=== PATIENT | male | born 1980 | race American Indian/Alaskan Native ===

== ENCOUNTER 2021-05-23 09:14 | Inpatient (IN) | payer OTHER ==
[2021-05-23] MEDS ORDERED: NALOXONE 2 MG/2 ML INJ ONE ×3 (09:16→09:32)
[2021-05-23] MEDS ORDERED: LACTATED RINGERS 1,000 ML ONE (09:27)
[2021-05-23] MEDS ORDERED: NALOXONE 0.4 MG/1 ML INJ IV ONE (09:27)
--- NOTE | 2021-05-23 09:43 | Emergency Department Report ---
<JEANNIE ZAPATA - Last Filed: 05/23/21 11:35> History of Present Illness - General Chief Complaint: Overdose Stated Complaint: OVERDOSE Time Seen by Provider: 05/23/21 09:26 - Related Data Home Medications Medication Instructions Recorded Confirmed Last Taken Unobtainable 09/13/13 09/13/13 Unknown Allergies Allergy/AdvReac Type Severity Reaction Status Date / Time No Known Allergies Allergy Unverified 09/13/13 00:07 ED Past Medical Hx - Medications Home Medications: Home Medications Medication Instructions Recorded Confirmed Last Taken Type Unobtainable 09/13/13 09/13/13 Unknown History - Intubation Time Out Performed: Yes Sedative: Etomidate Mg Given: 20 Paralytic: Succinylcholine Mg Given: 200 Laryngoscope: fiberoptic video scope Size: 4 ET Tube Size: 7.5 Tube Secured Depth (cm): 26 Tube Secured Location: teeth Tube Placement Confirmation: visualized tube passing t, equal breath sounds bilat, no breath sounds over epi, confirmation by capnometr Patient Tolerated Procedure: well, no complications Intubation Complications: none Additional Comments: Done by Jeannie Zapata PA-C ED Medical Decision Making - Lab Data Result diagrams: 05/23/21 09:38 05/23/21 09:38 ED Disposition Clinical Impression: Obtundation Hypothermia Qualifiers: Encounter type: initial encounter Qualified Code(s): T68.XXXA - Hypothermia, initial encounter Overdose Qualifiers: Encounter type: initial encounter Injury intent: undetermined intent Qualified Code(s): T50.904A - Poisoning by unspecified drugs, medicaments and biological substances, undetermined, initial encounter Pulmonary edema Qualifiers: Chronicity: acute Qualified Code(s): J81.0 - Acute pulmonary edema Disposition: 09 ADMITTED INPATIENT Condition: Stable Instructions: Pulmonary Edema (ED) Referrals: PRIMARY CARE, [Primary Care Provider] - 3-5 Days <CARA FELDMAN - Last Filed: 05/23/21 11:46> History of Present Illness - History of Present Illness Initial Comments: Patient was brought in by EMS secondary to a possible overdose. EMS provides all the history as the patient is obtunded. EMS reports that they were initially called for a cardiac arrest. They arrived on scene and found the house filled with a bunch of family. The patient was reportedly unresponsive. Some family mentioned that he had overdosed on GHB. Paramedics established an IO because IV peripherally was unsuccessful. They administered Narcan intranasal without symptomatic change. They did state that his respirations did picked up but he never regained lucidity or consciousness. They transported the patient here with ongoing treatment. He was on mask for oxygen. He had a nasopharyngeal airway and an oropharyngeal airway. He had sonorous respirations. Paramedics report that the patient has a history of heart disease and CHF. Apparently he also has a history of drug abuse. ED Review of Systems ROS: Stated complaint: OVERDOSE Other details as noted in HPI Comment: Unobtainable due to pts medical conditions ED Past Medical Hx - Past Medical History Hx Congestive Heart Failure: No Hx Diabetes: No Hx Arthritis: No Hx Asthma: No Hx COPD: No Additional medical history: Cannot be obtained for the patient secondary to obt undation and altered mental status - Surgical History Additional Surgical History: Cannot be obtained for the patient secondary to obtundation and altered mental status - Social History Smoking Status: Current Every Day Smoker Substance Use Type: Other (Cannot be obtained for the patient secondary to obtundation and altered mental status) ED Physical Exam - General Limitations: Altered Mental Status, Other (Patient is obtunded. Pulse ox was hypoxic on a nonrebreather. He has sonorous respirations.) General appearance: obtunded - Head Head exam: Present: atraumatic, normocephalic - Eye Eye exam: Present: normal appearance, other (Pupils are 3 mm and sluggish). Absent: scleral icterus - ENT ENT exam: Present: normal orophraynx, normal external ear exam, other (No pooling secretions) - Neck Neck exam: Present: normal inspection, other (Trachea midline) - Respiratory Respiratory exam: Present: rhonchi (Bilateral). Absent: respiratory distress - Cardiovascular Cardiovascular Exam: Present: regular rate, normal rhythm - GI/Abdominal GI/Abdominal exam: Present: soft - Extremities Exam Extremities exam: Absent: pedal edema - Back Exam Back exam: Present: normal inspection - Neurological Exam Neurological exam: Present: altered (Obtunded), other (Appropriate withdrawal to painful stimuli) - Psychiatric Psychiatric exam: Present: other (Obtunded) - Skin Skin exam: Present: other (Cold to touch) ED Course Vital Signs 05/23/21 05/23/21 05/23/21 09:22 09:26 09:27 Temperature 92.9 F L Pulse Rate 84 86 Respiratory 27 H 23 Rate Blood Pressure 130/96 128/89 [Right] O2 Sat by Pulse 87 92 91 Oximetry 05/23/21 05/23/21 05/23/21 10:16 10:37 11:27 Temperature Pulse Rate 100 H 93 H 103 H Respiratory 21 26 H 21 Rate Blood Pressure 126/82 136/93 120/87 [Right] O2 Sat by Pulse 96 92 86 Oximetry - Reevaluation(s) Reevaluation #1: 05/23/21 09:43 EMS have been met on arrival. Narcan had been given multiple times. EJ was placed. IV fluids were ordered. Labs were ordered. Old records noted. Reevaluation #2: 05/23/21 10:17 Core temperature had previously been noted and Isabelle hugger started. Labs are still pending. Reevaluation #3: 05/23/21 11:44 Patient was intubated by the PABLO with my direct supervision. Patient was subsequently admitted to Dr. Florian. 05/23/21 11:45 ED Medical Decision Making - Lab Data Result diagrams: 05/23/21 09:38 05/23/21 09:38 Rhythm strip: Normal sinus rhythm without ectopy per monitor observe 10 seconds. - Radiology Data Radiology results: report reviewed - Medical Decision Making Patient presented by EMS as an overdose. The history that we have is that he overdosed on GHB. We cannot confirm this. His urine drug screen has been reviewed. Patient was hypoxic. He was somnolent. He did not have pooling secretions and he still had a gag, but it was felt that he needed intubation based on his degree of hypoxia and obtundation. He has been intubated will go to the ICU. Poison control can be notified of a possible GHB overdose. Patient does not have any obvious infectious pathology. There is no visible sign of trauma suggestive of injury. He was hypothermic and this has been addressed with Isabelle hugger and warming mechanisms. Critical Care Time: Yes (55 minutes exclusive of all procedures) Critical care attestation.: If time is entered above; I have spent that time in minutes in the direct care of this critically ill patient, excluding procedure time. ED Disposition Is pt being admited?: Yes
[2021-05-23 10:21] LABS: Basophils # (Auto) 0.1 K/mm3 (0.0-0.1); Basophils % (Auto) 1.2 % (0.0-1.8); Eosinophils % (Auto) 0.3 % (0.0-4.3); Hematocrit 46.2 % (35.5-45.6); Hemoglobin 14.7 gm/dl (11.8-15.2); Lymphocytes # (Auto) 2.5 K/mm3 (1.2-5.4); Lymphocytes % (Auto) 27.1 % (13.4-35.0); Mean Corpuscular HGB Conc 32 % (32-34); Mean Corpuscular Volume 91 fl (84-94); Monocytes # (Auto) 0.5 K/mm3 (0.0-0.8); Monocytes % (Auto) 5.5 % (0.0-7.3); Platelet Count 268 K/mm3 (140-440); Red Blood Count 5.09 M/mm3 (3.65-5.03); Red Cell Distribution Width 15.1 % (13.2-15.2)
[2021-05-23 10:39] LABS: ABG Base Excess -3.7 mmol/L (-2.0-3.0); ABG HCO3 21.2 mmol/L (20.0-26.0); ABG Methemoglobin 0.7 % (0.0-1.5); ABG Oxygen Saturation 83.7 % (95.0-99.0); ABG PCO2 38.4 mm Hg; ABG PH 7.361 pH Units (7.350-7.450); ABG PO2 52.2 mm Hg (80.0-90.0)
[2021-05-23 10:42] LABS: Alanine Aminotransferase 27 units/L (7-56); Albumin 3.6 g/dL (3.9-5); BUN/Creatinine Ratio 14; Blood Urea Nitrogen 17 mg/dL (9-20); Calcium 9.2 mg/dL (8.4-10.2); Hemolysis Index 2
--- NOTE | 2021-05-23 10:45 | XRay Report ---
XR chest 1V ap INDICATION / CLINICAL INFORMATION: overdose. COMPARISON: 09/13/2013 FINDINGS: SUPPORT DEVICES: None. HEART /PULMONARY VASCULATURE: Heart is enlarged. Mild pulmonary vasculature congestion. LUNGS / PLEURA: No significant pulmonary or pleural abnormality. No pneumothorax. IMPRESSION: Mild CHF/volume overload. Signer Name: Ezra Chavez MD Signed: 05/23/2021 10:40 AM Workstation Name: [id number]
[2021-05-23] MEDS ORDERED: SUCCINYLCHOLINE CHLORIDE 200 MG/10 ML INJ MDV IV ONE (10:55)
[2021-05-23] MEDS ORDERED: ETOMIDATE 20 MG/10 ML INJ IV ONE ×2 (10:55→12:00)
[2021-05-23 10:59] LABS: Benzodiazepines Screen,Urine Negative; Cannabinoid Screen,Urine Negative; Cocaine Screen,Urine Negative; Methadone Screen,Urine Negative; Opiate Screen,Urine Negative
[2021-05-23 11:11] LABS: Amphetamine Screen,Urine Positive
[2021-05-23] MEDS: FUROSEMIDE 40 MG/4 ML INJ IV ONE ×2 (11:31→11:32)
[2021-05-23] MEDS ORDERED: HYDROmorphone 1 MG/1 ML INJ IV PRN (11:43)
[2021-05-23] MEDS ORDERED: MORPHINE 2 MG/1 ML INJ IV PRN (11:43)
[2021-05-23] MEDS ORDERED: ONDANSETRON 4 MG/2 ML INJ IV PRN (11:43)
--- NOTE | 2021-05-23 11:43 | History and Physical Report ---
History of Present Illness Chief complaint: Unresponsive History of present illness: 40 YO Male with Methamphetamine Dependence, Nicotine Dependence presents to ED for evaluation. Pt is intubated and ambulatory support at time of evaluation and is unable to provide history. Patient history taken by EMS staff, ED staff, as well as patient family was made available by telephone for interview. As per family the patient was found down and unresponsive today. EMS was notified by family members and upon arrival the patient was found to be in distress. Patient family reports that patient "overdosed on GHB". Patient treated with intranasal Narcan without improvement in symptoms. The patient was subsequently transported to [facility] for further care and evaluation of the aforementioned symptoms. The patient was seen and evaluated in the emergency department. All lab and imaging studies reviewed. The patient was found to be unresponsive and unable to protect his airway. The patient was intubated for airway protection. Patient found to have acute encephalopathy, and hypothermia. Poison control notification by ED staff physician requested prior to admission. Patient admitted to ICU and treated with supportive care. Critical care team consulted. No reports of fever, chills, chest pain, palpitation, productive cough, skin rash, recent ill contacts, known exposure to COVID-19. No prior admission for r shanicew. No medication listed at time of admission for reconciliation. Advanced care planning conducted in ED. Mental health team consulted. Past History Past Medical History: other (See HPI) Past Surgical History: No surgical history, Other (Reviewed) Social history: single. denies: smoking Family history: hypertension Medications and Allergies Allergies Allergy/AdvReac Type Severity Reaction Status Date / Time No Known Allergies Allergy Unverified 09/13/13 00:07 Home Medications Medication Instructions Recorded Confirmed Last Taken Type Unobtainable 09/13/13 09/13/13 Unknown History Active Meds: Active Medications Propofol (Diprivan 10 Mg/Ml) 1,000 mg in 100 mls @ 12.247 mls/hr IV TITR MARK; Protocol Midazolam HCl (Midazolam 5 Mg/5 Ml Inj Mdv) 4 mg IV ONCE NR Stop: 05/23/21 13:00 Last Admin: 05/23/21 11:32 Dose: 4 mg Review of Systems ROS unobtainable: due to endotracheal tube, due to mental status Exam - Constitutional Vitals: Temp Pulse Resp BP Pulse Ox 92.9 F L 103 H 21 120/87 86 05/23/21 09:27 05/23/21 11:27 05/23/21 11:27 05/23/21 11:27 05/23/21 11:27 General appearance: Present: mild distress, obese - EENT Eyes: Present: miosis ENT: hearing decreased - Neck Neck: Present: supple, normal ROM - Respiratory Respiratory effort: labored Respiratory: bilateral: diminished - Cardiovascular Heart Sounds: Present: S1 & S2. Absent: rub, click - Extremities Extremities: pulses symmetrical, No edema Peripheral Pulses: within normal limits - Abdominal General gastrointestinal: Present: soft, non-tender, non-distended, normal bowel sounds Male genitourinary: Present: normal - Integumentary Integumentary: Present: clear, warm, dry - Musculoskeletal Musculoskeletal: generalized weakness - Psychiatric Psychiatric: no appropriate mood/affect, no intact judgment & insight, no memory intact - Neurologic Neurologic: CNII-XII intact, no focal deficits, moves all extremities, no gait normal HEART Score - HEART Score Troponin: Troponin T < 0.010 ng/mL (0.00-0.029) 05/23/21 09:38 Results - Labs CBC & Chem 7: 05/23/21 09:38 05/23/21 09:38 Labs: Abnormal lab results 05/23/21 05/23/21 05/23/21 Range/Units 09:38 09:38 09:38 RBC 5.09 H (3.65-5.03) M/mm3 Hct 46.2 H (35.5-45.6) % ABG pO2 (80.0-90.0) mm Hg ABG O2 Saturation (95.0-99.0) % ABG Base Excess (-2.0-3.0) mmol/L Oxyhemoglobin (95.0-99.0) % Carbon Dioxide 20 L (22-30) mmol/L Glucose 147 H (75-100) mg/dL NT-Pro-B Natriuret Pep (0-450) pg/mL Albumin 3.6 L (3.9-5) g/dL Salicylates < 0.3 L (2.8-20.0) mg/dL Acetaminophen (10.0-30.0) ug/mL 05/23/21 05/23/21 05/23/21 Range/Units 09:38 09:38 Unknown RBC (3.65-5.03) M/mm3 Hct (35.5-45.6) % ABG pO2 52.2 L (80.0-90.0) mm Hg ABG O2 Saturation 83.7 L (95.0-99.0) % ABG Base Excess -3.7 L (-2.0-3.0) mmol/L Oxyhemoglobin 81.1 L (95.0-99.0) % Carbon Dioxide (22-30) mmol/L Glucose (75-100) mg/dL NT-Pro-B Natriuret Pep 6058 H (0-450) pg/mL Albumin (3.9-5) g/dL Salicylates (2.8-20.0) mg/dL Acetaminophen 5.0 L (10.0-30.0) ug/mL Assessment and Plan - Patient Problems (1) Acute respiratory failure Current Visit: Yes Status: Acute Qualifiers: Respiratory failure complication: hypoxia Qualified Code(s): J96.01 - Acute respiratory failure with hypoxia Plan to address problem: Patient intubated and on ventilatory support. Wean vent as tolerated. ABG, sedation holiday, spontaneous breathing trial. The high probability of a clinically significant, sudden or life threatening deterioration of the [pulmonary, neuro, endocrine] system(s) required my full and direct attention, intervention and personal management. The aggregate critical care time was [65] minutes. This time is in addition to time spent performing reported procedures but includes the following: [x] Data Review and interpretation [x] Patient assessment and monitoring of vital signs [x] Documentation [x] Medication orders and management (2) Acute encephalopathy Current Visit: Yes Status: Acute Plan to address problem: Supportive care, neurochecks, seizure precautions, aspiration precautions, supportive care. (3) Hypothermia Current Visit: Yes Status: Acute Qualifiers: Encounter type: initial encounter Qualified Code(s): T68.XXXA - Hypothermia, initial encounter Plan to address problem: Warming blanket, supportive care, bear hugger. (4) Overdose by ingestion Current Visit: Yes Status: Acute (5) DVT prophylaxis Current Visit: No Status: Acute Plan to address problem: SCDs to bilateral lower extremities while in bed (6) Advance care planning Current Visit: Yes Status: Acute Plan to address problem: Disease education conducted, care plan discussed, diagnosis discussed, prognosis discussed, patient is full code. Patient family acknowledges understanding and agreement with care plan, +30 minutes. (7) Nicotine dependence Current Visit: Yes Status: Acute Qualifiers: Nicotine product type: cigarettes Plan to address problem: Supportive care, nicotine transdermal patch as clinically indicated. +15 minutes.
--- NOTE | 2021-05-23 11:53 | XRay Report ---
XR chest 1V ap INDICATION / CLINICAL INFORMATION: intubation. COMPARISON: Radiograph from earlier same day. FINDINGS: SUPPORT DEVICES: Endotracheal tube projects over the midtrachea. HEART /PULMONARY VASCULATURE: Unchanged cardiomegaly and pulmonary vasculature congestion. LUNGS / PLEURA: Mild diffuse interstitial edema. No sizable pleural effusion. No pneumothorax. IMPRESSION: Satisfactory position of endotracheal tube. Signer Name: Ezra Chavez MD Signed: 05/23/2021 11:48 AM Workstation Name: [id number]
[2021-05-23] MEDS ORDERED: SUCCINYLCHOLINE CHLORIDE 200 MG/10 ML INJ MDV ONE (12:00)
[2021-05-23] MEDS ORDERED: MIDAZOLAM 5 MG/5 ML INJ MDV IV NR (12:00)
[2021-05-23] MEDS ORDERED: MIDAZOLAM 5 MG/5 ML INJ MDV IV ONE ×2 (12:00→13:44)
[2021-05-23 13:02] LABS: ABG Base Excess -6.7 mmol/L (-2.0-3.0); ABG HCO3 22.1 mmol/L (20.0-26.0); ABG Methemoglobin 0.6 % (0.0-1.5); ABG Oxygen Saturation 93.5 % (95.0-99.0); ABG PCO2 56.9 mm Hg; ABG PH 7.208 pH Units (7.350-7.450); ABG PO2 83.5 mm Hg (80.0-90.0)
[2021-05-23] MEDS: SODIUM CHLORIDE 0.9% 1000 ML 1,000 ML IV SCH (16:57)
[2021-05-23] MEDS: ACETAMINOPHEN 650 MG RECT SUPP PR PRN (17:07)
[2021-05-23 18:07] LABS: ABG Base Excess -4.5 mmol/L (-2.0-3.0); ABG HCO3 23.3 mmol/L (20.0-26.0); ABG Methemoglobin 0.5 % (0.0-1.5); ABG Oxygen Saturation 94.6 % (95.0-99.0); ABG PCO2 52.5 mm Hg; ABG PH 7.265 pH Units (7.350-7.450); ABG PO2 80.7 mm Hg (80.0-90.0)
[2021-05-23] MEDS: MIDAZOLAM 2 MG/2 ML INJ IV PRN (23:57)
[2021-05-23] MEDS: MIDAZOLAM 100 MG in SODIUM CHLORIDE 0.9% 80 ML IV SCH (23:59)
[2021-05-24] MEDS: MIDAZOLAM 2 MG/2 ML INJ IV PRN ×4 (00:18→07:30)
[2021-05-24] MEDS: fentaNYL DRIP Premix 2,000 MCG/100 ML BAG IV SCH ×2 (00:50→18:23)
[2021-05-24] MEDS: fentaNYL 100 MCG/2 ML INJ IV PRN ×3 (00:55→22:38)
[2021-05-24] MEDS ORDERED: ALBUMIN HUMAN 25% (25 GM/100 ML) INJ IV ONE (04:39)
[2021-05-24] MEDS ORDERED: SODIUM BICARB 8.4% 50 MEQ/50 ML SYRINGE IV ONE (04:39)
[2021-05-24 05:44] LABS: Hematocrit 47.3 % (35.5-45.6); Hemoglobin 15.1 gm/dl (11.8-15.2); Mean Corpuscular HGB Conc 32 % (32-34); Mean Corpuscular Volume 90 fl (84-94); Platelet Count 240 K/mm3 (140-440); Red Blood Count 5.23 M/mm3 (3.65-5.03); Red Cell Distribution Width 15.3 % (13.2-15.2)
[2021-05-24 06:12] LABS: Albumin 2.8 g/dL (3.9-5); Calcium 8.7 mg/dL (8.4-10.2)
[2021-05-24 07:10] LABS: Monocytes % (Manual) 0 % (0.0-7.3); Total Cells Counted 100
[2021-05-24 07:11] LABS: Basophils % (Manual) 0 % (0.0-1.8); Eosinophils % (Manual) 0 % (0.0-4.3); Myelocytes # (Manual) 11.7 K/mm3; Platelet Estimate Consistent w Auto; Promyelocytes # (Manual) 0.7 K/mm3
[2021-05-24] MEDS ORDERED: INSULIN REGULAR, HUMAN 100 UNITS/1 ML IV ONE (07:15)
[2021-05-24] MEDS ORDERED: SODIUM POLYSTYRENE 15 GM/60 ML ORAL LIQD PO ONE (07:15)
[2021-05-24] MEDS ORDERED: DEXTROSE 50% IN WATER (25GM) 50 ML SYRINGE IV ONE (07:15)
[2021-05-24] MEDS ORDERED: CALCIUM GLUCONATE 1,000 MG in SODIUM CHLORIDE 0.9% 100 ML IV ONE (07:15)
[2021-05-24] MEDS ORDERED: DEXTROSE 50% IN WATER (25GM) 50 ML SYRINGE IV SCH (08:30)
--- NOTE | 2021-05-24 08:44 | Progress Note ---
Assessment and Plan Assessment and plan: #Acute hypoxic respiratory failure - Intubated for airway protection - AB.3/38.4/52./21 on admission - CXR: mild interstitial edema - SAT/SBT trials daily - cxr/abg q48hr - PCCM consulted #Acute toxic metabolic encephalopathy - Encephalopathic on arrival. multifactorial drug OD, analia. - tox screen positive for amphetamines - Supportive management: IVF, monitor electrolytes - daily SAT trials. #Acute kidney injury due to acute tubular necrosis - Cr: 3.5 on 03/24, baseline 0.9. suspect dehydration vs toxic exposure vs rhabdo - ordered UA and CK. - avoid nephrotoxic agents - IVF, monitor volume status daily. - strict I/O, christianson - consult nephrology #Hyperkalemia - 6.3 on 03/24, s/p kionex, sodium bicarb, insulin, calcium gluconate - f/u repeat - nephrology consulted #Hypothermia - temp has normalized. #Overdose by ingestion - amphetamines in tox screen #Advance care planning Disease education conducted, care plan discussed, diagnoses discussed, prognosis discussed, patient is full code, patient acknowledges understanding and agree with care plan, +30 minutes. The high probability of a clinically significant, sudden or life threatening deterioration of the [pulmonary, renal] system(s) required my full and direct attention, intervention and personal management. The aggregate critical care time was [60] minutes. This time is in addition to time spent performing reported procedures but includes the following: [x] Data Review and interpretation [x] Patient assessment and monitoring of vital signs [x] Documentation [x] Medication orders and management History Interval history: Remains intubated and sedated. BP noted to be hypotensive and unresponsive to fluid bolus. Started levophed gtt. Hospitalist Physical - Physical exam Narrative exam: Physical Exam: VITAL SIGNS: Reviewed. GENERAL: The patient appears normally developed, Vital signs as documented. Intubated and sedated HEAD: No signs of head trauma. EYES: Pupils are equal. Extraocular motions intact. EARS: Hearing grossly intact. MOUTH: Oropharynx is normal. NECK: No adenopathy, no JVD. CHEST: Chest with clear breath sounds bilaterally. No wheezes, rales, or rhonchi. CARDIAC: Regular rate and rhythm. S1 and S2, without murmurs, gallops, or rubs. VASCULAR: No Edema. Peripheral pulses normal and equal in all extremities. ABDOMEN: Soft, non tender and non distended. No rebound or guarding, and no masses palpated. Bowel Sounds normal. MUSCULOSKELETAL: Good range of motion of all major joints. Extremities without clubbing, cyanosis or edema. NEUROLOGIC EXAM: Alert and oriented x 4. no focal sensory or strength deficits. PSYCHIATRIC: Mood normal. SKIN: detail exam as documented in skin assessment - Constitutional Vitals: Temp Pulse Resp BP Pulse Ox 98.4 F 107 H 31 H 66/40 98 05/24/21 03:16 05/24/21 08:00 05/24/21 08:00 05/24/21 08:00 05/24/21 08:00 General appearance: Present: mild distress, obese HEART Score - HEART Score Troponin: Troponin T < 0.010 ng/mL (0.00-0.029) 05/23/21 09:38 Results - Labs CBC & Chem 7: 05/24/21 05:14 05/24/21 05:14 Labs: Laboratory Last Values WBC 23.3 K/mm3 (4.5-11.0) H 05/24/21 05:14 RBC 5.23 M/mm3 (3.65-5.03) H 05/24/21 05:14 Hgb 15.1 gm/dl (11.8-15.2) 05/24/21 05:14 Hct 47.3 % (35.5-45.6) H 05/24/21 05:14 MCV 90 fl (84-94) 05/24/21 05:14 MCH 29 pg (28-32) 05/24/21 05:14 MCHC 32 % (32-34) 05/24/21 05:14 RDW 15.3 % (13.2-15.2) H 05/24/21 05:14 Plt Count 240 K/mm3 (140-440) 05/24/21 05:14 Lymph % (Auto) 27.1 % (13.4-35.0) 05/23/21 09:38 [place] % (Auto) 5.5 % (0.0-7.3) 05/23/21 09:38 Eos % (Auto) 0.3 % (0.0-4.3) 05/23/21 09:38 Baso % (Auto) 1.2 % (0.0-1.8) 05/23/21 09:38 Lymph # (Auto) 2.5 K/mm3 (1.2-5.4) 05/23/21 09:38 [place] # (Auto) 0.5 K/mm3 (0.0-0.8) 05/23/21 09:38 Eos # (Auto) 0.0 K/mm3 (0.0-0.4) 05/23/21 09:38 Baso # (Auto) 0.1 K/mm3 (0.0-0.1) 05/23/21 09:38 Add Manual Diff Complete 05/24/21 05:14 Total Counted 100 05/24/21 05:14 Seg Neutrophils % Housekeeper Supervisor 05/24/21 05:14 Seg Neuts % (Manual) 12.0 % (40.0-70.0) L 05/24/21 05:14 Band Neutrophils % 30.0 % 05/24/21 05:14 Lymphocytes % (Manual) 3.0 % (13.4-35.0) L 05/24/21 05:14 Reactive Lymphs % (Man) 1.0 % 05/24/21 05:14 Monocytes % (Manual) 0 % (0.0-7.3) 05/24/21 05:14 Eosinophils % (Manual) 0 % (0.0-4.3) 05/24/21 05:14 Basophils % (Manual) 0 % (0.0-1.8) 05/24/21 05:14 Metamyelocytes % 1.0 % 05/24/21 05:14 Myelocytes % 50.0 % 05/24/21 05:14 Promyelocytes % 3.0 % 05/24/21 05:14 Blast Cells % 0 % 05/24/21 05:14 Nucleated RBC % Not Reportable 05/24/21 05:14 Seg Neutrophils # 6.1 K/mm3 (1.8-7.7) 05/23/21 09:38 Seg Neutrophils # Man 2.8 K/mm3 (1.8-7.7) 05/24/21 05:14 Band Neutrophils # 7.0 K/mm3 05/24/21 05:14 Lymphocytes # (Manual) 0.7 K/mm3 (1.2-5.4) L 05/24/21 05:14 Abs React Lymphs (Man) 0.2 K/mm3 05/24/21 05:14 Monocytes # (Manual) 0.0 K/mm3 (0.0-0.8) 05/24/21 05:14 Eosinophils # (Manual) 0.0 K/mm3 (0.0-0.4) 05/24/21 05:14 Basophils # (Manual) 0.0 K/mm3 (0.0-0.1) 05/24/21 05:14 Metamyelocytes # 0.2 K/mm3 05/24/21 05:14 Myelocytes # 11.7 K/mm3 05/24/21 05:14 Promyelocytes # 0.7 K/mm3 05/24/21 05:14 Blast Cells # 0.0 K/mm3 05/24/21 05:14 WBC Morphology Not Reportable 05/24/21 05:14 Hypersegmented Neuts Not Reportable 05/24/21 05:14 Hyposegmented Neuts Not Reportable 05/24/21 05:14 Hypogranular Neuts Not Reportable 05/24/21 05:14 Smudge Cells Not Reportable 05/24/21 05:14 Toxic Granulation Not Reportable 05/24/21 05:14 Toxic Vacuolation Not Reportable 05/24/21 05:14 Dohle Bodies Not Reportable 05/24/21 05:14 Pelger-Huet Anomaly Not Reportable 05/24/21 05:14 Glenn Rods Not Reportable 05/24/21 05:14 Platelet Estimate Consistent w auto 05/24/21 05:14 Clumped Platelets Not Reportable 05/24/21 05:14 Plt Clumps, EDTA Not Reportable 05/24/21 05:14 Large Platelets Not Reportable 05/24/21 05:14 Giant Platelets Not Reportable 05/24/21 05:14 Platelet Satelliting Not Reportable 05/24/21 05:14 Plt Morphology Comment Not Reportable 05/24/21 05:14 RBC Morphology Not Reportable 05/24/21 05:14 Dimorphic RBCs Not Reportable 05/24/21 05:14 Polychromasia Not Reportable 05/24/21 05:14 Hypochromasia Not Reportable 05/24/21 05:14 Poikilocytosis Not Reportable 05/24/21 05:14 Anisocytosis Not Reportable 05/24/21 05:14 Microcytosis Not Reportable 05/24/21 05:14 Macrocytosis Not Reportable 05/24/21 05:14 Spherocytes Not Reportable 05/24/21 05:14 Pappenheimer Bodies Not Reportable 05/24/21 05:14 Sickle Cells Not Reportable 05/24/21 05:14 Target Cells Not Reportable 05/24/21 05:14 Tear Drop Cells Not Reportable 05/24/21 05:14 Ovalocytes Not Reportable 05/24/21 05:14 Helmet Cells Not Reportable 05/24/21 05:14 [place] Bodies Not Reportable 05/24/21 05:14 Turner Rings Not Reportable 05/24/21 05:14 [place] Cells Not Reportable 05/24/21 05:14 Bite Cells Not Reportable 05/24/21 05:14 Crenated Cell Not Reportable 05/24/21 05:14 Elliptocytes Not Reportable 05/24/21 05:14 Acanthocytes (Spur) Not Reportable 05/24/21 05:14 Rouleaux Not Reportable 05/24/21 05:14 Hemoglobin C Crystals Not Reportable 05/24/21 05:14 Schistocytes Not Reportable 05/24/21 05:14 Malaria parasites Not Reportable 05/24/21 05:14 Frandy Bodies Not Reportable 05/24/21 05:14 Hem Pathologist Commnt No 05/24/21 05:14 ABG pH 7.241 (7.320-7.450) L 05/24/21 03:44 POC ABG pCO2 41.6 mmHg (32.0-48.0) 05/24/21 03:44 ABG pCO2 38.4 mm Hg 05/23/21 Unknown POC ABG pO2 87.6 mmHg (83-108) 05/24/21 03:44 ABG pO2 52.2 mm Hg (80.0-90.0) L 05/23/21 Unknown POC ABG HCO3 17.5 05/24/21 03:44 ABG HCO3 21.2 mmol/L (20.0-26.0) 05/23/21 Unknown ABG O2 Saturation 95.8 (0-100) 05/24/21 03:44 ABG O2 Content 17.4 (0.0-44) 05/23/21 Unknown POC ABG Base Excess -9.5 05/24/21 03:44 ABG Base Excess -3.7 mmol/L (-2.0-3.0) L 05/23/21 Unknown ABG Hemoglobin 16.6 (12.0-17.5) 05/24/21 03:44 ABG Oxyhemoglobin 94.8 (94-98) 05/24/21 03:44 ABG Carboxyhemoglobin 2.5 % (0.0-5.0) 05/23/21 Unknown ABG Methemoglobin 0.2 (0.0-1.5) 05/24/21 03:44 ABG Sodium 137.9 mmol/L (136.0-145.0) 05/24/21 03:44 ABG Potassium 5.6 mmol/L (3.40-4.50) H 05/24/21 03:44 ABG Chloride 105.0 mmol/L (98-107) 05/24/21 03:44 ABG Glucose 53 mg/dL (65-95) L 05/24/21 03:44 Oxyhemoglobin 81.1 % (95.0-99.0) L 05/23/21 Unknown Carboxyhemoglobin 0.8 (0.5-1.5) 05/24/21 03:44 FiO2 100 % 05/23/21 Unknown FiO2 % 100.0 05/24/21 03:44 Sodium 144 mmol/L (137-145) 05/24/21 05:14 Potassium 6.3 mmol/L (3.6-5.0) H* D 05/24/21 05:14 Chloride 107.3 mmol/L (98-107) H 05/24/21 05:14 Carbon Dioxide 20 mmol/L (22-30) L 05/24/21 05:14 Anion Gap 23 mmol/L 05/24/21 05:14 BUN 33 mg/dL (9-20) H 05/24/21 05:14 Creatinine 3.5 mg/dL (0.8-1.3) H D 05/24/21 05:14 Estimated GFR 24 ml/min 05/24/21 05:14 BUN/Creatinine Ratio 9 % 05/24/21 05:14 Glucose 56 mg/dL (75-100) L 05/24/21 05:14 Calcium 8.7 mg/dL (8.4-10.2) 05/24/21 05:14 Total Bilirubin 1.90 mg/dL (0.1-1.2) H 05/24/21 05:14 AST 40 units/L (5-40) 05/24/21 05:14 ALT 24 units/L (7-56) 05/24/21 05:14 Alkaline Phosphatase 76 units/L (35-129) 05/24/21 05:14 Troponin T < 0.010 ng/mL (0.00-0.029) 05/23/21 09:38 NT-Pro-B Natriuret Pep 6058 pg/mL (0-450) H 05/23/21 09:38 Total Protein 4.9 g/dL (6.3-8.2) L D 05/24/21 05:14 Albumin 2.8 g/dL (3.9-5) L 05/24/21 05:14 Albumin/Globulin Ratio 1.3 % 05/24/21 05:14 Arterial Blood Glucose 53 mg/dL (65-95) L 05/24/21 03:44 Arterial Blood Ionized Calcium 4.6 mg/dL (4.6-5.3) 05/24/21 03:44 Salicylates < 0.3 mg/dL (2.8-20.0) L 05/23/21 09:38 Urine Opiates Screen Negative 05/23/21 09:41 Urine Methadone Screen Negative 05/23/21 09:41 Acetaminophen 5.0 ug/mL (10.0-30.0) L 05/23/21 09:38 Ur Barbiturates Screen Negative 05/23/21 09:41 Ur Phencyclidine Scrn Negative 05/23/21 09:41 Ur Amphetamines Screen Positive 05/23/21 09:41 U Benzodiazepines Scrn Negative 05/23/21 09:41 Urine Cocaine Screen Negative 05/23/21 09:41 U Marijuana (THC) Screen Negative 05/23/21 09:41 Drugs of Abuse Note Disclamer 05/23/21 09:41 Active Medications - Current Medications Current Medications: Generic Name Dose Route Start Last Admin Trade Name Freq PRN Reason Stop Dose Admin Acetaminophen 650 mg 05/23/21 11:43 05/23/21 17:07 Acetaminophen 650 Mg Rect Supp NC 650 mg Q6H PRN Administration Pain MILD(1-3)/Fever >100.5/EPSTEIN Dextrose 50 ml 05/24/21 08:30 Dextrose 50% In Water (25gm) 50 Ml Syringe IV 05/24/21 10:00 ONCE@0830 MARK Protocol Fentanyl 50 mcg 05/24/21 00:44 05/24/21 00:55 Fentanyl 100 Mcg/2 Ml Inj IV 50 mcg Q10MIN PRN Administration ANALGESIA Hydromorphone HCl 0.5 mg 05/23/21 11:43 Hydromorphone 1 Mg/1 Ml Inj IV Q24H PRN Pain , Severe (7-10) Sodium Chloride 1,000 mls @ 125 mls/hr 05/23/21 14:00 05/23/21 16:57 Nacl 0.9% 1000 Ml IV 125 mls/hr DIRECT MARK Administration Midazolam HCl 100 mg/ Sodium 100 mls @ 1 mls/hr 05/23/21 22:22 05/24/21 07:50 Chloride IV 2 mg/hr TITR MARK 2 mls/hr Titration Protocol 1 MG/HR Propofol 1,000 mg in 100 mls @ 3.062 mls/hr 05/24/21 01:00 05/24/21 03:05 Diprivan 10 Mg/Ml IV 0 mcg/kg/min TITR MARK 0 mls/hr Titration Protocol 5 MCG/KG/MIN Fentanyl Citrate 2,000 mcg in 100 mls @ 5.103 mls/hr 05/24/21 01:00 05/24/21 06:00 Fentanyl Drip Premix IV 0 mcg/kg/hr TITR MARK 0 mls/hr Titration Protocol 1 MCG/KG/HR Dexmedetomidine HCl 400 mcg/ 104 mls @ 5.307 mls/hr 05/24/21 05:00 05/24/21 07:00 Sodium Chloride IV 0.2 mcg/kg/hr TITRATE MARK 5.307 mls/hr Administration Protocol 0.2 MCG/KG/HR Morphine Sulfate 2 mg 05/23/21 11:43 Morphine 2 Mg/1 Ml Inj IV Q24H PRN Pain, Moderate (4-6) Ondansetron HCl 4 mg 05/23/21 11:43 Ondansetron 4 Mg/2 Ml Inj IV Q8H PRN Nausea And Vomiting Sodium Chloride 10 ml 05/23/21 22:00 05/24/21 01:57 Sodium Chloride 0.9% 10 Ml Flush Syringe IV Not Given BID MARK Sodium Chloride 10 ml 05/23/21 11:43 Sodium Chloride 0.9% 10 Ml Flush Syringe IV PRN PRN LINE FLUSH
[2021-05-24] MEDS: NORepinephrine/NS 8 MG-250 ML 8 MG/250 ML INFUS..BTL IV SCH ×2 (09:30→23:05)
[2021-05-24 10:15] LABS: Bilirubin,Urine NEG (Negative); Blood,Urine LG (Negative); Color,Urine Amber (Yellow); Mucus,Urine FEW /HPF
--- NOTE | 2021-05-24 10:57 | Event Note ---
Date: 05/24/21 The patient was seen. He is intubated and in restraints. The patient was brought in for OD of unknown substance in which he thought was vodka, according to documentation. Will delay starting psychiatric medications until the patient is more stable. Do not recommend inpatient psychiatric treatment at this time. But this could possibly change. Will continue to follow the patient.
[2021-05-24] MEDS ORDERED: NORepinephrine/NS 8 MG-250 ML 8 MG/250 ML INFUS..BTL IV SCH (11:00)
--- NOTE | 2021-05-24 12:02 | Consultation ---
Past History Past Medical History: other (See HPI) Past Surgical History: No surgical history, Other (Reviewed) Social history: single. denies: smoking Family history: hypertension Medications and Allergies Allergies Allergy/AdvReac Type Severity Reaction Status Date / Time No Known Allergies Allergy Unverified 09/13/13 00:07 Home Medications Medication Instructions Recorded Confirmed Last Taken Type Unobtainable 09/13/13 09/13/13 Unknown History Active Meds: Active Medications Acetaminophen (Acetaminophen 650 Mg Rect Supp) 650 mg UT Q6H PRN PRN Reason: Pain MILD(1-3)/Fever >100.5/EPSTEIN Last Admin: 05/23/21 17:07 Dose: 650 mg Fentanyl (Fentanyl 100 Mcg/2 Ml Inj) 50 mcg IV Q10MIN PRN PRN Reason: ANALGESIA Last Admin: 05/24/21 00:55 Dose: 50 mcg Hydromorphone HCl (Hydromorphone 1 Mg/1 Ml Inj) 0.5 mg IV Q24H PRN PRN Reason: Pain , Severe (7-10) Sodium Chloride (Nacl 0.9% 1000 Ml) 1,000 mls @ 125 mls/hr IV DIRECT MARK Last Admin: 05/23/21 16:57 Dose: 125 mls/hr Midazolam HCl 100 mg/ Sodium (Chloride) 100 mls @ 1 mls/hr IV TITR MARK; Protocol Last Titration: 05/24/21 07:50 Dose: 2 mg/hr, 2 mls/hr Propofol (Diprivan 10 Mg/Ml) 1,000 mg in 100 mls @ 3.062 mls/hr IV TITR MARK; Protocol Last Titration: 05/24/21 03:05 Dose: 0 mcg/kg/min, 0 mls/hr Fentanyl Citrate (Fentanyl Drip Premix) 2,000 mcg in 100 mls @ 5.103 mls/hr IV TITR MARK; Protocol Last Titration: 05/24/21 06:00 Dose: 0 mcg/kg/hr, 0 mls/hr Dexmedetomidine HCl 400 mcg/ (Sodium Chloride) 104 mls @ 5.307 mls/hr IV TITRATE MARK; Protocol Last Admin: 05/24/21 07:00 Dose: 0.2 mcg/kg/hr, 5.307 mls/hr NORepinephrine/NS 8 MG-250 ML (Norepinephrine/Ns 8 Mg-250 Ml (Double Conc)) 8 mg in 250 mls @ 3.75 mls/hr IV TITRATE MARK; Protocol Last Titration: 05/24/21 11:15 Dose: 16 mcg/min, 30 mls/hr Morphine Sulfate (Morphine 2 Mg/1 Ml Inj) 2 mg IV Q24H PRN PRN Reason: Pain, Moderate (4-6) Ondansetron HCl (Ondansetron 4 Mg/2 Ml Inj) 4 mg IV Q8H PRN PRN Reason: Nausea And Vomiting Sodium Chloride (Sodium Chloride 0.9% 10 Ml Flush Syringe) 10 ml IV BID MARK Last Admin: 05/24/21 09:50 Dose: 10 ml Sodium Chloride (Sodium Chloride 0.9% 10 Ml Flush Syringe) 10 ml IV PRN PRN PRN Reason: LINE FLUSH Exam - Constitutional Vitals: Temp Pulse Resp BP Pulse Ox 98.4 F 97 H 30 H 88/50 99 05/24/21 03:16 05/24/21 11:16 05/24/21 11:16 05/24/21 11:16 05/24/21 11:16 Results - Labs CBC & Chem 7: 05/24/21 05:14 05/24/21 05:14 Labs: Abnormal lab results 05/23/21 05/23/21 05/24/21 Range/Units 05:55 12:49 03:44 WBC (4.5-11.0) K/mm3 RBC (3.65-5.03) M/mm3 Hct (35.5-45.6) % RDW (13.2-15.2) % Seg Neuts % (Manual) (40.0-70.0) % Lymphocytes % (Manual) (13.4-35.0) % Lymphocytes # (Manual) (1.2-5.4) K/mm3 ABG pH 7.265 L 7.208 L 7.241 L (7.350-7.450) pH Units ABG O2 Saturation 94.6 L 93.5 L (95.0-99.0) % ABG Base Excess -4.5 L -6.7 L (-2.0-3.0) mmol/L ABG Potassium 5.6 H (3.40-4.50) mmol/L ABG Glucose 53 L (65-95) mg/dL Oxyhemoglobin 92.3 L 91.1 L (95.0-99.0) % Potassium (3.6-5.0) mmol/L Chloride (98-107) mmol/L Carbon Dioxide (22-30) mmol/L BUN (9-20) mg/dL Creatinine (0.8-1.3) mg/dL Glucose (75-100) mg/dL Total Bilirubin (0.1-1.2) mg/dL Total Creatine Kinase (55-170) units/L Total Protein (6.3-8.2) g/dL Albumin (3.9-5) g/dL Arterial Blood Glucose 53 L (65-95) mg/dL Urine WBC (Auto) (0.0-6.0) /HPF 05/24/21 05/24/21 05/24/21 Range/Units 05:14 05:14 09:35 WBC 23.3 H (4.5-11.0) K/mm3 RBC 5.23 H (3.65-5.03) M/mm3 Hct 47.3 H (35.5-45.6) % RDW 15.3 H (13.2-15.2) % Seg Neuts % (Manual) 12.0 L (40.0-70.0) % Lymphocytes % (Manual) 3.0 L (13.4-35.0) % Lymphocytes # (Manual) 0.7 L (1.2-5.4) K/mm3 ABG pH (7.350-7.450) pH Units ABG O2 Saturation (95.0-99.0) % ABG Base Excess (-2.0-3.0) mmol/L ABG Potassium (3.40-4.50) mmol/L ABG Glucose (65-95) mg/dL Oxyhemoglobin (95.0-99.0) % Potassium 6.3 H* D (3.6-5.0) mmol/L Chloride 107.3 H (98-107) mmol/L Carbon Dioxide 20 L (22-30) mmol/L BUN 33 H (9-20) mg/dL Creatinine 3.5 H D (0.8-1.3) mg/dL Glucose 56 L (75-100) mg/dL Total Bilirubin 1.90 H (0.1-1.2) mg/dL Total Creatine Kinase 556 H (55-170) units/L Total Protein 4.9 L D (6.3-8.2) g/dL Albumin 2.8 L (3.9-5) g/dL Arterial Blood Glucose (65-95) mg/dL Urine WBC (Auto) (0.0-6.0) /HPF 05/24/21 Range/Units Unknown WBC (4.5-11.0) K/mm3 RBC (3.65-5.03) M/mm3 Hct (35.5-45.6) % RDW (13.2-15.2) % Seg Neuts % (Manual) (40.0-70.0) % Lymphocytes % (Manual) (13.4-35.0) % Lymphocytes # (Manual) (1.2-5.4) K/mm3 ABG pH (7.350-7.450) pH Units ABG O2 Saturation (95.0-99.0) % ABG Base Excess (-2.0-3.0) mmol/L ABG Potassium (3.40-4.50) mmol/L ABG Glucose (65-95) mg/dL Oxyhemoglobin (95.0-99.0) % Potassium (3.6-5.0) mmol/L Chloride (98-107) mmol/L Carbon Dioxide (22-30) mmol/L BUN (9-20) mg/dL Creatinine (0.8-1.3) mg/dL Glucose (75-100) mg/dL Total Bilirubin (0.1-1.2) mg/dL Total Creatine Kinase (55-170) units/L Total Protein (6.3-8.2) g/dL Albumin (3.9-5) g/dL Arterial Blood Glucose (65-95) mg/dL Urine WBC (Auto) 78.0 H (0.0-6.0) /HPF Assessment and Plan 40 y/o male with suspected overdose and metabolic acidosis 1. CXR shows cardiomegaly with some bibasilar changes. Could be fluid. Suggest swabbing for COVID. Check BNP and obtain 2D echo given heart size. 2. Minimal sedation to assess mental status 3. Wean pressors for MAPS >60 4. Follow up renal recs 5. No ABG prior to intubation. Echo should be a bubble study given degree of hypoxemia seen on ABG CCT 31 minutes.
[2021-05-24 20:20] LABS: Calcium 8.7 mg/dL (8.4-10.2)
[2021-05-24] MEDS: MIDAZOLAM 100 MG in SODIUM CHLORIDE 0.9% 80 ML IV SCH (23:35)
--- NOTE | 2021-05-25 01:15 | XRay Report ---
CHEST 1 VIEW 05/25/2021 12:43 AM INDICATION / CLINICAL INFORMATION: interstitial infiltrates. COMPARISON: 05/23/21 FINDINGS: SUPPORT DEVICES: Endotracheal tube is unchanged. Esophagogastric tube projects over the lower neck. HEART / MEDIASTINUM: Enlarged but stable. LUNGS / PLEURA: Mild bilateral interstitial infiltrates are unchanged. No pneumothorax. ADDITIONAL FINDINGS: No significant additional findings. IMPRESSION: 1. No significant change in the appearance of the chest. 2. Esophagogastric tube projects over the lower neck. Signer Name: Junior Lunsford MD Signed: 05/25/2021 1:10 AM Workstation Name: [id number]
--- NOTE | 2021-05-25 03:10 | Consultation ---
History of Present Illness - Reason for Consult Consult date: 05/25/21 acute renal failure, hyperkalemia - History of Present Illness History obtained from medical records as patient is intubated. Mr. Rosales is a 40 YO Male with Methamphetamine Dependence, Nicotine Dependence who presents to ED for evaluation. Pt was intubated and ambulatory support at time of evaluation and is unable to provide history. History taken by EMS staff, ED staff, as well as patient family. Per family, the patient was found down and unresponsive. EMS was notified by family members and upon arrival the patient was found to be in distress. Patient family reported that patient "overdosed on GHB". He was treated with intranasal Narcan without improvement in symptoms. In the ED, patient was found to be unresponsive and unable to protect his airway. He was intubated for airway protection. Poison control notification by ED staff physician requested prior to admission. Patient admitted to ICU and treated with supportive care. Past History Past Medical History: other (See HPI) Past Surgical History: No surgical history, Other (Reviewed) Social history: single. denies: smoking Family history: hypertension Medications and Allergies Allergies Allergy/AdvReac Type Severity Reaction Status Date / Time No Known Allergies Allergy Unverified 09/13/13 00:07 Home Medications Medication Instructions Recorded Confirmed Last Taken Type Unobtainable 09/13/13 09/13/13 Unknown History Active Meds: Active Medications Acetaminophen (Acetaminophen 650 Mg Rect Supp) 650 mg RI Q6H PRN PRN Reason: Pain MILD(1-3)/Fever >100.5/EPSTEIN Last Admin: 05/23/21 17:07 Dose: 650 mg Fentanyl (Fentanyl 100 Mcg/2 Ml Inj) 50 mcg IV Q10MIN PRN PRN Reason: ANALGESIA Last Admin: 05/24/21 22:38 Dose: 50 mcg Hydromorphone HCl (Hydromorphone 1 Mg/1 Ml Inj) 0.5 mg IV Q24H PRN PRN Reason: Pain , Severe (7-10) Sodium Chloride (Nacl 0.9% 1000 Ml) 1,000 mls @ 125 mls/hr IV DIRECT MARK Last Infusion: 05/24/21 18:04 Dose: Infused Midazolam HCl 100 mg/ Sodium (Chloride) 100 mls @ 1 mls/hr IV TITR MARK; Protocol Last Admin: 05/24/21 23:35 Dose: 5 mg/hr, 5 mls/hr Propofol (Diprivan 10 Mg/Ml) 1,000 mg in 100 mls @ 3.062 mls/hr IV TITR MARK; Protocol Last Titration: 05/24/21 03:05 Dose: 0 mcg/kg/min, 0 mls/hr Fentanyl Citrate (Fentanyl Drip Premix) 2,000 mcg in 100 mls @ 5.103 mls/hr IV TITR MARK; Protocol Last Admin: 05/24/21 18:23 Dose: 1 mcg/kg/hr, 5.103 mls/hr Dexmedetomidine HCl 400 mcg/ (Sodium Chloride) 104 mls @ 5.307 mls/hr IV TITRATE MARK; Protocol Last Admin: 05/24/21 23:05 Dose: 0.2 mcg/kg/hr, 5.307 mls/hr NORepinephrine/NS 8 MG-250 ML (Norepinephrine/Ns 8 Mg-250 Ml (Double Conc)) 8 mg in 250 mls @ 3.75 mls/hr IV TITRATE MARK; Protocol Last Admin: 05/24/21 23:05 Dose: 20 mcg/min, 37.5 mls/hr Morphine Sulfate (Morphine 2 Mg/1 Ml Inj) 2 mg IV Q24H PRN PRN Reason: Pain, Moderate (4-6) Ondansetron HCl (Ondansetron 4 Mg/2 Ml Inj) 4 mg IV Q8H PRN PRN Reason: Nausea And Vomiting Sodium Chloride (Sodium Chloride 0.9% 10 Ml Flush Syringe) 10 ml IV BID [facility] Last Admin: 05/24/21 23:24 Dose: Not Given Sodium Chloride (Sodium Chloride 0.9% 10 Ml Flush Syringe) 10 ml IV PRN PRN PRN Reason: LINE FLUSH Review of Systems ROS unobtainable: due to endotracheal tube Exam - Vital Signs Vital signs: Vital Signs Pulse Resp BP Pulse Ox 84 27 H 130/96 87 05/23/21 09:22 05/23/21 09:22 05/23/21 09:22 05/23/21 09:22 - General Appearance General appearance: well-developed, well-nourished EENT: ATNC, other (ETT in place) Respiratory: Other (coarse breath sounds) Heart: regular, S1S2 Gastrointestinal: Present: normal Integumentary: no rash, warm and dry Musculoskeletal: Present: other (intraosseous access to RLE) Results - Lab Results 05/24/21 05:14 05/24/21 19:45 Most recent lab results ABG pH 7.241 (7.320-7.450) L 05/24/21 03:44 ABG pCO2 38.4 mm Hg 05/23/21 Unknown ABG pO2 52.2 mm Hg (80.0-90.0) L 05/23/21 Unknown ABG HCO3 21.2 mmol/L (20.0-26.0) 05/23/21 Unknown ABG O2 Saturation 95.8 (0-100) 05/24/21 03:44 Calcium 8.7 mg/dL (8.4-10.2) 05/24/21 19:45 Assessment and Plan Impression: * Acute kidney injury secondary to ATN * Acute hypoxic respiratory failure * Acute encephalopathy * Hypotension * Drug overdose * Hyperkalemia Plan: * No acute need for HD presently. Close monitoring of renal function * Medical management of electrolytes - note order for kayexelate * Vent management per pulm * Pressors prn - maintain MAP>65; Levophed currently infusing * Dose medications for renal function * Strict I/O * Avoid potential nephrotoxins * Repeat BMP this afternoon
[2021-05-25 05:20] LABS: Hemoglobin 13.5 gm/dl (11.8-15.2); Mean Corpuscular HGB Conc 31 % (32-34); Mean Corpuscular Volume 92 fl (84-94); Platelet Count 218 K/mm3 (140-440); Red Blood Count 4.69 M/mm3 (3.65-5.03); Red Cell Distribution Width 15.5 % (13.2-15.2)
[2021-05-25 05:40] LABS: Calcium 8.5 mg/dL (8.4-10.2)
[2021-05-25 06:08] LABS: Total Cells Counted 100
[2021-05-25 06:09] LABS: Basophils % (Manual) 0 % (0.0-1.8); Eosinophils % (Manual) 0 % (0.0-4.3)
[2021-05-25 06:11] LABS: Macrocytosis Few
[2021-05-25 06:12] LABS: Platelet Estimate Consistent w Auto
[2021-05-25] MEDS: NORepinephrine/NS 8 MG-250 ML 8 MG/250 ML INFUS..BTL IV SCH ×2 (06:34→19:04)
--- NOTE | 2021-05-25 08:31 | Progress Note ---
Assessment and Plan Assessment and plan: Hospital Course to date: 05/25: Worsening interstitial infiltrates. unclear if this is a developing pneumonia from aspiration/volume overload. Empiric abx coverage. ECHO with bubbl e study ordered. Placed on iv abx. kidney function improving. Assessment and Plan: #Acute hypoxic respiratory failure - Intubated for airway protection. - AB.3/38.4/52./21 on admission (post intubation Abg) - severely hypoxemic despite intubation, concern for aspiration. - CXR: mild interstitial edema - Mechanical ventilation, management per [facility] - SAT/SBT trials daily - cxr/abg q48hr, trend p/f ratio - PCC following #Acute toxic metabolic encephalopathy - Encephalopathic on arrival. multifactorial drug OD, analia. - tox screen positive for amphetamines - Supportive management: IVF, monitor electrolytes - daily SAT trials. #Acute kidney injury due to acute tubular necrosis - Cr: 3.5 on 03/24, baseline 0.9. suspect dehydration vs toxic exposure vs rhabdo - ordered UA and CK. - avoid nephrotoxic agents - IVF, monitor volume status daily. - strict I/O, christianson - consult nephrology #Bilateral Pneumonia - CXR institial infiltrates, possible aspiration - ABx: Vancomycin/Cefepime IV - order covid rt pcr & influneza antigen a/b #Sepsis POA - febrile, leukocytosis, source likely pulmonary - bcx, ucx, sputum cx - covid and flu testing - iv abx as above #Hyperkalemia - 6.3 on 03/24, s/p kionex, sodium bicarb, insulin, calcium gluconate - f/u repeat - nephrology consulted #Hypothermia - temp has normalized. #Rhabdomyolysis Patient has elevated protein and urine and elevated CK. We will continue IV fluids #Overdose by ingestion - amphetamines in tox screen - psych consulted #History of polysubstance abuse -Methamphetamine, nicotine #Advance care planning Disease education conducted, care plan discussed, diagnoses discussed, prognosis discussed, patient is full code, patient acknowledges understanding and agree with care plan, +30 minutes. The high probability of a clinically significant, sudden or life threatening deterioration of the [multi] system(s) required my full and direct attention, intervention and personal management. The aggregate critical care time was [60] minutes. This time is in addition to time spent performing reported procedures but includes the following: [x] Data Review and interpretation [x] Patient assessment and monitoring of vital signs [x] Documentation [x] Medication orders and management History Interval history: intubated and sedated Hospitalist Physical - Physical exam Narrative exam: Physical Exam: VITAL SIGNS: Reviewed. GENERAL: The patient appears normally developed, Vital signs as documented. Intubated and sedated HEAD: No signs of head trauma. EYES: Pupils are equal. Extraocular motions intact. EARS: Hearing grossly intact. MOUTH: Oropharynx is normal. NECK: No adenopathy, no JVD. CHEST: Chest with clear breath sounds bilaterally. No wheezes, rales, or rhonchi. CARDIAC: Regular rate and rhythm. S1 and S2, without murmurs, gallops, or rubs. VASCULAR: No Edema. Peripheral pulses normal and equal in all extremities. ABDOMEN: Soft, non tender and non distended. No rebound or guarding, and no masses palpated. Bowel Sounds normal. MUSCULOSKELETAL: Good range of motion of all major joints. Extremities without clubbing, cyanosis or edema. NEUROLOGIC EXAM: Alert and oriented x 4. no focal sensory or strength deficits. PSYCHIATRIC: Mood normal. SKIN: detail exam as documented in skin assessment - Constitutional Vitals: Temp Pulse Resp BP Pulse Ox 98.4 F 107 H 30 H 112/71 100 05/24/21 03:16 05/25/21 08:00 05/25/21 08:00 05/25/21 08:00 05/25/21 08:00 General appearance: Present: mild distress, obese HEART Score - HEART Score Troponin: Troponin T < 0.010 ng/mL (0.00-0.029) 05/23/21 09:38 Results - Labs CBC & Chem 7: 05/25/21 04:23 05/25/21 04:23 Labs: Laboratory Last Values WBC 20.1 K/mm3 (4.5-11.0) H 05/25/21 04:23 RBC 4.69 M/mm3 (3.65-5.03) 05/25/21 04:23 Hgb 13.5 gm/dl (11.8-15.2) 05/25/21 04:23 Hct 43.0 % (35.5-45.6) 05/25/21 04:23 MCV 92 fl (84-94) 05/25/21 04:23 MCH 29 pg (28-32) 05/25/21 04:23 MCHC 31 % (32-34) L 05/25/21 04:23 RDW 15.5 % (13.2-15.2) H 05/25/21 04:23 Plt Count 218 K/mm3 (140-440) 05/25/21 04:23 Lymph % (Auto) 27.1 % (13.4-35.0) 05/23/21 09:38 Yancey % (Auto) 5.5 % (0.0-7.3) 05/23/21 09:38 Eos % (Auto) 0.3 % (0.0-4.3) 05/23/21 09:38 Baso % (Auto) 1.2 % (0.0-1.8) 05/23/21 09:38 Lymph # (Auto) 2.5 K/mm3 (1.2-5.4) 05/23/21 09:38 Yancey # (Auto) 0.5 K/mm3 (0.0-0.8) 05/23/21 09:38 Eos # (Auto) 0.0 K/mm3 (0.0-0.4) 05/23/21 09:38 Baso # (Auto) 0.1 K/mm3 (0.0-0.1) 05/23/21 09:38 Add Manual Diff Complete 05/25/21 04:23 Total Counted 100 05/25/21 04:23 Seg Neutrophils % Iron Cutter 05/25/21 04:23 Seg Neuts % (Manual) 94.0 % (40.0-70.0) H 05/25/21 04:23 Band Neutrophils % 0 % 05/25/21 04:23 Lymphocytes % (Manual) 5.0 % (13.4-35.0) L 05/25/21 04:23 Reactive Lymphs % (Man) 0 % 05/25/21 04:23 Monocytes % (Manual) 1.0 % (0.0-7.3) 05/25/21 04:23 Eosinophils % (Manual) 0 % (0.0-4.3) 05/25/21 04:23 Basophils % (Manual) 0 % (0.0-1.8) 05/25/21 04:23 Metamyelocytes % 0 % 05/25/21 04:23 Myelocytes % 0 % 05/25/21 04:23 Promyelocytes % 0 % 05/25/21 04:23 Blast Cells % 0 % 05/25/21 04:23 Nucleated RBC % Not Reportable 05/25/21 04:23 Seg Neutrophils # 6.1 K/mm3 (1.8-7.7) 05/23/21 09:38 Seg Neutrophils # Man 18.9 K/mm3 (1.8-7.7) H 05/25/21 04:23 Band Neutrophils # 0.0 K/mm3 05/25/21 04:23 Lymphocytes # (Manual) 1.0 K/mm3 (1.2-5.4) L 05/25/21 04:23 Abs React Lymphs (Man) 0.0 K/mm3 05/25/21 04:23 Monocytes # (Manual) 0.2 K/mm3 (0.0-0.8) 05/25/21 04:23 Eosinophils # (Manual) 0.0 K/mm3 (0.0-0.4) 05/25/21 04:23 Basophils # (Manual) 0.0 K/mm3 (0.0-0.1) 05/25/21 04:23 Metamyelocytes # 0.0 K/mm3 05/25/21 04:23 Myelocytes # 0.0 K/mm3 05/25/21 04:23 Promyelocytes # 0.0 K/mm3 05/25/21 04:23 Blast Cells # 0.0 K/mm3 05/25/21 04:23 WBC Morphology Not Reportable 05/25/21 04:23 Hypersegmented Neuts Not Reportable 05/25/21 04:23 Hyposegmented Neuts Not Reportable 05/25/21 04:23 Hypogranular Neuts Not Reportable 05/25/21 04:23 Smudge Cells Not Reportable 05/25/21 04:23 Toxic Granulation Not Reportable 05/25/21 04:23 Toxic Vacuolation Not Reportable 05/25/21 04:23 Dohle Bodies Not Reportable 05/25/21 04:23 Pelger-Huet Anomaly Not Reportable 05/25/21 04:23 Glenn Rods Not Reportable 05/25/21 04:23 Platelet Estimate Consistent w auto 05/25/21 04:23 Clumped Platelets Not Reportable 05/25/21 04:23 Plt Clumps, EDTA Not Reportable 05/25/21 04:23 Large Platelets Not Reportable 05/25/21 04:23 Giant Platelets Not Reportable 05/25/21 04:23 Platelet Satelliting Not Reportable 05/25/21 04:23 Plt Morphology Comment Not Reportable 05/25/21 04:23 RBC Morphology Not Reportable 05/25/21 04:23 Dimorphic RBCs Not Reportable 05/25/21 04:23 Polychromasia Not Reportable 05/25/21 04:23 Hypochromasia Not Reportable 05/25/21 04:23 Poikilocytosis Not Reportable 05/25/21 04:23 Anisocytosis Not Reportable 05/25/21 04:23 Microcytosis Not Reportable 05/25/21 04:23 Macrocytosis Few 05/25/21 04:23 Spherocytes Not Reportable 05/25/21 04:23 Pappenheimer Bodies Not Reportable 05/25/21 04:23 Sickle Cells Not Reportable 05/25/21 04:23 Target Cells Not Reportable 05/25/21 04:23 Tear Drop Cells Not Reportable 05/25/21 04:23 Ovalocytes Not Reportable 05/25/21 04:23 Helmet Cells Not Reportable 05/25/21 04:23 [place]-Tok Bodies Not Reportable 05/25/21 04:23 Colton Rings Not Reportable 05/25/21 04:23 [place] Cells Not Reportable 05/25/21 04:23 Bite Cells Not Reportable 05/25/21 04:23 Crenated Cell Not Reportable 05/25/21 04:23 Elliptocytes Not Reportable 05/25/21 04:23 Acanthocytes (Spur) Not Reportable 05/25/21 04:23 Rouleaux Not Reportable 05/25/21 04:23 Hemoglobin C Crystals Not Reportable 05/25/21 04:23 Schistocytes Not Reportable 05/25/21 04:23 Malaria parasites Not Reportable 05/25/21 04:23 Frandy Bodies Not Reportable 05/25/21 04:23 Hem Pathologist Commnt No 05/25/21 04:23 ABG pH 7.241 (7.320-7.450) L 05/24/21 03:44 POC ABG pCO2 41.6 mmHg (32.0-48.0) 05/24/21 03:44 ABG pCO2 38.4 mm Hg 05/23/21 Unknown POC ABG pO2 87.6 mmHg (83-108) 05/24/21 03:44 ABG pO2 52.2 mm Hg (80.0-90.0) L 05/23/21 Unknown POC ABG HCO3 17.5 05/24/21 03:44 ABG HCO3 21.2 mmol/L (20.0-26.0) 05/23/21 Unknown ABG O2 Saturation 95.8 (0-100) 05/24/21 03:44 ABG O2 Content 17.4 (0.0-44) 05/23/21 Unknown POC ABG Base Excess -9.5 05/24/21 03:44 ABG Base Excess -3.7 mmol/L (-2.0-3.0) L 05/23/21 Unknown ABG Hemoglobin 16.6 (12.0-17.5) 05/24/21 03:44 ABG Oxyhemoglobin 94.8 (94-98) 05/24/21 03:44 ABG Carboxyhemoglobin 2.5 % (0.0-5.0) 05/23/21 Unknown ABG Methemoglobin 0.2 (0.0-1.5) 05/24/21 03:44 ABG Sodium 137.9 mmol/L (136.0-145.0) 05/24/21 03:44 ABG Potassium 5.6 mmol/L (3.40-4.50) H 05/24/21 03:44 ABG Chloride 105.0 mmol/L (98-107) 05/24/21 03:44 ABG Glucose 53 mg/dL (65-95) L 05/24/21 03:44 Oxyhemoglobin 81.1 % (95.0-99.0) L 05/23/21 Unknown Carboxyhemoglobin 0.8 (0.5-1.5) 05/24/21 03:44 FiO2 100 % 05/23/21 Unknown FiO2 % 100.0 05/24/21 03:44 Sodium 141 mmol/L (137-145) 05/25/21 04:23 Potassium 4.8 mmol/L (3.6-5.0) 05/25/21 04:23 Chloride 111.4 mmol/L (98-107) H 05/25/21 04:23 Carbon Dioxide 18 mmol/L (22-30) L 05/25/21 04:23 Anion Gap 16 mmol/L 05/25/21 04:23 BUN 33 mg/dL (9-20) H 05/25/21 04:23 Creatinine 1.9 mg/dL (0.8-1.3) H 05/25/21 04:23 Estimated GFR 48 ml/min 05/25/21 04:23 BUN/Creatinine Ratio 17 % 05/25/21 04:23 Glucose 121 mg/dL (75-100) H 05/25/21 04:23 POC Glucose 97 mg/dL (70-105) 05/24/21 09:54 Calcium 8.5 mg/dL (8.4-10.2) 05/25/21 04:23 Phosphorus 3.30 mg/dL (2.5-4.5) 05/25/21 04:23 Magnesium 1.80 mg/dL (1.7-2.3) 05/25/21 04:23 Total Bilirubin 1.90 mg/dL (0.1-1.2) H 05/24/21 05:14 AST 40 units/L (5-40) 05/24/21 05:14 ALT 24 units/L (7-56) 05/24/21 05:14 Alkaline Phosphatase 76 units/L (35-129) 05/24/21 05:14 Total Creatine Kinase 556 units/L (55-170) H 05/24/21 09:35 Troponin T < 0.010 ng/mL (0.00-0.029) 05/23/21 09:38 NT-Pro-B Natriuret Pep 6058 pg/mL (0-450) H 05/23/21 09:38 Total Protein 4.9 g/dL (6.3-8.2) L D 05/24/21 05:14 Albumin 2.8 g/dL (3.9-5) L 05/24/21 05:14 Albumin/Globulin Ratio 1.3 % 05/24/21 05:14 Arterial Blood Glucose 53 mg/dL (65-95) L 05/24/21 03:44 Arterial Blood Ionized Calcium 4.6 mg/dL (4.6-5.3) 05/24/21 03:44 Urine Color Sherri (Yellow) 05/24/21 Unknown Urine Turbidity Cloudy (Clear) 05/24/21 Unknown Urine pH 5.0 (5.0-7.0) 05/24/21 Unknown Ur Specific [place] 1.015 (1.003-1.030) 05/24/21 Unknown Urine Protein 100 mg/dl mg/dL (Negative) 05/24/21 Unknown Urine Glucose (UA) Neg mg/dL (Negative) 05/24/21 Unknown Urine Ketones Neg mg/dL (Negative) 05/24/21 Unknown Urine Blood Lg (Negative) 05/24/21 Unknown Urine Nitrite Neg (Negative) 05/24/21 Unknown Urine Bilirubin Neg (Negative) 05/24/21 Unknown Urine Urobilinogen 4.0 mg/dL (<2.0) 05/24/21 Unknown Ur Leukocyte Esterase Mod (Negative) 05/24/21 Unknown Urine WBC (Auto) 78.0 /HPF (0.0-6.0) H 05/24/21 Unknown Urine RBC (Auto) 86.0 /HPF (0.0-6.0) 05/24/21 Unknown U Epithel Cells (Auto) 2.0 /HPF (0-13.0) 05/24/21 Unknown Urine Mucus Few /HPF 05/24/21 Unknown Urine Yeast (Budding) 1+ /HPF 05/24/21 Unknown Salicylates < 0.3 mg/dL (2.8-20.0) L 05/23/21 09:38 Urine Opiates Screen Negative 05/23/21 09:41 Urine Methadone Screen Negative 05/23/21 09:41 Acetaminophen 5.0 ug/mL (10.0-30.0) L 05/23/21 09:38 Ur Barbiturates Screen Negative 05/23/21 09:41 Ur Phencyclidine Scrn Negative 05/23/21 09:41 Ur Amphetamines Screen Positive 05/23/21 09:41 U Benzodiazepines Scrn Negative 05/23/21 09:41 Urine Cocaine Screen Negative 05/23/21 09:41 U Marijuana (THC) Screen Negative 05/23/21 09:41 Drugs of Abuse Note Disclamer 05/23/21 09:41 Active Medications - Current Medications Current Medications: Generic Name Dose Route Start Last Admin Trade Name Freq PRN Reason Stop Dose Admin Acetaminophen 650 mg 05/23/21 11:43 05/23/21 17:07 Acetaminophen 650 Mg Rect Supp [place] 650 mg Q6H PRN Administration Pain MILD(1-3)/Fever >100.5/EPSTEIN Fentanyl 50 mcg 05/24/21 00:44 05/24/21 22:38 Fentanyl 100 Mcg/2 Ml Inj IV 50 mcg Q10MIN PRN Administration ANALGESIA Hydromorphone HCl 0.5 mg 05/23/21 11:43 Hydromorphone 1 Mg/1 Ml Inj IV Q24H PRN Pain , Severe (7-10) Sodium Chloride 1,000 mls @ 125 mls/hr 05/23/21 14:00 05/24/21 18:04 Nacl 0.9% 1000 Ml IV Infused DIRECT MARK Infusion Midazolam HCl 100 mg/ Sodium 100 mls @ 1 mls/hr 05/23/21 22:22 05/24/21 23:35 Chloride IV 5 mg/hr TITR MARK 5 mls/hr Administration Protocol 1 MG/HR Propofol 1,000 mg in 100 mls @ 3.062 mls/hr 05/24/21 01:00 05/24/21 03:05 Diprivan 10 Mg/Ml IV 0 mcg/kg/min TITR MARK 0 mls/hr Titration Protocol 5 MCG/KG/MIN Fentanyl Citrate 2,000 mcg in 100 mls @ 5.103 mls/hr 05/24/21 01:00 05/24/21 18:23 Fentanyl Drip Premix IV 1 mcg/kg/hr TITR MARK 5.103 mls/hr Administration Protocol 1 MCG/KG/HR Dexmedetomidine HCl 400 mcg/ 104 mls @ 5.307 mls/hr 05/24/21 05:00 05/24/21 23:05 Sodium Chloride IV 0.2 mcg/kg/hr TITRATE MARK 5.307 mls/hr Administration Protocol 0.2 MCG/KG/HR NORepinephrine/NS 8 MG-250 ML 8 mg in 250 mls @ 3.75 mls/hr 05/24/21 11:00 05/25/21 06:34 Norepinephrine/Ns 8 Mg-250 Ml (Double Conc) IV 20 mcg/min TITRATE MARK 37.5 mls/hr Administration Protocol 2 MCG/MIN Morphine Sulfate 2 mg 05/23/21 11:43 Morphine 2 Mg/1 Ml Inj IV Q24H PRN Pain, Moderate (4-6) Ondansetron HCl 4 mg 05/23/21 11:43 Ondansetron 4 Mg/2 Ml Inj IV Q8H PRN Nausea And Vomiting Sodium Chloride 10 ml 05/23/21 22:00 05/24/21 23:24 Sodium Chloride 0.9% 10 Ml Flush Syringe IV Not Given BID MARK Sodium Chloride 10 ml 05/23/21 11:43 Sodium Chloride 0.9% 10 Ml Flush Syringe IV PRN PRN LINE FLUSH
[2021-05-25] MEDS ORDERED: VANCOMYCIN PHARMACY TO DOSE IV SCH (09:00)
[2021-05-25] MEDS ORDERED: CEFEPIME/NS 1 GM/100 ML 1 GM/100 ML BAG IV SCH ×2 (09:00→10:00)
--- NOTE | 2021-05-25 09:09 | Progress Note ---
Assessment and Plan Impression: * Nonoliguric cute kidney injury secondary to ATN * Acute hypoxic respiratory failure * Acute encephalopathy * Hypotension * Drug overdose * Hyperkalemia Plan: * Renal function has improved. No acute need for HD presently. * Continue close monitoring of renal function * Medical management of electrolytes - kayexelate prn * Vent management per pulm * Pressors prn - maintain MAP>65; * Dose medications for renal function * Strict I/O - maintain christianson catheter in critically ill patient * Avoid potential nephrotoxins Subjective Date of service: 05/25/21 Interval history: No acute events overnight. Objective - Vital Signs Vital signs: Vital Signs - 12hr 05/24/21 05/24/21 05/24/21 21:16 21:30 21:46 Pulse Rate 106 H 106 H 109 H Respiratory 15 16 16 Rate Blood Pressure 96/73 100/65 106/69 O2 Sat by Pulse 97 96 95 Oximetry 05/24/21 05/24/21 05/24/21 22:00 22:16 22:30 Pulse Rate 107 H 107 H 124 H Respiratory 15 16 40 H Rate Blood Pressure 102/68 103/66 117/90 O2 Sat by Pulse 97 98 100 Oximetry 05/24/21 05/24/21 05/24/21 22:46 23:00 23:16 Pulse Rate 121 H 119 H 110 H Respiratory 16 9 L 19 Rate Blood Pressure 111/56 82/45 81/51 O2 Sat by Pulse 97 97 100 Oximetry 05/24/21 05/24/21 05/25/21 23:30 23:46 00:00 Pulse Rate 108 H 106 H 108 H Respiratory 20 27 H 30 H Rate Blood Pressure 97/60 97/63 103/68 O2 Sat by Pulse 100 100 100 Oximetry 05/25/21 05/25/21 05/25/21 00:16 00:30 00:46 Pulse Rate 107 H 107 H 109 H Respiratory 30 H 30 H 30 H Rate Blood Pressure 103/68 104/67 106/70 O2 Sat by Pulse 100 100 100 Oximetry 05/25/21 05/25/21 05/25/21 01:00 01:16 01:30 Pulse Rate 110 H 109 H 110 H Respiratory 11 L 12 12 Rate Blood Pressure 103/70 108/70 109/72 O2 Sat by Pulse 100 100 100 Oximetry 05/25/21 05/25/21 05/25/21 01:35 01:46 02:00 Pulse Rate 109 H 110 H 110 H Respiratory 27 H 20 Rate Blood Pressure 108/70 105/69 106/69 O2 Sat by Pulse 100 100 100 Oximetry 05/25/21 05/25/21 05/25/21 02:16 02:30 02:46 Pulse Rate 111 H 110 H 110 H Respiratory 23 22 18 Rate Blood Pressure 101/70 109/68 109/69 O2 Sat by Pulse 100 100 100 Oximetry 05/25/21 05/25/21 05/25/21 03:00 03:16 03:30 Pulse Rate 111 H 112 H 110 H Respiratory 15 18 26 H Rate Blood Pressure 101/71 109/71 107/72 O2 Sat by Pulse 100 100 100 Oximetry 05/25/21 05/25/21 05/25/21 03:46 04:00 04:16 Pulse Rate 110 H 110 H 111 H Respiratory 21 26 H 22 Rate Blood Pressure 117/69 108/60 105/73 O2 Sat by Pulse 100 100 100 Oximetry 05/25/21 05/25/21 05/25/21 04:30 04:46 05:00 Pulse Rate 110 H 110 H 110 H Respiratory 30 H 30 H 30 H Rate Blood Pressure 108/72 109/73 112/72 O2 Sat by Pulse 100 100 99 Oximetry 05/25/21 05/25/21 05/25/21 05:07 05:16 05:30 Pulse Rate 111 H 114 H 108 H Respiratory 30 H 30 H Rate Blood Pressure 109/73 91/51 96/68 O2 Sat by Pulse 100 99 100 Oximetry 05/25/21 05/25/21 05/25/21 05:46 06:00 06:16 Pulse Rate 109 H 107 H 106 H Respiratory 30 H 30 H 30 H Rate Blood Pressure 112/72 110/70 99/55 O2 Sat by Pulse 100 100 100 Oximetry 05/25/21 05/25/21 05/25/21 06:30 06:46 07:00 Pulse Rate 110 H 107 H 108 H Respiratory 30 H 30 H 30 H Rate Blood Pressure 91/57 112/72 116/75 O2 Sat by Pulse 99 100 100 Oximetry 05/25/21 05/25/21 05/25/21 07:16 07:30 07:46 Pulse Rate 107 H 107 H 108 H Respiratory 30 H 30 H 30 H Rate Blood Pressure 117/74 118/73 111/73 O2 Sat by Pulse 100 100 100 Oximetry 05/25/21 08:00 Pulse Rate 107 H Respiratory 30 H Rate Blood Pressure 112/71 O2 Sat by Pulse 100 Oximetry - General Appearance General appearance: well-developed, well-nourished EENT: ATNC, other (ETT in place) Respiratory: Present: Other (coarse breath sounds) Cardiology: regular, S1S2 Integumentary: no rash, warm and dry Psychiatric: cooperative - Lab 05/25/21 04:23 05/25/21 04:23 Most recent lab results ABG pH 7.241 (7.320-7.450) L 05/24/21 03:44 ABG pCO2 38.4 mm Hg 05/23/21 Unknown ABG pO2 52.2 mm Hg (80.0-90.0) L 05/23/21 Unknown ABG HCO3 21.2 mmol/L (20.0-26.0) 05/23/21 Unknown ABG O2 Saturation 95.8 (0-100) 05/24/21 03:44 Calcium 8.5 mg/dL (8.4-10.2) 05/25/21 04:23 Phosphorus 3.30 mg/dL (2.5-4.5) 05/25/21 04:23 Magnesium 1.80 mg/dL (1.7-2.3) 05/25/21 04:23 Medications & Allergies - Medications Allergies/Adverse Reactions: Allergies No Known Allergies Allergy (Unverified 09/13/13 00:07) Home Medications: Home Medications Medication Instructions Recorded Confirmed Last Taken Type Unobtainable 09/13/13 09/13/13 Unknown History Active Medications: Generic Name Dose Route Start Last Admin Trade Name Freq PRN Reason Stop Dose Admin Acetaminophen 650 mg 05/23/21 11:43 05/23/21 17:07 Acetaminophen 650 Mg Rect Supp [place] 650 mg Q6H PRN Administration Pain MILD(1-3)/Fever >100.5/EPSTEIN Fentanyl 50 mcg 05/24/21 00:44 05/24/21 22:38 Fentanyl 100 Mcg/2 Ml Inj IV 50 mcg Q10MIN PRN Administration ANALGESIA Hydromorphone HCl 0.5 mg 05/23/21 11:43 Hydromorphone 1 Mg/1 Ml Inj IV Q24H PRN Pain , Severe (7-10) Sodium Chloride 1,000 mls @ 125 mls/hr 05/23/21 14:00 05/24/21 18:04 Nacl 0.9% 1000 Ml IV Infused DIRECT MARK Infusion Midazolam HCl 100 mg/ Sodium 100 mls @ 1 mls/hr 05/23/21 22:22 05/24/21 23:35 Chloride IV 5 mg/hr TITR MARK 5 mls/hr Administration Protocol 1 MG/HR Propofol 1,000 mg in 100 mls @ 3.062 mls/hr 05/24/21 01:00 05/24/21 03:05 Diprivan 10 Mg/Ml IV 0 mcg/kg/min TITR MARK 0 mls/hr Titration Protocol 5 MCG/KG/MIN Fentanyl Citrate 2,000 mcg in 100 mls @ 5.103 mls/hr 05/24/21 01:00 05/24/21 18:23 Fentanyl Drip Premix IV 1 mcg/kg/hr TITR MARK 5.103 mls/hr Administration Protocol 1 MCG/KG/HR Dexmedetomidine HCl 400 mcg/ 104 mls @ 5.307 mls/hr 05/24/21 05:00 05/24/21 23:05 Sodium Chloride IV 0.2 mcg/kg/hr TITRATE MARK 5.307 mls/hr Administration Protocol 0.2 MCG/KG/HR NORepinephrine/NS 8 MG-250 ML 8 mg in 250 mls @ 3.75 mls/hr 05/24/21 11:00 05/25/21 06:34 Norepinephrine/Ns 8 Mg-250 Ml (Double Conc) IV 20 mcg/min TITRATE MARK 37.5 mls/hr Administration Protocol 2 MCG/MIN Vancomycin HCl 2,000 mg/ 540 mls @ 250 mls/hr 05/25/21 09:30 Sodium Chloride IV 05/25/21 11:39 ONCE ONE Vancomycin HCl 1,500 mg/ 530 mls @ 333.333 mls/hr 05/25/21 22:00 Sodium Chloride IV Q12H MARK Cefepime HCl 1 gm in 100 mls @ 200 mls/hr 05/25/21 10:00 Cefepime/Ns 1 Gm/100 Ml IV Q12H MARK Morphine Sulfate 2 mg 05/23/21 11:43 Morphine 2 Mg/1 Ml Inj IV Q24H PRN Pain, Moderate (4-6) Ondansetron HCl 4 mg 05/23/21 11:43 Ondansetron 4 Mg/2 Ml Inj IV Q8H PRN Nausea And Vomiting Sodium Chloride 10 ml 05/23/21 22:00 05/24/21 23:24 Sodium Chloride 0.9% 10 Ml Flush Syringe IV Not Given BID MARK Sodium Chloride 10 ml 05/23/21 11:43 Sodium Chloride 0.9% 10 Ml Flush Syringe IV PRN PRN LINE FLUSH
--- NOTE | 2021-05-25 09:29 | Electrocardiograph Report ---
[facility] Test Date: 2021-05-23 Test Time: 11:46:41 Pat Name: MATTHEW LAWSON Department: Room: [place] [address] Gender: M [employer] Software Engineer: KELLI : 1980 Requested By: CARA FELDMAN Order Number: [id number] Reading MD: Avel Medina Measurements Intervals [place] Rate: 112 P: 48 IL: 182 QRS: -61 QRSD: 101 T: 103 QT: 338 QTc: 463 Interpretive Statements Sinus tachycardia Multiple ventricular premature complexes Biatrial enlargement Left anterior fascicular block Left ventricular hypertrophy Anterior infarct, old Abnormal T, consider ischemia, lateral leads No previous ECG available for comparison Electronically Signed On 05-25-2021 9:28:16 EST by Avel Median
[2021-05-25] MEDS ORDERED: VANCOMYCIN 2,000 MG in SODIUM CHLORIDE 0.9% 500 ML 500 ML IV ONE (09:30)
[2021-05-25] MEDS: FAMOTIDINE 20 MG/2 ML INJ IV SCH ×2 (12:41→22:22)
[2021-05-25] MEDS: fentaNYL DRIP Premix 2,000 MCG/100 ML BAG IV SCH (12:42)
--- NOTE | 2021-05-25 13:07 | Progress Note ---
Subjective - Reason for Consult Consult date: 05/25/21 Reason for consult: Unintentional OD - Chief Complaint Chief complaint: The patient was seen. He is intubated and in restraints. The patient was brought in for OD of unknown substance in which he thought was vodka, according to documentation. Will delay starting psychiatric medications until the patient is more stable. No reports of agitation, restlessness or psychosis. REVIEW OF SYSTEMS Intubated MENTAL STATUS EXAMINATION Unable to assess Assessment (1) Unintentional OD Treatment Plan Will hold psych meds for now Medical: per primary Disposition: Do not recommend acute psychiatric inpatient treatment Will follow in case the patient requires med management Case staffed with Dr. Phillips. Mental Status Exam - Vital signs Last Vital Signs Temp 98.4 F 05/24/21 03:16 Pulse 103 H 05/25/21 11:20 Resp 30 H 05/25/21 08:00 BP 133/94 05/25/21 11:20 Pulse Ox 100 05/25/21 11:20
--- NOTE | 2021-05-25 16:17 | Progress Note ---
Assessment and Plan 40 y/o male with suspected overdose and metabolic acidosis 05/25/21: follow up echo. Spoke with RT about ABG. States will be in system w ithin the hour. Still pressors but on Precedex, Versed and Fent. needs to be COVID tested. BNP was >6k. Unable to diurese right now given pressor requirements but need to follow up echo. need to get patient upstairs as soon as possible. Spoke with charge nurse and they are working on this. 1. CXR shows cardiomegaly with some bibasilar changes. Could be fluid. Suggest swabbing for COVID. Check BNP and obtain 2D echo given heart size. 2. Minimal sedation to assess mental status 3. Wean pressors for MAPS >60 4. Follow up renal recs 5. No ABG prior to intubation. Echo should be a bubble study given degree of hypoxemia seen on ABG CCT 31 minutes. Subjective Date of service: 05/25/21 Interval history: No gas drawn this am. On 5 of versed and 1 of fent. Renal function improves. Appears to have UTI Objective Vital Signs - 12hr 05/25/21 05/25/21 05/25/21 04:16 04:30 04:46 Pulse Rate 111 H 110 H 110 H Respiratory 22 30 H 30 H Rate Blood Pressure 105/73 108/72 109/73 O2 Sat by Pulse 100 100 100 Oximetry 05/25/21 05/25/21 05/25/21 05:00 05:07 05:16 Pulse Rate 110 H 111 H 114 H Respiratory 30 H 30 H Rate Blood Pressure 112/72 109/73 91/51 O2 Sat by Pulse 99 100 99 Oximetry 05/25/21 05/25/21 05/25/21 05:30 05:46 06:00 Pulse Rate 108 H 109 H 107 H Respiratory 30 H 30 H 30 H Rate Blood Pressure 96/68 112/72 110/70 O2 Sat by Pulse 100 100 100 Oximetry 05/25/21 05/25/21 05/25/21 06:16 06:30 06:46 Pulse Rate 106 H 110 H 107 H Respiratory 30 H 30 H 30 H Rate Blood Pressure 99/55 91/57 112/72 O2 Sat by Pulse 100 99 100 Oximetry 05/25/21 05/25/21 05/25/21 07:00 07:16 07:30 Pulse Rate 108 H 107 H 107 H Respiratory 30 H 30 H 30 H Rate Blood Pressure 116/75 117/74 118/73 O2 Sat by Pulse 100 100 100 Oximetry 05/25/21 05/25/21 05/25/21 07:46 08:00 08:16 Pulse Rate 108 H 107 H 107 H Respiratory 30 H 30 H 30 H Rate Blood Pressure 111/73 112/71 114/73 O2 Sat by Pulse 100 100 100 Oximetry 05/25/21 05/25/21 05/25/21 08:30 08:46 09:00 Pulse Rate 106 H 106 H 107 H Respiratory 30 H 30 H 30 H Rate Blood Pressure 112/72 111/71 114/72 O2 Sat by Pulse 100 100 100 Oximetry 05/25/21 05/25/21 05/25/21 09:16 09:17 09:30 Pulse Rate 107 H 106 H 106 H Respiratory 30 H 30 H Rate Blood Pressure 113/71 113/71 115/71 O2 Sat by Pulse 100 100 100 Oximetry 05/25/21 05/25/21 05/25/21 09:46 10:00 10:16 Pulse Rate 105 H 107 H 108 H Respiratory 30 H 30 H 30 H Rate Blood Pressure 110/72 111/71 105/66 O2 Sat by Pulse 100 100 Oximetry 05/25/21 05/25/21 05/25/21 10:30 10:46 11:00 Pulse Rate 109 H 109 H 104 H Respiratory 30 H 30 H 30 H Rate Blood Pressure 89/48 82/50 80/47 O2 Sat by Pulse Oximetry 05/25/21 05/25/21 05/25/21 11:16 11:20 11:30 Pulse Rate 103 H 103 H 112 H Respiratory 30 H 30 H Rate Blood Pressure 133/94 133/94 143/100 O2 Sat by Pulse 100 Oximetry 05/25/21 05/25/21 05/25/21 11:46 12:00 12:16 Pulse Rate 117 H 112 H 110 H Respiratory 20 16 30 H Rate Blood Pressure 130/90 82/46 88/51 O2 Sat by Pulse Oximetry 05/25/21 05/25/21 05/25/21 12:30 12:46 13:00 Pulse Rate 111 H 111 H 109 H Respiratory 30 H 19 21 Rate Blood Pressure 106/72 104/65 100/56 O2 Sat by Pulse Oximetry 05/25/21 13:16 Pulse Rate 106 H Respiratory 30 H Rate Blood Pressure 106/62 O2 Sat by Pulse Oximetry CBC and BMP: 05/25/21 04:23 05/25/21 04:23 ABG, PT/INR, D-dimer: ABG ABG pH 7.241 (7.320-7.450) L 05/24/21 03:44 POC ABG pCO2 41.6 mmHg (32.0-48.0) 05/24/21 03:44 ABG pCO2 38.4 mm Hg 05/23/21 Unknown POC ABG pO2 87.6 mmHg (83-108) 05/24/21 03:44 ABG pO2 52.2 mm Hg (80.0-90.0) L 05/23/21 Unknown POC ABG HCO3 17.5 05/24/21 03:44 ABG O2 Saturation 95.8 (0-100) 05/24/21 03:44 Abnormal lab findings: Abnormal Labs 05/23/21 05/23/21 05/23/21 05:55 09:38 09:38 WBC RBC 5.09 H Hct 46.2 H MCHC RDW Seg Neuts % (Manual) Lymphocytes % (Manual) Seg Neutrophils # Man Lymphocytes # (Manual) ABG pH 7.265 L ABG pO2 ABG O2 Saturation 94.6 L ABG Base Excess -4.5 L ABG Potassium ABG Glucose Oxyhemoglobin 92.3 L Potassium Chloride Carbon Dioxide 20 L BUN Creatinine Glucose 147 H Lactic Acid Total Bilirubin Total Creatine Kinase NT-Pro-B Natriuret Pep Total Protein Albumin 3.6 L Arterial Blood Glucose Urine WBC (Auto) Salicylates Acetaminophen 05/23/21 05/23/21 05/23/21 09:38 09:38 09:38 WBC RBC Hct MCHC RDW Seg Neuts % (Manual) Lymphocytes % (Manual) Seg Neutrophils # Man Lymphocytes # (Manual) ABG pH ABG pO2 ABG O2 Saturation ABG Base Excess ABG Potassium ABG Glucose Oxyhemoglobin Potassium Chloride Carbon Dioxide BUN Creatinine Glucose Lactic Acid Total Bilirubin Total Creatine Kinase NT-Pro-B Natriuret Pep 6058 H Total Protein Albumin Arterial Blood Glucose Urine WBC (Auto) Salicylates < 0.3 L Acetaminophen 5.0 L 05/23/21 05/23/21 05/24/21 12:49 Unknown 03:44 WBC RBC Hct MCHC RDW Seg Neuts % (Manual) Lymphocytes % (Manual) Seg Neutrophils # Man Lymphocytes # (Manual) ABG pH 7.208 L 7.241 L ABG pO2 52.2 L ABG O2 Saturation 93.5 L 83.7 L ABG Base Excess -6.7 L -3.7 L ABG Potassium 5.6 H ABG Glucose 53 L Oxyhemoglobin 91.1 L 81.1 L Potassium Chloride Carbon Dioxide BUN Creatinine Glucose Lactic Acid Total Bilirubin Total Creatine Kinase NT-Pro-B Natriuret Pep Total Protein Albumin Arterial Blood Glucose 53 L Urine WBC (Auto) Salicylates Acetaminophen 05/24/21 05/24/21 05/24/21 05:14 05:14 09:35 WBC 23.3 H RBC 5.23 H Hct 47.3 H MCHC RDW 15.3 H Seg Neuts % (Manual) 12.0 L Lymphocytes % (Manual) 3.0 L Seg Neutrophils # Man Lymphocytes # (Manual) 0.7 L ABG pH ABG pO2 ABG O2 Saturation ABG Base Excess ABG Potassium ABG Glucose Oxyhemoglobin Potassium 6.3 H* D Chloride 107.3 H Carbon Dioxide 20 L BUN 33 H Creatinine 3.5 H D Glucose 56 L Lactic Acid Total Bilirubin 1.90 H Total Creatine Kinase 556 H NT-Pro-B Natriuret Pep Total Protein 4.9 L D Albumin 2.8 L Arterial Blood Glucose Urine WBC (Auto) Salicylates Acetaminophen 05/24/21 05/24/21 05/25/21 19:45 Unknown 04:23 WBC 20.1 H RBC Hct MCHC 31 L RDW 15.5 H Seg Neuts % (Manual) 94.0 H Lymphocytes % (Manual) 5.0 L Seg Neutrophils # Man 18.9 H Lymphocytes # (Manual) 1.0 L ABG pH ABG pO2 ABG O2 Saturation ABG Base Excess ABG Potassium ABG Glucose Oxyhemoglobin Potassium 5.7 H Chloride 108.9 H Carbon Dioxide 21 L BUN 36 H Creatinine 2.6 H Glucose 108 H Lactic Acid Total Bilirubin Total Creatine Kinase NT-Pro-B Natriuret Pep Total Protein Albumin Arterial Blood Glucose Urine WBC (Auto) 78.0 H Salicylates Acetaminophen 05/25/21 05/25/21 05/25/21 04:23 09:14 11:46 WBC RBC Hct MCHC RDW Seg Neuts % (Manual) Lymphocytes % (Manual) Seg Neutrophils # Man Lymphocytes # (Manual) ABG pH ABG pO2 ABG O2 Saturation ABG Base Excess ABG Potassium ABG Glucose Oxyhemoglobin Potassium Chloride 111.4 H Carbon Dioxide 18 L BUN 33 H Creatinine 1.9 H Glucose 121 H Lactic Acid 2.40 H* 2.60 H* Total Bilirubin Total Creatine Kinase NT-Pro-B Natriuret Pep Total Protein Albumin Arterial Blood Glucose Urine WBC (Auto) Salicylates Acetaminophen
[2021-05-25 18:24] LABS: ABG Base Excess -2.7 mmol/L (-2.0-3.0); ABG HCO3 22.1 mmol/L (20.0-26.0); ABG Methemoglobin 0.6 % (0.0-1.5); ABG Oxygen Saturation 99.3 % (95.0-99.0); ABG PCO2 38.4 mm Hg; ABG PH 7.378 pH Units (7.350-7.450); ABG PO2 208.2 mm Hg (80.0-90.0)
[2021-05-25] MEDS: MIDAZOLAM 100 MG in SODIUM CHLORIDE 0.9% 80 ML IV SCH (19:01)
[2021-05-25] MEDS: CEFEPIME/NS 1 GM/100 ML 1 GM/100 ML BAG IV SCH (22:15)
[2021-05-25] MEDS: VANCOMYCIN 1,500 MG in SODIUM CHLORIDE 0.9% 500 ML 500 ML IV SCH (22:25)
[2021-05-26] MEDS: fentaNYL 100 MCG/2 ML INJ IV PRN ×2 (02:21→02:32)
[2021-05-26] MEDS: CEFEPIME/NS 1 GM/100 ML 1 GM/100 ML BAG IV SCH ×2 (03:14→13:16)
[2021-05-26 04:05] LABS: ABG Base Excess -2.6 mmol/L (-2.0-3.0); ABG HCO3 21.8 mmol/L (20.0-26.0); ABG Methemoglobin 0.6 % (0.0-1.5); ABG Oxygen Saturation 97.2 % (95.0-99.0); ABG PCO2 36.6 mm Hg; ABG PH 7.393 pH Units (7.350-7.450); ABG PO2 89.4 mm Hg (80.0-90.0)
[2021-05-26] MEDS: fentaNYL DRIP Premix 2,000 MCG/100 ML BAG IV SCH ×2 (04:40→11:01)
[2021-05-26 06:27] LABS: Hematocrit 41.3 % (35.5-45.6); Hemoglobin 13.2 gm/dl (11.8-15.2); Mean Corpuscular HGB Conc 32 % (32-34); Mean Corpuscular Volume 91 fl (84-94); Platelet Count 197 K/mm3 (140-440); Red Blood Count 4.56 M/mm3 (3.65-5.03); Red Cell Distribution Width 15.3 % (13.2-15.2)
[2021-05-26 06:50] LABS: BUN/Creatinine Ratio 18; Blood Urea Nitrogen 23 mg/dL (9-20); Calcium 8.3 mg/dL (8.4-10.2); Hemolysis Index 5
[2021-05-26 07:41] LABS: Basophils % (Manual) 0 % (0.0-1.8); Eosinophils % (Manual) 0 % (0.0-4.3); Total Cells Counted 100
[2021-05-26 07:42] LABS: Platelet Estimate Consistent w Auto; RBC Morphology Normal; Toxic Granulation 1+
[2021-05-26] MEDS: NORepinephrine/NS 8 MG-250 ML 8 MG/250 ML INFUS..BTL IV SCH ×3 (09:34→21:19)
[2021-05-26] MEDS: SODIUM CHLORIDE 0.9% 1000 ML 1,000 ML IV SCH ×2 (09:35→13:16)
--- NOTE | 2021-05-26 09:56 | Progress Note ---
Assessment and Plan Impression: * Nonoliguric cute kidney injury secondary to ATN * Acute hypoxic respiratory failure --COVID 19 negative * Acute encephalopathy * Hypotension * Drug overdose * Hyperkalemia Plan: * Renal function has improved - SCr 1.3mg/dL. No acute need for HD presently. * Continue close monitoring of renal function * Medical management of electrolytes * Vent management per pulm * Pressors prn - maintain MAP>65; * Dose medications for renal function * Strict I/O - maintain christianson catheter in critically ill patient * Avoid potential nephrotoxins Subjective Date of service: 05/26/21 Interval history: Chart, vitals, labs reviewed. Patient remains intubated - ACVC rate 30, TV 500, FiO2 40, PEEP 6. Objective - Vital Signs Vital signs: Vital Signs - 12hr 05/25/21 05/25/21 05/26/21 22:00 23:00 00:00 Pulse Rate 105 H 108 H 105 H Respiratory 30 H 30 H 11 L Rate Blood Pressure 116/76 124/80 110/80 O2 Sat by Pulse 97 97 97 Oximetry 05/26/21 05/26/21 05/26/21 01:00 02:00 03:00 Pulse Rate 104 H 115 H 110 H Respiratory 16 30 H 30 H Rate Blood Pressure 121/78 84/58 87/45 O2 Sat by Pulse 97 94 97 Oximetry 05/26/21 05/26/21 05/26/21 04:06 06:00 07:00 Pulse Rate 105 H 114 H 110 H Respiratory 30 H 30 H Rate Blood Pressure 97/47 113/71 118/71 O2 Sat by Pulse 94 95 96 Oximetry 05/26/21 05/26/21 05/26/21 07:46 08:00 08:16 Pulse Rate 108 H 109 H 109 H Respiratory 30 H 30 H 30 H Rate Blood Pressure 126/73 120/73 120/72 O2 Sat by Pulse 97 97 96 Oximetry 05/26/21 05/26/21 05/26/21 08:30 08:46 09:00 Pulse Rate 109 H 107 H 104 H Respiratory 30 H 30 H 30 H Rate Blood Pressure 118/70 116/70 120/68 O2 Sat by Pulse 97 97 96 Oximetry 05/26/21 05/26/21 09:16 09:30 Pulse Rate 106 H 156 H Respiratory 30 H 30 H Rate Blood Pressure 121/72 113/51 O2 Sat by Pulse 97 98 Oximetry - General Appearance General appearance: well-developed, well-nourished EENT: ATNC, other (ETT in place) Respiratory: Present: Other (coarse BS) Cardiology: regular, S1S2 Gastrointestinal: normal, no tenderness, no distended Integumentary: no rash, warm and dry Psychiatric: cooperative - Lab 05/26/21 05:55 05/26/21 05:55 Most recent lab results ABG pH 7.393 pH Units (7.350-7.450) 05/26/21 03:16 ABG pCO2 36.6 mm Hg 05/26/21 03:16 ABG pO2 89.4 mm Hg (80.0-90.0) 05/26/21 03:16 ABG HCO3 21.8 mmol/L (20.0-26.0) 05/26/21 03:16 ABG O2 Saturation 97.2 % (95.0-99.0) 05/26/21 03:16 Calcium 8.3 mg/dL (8.4-10.2) L 05/26/21 05:55 Phosphorus 3.30 mg/dL (2.5-4.5) 05/25/21 04:23 Magnesium 1.80 mg/dL (1.7-2.3) 05/25/21 04:23 Medications & Allergies - Medications Allergies/Adverse Reactions: Allergies No Known Allergies Allergy (Verified 05/26/21 10:09) Home Medications: Home Medications Medication Instructions Recorded Confirmed Last Taken Type Unobtainable 09/13/13 09/13/13 Unknown History Active Medications: Generic Name Dose Route Start Last Admin Trade Name Freq PRN Reason Stop Dose Admin Acetaminophen 650 mg 05/23/21 11:43 05/23/21 17:07 Acetaminophen 650 Mg Rect Supp AK 650 mg Q6H PRN Administration Pain MILD(1-3)/Fever >100.5/EPSTEIN Famotidine 20 mg 05/25/21 11:00 05/25/21 22:22 Famotidine 20 Mg/2 Ml Inj IV 20 mg BID MARK Administration Hydromorphone HCl 0.5 mg 05/23/21 11:43 Hydromorphone 1 Mg/1 Ml Inj IV Q24H PRN Pain , Severe (7-10) Sodium Chloride 1,000 mls @ 125 mls/hr 05/23/21 14:00 05/26/21 09:35 Nacl 0.9% 1000 Ml IV 125 mls/hr DIRECT MARK Administration Midazolam HCl 100 mg/ Sodium 100 mls @ 1 mls/hr 05/23/21 22:22 05/26/21 08:21 Chloride IV 5 mg/hr TITR MARK 5 mls/hr Titration Protocol 1 MG/HR Propofol 1,000 mg in 100 mls @ 3.062 mls/hr 05/24/21 01:00 05/24/21 03:05 Diprivan 10 Mg/Ml IV 0 mcg/kg/min TITR MARK 0 mls/hr Titration Protocol 5 MCG/KG/MIN Fentanyl Citrate 2,000 mcg in 100 mls @ 5.103 mls/hr 05/24/21 01:00 05/26/21 09:37 Fentanyl Drip Premix IV 4 mcg/kg/hr TITR MARK 20.412 mls/hr Titration Protocol 1 MCG/KG/HR Dexmedetomidine HCl 400 mcg/ 104 mls @ 5.307 mls/hr 05/24/21 05:00 05/26/21 08:21 Sodium Chloride IV 0.2 mcg/kg/hr TITRATE MARK 5.307 mls/hr Titration Protocol 0.2 MCG/KG/HR NORepinephrine/NS 8 MG-250 ML 8 mg in 250 mls @ 3.75 mls/hr 05/24/21 11:00 05/26/21 09:34 Norepinephrine/Ns 8 Mg-250 Ml (Double Conc) IV 20 mcg/min TITRATE MARK 37.5 mls/hr Administration Protocol 2 MCG/MIN Vancomycin HCl 1,500 mg/ 530 mls @ 333.333 mls/hr 05/25/21 22:00 05/25/21 22: 25 Sodium Chloride IV 333.333 mls/hr Q12H MARK Administration Cefepime HCl 1 gm in 100 mls @ 200 mls/hr 05/25/21 19:00 05/26/21 03:14 Cefepime/Ns 1 Gm/100 Ml IV 200 mls/hr Q8H MARK Administration Morphine Sulfate 2 mg 05/23/21 11:43 Morphine 2 Mg/1 Ml Inj IV Q24H PRN Pain, Moderate (4-6) Ondansetron HCl 4 mg 05/23/21 11:43 Ondansetron 4 Mg/2 Ml Inj IV Q8H PRN Nausea And Vomiting Sodium Chloride 10 ml 05/23/21 22:00 05/25/21 22:20 Sodium Chloride 0.9% 10 Ml Flush Syringe IV 10 ml BID MARK Administration Sodium Chloride 10 ml 05/23/21 11:43 Sodium Chloride 0.9% 10 Ml Flush Syringe IV PRN PRN LINE FLUSH
[2021-05-26] MEDS: FAMOTIDINE 20 MG/2 ML INJ IV SCH ×2 (10:16→22:52)
--- NOTE | 2021-05-26 12:01 | Progress Note ---
Subjective - Reason for Consult Consult date: 05/26/21 Reason for consult: OD - Chief Complaint Chief complaint: The patient was seen. He is intubated and in restraints. He is sedated. No reports of the patient being combative, resistive to care. REVIEW OF SYSTEMS Intubated MENTAL STATUS EXAMINATION Unable to assess Assessment (1) Unintentional OD Treatment Plan Will hold psych meds Medical: per primary Disposition: Do not recommend acute psychiatric inpatient treatment Will sign off. If psych is needed in the near future, please reconsult. Thanks Case staffed with Dr. Phillips. Mental Status Exam - Vital signs Last Vital Signs Temp 98.4 F 05/24/21 03:16 Pulse 104 H 05/26/21 11:30 Resp 30 H 05/26/21 11:30 BP 109/59 05/26/21 11:30 Pulse Ox 97 05/26/21 11:30
[2021-05-26] MEDS: VANCOMYCIN 1,500 MG in SODIUM CHLORIDE 0.9% 500 ML 500 ML IV SCH (13:23)
--- NOTE | 2021-05-26 14:34 | Progress Note ---
Assessment and Plan 40 y/o male with suspected overdose and metabolic acidosis 05/26/21: Attempt extubation today once all sedation is off. 05/25/21: follow up echo. Spoke with RT about ABG. States will be in system within the hour. Still pressors but on Precedex, Versed and Fent. needs to be COVID tested. BNP was >6k. Unable to diurese right now given pressor requirements but need to follow up echo. need to get patient upstairs as soon as possible. Spoke with charge nurse and they are working on this. 1. CXR shows cardiomegaly with some bibasilar changes. Could be fluid. Suggest swabbing for COVID. Check BNP and obtain 2D echo given heart size. 2. Minimal sedation to assess mental status 3. Wean pressors for MAPS >60 4. Follow up renal recs 5. No ABG prior to intubation. Echo should be a bubble study given degree of hypoxemia seen on ABG CCT 31 minutes. Subjective Date of service: 05/26/21 Interval history: Remains sedated, on the vent but settings are minimal ABG is good. Objective Vital Signs - 12hr 05/26/21 05/26/21 05/26/21 03:00 04:06 06:00 Pulse Rate 110 H 105 H 114 H Respiratory 30 H 30 H Rate Blood Pressure 87/45 97/47 113/71 O2 Sat by Pulse 97 94 95 Oximetry 05/26/21 05/26/21 05/26/21 07:00 07:46 08:00 Pulse Rate 110 H 108 H 155 H Respiratory 30 H 30 H 30 H Rate Blood Pressure 118/71 126/73 113/51 O2 Sat by Pulse 96 97 94 Oximetry 05/26/21 05/26/21 05/26/21 08:16 08:30 08:46 Pulse Rate 109 H 109 H 107 H Respiratory 30 H 30 H 30 H Rate Blood Pressure 120/72 118/70 116/70 O2 Sat by Pulse 96 97 97 Oximetry 05/26/21 05/26/21 05/26/21 09:00 09:16 09:30 Pulse Rate 104 H 106 H 156 H Respiratory 30 H 30 H 30 H Rate Blood Pressure 120/68 121/72 113/51 O2 Sat by Pulse 96 97 98 Oximetry 05/26/21 05/26/21 05/26/21 09:46 10:00 10:16 Pulse Rate 153 H 149 H 146 H Respiratory 30 H 30 H 30 H Rate Blood Pressure 120/60 113/53 110/54 O2 Sat by Pulse 96 96 97 Oximetry 05/26/21 05/26/21 05/26/21 10:30 10:46 11:00 Pulse Rate 107 H 107 H 106 H Respiratory 30 H 30 H 30 H Rate Blood Pressure 116/70 112/64 112/61 O2 Sat by Pulse 96 98 97 Oximetry 05/26/21 05/26/21 05/26/21 11:16 11:30 11:46 Pulse Rate 105 H 104 H 104 H Respiratory 30 H 30 H 30 H Rate Blood Pressure 107/59 109/59 110/62 O2 Sat by Pulse 97 97 97 Oximetry 05/26/21 05/26/21 05/26/21 12:00 12:16 12:30 Pulse Rate 103 H 103 H 103 H Respiratory 30 H 30 H 30 H Rate Blood Pressure 110/63 112/63 112/64 O2 Sat by Pulse 97 97 97 Oximetry 05/26/21 05/26/21 05/26/21 12:46 13:00 13:16 Pulse Rate 102 H 101 H 100 H Respiratory 30 H 30 H 30 H Rate Blood Pressure 112/63 112/64 114/66 O2 Sat by Pulse 97 97 97 Oximetry 05/26/21 05/26/21 05/26/21 13:30 13:46 14:00 Pulse Rate 96 H 96 H 96 H Respiratory 30 H 30 H 30 H Rate Blood Pressure 105/53 103/55 104/55 O2 Sat by Pulse 97 98 97 Oximetry 05/26/21 14:16 Pulse Rate 97 H Respiratory 30 H Rate Blood Pressure 105/56 O2 Sat by Pulse 98 Oximetry CBC and BMP: 05/27/21 03:18 05/27/21 03:18 ABG, PT/INR, D-dimer: ABG ABG pH 7.393 pH Units (7.350-7.450) 05/26/21 03:16 POC ABG pCO2 41.6 mmHg (32.0-48.0) 05/24/21 03:44 ABG pCO2 36.6 mm Hg 05/26/21 03:16 POC ABG pO2 87.6 mmHg (83-108) 05/24/21 03:44 ABG pO2 89.4 mm Hg (80.0-90.0) 05/26/21 03:16 POC ABG HCO3 17.5 05/24/21 03:44 ABG O2 Saturation 97.2 % (95.0-99.0) 05/26/21 03:16 Abnormal lab findings: Abnormal Labs 05/23/21 05/23/21 05/23/21 05:55 09:38 09:38 WBC RBC 5.09 H Hct 46.2 H MCHC RDW Seg Neuts % (Manual) Lymphocytes % (Manual) Seg Neutrophils # Man Lymphocytes # (Manual) ABG pH 7.265 L ABG pO2 ABG O2 Saturation 94.6 L ABG Base Excess -4.5 L ABG Hemoglobin ABG Potassium ABG Glucose Oxyhemoglobin 92.3 L Potassium Chloride Carbon Dioxide 20 L BUN Creatinine Glucose 147 H Lactic Acid Calcium Total Bilirubin Total Creatine Kinase NT-Pro-B Natriuret Pep Total Protein Albumin 3.6 L Arterial Blood Glucose Urine WBC (Auto) Salicylates Acetaminophen 05/23/21 05/23/21 05/23/21 09:38 09:38 09:38 WBC RBC Hct MCHC RDW Seg Neuts % (Manual) Lymphocytes % (Manual) Seg Neutrophils # Man Lymphocytes # (Manual) ABG pH ABG pO2 ABG O2 Saturation ABG Base Excess ABG Hemoglobin ABG Potassium ABG Glucose Oxyhemoglobin Potassium Chloride Carbon Dioxide BUN Creatinine Glucose Lactic Acid Calcium Total Bilirubin Total Creatine Kinase NT-Pro-B Natriuret Pep 6058 H Total Protein Albumin Arterial Blood Glucose Urine WBC (Auto) Salicylates < 0.3 L Acetaminophen 5.0 L 05/23/21 05/23/21 05/24/21 12:49 Unknown 03:44 WBC RBC Hct MCHC RDW Seg Neuts % (Manual) Lymphocytes % (Manual) Seg Neutrophils # Man Lymphocytes # (Manual) ABG pH 7.208 L 7.241 L ABG pO2 52.2 L ABG O2 Saturation 93.5 L 83.7 L ABG Base Excess -6.7 L -3.7 L ABG Hemoglobin ABG Potassium 5.6 H ABG Glucose 53 L Oxyhemoglobin 91.1 L 81.1 L Potassium Chloride Carbon Dioxide BUN Creatinine Glucose Lactic Acid Calcium Total Bilirubin Total Creatine Kinase NT-Pro-B Natriuret Pep Total Protein Albumin Arterial Blood Glucose 53 L Urine WBC (Auto) Salicylates Acetaminophen 05/24/21 05/24/21 05/24/21 05:14 05:14 09:35 WBC 23.3 H RBC 5.23 H Hct 47.3 H MCHC RDW 15.3 H Seg Neuts % (Manual) 12.0 L Lymphocytes % (Manual) 3.0 L Seg Neutrophils # Man Lymphocytes # (Manual) 0.7 L ABG pH ABG pO2 ABG O2 Saturation ABG Base Excess ABG Hemoglobin ABG Potassium ABG Glucose Oxyhemoglobin Potassium 6.3 H* D Chloride 107.3 H Carbon Dioxide 20 L BUN 33 H Creatinine 3.5 H D Glucose 56 L Lactic Acid Calcium Total Bilirubin 1.90 H Total Creatine Kinase 556 H NT-Pro-B Natriuret Pep Total Protein 4.9 L D Albumin 2.8 L Arterial Blood Glucose Urine WBC (Auto) Salicylates Acetaminophen 05/24/21 05/24/21 05/25/21 19:45 Unknown 04:23 WBC 20.1 H RBC Hct MCHC 31 L RDW 15.5 H Seg Neuts % (Manual) 94.0 H Lymphocytes % (Manual) 5.0 L Seg Neutrophils # Man 18.9 H Lymphocytes # (Manual) 1.0 L ABG pH ABG pO2 ABG O2 Saturation ABG Base Excess ABG Hemoglobin ABG Potassium ABG Glucose Oxyhemoglobin Potassium 5.7 H Chloride 108.9 H Carbon Dioxide 21 L BUN 36 H Creatinine 2.6 H Glucose 108 H Lactic Acid Calcium Total Bilirubin Total Creatine Kinase NT-Pro-B Natriuret Pep Total Protein Albumin Arterial Blood Glucose Urine WBC (Auto) 78.0 H Salicylates Acetaminophen 05/25/21 05/25/21 05/25/21 04:23 09:14 11:46 WBC RBC Hct MCHC RDW Seg Neuts % (Manual) Lymphocytes % (Manual) Seg Neutrophils # Man Lymphocytes # (Manual) ABG pH ABG pO2 ABG O2 Saturation ABG Base Excess ABG Hemoglobin ABG Potassium ABG Glucose Oxyhemoglobin Potassium Chloride 111.4 H Carbon Dioxide 18 L BUN 33 H Creatinine 1.9 H Glucose 121 H Lactic Acid 2.40 H* 2.60 H* Calcium Total Bilirubin Total Creatine Kinase NT-Pro-B Natriuret Pep Total Protein Albumin Arterial Blood Glucose Urine WBC (Auto) Salicylates Acetaminophen 05/25/21 05/26/21 05/26/21 18:00 03:16 05:55 WBC 22.0 H RBC Hct MCHC RDW 15.3 H Seg Neuts % (Manual) 96.0 H Lymphocytes % (Manual) 2.0 L Seg Neutrophils # Man 21.1 H Lymphocytes # (Manual) 0.4 L ABG pH ABG pO2 208.2 H ABG O2 Saturation 99.3 H ABG Base Excess -2.7 L -2.6 L ABG Hemoglobin 13.7 L 13.0 L ABG Potassium ABG Glucose Oxyhemoglobin 94.8 L Potassium Chloride Carbon Dioxide BUN Creatinine Glucose Lactic Acid Calcium Total Bilirubin Total Creatine Kinase NT-Pro-B Natriuret Pep Total Protein Albumin Arterial Blood Glucose Urine WBC (Auto) Salicylates Acetaminophen 05/26/21 05:55 WBC RBC Hct MCHC RDW Seg Neuts % (Manual) Lymphocytes % (Manual) Seg Neutrophils # Man Lymphocytes # (Manual) ABG pH ABG pO2 ABG O2 Saturation ABG Base Excess ABG Hemoglobin ABG Potassium ABG Glucose Oxyhemoglobin Potassium Chloride 111.3 H Carbon Dioxide 21 L BUN 23 H Creatinine Glucose 102 H Lactic Acid Calcium 8.3 L Total Bilirubin Total Creatine Kinase NT-Pro-B Natriuret Pep Total Protein Albumin Arterial Blood Glucose Urine WBC (Auto) Salicylates Acetaminophen
--- NOTE | 2021-05-26 15:10 | Progress Note ---
Assessment and Plan Assessment and plan: Hospital Course to date: 05/25/2021: Worsening interstitial infiltrates. unclear if this is a developing pneumonia from aspiration/volume overload. Empiric abx coverage. ECHO with bubble study ordered. Placed on iv abx. kidney function improving. 05/26/2021: Tachycardic on levo gtt, advised RN to titrate down as long as MAP > 65. HR improved on my follow up encounter. PCCM titrating vent down. Renal function improving....Cr now 1.3. No indication for TELEVISION NEWS REPORTER at this time per nephro. Assessment and Plan: #Acute hypoxic respiratory failure - Intubated for airway protection. - AB.3/38.4/52./21 on admission (post intubation Abg) - severely hypoxemic despite intubation, concern for aspiration. - CXR: mild interstitial edema - Mechanical ventilation, management per pcc - SAT/SBT trials daily - cxr/abg q48hr, trend p/f ratio - PCCM following #Acute toxic metabolic encephalopathy - Encephalopathic on arrival. multifactorial drug OD, analia. - tox screen positive for amphetamines - Supportive management: IVF, monitor electrolytes - daily SAT trials. #Acute kidney injury due to acute tubular necrosis - Cr: 3.5 on 03/24, baseline 0.9. suspect dehydration vs toxic exposure vs rhabdo - ordered UA and CK. - avoid nephrotoxic agents - IVF, monitor volume status daily. - strict I/O, christianson - consult nephrology #Bilateral Pneumonia - CXR institial infiltrates, possible aspiration - ABx: Vancomycin/Cefepime IV - order covid rt pcr & influneza antigen a/b #Sepsis POA - febrile, leukocytosis, source likely pulmonary - bcx, ucx, sputum cx - covid and flu testing - iv abx as above #Hyperkalemia - 6.3 on 03/24, s/p kionex, sodium bicarb, insulin, calcium gluconate - f/u repeat - nephrology consulted #Hypothermia - temp has normalized. #Rhabdomyolysis Patient has elevated protein and urine and elevated CK. We will continue IV fluids #Overdose by ingestion - amphetamines in tox screen - psych consulted #History of polysubstance abuse -Methamphetamine, nicotine #Advance care planning Disease education conducted, care plan discussed, diagnoses discussed, prognosis discussed, patient is full code, patient acknowledges understanding and agree with care plan, +30 minutes. The high probability of a clinically significant, sudden or life threatening deterioration of the [multi] system(s) required my full and direct attention, intervention and personal management. The aggregate critical care time was [60] minutes. This time is in addition to time spent performing reported procedures but includes the following: [x] Data Review and interpretation [x] Patient assessment and monitoring of vital signs [x] Documentation [x] Medication orders and management History Interval history: Remains intubated and sedated. Hospitalist Physical - Physical exam Narrative exam: Physical Exam: VITAL SIGNS: Reviewed. GENERAL: The patient appears normally developed, Vital signs as documented. Intubated and sedated HEAD: No signs of head trauma. EYES: Pupils are equal. Extraocular motions intact. EARS: Hearing grossly intact. MOUTH: Oropharynx is normal. NECK: No adenopathy, no JVD. CHEST: Chest with clear breath sounds bilaterally. No wheezes, rales, or rhonchi. CARDIAC: Regular rate and rhythm. S1 and S2, without murmurs, gallops, or rubs. VASCULAR: No Edema. Peripheral pulses normal and equal in all extremities. ABDOMEN: Soft, non tender and non distended. No rebound or guarding, and no masses palpated. Bowel Sounds normal. MUSCULOSKELETAL: Good range of motion of all major joints. Extremities without clubbing, cyanosis or edema. NEUROLOGIC EXAM: Alert and oriented x 4. no focal sensory or strength deficits. PSYCHIATRIC: Mood normal. SKIN: detail exam as documented in skin assessment - Constitutional Vitals: Temp Pulse Resp BP Pulse Ox 98.4 F 97 H 30 H 105/56 98 05/24/21 03:16 05/26/21 14:16 05/26/21 14:16 05/26/21 14:16 05/26/21 14:16 General appearance: Present: mild distress, obese HEART Score - HEART Score Troponin: Troponin T < 0.010 ng/mL (0.00-0.029) 05/23/21 09:38 Results - Labs CBC & Chem 7: 05/26/21 05:55 05/26/21 05:55 Labs: Laboratory Last Values WBC 22.0 K/mm3 (4.5-11.0) H 05/26/21 05:55 RBC 4.56 M/mm3 (3.65-5.03) 05/26/21 05:55 Hgb 13.2 gm/dl (11.8-15.2) 05/26/21 05:55 Hct 41.3 % (35.5-45.6) 05/26/21 05:55 MCV 91 fl (84-94) 05/26/21 05:55 MCH 29 pg (28-32) 05/26/21 05:55 MCHC 32 % (32-34) 05/26/21 05:55 RDW 15.3 % (13.2-15.2) H 05/26/21 05:55 Plt Count 197 K/mm3 (140-440) 05/26/21 05:55 Lymph % (Auto) 27.1 % (13.4-35.0) 05/23/21 09:38 [place] % (Auto) 5.5 % (0.0-7.3) 05/23/21 09:38 Eos % (Auto) 0.3 % (0.0-4.3) 05/23/21 09:38 Baso % (Auto) 1.2 % (0.0-1.8) 05/23/21 09:38 Lymph # (Auto) 2.5 K/mm3 (1.2-5.4) 05/23/21 09:38 [place] # (Auto) 0.5 K/mm3 (0.0-0.8) 05/23/21 09:38 Eos # (Auto) 0.0 K/mm3 (0.0-0.4) 05/23/21 09:38 Baso # (Auto) 0.1 K/mm3 (0.0-0.1) 05/23/21 09:38 Add Manual Diff Complete 05/26/21 05:55 Total Counted 100 05/26/21 05:55 Seg Neutrophils % Amalgamator 05/26/21 05:55 Seg Neuts % (Manual) 96.0 % (40.0-70.0) H 05/26/21 05:55 Band Neutrophils % 0 % 05/26/21 05:55 Lymphocytes % (Manual) 2.0 % (13.4-35.0) L 05/26/21 05:55 Reactive Lymphs % (Man) 0 % 05/26/21 05:55 Monocytes % (Manual) 2.0 % (0.0-7.3) 05/26/21 05:55 Eosinophils % (Manual) 0 % (0.0-4.3) 05/26/21 05:55 Basophils % (Manual) 0 % (0.0-1.8) 05/26/21 05:55 Metamyelocytes % 0 % 05/26/21 05:55 Myelocytes % 0 % 05/26/21 05:55 Promyelocytes % 0 % 05/26/21 05:55 Blast Cells % 0 % 05/26/21 05:55 Nucleated RBC % Not Reportable 05/26/21 05:55 Seg Neutrophils # 6.1 K/mm3 (1.8-7.7) 05/23/21 09:38 Seg Neutrophils # Man 21.1 K/mm3 (1.8-7.7) H 05/26/21 05:55 Band Neutrophils # 0.0 K/mm3 05/26/21 05:55 Lymphocytes # (Manual) 0.4 K/mm3 (1.2-5.4) L 05/26/21 05:55 Abs React Lymphs (Man) 0.0 K/mm3 05/26/21 05:55 Monocytes # (Manual) 0.4 K/mm3 (0.0-0.8) 05/26/21 05:55 Eosinophils # (Manual) 0.0 K/mm3 (0.0-0.4) 05/26/21 05:55 Basophils # (Manual) 0.0 K/mm3 (0.0-0.1) 05/26/21 05:55 Metamyelocytes # 0.0 K/mm3 05/26/21 05:55 Myelocytes # 0.0 K/mm3 05/26/21 05:55 Promyelocytes # 0.0 K/mm3 05/26/21 05:55 Blast Cells # 0.0 K/mm3 05/26/21 05:55 WBC Morphology Not Reportable 05/26/21 05:55 Hypersegmented Neuts Not Reportable 05/26/21 05:55 Hyposegmented Neuts Not Reportable 05/26/21 05:55 Hypogranular Neuts Not Reportable 05/26/21 05:55 Smudge Cells Not Reportable 05/26/21 05:55 Toxic Granulation 1+ 05/26/21 05:55 Toxic Vacuolation Not Reportable 05/26/21 05:55 Dohle Bodies Not Reportable 05/26/21 05:55 Pelger-Huet Anomaly Not Reportable 05/26/21 05:55 Glenn Rods Not Reportable 05/26/21 05:55 Platelet Estimate Consistent w auto 05/26/21 05:55 Clumped Platelets Not Reportable 05/26/21 05:55 Plt Clumps, EDTA Not Reportable 05/26/21 05:55 Large Platelets Not Reportable 05/26/21 05:55 Giant Platelets Not Reportable 05/26/21 05:55 Platelet Satelliting Not Reportable 05/26/21 05:55 Plt Morphology Comment Not Reportable 05/26/21 05:55 RBC Morphology Normal 05/26/21 05:55 Dimorphic RBCs Not Reportable 05/26/21 05:55 Polychromasia Not Reportable 05/26/21 05:55 Hypochromasia Not Reportable 05/26/21 05:55 Poikilocytosis Not Reportable 05/26/21 05:55 Anisocytosis Not Reportable 05/26/21 05:55 Microcytosis Not Reportable 05/26/21 05:55 Macrocytosis Not Reportable 05/26/21 05:55 Spherocytes Not Reportable 05/26/21 05:55 Pappenheimer Bodies Not Reportable 05/26/21 05:55 Sickle Cells Not Reportable 05/26/21 05:55 Target Cells Not Reportable 05/26/21 05:55 Tear Drop Cells Not Reportable 05/26/21 05:55 Ovalocytes Not Reportable 05/26/21 05:55 Helmet Cells Not Reportable 05/26/21 05:55 [place] Bodies Not Reportable 05/26/21 05:55 [place] Rings Not Reportable 05/26/21 05:55 [place] Cells Not Reportable 05/26/21 05:55 Bite Cells Not Reportable 05/26/21 05:55 Crenated Cell Not Reportable 05/26/21 05:55 Elliptocytes Not Reportable 05/26/21 05:55 Acanthocytes (Spur) Not Reportable 05/26/21 05:55 Rouleaux Not Reportable 05/26/21 05:55 Hemoglobin C Crystals Not Reportable 05/26/21 05:55 Schistocytes Not Reportable 05/26/21 05:55 Malaria parasites Not Reportable 05/26/21 05:55 Frandy Bodies Not Reportable 05/26/21 05:55 Hem Pathologist Commnt No 05/26/21 05:55 ABG pH 7.393 pH Units (7.350-7.450) 05/26/21 03:16 POC ABG pCO2 41.6 mmHg (32.0-48.0) 05/24/21 03:44 ABG pCO2 36.6 mm Hg 05/26/21 03:16 POC ABG pO2 87.6 mmHg (83-108) 05/24/21 03:44 ABG pO2 89.4 mm Hg (80.0-90.0) 05/26/21 03:16 POC ABG HCO3 17.5 05/24/21 03:44 ABG HCO3 21.8 mmol/L (20.0-26.0) 05/26/21 03:16 ABG O2 Saturation 97.2 % (95.0-99.0) 05/26/21 03:16 ABG O2 Content 17.4 (0.0-44) 05/26/21 03:16 POC ABG Base Excess -9.5 05/24/21 03:44 ABG Base Excess -2.6 mmol/L (-2.0-3.0) L 05/26/21 03:16 ABG Hemoglobin 13.0 gm/dl (14.0-18.0) L 05/26/21 03:16 ABG Oxyhemoglobin 94.8 (94-98) 05/24/21 03:44 ABG Carboxyhemoglobin 1.9 % (0.0-5.0) 05/26/21 03:16 ABG Methemoglobin 0.6 % (0.0-1.5) 05/26/21 03:16 ABG Sodium 137.9 mmol/L (136.0-145.0) 05/24/21 03:44 ABG Potassium 5.6 mmol/L (3.40-4.50) H 05/24/21 03:44 ABG Chloride 105.0 mmol/L (98-107) 05/24/21 03:44 ABG Glucose 53 mg/dL (65-95) L 05/24/21 03:44 Oxyhemoglobin 94.8 % (95.0-99.0) L 05/26/21 03:16 Carboxyhemoglobin 0.8 (0.5-1.5) 05/24/21 03:44 FiO2 40 % 05/26/21 03:16 FiO2 % 100.0 05/24/21 03:44 Sodium 144 mmol/L (137-145) 05/26/21 05:55 Potassium 4.3 mmol/L (3.6-5.0) 05/26/21 05:55 Chloride 111.3 mmol/L (98-107) H 05/26/21 05:55 Carbon Dioxide 21 mmol/L (22-30) L 05/26/21 05:55 Anion Gap 16 mmol/L 05/26/21 05:55 BUN 23 mg/dL (9-20) H 05/26/21 05:55 Creatinine 1.3 mg/dL (0.8-1.3) 05/26/21 05:55 Estimated GFR > 60 ml/min 05/26/21 05:55 BUN/Creatinine Ratio 18 % 05/26/21 05:55 Glucose 102 mg/dL (75-100) H 05/26/21 05:55 POC Glucose 97 mg/dL (70-105) 05/24/21 09:54 Lactic Acid 2.60 mmol/L (0.7-2.0) H* 05/25/21 11:46 Calcium 8.3 mg/dL (8.4-10.2) L 05/26/21 05:55 Phosphorus 3.30 mg/dL (2.5-4.5) 05/25/21 04:23 Magnesium 1.80 mg/dL (1.7-2.3) 05/25/21 04:23 Total Bilirubin 1.90 mg/dL (0.1-1.2) H 05/24/21 05:14 AST 40 units/L (5-40) 05/24/21 05:14 ALT 24 units/L (7-56) 05/24/21 05:14 Alkaline Phosphatase 76 units/L (35-129) 05/24/21 05:14 Total Creatine Kinase 556 units/L (55-170) H 05/24/21 09:35 Troponin T < 0.010 ng/mL (0.00-0.029) 05/23/21 09:38 NT-Pro-B Natriuret Pep 6058 pg/mL (0-450) H 05/23/21 09:38 Total Protein 4.9 g/dL (6.3-8.2) L D 05/24/21 05:14 Albumin 2.8 g/dL (3.9-5) L 05/24/21 05:14 Albumin/Globulin Ratio 1.3 % 05/24/21 05:14 Arterial Blood Glucose 53 mg/dL (65-95) L 05/24/21 03:44 Arterial Blood Ionized Calcium 4.6 mg/dL (4.6-5.3) 05/24/21 03:44 Urine Color Sherri (Yellow) 05/24/21 Unknown Urine Turbidity Cloudy (Clear) 05/24/21 Unknown Urine pH 5.0 (5.0-7.0) 05/24/21 Unknown Ur Specific [place] 1.015 (1.003-1.030) 05/24/21 Unknown Urine Protein 100 mg/dl mg/dL (Negative) 05/24/21 Unknown Urine Glucose (UA) Neg mg/dL (Negative) 05/24/21 Unknown Urine Ketones Neg mg/dL (Negative) 05/24/21 Unknown Urine Blood Lg (Negative) 05/24/21 Unknown Urine Nitrite Neg (Negative) 05/24/21 Unknown Urine Bilirubin Neg (Negative) 05/24/21 Unknown Urine Urobilinogen 4.0 mg/dL (<2.0) 05/24/21 Unknown Ur Leukocyte Esterase Mod (Negative) 05/24/21 Unknown Urine WBC (Auto) 78.0 /HPF (0.0-6.0) H 05/24/21 Unknown Urine RBC (Auto) 86.0 /HPF (0.0-6.0) 05/24/21 Unknown U Epithel Cells (Auto) 2.0 /HPF (0-13.0) 05/24/21 Unknown Urine Mucus Few /HPF 05/24/21 Unknown Urine Yeast (Budding) 1+ /HPF 05/24/21 Unknown Salicylates < 0.3 mg/dL (2.8-20.0) L 05/23/21 09:38 Urine Opiates Screen Negative 05/23/21 09:41 Urine Methadone Screen Negative 05/23/21 09:41 Acetaminophen 5.0 ug/mL (10.0-30.0) L 05/23/21 09:38 Ur Barbiturates Screen Negative 05/23/21 09:41 Ur Phencyclidine Scrn Negative 05/23/21 09:41 Ur Amphetamines Screen Positive 05/23/21 09:41 U Benzodiazepines Scrn Negative 05/23/21 09:41 Urine Cocaine Screen Negative 05/23/21 09:41 U Marijuana (THC) Screen Negative 05/23/21 09:41 Drugs of Abuse Note Disclamer 05/23/21 09:41 Microbiology: Microbiology 05/24/21 Unknown Urine,Clean Catch Urine Culture - Final NO GROWTH AFTER 48 HOURS Active Medications - Current Medications Current Medications: Generic Name Dose Route Start Last Admin Trade Name Freq PRN Reason Stop Dose Admin Acetaminophen 650 mg 05/23/21 11:43 05/23/21 17:07 Acetaminophen 650 Mg Rect Supp [place] 650 mg Q6H PRN Administration Pain MILD(1-3)/Fever >100.5/EPSTEIN Famotidine 20 mg 05/25/21 11:00 05/26/21 10:16 Famotidine 20 Mg/2 Ml Inj IV 20 mg BID MARK Administration Hydromorphone HCl 0.5 mg 05/23/21 11:43 Hydromorphone 1 Mg/1 Ml Inj IV Q24H PRN Pain , Severe (7-10) Sodium Chloride 1,000 mls @ 125 mls/hr 05/23/21 14:00 05/26/21 13:16 Nacl 0.9% 1000 Ml IV 125 mls/hr DIRECT MARK Administration Dexmedetomidine HCl 400 mcg/ 104 mls @ 5.307 mls/hr 05/24/21 05:00 05/26/21 08:21 Sodium Chloride IV 0.2 mcg/kg/hr TITRATE MARK 5.307 mls/hr Titration Protocol 0.2 MCG/KG/HR NORepinephrine/NS 8 MG-250 ML 8 mg in 250 mls @ 3.75 mls/hr 05/24/21 11:00 05/26/21 13:23 Norepinephrine/Ns 8 Mg-250 Ml (Double Conc) IV 10 mcg/min TITRATE MARK 18.75 mls/hr Administration Protocol 2 MCG/MIN Morphine Sulfate 2 mg 05/23/21 11:43 Morphine 2 Mg/1 Ml Inj IV Q24H PRN Pain, Moderate (4-6) Ondansetron HCl 4 mg 05/23/21 11:43 Ondansetron 4 Mg/2 Ml Inj IV Q8H PRN Nausea And Vomiting Sodium Chloride 10 ml 05/23/21 22:00 05/26/21 10:01 Sodium Chloride 0.9% 10 Ml Flush Syringe IV 10 ml BID MARK Administration Sodium Chloride 10 ml 05/23/21 11:43 Sodium Chloride 0.9% 10 Ml Flush Syringe IV PRN PRN LINE FLUSH
--- NOTE | 2021-05-26 15:31 | XRay Report ---
CHEST 1 VIEW INDICATION: asp pneumonia, intubation. COMPARISON: 05/25/2021 FINDINGS: Support devices: Endotracheal tube terminates 6.9 cm superior to the erica, unchanged. Nasogastric t ube in the neck has been removed. Heart: Stable cardiomegaly Lungs/Pleura: Mild improvement in pulmonary venous congestion is demonstrated. The lungs are generall y clear otherwise. No evidence for pneumonia, aspiration, pleural effusion or pneumothorax. Additional findings: None. IMPRESSION: Mild improvement as described. Signer Name: Dhruv De La Cruz Jr, MD Signed: 05/26/2021 3:27 PM Workstation Name: [id number]
[2021-05-27] MEDS ORDERED: EPINEPHrine RACEMIC 2.25% 0.5ML NEBU IH ONE (01:56)
[2021-05-27] MEDS ORDERED: ETOMIDATE 20 MG/10 ML INJ IV ONE ×2 (02:03→02:05)
[2021-05-27] MEDS ORDERED: SUCCINYLCHOLINE CHLORIDE 200 MG/10 ML INJ MDV ONE (02:03)
[2021-05-27] MEDS ORDERED: ROCURONIUM 50 MG/5 ML INJ IV ONE ×2 (02:05)
--- NOTE | 2021-05-27 02:17 | Event Note ---
Date: 05/27/21 I was called by nurse and topography technician to reintubate the patient. Patient was intubated few days ago secondary to overdose. There is an order from last marker to extubate the patient if patient is started working however immediately after extubation patient started having significant tachypnea with respiratory rate of 38 and oxygen saturation dropped to 82% on a nonrebreather. After aggressive suctioning patient oxygen saturation is still remain in the 80s and his work of breathing is more. Patient is obtunded and is not responding to painful stimuli. Patient GCS is 3. Using a medication assisted intubation, patient initially given etomidate and then rocuronium. I was able to past 7.5 ET tube through the vocal cord using a glide scope with no difficulties. Positive color change to yellow. Good breath sounds on both sides. Patient oxygen saturation now is 95%. Chest x-ray has been ordered to confirm the ET tube placement.
--- NOTE | 2021-05-27 02:52 | XRay Report ---
CHEST 1 VIEW 05/27/2021 2:18 AM INDICATION / CLINICAL INFORMATION: ET tube placement. COMPARISON: 05/26/21 FINDINGS: SUPPORT DEVICES: Endotracheal tube is 6.7 cm above the erica in expected position. HEART / MEDIASTINUM: Enlarged but stable. LUNGS / PLEURA: Mild bilateral interstitial infiltrates are stable. No pneumothorax. ADDITIONAL FINDINGS: No significant additional findings. IMPRESSION: 1. Endotracheal tube in expected position. Signer Name: Junior Lunsford MD Signed: 05/27/2021 2:48 AM Workstation Name: [id number]
[2021-05-27 03:51] LABS: Hematocrit 41.1 % (35.5-45.6); Hemoglobin 13.2 gm/dl (11.8-15.2); Mean Corpuscular HGB Conc 32 % (32-34); Mean Corpuscular Volume 90 fl (84-94); Platelet Count 185 K/mm3 (140-440); Red Blood Count 4.57 M/mm3 (3.65-5.03); Red Cell Distribution Width 15.5 % (13.2-15.2)
[2021-05-27 04:11] LABS: Alanine Aminotransferase 38 units/L (7-56); Albumin 2.9 g/dL (3.9-5); BUN/Creatinine Ratio 19; Blood Urea Nitrogen 19 mg/dL (9-20); Calcium 8.8 mg/dL (8.4-10.2); Hemolysis Index 1
[2021-05-27] MEDS: fentaNYL 100 MCG/2 ML INJ IV PRN ×3 (06:37→07:21)
[2021-05-27 06:40] LABS: Basophils % (Manual) 0 % (0.0-1.8); Eosinophils % (Manual) 0 % (0.0-4.3); Total Cells Counted 100
[2021-05-27 06:41] LABS: Platelet Estimate Consistent w Auto; RBC Morphology Normal
[2021-05-27] MEDS: fentaNYL DRIP Premix 2,000 MCG/100 ML BAG IV SCH ×3 (07:45→21:30)
--- NOTE | 2021-05-27 08:14 | Progress Note ---
Assessment and Plan Assessment and plan: Hospital Course to date: 05/25/2021: Worsening interstitial infiltrates. unclear if this is a developing pneumonia from aspiration/volume overload. Empiric abx coverage. ECHO with bubble study ordered. Placed on iv abx. kidney function improving. 05/26/2021: Tachycardic on levo gtt, advised RN to titrate down as long as MAP > 65. HR improved on my follow up encounter. PCCM titrating vent down. Renal function improving....Cr now 1.3. No indication for POWER TECHNICIAN at this time per nephro. 05/27/2021: Extubated yesterday however in respiratory distress, re-intubated. Patient has severe systolic heart failure. Cardiology consulted for severe systolic heart failure. Will need to discuss optimal strategy regarding diuresis. Assessment and Plan: #Acute hypoxic respiratory failure - Intubated for airway protection. - AB.3/38.4/52./21 on admission (post intubation Abg) - severely hypoxemic despite intubation, concern for aspiration. - CXR: mild interstitial edema - Mechanical ventilation, management per pcc - SAT/SBT trials daily - cxr/abg q48hr, trend p/f ratio - [facility] following #Acute toxic metabolic encephalopathy - Encephalopathic on arrival. multifactorial drug OD, analia. - tox screen positive for amphetamines - Supportive management: IVF, monitor electrolytes - daily SAT trials. #Acute kidney injury due to acute tubular necrosis - Cr: 3.5 on 03/24, baseline 0.9. suspect dehydration vs toxic exposure vs rhabdo - ordered UA and CK. - avoid nephrotoxic agents - IVF, monitor volume status daily. - strict I/O, christianson - consult nephrology - kidney function improved to nearly baseline. #HFrEF Per cardiology records: - Echo 05/25/2021-EF 20 to 25%. Severe global hypokinesis of left ventricle. Left ventricle is moderately dilated. Doppler flow suggests impaired LV relaxation. Moderate mitral regurgitation. No pericardial effusion - Cardiac cath 08/04/2020-Angiographically normal coronary arteries. This is indicative of a nonischemic cardiomyopathy. Mildly elevated biventricular filling pressures with normal cardiac index - TTE, complete 08/02/20:LVEF is 18%,Severe global LV hypokinesis. Normal LV diastolic function. LA mildly dilated. Moderate mitral regurgitation with an eccentric MR jet(s),No previous echocardiogram for comparison. - Could be volume overloaded from fluid admin early in admission - Could benefit from diuresis - Will follow cardiology/nephro recs re: diuresis #Bilateral Pneumonia - CXR institial infiltrates, possible aspiration - ABx: Vancomycin/Cefepime IV - order covid rt pcr & influneza antigen a/b #Sepsis POA - febrile, leukocytosis, source likely pulmonary - bcx, ucx, sputum cx - covid and flu testing - iv abx as above Hypokalemia - ERP - trend on BMP #Hyperkalemia - 6.3 on 03/24, s/p kionex, sodium bicarb, insulin, calcium gluconate - f/u repeat - nephrology consulted #Hypothermia - temp has normalized. #Rhabdomyolysis Patient has elevated protein and urine and elevated CK. We will continue IV fluids #Overdose by ingestion - amphetamines in tox screen - psych consulted #History of polysubstance abuse -Methamphetamine, nicotine #Advance care planning Disease education conducted, care plan discussed, diagnoses discussed, prognosis discussed, patient is full code, patient acknowledges understanding and agree with care plan, +30 minutes. The high probability of a clinically significant, sudden or life threatening deterioration of the multi system(s) required my full and direct attention, intervention and personal management. The aggregate critical care time was [60] minutes. This time is in addition to time spent performing reported procedures but includes the following: [x] Data Review and interpretation [x] Patient assessment and monitoring of vital signs [x] Documentation [x] Medication orders and management History Interval history: intubated and sedated. Hospitalist Physical - Physical exam Narrative exam: Physical Exam: VITAL SIGNS: Reviewed. GENERAL: The patient appears normally developed, Vital signs as documented. Intubated and sedated HEAD: No signs of head trauma. EYES: Pupils are equal. Extraocular motions intact. EARS: Hearing grossly intact. MOUTH: Oropharynx is normal. NECK: No adenopathy, no JVD. CHEST: Chest with clear breath sounds bilaterally. No wheezes, rales, or rhonchi. CARDIAC: Regular rate and rhythm. S1 and S2, without murmurs, gallops, or rubs. VASCULAR: No Edema. Peripheral pulses normal and equal in all extremities. ABDOMEN: Soft, non tender and non distended. No rebound or guarding, and no masses palpated. Bowel Sounds normal. MUSCULOSKELETAL: Good range of motion of all major joints. Extremities without clubbing, cyanosis or edema. NEUROLOGIC EXAM: Alert and oriented x 4. no focal sensory or strength deficits. PSYCHIATRIC: Mood normal. SKIN: detail exam as documented in skin assessment - Constitutional Vitals: Temp Pulse Resp BP Pulse Ox 98.4 F 142 H 32 H 165/105 95 05/24/21 03:16 05/27/21 03:01 05/27/21 03:01 05/27/21 03:01 05/27/21 03:01 General appearance: Present: mild distress, obese HEART Score - HEART Score Troponin: Troponin T < 0.010 ng/mL (0.00-0.029) 05/23/21 09:38 Results - Labs CBC & Chem 7: 05/27/21 03:18 05/27/21 03:18 Labs: Laboratory Last Values WBC 21.5 K/mm3 (4.5-11.0) H 05/27/21 03:18 RBC 4.57 M/mm3 (3.65-5.03) 05/27/21 03:18 Hgb 13.2 gm/dl (11.8-15.2) 05/27/21 03:18 Hct 41.1 % (35.5-45.6) 05/27/21 03:18 MCV 90 fl (84-94) 05/27/21 03:18 MCH 29 pg (28-32) 05/27/21 03:18 MCHC 32 % (32-34) 05/27/21 03:18 RDW 15.5 % (13.2-15.2) H 05/27/21 03:18 Plt Count 185 K/mm3 (140-440) 05/27/21 03:18 Lymph % (Auto) 27.1 % (13.4-35.0) 05/23/21 09:38 [place] % (Auto) 5.5 % (0.0-7.3) 05/23/21 09:38 Eos % (Auto) 0.3 % (0.0-4.3) 05/23/21 09:38 Baso % (Auto) 1.2 % (0.0-1.8) 05/23/21 09:38 Lymph # (Auto) 2.5 K/mm3 (1.2-5.4) 05/23/21 09:38 [place] # (Auto) 0.5 K/mm3 (0.0-0.8) 05/23/21 09:38 Eos # (Auto) 0.0 K/mm3 (0.0-0.4) 05/23/21 09:38 Baso # (Auto) 0.1 K/mm3 (0.0-0.1) 05/23/21 09:38 Add Manual Diff Complete 05/27/21 03:18 Total Counted 100 05/27/21 03:18 Seg Neutrophils % Still Photographer 05/27/21 03:18 Seg Neuts % (Manual) 92.0 % (40.0-70.0) H 05/27/21 03:18 Band Neutrophils % 0 % 05/27/21 03:18 Lymphocytes % (Manual) 5.0 % (13.4-35.0) L 05/27/21 03:18 Reactive Lymphs % (Man) 0 % 05/27/21 03:18 Monocytes % (Manual) 3.0 % (0.0-7.3) 05/27/21 03:18 Eosinophils % (Manual) 0 % (0.0-4.3) 05/27/21 03:18 Basophils % (Manual) 0 % (0.0-1.8) 05/27/21 03:18 Metamyelocytes % 0 % 05/27/21 03:18 Myelocytes % 0 % 05/27/21 03:18 Promyelocytes % 0 % 05/27/21 03:18 Blast Cells % 0 % 05/27/21 03:18 Nucleated RBC % Not Reportable 05/27/21 03:18 Seg Neutrophils # 6.1 K/mm3 (1.8-7.7) 05/23/21 09:38 Seg Neutrophils # Man 19.8 K/mm3 (1.8-7.7) H 05/27/21 03:18 Band Neutrophils # 0.0 K/mm3 05/27/21 03:18 Lymphocytes # (Manual) 1.1 K/mm3 (1.2-5.4) L 05/27/21 03:18 Abs React Lymphs (Man) 0.0 K/mm3 05/27/21 03:18 Monocytes # (Manual) 0.6 K/mm3 (0.0-0.8) 05/27/21 03:18 Eosinophils # (Manual) 0.0 K/mm3 (0.0-0.4) 05/27/21 03:18 Basophils # (Manual) 0.0 K/mm3 (0.0-0.1) 05/27/21 03:18 Metamyelocytes # 0.0 K/mm3 05/27/21 03:18 Myelocytes # 0.0 K/mm3 05/27/21 03:18 Promyelocytes # 0.0 K/mm3 05/27/21 03:18 Blast Cells # 0.0 K/mm3 05/27/21 03:18 WBC Morphology Not Reportable 05/27/21 03:18 Hypersegmented Neuts Not Reportable 05/27/21 03:18 Hyposegmented Neuts Not Reportable 05/27/21 03:18 Hypogranular Neuts Not Reportable 05/27/21 03:18 Smudge Cells Not Reportable 05/27/21 03:18 Toxic Granulation Not Reportable 05/27/21 03:18 Toxic Vacuolation Not Reportable 05/27/21 03:18 Dohle Bodies Not Reportable 05/27/21 03:18 Pelger-Huet Anomaly Not Reportable 05/27/21 03:18 Glenn Rods Not Reportable 05/27/21 03:18 Platelet Estimate Consistent w auto 05/27/21 03:18 Clumped Platelets Not Reportable 05/27/21 03:18 Plt Clumps, EDTA Not Reportable 05/27/21 03:18 Large Platelets Not Reportable 05/27/21 03:18 Giant Platelets Not Reportable 05/27/21 03:18 Platelet Satelliting Not Reportable 05/27/21 03:18 Plt Morphology Comment Not Reportable 05/27/21 03:18 RBC Morphology Normal 05/27/21 03:18 Dimorphic RBCs Not Reportable 05/27/21 03:18 Polychromasia Not Reportable 05/27/21 03:18 Hypochromasia Not Reportable 05/27/21 03:18 Poikilocytosis Not Reportable 05/27/21 03:18 Anisocytosis Not Reportable 05/27/21 03:18 Microcytosis Not Reportable 05/27/21 03:18 Macrocytosis Not Reportable 05/27/21 03:18 Spherocytes Not Reportable 05/27/21 03:18 Pappenheimer Bodies Not Reportable 05/27/21 03:18 Sickle Cells Not Reportable 05/27/21 03:18 Target Cells Not Reportable 05/27/21 03:18 Tear Drop Cells Not Reportable 05/27/21 03:18 Ovalocytes Not Reportable 05/27/21 03:18 Helmet Cells Not Reportable 05/27/21 03:18 [place] Bodies Not Reportable 05/27/21 03:18 [place] Rings Not Reportable 05/27/21 03:18 [place] Cells Not Reportable 05/27/21 03:18 Bite Cells Not Reportable 05/27/21 03:18 Crenated Cell Not Reportable 05/27/21 03:18 Elliptocytes Not Reportable 05/27/21 03:18 Acanthocytes (Spur) Not Reportable 05/27/21 03:18 Rouleaux Not Reportable 05/27/21 03:18 Hemoglobin C Crystals Not Reportable 05/27/21 03:18 Schistocytes Not Reportable 05/27/21 03:18 Malaria parasites Not Reportable 05/27/21 03:18 Frandy Bodies Not Reportable 05/27/21 03:18 Hem Pathologist Commnt No 05/27/21 03:18 ABG pH 7.393 pH Units (7.350-7.450) 05/26/21 03:16 POC ABG pCO2 41.6 mmHg (32.0-48.0) 05/24/21 03:44 ABG pCO2 36.6 mm Hg 05/26/21 03:16 POC ABG pO2 87.6 mmHg (83-108) 05/24/21 03:44 ABG pO2 89.4 mm Hg (80.0-90.0) 05/26/21 03:16 POC ABG HCO3 17.5 05/24/21 03:44 ABG HCO3 21.8 mmol/L (20.0-26.0) 05/26/21 03:16 ABG O2 Saturation 97.2 % (95.0-99.0) 05/26/21 03:16 ABG O2 Content 17.4 (0.0-44) 05/26/21 03:16 POC ABG Base Excess -9.5 05/24/21 03:44 ABG Base Excess -2.6 mmol/L (-2.0-3.0) L 05/26/21 03:16 ABG Hemoglobin 13.0 gm/dl (14.0-18.0) L 05/26/21 03:16 ABG Oxyhemoglobin 94.8 (94-98) 05/24/21 03:44 ABG Carboxyhemoglobin 1.9 % (0.0-5.0) 05/26/21 03:16 ABG Methemoglobin 0.6 % (0.0-1.5) 05/26/21 03:16 ABG Sodium 137.9 mmol/L (136.0-145.0) 05/24/21 03:44 ABG Potassium 5.6 mmol/L (3.40-4.50) H 05/24/21 03:44 ABG Chloride 105.0 mmol/L (98-107) 05/24/21 03:44 ABG Glucose 53 mg/dL (65-95) L 05/24/21 03:44 Oxyhemoglobin 94.8 % (95.0-99.0) L 05/26/21 03:16 Carboxyhemoglobin 0.8 (0.5-1.5) 05/24/21 03:44 FiO2 40 % 05/26/21 03:16 FiO2 % 100.0 05/24/21 03:44 Sodium 148 mmol/L (137-145) H 05/27/21 03:18 Potassium 4.0 mmol/L (3.6-5.0) 05/27/21 03:18 Chloride 113.8 mmol/L (98-107) H 05/27/21 03:18 Carbon Dioxide 20 mmol/L (22-30) L 05/27/21 03:18 Anion Gap 18 mmol/L 05/27/21 03:18 BUN 19 mg/dL (9-20) 05/27/21 03:18 Creatinine 1.0 mg/dL (0.8-1.3) 05/27/21 03:18 Estimated GFR > 60 ml/min 05/27/21 03:18 BUN/Creatinine Ratio 19 % 05/27/21 03:18 Glucose 103 mg/dL (75-100) H 05/27/21 03:18 POC Glucose 97 mg/dL (70-105) 05/24/21 09:54 Lactic Acid 2.60 mmol/L (0.7-2.0) H* 05/25/21 11:46 Calcium 8.8 mg/dL (8.4-10.2) 05/27/21 03:18 Phosphorus 3.30 mg/dL (2.5-4.5) 05/25/21 04:23 Magnesium 1.80 mg/dL (1.7-2.3) 05/25/21 04:23 Total Bilirubin 7.80 mg/dL (0.1-1.2) H 05/27/21 03:18 AST 112 units/L (5-40) H 05/27/21 03:18 ALT 38 units/L (7-56) 05/27/21 03:18 Alkaline Phosphatase 111 units/L (35-129) 05/27/21 03:18 Total Creatine Kinase 556 units/L (55-170) H 05/24/21 09:35 Troponin T < 0.010 ng/mL (0.00-0.029) 05/23/21 09:38 NT-Pro-B Natriuret Pep 6058 pg/mL (0-450) H 05/23/21 09:38 Total Protein 5.2 g/dL (6.3-8.2) L 05/27/21 03:18 Albumin 2.9 g/dL (3.9-5) L 05/27/21 03:18 Albumin/Globulin Ratio 1.3 % 05/27/21 03:18 Arterial Blood Glucose 53 mg/dL (65-95) L 05/24/21 03:44 Arterial Blood Ionized Calcium 4.6 mg/dL (4.6-5.3) 05/24/21 03:44 Urine Color Sherri (Yellow) 05/24/21 Unknown Urine Turbidity Cloudy (Clear) 05/24/21 Unknown Urine pH 5.0 (5.0-7.0) 05/24/21 Unknown Ur Specific [place] 1.015 (1.003-1.030) 05/24/21 Unknown Urine Protein 100 mg/dl mg/dL (Negative) 05/24/21 Unknown Urine Glucose (UA) Neg mg/dL (Negative) 05/24/21 Unknown Urine Ketones Neg mg/dL (Negative) 05/24/21 Unknown Urine Blood Lg (Negative) 05/24/21 Unknown Urine Nitrite Neg (Negative) 05/24/21 Unknown Urine Bilirubin Neg (Negative) 05/24/21 Unknown Urine Urobilinogen 4.0 mg/dL (<2.0) 05/24/21 Unknown Ur Leukocyte Esterase Mod (Negative) 05/24/21 Unknown Urine WBC (Auto) 78.0 /HPF (0.0-6.0) H 05/24/21 Unknown Urine RBC (Auto) 86.0 /HPF (0.0-6.0) 05/24/21 Unknown U Epithel Cells (Auto) 2.0 /HPF (0-13.0) 05/24/21 Unknown Urine Mucus Few /HPF 05/24/21 Unknown Urine Yeast (Budding) 1+ /HPF 05/24/21 Unknown Salicylates < 0.3 mg/dL (2.8-20.0) L 05/23/21 09:38 Urine Opiates Screen Negative 05/23/21 09:41 Urine Methadone Screen Negative 05/23/21 09:41 Acetaminophen 5.0 ug/mL (10.0-30.0) L 05/23/21 09:38 Ur Barbiturates Screen Negative 05/23/21 09:41 Ur Phencyclidine Scrn Negative 05/23/21 09:41 Ur Amphetamines Screen Positive 05/23/21 09:41 U Benzodiazepines Scrn Negative 05/23/21 09:41 Urine Cocaine Screen Negative 05/23/21 09:41 U Marijuana (THC) Screen Negative 05/23/21 09:41 Drugs of Abuse Note Disclamer 05/23/21 09:41 Coronavirus (PCR) Negative (Negative) 05/26/21 08:14 Microbiology: Microbiology 05/24/21 Unknown Urine,Clean Catch Urine Culture - Final NO GROWTH AFTER 48 HOURS Active Medications - Current Medications Current Medications: Generic Name Dose Route Start Last Admin Trade Name Freq PRN Reason Stop Dose Admin Acetaminophen 650 mg 05/23/21 11:43 05/23/21 17:07 Acetaminophen 650 Mg Rect Supp MD 650 mg Q6H PRN Administration Pain MILD(1-3)/Fever >100.5/EPSTEIN Famotidine 20 mg 05/25/21 11:00 05/26/21 22:52 Famotidine 20 Mg/2 Ml Inj IV 20 mg BID MARK Administration Fentanyl 50 mcg 05/27/21 06:37 05/27/21 07:21 Fentanyl 100 Mcg/2 Ml Inj IV 50 mcg Q10MIN PRN Administration ANALGESIA Hydromorphone HCl 0.5 mg 05/23/21 11:43 Hydromorphone 1 Mg/1 Ml Inj IV Q24H PRN Pain , Severe (7-10) Sodium Chloride 1,000 mls @ 125 mls/hr 05/23/21 14:00 05/26/21 13:16 Nacl 0.9% 1000 Ml IV 125 mls/hr DIRECT MARK Administration Dexmedetomidine HCl 400 mcg/ 104 mls @ 5.307 mls/hr 05/24/21 05:00 05/27/21 05:50 Sodium Chloride IV 0.4 mcg/kg/hr TITRATE MARK 10.614 mls/hr Titration Protocol 0.2 MCG/KG/HR NORepinephrine/NS 8 MG-250 ML 8 mg in 250 mls @ 3.75 mls/hr 05/24/21 11:00 05/26/21 21:19 Norepinephrine/Ns 8 Mg-250 Ml (Double Conc) IV 10 mcg/min TITRATE MARK 18.75 mls/hr Administration Protocol 2 MCG/MIN Fentanyl Citrate 2,000 mcg in 100 mls @ 5.103 mls/hr 05/27/21 07:00 05/27/21 08:01 Fentanyl Drip Premix IV 2 mcg/kg/hr TITR MARK 10.206 mls/hr Titration Protocol 1 MCG/KG/HR Morphine Sulfate 2 mg 05/23/21 11:43 Morphine 2 Mg/1 Ml Inj IV Q24H PRN Pain, Moderate (4-6) Ondansetron HCl 4 mg 05/23/21 11:43 Ondansetron 4 Mg/2 Ml Inj IV Q8H PRN Nausea And Vomiting Sodium Chloride 10 ml 05/23/21 22:00 05/26/21 22:52 Sodium Chloride 0.9% 10 Ml Flush Syringe IV 10 ml BID MARK Administration Sodium Chloride 10 ml 05/23/21 11:43 Sodium Chloride 0.9% 10 Ml Flush Syringe IV PRN PRN LINE FLUSH
--- NOTE | 2021-05-27 09:37 | Progress Note ---
Assessment and Plan Impression: * Nonoliguric cute kidney injury secondary to ATN * Acute hypoxic respiratory failure --COVID 19 negative * Acute encephalopathy * Hypotension * Drug overdose * Hyperkalemia * Hypernatremia Plan: * Renal function has improved. No acute need for HD presently. * Continue close monitoring of renal function * Medical management of electrolytes * Vent management per pulm * Pressors prn - maintain MAP>65; * Dose medications for renal function * Strict I/O - maintain christianson catheter in critically ill patient * Avoid potential nephrotoxins Subjective Date of service: 05/27/21 Interval history: Chart, vitals, labs reviewed. Patient remains intubated - ACVC Rate 30, TV 500, FiO2 40, PEEP 6 Objective - Vital Signs Vital signs: Vital Signs - 12hr 05/26/21 05/26/21 05/27/21 22:01 23:01 00:01 Pulse Rate 103 H 102 H 104 H Respiratory 30 H 30 H 30 H Rate Blood Pressure 115/66 121/72 128/77 O2 Sat by Pulse 98 98 99 Oximetry 05/27/21 05/27/21 05/27/21 01:01 02:01 03:01 Pulse Rate 140 H 146 H 142 H Respiratory 40 H 43 H 32 H Rate Blood Pressure 125/70 142/87 165/105 O2 Sat by Pulse 98 88 95 Oximetry 05/27/21 05/27/21 05/27/21 03:31 03:45 04:01 Pulse Rate 130 H 128 H 126 H Respiratory 42 H 38 H 30 H Rate Blood Pressure 141/76 143/73 134/69 O2 Sat by Pulse 89 96 97 Oximetry 05/27/21 05/27/21 05/27/21 04:15 04:31 04:45 Pulse Rate 123 H 118 H 115 H Respiratory 29 H 30 H 30 H Rate Blood Pressure 139/71 118/57 110/67 O2 Sat by Pulse 98 98 98 Oximetry 05/27/21 05/27/21 05/27/21 05:01 05:15 05:31 Pulse Rate 113 H 123 H 119 H Respiratory 30 H 22 45 H Rate Blood Pressure 118/67 117/64 125/76 O2 Sat by Pulse 100 98 98 Oximetry 05/27/21 05/27/21 05/27/21 05:45 06:00 06:15 Pulse Rate 117 H 136 H 145 H Respiratory 39 H 35 H 39 H Rate Blood Pressure 127/75 148/94 157/100 O2 Sat by Pulse 98 97 89 Oximetry 05/27/21 05/27/21 05/27/21 06:30 06:45 07:01 Pulse Rate 153 H 156 H 139 H Respiratory 46 H 44 H 43 H Rate Blood Pressure 162/102 167/90 125/72 O2 Sat by Pulse 83 L 99 96 Oximetry 05/27/21 05/27/21 05/27/21 07:15 07:31 07:45 Pulse Rate 147 H 133 H 140 H Respiratory 47 H 41 H 44 H Rate Blood Pressure 125/72 124/69 125/97 O2 Sat by Pulse 96 99 100 Oximetry 05/27/21 08:01 Pulse Rate 142 H Respiratory 39 H Rate Blood Pressure 137/97 O2 Sat by Pulse 94 Oximetry - General Appearance General appearance: well-developed, well-nourished, intubated EENT: ATNC, other (ETT in place) Respiratory: Present: Other (coarse breath sounds) Cardiology: regular, S1S2 Gastrointestinal: normal, no absent bowel sounds, no tenderness Integumentary: no rash, warm and dry Psychiatric: cooperative - Lab 05/27/21 03:18 05/27/21 03:18 Most recent lab results ABG pH 7.393 pH Units (7.350-7.450) 05/26/21 03:16 ABG pCO2 36.6 mm Hg 05/26/21 03:16 ABG pO2 89.4 mm Hg (80.0-90.0) 05/26/21 03:16 ABG HCO3 21.8 mmol/L (20.0-26.0) 05/26/21 03:16 ABG O2 Saturation 97.2 % (95.0-99.0) 05/26/21 03:16 Calcium 8.8 mg/dL (8.4-10.2) 05/27/21 03:18 Phosphorus 3.30 mg/dL (2.5-4.5) 05/25/21 04:23 Magnesium 1.80 mg/dL (1.7-2.3) 05/25/21 04:23 Medications & Allergies - Medications Allergies/Adverse Reactions: Allergies No Known Allergies Allergy (Verified 05/26/21 10:09) Home Medications: Home Medications Medication Instructions Recorded Confirmed Last Taken Type Unobtainable 09/13/13 09/13/13 Unknown History Active Medications: Generic Name Dose Route Start Last Admin Trade Name Freq PRN Reason Stop Dose Admin Acetaminophen 650 mg 05/23/21 11:43 05/23/21 17:07 Acetaminophen 650 Mg Rect Supp [place] 650 mg Q6H PRN Administration Pain MILD(1-3)/Fever >100.5/EPSTEIN Famotidine 20 mg 05/25/21 11:00 05/26/21 22:52 Famotidine 20 Mg/2 Ml Inj IV 20 mg BID MARK Administration Fentanyl 50 mcg 05/27/21 06:37 05/27/21 07:21 Fentanyl 100 Mcg/2 Ml Inj IV 50 mcg Q10MIN PRN Administration ANALGESIA Hydromorphone HCl 0.5 mg 05/23/21 11:43 Hydromorphone 1 Mg/1 Ml Inj IV Q24H PRN Pain , Severe (7-10) Sodium Chloride 1,000 mls @ 125 mls/hr 05/23/21 14:00 05/26/21 13:16 Nacl 0.9% 1000 Ml IV 125 mls/hr DIRECT MARK Administration Dexmedetomidine HCl 400 mcg/ 104 mls @ 5.307 mls/hr 05/24/21 05:00 05/27/21 05:50 Sodium Chloride IV 0.4 mcg/kg/hr TITRATE MARK 10.614 mls/hr Titration Protocol 0.2 MCG/KG/HR NORepinephrine/NS 8 MG-250 ML 8 mg in 250 mls @ 3.75 mls/hr 05/24/21 11:00 05/27/21 08:02 Norepinephrine/Ns 8 Mg-250 Ml (Double Conc) IV 10 mcg/min TITRATE MARK 18.75 mls/hr Titration Protocol 2 MCG/MIN Fentanyl Citrate 2,000 mcg in 100 mls @ 5.103 mls/hr 05/27/21 07:00 05/27/21 08:01 Fentanyl Drip Premix IV 2 mcg/kg/hr TITR MARK 10.206 mls/hr Titration Protocol 1 MCG/KG/HR Morphine Sulfate 2 mg 05/23/21 11:43 Morphine 2 Mg/1 Ml Inj IV Q24H PRN Pain, Moderate (4-6) Ondansetron HCl 4 mg 05/23/21 11:43 Ondansetron 4 Mg/2 Ml Inj IV Q8H PRN Nausea And Vomiting Sodium Chloride 10 ml 05/23/21 22:00 05/26/21 22:52 Sodium Chloride 0.9% 10 Ml Flush Syringe IV 10 ml BID MARK Administration Sodium Chloride 10 ml 05/23/21 11:43 Sodium Chloride 0.9% 10 Ml Flush Syringe IV PRN PRN LINE FLUSH
[2021-05-27] MEDS: NORepinephrine/NS 8 MG-250 ML 8 MG/250 ML INFUS..BTL IV SCH ×2 (10:29→20:30)
[2021-05-27] MEDS: FAMOTIDINE 20 MG/2 ML INJ IV SCH ×2 (11:00→23:28)
--- NOTE | 2021-05-27 13:01 | Progress Note ---
Assessment and Plan 40 y/o male with suspected overdose and metabolic acidosis 05/27/21: Patient has severe systolic heart failure and heart rate is not contr olled, needs cards consult for medication help. 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 I know he is on pressors but is he in cardiogenic shock. Will ask [facility] to see. Guarded prognosis. may hold on extubation until cardiac regimen is optimized. 05/26/21: Attempt extubation today once all sedation is off. 05/25/21: follow up echo. Spoke with RT about ABG. States will be in system within the hour. Still pressors but on Precedex, Versed and Fent. needs to be COVID tested. BNP was >6k. Unable to diurese right now given pressor requirements but need to follow up echo. need to get patient upstairs as soon as possible. Spoke with charge nurse and they are working on this. 1. CXR shows cardiomegaly with some bibasilar changes. Could be fluid. Suggest swabbing for COVID. Check BNP and obtain 2D echo given heart size. 2. Minimal sedation to assess mental status 3. Wean pressors for MAPS >60 4. Follow up renal recs 5. No ABG prior to intubation. Echo should be a bubble study given degree of hypoxemia seen on ABG CCT 31 minutes. Subjective Date of service: 05/27/21 Interval history: Patient reintubated overnight by ED. Not sure if they spoke with my partner cardiac sonographer or not. Spoke with IMS this am and we are in agreement, will attempt precedex use and attempt extubation again. patient is covid negative. EF is 20-25%. Objective Vital Signs - 12hr 05/27/21 05/27/21 05/27/21 01:01 02:01 03:01 Pulse Rate 140 H 146 H 142 H Respiratory 40 H 43 H 32 H Rate Blood Pressure 125/70 142/87 165/105 O2 Sat by Pulse 98 88 95 Oximetry 05/27/21 05/27/21 05/27/21 03:31 03:45 04:01 Pulse Rate 130 H 128 H 126 H Respiratory 42 H 38 H 30 H Rate Blood Pressure 141/76 143/73 134/69 O2 Sat by Pulse 89 96 97 Oximetry 05/27/21 05/27/21 05/27/21 04:15 04:31 04:45 Pulse Rate 123 H 118 H 115 H Respiratory 29 H 30 H 30 H Rate Blood Pressure 139/71 118/57 110/67 O2 Sat by Pulse 98 98 98 Oximetry 05/27/21 05/27/21 05/27/21 05:01 05:15 05:31 Pulse Rate 113 H 123 H 119 H Respiratory 30 H 22 45 H Rate Blood Pressure 118/67 117/64 125/76 O2 Sat by Pulse 100 98 98 Oximetry 05/27/21 05/27/21 05/27/21 05:45 06:00 06:15 Pulse Rate 117 H 136 H 145 H Respiratory 39 H 35 H 39 H Rate Blood Pressure 127/75 148/94 157/100 O2 Sat by Pulse 98 97 89 Oximetry 05/27/21 05/27/21 05/27/21 06:30 06:45 07:01 Pulse Rate 153 H 156 H 139 H Respiratory 46 H 44 H 43 H Rate Blood Pressure 162/102 167/90 125/72 O2 Sat by Pulse 83 L 99 96 Oximetry 05/27/21 05/27/21 05/27/21 07:15 07:31 07:45 Pulse Rate 147 H 133 H 140 H Respiratory 47 H 41 H 44 H Rate Blood Pressure 125/72 124/69 125/97 O2 Sat by Pulse 96 99 100 Oximetry 05/27/21 05/27/21 08:01 10:56 Pulse Rate 142 H 105 H Respiratory 39 H Rate Blood Pressure 137/97 111/78 O2 Sat by Pulse 94 94 Oximetry CBC and BMP: 05/27/21 03:18 05/27/21 03:18 ABG, PT/INR, D-dimer: ABG ABG pH 7.393 pH Units (7.350-7.450) 05/26/21 03:16 POC ABG pCO2 41.6 mmHg (32.0-48.0) 05/24/21 03:44 ABG pCO2 36.6 mm Hg 05/26/21 03:16 POC ABG pO2 87.6 mmHg (83-108) 05/24/21 03:44 ABG pO2 89.4 mm Hg (80.0-90.0) 05/26/21 03:16 POC ABG HCO3 17.5 05/24/21 03:44 ABG O2 Saturation 97.2 % (95.0-99.0) 05/26/21 03:16 Abnormal lab findings: Abnormal Labs 05/23/21 05/23/21 05/23/21 05:55 09:38 09:38 WBC RBC 5.09 H Hct 46.2 H MCHC RDW Seg Neuts % (Manual) Lymphocytes % (Manual) Seg Neutrophils # Man Lymphocytes # (Manual) ABG pH 7.265 L ABG pO2 ABG O2 Saturation 94.6 L ABG Base Excess -4.5 L ABG Hemoglobin ABG Potassium ABG Glucose Oxyhemoglobin 92.3 L Sodium Potassium Chloride Carbon Dioxide 20 L BUN Creatinine Glucose 147 H Lactic Acid Calcium Total Bilirubin AST Total Creatine Kinase NT-Pro-B Natriuret Pep Total Protein Albumin 3.6 L Arterial Blood Glucose Urine WBC (Auto) Salicylates Acetaminophen 05/23/21 05/23/21 05/23/21 09:38 09:38 09:38 WBC RBC Hct MCHC RDW Seg Neuts % (Manual) Lymphocytes % (Manual) Seg Neutrophils # Man Lymphocytes # (Manual) ABG pH ABG pO2 ABG O2 Saturation ABG Base Excess ABG Hemoglobin ABG Potassium ABG Glucose Oxyhemoglobin Sodium Potassium Chloride Carbon Dioxide BUN Creatinine Glucose Lactic Acid Calcium Total Bilirubin AST Total Creatine Kinase NT-Pro-B Natriuret Pep 6058 H Total Protein Albumin Arterial Blood Glucose Urine WBC (Auto) Salicylates < 0.3 L Acetaminophen 5.0 L 05/23/21 05/23/21 05/24/21 12:49 Unknown 03:44 WBC RBC Hct MCHC RDW Seg Neuts % (Manual) Lymphocytes % (Manual) Seg Neutrophils # Man Lymphocytes # (Manual) ABG pH 7.208 L 7.241 L ABG pO2 52.2 L ABG O2 Saturation 93.5 L 83.7 L ABG Base Excess -6.7 L -3.7 L ABG Hemoglobin ABG Potassium 5.6 H ABG Glucose 53 L Oxyhemoglobin 91.1 L 81.1 L Sodium Potassium Chloride Carbon Dioxide BUN Creatinine Glucose Lactic Acid Calcium Total Bilirubin AST Total Creatine Kinase NT-Pro-B Natriuret Pep Total Protein Albumin Arterial Blood Glucose 53 L Urine WBC (Auto) Salicylates Acetaminophen 05/24/21 05/24/21 05/24/21 05:14 05:14 09:35 WBC 23.3 H RBC 5.23 H Hct 47.3 H MCHC RDW 15.3 H Seg Neuts % (Manual) 12.0 L Lymphocytes % (Manual) 3.0 L Seg Neutrophils # Man Lymphocytes # (Manual) 0.7 L ABG pH ABG pO2 ABG O2 Saturation ABG Base Excess ABG Hemoglobin ABG Potassium ABG Glucose Oxyhemoglobin Sodium Potassium 6.3 H* D Chloride 107.3 H Carbon Dioxide 20 L BUN 33 H Creatinine 3.5 H D Glucose 56 L Lactic Acid Calcium Total Bilirubin 1.90 H AST Total Creatine Kinase 556 H NT-Pro-B Natriuret Pep Total Protein 4.9 L D Albumin 2.8 L Arterial Blood Glucose Urine WBC (Auto) Salicylates Acetaminophen 05/24/21 05/24/21 05/25/21 19:45 Unknown 04:23 WBC 20.1 H RBC Hct MCHC 31 L RDW 15.5 H Seg Neuts % (Manual) 94.0 H Lymphocytes % (Manual) 5.0 L Seg Neutrophils # Man 18.9 H Lymphocytes # (Manual) 1.0 L ABG pH ABG pO2 ABG O2 Saturation ABG Base Excess ABG Hemoglobin ABG Potassium ABG Glucose Oxyhemoglobin Sodium Potassium 5.7 H Chloride 108.9 H Carbon Dioxide 21 L BUN 36 H Creatinine 2.6 H Glucose 108 H Lactic Acid Calcium Total Bilirubin AST Total Creatine Kinase NT-Pro-B Natriuret Pep Total Protein Albumin Arterial Blood Glucose Urine WBC (Auto) 78.0 H Salicylates Acetaminophen 05/25/21 05/25/21 05/25/21 04:23 09:14 11:46 WBC RBC Hct MCHC RDW Seg Neuts % (Manual) Lymphocytes % (Manual) Seg Neutrophils # Man Lymphocytes # (Manual) ABG pH ABG pO2 ABG O2 Saturation ABG Base Excess ABG Hemoglobin ABG Potassium ABG Glucose Oxyhemoglobin Sodium Potassium Chloride 111.4 H Carbon Dioxide 18 L BUN 33 H Creatinine 1.9 H Glucose 121 H Lactic Acid 2.40 H* 2.60 H* Calcium Total Bilirubin AST Total Creatine Kinase NT-Pro-B Natriuret Pep Total Protein Albumin Arterial Blood Glucose Urine WBC (Auto) Salicylates Acetaminophen 05/25/21 05/26/21 05/26/21 18:00 03:16 05:55 WBC 22.0 H RBC Hct MCHC RDW 15.3 H Seg Neuts % (Manual) 96.0 H Lymphocytes % (Manual) 2.0 L Seg Neutrophils # Man 21.1 H Lymphocytes # (Manual) 0.4 L ABG pH ABG pO2 208.2 H ABG O2 Saturation 99.3 H ABG Base Excess -2.7 L -2.6 L ABG Hemoglobin 13.7 L 13.0 L ABG Potassium ABG Glucose Oxyhemoglobin 94.8 L Sodium Potassium Chloride Carbon Dioxide BUN Creatinine Glucose Lactic Acid Calcium Total Bilirubin AST Total Creatine Kinase NT-Pro-B Natriuret Pep Total Protein Albumin Arterial Blood Glucose Urine WBC (Auto) Salicylates Acetaminophen 05/26/21 05/27/21 05/27/21 05:55 03:18 03:18 WBC 21.5 H RBC Hct MCHC RDW 15.5 H Seg Neuts % (Manual) 92.0 H Lymphocytes % (Manual) 5.0 L Seg Neutrophils # Man 19.8 H Lymphocytes # (Manual) 1.1 L ABG pH ABG pO2 ABG O2 Saturation ABG Base Excess ABG Hemoglobin ABG Potassium ABG Glucose Oxyhemoglobin Sodium 148 H Potassium Chloride 111.3 H 113.8 H Carbon Dioxide 21 L 20 L BUN 23 H Creatinine Glucose 102 H 103 H Lactic Acid Calcium 8.3 L Total Bilirubin 7.80 H AST 112 H Total Creatine Kinase NT-Pro-B Natriuret Pep Total Protein 5.2 L Albumin 2.9 L Arterial Blood Glucose Urine WBC (Auto) Salicylates Acetaminophen
[2021-05-27 14:23] LABS: Albumin 2.8 g/dL (3.9-5)
--- NOTE | 2021-05-27 15:12 | Ultrasound Report ---
ULTRASOUND ABDOMEN, LIMITED INDICATION / CLINICAL INFORMATION: hepatitis. COMPARISON: None available. FINDINGS: PANCREAS: Visualized portion shows no significant abnormality. AORTA: No significant abnormality. IVC: No significant abnormality. LIVER: The liver is normal in size measuring 15.8 cm .No focal hepatic lesion identified. Normal colo r Doppler blood flow within the main portal vein. GALLBLADDER: A small amount of sludge is noted within the gallbladder. No evidence of gallstones, wal l thickening, or pericholecystic fluid. BILE DUCTS: No significant abnormality. Common bile duct measures 2 mm. RIGHT KIDNEY: The right kidney measures 13.2 cm. No significant abnormality. FREE FLUID: None. ADDITIONAL FINDINGS: None. IMPRESSION: 1. Gallbladder sludge. No evidence of gallstones. 2. Otherwise, no significant abnormality. Scribed by: Manda Saha RDMS Deborah Scribed: 05/27/2021 1:08 PM I have reviewed the images, agree with this report, and edited this report as needed. Signer Name: Nacho Weeks MD Signed: 05/27/2021 3:06 PM Workstation Name: [id number]
--- NOTE | 2021-05-27 15:39 | Consultation ---
History of Present Illness Consult date: 05/27/21 Requesting physician: SRINIVASA NEIL Consult reason: congestive heart failure, tachycardia History of present illness: Patient is a 40-year-old male with a past medical history of HFrEF (EF 15%) and methamphetamine dependence who was brought to the ED after being found unresponsive on 05/13/2021. History is taken from the documentation due to patient being intubated and sedated at time of interview. Per documentation patient is stated to have overdosed on GHB. Patient was transported to [facility]. Patient was discovered to have BRYNN due to acute tubular necrosis, hyperkalemia, hypothermia, bilateral pneumonia, acute on chronic HFrEF, rhabdomyolysis. Patient is currently intubated and sedated requiring pressors. Patient is followed by [facility] in [place]. Cardiology was consulted for new CHF and tachycardia. Past History Past Medical History: heart failure, other (See HPI) Past Surgical History: No surgical history, Other (Reviewed) Social history: single. denies: smoking Family history: hypertension Medications and Allergies Allergies Allergy/AdvReac Type Severity Reaction Status Date / Time No Known Allergies Allergy Verified 05/26/21 10:09 Home Medications Medication Instructions Recorded Confirmed Last Taken Type Unobtainable 09/13/13 09/13/13 Unknown History Active Meds: Active Medications Acetaminophen (Acetaminophen 650 Mg Rect Supp) 650 mg [place] Q6H PRN PRN Reason: Pain MILD(1-3)/Fever >100.5/EPSTEIN Last Admin: 05/23/21 17:07 Dose: 650 mg Famotidine (Famotidine 20 Mg/2 Ml Inj) 20 mg IV BID MRAK Last Admin: 05/27/21 11:00 Dose: 20 mg Fentanyl (Fentanyl 100 Mcg/2 Ml Inj) 50 mcg IV Q10MIN PRN PRN Reason: ANALGESIA Last Admin: 05/27/21 07:21 Dose: 50 mcg Hydromorphone HCl (Hydromorphone 1 Mg/1 Ml Inj) 0.5 mg IV Q24H PRN PRN Reason: Pain , Severe (7-10) Sodium Chloride (Nacl 0.9% 1000 Ml) 1,000 mls @ 125 mls/hr IV DIRECT MARK Last Admin: 05/26/21 13:16 Dose: 125 mls/hr Dexmedetomidine HCl 400 mcg/ (Sodium Chloride) 104 mls @ 5.307 mls/hr IV TITRATE MARK; Protocol Last Titration: 05/27/21 15:31 Dose: 0.8 mcg/kg/hr, 21.228 mls/hr NORepinephrine/NS 8 MG-250 ML (Norepinephrine/Ns 8 Mg-250 Ml (Double Conc)) 8 mg in 250 mls @ 3.75 mls/hr IV TITRATE MARK; Protocol Last Admin: 05/27/21 10:29 Dose: 15 mcg/min, 28.125 mls/hr Fentanyl Citrate (Fentanyl Drip Premix) 2,000 mcg in 100 mls @ 5.103 mls/hr IV TITR MARK; Protocol Last Admin: 05/27/21 14:35 Dose: 4 mcg/kg/hr, 20.412 mls/hr Morphine Sulfate (Morphine 2 Mg/1 Ml Inj) 2 mg IV Q24H PRN PRN Reason: Pain, Moderate (4-6) Ondansetron HCl (Ondansetron 4 Mg/2 Ml Inj) 4 mg IV Q8H PRN PRN Reason: Nausea And Vomiting Sodium Chloride (Sodium Chloride 0.9% 10 Ml Flush Syringe) 10 ml IV BID MARK Last Admin: 05/27/21 11:00 Dose: 10 ml Sodium Chloride (Sodium Chloride 0.9% 10 Ml Flush Syringe) 10 ml IV PRN PRN PRN Reason: LINE FLUSH Review of Systems ROS unobtainable: due to endotracheal tube, due to mental status Physical Examination Vital Signs Pulse Resp BP Pulse Ox 84 27 H 130/96 87 05/23/21 09:22 05/23/21 09:22 05/23/21 09:22 05/23/21 09:22 General appearance: other (Intubated and sedated) HEENT: Positive: Normocephaly, Mucus Membranes Dry Neck: Positive: trachea midline Cardiac: Positive: Reg Rate and Rhythm Lungs: Positive: Ventilated Respirations Neuro: Positive: Other (Unable to assess due to being intubated and sedated) Abdomen: Positive: Soft Skin: Negative: Rash, Suspicious Lesions, Ulceration Extremities: Present: upper extr. pulses, edema Results 05/27/21 03:18 05/27/21 03:18 Cardiac Enzymes 05/27/21 05/27/21 Range/Units 03:18 03:18 AST 112 H 114 H (5-40) units/L CBC 05/27/21 Range/Units 03:18 WBC 21.5 H (4.5-11.0) K/mm3 RBC 4.57 (3.65-5.03) M/mm3 Hgb 13.2 (11.8-15.2) gm/dl Hct 41.1 (35.5-45.6) % Plt Count 185 (140-440) K/mm3 Comprehensive Metabolic Panel 05/27/21 05/27/21 Range/Units 03:18 03:18 Sodium 148 H (137-145) mmol/L Potassium 4.0 (3.6-5.0) mmol/L Chloride 113.8 H (98-107) mmol/L Carbon Dioxide 20 L (22-30) mmol/L BUN 19 (9-20) mg/dL Creatinine 1.0 (0.8-1.3) mg/dL Glucose 103 H (75-100) mg/dL Calcium 8.8 (8.4-10.2) mg/dL Direct Bilirubin 6.0 H (0-0.2) mg/dL Indirect Bilirubin 1.9 mg/dL AST 112 H 114 H (5-40) units/L ALT 38 38 (7-56) units/L Alkaline Phosphatase 111 126 (35-129) units/L Total Protein 5.2 L 5.2 L (6.3-8.2) g/dL Albumin 2.9 L 2.8 L (3.9-5) g/dL - Imaging and Cardiology Echo: report reviewed Cardiac cath: report reviewed EKG interpretations - Telemetry EKG Rhythm: Sinus Tachycardia - EKG Sinus rhythms and dysrhythmias: sinus tachycardia Ventricular dysrhythmias: ventricular premature com Repolarization changes or abnormalities: nonspecific abnormality, ST segment, and/or T wave Assessment and Plan Patient is a 40-year-old male with a past medical history of HFrEF (EF 15%) and methamphetamine dependence who was brought to the ED after being found unresponsive on 05/13/2021. Acute hypoxic respiratory failure-pulmonology following Drug overdose Acute on chronic HFrEF Sepsis Bilateral pneumonia BRYNN-ID following Rhabdomyolysis Echo 05/25/2021-EF 20 to 25%. Severe global hypokinesis of left ventricle. Left ventricle is moderately dilated. Doppler flow suggests impaired LV relaxation. Moderate mitral regurgitation. No pericardial effusion Cardiac cath 08/04/2020-Angiographically normal coronary arteries. This is samson cative of a nonischemic cardiomyopathy. Mildly elevated biventricular filling pressures with normal cardiac index TTE, complete 08/02/20:LVEF is 18%,Severe global LV hypokinesis. Normal LV diastolic function. LA mildly dilated. Moderate mitral regurgitation with an eccentric MR jet(s),No previous echocardiogram for comparison. Outpatient medications: Coreg 6.52 mg p.o. twice daily, Lasix 40 mg p.o. daily, lisinopril 5 mg p.o. daily Plan: EKG shows sinus tach rate 112 with PVCs, LVH and left anterior fascicular block. With abnormal T. Troponin negative x1 Patient currently sinus on monitor rate trending 90s to low 100s. Per discussion with RN patient becomes tachycardic when agitated and off sedation Will hold Lasix per nephrology recommendations to hold potentially nephrotoxic agents and continue to monitor Noted beta-blockers due to patient being on pressor, will hold RAMYA and ARB as per nephro recs Suspect tachycardia likely secondary to sepsis and pressors Patient seen in conjunction with Dr. Medina who agrees with this plan of care 30 minutes of critical care time spent in care coordination of patient - Patient Problems (1) Acute on chronic HFrEF (heart failure with reduced ejection fraction) Current Visit: Yes Status: Acute (2) PNA (pneumonia) Current Visit: Yes Status: Acute (3) Acute encephalopathy Current Visit: Yes Status: Acute (4) Acute respiratory failure Current Visit: Yes Status: Acute Qualifiers: Respiratory failure complication: hypoxia Qualified Code(s): J96.01 - Acute respiratory failure with hypoxia (5) Overdose by ingestion Current Visit: Yes Status: Acute
[2021-05-27] MEDS: SODIUM CHLORIDE 0.9% 1000 ML 1,000 ML IV SCH (16:43)
[2021-05-27 17:01] LABS: Hepatitis B Surface Antigen Non-Reactive (Negative); Hepatitis C Virus Antibody Non-Reactive (NonReactive)
[2021-05-28] MEDS: fentaNYL 100 MCG/2 ML INJ IV PRN ×2 (01:31→02:27)
[2021-05-28] MEDS: fentaNYL DRIP Premix 2,000 MCG/100 ML BAG IV SCH ×2 (03:00→08:52)
[2021-05-28] MEDS: SODIUM CHLORIDE 0.9% 1000 ML 1,000 ML IV SCH (04:09)
--- NOTE | 2021-05-28 05:38 | XRay Report ---
ABDOMEN 1 VIEW 05/28/2021 5:12 AM INDICATION / CLINICAL INFORMATION: NG tube placement verification. COMPARISON: None available. FINDINGS: TUBES / LINES: Esophagogastric tube is present in the mid stomach. BOWEL GAS PATTERN: No significant abnormality. FREE AIR / EXTRALUMINAL GAS: None. ADDITIONAL FINDINGS: No significant additional findings. IMPRESSION: 1. Esophagogastric tube in expected position. Signer Name: Junior Lunsford MD Signed: 05/28/2021 5:34 AM Workstation Name: [id number]
[2021-05-28 06:18] LABS: ABG Base Excess -3.1 mmol/L (-2.0-3.0); ABG HCO3 20.1 mmol/L (20.0-26.0); ABG Methemoglobin 0.5 % (0.0-1.5); ABG PCO2 30.7 mm Hg; ABG PH 7.433 pH Units (7.350-7.450); ABG PO2 104.7 mm Hg (80.0-90.0)
[2021-05-28] MEDS: FAMOTIDINE 20 MG/2 ML INJ IV SCH ×2 (09:39→21:41)
--- NOTE | 2021-05-28 09:56 | Progress Note ---
Assessment and Plan Impression: * Nonoliguric cute kidney injury secondary to ATN * Acute hypoxic respiratory failure --COVID 19 negative * Acute encephalopathy * Hypernatremia * Hypotension * Drug overdose * Hyperkalemia * Hypernatremia Plan: * Renal function has improved - SCr 1.0mg/dL yesterday. AM labs currently * Na is elevated on May 27 labs - will stop NS and start D5W 75ml/hour * Continue close monitoring of renal function * Medical management of electrolytes * Vent management per pulm * Pressors prn - maintain MAP>65; * Dose medications for renal function * Strict I/O - maintain christianson catheter in critically ill patient * Avoid potential nephrotoxins Subjective Date of service: 05/28/21 Interval history: Chart, vitals, labs reviewed. Patient remains intubated - ACVC Rate 30, TV 500, FiO2 40, PEEP 6 Objective - Vital Signs Vital signs: Vital Signs - 12hr 05/27/21 05/27/21 05/27/21 22:01 22:15 22:31 Temperature Pulse Rate 98 H 98 H 98 H Pulse Rate [ Left Radial] Respiratory 30 H 30 H 30 H Rate Blood Pressure 120/84 120/85 120/84 O2 Sat by Pulse 98 98 98 Oximetry 05/27/21 05/27/21 05/27/21 22:45 23:01 23:15 Temperature Pulse Rate 99 H 100 H 99 H Pulse Rate [ Left Radial] Respiratory 30 H 30 H 30 H Rate Blood Pressure 120/84 120/84 119/84 O2 Sat by Pulse 98 98 98 Oximetry 05/27/21 05/27/21 05/28/21 23:31 23:45 00:01 Temperature Pulse Rate 94 H 101 H 101 H Pulse Rate [ Left Radial] Respiratory 26 H 30 H 30 H Rate Blood Pressure 120/82 121/84 121/85 O2 Sat by Pulse 98 98 98 Oximetry 05/28/21 05/28/21 05/28/21 00:15 00:31 00:45 Temperature Pulse Rate 100 H 101 H 100 H Pulse Rate [ Left Radial] Respiratory 30 H 30 H 30 H Rate Blood Pressure 120/84 120/84 119/83 O2 Sat by Pulse 98 98 98 Oximetry 05/28/21 05/28/21 05/28/21 01:01 01:15 01:30 Temperature Pulse Rate 101 H 101 H 146 H Pulse Rate [ Left Radial] Respiratory 30 H 30 H 31 H Rate Blood Pressure 120/83 119/82 140/71 O2 Sat by Pulse 98 98 89 Oximetry 05/28/21 05/28/21 05/28/21 01:45 02:19 02:30 Temperature 101.1 F H Pulse Rate 108 H 108 H Pulse Rate [ Left Radial] Respiratory 30 H Rate Blood Pressure 121/79 121/79 O2 Sat by Pulse 99 99 Oximetry 05/28/21 05/28/21 05/28/21 03:00 05:28 08:00 Temperature 98.3 F 99.7 F H Pulse Rate Pulse Rate [ 120 H Left Radial] Respiratory 30 H Rate Blood Pressure O2 Sat by Pulse 100 Oximetry 05/28/21 08:57 Temperature Pulse Rate 115 H Pulse Rate [ Left Radial] Respiratory Rate Blood Pressure 109/78 O2 Sat by Pulse 100 Oximetry - General Appearance General appearance: well-developed, well-nourished, intubated EENT: ATNC, other (ETT in place) Respiratory: Present: Clear to Ascultation Cardiology: regular, S1S2 Gastrointestinal: normal, no tenderness, no distended Integumentary: warm and dry Musculoskeletal: other (no edema) - Lab 05/28/21 10:05 05/28/21 10:05 Most recent lab results ABG pH 7.433 pH Units (7.350-7.450) 05/28/21 05:55 ABG pCO2 30.7 mm Hg 05/28/21 05:55 ABG pO2 104.7 mm Hg (80.0-90.0) H 05/28/21 05:55 ABG HCO3 20.1 mmol/L (20.0-26.0) 05/28/21 05:55 ABG O2 Saturation 98.0 % (95.0-99.0) 05/28/21 05:55 Calcium 8.8 mg/dL (8.4-10.2) 05/27/21 03:18 Phosphorus 3.30 mg/dL (2.5-4.5) 05/25/21 04:23 Magnesium 1.80 mg/dL (1.7-2.3) 05/25/21 04:23 Medications & Allergies - Medications Allergies/Adverse Reactions: Allergies No Known Allergies Allergy (Verified 05/26/21 10:09) Home Medications: Home Medications Medication Instructions Recorded Confirmed Last Taken Type Unobtainable 09/13/13 09/13/13 Unknown History Active Medications: Generic Name Dose Route Start Last Admin Trade Name Freq PRN Reason Stop Dose Admin Acetaminophen 650 mg 05/23/21 11:43 05/23/21 17:07 Acetaminophen 650 Mg Rect Supp [place] 650 mg Q6H PRN Administration Pain MILD(1-3)/Fever >100.5/EPSTEIN Famotidine 20 mg 05/25/21 11:00 05/28/21 09:39 Famotidine 20 Mg/2 Ml Inj IV 20 mg BID MARK Administration Hydromorphone HCl 0.5 mg 05/23/21 11:43 Hydromorphone 1 Mg/1 Ml Inj IV Q24H PRN Pain , Severe (7-10) Sodium Chloride 1,000 mls @ 125 mls/hr 05/23/21 14:00 05/28/21 09:41 Nacl 0.9% 1000 Ml IV 0 mls/hr DIRECT MARK Infusion Dexmedetomidine HCl 400 mcg/ 104 mls @ 5.307 mls/hr 05/24/21 05:00 05/28/21 08:15 Sodium Chloride IV 1.2 mcg/kg/hr TITRATE MARK 31.842 mls/hr Administration Protocol 0.2 MCG/KG/HR NORepinephrine/NS 8 MG-250 ML 8 mg in 250 mls @ 3.75 mls/hr 05/24/21 11:00 05/28/21 09:41 Norepinephrine/Ns 8 Mg-250 Ml (Double Conc) IV 0 mcg/min TITRATE MARK 0 mls/hr Titration Protocol 2 MCG/MIN Fentanyl Citrate 2,000 mcg in 100 mls @ 5.103 mls/hr 05/27/21 07:00 05/28/21 08:52 Fentanyl Drip Premix IV 1 mcg/kg/hr TITR MARK 5.103 mls/hr Administration Protocol 1 MCG/KG/HR Morphine Sulfate 2 mg 05/23/21 11:43 Morphine 2 Mg/1 Ml Inj IV Q24H PRN Pain, Moderate (4-6) Ondansetron HCl 4 mg 05/23/21 11:43 Ondansetron 4 Mg/2 Ml Inj IV Q8H PRN Nausea And Vomiting Sodium Chloride 10 ml 05/23/21 22:00 05/28/21 09:39 Sodium Chloride 0.9% 10 Ml Flush Syringe IV 10 ml BID MARK Administration Sodium Chloride 10 ml 05/23/21 11:43 Sodium Chloride 0.9% 10 Ml Flush Syringe IV PRN PRN LINE FLUSH
--- NOTE | 2021-05-28 10:22 | XRay Report ---
CHEST 1 VIEW INDICATION / CLINICAL INFORMATION: Hypoxia STUDY TIME: 848 COMPARISON: 05/27/2021 FINDINGS: SUPPORT DEVICES: Endotracheal tube appears unchanged. Nasogastric tube now extends well into the stom ach. HEART / MEDIASTINUM: Stable. LUNGS / PLEURA: Bilateral mildly patchy infiltrates continue with mild increase in the right medial b ase. More focal density in the retrocardiac area appears to be worsening and may indicate worsening a telectasis and infiltrate in the left lower lobe. Increasing air bronchograms are also seen in this a pan. No pneumothorax. ADDITIONAL FINDINGS: No significant additional findings. Signer Name: Froylan Cheek MD Signed: 05/28/2021 10:17 AM Workstation Name: [id number]
--- NOTE | 2021-05-28 11:26 | Progress Note ---
Assessment and Plan 40 y/o male with suspected overdose and metabolic acidosis 05/28/21: Extubate again today once patient is more awake. Continue precedex to help with agitation. Will need swallow eval once extubated. Cards is seeing, await any new recs. spoke with them this morning and his cardiomyopathy and systolic heart failure are chronic with normal coronaries on a cath last year sometime in the [facility] [place]. 05/27/21: Get patient to ICU as soon as possible to achieve adequate sedation and mental state control to insure successful extubation. AGree with Precedex 05/26/21: Attempt extubation today once all sedation is off. 05/25/21: follow up echo. Spoke with RT about ABG. States will be in system within the hour. Still pressors but on Precedex, Versed and Fent. needs to be COVID tested. BNP was >6k. Unable to diurese right now given pressor requirements but need to follow up echo. need to get patient upstairs as soon as possible. Spoke with charge nurse and they are working on this. 1. CXR shows cardiomegaly with some bibasilar changes. Could be fluid. Suggest swabbing for COVID. Check BNP and obtain 2D echo given heart size. 2. Minimal sedation to assess mental status 3. Wean pressors for MAPS >60 4. Follow up renal recs 5. No ABG prior to intubation. Echo should be a bubble study given degree of hypoxemia seen on ABG CCT 31 minutes. Subjective Date of service: 05/28/21 Interval history: No acute events. Stopped Fent this am. On precedex. Objective Vital Signs - 12hr 05/27/21 05/27/21 05/28/21 23:31 23:45 00:01 Temperature Pulse Rate 94 H 101 H 101 H Pulse Rate [ Left Radial] Respiratory 26 H 30 H 30 H Rate Blood Pressure 120/82 121/84 121/85 O2 Sat by Pulse 98 98 98 Oximetry 05/28/21 05/28/21 05/28/21 00:15 00:31 00:45 Temperature Pulse Rate 100 H 101 H 100 H Pulse Rate [ Left Radial] Respiratory 30 H 30 H 30 H Rate Blood Pressure 120/84 120/84 119/83 O2 Sat by Pulse 98 98 98 Oximetry 05/28/21 05/28/21 05/28/21 01:01 01:15 01:30 Temperature Pulse Rate 101 H 101 H 146 H Pulse Rate [ Left Radial] Respiratory 30 H 30 H 31 H Rate Blood Pressure 120/83 119/82 140/71 O2 Sat by Pulse 98 98 89 Oximetry 05/28/21 05/28/21 05/28/21 01:45 02:01 02:11 Temperature Pulse Rate 108 H 105 H 102 H Pulse Rate [ Left Radial] Respiratory 30 H 30 H 30 H Rate Blood Pressure 121/79 116/79 116/79 O2 Sat by Pulse 99 99 99 Oximetry 05/28/21 05/28/21 05/28/21 02:19 02:20 02:30 Temperature 101.1 F H Pulse Rate 108 H 103 H Pulse Rate [ Left Radial] Respiratory 30 H Rate Blood Pressure 121/79 117/79 O2 Sat by Pulse 99 Oximetry 05/28/21 05/28/21 05/28/21 03:00 03:33 03:41 Temperature Pulse Rate 97 H 95 H Pulse Rate [ 120 H Left Radial] Respiratory 30 H 30 H 30 H Rate Blood Pressure O2 Sat by Pulse 100 99 96 Oximetry 05/28/21 05/28/21 05/28/21 03:51 04:00 04:11 Temperature Pulse Rate 97 H 92 H 87 Pulse Rate [ Left Radial] Respiratory 30 H 30 H 30 H Rate Blood Pressure 115/77 105/67 105/67 O2 Sat by Pulse 99 95 97 Oximetry 05/28/21 05/28/21 05/28/21 04:21 04:30 04:41 Temperature Pulse Rate 87 86 86 Pulse Rate [ Left Radial] Respiratory 30 H 30 H 30 H Rate Blood Pressure 102/67 100/64 100/64 O2 Sat by Pulse 97 93 98 Oximetry 05/28/21 05/28/21 05/28/21 04:50 05:00 05:10 Temperature Pulse Rate 85 93 H 85 Pulse Rate [ Left Radial] Respiratory 18 30 H 30 H Rate Blood Pressure 100/64 102/63 102/63 O2 Sat by Pulse 98 98 98 Oximetry 05/28/21 05/28/21 05/28/21 05:20 05:28 05:30 Temperature 98.3 F Pulse Rate 89 82 Pulse Rate [ Left Radial] Respiratory 30 H 30 H Rate Blood Pressure 96/62 97/60 O2 Sat by Pulse 99 97 Oximetry 05/28/21 05/28/21 05/28/21 05:40 05:50 06:00 Temperature Pulse Rate 82 81 81 Pulse Rate [ Left Radial] Respiratory 20 0 L 16 Rate Blood Pressure 97/60 96/61 98/62 O2 Sat by Pulse 99 99 96 Oximetry 05/28/21 05/28/21 05/28/21 06:10 06:20 06:30 Temperature Pulse Rate 81 81 80 Pulse Rate [ Left Radial] Respiratory 30 H 30 H 30 H Rate Blood Pressure 98/62 98/64 98/65 O2 Sat by Pulse 99 99 98 Oximetry 05/28/21 05/28/21 05/28/21 06:40 06:50 07:00 Temperature Pulse Rate 79 80 79 Pulse Rate [ Left Radial] Respiratory 30 H 30 H 22 Rate Blood Pressure 98/65 100/67 100/66 O2 Sat by Pulse 99 100 98 Oximetry 05/28/21 05/28/21 05/28/21 07:10 07:20 07:30 Temperature Pulse Rate 79 79 77 Pulse Rate [ Left Radial] Respiratory 17 25 H 30 H Rate Blood Pressure 100/66 101/68 93/58 O2 Sat by Pulse 100 100 96 Oximetry 05/28/21 05/28/21 05/28/21 07:40 07:50 08:00 Temperature 99.7 F H Pulse Rate 75 75 91 H Pulse Rate [ Left Radial] Respiratory 30 H 30 H 30 H Rate Blood Pressure 93/58 88/56 91/59 O2 Sat by Pulse 99 99 100 Oximetry 05/28/21 05/28/21 05/28/21 08:10 08:20 08:30 Temperature Pulse Rate 74 100 H 80 Pulse Rate [ Left Radial] Respiratory 30 H 30 H 30 H Rate Blood Pressure 91/59 121/86 107/63 O2 Sat by Pulse 99 100 100 Oximetry 05/28/21 05/28/21 05/28/21 08:40 08:51 08:57 Temperature Pulse Rate 80 115 H 115 H Pulse Rate [ Left Radial] Respiratory 30 H 23 Rate Blood Pressure 107/63 88/56 109/78 O2 Sat by Pulse 100 100 100 Oximetry 05/28/21 05/28/21 05/28/21 09:00 09:11 09:21 Temperature Pulse Rate 117 H 84 83 Pulse Rate [ Left Radial] Respiratory 30 H 30 H 30 H Rate Blood Pressure 109/78 109/78 104/66 O2 Sat by Pulse 100 99 99 Oximetry 05/28/21 05/28/21 05/28/21 09:30 09:41 09:51 Temperature Pulse Rate 79 75 107 H Pulse Rate [ Left Radial] Respiratory 30 H 30 H 22 Rate Blood Pressure 106/68 106/68 98/60 O2 Sat by Pulse 96 99 100 Oximetry 05/28/21 05/28/21 05/28/21 10:00 10:11 10:21 Temperature Pulse Rate 74 112 H 72 Pulse Rate [ Left Radial] Respiratory 30 H 27 H 6 L Rate Blood Pressure 93/54 93/54 96/59 O2 Sat by Pulse 96 100 97 Oximetry 05/28/21 05/28/21 05/28/21 10:30 10:41 10:51 Temperature Pulse Rate 72 71 70 Pulse Rate [ Left Radial] Respiratory 18 30 H 30 H Rate Blood Pressure 94/54 94/54 93/58 O2 Sat by Pulse 95 97 97 Oximetry 05/28/21 11:00 Temperature Pulse Rate 107 H Pulse Rate [ Left Radial] Respiratory 27 H Rate Blood Pressure 106/69 O2 Sat by Pulse 100 Oximetry CBC and BMP: 05/27/21 03:18 05/27/21 03:18 ABG, PT/INR, D-dimer: ABG ABG pH 7.433 pH Units (7.350-7.450) 05/28/21 05:55 POC ABG pCO2 41.6 mmHg (32.0-48.0) 05/24/21 03:44 ABG pCO2 30.7 mm Hg 05/28/21 05:55 POC ABG pO2 87.6 mmHg (83-108) 05/24/21 03:44 ABG pO2 104.7 mm Hg (80.0-90.0) H 05/28/21 05:55 POC ABG HCO3 17.5 05/24/21 03:44 ABG O2 Saturation 98.0 % (95.0-99.0) 05/28/21 05:55 Abnormal lab findings: Abnormal Labs 05/23/21 05/23/21 05/23/21 05:55 09:38 09:38 WBC RBC 5.09 H Hct 46.2 H MCHC RDW Seg Neuts % (Manual) Lymphocytes % (Manual) Seg Neutrophils # Man Lymphocytes # (Manual) ABG pH 7.265 L ABG pO2 ABG O2 Saturation 94.6 L ABG Base Excess -4.5 L ABG Hemoglobin ABG Potassium ABG Glucose Oxyhemoglobin 92.3 L Sodium Potassium Chloride Carbon Dioxide 20 L BUN Creatinine Glucose 147 H Lactic Acid Calcium Total Bilirubin Direct Bilirubin AST Total Creatine Kinase NT-Pro-B Natriuret Pep Total Protein Albumin 3.6 L Arterial Blood Glucose Urine WBC (Auto) Salicylates Acetaminophen 05/23/21 05/23/21 05/23/21 09:38 09:38 09:38 WBC RBC Hct MCHC RDW Seg Neuts % (Manual) Lymphocytes % (Manual) Seg Neutrophils # Man Lymphocytes # (Manual) ABG pH ABG pO2 ABG O2 Saturation ABG Base Excess ABG Hemoglobin ABG Potassium ABG Glucose Oxyhemoglobin Sodium Potassium Chloride Carbon Dioxide BUN Creatinine Glucose Lactic Acid Calcium Total Bilirubin Direct Bilirubin AST Total Creatine Kinase NT-Pro-B Natriuret Pep 6058 H Total Protein Albumin Arterial Blood Glucose Urine WBC (Auto) Salicylates < 0.3 L Acetaminophen 5.0 L 05/23/21 05/23/21 05/24/21 12:49 Unknown 03:44 WBC RBC Hct MCHC RDW Seg Neuts % (Manual) Lymphocytes % (Manual) Seg Neutrophils # Man Lymphocytes # (Manual) ABG pH 7.208 L 7.241 L ABG pO2 52.2 L ABG O2 Saturation 93.5 L 83.7 L ABG Base Excess -6.7 L -3.7 L ABG Hemoglobin ABG Potassium 5.6 H ABG Glucose 53 L Oxyhemoglobin 91.1 L 81.1 L Sodium Potassium Chloride Carbon Dioxide BUN Creatinine Glucose Lactic Acid Calcium Total Bilirubin Direct Bilirubin AST Total Creatine Kinase NT-Pro-B Natriuret Pep Total Protein Albumin Arterial Blood Glucose 53 L Urine WBC (Auto) Salicylates Acetaminophen 05/24/21 05/24/21 05/24/21 05:14 05:14 09:35 WBC 23.3 H RBC 5.23 H Hct 47.3 H MCHC RDW 15.3 H Seg Neuts % (Manual) 12.0 L Lymphocytes % (Manual) 3.0 L Seg Neutrophils # Man Lymphocytes # (Manual) 0.7 L ABG pH ABG pO2 ABG O2 Saturation ABG Base Excess ABG Hemoglobin ABG Potassium ABG Glucose Oxyhemoglobin Sodium Potassium 6.3 H* D Chloride 107.3 H Carbon Dioxide 20 L BUN 33 H Creatinine 3.5 H D Glucose 56 L Lactic Acid Calcium Total Bilirubin 1.90 H Direct Bilirubin AST Total Creatine Kinase 556 H NT-Pro-B Natriuret Pep Total Protein 4.9 L D Albumin 2.8 L Arterial Blood Glucose Urine WBC (Auto) Salicylates Acetaminophen 05/24/21 05/24/21 05/25/21 19:45 Unknown 04:23 WBC 20.1 H RBC Hct MCHC 31 L RDW 15.5 H Seg Neuts % (Manual) 94.0 H Lymphocytes % (Manual) 5.0 L Seg Neutrophils # Man 18.9 H Lymphocytes # (Manual) 1.0 L ABG pH ABG pO2 ABG O2 Saturation ABG Base Excess ABG Hemoglobin ABG Potassium ABG Glucose Oxyhemoglobin Sodium Potassium 5.7 H Chloride 108.9 H Carbon Dioxide 21 L BUN 36 H Creatinine 2.6 H Glucose 108 H Lactic Acid Calcium Total Bilirubin Direct Bilirubin AST Total Creatine Kinase NT-Pro-B Natriuret Pep Total Protein Albumin Arterial Blood Glucose Urine WBC (Auto) 78.0 H Salicylates Acetaminophen 05/25/21 05/25/21 05/25/21 04:23 09:14 11:46 WBC RBC Hct MCHC RDW Seg Neuts % (Manual) Lymphocytes % (Manual) Seg Neutrophils # Man Lymphocytes # (Manual) ABG pH ABG pO2 ABG O2 Saturation ABG Base Excess ABG Hemoglobin ABG Potassium ABG Glucose Oxyhemoglobin Sodium Potassium Chloride 111.4 H Carbon Dioxide 18 L BUN 33 H Creatinine 1.9 H Glucose 121 H Lactic Acid 2.40 H* 2.60 H* Calcium Total Bilirubin Direct Bilirubin AST Total Creatine Kinase NT-Pro-B Natriuret Pep Total Protein Albumin Arterial Blood Glucose Urine WBC (Auto) Salicylates Acetaminophen 05/25/21 05/26/21 05/26/21 18:00 03:16 05:55 WBC 22.0 H RBC Hct MCHC RDW 15.3 H Seg Neuts % (Manual) 96.0 H Lymphocytes % (Manual) 2.0 L Seg Neutrophils # Man 21.1 H Lymphocytes # (Manual) 0.4 L ABG pH ABG pO2 208.2 H ABG O2 Saturation 99.3 H ABG Base Excess -2.7 L -2.6 L ABG Hemoglobin 13.7 L 13.0 L ABG Potassium ABG Glucose Oxyhemoglobin 94.8 L Sodium Potassium Chloride Carbon Dioxide BUN Creatinine Glucose Lactic Acid Calcium Total Bilirubin Direct Bilirubin AST Total Creatine Kinase NT-Pro-B Natriuret Pep Total Protein Albumin Arterial Blood Glucose Urine WBC (Auto) Salicylates Acetaminophen 05/26/21 05/27/21 05/27/21 05:55 03:18 03:18 WBC 21.5 H RBC Hct MCHC RDW 15.5 H Seg Neuts % (Manual) 92.0 H Lymphocytes % (Manual) 5.0 L Seg Neutrophils # Man 19.8 H Lymphocytes # (Manual) 1.1 L ABG pH ABG pO2 ABG O2 Saturation ABG Base Excess ABG Hemoglobin ABG Potassium ABG Glucose Oxyhemoglobin Sodium 148 H Potassium Chloride 111.3 H 113.8 H Carbon Dioxide 21 L 20 L BUN 23 H Creatinine Glucose 102 H 103 H Lactic Acid Calcium 8.3 L Total Bilirubin 7.80 H Direct Bilirubin AST 112 H Total Creatine Kinase NT-Pro-B Natriuret Pep Total Protein 5.2 L Albumin 2.9 L Arterial Blood Glucose Urine WBC (Auto) Salicylates Acetaminophen 05/27/21 05/28/21 03:18 05:55 WBC RBC Hct MCHC RDW Seg Neuts % (Manual) Lymphocytes % (Manual) Seg Neutrophils # Man Lymphocytes # (Manual) ABG pH ABG pO2 104.7 H ABG O2 Saturation ABG Base Excess -3.1 L ABG Hemoglobin 13.2 L ABG Potassium ABG Glucose Oxyhemoglobin Sodium Potassium Chloride Carbon Dioxide BUN Creatinine Glucose Lactic Acid Calcium Total Bilirubin 7.90 H Direct Bilirubin 6.0 H AST 114 H Total Creatine Kinase NT-Pro-B Natriuret Pep Total Protein 5.2 L Albumin 2.8 L Arterial Blood Glucose Urine WBC (Auto) Salicylates Acetaminophen
[2021-05-28 11:29] LABS: Basophils # (Auto) 0.1 K/mm3 (0.0-0.1); Basophils % (Auto) 0.5 % (0.0-1.8); Eosinophils # (Auto) 0.1 K/mm3 (0.0-0.4); Eosinophils % (Auto) 0.8 % (0.0-4.3); Hematocrit 40.2 % (35.5-45.6); Hemoglobin 12.8 gm/dl (11.8-15.2); Lymphocytes # (Auto) 1.3 K/mm3 (1.2-5.4); Lymphocytes % (Auto) 11.2 % (13.4-35.0); Mean Corpuscular HGB Conc 32 % (32-34); Mean Corpuscular Volume 89 fl (84-94); Monocytes % (Auto) 8.6 % (0.0-7.3); Platelet Count 176 K/mm3 (140-440); Red Blood Count 4.51 M/mm3 (3.65-5.03); Red Cell Distribution Width 15.5 % (13.2-15.2)
--- NOTE | 2021-05-28 11:38 | Progress Note ---
Assessment and Plan Assessment and plan: This is a 40-year-old male with known history of HFrEF, methamphetamine dependence, and nicotine dependence admitted for drug overdose and acute metabolic encephalopathy. Patient went into respiratory failure and was intubated requiring ventilatory support. Hospital Course to date: 05/25/2021: Worsening interstitial infiltrates. unclear if this is a developing pneumonia from aspiration/volume overload. Empiric abx coverage. ECHO with bubble study ordered. Placed on iv abx. kidney function improving. 05/26/2021: Tachycardic on levo gtt, advised RN to titrate down as long as MAP > 65. HR improved on my follow up encounter. PCCM titrating vent down. Renal function improving....Cr now 1.3. 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 05/27/2021: Extubated yesterday however in respiratory distress, re-intubated. Patient has severe systolic heart failure. Cardiology consulted for severe systolic heart failure. Will need to discuss optimal strategy regarding diuresis. 05/28: Patient remains on the vent. Febrile overnight, no longer on IV abx, leukocytosis improved, will panculture patient for now hold off on IV Abx. D/W CCM plan to wean sedation, depends on patient's mental status possible extubation today. Patient with low EF 20 to 25%, IVF D/nickolas. FWF for hyperna trenia, repeat lab in the am. Assessment and Plan #Acute hypoxic respiratory failure #Bilateral Pneumonia #Possible Aspiration - Intially Intubated in the ED on 05/23 for airway protection - Extubated and reintubated on 05/27 for respiratory distress - C/f possible aspiration vs fluid overlaod from IVF boluses received since admit - Vent Setting:CMV-40%,6,30,500 - This am ABG noted - CCM consulted, appreciate recommendations - Continue Nebs per CCM - VAP bundle addressed - Aspiration precaution HOB above 30 - Daily SBT and SAT trials as tolerated - Daily ABG and CXR - Continue SPO2 monitoring for SPO2 goal above 92%\ #HFrEF #Cardiomegaly - Cardiology on consult, appreciated recommendations - 05/25/2021: Echo- EF 20 to 25%. Severe global hypokinesis of left ventricle. Left ventricle is moderately dilated. Doppler flow suggests impaired LV relaxation. Moderate mitral regurgitation. No pericardial effusion - 08/04/2020: Cardiac cath- Angiographically normal coronary arteries. This is indicative of a nonischemic cardiomyopathy. Mildly elevated biventricular filling pressures with normal cardiac index - 08/02/2020: Echo- EF 18%,Severe global LV hypokinesis. Normal LV diastolic function. LA mildly dilated. Moderate mitral regurgitation with an eccentric MR jet(s),No previous echocardiogram for comparison. - Could be volume overloaded from fluid admin early in admission - Patient on low dose pressors this am, BP still marginal - Will follow cardiology/nephro recs re: diuresis - Continue blood pressure monitor per protocol - Maintain MAP above 65 #Acute Toxic Metabolic Encephalopathy #Overdose by Ingestion #H/o Polysubstance Abuse - amphetamines in tox screen - Patient remains too agitated for sedation wean - Plan for possible SAT for possible extubation today - Titrate sedation for RASS goal of 0 to -1 - Avoid benzodiazepine to reduce the possibility of delirium - Prn analgesia for CPOT greater than 3 - Maintenance of sleep-wake cycle #Acute Kidney Injury due to Acute Tubular Necrosis #Hypernatremia - Cr: 3.5 on 03/24, baseline 0.9. suspect dehydration vs toxic exposure vs rhabdo - Renal function improved with IV hydration - High Na this am, NS gtt D/nickolas - FWF added X1day, given patient severe systolic heart failure minimized fluid intake - Nephrology on consult, appreciated recommendation - Strict intake and output - Daily weight - Avoid nephrotoxic medications; Renally dose medications - Monitor and replace electrolytes as needed - Trend BMP #Sepsis POA #Bilateral Pneumonia #Lactic Acidosis - febrile, elevated lactic, source likely pulmonary - COVID PCR neg - UA is negative - Blood culture, Urine culture, and sputum culture pending - Completed 3days of IV Abx - CRP 34.80, procal pending - Will hold off on IV Abx for now - Continue to F/U on B.cult - Daily CBC monitor - Consider ID consult if with persistent fever or/and if leukocytosis reoccur #DVT Prophylaxis - AC- Lovenox SuQ - SCDs to bilateral lower extremities while in bed The high probability of a clinically significant, sudden or life threatening deterioration of the [multiple] system(s) required my full and direct attention, intervention and personal management. The aggregate critical care time was [60] minutes. This time is in addition to time spent performing reported procedures but includes the following: [x] Data Review and interpretation [x] Patient assessment and monitoring of vital signs [x] Documentation [x] Medication orders and management Disposition Plan: ICU Total Time Spent with Patient (Minutes): 60 History Interval history: Patient seen and examined at the bedside. Intubated and sedated, on low dose levophed gtt this am and IVF. Per RN patient gets agitated and tachycardic, HR in the 140s when awake. Otherwise INDERJIT overnight Hospitalist Physical - Constitutional Vitals: Temp Pulse Resp BP Pulse Ox 99.7 F H 107 H 27 H 106/69 100 05/28/21 08:00 05/28/21 11:00 05/28/21 11:00 05/28/21 11:00 05/28/21 11:00 General appearance: Present: no acute distress, obese, other (Intubated and sedated) - EENT Eyes: Present: PERRL - Respiratory Respiratory effort: normal Respiratory: bilateral: rhonchi - Cardiovascular Rhythm: regular Heart Sounds: Present: S1 & S2 - Extremities Extremities: no ischemia, pulses intact, pulses symmetrical Extremity abnormal: edema - Peripheral Assessment Generalized Edema Type: Non-pitting Edema Degree: 1+ Capillary Refill: < 3 seconds Skin Temperature: Warm Peripheral Pulses: within normal limits - Abdominal General gastrointestinal: deferred, soft, non-distended, normal bowel sounds - Integumentary Integumentary: Present: warm, dry - Psychiatric Psychiatric: other (Intubated and sedated) - Neurologic Neurologic: other (Intubated and sedated) - Allied Health Allied health notes reviewed: nursing HEART Score - HEART Score Troponin: Troponin T < 0.010 ng/mL (0.00-0.029) 05/23/21 09:38 Results - Labs CBC & Chem 7: 05/28/21 10:05 05/28/21 10:05 Labs: Laboratory Last Values WBC 11.4 K/mm3 (4.5-11.0) H 05/28/21 10:05 RBC 4.51 M/mm3 (3.65-5.03) 05/28/21 10:05 Hgb 12.8 gm/dl (11.8-15.2) 05/28/21 10:05 Hct 40.2 % (35.5-45.6) 05/28/21 10:05 MCV 89 fl (84-94) 05/28/21 10:05 MCH 28 pg (28-32) 05/28/21 10:05 MCHC 32 % (32-34) 05/28/21 10:05 RDW 15.5 % (13.2-15.2) H 05/28/21 10:05 Plt Count 176 K/mm3 (140-440) 05/28/21 10:05 Lymph % (Auto) 11.2 % (13.4-35.0) L 05/28/21 10:05 [place] % (Auto) 8.6 % (0.0-7.3) H 05/28/21 10:05 Eos % (Auto) 0.8 % (0.0-4.3) 05/28/21 10:05 Baso % (Auto) 0.5 % (0.0-1.8) 05/28/21 10:05 Lymph # (Auto) 1.3 K/mm3 (1.2-5.4) 05/28/21 10:05 [place] # (Auto) 1.0 K/mm3 (0.0-0.8) H 05/28/21 10:05 Eos # (Auto) 0.1 K/mm3 (0.0-0.4) 05/28/21 10:05 Baso # (Auto) 0.1 K/mm3 (0.0-0.1) 05/28/21 10:05 Add Manual Diff Complete 05/27/21 03:18 Total Counted 100 05/27/21 03:18 Seg Neutrophils % 78.9 % (40.0-70.0) H 05/28/21 10:05 Seg Neuts % (Manual) 92.0 % (40.0-70.0) H 05/27/21 03:18 Band Neutrophils % 0 % 05/27/21 03:18 Lymphocytes % (Manual) 5.0 % (13.4-35.0) L 05/27/21 03:18 Reactive Lymphs % (Man) 0 % 05/27/21 03:18 Monocytes % (Manual) 3.0 % (0.0-7.3) 05/27/21 03:18 Eosinophils % (Manual) 0 % (0.0-4.3) 05/27/21 03:18 Basophils % (Manual) 0 % (0.0-1.8) 05/27/21 03:18 Metamyelocytes % 0 % 05/27/21 03:18 Myelocytes % 0 % 05/27/21 03:18 Promyelocytes % 0 % 05/27/21 03:18 Blast Cells % 0 % 05/27/21 03:18 Nucleated RBC % Not Reportable 05/27/21 03:18 Seg Neutrophils # 9.0 K/mm3 (1.8-7.7) H 05/28/21 10:05 Seg Neutrophils # Man 19.8 K/mm3 (1.8-7.7) H 05/27/21 03:18 Band Neutrophils # 0.0 K/mm3 05/27/21 03:18 Lymphocytes # (Manual) 1.1 K/mm3 (1.2-5.4) L 05/27/21 03:18 Abs React Lymphs (Man) 0.0 K/mm3 05/27/21 03:18 Monocytes # (Manual) 0.6 K/mm3 (0.0-0.8) 05/27/21 03:18 Eosinophils # (Manual) 0.0 K/mm3 (0.0-0.4) 05/27/21 03:18 Basophils # (Manual) 0.0 K/mm3 (0.0-0.1) 05/27/21 03:18 Metamyelocytes # 0.0 K/mm3 05/27/21 03:18 Myelocytes # 0.0 K/mm3 05/27/21 03:18 Promyelocytes # 0.0 K/mm3 05/27/21 03:18 Blast Cells # 0.0 K/mm3 05/27/21 03:18 WBC Morphology Not Reportable 05/27/21 03:18 Hypersegmented Neuts Not Reportable 05/27/21 03:18 Hyposegmented Neuts Not Reportable 05/27/21 03:18 Hypogranular Neuts Not Reportable 05/27/21 03:18 Smudge Cells Not Reportable 05/27/21 03:18 Toxic Granulation Not Reportable 05/27/21 03:18 Toxic Vacuolation Not Reportable 05/27/21 03:18 Dohle Bodies Not Reportable 05/27/21 03:18 Pelger-Huet Anomaly Not Reportable 05/27/21 03:18 Glenn Rods Not Reportable 05/27/21 03:18 Platelet Estimate Consistent w auto 05/27/21 03:18 Clumped Platelets Not Reportable 05/27/21 03:18 Plt Clumps, EDTA Not Reportable 05/27/21 03:18 Large Platelets Not Reportable 05/27/21 03:18 Giant Platelets Not Reportable 05/27/21 03:18 Platelet Satelliting Not Reportable 05/27/21 03:18 Plt Morphology Comment Not Reportable 05/27/21 03:18 RBC Morphology Normal 05/27/21 03:18 Dimorphic RBCs Not Reportable 05/27/21 03:18 Polychromasia Not Reportable 05/27/21 03:18 Hypochromasia Not Reportable 05/27/21 03:18 Poikilocytosis Not Reportable 05/27/21 03:18 Anisocytosis Not Reportable 05/27/21 03:18 Microcytosis Not Reportable 05/27/21 03:18 Macrocytosis Not Reportable 05/27/21 03:18 Spherocytes Not Reportable 05/27/21 03:18 Pappenheimer Bodies Not Reportable 05/27/21 03:18 Sickle Cells Not Reportable 05/27/21 03:18 Target Cells Not Reportable 05/27/21 03:18 Tear Drop Cells Not Reportable 05/27/21 03:18 Ovalocytes Not Reportable 05/27/21 03:18 Helmet Cells Not Reportable 05/27/21 03:18 [place] Bodies Not Reportable 05/27/21 03:18 [place] Rings Not Reportable 05/27/21 03:18 Giorgio Cells Not Reportable 05/27/21 03:18 Bite Cells Not Reportable 05/27/21 03:18 Crenated Cell Not Reportable 05/27/21 03:18 Elliptocytes Not Reportable 05/27/21 03:18 Acanthocytes (Spur) Not Reportable 05/27/21 03:18 Rouleaux Not Reportable 05/27/21 03:18 Hemoglobin C Crystals Not Reportable 05/27/21 03:18 Schistocytes Not Reportable 05/27/21 03:18 Malaria parasites Not Reportable 05/27/21 03:18 Frandy Bodies Not Reportable 05/27/21 03:18 Hem Pathologist Commnt No 05/27/21 03:18 ABG pH 7.433 pH Units (7.350-7.450) 05/28/21 05:55 POC ABG pCO2 41.6 mmHg (32.0-48.0) 05/24/21 03:44 ABG pCO2 30.7 mm Hg 05/28/21 05:55 POC ABG pO2 87.6 mmHg (83-108) 05/24/21 03:44 ABG pO2 104.7 mm Hg (80.0-90.0) H 05/28/21 05:55 POC ABG HCO3 17.5 05/24/21 03:44 ABG HCO3 20.1 mmol/L (20.0-26.0) 05/28/21 05:55 ABG O2 Saturation 98.0 % (95.0-99.0) 05/28/21 05:55 ABG O2 Content 17.8 (0.0-44) 05/28/21 05:55 POC ABG Base Excess -9.5 05/24/21 03:44 ABG Base Excess -3.1 mmol/L (-2.0-3.0) L 05/28/21 05:55 ABG Hemoglobin 13.2 gm/dl (14.0-18.0) L 05/28/21 05:55 ABG Oxyhemoglobin 94.8 (94-98) 05/24/21 03:44 ABG Carboxyhemoglobin 2.1 % (0.0-5.0) 05/28/21 05:55 ABG Methemoglobin 0.5 % (0.0-1.5) 05/28/21 05:55 ABG Sodium 137.9 mmol/L (136.0-145.0) 05/24/21 03:44 ABG Potassium 5.6 mmol/L (3.40-4.50) H 05/24/21 03:44 ABG Chloride 105.0 mmol/L (98-107) 05/24/21 03:44 ABG Glucose 53 mg/dL (65-95) L 05/24/21 03:44 Oxyhemoglobin 95.4 % (95.0-99.0) 05/28/21 05:55 Carboxyhemoglobin 0.8 (0.5-1.5) 05/24/21 03:44 FiO2 50 % 05/28/21 05:55 FiO2 % 100.0 05/24/21 03:44 Sodium 148 mmol/L (137-145) H 05/27/21 03:18 Potassium 4.0 mmol/L (3.6-5.0) 05/27/21 03:18 Chloride 113.8 mmol/L (98-107) H 05/27/21 03:18 Carbon Dioxide 20 mmol/L (22-30) L 05/27/21 03:18 Anion Gap 18 mmol/L 05/27/21 03:18 BUN 19 mg/dL (9-20) 05/27/21 03:18 Creatinine 1.0 mg/dL (0.8-1.3) 05/27/21 03:18 Estimated GFR > 60 ml/min 05/27/21 03:18 BUN/Creatinine Ratio 19 % 05/27/21 03:18 Glucose 103 mg/dL (75-100) H 05/27/21 03:18 POC Glucose 97 mg/dL (70-105) 05/24/21 09:54 Lactic Acid 2.60 mmol/L (0.7-2.0) H* 05/25/21 11:46 Calcium 8.8 mg/dL (8.4-10.2) 05/27/21 03:18 Phosphorus 3.30 mg/dL (2.5-4.5) 05/25/21 04:23 Magnesium 1.80 mg/dL (1.7-2.3) 05/25/21 04:23 Total Bilirubin 7.80 mg/dL (0.1-1.2) H 05/27/21 03:18 Total Bilirubin 7.90 mg/dL (0.1-1.2) H 05/27/21 03:18 Direct Bilirubin 6.0 mg/dL (0-0.2) H 05/27/21 03:18 Indirect Bilirubin 1.9 mg/dL 05/27/21 03:18 AST 112 units/L (5-40) H 05/27/21 03:18 AST 114 units/L (5-40) H 05/27/21 03:18 ALT 38 units/L (7-56) 05/27/21 03:18 ALT 38 units/L (7-56) 05/27/21 03:18 Alkaline Phosphatase 111 units/L (35-129) 05/27/21 03:18 Alkaline Phosphatase 126 units/L (35-129) 05/27/21 03:18 Total Creatine Kinase 556 units/L (55-170) H 05/24/21 09:35 Troponin T < 0.010 ng/mL (0.00-0.029) 05/23/21 09:38 NT-Pro-B Natriuret Pep 6058 pg/mL (0-450) H 05/23/21 09:38 Total Protein 5.2 g/dL (6.3-8.2) L 05/27/21 03:18 Total Protein 5.2 g/dL (6.3-8.2) L 05/27/21 03:18 Albumin 2.8 g/dL (3.9-5) L 05/27/21 03:18 Albumin 2.9 g/dL (3.9-5) L 05/27/21 03:18 Albumin/Globulin Ratio 1.2 % 05/27/21 03:18 Albumin/Globulin Ratio 1.3 % 05/27/21 03:18 Arterial Blood Glucose 53 mg/dL (65-95) L 05/24/21 03:44 Arterial Blood Ionized Calcium 4.6 mg/dL (4.6-5.3) 05/24/21 03:44 Urine Color Sherri (Yellow) 05/24/21 Unknown Urine Turbidity Cloudy (Clear) 05/24/21 Unknown Urine pH 5.0 (5.0-7.0) 05/24/21 Unknown Ur Specific [place] 1.015 (1.003-1.030) 05/24/21 Unknown Urine Protein 100 mg/dl mg/dL (Negative) 05/24/21 Unknown Urine Glucose (UA) Neg mg/dL (Negative) 05/24/21 Unknown Urine Ketones Neg mg/dL (Negative) 05/24/21 Unknown Urine Blood Lg (Negative) 05/24/21 Unknown Urine Nitrite Neg (Negative) 05/24/21 Unknown Urine Bilirubin Neg (Negative) 05/24/21 Unknown Urine Urobilinogen 4.0 mg/dL (<2.0) 05/24/21 Unknown Ur Leukocyte Esterase Mod (Negative) 05/24/21 Unknown Urine WBC (Auto) 78.0 /HPF (0.0-6.0) H 05/24/21 Unknown Urine RBC (Auto) 86.0 /HPF (0.0-6.0) 05/24/21 Unknown U Epithel Cells (Auto) 2.0 /HPF (0-13.0) 05/24/21 Unknown Urine Mucus Few /HPF 05/24/21 Unknown Urine Yeast (Budding) 1+ /HPF 05/24/21 Unknown Salicylates < 0.3 mg/dL (2.8-20.0) L 05/23/21 09:38 Urine Opiates Screen Negative 05/23/21 09:41 Urine Methadone Screen Negative 05/23/21 09:41 Acetaminophen 5.0 ug/mL (10.0-30.0) L 05/23/21 09:38 Ur Barbiturates Screen Negative 05/23/21 09:41 Ur Phencyclidine Scrn Negative 05/23/21 09:41 Ur Amphetamines Screen Positive 05/23/21 09:41 U Benzodiazepines Scrn Negative 05/23/21 09:41 Urine Cocaine Screen Negative 05/23/21 09:41 U Marijuana (THC) Screen Negative 05/23/21 09:41 Drugs of Abuse Note Disclamer 05/23/21 09:41 Coronavirus (PCR) Negative (Negative) 05/26/21 08:14 Hepatitis A IgM Ab Non-reactive (NonReactive) 05/27/21 16:00 Hep Bs Antigen Non-reactive (Negative) 05/27/21 16:00 Hep B Core IgM Ab Non-reactive (NonReactive) 05/27/21 16:00 Hepatitis C Antibody Non-reactive (NonReactive) 05/27/21 16:00 [place]/IV: Voiding Method Indwelling Catheter Active Medications - Current Medications Current Medications: Generic Name Dose Route Start Last Admin Trade Name Freq PRN Reason Stop Dose Admin Acetaminophen 650 mg 05/23/21 11:43 05/23/21 17:07 Acetaminophen [address] 650 mg Q6H PRN Administration Pain MILD(1-3)/Fever >100.5/EPSTEIN Famotidine 20 mg 05/25/21 11:00 05/28/21 09:39 Famotidine 20 Mg/2 Ml Inj IV 20 mg BID MARK Administration Hydromorphone HCl 0.5 mg 05/23/21 11:43 Hydromorphone 1 Mg/1 Ml Inj IV Q24H PRN Pain , Severe (7-10) Dexmedetomidine HCl 400 mcg/ 104 mls @ 5.307 mls/hr 05/24/21 05:00 05/28/21 10:12 Sodium Chloride IV 1 mcg/kg/hr TITRATE MARK 26.535 mls/hr Titration Protocol 0.2 MCG/KG/HR NORepinephrine/NS 8 MG-250 ML 8 mg in 250 mls @ 3.75 mls/hr 05/24/21 11:00 05/28/21 09:41 Norepinephrine/Ns 8 Mg-250 Ml (Double Conc) IV 0 mcg/min TITRATE MARK 0 mls/hr Titration Protocol 2 MCG/MIN Fentanyl Citrate 2,000 mcg in 100 mls @ 5.103 mls/hr 05/27/21 07:00 05/28/21 10:10 Fentanyl Drip Premix IV 0 mcg/kg/hr TITR MARK 0 mls/hr Titration Protocol 1 MCG/KG/HR Dextrose 1,000 mls @ 75 mls/hr 05/28/21 11:00 D5w IV DIRECT MARK Morphine Sulfate 2 mg 05/23/21 11:43 Morphine 2 Mg/1 Ml Inj IV Q24H PRN Pain, Moderate (4-6) Ondansetron HCl 4 mg 05/23/21 11:43 Ondansetron 4 Mg/2 Ml Inj IV Q8H PRN Nausea And Vomiting Sodium Chloride 10 ml 05/23/21 22:00 05/28/21 09:39 Sodium Chloride 0.9% 10 Ml Flush Syringe IV 10 ml BID MARK Administration Sodium Chloride 10 ml 05/23/21 11:43 Sodium Chloride 0.9% 10 Ml Flush Syringe IV PRN PRN LINE FLUSH
[2021-05-28 11:54] LABS: BUN/Creatinine Ratio 20; Blood Urea Nitrogen 16 mg/dL (9-20); Calcium 8.9 mg/dL (8.4-10.2); Hemolysis Index 7
[2021-05-28 12:49] LABS: Bacteria,Urine 1+ /HPF (Negative); Bilirubin,Urine MOD (Negative); Blood,Urine MOD (Negative); Color,Urine Amber (Yellow); Mucus,Urine FEW /HPF
[2021-05-28 12:53] LABS: Ictotest,Urine Positive (Negative)
[2021-05-28] MEDS: METOPROLOL TARTRATE 25 MG TAB PO SCH ×2 (14:03→21:41)
[2021-05-28] MEDS ORDERED: ENOXAPARIN 30 MG/0.3 ML INJ SUB-Q SCH (15:00)
--- NOTE | 2021-05-28 15:07 | Progress Note ---
Assessment and Plan Patient is a 40-year-old male with a past medical history of HFrEF (EF 15%) and methamphetamine dependence who was brought to the ED after being found unresponsive on 05/13/2021. Acute hypoxic respiratory failure-pulmonology following Drug overdose Acute on chronic HFrEF Sepsis Bilateral pneumonia BRYNN-ID following Rhabdomyolysis Echo 05/25/2021-EF 20 to 25%. Severe global hypokinesis of left ventricle. Left ventricle is moderately dilated. Doppler flow suggests impaired LV relaxation. Moderate mitral regurgitation. No pericardial effusion Cardiac cath 08/04/2020-Angiographically normal coronary arteries. This is indicative of a nonischemic cardiomyopathy. Mildly elevated biventricular filling pressures with normal cardiac index TTE, complete 08/02/20:LVEF is 18%,Severe global LV hypokinesis. Normal LV diastolic function. LA mildly dilated. Moderate mitral regurgitation with an eccentric MR jet(s),No previous echocardiogram for comparison. Outpatient medications: Coreg 6.52 mg p.o. twice daily, Lasix 40 mg p.o. daily, lisinopril 5 mg p.o. daily Plan: Will hold Lasix per nephrology recommendations to hold potentially nephrotoxic agents and continue to monitor Will hold RAMYA and ARB as per nephro recs Suspect tachycardia likely secondary to sepsis and pressors Patient no longer on pressors. Will initiate low-dose beta-woo. Metoprolol 12.5 mg p.o. twice daily Patient seen in conjunction with Dr. Medina who agrees with this plan of care 30 minutes of critical care time spent in care coordination of patient - Patient Problems (1) Acute on chronic HFrEF (heart failure with reduced ejection fraction) Current Visit: Yes Status: Acute (2) PNA (pneumonia) Current Visit: Yes Status: Acute (3) Acute encephalopathy Current Visit: Yes Status: Acute (4) Acute respiratory failure Current Visit: Yes Status: Acute Qualifiers: Respiratory failure complication: hypoxia Qualified Code(s): J96.01 - Acute respiratory failure with hypoxia (5) Overdose by ingestion Current Visit: Yes Status: Acute Subjective Date of service: 05/28/21 Principal diagnosis: Overdose Interval history: Patient remains intubated and sedated. Patient been transferred to ICU Currently sinus 71 on Objective Vital Signs Temp Pulse Pulse Resp BP BP Pulse Ox 05/28/21 14:03 78 99/70 05/28/21 14:01 94 H 30 H 99/70 100 05/28/21 13:51 65 30 H 94/57 97 05/28/21 13:41 66 30 H 92/56 97 05/28/21 13:30 66 26 H 92/56 97 05/28/21 13:21 67 30 H 93/56 98 05/28/21 13:11 68 30 H 96/58 97 05/28/21 13:00 69 17 96/58 96 05/28/21 12:51 70 19 96/58 98 05/28/21 12:41 85 30 H 92/58 100 05/28/21 12:31 70 30 H 92/58 99 05/28/21 12:21 119 H 12 112/88 05/28/21 12:14 128 H 112/88 100 05/28/21 12:11 67 17 96/60 97 05/28/21 12:00 68 14 96/60 94 05/28/21 11:51 67 13 97/61 97 05/28/21 11:41 69 27 H 100/61 97 05/28/21 11:30 70 26 H 100/61 94 05/28/21 11:21 71 30 H 100/64 96 05/28/21 11:11 117 H 32 H 106/69 05/28/21 11:00 107 H 27 H 106/69 100 05/28/21 10:51 70 30 H 93/58 97 05/28/21 10:41 71 30 H 94/54 97 05/28/21 10:30 72 18 94/54 95 05/28/21 10:21 72 6 L 96/59 97 05/28/21 10:11 112 H 27 H 93/54 100 05/28/21 10:00 74 30 H 93/54 96 05/28/21 09:51 107 H 22 98/60 100 05/28/21 09:41 75 30 H 106/68 99 05/28/21 09:30 79 30 H 106/68 96 05/28/21 09:21 83 30 H 104/66 99 05/28/21 09:11 84 30 H 109/78 99 05/28/21 09:00 117 H 30 H 109/78 100 05/28/21 08:57 115 H 109/78 100 05/28/21 08:51 115 H 23 88/56 100 05/28/21 08:40 80 30 H 107/63 100 05/28/21 08:30 80 30 H 107/63 100 05/28/21 08:20 100 H 30 H 121/86 100 05/28/21 08:10 74 30 H 91/59 99 05/28/21 08:00 99.7 F H 91 H 30 H 91/59 100 05/28/21 07:50 75 30 H 88/56 99 05/28/21 07:40 75 30 H 93/58 99 05/28/21 07:30 77 30 H 93/58 96 05/28/21 07:20 79 25 H 101/68 100 05/28/21 07:10 79 17 100/66 100 05/28/21 07:00 79 22 100/66 98 05/28/21 06:50 80 30 H 100/67 100 05/28/21 06:40 79 30 H 98/65 99 05/28/21 06:30 80 30 H 98/65 98 05/28/21 06:20 81 30 H 98/64 99 05/28/21 06:10 81 30 H 98/62 99 05/28/21 06:00 81 16 98/62 96 05/28/21 05:50 81 0 L 96/61 99 05/28/21 05:40 82 20 97/60 99 05/28/21 05:30 82 30 H 97/60 97 05/28/21 05:28 98.3 F 05/28/21 05:20 89 30 H 96/62 99 05/28/21 05:10 85 30 H 102/63 98 05/28/21 05:00 93 H 30 H 102/63 98 05/28/21 04:50 85 18 100/64 98 05/28/21 04:41 86 30 H 100/64 98 05/28/21 04:30 86 30 H 100/64 93 05/28/21 04:21 87 30 H 102/67 97 05/28/21 04:11 87 30 H 105/67 97 05/28/21 04:00 92 H 30 H 105/67 95 05/28/21 03:51 97 H 30 H 115/77 99 05/28/21 03:41 95 H 30 H 96 05/28/21 03:33 97 H 30 H 99 05/28/21 03:00 120 H 30 H 100 05/28/21 02:30 101.1 F H 05/28/21 02:20 103 H 30 H 117/79 05/28/21 02:19 108 H 121/79 99 05/28/21 02:11 102 H 30 H 116/79 99 05/28/21 02:01 105 H 30 H 116/79 99 05/28/21 01:45 108 H 30 H 121/79 99 05/28/21 01:30 146 H 31 H 140/71 89 05/28/21 01:15 101 H 30 H 119/82 98 05/28/21 01:01 101 H 30 H 120/83 98 05/28/21 00:45 100 H 30 H 119/83 98 05/28/21 00:31 101 H 30 H 120/84 98 05/28/21 00:15 100 H 30 H 120/84 98 05/28/21 00:01 101 H 30 H 121/85 98 05/27/21 23:45 101 H 30 H 121/84 98 05/27/21 23:31 94 H 26 H 120/82 98 05/27/21 23:15 99 H 30 H 119/84 98 05/27/21 23:01 100 H 30 H 120/84 98 05/27/21 22:45 99 H 30 H 120/84 98 05/27/21 22:31 98 H 30 H 120/84 98 05/27/21 22:15 98 H 30 H 120/85 98 05/27/21 22:01 98 H 30 H 120/84 98 05/27/21 21:45 98 H 30 H 120/84 98 05/27/21 21:31 98 H 30 H 120/84 97 05/27/21 21:15 98 H 30 H 120/84 98 05/27/21 21:01 98 H 30 H 120/84 98 05/27/21 20:45 97 H 30 H 120/84 97 05/27/21 20:31 95 H 30 H 120/84 98 05/27/21 20:15 97 H 30 H 120/84 98 05/27/21 20:01 96 H 30 H 120/84 98 05/27/21 20:00 98 H 120/84 98 05/27/21 19:45 97 H 30 H 120/84 98 05/27/21 19:33 100.3 F H 97 H 24 120/84 98 05/27/21 19:31 97 H 30 H 120/84 97 05/27/21 19:19 97 H 30 H 121/85 98 05/27/21 19:15 96 H 30 H 121/85 98 05/27/21 19:01 96 H 30 H 121/84 98 05/27/21 18:45 96 H 30 H 119/84 98 05/27/21 18:31 96 H 30 H 119/84 98 05/27/21 18:15 97 H 30 H 119/84 98 05/27/21 18:01 97 H 30 H 121/84 98 05/27/21 17:45 98 H 30 H 120/86 98 05/27/21 17:31 98 H 30 H 121/87 98 05/27/21 17:15 97 H 30 H 121/86 98 05/27/21 17:01 98 H 30 H 120/87 98 05/27/21 16:45 98 H 13 121/89 98 05/27/21 16:31 98 H 20 119/85 98 05/27/21 16:15 98 H 30 H 121/87 98 05/27/21 16:01 99 H 19 119/86 96 05/27/21 16:00 98 H 121/87 99 05/27/21 15:45 98 H 21 119/86 98 05/27/21 15:31 99 H 22 119/87 98 05/27/21 15:15 99 H 30 H 117/85 98 - Physical Examination General: Other (Debated and sedated) HEENT: Positive: Normocephaly, Mucus Membranes Dry Neck: Positive: trachea midline Cardiac: Positive: Reg Rate and Rhythm Lungs: Positive: Ventilated Respirations Neuro: Positive: Other (Unable to assess due to being intubated and sedated) Abdomen: Positive: Soft Skin: Negative: Rash, Suspicious Lesions, Ulceration Extremities: Present: upper extr. pulses, edema - Labs and Meds CBC 05/28/21 Range/Units 10:05 WBC 11.4 H (4.5-11.0) K/mm3 RBC 4.51 (3.65-5.03) M/mm3 Hgb 12.8 (11.8-15.2) gm/dl Hct 40.2 (35.5-45.6) % Plt Count 176 (140-440) K/mm3 Lymph # (Auto) 1.3 (1.2-5.4) K/mm3 [place] # (Auto) 1.0 H (0.0-0.8) K/mm3 Eos # (Auto) 0.1 (0.0-0.4) K/mm3 Baso # (Auto) 0.1 (0.0-0.1) K/mm3 Comprehensive Metabolic Panel 05/28/21 Range/Units 10:05 Sodium 149 H (137-145) mmol/L Potassium 4.3 (3.6-5.0) mmol/L Chloride 119.9 H (98-107) mmol/L Carbon Dioxide 18 L (22-30) mmol/L BUN 16 (9-20) mg/dL Creatinine 0.8 (0.8-1.3) mg/dL Glucose 103 H (75-100) mg/dL Calcium 8.9 (8.4-10.2) mg/dL - Imaging and Cardiology Echo: report reviewed Cardiac cath: report reviewed - Telemetry EKG Rhythm: Sinus Rhythm - EKG Sinus rhythms and dysrhythmias: sinus tachycardia Ventricular dysrhythmias: ventricular premature com Repolarization changes or abnormalities: nonspecific abnormality, ST segment, and/or T wave
[2021-05-28] MEDS: ENOXAPARIN 40 MG/0.4 ML INJ SUB-Q SCH (15:16)
[2021-05-28] MEDS: FREE WATER PO SCH ×3 (18:31→21:41)
[2021-05-28] MEDS: SENNOSIDES 8.6 MG TAB PO SCH (21:41)
[2021-05-29] MEDS: fentaNYL DRIP Premix 2,000 MCG/100 ML BAG IV SCH ×4 (01:13→20:32)
[2021-05-29] MEDS: FREE WATER PO SCH ×2 (02:00→05:40)
[2021-05-29 03:33] LABS: ABG Base Excess -3.6 mmol/L (-2.0-3.0); ABG Methemoglobin 0.5 % (0.0-1.5); ABG Oxygen Saturation 98.7 % (95.0-99.0); ABG PCO2 36.2 mm Hg; ABG PH 7.38 pH Units (7.350-7.450); ABG PO2 138.1 mm Hg (80.0-90.0)
[2021-05-29 05:45] LABS: Hematocrit 36.4 % (35.5-45.6); Hemoglobin 11.8 gm/dl (11.8-15.2); Mean Corpuscular HGB Conc 32 % (32-34); Mean Corpuscular Volume 89 fl (84-94); Platelet Count 196 K/mm3 (140-440); Red Blood Count 4.08 M/mm3 (3.65-5.03); Red Cell Distribution Width 15.4 % (13.2-15.2)
[2021-05-29 06:01] LABS: BUN/Creatinine Ratio 19; Blood Urea Nitrogen 15 mg/dL (9-20); Calcium 8.7 mg/dL (8.4-10.2); Hemolysis Index 1
[2021-05-29] MEDS: NORepinephrine/NS 8 MG-250 ML 8 MG/250 ML INFUS..BTL IV SCH (06:13)
[2021-05-29] MEDS ORDERED: LIPASE 10,500/PROTEASE 25,000/AMYLASE 43,750 (UNITS) DR CAP FEEDTUBE PRN (08:45)
[2021-05-29] MEDS ORDERED: SIMPLE SYRUP 15 ML FEEDTUBE PRN ×2 (08:45)
[2021-05-29] MEDS ORDERED: SODIUM BICARBONATE 325 MG TAB FEEDTUBE PRN (08:45)
[2021-05-29] MEDS ORDERED: MAGNESIUM SULFATE 4 GM/100 ML BAG IV ONE (09:00)
[2021-05-29] MEDS: FAMOTIDINE 20 MG/2 ML INJ IV SCH ×2 (09:15→21:03)
[2021-05-29] MEDS: METOPROLOL TARTRATE 25 MG TAB PO SCH ×2 (09:17→21:05)
[2021-05-29] MEDS: ENOXAPARIN 40 MG/0.4 ML INJ SUB-Q SCH (09:19)
[2021-05-29] MEDS: K-PHOS NEUTRAL 250 MG TAB PO SCH ×4 (10:40→21:04)
[2021-05-29] MEDS: DEXTROSE 5% IN WATER 1,000 ML IV SCH ×2 (10:41→22:57)
--- NOTE | 2021-05-29 11:05 | Progress Note ---
Assessment and Plan Assessment and plan: This is a 40-year-old male with known history of HFrEF, methamphetamine dependence, and nicotine dependence admitted for drug overdose and acute metabolic encephalopathy. Patient went into respiratory failure and was intubated requiring ventilatory support. Hospital Course to date: 05/25/2021: Worsening interstitial infiltrates. unclear if this is a developing pneumonia from aspiration/volume overload. Empiric abx coverage. ECHO with bubble study ordered. Placed on iv abx. kidney function improving. 05/26/2021: Tachycardic on levo gtt, advised RN to titrate down as long as MAP > 65. HR improved on my follow up encounter. PCCM titrating vent down. Renal function improving....Cr now 1.3. 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 05/27/2021: Extubated yesterday however in respiratory distress, re-intubated. Patient has severe systolic heart failure. Cardiology consulted for severe systolic heart failure. Will need to discuss optimal strategy regarding diuresis. 05/28: Patient remains on the vent. Febrile overnight, no longer on IV abx, leukocytosis improved, will panculture patient for now hold off on IV Abx. D/W CCM plan to wean sedation, depends on patient's mental status possible extubation today. Patient with low EF 20 to 25%, IVF D/nickolas. FWF for hyperna trenia, repeat lab in the am. 05/29- With increased agitation and tachycardia, maxed out on precedex and fentanyl gtt. Patient appears to be in withdrawal, Ativan added. Remains febrile, off pressors this am, leukocytosis improved. Continue to f/u on culture data. Hypernatremia this am, on D5w per nephro, electrolyte repleted, repeat labs in the am Assessment and Plan #Acute hypoxic respiratory failure #Bilateral Pneumonia #Possible Aspiration - Intially Intubated in the ED on 05/23 for airway protection - Extubated and reintubated on 05/27 for respiratory distress - C/f possible aspiration vs fluid overlaod from IVF boluses received since admit - Vent Setting:CMV-40%,6,12,500 - This am ABG noted - CCM consulted, appreciate recommendations - Continue Nebs per CCM - VAP bundle addressed - Aspiration precaution HOB above 30 - Daily SBT and SAT trials as tolerated - Daily ABG and CXR per CCM - Continue SPO2 monitoring for SPO2 goal above 92% #HFrEF #Cardiomegaly - Cardiology on consult, appreciated recommendations - 05/25/2021: Echo- EF 20 to 25%. Severe global hypokinesis of left ventricle. Left ventricle is moderately dilated. Doppler flow suggests impaired LV relaxation. Moderate mitral regurgitation. No pericardial effusion - 08/04/2020: Cardiac cath- Angiographically normal coronary arteries. This is indicative of a nonischemic cardiomyopathy. Mildly elevated biventricular filling pressures with normal cardiac index - 08/02/2020: Echo- EF 18%,Severe global LV hypokinesis. Normal LV diastolic function. LA mildly dilated. Moderate mitral regurgitation with an eccentric MR jet(s),No previous echocardiogram for comparison. - Could be volume overloaded from fluid admin early in admission - Patient on low dose pressors this am, BP still marginal - Will follow cardiology/nephro recs re: diuresis - Continue blood pressure monitor per protocol - Maintain MAP above 65 #Acute Toxic Metabolic Encephalopathy #Overdose by Ingestion #H/o Polysubstance Abuse - amphetamines in tox screen - Patient remains agitated, max on fentanyl and precedex gtt - Appears to be withdrawal, PRN Ativan added - Titrate sedation for RASS goal of 0 to -1 - Prn analgesia for CPOT greater than 3 - Maintenance of sleep-wake cycle #Acute Kidney Injury due to Acute Tubular Necrosis #Hypernatremia - Cr: 3.5 on 03/24, baseline 0.9. suspect dehydration vs toxic exposure vs rhabdo - Renal function improved with IV hydration - High Na this am- Now on D5w per Nephro - Nephrology on consult, appreciated recommendation - Strict intake and output - Daily weight - Avoid nephrotoxic medications; Renally dose medications - Monitor and replace electrolytes as needed - Trend BMP #Sepsis POA #Bilateral Pneumonia #Lactic Acidosis - febrile, elevated lactic, source likely pulmonary - COVID PCR neg - UA is negative - Blood culture, Urine culture, and sputum culture pending - Completed 3days of IV Abx - CRP 34.80, procal pending - Will hold off on IV Abx for now - Continue to F/U on B.cult - Daily CBC monitor - Consider ID consult if with persistent fever or/and if leukocytosis reoccur #DVT Prophylaxis - AC- Lovenox SuQ - SCDs to bilateral lower extremities while in bed The high probability of a clinically significant, sudden or life threatening deterioration of the [multiple] system(s) required my full and direct attention, intervention and personal management. The aggregate critical care time was [60] minutes. This time is in addition to time spent performing reported procedures but includes the following: [x] Data Review and interpretation [x] Patient assessment and monitoring of vital signs [x] Documentation [x] Medication orders and management Disposition Plan: ICU Total Time Spent with Patient (Minutes): 60 History Interval history: Patient seen and examined at the bedside. Intubated and maxed out on fentanyl and precedex gtt. Patient remains agitation, nonpurposeful and not following commands. Hypertensive with tachycardia, Per RN HR as high as 170s, which resolved once patient settled down. Hospitalist Physical - Constitutional Vitals: Temp Pulse Resp BP Pulse Ox 101.0 F H 145 H 30 H 118/62 100 05/29/21 08:00 05/29/21 09:17 05/29/21 06:00 05/29/21 09:17 05/29/21 08:47 General appearance: Present: mild distress, obese, other (On the vent) - EENT Eyes: Present: PERRL - Neck Neck: Present: normal ROM - Respiratory Respiratory effort: accessory muscle use Respiratory: bilateral: rhonchi - Cardiovascular Rhythm: regular Heart Sounds: Present: S1 & S2 - Extremities Extremities: no ischemia, pulses intact, pulses symmetrical Extremity abnormal: edema - Peripheral Assessment Generalized Edema Type: Non-pitting Edema Degree: 1+ Capillary Refill: < 3 seconds Skin Temperature: Warm Peripheral Pulses: within normal limits - Abdominal General gastrointestinal: soft, non-distended, normal bowel sounds - Integumentary Integumentary: Present: warm, dry - Psychiatric Psychiatric: agitated - Neurologic Neurologic: moves all extremities, other (Agitated, nonpurposeful and not following commands.) - Allied Health Allied health notes reviewed: nursing HEART Score - HEART Score Troponin: Troponin T < 0.010 ng/mL (0.00-0.029) 05/23/21 09:38 Results - Labs CBC & Chem 7: 05/29/21 05:02 05/29/21 05:02 Labs: Laboratory Last Values WBC 13.0 K/mm3 (4.5-11.0) H 05/29/21 05:02 RBC 4.08 M/mm3 (3.65-5.03) 05/29/21 05:02 Hgb 11.8 gm/dl (11.8-15.2) 05/29/21 05:02 Hct 36.4 % (35.5-45.6) 05/29/21 05:02 MCV 89 fl (84-94) 05/29/21 05:02 MCH 29 pg (28-32) 05/29/21 05:02 MCHC 32 % (32-34) 05/29/21 05:02 RDW 15.4 % (13.2-15.2) H 05/29/21 05:02 Plt Count 196 K/mm3 (140-440) 05/29/21 05:02 Lymph % (Auto) 11.2 % (13.4-35.0) L 05/28/21 10:05 Granite % (Auto) 8.6 % (0.0-7.3) H 05/28/21 10:05 Eos % (Auto) 0.8 % (0.0-4.3) 05/28/21 10:05 Baso % (Auto) 0.5 % (0.0-1.8) 05/28/21 10:05 Lymph # (Auto) 1.3 K/mm3 (1.2-5.4) 05/28/21 10:05 Granite # (Auto) 1.0 K/mm3 (0.0-0.8) H 05/28/21 10:05 Eos # (Auto) 0.1 K/mm3 (0.0-0.4) 05/28/21 10:05 Baso # (Auto) 0.1 K/mm3 (0.0-0.1) 05/28/21 10:05 Add Manual Diff Complete 05/27/21 03:18 Total Counted 100 05/27/21 03:18 Seg Neutrophils % 78.9 % (40.0-70.0) H 05/28/21 10:05 Seg Neuts % (Manual) 92.0 % (40.0-70.0) H 05/27/21 03:18 Band Neutrophils % 0 % 05/27/21 03:18 Lymphocytes % (Manual) 5.0 % (13.4-35.0) L 05/27/21 03:18 Reactive Lymphs % (Man) 0 % 05/27/21 03:18 Monocytes % (Manual) 3.0 % (0.0-7.3) 05/27/21 03:18 Eosinophils % (Manual) 0 % (0.0-4.3) 05/27/21 03:18 Basophils % (Manual) 0 % (0.0-1.8) 05/27/21 03:18 Metamyelocytes % 0 % 05/27/21 03:18 Myelocytes % 0 % 05/27/21 03:18 Promyelocytes % 0 % 05/27/21 03:18 Blast Cells % 0 % 05/27/21 03:18 Nucleated RBC % Not Reportable 05/27/21 03:18 Seg Neutrophils # 9.0 K/mm3 (1.8-7.7) H 05/28/21 10:05 Seg Neutrophils # Man 19.8 K/mm3 (1.8-7.7) H 05/27/21 03:18 Band Neutrophils # 0.0 K/mm3 05/27/21 03:18 Lymphocytes # (Manual) 1.1 K/mm3 (1.2-5.4) L 05/27/21 03:18 Abs React Lymphs (Man) 0.0 K/mm3 05/27/21 03:18 Monocytes # (Manual) 0.6 K/mm3 (0.0-0.8) 05/27/21 03:18 Eosinophils # (Manual) 0.0 K/mm3 (0.0-0.4) 05/27/21 03:18 Basophils # (Manual) 0.0 K/mm3 (0.0-0.1) 05/27/21 03:18 Metamyelocytes # 0.0 K/mm3 05/27/21 03:18 Myelocytes # 0.0 K/mm3 05/27/21 03:18 Promyelocytes # 0.0 K/mm3 05/27/21 03:18 Blast Cells # 0.0 K/mm3 05/27/21 03:18 WBC Morphology Not Reportable 05/27/21 03:18 Hypersegmented Neuts Not Reportable 05/27/21 03:18 Hyposegmented Neuts Not Reportable 05/27/21 03:18 Hypogranular Neuts Not Reportable 05/27/21 03:18 Smudge Cells Not Reportable 05/27/21 03:18 Toxic Granulation Not Reportable 05/27/21 03:18 Toxic Vacuolation Not Reportable 05/27/21 03:18 Dohle Bodies Not Reportable 05/27/21 03:18 Pelger-Huet Anomaly Not Reportable 05/27/21 03:18 Glenn Rods Not Reportable 05/27/21 03:18 Platelet Estimate Consistent w auto 05/27/21 03:18 Clumped Platelets Not Reportable 05/27/21 03:18 Plt Clumps, EDTA Not Reportable 05/27/21 03:18 Large Platelets Not Reportable 05/27/21 03:18 Giant Platelets Not Reportable 05/27/21 03:18 Platelet Satelliting Not Reportable 05/27/21 03:18 Plt Morphology Comment Not Reportable 05/27/21 03:18 RBC Morphology Normal 05/27/21 03:18 Dimorphic RBCs Not Reportable 05/27/21 03:18 Polychromasia Not Reportable 05/27/21 03:18 Hypochromasia Not Reportable 05/27/21 03:18 Poikilocytosis Not Reportable 05/27/21 03:18 Anisocytosis Not Reportable 05/27/21 03:18 Microcytosis Not Reportable 05/27/21 03:18 Macrocytosis Not Reportable 05/27/21 03:18 Spherocytes Not Reportable 05/27/21 03:18 Pappenheimer Bodies Not Reportable 05/27/21 03:18 Sickle Cells Not Reportable 05/27/21 03:18 Target Cells Not Reportable 05/27/21 03:18 Tear Drop Cells Not Reportable 05/27/21 03:18 Ovalocytes Not Reportable 05/27/21 03:18 Helmet Cells Not Reportable 05/27/21 03:18 Maravilla-Sudley Bodies Not Reportable 05/27/21 03:18 Stacy Rings Not Reportable 05/27/21 03:18 Giorgio Cells Not Reportable 05/27/21 03:18 Bite Cells Not Reportable 05/27/21 03:18 Crenated Cell Not Reportable 05/27/21 03:18 Elliptocytes Not Reportable 05/27/21 03:18 Acanthocytes (Spur) Not Reportable 05/27/21 03:18 Rouleaux Not Reportable 05/27/21 03:18 Hemoglobin C Crystals Not Reportable 05/27/21 03:18 Schistocytes Not Reportable 05/27/21 03:18 Malaria parasites Not Reportable 05/27/21 03:18 Frandy Bodies Not Reportable 05/27/21 03:18 Hem Pathologist Commnt No 05/27/21 03:18 ABG pH 7.380 pH Units (7.350-7.450) 05/29/21 03:00 POC ABG pCO2 41.6 mmHg (32.0-48.0) 05/24/21 03:44 ABG pCO2 36.2 mm Hg 05/29/21 03:00 POC ABG pO2 87.6 mmHg (83-108) 05/24/21 03:44 ABG pO2 138.1 mm Hg (80.0-90.0) H 05/29/21 03:00 POC ABG HCO3 17.5 05/24/21 03:44 ABG HCO3 21.0 mmol/L (20.0-26.0) 05/29/21 03:00 ABG O2 Saturation 98.7 % (95.0-99.0) 05/29/21 03:00 ABG O2 Content 17.5 (0.0-44) 05/29/21 03:00 POC ABG Base Excess -9.5 05/24/21 03:44 ABG Base Excess -3.6 mmol/L (-2.0-3.0) L 05/29/21 03:00 ABG Hemoglobin 12.8 gm/dl (14.0-18.0) L 05/29/21 03:00 ABG Oxyhemoglobin 94.8 (94-98) 05/24/21 03:44 ABG Carboxyhemoglobin 2.0 % (0.0-5.0) 05/29/21 03:00 ABG Methemoglobin 0.5 % (0.0-1.5) 05/29/21 03:00 ABG Sodium 137.9 mmol/L (136.0-145.0) 05/24/21 03:44 ABG Potassium 5.6 mmol/L (3.40-4.50) H 05/24/21 03:44 ABG Chloride 105.0 mmol/L (98-107) 05/24/21 03:44 ABG Glucose 53 mg/dL (65-95) L 05/24/21 03:44 Oxyhemoglobin 96.1 % (95.0-99.0) 05/29/21 03:00 Carboxyhemoglobin 0.8 (0.5-1.5) 05/24/21 03:44 FiO2 40 % 05/29/21 03:00 FiO2 % 100.0 05/24/21 03:44 Sodium 150 mmol/L (137-145) H 05/29/21 05:02 Potassium 3.6 mmol/L (3.6-5.0) 05/29/21 05:02 Chloride 119.8 mmol/L (98-107) H 05/29/21 05:02 Carbon Dioxide 18 mmol/L (22-30) L 05/29/21 05:02 Anion Gap 16 mmol/L 05/29/21 05:02 BUN 15 mg/dL (9-20) 05/29/21 05:02 Creatinine 0.8 mg/dL (0.8-1.3) 05/29/21 05:02 Estimated GFR > 60 ml/min 05/29/21 05:02 BUN/Creatinine Ratio 19 % 05/29/21 05:02 Glucose 109 mg/dL (75-100) H 05/29/21 05:02 POC Glucose 96 mg/dL (70-105) 05/28/21 17:04 Lactic Acid 2.10 mmol/L (0.7-2.0) H* 05/28/21 10:05 Calcium 8.7 mg/dL (8.4-10.2) 05/29/21 05:02 Phosphorus 2.20 mg/dL (2.5-4.5) L 05/29/21 05:02 Magnesium 1.50 mg/dL (1.7-2.3) L 05/29/21 05:02 Total Bilirubin 7.80 mg/dL (0.1-1.2) H 05/27/21 03:18 Total Bilirubin 7.90 mg/dL (0.1-1.2) H 05/27/21 03:18 Direct Bilirubin 6.0 mg/dL (0-0.2) H 05/27/21 03:18 Indirect Bilirubin 1.9 mg/dL 05/27/21 03:18 AST 112 units/L (5-40) H 05/27/21 03:18 AST 114 units/L (5-40) H 05/27/21 03:18 ALT 38 units/L (7-56) 05/27/21 03:18 ALT 38 units/L (7-56) 05/27/21 03:18 Alkaline Phosphatase 111 units/L (35-129) 05/27/21 03:18 Alkaline Phosphatase 126 units/L (35-129) 05/27/21 03:18 Total Creatine Kinase 556 units/L (55-170) H 05/24/21 09:35 Troponin T < 0.010 ng/mL (0.00-0.029) 05/23/21 09:38 C-Reactive Protein 34.80 mg/dL (0.00-1.30) H 05/28/21 10:05 NT-Pro-B Natriuret Pep 6058 pg/mL (0-450) H 05/23/21 09:38 Total Protein 5.2 g/dL (6.3-8.2) L 05/27/21 03:18 Total Protein 5.2 g/dL (6.3-8.2) L 05/27/21 03:18 Albumin 2.8 g/dL (3.9-5) L 05/27/21 03:18 Albumin 2.9 g/dL (3.9-5) L 05/27/21 03:18 Albumin/Globulin Ratio 1.2 % 05/27/21 03:18 Albumin/Globulin Ratio 1.3 % 05/27/21 03:18 Procalcitonin 12.51 ng/mL (<0.15) 05/28/21 10:05 Arterial Blood Glucose 53 mg/dL (65-95) L 05/24/21 03:44 Arterial Blood Ionized Calcium 4.6 mg/dL (4.6-5.3) 05/24/21 03:44 Urine Color Sherri (Yellow) 05/28/21 12:20 Urine Turbidity Clear (Clear) 05/28/21 12:20 Urine pH 6.0 (5.0-7.0) 05/28/21 12:20 Ur Specific [place] 1.017 (1.003-1.030) 05/28/21 12:20 Urine Protein 30 mg/dl mg/dL (Negative) 05/28/21 12:20 Urine Glucose (UA) Neg mg/dL (Negative) 05/28/21 12:20 Urine Ketones Neg mg/dL (Negative) 05/28/21 12:20 Urine Blood Mod (Negative) 05/28/21 12:20 Urine Nitrite Neg (Negative) 05/28/21 12:20 Urine Bilirubin Mod (Negative) 05/28/21 12:20 Urine Ictotest Positive (Negative) 05/28/21 12:20 Urine Urobilinogen 4.0 mg/dL (<2.0) 05/28/21 12:20 Ur Leukocyte Esterase Neg (Negative) 05/28/21 12:20 Urine WBC (Auto) 3.0 /HPF (0.0-6.0) 05/28/21 12:20 Urine RBC (Auto) 4.0 /HPF (0.0-6.0) 05/28/21 12:20 U Epithel Cells (Auto) < 1.0 /HPF (0-13.0) 05/28/21 12:20 Urine Bacteria (Auto) 1+ /HPF (Negative) 05/28/21 12:20 Urine Mucus Few /HPF 05/28/21 12:20 Urine Yeast (Budding) 1+ /HPF 05/24/21 Unknown Salicylates < 0.3 mg/dL (2.8-20.0) L 05/23/21 09:38 Urine Opiates Screen Negative 05/23/21 09:41 Urine Methadone Screen Negative 05/23/21 09:41 Acetaminophen 5.0 ug/mL (10.0-30.0) L 05/23/21 09:38 Ur Barbiturates Screen Negative 05/23/21 09:41 Ur Phencyclidine Scrn Negative 05/23/21 09:41 Ur Amphetamines Screen Positive 05/23/21 09:41 U Benzodiazepines Scrn Negative 05/23/21 09:41 Urine Cocaine Screen Negative 05/23/21 09:41 U Marijuana (THC) Screen Negative 05/23/21 09:41 Drugs of Abuse Note Disclamer 05/23/21 09:41 Coronavirus (PCR) Negative (Negative) 05/26/21 08:14 Hepatitis A IgM Ab Non-reactive (NonReactive) 05/27/21 16:00 Hep Bs Antigen Non-reactive (Negative) 05/27/21 16:00 Hep B Core IgM Ab Non-reactive (NonReactive) 05/27/21 16:00 Hepatitis C Antibody Non-reactive (NonReactive) 05/27/21 16:00 Microbiology: Microbiology 05/28/21 08:50 Tracheal Aspirate Sputum Culture - Preliminary 05/28/21 10:05 Peripheral/Venous Blood Culture - Preliminary Culture in Progress 05/28/21 10:05 Peripheral/Venous Blood Culture - Preliminary Culture in Progress Fajardo/IV: Voiding Method Indwelling Catheter Active Medications - Current Medications Current Medications: Generic Name Dose Route Start Last Admin Trade Name Freq PRN Reason Stop Dose Admin Acetaminophen 650 mg 05/23/21 11:43 05/23/21 17:07 Acetaminophen 650 Mg Rect Supp [place] 650 mg Q6H PRN Administration Pain MILD(1-3)/Fever >100.5/EPSTEIN Lipase/Protease/Amylase 1 each 05/29/21 08:45 Lipase 10,500/Protease 25,000/Amylase 43,750 (Units) Dr Mitchell FEEDTUBE PRN PRN For Clogged Feeding Tube Enoxaparin Sodium 40 mg 05/28/21 15:00 05/29/21 09:19 Enoxaparin 40 Mg/0.4 Ml Inj SUB-Q 40 mg QDAY@1000 MRAK Administration Famotidine 20 mg 05/25/21 11:00 05/29/21 09:15 Famotidine 20 Mg/2 Ml Inj IV 20 mg BID MARK Administration Hydromorphone HCl 0.5 mg 05/23/21 11:43 05/29/21 09:18 Hydromorphone 1 Mg/1 Ml Inj IV 0.5 mg Q24H PRN Administration Pain , Severe (7-10) Dexmedetomidine HCl 400 mcg/ 104 mls @ 5.307 mls/hr 05/24/21 05:00 05/29/21 08:23 Sodium Chloride IV 1.4 mcg/kg/hr TITRATE MARK 37.149 mls/hr Administration Protocol 0.2 MCG/KG/HR NORepinephrine/NS 8 MG-250 ML 8 mg in 250 mls @ 3.75 mls/hr 05/24/21 11:00 05/29/21 06:13 Norepinephrine/Ns 8 Mg-250 Ml (Double Conc) IV 2 mcg/min TITRATE MARK 3.75 mls/hr Administration Protocol 2 MCG/MIN Fentanyl Citrate 2,000 mcg in 100 mls @ 5.103 mls/hr 05/27/21 07:00 05/29/21 08:24 Fentanyl Drip Premix IV 3 mcg/kg/hr TITR MARK 15.309 mls/hr Administration Protocol 1 MCG/KG/HR Dextrose 1,000 mls @ 75 mls/hr 05/28/21 11:00 05/29/21 10:41 D5w IV 75 mls/hr DIRECT MAKR Administration Magnesium Sulfate 4 gm in 100 mls @ 25 mls/hr 05/29/21 09:00 05/29/21 09:17 Magnesium Sulfate 4gm/100ml IV 05/29/21 12:59 25 mls/hr ONCE ONE Administration Metoprolol Tartrate 12.5 mg 05/28/21 14:00 05/29/21 09:17 Metoprolol Tartrate 25 Mg Tab PO 12.5 mg BID MARK Administration Morphine Sulfate 2 mg 05/23/21 11:43 Morphine 2 Mg/1 Ml Inj IV Q24H PRN Pain, Moderate (4-6) Ondansetron HCl 4 mg 05/23/21 11:43 Ondansetron 4 Mg/2 Ml Inj IV Q8H PRN Nausea And Vomiting Senna 17.2 mg 05/28/21 22:00 05/28/21 21:41 Sennosides 8.6 Mg Tab PO 17.2 mg QHS MARK Administration Simple Syrup 15 ml 05/29/21 08:45 Simple Syrup 15 Ml FEEDTUBE PRN PRN Hypoglycemia Simple Syrup 30 ml 05/29/21 08:45 Simple Syrup 15 Ml FEEDTUBE PRN PRN Hypoglycemia Sodium Bicarbonate 325 mg 05/29/21 08:45 Sodium Bicarbonate 325 Mg Tab FEEDTUBE PRN PRN For Clogged Feeding Tube Sodium Chloride 10 ml 05/23/21 22:00 05/29/21 09:19 Sodium Chloride 0.9% 10 Ml Flush Syringe IV 10 ml BID MARK Administration Sodium Chloride 10 ml 05/23/21 11:43 Sodium Chloride 0.9% 10 Ml Flush Syringe IV PRN PRN LINE FLUSH Sodium Phosphate 250 mg 05/29/21 10:00 05/29/21 10:40 K-Phos Neutral 250 Mg Tab PO 05/29/21 22:01 250 mg QID MARK Administration Nutrition/Malnutrition Assess - Dietary Evaluation Nutrition/Malnutrition Findings: Nutrition Notes Start: 05/28/21 12:16 Freq: Status: Active Protocol: Document 05/28/21 12:16 YURI (Rec: 05/28/21 12:23 YURI [id number]) Nutrition Notes Need for Assessment generated from: LOS Initial or Follow up Assessment Current Diagnosis Heart Failure,Respiratory Failure Other Pertinent Diagnosis Acute encephalopathy, Overdose , Methamphetamine dependence Current Diet NPO Labs/Tests (05/27/21) Na 148 tBili 7.9 Pertinent Medications NS at 125ml/hr Height 6 ft Weight 102.058 kg [place] Body Weight (kg) 80.90 BMI 30.5 Weight Status Obese Subjective/Other Information Pt screened for LOS. He has been in ED since admission; transferred to ICU this am. NPO x 6 days. No TF consult received; pt intubated. Burn Absent Trauma Absent Minimum of two criteria No #1 Nutrition Diagnosis Inadequate oral intake Etiology mech ventilation As Evidenced by Signs and Symptoms pt NPO Is patient on ventilator? Yes Is Patient Ambulatory and/or Out of Bed No REE-([place]-confined to bed) [phone] Calculation Used for Recommendations 65-70% energy needs Additional Notes Energy needs: [id number] kcal/ day Pro needs 2g/kg IBW: 162g/day Fluid needs 1ml/kcal Nutrition Intervention Nutrition Support: If unable to advance diet, recommend Vital HP at 65ml/hr. Goal #1 Either advance diet or start EN support to meet nutrient needs Anticipated Discharge Needs: Unable to identify at this time Follow-Up By: 05/31/21 Additional Comments F/U: diet advancement vs TF consult, vent status
[2021-05-29] MEDS ORDERED: LORazepam 2 MG/ML VIAL IV ONE (11:19)
--- NOTE | 2021-05-29 13:25 | Progress Note ---
Assessment and Plan Impression: * Nonoliguric cute kidney injury secondary to ATN * Acute hypoxic respiratory failure --COVID 19 negative * Acute encephalopathy * Hypernatremia * Hypotension * Drug overdose * Hyperkalemia * Hypernatremia Plan: * Renal function has improved - BRYNN resolved * Continue D5W 75ml/hour * Continue close monitoring of renal function * Medical management of electrolytes * Vent management per pulm * Pressors prn - maintain MAP>65; * Dose medications for renal function * Strict I/O - maintain christianson catheter in critically ill patient * Avoid potential nephrotoxins Subjective Date of service: 05/29/21 Principal diagnosis: Overdose Interval history: Chart, vitals, labs reviewed. Patient remains intubated - ACVC Rate 30, TV 500, FiO2 40, PEEP 6 Objective - Vital Signs Vital signs: Vital Signs - 12hr 05/29/21 05/29/21 05/29/21 01:30 02:00 02:30 Temperature Pulse Rate 82 79 82 Pulse Rate [ From Monitor] Respiratory 30 H 30 H 30 H Rate Blood Pressure 93/56 83/46 94/55 O2 Sat by Pulse 99 97 98 Oximetry 05/29/21 05/29/21 05/29/21 03:01 03:15 03:30 Temperature Pulse Rate 145 H 82 107 H Pulse Rate [ From Monitor] Respiratory 19 30 H Rate Blood Pressure 124/83 92/55 97/49 O2 Sat by Pulse 100 98 97 Oximetry 05/29/21 05/29/21 05/29/21 04:00 04:30 05:00 Temperature 98.2 F Pulse Rate 87 126 H 86 Pulse Rate [ 87 From Monitor] Respiratory 30 H 27 H 30 H Rate Blood Pressure 92/47 104/69 94/49 O2 Sat by Pulse 96 100 96 Oximetry 05/29/21 05/29/21 05/29/21 05:30 06:00 06:30 Temperature Pulse Rate 92 H 84 84 Pulse Rate [ From Monitor] Respiratory 30 H 30 H 30 H Rate Blood Pressure 99/46 92/47 99/60 O2 Sat by Pulse 97 97 100 Oximetry 05/29/21 05/29/21 05/29/21 07:00 07:31 08:00 Temperature 101.0 F H Pulse Rate 80 108 H Pulse Rate [ 151 H From Monitor] Respiratory 30 H 30 H 36 H Rate Blood Pressure 93/50 94/47 O2 Sat by Pulse 97 99 100 Oximetry 05/29/21 05/29/21 05/29/21 08:01 08:31 08:47 Temperature Pulse Rate 151 H 131 H 150 H Pulse Rate [ From Monitor] Respiratory 29 H 32 H Rate Blood Pressure 119/72 125/50 131/80 O2 Sat by Pulse 100 98 100 Oximetry 05/29/21 05/29/21 05/29/21 09:00 09:17 09:30 Temperature Pulse Rate 147 H 145 H 114 H Pulse Rate [ From Monitor] Respiratory 30 H 31 H Rate Blood Pressure 130/67 118/62 110/48 O2 Sat by Pulse 100 99 Oximetry 05/29/21 05/29/21 05/29/21 10:01 10:30 11:00 Temperature Pulse Rate 141 H 117 H 115 H Pulse Rate [ From Monitor] Respiratory 17 23 30 H Rate Blood Pressure 121/71 96/54 103/50 O2 Sat by Pulse 98 99 99 Oximetry 05/29/21 05/29/21 05/29/21 11:30 12:00 12:15 Temperature 100.9 F H Pulse Rate 119 H 83 93 H Pulse Rate [ 87 From Monitor] Respiratory 32 H 30 H Rate Blood Pressure 106/63 108/63 99/49 O2 Sat by Pulse 99 96 97 Oximetry - General Appearance General appearance: well-developed, well-nourished, intubated EENT: ATNC, other (ETT in place) Respiratory: Present: Clear to Ascultation Cardiology: regular, S1S2 Gastrointestinal: normal, no distended Integumentary: no rash, warm and dry Musculoskeletal: other (no edema) - Lab 05/30/21 04:29 05/30/21 04:29 Most recent lab results ABG pH 7.380 pH Units (7.350-7.450) 05/29/21 03:00 ABG pCO2 36.2 mm Hg 05/29/21 03:00 ABG pO2 138.1 mm Hg (80.0-90.0) H 05/29/21 03:00 ABG HCO3 21.0 mmol/L (20.0-26.0) 05/29/21 03:00 ABG O2 Saturation 98.7 % (95.0-99.0) 05/29/21 03:00 Calcium 8.7 mg/dL (8.4-10.2) 05/29/21 05:02 Phosphorus 2.20 mg/dL (2.5-4.5) L 05/29/21 05:02 Magnesium 1.50 mg/dL (1.7-2.3) L 05/29/21 05:02 Medications & Allergies - Medications Allergies/Adverse Reactions: Allergies No Known Allergies Allergy (Verified 05/26/21 10:09) Home Medications: Home Medications Medication Instructions Recorded Confirmed Last Taken Type Unobtainable 09/13/13 09/13/13 Unknown History Active Medications: Generic Name Dose Route Start Last Admin Trade Name Freq PRN Reason Stop Dose Admin Acetaminophen 650 mg 05/23/21 11:43 05/23/21 17:07 Acetaminophen 650 Mg Rect Supp VT 650 mg Q6H PRN Administration Pain MILD(1-3)/Fever >100.5/EPSTEIN Lipase/Protease/Amylase 1 each 05/29/21 08:45 Lipase 10,500/Protease 25,000/Amylase 43,750 (Units) Dr Mitchell FEEDTUBE PRN PRN For Clogged Feeding Tube Enoxaparin Sodium 40 mg 05/28/21 15:00 05/29/21 09:19 Enoxaparin 40 Mg/0.4 Ml Inj SUB-Q 40 mg QDAY@1000 MARK Administration Famotidine 20 mg 05/25/21 11:00 05/29/21 09:15 Famotidine 20 Mg/2 Ml Inj IV 20 mg BID MARK Administration Hydromorphone HCl 0.5 mg 05/23/21 11:43 05/29/21 09:18 Hydromorphone 1 Mg/1 Ml Inj IV 0.5 mg Q24H PRN Administration Pain , Severe (7-10) Dexmedetomidine HCl 400 mcg/ 104 mls @ 5.307 mls/hr 05/24/21 05:00 05/29/21 11:18 Sodium Chloride IV 1.4 mcg/kg/hr TITRATE MARK 37.149 mls/hr Administration Protocol 0.2 MCG/KG/HR NORepinephrine/NS 8 MG-250 ML 8 mg in 250 mls @ 3.75 mls/hr 05/24/21 11:00 05/29/21 06:13 Norepinephrine/Ns 8 Mg-250 Ml (Double Conc) IV 2 mcg/min TITRATE MARK 3.75 mls/hr Administration Protocol 2 MCG/MIN Fentanyl Citrate 2,000 mcg in 100 mls @ 5.103 mls/hr 05/27/21 07:00 05/29/21 08:24 Fentanyl Drip Premix IV 3 mcg/kg/hr TITR MARK 15.309 mls/hr Administration Protocol 1 MCG/KG/HR Dextrose 1,000 mls @ 75 mls/hr 05/28/21 11:00 05/29/21 10:41 D5w IV 75 mls/hr DIRECT MARK Administration Metoprolol Tartrate 12.5 mg 05/28/21 14:00 05/29/21 09:17 Metoprolol Tartrate 25 Mg Tab PO 12.5 mg BID MARK Administration Morphine Sulfate 2 mg 05/23/21 11:43 Morphine 2 Mg/1 Ml Inj IV Q24H PRN Pain, Moderate (4-6) Ondansetron HCl 4 mg 05/23/21 11:43 Ondansetron 4 Mg/2 Ml Inj IV Q8H PRN Nausea And Vomiting Senna 17.2 mg 05/28/21 22:00 05/28/21 21:41 Sennosides 8.6 Mg Tab PO 17.2 mg QHS MARK Administration Simple Syrup 15 ml 05/29/21 08:45 Simple Syrup 15 Ml FEEDTUBE PRN PRN Hypoglycemia Simple Syrup 30 ml 05/29/21 08:45 Simple Syrup 15 Ml FEEDTUBE PRN PRN Hypoglycemia Sodium Bicarbonate 325 mg 05/29/21 08:45 Sodium Bicarbonate 325 Mg Tab FEEDTUBE PRN PRN For Clogged Feeding Tube Sodium Chloride 10 ml 05/23/21 22:00 05/29/21 09:19 Sodium Chloride 0.9% 10 Ml Flush Syringe IV 10 ml BID MARK Administration Sodium Chloride 10 ml 05/23/21 11:43 Sodium Chloride 0.9% 10 Ml Flush Syringe IV PRN PRN LINE FLUSH Sodium Phosphate 250 mg 05/29/21 10:00 05/29/21 10:40 K-Phos Neutral 250 Mg Tab PO 05/29/21 22:01 250 mg QID MARK Administration
--- NOTE | 2021-05-29 15:03 | Progress Note ---
Assessment and Plan Assessment and Plan 40 y/o male with suspected overdose and metabolic acidosis 05/29/2021:. Appears to have somewhat increased work of breathing on ventilator today. Unable to give a CPAP trial because of follow-up episodes of severe tachycardia. Cardiology is on board. Continue to monitor on current on the mechanical ventilator. Plan to extubate only if mental status improved, respiratory status stable and cardiac rhythm is under control 05/28/21: Extubate again today once patient is more awake. Continue precedex to help with agitation. Will need swallow eval once extubated. Cards is seeing, await any new recs. spoke with them this morning and his cardiomyopathy and systolic heart failure are chronic with normal coronaries on a cath last year sometime in the [place] [facility]. 05/27/21: Get patient to ICU as soon as possible to achieve adequate sedation and mental state control to insure successful extubation. AGree with Precedex 05/26/21: Attempt extubation today once all sedation is off. 05/25/21: follow up echo. Spoke with RT about ABG. States will be in system within the hour. Still pressors but on Precedex, Versed and Fent. needs to be COVID tested. BNP was >6k. Unable to diurese right now given pressor requirements but need to follow up echo. need to get patient upstairs as soon as possible. Spoke with charge nurse and they are working on this. 1. CXR shows cardiomegaly with some bibasilar changes. Could be fluid. Suggest swabbing for COVID. Check BNP and obtain 2D echo given heart size. 2. Minimal sedation to assess mental status 3. Wean pressors for MAPS >60 4. Follow up renal recs 5. No ABG prior to intubation. Echo should be a bubble study given degree of hypoxemia seen on ABG CCT 31 minutes. Subjective Date of service: 05/29/21 Principal diagnosis: Overdose Interval history: No significant change. Remains on mechanical ventilator. Unable to extubate because of increased work of breathing and tachycardia of 260 Objective Vital Signs - 12hr 05/29/21 05/29/21 05/29/21 03:01 03:15 03:30 Temperature Pulse Rate 145 H 82 107 H Pulse Rate [ From Monitor] Respiratory 19 30 H Rate Blood Pressure 124/83 92/55 97/49 O2 Sat by Pulse 100 98 97 Oximetry 05/29/21 05/29/21 05/29/21 04:00 04:30 05:00 Temperature 98.2 F Pulse Rate 87 126 H 86 Pulse Rate [ 87 From Monitor] Respiratory 30 H 27 H 30 H Rate Blood Pressure 92/47 104/69 94/49 O2 Sat by Pulse 96 100 96 Oximetry 05/29/21 05/29/21 05/29/21 05:30 06:00 06:30 Temperature Pulse Rate 92 H 84 84 Pulse Rate [ From Monitor] Respiratory 30 H 30 H 30 H Rate Blood Pressure 99/46 92/47 99/60 O2 Sat by Pulse 97 97 100 Oximetry 05/29/21 05/29/21 05/29/21 07:00 07:31 08:00 Temperature 101.0 F H Pulse Rate 80 108 H Pulse Rate [ 151 H From Monitor] Respiratory 30 H 30 H 36 H Rate Blood Pressure 93/50 94/47 O2 Sat by Pulse 97 99 100 Oximetry 05/29/21 05/29/21 05/29/21 08:01 08:31 08:47 Temperature Pulse Rate 151 H 131 H 150 H Pulse Rate [ From Monitor] Respiratory 29 H 32 H Rate Blood Pressure 119/72 125/50 131/80 O2 Sat by Pulse 100 98 100 Oximetry 05/29/21 05/29/21 05/29/21 09:00 09:17 09:30 Temperature Pulse Rate 147 H 145 H 114 H Pulse Rate [ From Monitor] Respiratory 30 H 31 H Rate Blood Pressure 130/67 118/62 110/48 O2 Sat by Pulse 100 99 Oximetry 05/29/21 05/29/21 05/29/21 10:01 10:30 11:00 Temperature Pulse Rate 141 H 117 H 115 H Pulse Rate [ From Monitor] Respiratory 17 23 30 H Rate Blood Pressure 121/71 96/54 103/50 O2 Sat by Pulse 98 99 99 Oximetry 05/29/21 05/29/21 05/29/21 11:30 12:00 12:15 Temperature 100.9 F H Pulse Rate 119 H 83 93 H Pulse Rate [ 87 From Monitor] Respiratory 32 H 30 H Rate Blood Pressure 106/63 108/63 99/49 O2 Sat by Pulse 99 96 97 Oximetry Constitutional: other (Arousable to verbal stimulation) ENT: oropharynx moist, other (Orally intubated) Ascultation: Bilateral: rhonchi Cardiovascular: regular rate and rhythm (With episodes of tachycardia) Gastrointestinal: normoactive bowel sounds, soft, non-tender CBC and BMP: 05/29/21 05:02 05/29/21 05:02 ABG, PT/INR, D-dimer: ABG ABG pH 7.380 pH Units (7.350-7.450) 05/29/21 03:00 POC ABG pCO2 41.6 mmHg (32.0-48.0) 05/24/21 03:44 ABG pCO2 36.2 mm Hg 05/29/21 03:00 POC ABG pO2 87.6 mmHg (83-108) 05/24/21 03:44 ABG pO2 138.1 mm Hg (80.0-90.0) H 05/29/21 03:00 POC ABG HCO3 17.5 05/24/21 03:44 ABG O2 Saturation 98.7 % (95.0-99.0) 05/29/21 03:00 Abnormal lab findings: Abnormal Labs 05/23/21 05/23/21 05/23/21 05:55 09:38 09:38 WBC RBC 5.09 H Hct 46.2 H MCHC RDW Lymph % (Auto) Johnston % (Auto) Johnston # (Auto) Seg Neutrophils % Seg Neuts % (Manual) Lymphocytes % (Manual) Seg Neutrophils # Seg Neutrophils # Man Lymphocytes # (Manual) ABG pH 7.265 L ABG pO2 ABG O2 Saturation 94.6 L ABG Base Excess -4.5 L ABG Hemoglobin ABG Potassium ABG Glucose Oxyhemoglobin 92.3 L Sodium Potassium Chloride Carbon Dioxide 20 L BUN Creatinine Glucose 147 H Lactic Acid Calcium Phosphorus Magnesium Total Bilirubin Direct Bilirubin AST Total Creatine Kinase C-Reactive Protein NT-Pro-B Natriuret Pep Total Protein Albumin 3.6 L Arterial Blood Glucose Urine WBC (Auto) Salicylates Acetaminophen 05/23/21 05/23/21 05/23/21 09:38 09:38 09:38 WBC RBC Hct MCHC RDW Lymph % (Auto) Johnston % (Auto) Johnston # (Auto) Seg Neutrophils % Seg Neuts % (Manual) Lymphocytes % (Manual) Seg Neutrophils # Seg Neutrophils # Man Lymphocytes # (Manual) ABG pH ABG pO2 ABG O2 Saturation ABG Base Excess ABG Hemoglobin ABG Potassium ABG Glucose Oxyhemoglobin Sodium Potassium Chloride Carbon Dioxide BUN Creatinine Glucose Lactic Acid Calcium Phosphorus Magnesium Total Bilirubin Direct Bilirubin AST Total Creatine Kinase C-Reactive Protein NT-Pro-B Natriuret Pep 6058 H Total Protein Albumin Arterial Blood Glucose Urine WBC (Auto) Salicylates < 0.3 L Acetaminophen 5.0 L 05/23/21 05/23/21 05/24/21 12:49 Unknown 03:44 WBC RBC Hct MCHC RDW Lymph % (Auto) Johnston % (Auto) Johnston # (Auto) Seg Neutrophils % Seg Neuts % (Manual) Lymphocytes % (Manual) Seg Neutrophils # Seg Neutrophils # Man Lymphocytes # (Manual) ABG pH 7.208 L 7.241 L ABG pO2 52.2 L ABG O2 Saturation 93.5 L 83.7 L ABG Base Excess -6.7 L -3.7 L ABG Hemoglobin ABG Potassium 5.6 H ABG Glucose 53 L Oxyhemoglobin 91.1 L 81.1 L Sodium Potassium Chloride Carbon Dioxide BUN Creatinine Glucose Lactic Acid Calcium Phosphorus Magnesium Total Bilirubin Direct Bilirubin AST Total Creatine Kinase C-Reactive Protein NT-Pro-B Natriuret Pep Total Protein Albumin Arterial Blood Glucose 53 L Urine WBC (Auto) Salicylates Acetaminophen 05/24/21 05/24/21 05/24/21 05:14 05:14 09:35 WBC 23.3 H RBC 5.23 H Hct 47.3 H MCHC RDW 15.3 H Lymph % (Auto) Johnston % (Auto) Johnston # (Auto) Seg Neutrophils % Seg Neuts % (Manual) 12.0 L Lymphocytes % (Manual) 3.0 L Seg Neutrophils # Seg Neutrophils # Man Lymphocytes # (Manual) 0.7 L ABG pH ABG pO2 ABG O2 Saturation ABG Base Excess ABG Hemoglobin ABG Potassium ABG Glucose Oxyhemoglobin Sodium Potassium 6.3 H* D Chloride 107.3 H Carbon Dioxide 20 L BUN 33 H Creatinine 3.5 H D Glucose 56 L Lactic Acid Calcium Phosphorus Magnesium Total Bilirubin 1.90 H Direct Bilirubin AST Total Creatine Kinase 556 H C-Reactive Protein NT-Pro-B Natriuret Pep Total Protein 4.9 L D Albumin 2.8 L Arterial Blood Glucose Urine WBC (Auto) Salicylates Acetaminophen 05/24/21 05/24/21 05/25/21 19:45 Unknown 04:23 WBC 20.1 H RBC Hct MCHC 31 L RDW 15.5 H Lymph % (Auto) Johnston % (Auto) Johnston # (Auto) Seg Neutrophils % Seg Neuts % (Manual) 94.0 H Lymphocytes % (Manual) 5.0 L Seg Neutrophils # Seg Neutrophils # Man 18.9 H Lymphocytes # (Manual) 1.0 L ABG pH ABG pO2 ABG O2 Saturation ABG Base Excess ABG Hemoglobin ABG Potassium ABG Glucose Oxyhemoglobin Sodium Potassium 5.7 H Chloride 108.9 H Carbon Dioxide 21 L BUN 36 H Creatinine 2.6 H Glucose 108 H Lactic Acid Calcium Phosphorus Magnesium Total Bilirubin Direct Bilirubin AST Total Creatine Kinase C-Reactive Protein NT-Pro-B Natriuret Pep Total Protein Albumin Arterial Blood Glucose Urine WBC (Auto) 78.0 H Salicylates Acetaminophen 05/25/21 05/25/21 05/25/21 04:23 09:14 11:46 WBC RBC Hct MCHC RDW Lymph % (Auto) Johnston % (Auto) Johnston # (Auto) Seg Neutrophils % Seg Neuts % (Manual) Lymphocytes % (Manual) Seg Neutrophils # Seg Neutrophils # Man Lymphocytes # (Manual) ABG pH ABG pO2 ABG O2 Saturation ABG Base Excess ABG Hemoglobin ABG Potassium ABG Glucose Oxyhemoglobin Sodium Potassium Chloride 111.4 H Carbon Dioxide 18 L BUN 33 H Creatinine 1.9 H Glucose 121 H Lactic Acid 2.40 H* 2.60 H* Calcium Phosphorus Magnesium Total Bilirubin Direct Bilirubin AST Total Creatine Kinase C-Reactive Protein NT-Pro-B Natriuret Pep Total Protein Albumin Arterial Blood Glucose Urine WBC (Auto) Salicylates Acetaminophen 05/25/21 05/26/21 05/26/21 18:00 03:16 05:55 WBC 22.0 H RBC Hct MCHC RDW 15.3 H Lymph % (Auto) Johnston % (Auto) Johnston # (Auto) Seg Neutrophils % Seg Neuts % (Manual) 96.0 H Lymphocytes % (Manual) 2.0 L Seg Neutrophils # Seg Neutrophils # Man 21.1 H Lymphocytes # (Manual) 0.4 L ABG pH ABG pO2 208.2 H ABG O2 Saturation 99.3 H ABG Base Excess -2.7 L -2.6 L ABG Hemoglobin 13.7 L 13.0 L ABG Potassium ABG Glucose Oxyhemoglobin 94.8 L Sodium Potassium Chloride Carbon Dioxide BUN Creatinine Glucose Lactic Acid Calcium Phosphorus Magnesium Total Bilirubin Direct Bilirubin AST Total Creatine Kinase C-Reactive Protein NT-Pro-B Natriuret Pep Total Protein Albumin Arterial Blood Glucose Urine WBC (Auto) Salicylates Acetaminophen 05/26/21 05/27/21 05/27/21 05:55 03:18 03:18 WBC 21.5 H RBC Hct MCHC RDW 15.5 H Lymph % (Auto) Johnston % (Auto) Johnston # (Auto) Seg Neutrophils % Seg Neuts % (Manual) 92.0 H Lymphocytes % (Manual) 5.0 L Seg Neutrophils # Seg Neutrophils # Man 19.8 H Lymphocytes # (Manual) 1.1 L ABG pH ABG pO2 ABG O2 Saturation ABG Base Excess ABG Hemoglobin ABG Potassium ABG Glucose Oxyhemoglobin Sodium 148 H Potassium Chloride 111.3 H 113.8 H Carbon Dioxide 21 L 20 L BUN 23 H Creatinine Glucose 102 H 103 H Lactic Acid Calcium 8.3 L Phosphorus Magnesium Total Bilirubin 7.80 H Direct Bilirubin AST 112 H Total Creatine Kinase C-Reactive Protein NT-Pro-B Natriuret Pep Total Protein 5.2 L Albumin 2.9 L Arterial Blood Glucose Urine WBC (Auto) Salicylates Acetaminophen 05/27/21 05/28/21 05/28/21 03:18 05:55 10:05 WBC 11.4 H RBC Hct MCHC RDW 15.5 H Lymph % (Auto) 11.2 L Johnston % (Auto) 8.6 H Johnston # (Auto) 1.0 H Seg Neutrophils % 78.9 H Seg Neuts % (Manual) Lymphocytes % (Manual) Seg Neutrophils # 9.0 H Seg Neutrophils # Man Lymphocytes # (Manual) ABG pH ABG pO2 104.7 H ABG O2 Saturation ABG Base Excess -3.1 L ABG Hemoglobin 13.2 L ABG Potassium ABG Glucose Oxyhemoglobin Sodium Potassium Chloride Carbon Dioxide BUN Creatinine Glucose Lactic Acid Calcium Phosphorus Magnesium Total Bilirubin 7.90 H Direct Bilirubin 6.0 H AST 114 H Total Creatine Kinase C-Reactive Protein NT-Pro-B Natriuret Pep Total Protein 5.2 L Albumin 2.8 L Arterial Blood Glucose Urine WBC (Auto) Salicylates Acetaminophen 05/28/21 05/28/21 05/28/21 10:05 10:05 10:05 WBC RBC Hct MCHC RDW Lymph % (Auto) Johnston % (Auto) Johnston # (Auto) Seg Neutrophils % Seg Neuts % (Manual) Lymphocytes % (Manual) Seg Neutrophils # Seg Neutrophils # Man Lymphocytes # (Manual) ABG pH ABG pO2 ABG O2 Saturation ABG Base Excess ABG Hemoglobin ABG Potassium ABG Glucose Oxyhemoglobin Sodium 149 H Potassium Chloride 119.9 H Carbon Dioxide 18 L BUN Creatinine Glucose 103 H Lactic Acid 2.10 H* Calcium Phosphorus Magnesium Total Bilirubin Direct Bilirubin AST Total Creatine Kinase C-Reactive Protein 34.80 H NT-Pro-B Natriuret Pep Total Protein Albumin Arterial Blood Glucose Urine WBC (Auto) Salicylates Acetaminophen 05/29/21 05/29/21 05/29/21 03:00 05:02 05:02 WBC 13.0 H RBC Hct MCHC RDW 15.4 H Lymph % (Auto) Johnston % (Auto) Johnston # (Auto) Seg Neutrophils % Seg Neuts % (Manual) Lymphocytes % (Manual) Seg Neutrophils # Seg Neutrophils # Man Lymphocytes # (Manual) ABG pH ABG pO2 138.1 H ABG O2 Saturation ABG Base Excess -3.6 L ABG Hemoglobin 12.8 L ABG Potassium ABG Glucose Oxyhemoglobin Sodium 150 H Potassium Chloride 119.8 H Carbon Dioxide 18 L BUN Creatinine Glucose 109 H Lactic Acid Calcium Phosphorus 2.20 L Magnesium 1.50 L Total Bilirubin Direct Bilirubin AST Total Creatine Kinase C-Reactive Protein NT-Pro-B Natriuret Pep Total Protein Albumin Arterial Blood Glucose Urine WBC (Auto) Salicylates Acetaminophen
[2021-05-29] MEDS: LORazepam 2 MG/ML VIAL IV PRN ×3 (15:42→23:22)
--- NOTE | 2021-05-29 17:24 | Progress Note ---
Assessment and Plan Drug Overdose // Methamphetamine Dependence // H/o Polysubstance Abuse Acute Respiratory Failure Sepsis s/p Shock Bilateral PNA Acute on Chronic HFrEF // NICMP (EF 20-25%) Moderate MR BRYNN (resolved) Hypernatremia Hypomagnesemia H/o HTN Normal Coronaries (via cath 07/2020) Plan: Suspect tachycardia is physiologic in the setting of withdrawal. Continue Lopressor 12.5mg BID. Will increase when BP permits. Closely monitor volume status while receiving IV fluids. Lasix and Lisinopril on hold as per Nephro recs. Electrolyte correction per Primary/Nephro. Pt seen in conjunction with Dr. Meyers, who agrees with the assessment and plan of care. - Patient Problems (1) Overdose Current Visit: Yes Status: Acute Qualifiers: Encounter type: initial encounter Injury intent: undetermined intent Qualified Code(s): T50.904A - Poisoning by unspecified drugs, medicaments and biological substances, undetermined, initial encounter Subjective Date of service: 05/29/21 Principal diagnosis: Overdose Interval history: Agitated upon assessment. Intermittent episodes of tachycardia. In ST up to the 150s this afternoon. Objective Last Vital Signs Temp 101.3 F H 05/29/21 16:00 Pulse 123 H 05/29/21 16:07 Resp 26 H 05/29/21 15:00 BP 108/57 05/29/21 16:07 Pulse Ox 100 05/29/21 16:07 - Physical Examination General: Other (Intubated) HEENT: Positive: Normocephaly Neck: Positive: neck supple, trachea midline. Negative: JVD/HJR Cardiac: Positive: Tachycardia Lungs: Positive: Ventilated Respirations Neuro: Positive: Other (Agitated) Abdomen: Positive: Soft Skin: Negative: Rash Extremities: Present: edema, warm - Labs and Meds CBC 05/29/21 Range/Units 05:02 WBC 13.0 H (4.5-11.0) K/mm3 RBC 4.08 (3.65-5.03) M/mm3 Hgb 11.8 (11.8-15.2) gm/dl Hct 36.4 (35.5-45.6) % Plt Count 196 (140-440) K/mm3 Comprehensive Metabolic Panel 05/29/21 Range/Units 05:02 Sodium 150 H (137-145) mmol/L Potassium 3.6 (3.6-5.0) mmol/L Chloride 119.8 H (98-107) mmol/L Carbon Dioxide 18 L (22-30) mmol/L BUN 15 (9-20) mg/dL Creatinine 0.8 (0.8-1.3) mg/dL Glucose 109 H (75-100) mg/dL Calcium 8.7 (8.4-10.2) mg/dL - Imaging and Cardiology EKG: report reviewed, image reviewed Echo: report reviewed Cardiac cath: report reviewed - Telemetry EKG Rhythm: Sinus Tachycardia - EKG Sinus rhythms and dysrhythmias: sinus tachycardia Ventricular dysrhythmias: ventricular premature com Repolarization changes or abnormalities: nonspecific abnormality, ST segment, and/or T wave - Allied health notes Allied health notes reviewed: nursing
[2021-05-29] MEDS: ACETAMINOPHEN 650 MG RECT SUPP PR PRN (19:02)
[2021-05-29] MEDS: SENNOSIDES 8.6 MG TAB PO SCH (21:04)
[2021-05-30] MEDS: fentaNYL DRIP Premix 2,000 MCG/100 ML BAG IV SCH ×4 (02:59→19:26)
[2021-05-30] MEDS: LORazepam 2 MG/ML VIAL IV PRN ×5 (03:37→19:12)
[2021-05-30 05:23] LABS: Hematocrit 33.4 % (35.5-45.6); Hemoglobin 10.8 gm/dl (11.8-15.2); Mean Corpuscular HGB Conc 32 % (32-34); Mean Corpuscular Volume 89 fl (84-94); Platelet Count 201 K/mm3 (140-440); Red Blood Count 3.76 M/mm3 (3.65-5.03); Red Cell Distribution Width 15.7 % (13.2-15.2)
[2021-05-30 05:36] LABS: Blood Urea Nitrogen 12 mg/dL (9-20); Calcium 8.4 mg/dL (8.4-10.2); Hemolysis Index 0
[2021-05-30 05:49] LABS: BUN/Creatinine Ratio 17
[2021-05-30] MEDS ORDERED: ZIPRASIDONE MESYLATE 20 MG VIAL IM ONE (08:20)
[2021-05-30] MEDS ORDERED: POTASSIUM CHLORIDE 20 MEQ PACKET FEEDTUBE ONE (08:45)
[2021-05-30] MEDS ORDERED: MAGNESIUM SULFATE 2 GM/50 ML BAG IV ONE (08:46)
[2021-05-30] MEDS: FAMOTIDINE 20 MG/2 ML INJ IV SCH ×2 (09:51→21:27)
[2021-05-30] MEDS: ENOXAPARIN 40 MG/0.4 ML INJ SUB-Q SCH (09:51)
[2021-05-30] MEDS: FOLBEE PLUS CZ (FOLIC ACID/VIT BCOMP&C/CU/ZNOX) PO SCH (09:52)
[2021-05-30] MEDS: METOPROLOL TARTRATE 25 MG TAB PO SCH ×2 (09:52→21:27)
--- NOTE | 2021-05-30 11:05 | Progress Note ---
<RISSA DAHL - Last Filed: 05/30/21 11:06> Assessment and Plan Assessment and plan: This is a 40-year-old male with known history of HFrEF, methamphetamine dependence, and nicotine dependence admitted for drug overdose and acute metabolic encephalopathy. Patient went into respiratory failure and was intubated requiring ventilatory support. Hospital Course to date: 05/25/2021: Worsening interstitial infiltrates. unclear if this is a developing pneumonia from aspiration/volume overload. Empiric abx coverage. ECHO with bubble study ordered. Placed on iv abx. kidney function improving. 05/26/2021: Tachycardic on levo gtt, advised RN to titrate down as long as MAP > 65. HR improved on my follow up encounter. PCCM titrating vent down. Renal function improving....Cr now 1.3. No indication for [employer] at this time per nephro. 05/27/2021: Extubated yesterday however in respiratory distress, re-intubated. Patient has severe systolic heart failure. Cardiology consulted for severe systolic heart failure. Will need to discuss optimal strategy regarding diuresis. 05/28: Patient remains on the vent. Febrile overnight, no longer on IV abx, leukocytosis improved, will panculture patient for now hold off on IV Abx. D/W CCM plan to wean sedation, depends on patient's mental status possible extub ation today. Patient with low EF 20 to 25%, IVF D/nickolas. FWF for hypernatrenia, repeat lab in the am. 05/29- With increased agitation and tachycardia, maxed out on precedex and fentanyl gtt. Patient appears to be in withdrawal, Ativan added. Remains febrile, off pressors this am, leukocytosis improved. Continue to f/u on culture data. Hypernatremia this am, on D5w per nephro, electrolyte repleted, repeat labs in the am 05/30: Patient very aggresive this am maxed on sedation, X1 dose of Geodeon ordered. Now on low dose Levophed, patient still with low grade fevers this am. Hypotension is probably r/t sedation. Recent cultures with NGTD, UA negative. Continue to monitor for now. Na improved, IVF off this and K repleted, repeat labs in the am. Assessment and Plan #Acute hypoxic respiratory failure #Bilateral Pneumonia #Possible Aspiration - Intially Intubated in the ED on 05/23 for airway protection - Extubated and reintubated on 05/27 for respiratory distress - C/f possible aspiration vs fluid overlaod from IVF boluses received since admit - Vent Setting:CMV-40%,6,12,500 - AM ABG pending - CCM consulted, appreciate recommendations - Continue Nebs per CCM - VAP bundle addressed - Aspiration precaution HOB above 30 - SBT and SAT trials when mentation improve - ABG and CXR per CCM - Continue SPO2 monitoring for SPO2 goal above 92% #HFrEF #Cardiomegaly - Cardiology on consult, appreciated recommendations - 05/25/2021: Echo- EF 20 to 25%. Severe global hypokinesis of left ventricle. Left ventricle is moderately dilated. Doppler flow suggests impaired LV r elaxation. Moderate mitral regurgitation. No pericardial effusion - 08/04/2020: Cardiac cath- Angiographically normal coronary arteries. This is indicative of a nonischemic cardiomyopathy. Mildly elevated biventricular filling pressures with normal cardiac index - 08/02/2020: Echo- EF 18%,Severe global LV hypokinesis. Normal LV diastolic function. LA mildly dilated. Moderate mitral regurgitation with an eccentric MR jet(s),No previous echocardiogram for comparison. - Could be volume overloaded from fluid admin early in admission - Patient on low dose pressors this am, BP still marginal - Will follow cardiology/nephro recs re: diuresis - Continue blood pressure monitor per protocol - Maintain MAP above 65 #Acute Toxic Metabolic Encephalopathy #Overdose by Ingestion #H/o Polysubstance Abuse - amphetamines in tox screen - Patient remains agitated, max on fentanyl and precedex gtt - Appears to be in withdrawal, PRN Ativan added - Titrate sedation for RASS goal of 0 to -1 - Prn analgesia for CPOT greater than 3 - Maintenance of sleep-wake cycle #Acute Kidney Injury due to Acute Tubular Necrosis #Hypokalemia #Hypernatremia-improved - Cr: 3.5 on 03/24, baseline 0.9. suspect dehydration vs toxic exposure vs rhabdo - Renal function improved with IV hydration - Nephrology on consult, appreciated recommendation - Strict intake and output - Daily weight - Avoid nephrotoxic medications; Renally dose medications - Monitor and replace electrolytes as needed - Trend BMP #Sepsis POA #Bilateral Pneumonia #Lactic Acidosis - febrile, elevated lactic, source likely pulmonary - COVID PCR neg - UA is negative - Blood culture, Urine culture, and sputum culture pending - Completed 3days of IV Abx - Will hold off on IV Abx for now - Continue to F/U on B.cult - Daily CBC monitor - Consider ID consult if with persistent fever or/and if leukocytosis reoccur #DVT Prophylaxis - AC- Lovenox SuQ - SCDs to bilateral lower extremities while in bed The high probability of a clinically significant, sudden or life threatening deterioration of the [multiple] system(s) required my full and direct attention, intervention and personal management. The aggregate critical care time was [60] minutes. This time is in addition to time spent performing reported procedures but includes the following: [x] Data Review and interpretation [x] Patient assessment and monitoring of vital signs [x] Documentation [x] Medication orders and management Disposition Plan: ICU Total Time Spent with Patient (Minutes): 60 History Interval history: Patient seen and examined at the bedside. Remains Intubated, maxed on fentanyl and precedex gtt, and receiving PRN Ativan. Per RN patient was very agitated and combative this am, HR as high as 160 X1 dose of Geodeon ordered. Patient is now a RASS of -3, BP dropped now on low dose levophed. Hospitalist Physical - Constitutional Vitals: Temp Pulse Resp BP Pulse Ox 98.5 F 75 0 L 86/48 100 05/30/21 08:00 05/30/21 10:00 05/30/21 10:00 05/30/21 10:00 05/30/21 10:00 General appearance: Present: mild distress, obese, other (Intubated and sedated) - EENT Eyes: Present: PERRL - Respiratory Respiratory effort: normal Respiratory: bilateral: diminished - Cardiovascular Rhythm: regular Heart Sounds: Present: S1 & S2 - Extremities Extremities: no ischemia, pulses intact, pulses symmetrical Extremity abnormal: edema - Peripheral Assessment Generalized Edema Type: Non-pitting Edema Degree: 1+ Capillary Refill: < 3 seconds Skin Temperature: Warm Peripheral Pulses: within normal limits - Abdominal General gastrointestinal: soft, non-distended, hypoactive bowel sounds - Integumentary Integumentary: Present: warm, dry - Psychiatric Psychiatric: other (Intubated and sedated) - Neurologic Neurologic: other (Intubated and sedated) - Allied Health Allied health notes reviewed: nursing HEART Score - HEART Score Troponin: Troponin T < 0.010 ng/mL (0.00-0.029) 05/23/21 09:38 Results - Labs CBC & Chem 7: 05/30/21 04:29 05/30/21 04:29 Labs: Laboratory Last Values WBC 10.6 K/mm3 (4.5-11.0) 05/30/21 04:29 RBC 3.76 M/mm3 (3.65-5.03) 05/30/21 04:29 Hgb 10.8 gm/dl (11.8-15.2) L 05/30/21 04:29 Hct 33.4 % (35.5-45.6) L 05/30/21 04:29 MCV 89 fl (84-94) 05/30/21 04:29 MCH 29 pg (28-32) 05/30/21 04:29 MCHC 32 % (32-34) 05/30/21 04:29 RDW 15.7 % (13.2-15.2) H 05/30/21 04:29 Plt Count 201 K/mm3 (140-440) 05/30/21 04:29 Lymph % (Auto) 11.2 % (13.4-35.0) L 05/28/21 10:05 [place] % (Auto) 8.6 % (0.0-7.3) H 05/28/21 10:05 Eos % (Auto) 0.8 % (0.0-4.3) 05/28/21 10:05 Baso % (Auto) 0.5 % (0.0-1.8) 05/28/21 10:05 Lymph # (Auto) 1.3 K/mm3 (1.2-5.4) 05/28/21 10:05 [place] # (Auto) 1.0 K/mm3 (0.0-0.8) H 05/28/21 10:05 Eos # (Auto) 0.1 K/mm3 (0.0-0.4) 05/28/21 10:05 Baso # (Auto) 0.1 K/mm3 (0.0-0.1) 05/28/21 10:05 Add Manual Diff Complete 05/27/21 03:18 Total Counted 100 05/27/21 03:18 Seg Neutrophils % 78.9 % (40.0-70.0) H 05/28/21 10:05 Seg Neuts % (Manual) 92.0 % (40.0-70.0) H 05/27/21 03:18 Band Neutrophils % 0 % 05/27/21 03:18 Lymphocytes % (Manual) 5.0 % (13.4-35.0) L 05/27/21 03:18 Reactive Lymphs % (Man) 0 % 05/27/21 03:18 Monocytes % (Manual) 3.0 % (0.0-7.3) 05/27/21 03:18 Eosinophils % (Manual) 0 % (0.0-4.3) 05/27/21 03:18 Basophils % (Manual) 0 % (0.0-1.8) 05/27/21 03:18 Metamyelocytes % 0 % 05/27/21 03:18 Myelocytes % 0 % 05/27/21 03:18 Promyelocytes % 0 % 05/27/21 03:18 Blast Cells % 0 % 05/27/21 03:18 Nucleated RBC % Not Reportable 05/27/21 03:18 Seg Neutrophils # 9.0 K/mm3 (1.8-7.7) H 05/28/21 10:05 Seg Neutrophils # Man 19.8 K/mm3 (1.8-7.7) H 05/27/21 03:18 Band Neutrophils # 0.0 K/mm3 05/27/21 03:18 Lymphocytes # (Manual) 1.1 K/mm3 (1.2-5.4) L 05/27/21 03:18 Abs React Lymphs (Man) 0.0 K/mm3 05/27/21 03:18 Monocytes # (Manual) 0.6 K/mm3 (0.0-0.8) 05/27/21 03:18 Eosinophils # (Manual) 0.0 K/mm3 (0.0-0.4) 05/27/21 03:18 Basophils # (Manual) 0.0 K/mm3 (0.0-0.1) 05/27/21 03:18 Metamyelocytes # 0.0 K/mm3 05/27/21 03:18 Myelocytes # 0.0 K/mm3 05/27/21 03:18 Promyelocytes # 0.0 K/mm3 05/27/21 03:18 Blast Cells # 0.0 K/mm3 05/27/21 03:18 WBC Morphology Not Reportable 05/27/21 03:18 Hypersegmented Neuts Not Reportable 05/27/21 03:18 Hyposegmented Neuts Not Reportable 05/27/21 03:18 Hypogranular Neuts Not Reportable 05/27/21 03:18 Smudge Cells Not Reportable 05/27/21 03:18 Toxic Granulation Not Reportable 05/27/21 03:18 Toxic Vacuolation Not Reportable 05/27/21 03:18 Dohle Bodies Not Reportable 05/27/21 03:18 Pelger-Huet Anomaly Not Reportable 05/27/21 03:18 Glenn Rods Not Reportable 05/27/21 03:18 Platelet Estimate Consistent w auto 05/27/21 03:18 Clumped Platelets Not Reportable 05/27/21 03:18 Plt Clumps, EDTA Not Reportable 05/27/21 03:18 Large Platelets Not Reportable 05/27/21 03:18 Giant Platelets Not Reportable 05/27/21 03:18 Platelet Satelliting Not Reportable 05/27/21 03:18 Plt Morphology Comment Not Reportable 05/27/21 03:18 RBC Morphology Normal 05/27/21 03:18 Dimorphic RBCs Not Reportable 05/27/21 03:18 Polychromasia Not Reportable 05/27/21 03:18 Hypochromasia Not Reportable 05/27/21 03:18 Poikilocytosis Not Reportable 05/27/21 03:18 Anisocytosis Not Reportable 05/27/21 03:18 Microcytosis Not Reportable 05/27/21 03:18 Macrocytosis Not Reportable 05/27/21 03:18 Spherocytes Not Reportable 05/27/21 03:18 Pappenheimer Bodies Not Reportable 05/27/21 03:18 Sickle Cells Not Reportable 05/27/21 03:18 Target Cells Not Reportable 05/27/21 03:18 Tear Drop Cells Not Reportable 05/27/21 03:18 Ovalocytes Not Reportable 05/27/21 03:18 Helmet Cells Not Reportable 05/27/21 03:18 [place] Bodies Not Reportable 05/27/21 03:18 [place] Rings Not Reportable 05/27/21 03:18 [place] Cells Not Reportable 05/27/21 03:18 Bite Cells Not Reportable 05/27/21 03:18 Crenated Cell Not Reportable 05/27/21 03:18 Elliptocytes Not Reportable 05/27/21 03:18 Acanthocytes (Spur) Not Reportable 05/27/21 03:18 Rouleaux Not Reportable 05/27/21 03:18 Hemoglobin C Crystals Not Reportable 05/27/21 03:18 Schistocytes Not Reportable 05/27/21 03:18 Malaria parasites Not Reportable 05/27/21 03:18 Frandy Bodies Not Reportable 05/27/21 03:18 Hem Pathologist Commnt No 05/27/21 03:18 ABG pH 7.380 pH Units (7.350-7.450) 05/29/21 03:00 POC ABG pCO2 41.6 mmHg (32.0-48.0) 05/24/21 03:44 ABG pCO2 36.2 mm Hg 05/29/21 03:00 POC ABG pO2 87.6 mmHg (83-108) 05/24/21 03:44 ABG pO2 138.1 mm Hg (80.0-90.0) H 05/29/21 03:00 POC ABG HCO3 17.5 05/24/21 03:44 ABG HCO3 21.0 mmol/L (20.0-26.0) 05/29/21 03:00 ABG O2 Saturation 98.7 % (95.0-99.0) 05/29/21 03:00 ABG O2 Content 17.5 (0.0-44) 05/29/21 03:00 POC ABG Base Excess -9.5 05/24/21 03:44 ABG Base Excess -3.6 mmol/L (-2.0-3.0) L 05/29/21 03:00 ABG Hemoglobin 12.8 gm/dl (14.0-18.0) L 05/29/21 03:00 ABG Oxyhemoglobin 94.8 (94-98) 05/24/21 03:44 ABG Carboxyhemoglobin 2.0 % (0.0-5.0) 05/29/21 03:00 ABG Methemoglobin 0.5 % (0.0-1.5) 05/29/21 03:00 ABG Sodium 137.9 mmol/L (136.0-145.0) 05/24/21 03:44 ABG Potassium 5.6 mmol/L (3.40-4.50) H 05/24/21 03:44 ABG Chloride 105.0 mmol/L (98-107) 05/24/21 03:44 ABG Glucose 53 mg/dL (65-95) L 05/24/21 03:44 Oxyhemoglobin 96.1 % (95.0-99.0) 05/29/21 03:00 Carboxyhemoglobin 0.8 (0.5-1.5) 05/24/21 03:44 FiO2 40 % 05/29/21 03:00 FiO2 % 100.0 05/24/21 03:44 Sodium 141 mmol/L (137-145) D 05/30/21 04:29 Potassium 3.2 mmol/L (3.6-5.0) L 05/30/21 04:29 Chloride 112.4 mmol/L (98-107) H 05/30/21 04:29 Carbon Dioxide 21 mmol/L (22-30) L 05/30/21 04:29 Anion Gap 11 mmol/L 05/30/21 04:29 BUN 12 mg/dL (9-20) 05/30/21 04:29 Creatinine 0.7 mg/dL (0.8-1.3) L 05/30/21 04:29 Estimated GFR > 60 ml/min 05/30/21 04:29 BUN/Creatinine Ratio 17 % 05/30/21 04:29 Glucose 128 mg/dL (75-100) H 05/30/21 04:29 POC Glucose 122 mg/dL (70-105) H 05/29/21 23:37 Lactic Acid 2.10 mmol/L (0.7-2.0) H* 05/28/21 10:05 Calcium 8.4 mg/dL (8.4-10.2) 05/30/21 04:29 Phosphorus 3.40 mg/dL (2.5-4.5) D 05/30/21 04:29 Magnesium 1.70 mg/dL (1.7-2.3) 05/30/21 04:29 Total Bilirubin 7.80 mg/dL (0.1-1.2) H 05/27/21 03:18 Total Bilirubin 7.90 mg/dL (0.1-1.2) H 05/27/21 03:18 Direct Bilirubin 6.0 mg/dL (0-0.2) H 05/27/21 03:18 Indirect Bilirubin 1.9 mg/dL 05/27/21 03:18 AST 112 units/L (5-40) H 05/27/21 03:18 AST 114 units/L (5-40) H 05/27/21 03:18 ALT 38 units/L (7-56) 05/27/21 03:18 ALT 38 units/L (7-56) 05/27/21 03:18 Alkaline Phosphatase 111 units/L (35-129) 05/27/21 03:18 Alkaline Phosphatase 126 units/L (35-129) 05/27/21 03:18 Total Creatine Kinase 556 units/L (55-170) H 05/24/21 09:35 Troponin T < 0.010 ng/mL (0.00-0.029) 05/23/21 09:38 C-Reactive Protein 34.80 mg/dL (0.00-1.30) H 05/28/21 10:05 NT-Pro-B Natriuret Pep 6058 pg/mL (0-450) H 05/23/21 09:38 Total Protein 5.2 g/dL (6.3-8.2) L 05/27/21 03:18 Total Protein 5.2 g/dL (6.3-8.2) L 05/27/21 03:18 Albumin 2.8 g/dL (3.9-5) L 05/27/21 03:18 Albumin 2.9 g/dL (3.9-5) L 05/27/21 03:18 Albumin/Globulin Ratio 1.2 % 05/27/21 03:18 Albumin/Globulin Ratio 1.3 % 05/27/21 03:18 Procalcitonin 12.51 ng/mL (<0.15) 05/28/21 10:05 Arterial Blood Glucose 53 mg/dL (65-95) L 05/24/21 03:44 Arterial Blood Ionized Calcium 4.6 mg/dL (4.6-5.3) 05/24/21 03:44 Urine Color Sherri (Yellow) 05/28/21 12:20 Urine Turbidity Clear (Clear) 05/28/21 12:20 Urine pH 6.0 (5.0-7.0) 05/28/21 12:20 Ur Specific [place] 1.017 (1.003-1.030) 05/28/21 12:20 Urine Protein 30 mg/dl mg/dL (Negative) 05/28/21 12:20 Urine Glucose (UA) Neg mg/dL (Negative) 05/28/21 12:20 Urine Ketones Neg mg/dL (Negative) 05/28/21 12:20 Urine Blood Mod (Negative) 05/28/21 12:20 Urine Nitrite Neg (Negative) 05/28/21 12:20 Urine Bilirubin Mod (Negative) 05/28/21 12:20 Urine Ictotest Positive (Negative) 05/28/21 12:20 Urine Urobilinogen 4.0 mg/dL (<2.0) 05/28/21 12:20 Ur Leukocyte Esterase Neg (Negative) 05/28/21 12:20 Urine WBC (Auto) 3.0 /HPF (0.0-6.0) 05/28/21 12:20 Urine RBC (Auto) 4.0 /HPF (0.0-6.0) 05/28/21 12:20 U Epithel Cells (Auto) < 1.0 /HPF (0-13.0) 05/28/21 12:20 Urine Bacteria (Auto) 1+ /HPF (Negative) 05/28/21 12:20 Urine Mucus Few /HPF 05/28/21 12:20 Urine Yeast (Budding) 1+ /HPF 05/24/21 Unknown Salicylates < 0.3 mg/dL (2.8-20.0) L 05/23/21 09:38 Urine Opiates Screen Negative 05/23/21 09:41 Urine Methadone Screen Negative 05/23/21 09:41 Acetaminophen 5.0 ug/mL (10.0-30.0) L 05/23/21 09:38 Ur Barbiturates Screen Negative 05/23/21 09:41 Ur Phencyclidine Scrn Negative 05/23/21 09:41 Ur Amphetamines Screen Positive 05/23/21 09:41 U Benzodiazepines Scrn Negative 05/23/21 09:41 Urine Cocaine Screen Negative 05/23/21 09:41 U Marijuana (THC) Screen Negative 05/23/21 09:41 Drugs of Abuse Note Disclamer 05/23/21 09:41 Coronavirus (PCR) Negative (Negative) 05/26/21 08:14 Hepatitis A IgM Ab Non-reactive (NonReactive) 05/27/21 16:00 Hep Bs Antigen Non-reactive (Negative) 05/27/21 16:00 Hep B Core IgM Ab Non-reactive (NonReactive) 05/27/21 16:00 Hepatitis C Antibody Non-reactive (NonReactive) 05/27/21 16:00 Microbiology: Microbiology 05/28/21 10:05 Peripheral/Venous Blood Culture - Preliminary NO GROWTH AFTER 24 HOURS 05/28/21 10:05 Peripheral/Venous Blood Culture - Preliminary NO GROWTH AFTER 24 HOURS [place]ardo/IV: Voiding Method Indwelling Catheter Active Medications - Current Medications Current Medications: Generic Name Dose Route Start Last Admin Trade Name Freq PRN Reason Stop Dose Admin Acetaminophen 650 mg 05/23/21 11:43 05/29/21 19:02 Acetaminophen 650 Mg Rect Supp MT 650 mg Q6H PRN Administration Pain MILD(1-3)/Fever >100.5/EPSTEIN Lipase/Protease/Amylase 1 each 05/29/21 08:45 Lipase 10,500/Protease 25,000/Amylase 43,750 (Units) Dr Mitchell FEEDTUBE PRN PRN For Clogged Feeding Tube Enoxaparin Sodium 40 mg 05/28/21 15:00 05/30/21 09:51 Enoxaparin 40 Mg/0.4 Ml Inj SUB-Q 40 mg QDAY@1000 MARK Administration Famotidine 20 mg 05/25/21 11:00 05/30/21 09:51 Famotidine 20 Mg/2 Ml Inj IV 20 mg BID MARK Administration Hydromorphone HCl 0.5 mg 05/23/21 11:43 05/29/21 09:18 Hydromorphone 1 Mg/1 Ml Inj IV 0.5 mg Q24H PRN Administration Pain , Severe (7-10) Dexmedetomidine HCl 400 mcg/ 104 mls @ 5.307 mls/hr 05/24/21 05:00 05/30/21 08:37 Sodium Chloride IV 1.4 mcg/kg/hr TITRATE MARK 37.149 mls/hr Administration Protocol 0.2 MCG/KG/HR NORepinephrine/NS 8 MG-250 ML 8 mg in 250 mls @ 3.75 mls/hr 05/24/21 11:00 05/30/21 10:46 Norepinephrine/Ns 8 Mg-250 Ml (Double Conc) IV 4 mcg/min TITRATE MARK 7.5 mls/hr Titration Protocol 2 MCG/MIN Fentanyl Citrate 2,000 mcg in 100 mls @ 5.103 mls/hr 05/27/21 07:00 05/30/21 09:50 Fentanyl Drip Premix IV 4 mcg/kg/hr TITR MARK 20.412 mls/hr Administration Protocol 1 MCG/KG/HR Dextrose 1,000 mls @ 75 mls/hr 05/28/21 11:00 05/29/21 22:57 D5w IV 75 mls/hr DIRECT MAKR Administration Lorazepam 1 mg 05/29/21 15:40 05/30/21 07:24 Lorazepam 2 Mg/Ml Vial IV 1 mg Q4H PRN Administration Agitation Metoprolol Tartrate 12.5 mg 05/28/21 14:00 05/30/21 09:52 Metoprolol Tartrate 25 Mg Tab PO Not Given BID MARK Morphine Sulfate 2 mg 05/23/21 11:43 Morphine 2 Mg/1 Ml Inj IV Q24H PRN Pain, Moderate (4-6) Ondansetron HCl 4 mg 05/23/21 11:43 Ondansetron 4 Mg/2 Ml Inj IV Q8H PRN Nausea And Vomiting Senna 17.2 mg 05/28/21 22:00 05/29/21 21:04 Sennosides 8.6 Mg Tab PO 17.2 mg QHS MARK Administration Simple Syrup 15 ml 05/29/21 08:45 Simple Syrup 15 Ml FEEDTUBE PRN PRN Hypoglycemia Simple Syrup 30 ml 05/29/21 08:45 Simple Syrup 15 Ml FEEDTUBE PRN PRN Hypoglycemia Sodium Bicarbonate 325 mg 05/29/21 08:45 Sodium Bicarbonate 325 Mg Tab FEEDTUBE PRN PRN For Clogged Feeding Tube Sodium Chloride 10 ml 05/23/21 22:00 05/30/21 09:52 Sodium Chloride 0.9% 10 Ml Flush Syringe IV 10 ml BID MARK Administration Sodium Chloride 10 ml 05/23/21 11:43 Sodium Chloride 0.9% 10 Ml Flush Syringe IV PRN PRN LINE FLUSH Vitamin B Complex/Folic Acid 1 each 05/30/21 10:00 05/30/21 09:52 [place] Plus Cz (Folic Acid/Vit Bcomp&C/Cu/Znox) PO 1 each QDAY MARK Administration Nutrition/Malnutrition Assess - Dietary Evaluation Nutrition/Malnutrition Findings: Nutrition Notes Start: 05/28/21 12:16 Freq: Status: Active Protocol: Document 05/29/21 12:42 RS (Rec: 05/29/21 13:00 RS [id number]) Nutrition Notes Need for Assessment generated from: MD Order Initial or Follow up Reassessment Current Diagnosis Heart Failure,Respiratory Failure Other Pertinent Diagnosis Acute encephalopathy, Overdose , Methamphetamine dependence Current Diet Vital HP Labs/Tests Na: 150 Cl: 119.8 CO2:18 Pertinent Medications Norepinephrine 3.75ml/hr IV Height 6 ft Weight 102.058 kg [place] Body Weight (kg) 80.90 BMI 30.5 Weight Status Obese Subjective/Other Information MD consult for TF and Skin risk assessment. Rod score of 16; pt intubated. D5 drip not started d/t low EF. Pt has been NPO for 7 days. Burn Absent Trauma Absent Minimum of two criteria No Energy Intake (severe) < or equal to 50% Estimated Energy Requirement > or equal to 5 days #1 Nutrition Diagnosis Inadequate oral intake Diagnosis Progress(for reassessment Continues documentation) Is patient on ventilator? Yes Is Patient Ambulatory and/or Out of Bed No REE-([facility]-confined to bed) 6514.912 Calculation Used for Recommendations 65-70% energy needs Additional Notes Energy needs: 4499-3208 kcal/ day Pro needs 2g/kg IBW: 162g/day Fluid needs 1ml/kcal Nutrition Intervention Change Diet Order: Vital HP at 70mL/hr Nutrition Support: Initiate Vital HP at 10mL/hr and increase by 10mL q8hr until goal rate of 70ml/hr. Free water flush of 200mL until hypernatremia resolves. Free water flush of 75mL q4hr once hypernatremia is resolved . Kcal 1,680 Protein (gm) 147 Fluid (mL) 1,404 Goal #1 Meet at least 75% of kcal/PRO needs via TF Anticipated Discharge Needs: Unable to identify at this time Follow-Up By: 05/31/21 Additional Comments F/U for TF initiation/ tolerance <LUZ LEE - Last Filed: 05/31/21 07:18> Assessment and Plan Assessment and plan: I saw and evaluated the patient. I agree with the findings and the plan of care as documented in the Nurse Practitioner's~note, with the following corrections and additions. Hospitalist Physical - Constitutional Vitals: Temp Pulse Resp BP Pulse Ox 99.2 F 88 14 80/46 99 05/31/21 04:00 05/31/21 06:00 05/31/21 06:00 05/31/21 06:00 05/31/21 06:00 HEART Score - HEART Score Troponin: Troponin T < 0.010 ng/mL (0.00-0.029) 05/23/21 09:38 Results - Labs CBC & Chem 7: 05/31/21 04:00 05/31/21 04:00 Labs: Laboratory Last Values WBC 11.2 K/mm3 (4.5-11.0) H 05/31/21 04:00 RBC 3.83 M/mm3 (3.65-5.03) 05/31/21 04:00 Hgb 10.9 gm/dl (11.8-15.2) L 05/31/21 04:00 Hct 34.3 % (35.5-45.6) L 05/31/21 04:00 MCV 90 fl (84-94) 05/31/21 04:00 MCH 28 pg (28-32) 05/31/21 04:00 MCHC 32 % (32-34) 05/31/21 04:00 RDW 15.4 % (13.2-15.2) H 05/31/21 04:00 Plt Count 259 K/mm3 (140-440) 05/31/21 04:00 Lymph % (Auto) 11.2 % (13.4-35.0) L 05/28/21 10:05 [place] % (Auto) 8.6 % (0.0-7.3) H 05/28/21 10:05 Eos % (Auto) 0.8 % (0.0-4.3) 05/28/21 10:05 Baso % (Auto) 0.5 % (0.0-1.8) 05/28/21 10:05 Lymph # (Auto) 1.3 K/mm3 (1.2-5.4) 05/28/21 10:05 [place] # (Auto) 1.0 K/mm3 (0.0-0.8) H 05/28/21 10:05 Eos # (Auto) 0.1 K/mm3 (0.0-0.4) 05/28/21 10:05 Baso # (Auto) 0.1 K/mm3 (0.0-0.1) 05/28/21 10:05 Add Manual Diff Complete 05/27/21 03:18 Total Counted 100 05/27/21 03:18 Seg Neutrophils % 78.9 % (40.0-70.0) H 05/28/21 10:05 Seg Neuts % (Manual) 92.0 % (40.0-70.0) H 05/27/21 03:18 Band Neutrophils % 0 % 05/27/21 03:18 Lymphocytes % (Manual) 5.0 % (13.4-35.0) L 05/27/21 03:18 Reactive Lymphs % (Man) 0 % 05/27/21 03:18 Monocytes % (Manual) 3.0 % (0.0-7.3) 05/27/21 03:18 Eosinophils % (Manual) 0 % (0.0-4.3) 05/27/21 03:18 Basophils % (Manual) 0 % (0.0-1.8) 05/27/21 03:18 Metamyelocytes % 0 % 05/27/21 03:18 Myelocytes % 0 % 05/27/21 03:18 Promyelocytes % 0 % 05/27/21 03:18 Blast Cells % 0 % 05/27/21 03:18 Nucleated RBC % Not Reportable 05/27/21 03:18 Seg Neutrophils # 9.0 K/mm3 (1.8-7.7) H 05/28/21 10:05 Seg Neutrophils # Man 19.8 K/mm3 (1.8-7.7) H 05/27/21 03:18 Band Neutrophils # 0.0 K/mm3 05/27/21 03:18 Lymphocytes # (Manual) 1.1 K/mm3 (1.2-5.4) L 05/27/21 03:18 Abs React Lymphs (Man) 0.0 K/mm3 05/27/21 03:18 Monocytes # (Manual) 0.6 K/mm3 (0.0-0.8) 05/27/21 03:18 Eosinophils # (Manual) 0.0 K/mm3 (0.0-0.4) 05/27/21 03:18 Basophils # (Manual) 0.0 K/mm3 (0.0-0.1) 05/27/21 03:18 Metamyelocytes # 0.0 K/mm3 05/27/21 03:18 Myelocytes # 0.0 K/mm3 05/27/21 03:18 Promyelocytes # 0.0 K/mm3 05/27/21 03:18 Blast Cells # 0.0 K/mm3 05/27/21 03:18 WBC Morphology Not Reportable 05/27/21 03:18 Hypersegmented Neuts Not Reportable 05/27/21 03:18 Hyposegmented Neuts Not Reportable 05/27/21 03:18 Hypogranular Neuts Not Reportable 05/27/21 03:18 Smudge Cells Not Reportable 05/27/21 03:18 Toxic Granulation Not Reportable 05/27/21 03:18 Toxic Vacuolation Not Reportable 05/27/21 03:18 Dohle Bodies Not Reportable 05/27/21 03:18 Pelger-Huet Anomaly Not Reportable 05/27/21 03:18 Glenn Rods Not Reportable 05/27/21 03:18 Platelet Estimate Consistent w auto 05/27/21 03:18 Clumped Platelets Not Reportable 05/27/21 03:18 Plt Clumps, EDTA Not Reportable 05/27/21 03:18 Large Platelets Not Reportable 05/27/21 03:18 Giant Platelets Not Reportable 05/27/21 03:18 Platelet Satelliting Not Reportable 05/27/21 03:18 Plt Morphology Comment Not Reportable 05/27/21 03:18 RBC Morphology Normal 05/27/21 03:18 Dimorphic RBCs Not Reportable 05/27/21 03:18 Polychromasia Not Reportable 05/27/21 03:18 Hypochromasia Not Reportable 05/27/21 03:18 Poikilocytosis Not Reportable 05/27/21 03:18 Anisocytosis Not Reportable 05/27/21 03:18 Microcytosis Not Reportable 05/27/21 03:18 Macrocytosis Not Reportable 05/27/21 03:18 Spherocytes Not Reportable 05/27/21 03:18 Pappenheimer Bodies Not Reportable 05/27/21 03:18 Sickle Cells Not Reportable 05/27/21 03:18 Target Cells Not Reportable 05/27/21 03:18 Tear Drop Cells Not Reportable 05/27/21 03:18 Ovalocytes Not Reportable 05/27/21 03:18 Helmet Cells Not Reportable 05/27/21 03:18 [place] Bodies Not Reportable 05/27/21 03:18 [place] Rings Not Reportable 05/27/21 03:18 Giorgio Cells Not Reportable 05/27/21 03:18 Bite Cells Not Reportable 05/27/21 03:18 Crenated Cell Not Reportable 05/27/21 03:18 Elliptocytes Not Reportable 05/27/21 03:18 Acanthocytes (Spur) Not Reportable 05/27/21 03:18 Rouleaux Not Reportable 05/27/21 03:18 Hemoglobin C Crystals Not Reportable 05/27/21 03:18 Schistocytes Not Reportable 05/27/21 03:18 Malaria parasites Not Reportable 05/27/21 03:18 Frandy Bodies Not Reportable 05/27/21 03:18 Hem Pathologist Commnt No 05/27/21 03:18 ABG pH 7.380 pH Units (7.350-7.450) 05/29/21 03:00 POC ABG pCO2 41.6 mmHg (32.0-48.0) 05/24/21 03:44 ABG pCO2 36.2 mm Hg 05/29/21 03:00 POC ABG pO2 87.6 mmHg (83-108) 05/24/21 03:44 ABG pO2 138.1 mm Hg (80.0-90.0) H 05/29/21 03:00 POC ABG HCO3 17.5 05/24/21 03:44 ABG HCO3 21.0 mmol/L (20.0-26.0) 05/29/21 03:00 ABG O2 Saturation 98.7 % (95.0-99.0) 05/29/21 03:00 ABG O2 Content 17.5 (0.0-44) 05/29/21 03:00 POC ABG Base Excess -9.5 05/24/21 03:44 ABG Base Excess -3.6 mmol/L (-2.0-3.0) L 05/29/21 03:00 ABG Hemoglobin 12.8 gm/dl (14.0-18.0) L 05/29/21 03:00 ABG Oxyhemoglobin 94.8 (94-98) 05/24/21 03:44 ABG Carboxyhemoglobin 2.0 % (0.0-5.0) 05/29/21 03:00 ABG Methemoglobin 0.5 % (0.0-1.5) 05/29/21 03:00 ABG Sodium 137.9 mmol/L (136.0-145.0) 05/24/21 03:44 ABG Potassium 5.6 mmol/L (3.40-4.50) H 05/24/21 03:44 ABG Chloride 105.0 mmol/L (98-107) 05/24/21 03:44 ABG Glucose 53 mg/dL (65-95) L 05/24/21 03:44 Oxyhemoglobin 96.1 % (95.0-99.0) 05/29/21 03:00 Carboxyhemoglobin 0.8 (0.5-1.5) 05/24/21 03:44 FiO2 40 % 05/29/21 03:00 FiO2 % 100.0 05/24/21 03:44 Sodium 148 mmol/L (137-145) H 05/31/21 04:00 Potassium 3.8 mmol/L (3.6-5.0) 05/31/21 04:00 Chloride 114.8 mmol/L (98-107) H 05/31/21 04:00 Carbon Dioxide 23 mmol/L (22-30) 05/31/21 04:00 Anion Gap 14 mmol/L 05/31/21 04:00 BUN 14 mg/dL (9-20) 05/31/21 04:00 Creatinine 0.8 mg/dL (0.8-1.3) 05/31/21 04:00 Estimated GFR > 60 ml/min 05/31/21 04:00 BUN/Creatinine Ratio 18 % 05/31/21 04:00 Glucose 151 mg/dL (75-100) H 05/31/21 04:00 POC Glucose 120 mg/dL (70-105) H 05/30/21 23:36 Lactic Acid 2.10 mmol/L (0.7-2.0) H* 05/28/21 10:05 Calcium 8.4 mg/dL (8.4-10.2) 05/31/21 04:00 Phosphorus 2.60 mg/dL (2.5-4.5) D 05/31/21 04:00 Magnesium 1.70 mg/dL (1.7-2.3) 05/31/21 04:00 Total Bilirubin 7.80 mg/dL (0.1-1.2) H 05/27/21 03:18 Total Bilirubin 7.90 mg/dL (0.1-1.2) H 05/27/21 03:18 Direct Bilirubin 6.0 mg/dL (0-0.2) H 05/27/21 03:18 Indirect Bilirubin 1.9 mg/dL 05/27/21 03:18 AST 112 units/L (5-40) H 05/27/21 03:18 AST 114 units/L (5-40) H 05/27/21 03:18 ALT 38 units/L (7-56) 05/27/21 03:18 ALT 38 units/L (7-56) 05/27/21 03:18 Alkaline Phosphatase 111 units/L (35-129) 05/27/21 03:18 Alkaline Phosphatase 126 units/L (35-129) 05/27/21 03:18 Total Creatine Kinase 556 units/L (55-170) H 05/24/21 09:35 Troponin T < 0.010 ng/mL (0.00-0.029) 05/23/21 09:38 C-Reactive Protein 34.80 mg/dL (0.00-1.30) H 05/28/21 10:05 NT-Pro-B Natriuret Pep 6058 pg/mL (0-450) H 05/23/21 09:38 Total Protein 5.2 g/dL (6.3-8.2) L 05/27/21 03:18 Total Protein 5.2 g/dL (6.3-8.2) L 05/27/21 03:18 Albumin 2.8 g/dL (3.9-5) L 05/27/21 03:18 Albumin 2.9 g/dL (3.9-5) L 05/27/21 03:18 Albumin/Globulin Ratio 1.2 % 05/27/21 03:18 Albumin/Globulin Ratio 1.3 % 05/27/21 03:18 Procalcitonin 12.51 ng/mL (<0.15) 05/28/21 10:05 Arterial Blood Glucose 53 mg/dL (65-95) L 05/24/21 03:44 Arterial Blood Ionized Calcium 4.6 mg/dL (4.6-5.3) 05/24/21 03:44 Urine Color Sherri (Yellow) 05/28/21 12:20 Urine Turbidity Clear (Clear) 05/28/21 12:20 Urine pH 6.0 (5.0-7.0) 05/28/21 12:20 Ur Specific [place] 1.017 (1.003-1.030) 05/28/21 12:20 Urine Protein 30 mg/dl mg/dL (Negative) 05/28/21 12:20 Urine Glucose (UA) Neg mg/dL (Negative) 05/28/21 12:20 Urine Ketones Neg mg/dL (Negative) 05/28/21 12:20 Urine Blood Mod (Negative) 05/28/21 12:20 Urine Nitrite Neg (Negative) 05/28/21 12:20 Urine Bilirubin Mod (Negative) 05/28/21 12:20 Urine Ictotest Positive (Negative) 05/28/21 12:20 Urine Urobilinogen 4.0 mg/dL (<2.0) 05/28/21 12:20 Ur Leukocyte Esterase Neg (Negative) 05/28/21 12:20 Urine WBC (Auto) 3.0 /HPF (0.0-6.0) 05/28/21 12:20 Urine RBC (Auto) 4.0 /HPF (0.0-6.0) 05/28/21 12:20 U Epithel Cells (Auto) < 1.0 /HPF (0-13.0) 05/28/21 12:20 Urine Bacteria (Auto) 1+ /HPF (Negative) 05/28/21 12:20 Urine Mucus Few /HPF 05/28/21 12:20 Urine Yeast (Budding) 1+ /HPF 05/24/21 Unknown Salicylates < 0.3 mg/dL (2.8-20.0) L 05/23/21 09:38 Urine Opiates Screen Negative 05/23/21 09:41 Urine Methadone Screen Negative 05/23/21 09:41 Acetaminophen 5.0 ug/mL (10.0-30.0) L 05/23/21 09:38 Ur Barbiturates Screen Negative 05/23/21 09:41 Ur Phencyclidine Scrn Negative 05/23/21 09:41 Ur Amphetamines Screen Positive 05/23/21 09:41 U Benzodiazepines Scrn Negative 05/23/21 09:41 Urine Cocaine Screen Negative 05/23/21 09:41 U Marijuana (THC) Screen Negative 05/23/21 09:41 Drugs of Abuse Note Disclamer 05/23/21 09:41 Coronavirus (PCR) Negative (Negative) 05/26/21 08:14 Hepatitis A IgM Ab Non-reactive (NonReactive) 05/27/21 16:00 Hep Bs Antigen Non-reactive (Negative) 05/27/21 16:00 Hep B Core IgM Ab Non-reactive (NonReactive) 05/27/21 16:00 Hepatitis C Antibody Non-reactive (NonReactive) 05/27/21 16:00 Microbiology: Microbiology 05/28/21 08:50 Tracheal Aspirate Sputum Culture - Final Beta Hemolytic Strep Group F 05/28/21 10:05 Peripheral/Venous Blood Culture - Preliminary NO GROWTH AFTER 48 HOURS 05/28/21 10:05 Peripheral/Venous Blood Culture - Preliminary NO GROWTH AFTER 48 HOURS [place]/IV: Voiding Method Indwelling Catheter Active Medications - Current Medications Current Medications: Generic Name Dose Route Start Last Admin Trade Name Freq PRN Reason Stop Dose Admin Acetaminophen 650 mg 05/23/21 11:43 05/31/21 03:22 Acetaminophen 650 Mg Rect Supp MT 650 mg Q6H PRN Administration Pain MILD(1-3)/Fever >100.5/EPSTEIN Lipase/Protease/Amylase 1 each 05/29/21 08:45 Lipase 10,500/Protease 25,000/Amylase 43,750 (Units) Dr Mitchell FEEDTUBE PRN PRN For Clogged Feeding Tube Enoxaparin Sodium 40 mg 05/28/21 15:00 05/30/21 09:51 Enoxaparin 40 Mg/0.4 Ml Inj SUB-Q 40 mg QDAY@1000 MARK Administration Famotidine 20 mg 05/25/21 11:00 05/30/21 21:27 Famotidine 20 Mg/2 Ml Inj IV 20 mg BID MARK Administration Haloperidol Lactate 5 mg 05/30/21 12:18 05/31/21 02:08 Haloperidol Lactate 5 Mg/1 Ml Inj IV 5 mg Q6H PRN Administration Agitation Hydromorphone HCl 0.5 mg 05/23/21 11:43 05/29/21 09:18 Hydromorphone 1 Mg/1 Ml Inj IV 0.5 mg Q24H PRN Administration Pain , Severe (7-10) Dexmedetomidine HCl 400 mcg/ 104 mls @ 5.307 mls/hr 05/24/21 05:00 05/31/21 05:43 Sodium Chloride IV 1.4 mcg/kg/hr TITRATE MARK 37.149 mls/hr Administration Protocol 0.2 MCG/KG/HR NORepinephrine/NS 8 MG-250 ML 8 mg in 250 mls @ 3.75 mls/hr 05/24/21 11:00 05/31/21 03:20 Norepinephrine/Ns 8 Mg-250 Ml (Double Conc) IV 2 mcg/min TITRATE MARK 3.75 mls/hr Administration Protocol 2 MCG/MIN Fentanyl Citrate 2,000 mcg in 100 mls @ 5.103 mls/hr 05/27/21 07:00 05/31/21 05:22 Fentanyl Drip Premix IV 3 mcg/kg/hr TITR MARK 15.309 mls/hr Administration Protocol 1 MCG/KG/HR Dextrose 1,000 mls @ 75 mls/hr 05/28/21 11:00 05/29/21 22:57 D5w IV 75 mls/hr DIRECT MARK Administration Lorazepam 1 mg 05/29/21 15:40 05/31/21 06:28 Lorazepam 2 Mg/Ml Vial IV 1 mg Q4H PRN Administration Agitation Metoprolol Tartrate 12.5 mg 05/28/21 14:00 05/30/21 21:27 Metoprolol Tartrate 25 Mg Tab PO 12.5 mg BID MARK Administration Morphine Sulfate 2 mg 05/23/21 11:43 Morphine 2 Mg/1 Ml Inj IV Q24H PRN Pain, Moderate (4-6) Ondansetron HCl 4 mg 05/23/21 11:43 Ondansetron 4 Mg/2 Ml Inj IV Q8H PRN Nausea And Vomiting Senna 17.2 mg 05/28/21 22:00 05/30/21 21:28 Sennosides 8.6 Mg Tab PO 17.2 mg QHS MARK Administration Simple Syrup 15 ml 05/29/21 08:45 Simple Syrup 15 Ml FEEDTUBE PRN PRN Hypoglycemia Simple Syrup 30 ml 05/29/21 08:45 Simple Syrup 15 Ml FEEDTUBE PRN PRN Hypoglycemia Sodium Bicarbonate 325 mg 05/29/21 08:45 Sodium Bicarbonate 325 Mg Tab FEEDTUBE PRN PRN For Clogged Feeding Tube Sodium Chloride 10 ml 05/23/21 22:00 05/30/21 21:28 Sodium Chloride 0.9% 10 Ml Flush Syringe IV 10 ml BID MARK Administration Sodium Chloride 10 ml 05/23/21 11:43 Sodium Chloride 0.9% 10 Ml Flush Syringe IV PRN PRN LINE FLUSH Vitamin B Complex/Folic Acid 1 each 05/30/21 10:00 05/30/21 09:52 Fol[place] Plus Cz (Folic Acid/Vit Bcomp&C/Cu/Znox) PO 1 each QDAY MARK Administration Nutrition/Malnutrition Assess - Dietary Evaluation Nutrition/Malnutrition Findings: Nutrition Notes Start: 05/28/21 12:16 Freq: Status: Active Protocol: Document 05/29/21 12:42 RS (Rec: 05/29/21 13:00 RS [id number]) Nutrition Notes Need for Assessment generated from: MD Order Initial or Follow up Reassessment Current Diagnosis Heart Failure,Respiratory Failure Other Pertinent Diagnosis Acute encephalopathy, Overdose , Methamphetamine dependence Current Diet Vital HP Labs/Tests Na: 150 Cl: 119.8 CO2:18 Pertinent Medications Norepinephrine 3.75ml/hr IV Height 6 ft Weight 102.058 kg [place] Body Weight (kg) 80.90 BMI 30.5 Weight Status Obese Subjective/Other Information MD consult for TF and Skin risk assessment. Rod score of 16; pt intubated. D5 drip not started d/t low EF. Pt has been NPO for 7 days. Burn Absent Trauma Absent Minimum of two criteria No Energy Intake (severe) < or equal to 50% Estimated Energy Requirement > or equal to 5 days #1 Nutrition Diagnosis Inadequate oral intake Diagnosis Progress(for reassessment Continues documentation) Is patient on ventilator? Yes Is Patient Ambulatory and/or Out of Bed No REE-(Kin[place]-St. Jeor-confined to bed) [phone] Calculation Used for Recommendations 65-70% energy needs Additional Notes Energy needs: 4630-8268 kcal/ day Pro needs 2g/kg IBW: 162g/day Fluid needs 1ml/kcal Nutrition Intervention Change Diet Order: Vital HP at 70mL/hr Nutrition Support: Initiate Vital HP at 10mL/hr and increase by 10mL q8hr until goal rate of 70ml/hr. Free water flush of 200mL until hypernatremia resolves. Free water flush of 75mL q4hr once hypernatremia is resolved . Kcal 1,680 Protein (gm) 147 Fluid (mL) 1,404 Goal #1 Meet at least 75% of kcal/PRO needs via TF Anticipated Discharge Needs: Unable to identify at this time Follow-Up By: 05/31/21 Additional Comments F/U for TF initiation/ tolerance
[2021-05-30] MEDS ORDERED: WATER FOR INJ Sterile (PF) 10 ML ONE (12:01)
--- NOTE | 2021-05-30 12:33 | Progress Note ---
Assessment and Plan Assessment and Plan 40 y/o male with suspected overdose and metabolic acidosis 05/30/2021: Patient has low-grade temperature up to 201 degree. WBC count is normal. Chest x-ray shows some left lower lobe process could be effusion or consolidation. Blood cultures were drawn and so far negative. Urine appears to be somewhat dirty, however, patient has indwelling Fajardo catheter. We will culture sputum and urine. Patient may require addition of antibiotic depending upon the results. Blood pressure is low and may require IV fluid bolus 05/29/2021:. Appears to have somewhat increased work of breathing on ventilator today. Unable to give a CPAP trial because of follow-up episodes of severe tachycardia. Cardiology is on board. Continue to monitor on current on the mechanical ventilator. Plan to extubate only if mental status improved, respiratory status stable and cardiac rhythm is under control 05/28/21: Extubate again today once patient is more awake. Continue precedex to help with agitation. Will need swallow eval once extubated. Cards is seeing, await any new recs. spoke with them this morning and his cardiomyopathy and systolic heart failure are chronic with normal coronaries on a cath last year sometime in the [facility]. 05/27/21: Get patient to ICU as soon as possible to achieve adequate sedation and mental state control to insure successful extubation. AGree with Precedex 05/26/21: Attempt extubation today once all sedation is off. 05/25/21: follow up echo. Spoke with RT about ABG. States will be in system within the hour. Still pressors but on Precedex, Versed and Fent. needs to be COVID tested. BNP was >6k. Unable to diurese right now given pressor r equirements but need to follow up echo. need to get patient upstairs as soon as possible. Spoke with charge nurse and they are working on this. 1. CXR shows cardiomegaly with some bibasilar changes. Could be fluid. Suggest swabbing for COVID. Check BNP and obtain 2D echo given heart size. 2. Minimal sedation to assess mental status 3. Wean pressors for MAPS >60 4. Follow up renal recs 5. No ABG prior to intubation. Echo should be a bubble study given degree of hypoxemia seen on ABG CCT 31 minutes. Subjective Date of service: 05/30/21 Principal diagnosis: Overdose Interval history: No significant change. Remains on mechanical ventilator. Unable to extubate because of withdrawal symptoms Objective Vital Signs - 12hr 05/30/21 05/30/21 05/30/21 00:30 01:00 01:30 Temperature Pulse Rate 76 117 H 123 H Pulse Rate [ From Monitor] Respiratory 18 20 26 H Rate Blood Pressure 95/41 97/63 113/79 O2 Sat by Pulse 99 100 100 Oximetry 05/30/21 05/30/21 05/30/21 02:00 02:30 03:00 Temperature Pulse Rate 77 90 108 H Pulse Rate [ From Monitor] Respiratory 18 21 24 Rate Blood Pressure 113/79 92/51 92/51 O2 Sat by Pulse 99 100 100 Oximetry 05/30/21 05/30/21 05/30/21 03:30 04:00 04:16 Temperature 100.9 F H Pulse Rate 94 H 117 H 77 Pulse Rate [ 81 From Monitor] Respiratory 18 26 H 8 L Rate Blood Pressure 98/57 90/66 109/71 O2 Sat by Pulse 99 100 99 Oximetry 05/30/21 05/30/21 05/30/21 04:30 05:00 05:30 Temperature Pulse Rate 77 78 80 Pulse Rate [ From Monitor] Respiratory 18 14 19 Rate Blood Pressure 90/66 83/47 90/56 O2 Sat by Pulse 98 99 99 Oximetry 05/30/21 05/30/21 05/30/21 06:00 06:30 07:00 Temperature 100.9 F H Pulse Rate 79 78 137 H Pulse Rate [ From Monitor] Respiratory 18 20 24 Rate Blood Pressure 94/59 92/55 146/82 O2 Sat by Pulse 99 99 100 Oximetry 05/30/21 05/30/21 05/30/21 07:30 08:00 08:30 Temperature 98.5 F Pulse Rate 99 H 110 H 111 H Pulse Rate [ 109 H From Monitor] Respiratory 24 21 19 Rate Blood Pressure 96/55 98/59 103/56 O2 Sat by Pulse 100 100 100 Oximetry 05/30/21 05/30/21 05/30/21 08:43 09:00 09:30 Temperature Pulse Rate 111 H 99 H 76 Pulse Rate [ From Monitor] Respiratory 22 19 Rate Blood Pressure 103/56 106/59 84/45 O2 Sat by Pulse 100 98 Oximetry 05/30/21 05/30/21 05/30/21 10:00 10:30 11:00 Temperature Pulse Rate 75 77 81 Pulse Rate [ From Monitor] Respiratory 0 L 19 19 Rate Blood Pressure 86/48 87/49 90/59 O2 Sat by Pulse 100 99 99 Oximetry 05/30/21 05/30/21 05/30/21 11:15 11:30 11:49 Temperature Pulse Rate 80 79 Pulse Rate [ 80 From Monitor] Respiratory 15 19 Rate Blood Pressure 95/58 O2 Sat by Pulse 99 99 Oximetry 05/30/21 12:00 Temperature 99.2 F Pulse Rate 123 H Pulse Rate [ From Monitor] Respiratory 19 Rate Blood Pressure 92/65 O2 Sat by Pulse 100 Oximetry Constitutional: other (Arousable to verbal stimulation) ENT: oropharynx moist, other (Orally intubated) Ascultation: Bilateral: rhonchi Cardiovascular: regular rate and rhythm (With episodes of tachycardia) Gastrointestinal: normoactive bowel sounds, soft, non-tender CBC and BMP: 05/30/21 04:29 05/30/21 04:29 ABG, PT/INR, D-dimer: ABG ABG pH 7.380 pH Units (7.350-7.450) 05/29/21 03:00 POC ABG pCO2 41.6 mmHg (32.0-48.0) 05/24/21 03:44 ABG pCO2 36.2 mm Hg 05/29/21 03:00 POC ABG pO2 87.6 mmHg (83-108) 05/24/21 03:44 ABG pO2 138.1 mm Hg (80.0-90.0) H 05/29/21 03:00 POC ABG HCO3 17.5 05/24/21 03:44 ABG O2 Saturation 98.7 % (95.0-99.0) 05/29/21 03:00 Abnormal lab findings: Abnormal Labs 05/23/21 05/23/21 05/23/21 05:55 09:38 09:38 WBC RBC 5.09 H Hgb Hct 46.2 H MCHC RDW Lymph % (Auto) Reeves % (Auto) Reeves # (Auto) Seg Neutrophils % Seg Neuts % (Manual) Lymphocytes % (Manual) Seg Neutrophils # Seg Neutrophils # Man Lymphocytes # (Manual) ABG pH 7.265 L ABG pO2 ABG O2 Saturation 94.6 L ABG Base Excess -4.5 L ABG Hemoglobin ABG Potassium ABG Glucose Oxyhemoglobin 92.3 L Sodium Potassium Chloride Carbon Dioxide 20 L BUN Creatinine Glucose 147 H POC Glucose Lactic Acid Calcium Phosphorus Magnesium Total Bilirubin Direct Bilirubin AST Total Creatine Kinase C-Reactive Protein NT-Pro-B Natriuret Pep Total Protein Albumin 3.6 L Arterial Blood Glucose Urine WBC (Auto) Salicylates Acetaminophen 05/23/21 05/23/21 05/23/21 09:38 09:38 09:38 WBC RBC Hgb Hct MCHC RDW Lymph % (Auto) Reeves % (Auto) Reeves # (Auto) Seg Neutrophils % Seg Neuts % (Manual) Lymphocytes % (Manual) Seg Neutrophils # Seg Neutrophils # Man Lymphocytes # (Manual) ABG pH ABG pO2 ABG O2 Saturation ABG Base Excess ABG Hemoglobin ABG Potassium ABG Glucose Oxyhemoglobin Sodium Potassium Chloride Carbon Dioxide BUN Creatinine Glucose POC Glucose Lactic Acid Calcium Phosphorus Magnesium Total Bilirubin Direct Bilirubin AST Total Creatine Kinase C-Reactive Protein NT-Pro-B Natriuret Pep 6058 H Total Protein Albumin Arterial Blood Glucose Urine WBC (Auto) Salicylates < 0.3 L Acetaminophen 5.0 L 05/23/21 05/23/21 05/24/21 12:49 Unknown 03:44 WBC RBC Hgb Hct MCHC RDW Lymph % (Auto) Reeves % (Auto) Reeves # (Auto) Seg Neutrophils % Seg Neuts % (Manual) Lymphocytes % (Manual) Seg Neutrophils # Seg Neutrophils # Man Lymphocytes # (Manual) ABG pH 7.208 L 7.241 L ABG pO2 52.2 L ABG O2 Saturation 93.5 L 83.7 L ABG Base Excess -6.7 L -3.7 L ABG Hemoglobin ABG Potassium 5.6 H ABG Glucose 53 L Oxyhemoglobin 91.1 L 81.1 L Sodium Potassium Chloride Carbon Dioxide BUN Creatinine Glucose POC Glucose Lactic Acid Calcium Phosphorus Magnesium Total Bilirubin Direct Bilirubin AST Total Creatine Kinase C-Reactive Protein NT-Pro-B Natriuret Pep Total Protein Albumin Arterial Blood Glucose 53 L Urine WBC (Auto) Salicylates Acetaminophen 05/24/21 05/24/21 05/24/21 05:14 05:14 09:35 WBC 23.3 H RBC 5.23 H Hgb Hct 47.3 H MCHC RDW 15.3 H Lymph % (Auto) Reeves % (Auto) Reeves # (Auto) Seg Neutrophils % Seg Neuts % (Manual) 12.0 L Lymphocytes % (Manual) 3.0 L Seg Neutrophils # Seg Neutrophils # Man Lymphocytes # (Manual) 0.7 L ABG pH ABG pO2 ABG O2 Saturation ABG Base Excess ABG Hemoglobin ABG Potassium ABG Glucose Oxyhemoglobin Sodium Potassium 6.3 H* D Chloride 107.3 H Carbon Dioxide 20 L BUN 33 H Creatinine 3.5 H D Glucose 56 L POC Glucose Lactic Acid Calcium Phosphorus Magnesium Total Bilirubin 1.90 H Direct Bilirubin AST Total Creatine Kinase 556 H C-Reactive Protein NT-Pro-B Natriuret Pep Total Protein 4.9 L D Albumin 2.8 L Arterial Blood Glucose Urine WBC (Auto) Salicylates Acetaminophen 05/24/21 05/24/21 05/25/21 19:45 Unknown 04:23 WBC 20.1 H RBC Hgb Hct MCHC 31 L RDW 15.5 H Lymph % (Auto) Reeves % (Auto) Reeves # (Auto) Seg Neutrophils % Seg Neuts % (Manual) 94.0 H Lymphocytes % (Manual) 5.0 L Seg Neutrophils # Seg Neutrophils # Man 18.9 H Lymphocytes # (Manual) 1.0 L ABG pH ABG pO2 ABG O2 Saturation ABG Base Excess ABG Hemoglobin ABG Potassium ABG Glucose Oxyhemoglobin Sodium Potassium 5.7 H Chloride 108.9 H Carbon Dioxide 21 L BUN 36 H Creatinine 2.6 H Glucose 108 H POC Glucose Lactic Acid Calcium Phosphorus Magnesium Total Bilirubin Direct Bilirubin AST Total Creatine Kinase C-Reactive Protein NT-Pro-B Natriuret Pep Total Protein Albumin Arterial Blood Glucose Urine WBC (Auto) 78.0 H Salicylates Acetaminophen 05/25/21 05/25/21 05/25/21 04:23 09:14 11:46 WBC RBC Hgb Hct MCHC RDW Lymph % (Auto) Reeves % (Auto) Reeves # (Auto) Seg Neutrophils % Seg Neuts % (Manual) Lymphocytes % (Manual) Seg Neutrophils # Seg Neutrophils # Man Lymphocytes # (Manual) ABG pH ABG pO2 ABG O2 Saturation ABG Base Excess ABG Hemoglobin ABG Potassium ABG Glucose Oxyhemoglobin Sodium Potassium Chloride 111.4 H Carbon Dioxide 18 L BUN 33 H Creatinine 1.9 H Glucose 121 H POC Glucose Lactic Acid 2.40 H* 2.60 H* Calcium Phosphorus Magnesium Total Bilirubin Direct Bilirubin AST Total Creatine Kinase C-Reactive Protein NT-Pro-B Natriuret Pep Total Protein Albumin Arterial Blood Glucose Urine WBC (Auto) Salicylates Acetaminophen 05/25/21 05/26/21 05/26/21 18:00 03:16 05:55 WBC 22.0 H RBC Hgb Hct MCHC RDW 15.3 H Lymph % (Auto) Reeves % (Auto) Reeves # (Auto) Seg Neutrophils % Seg Neuts % (Manual) 96.0 H Lymphocytes % (Manual) 2.0 L Seg Neutrophils # Seg Neutrophils # Man 21.1 H Lymphocytes # (Manual) 0.4 L ABG pH ABG pO2 208.2 H ABG O2 Saturation 99.3 H ABG Base Excess -2.7 L -2.6 L ABG Hemoglobin 13.7 L 13.0 L ABG Potassium ABG Glucose Oxyhemoglobin 94.8 L Sodium Potassium Chloride Carbon Dioxide BUN Creatinine Glucose POC Glucose Lactic Acid Calcium Phosphorus Magnesium Total Bilirubin Direct Bilirubin AST Total Creatine Kinase C-Reactive Protein NT-Pro-B Natriuret Pep Total Protein Albumin Arterial Blood Glucose Urine WBC (Auto) Salicylates Acetaminophen 05/26/21 05/27/21 05/27/21 05:55 03:18 03:18 WBC 21.5 H RBC Hgb Hct MCHC RDW 15.5 H Lymph % (Auto) Reeves % (Auto) Reeves # (Auto) Seg Neutrophils % Seg Neuts % (Manual) 92.0 H Lymphocytes % (Manual) 5.0 L Seg Neutrophils # Seg Neutrophils # Man 19.8 H Lymphocytes # (Manual) 1.1 L ABG pH ABG pO2 ABG O2 Saturation ABG Base Excess ABG Hemoglobin ABG Potassium ABG Glucose Oxyhemoglobin Sodium 148 H Potassium Chloride 111.3 H 113.8 H Carbon Dioxide 21 L 20 L BUN 23 H Creatinine Glucose 102 H 103 H POC Glucose Lactic Acid Calcium 8.3 L Phosphorus Magnesium Total Bilirubin 7.80 H Direct Bilirubin AST 112 H Total Creatine Kinase C-Reactive Protein NT-Pro-B Natriuret Pep Total Protein 5.2 L Albumin 2.9 L Arterial Blood Glucose Urine WBC (Auto) Salicylates Acetaminophen 05/27/21 05/28/21 05/28/21 03:18 05:55 10:05 WBC 11.4 H RBC Hgb Hct MCHC RDW 15.5 H Lymph % (Auto) 11.2 L Reeves % (Auto) 8.6 H Reeves # (Auto) 1.0 H Seg Neutrophils % 78.9 H Seg Neuts % (Manual) Lymphocytes % (Manual) Seg Neutrophils # 9.0 H Seg Neutrophils # Man Lymphocytes # (Manual) ABG pH ABG pO2 104.7 H ABG O2 Saturation ABG Base Excess -3.1 L ABG Hemoglobin 13.2 L ABG Potassium ABG Glucose Oxyhemoglobin Sodium Potassium Chloride Carbon Dioxide BUN Creatinine Glucose POC Glucose Lactic Acid Calcium Phosphorus Magnesium Total Bilirubin 7.90 H Direct Bilirubin 6.0 H AST 114 H Total Creatine Kinase C-Reactive Protein NT-Pro-B Natriuret Pep Total Protein 5.2 L Albumin 2.8 L Arterial Blood Glucose Urine WBC (Auto) Salicylates Acetaminophen 05/28/21 05/28/21 05/28/21 10:05 10:05 10:05 WBC RBC Hgb Hct MCHC RDW Lymph % (Auto) Reeves % (Auto) Reeves # (Auto) Seg Neutrophils % Seg Neuts % (Manual) Lymphocytes % (Manual) Seg Neutrophils # Seg Neutrophils # Man Lymphocytes # (Manual) ABG pH ABG pO2 ABG O2 Saturation ABG Base Excess ABG Hemoglobin ABG Potassium ABG Glucose Oxyhemoglobin Sodium 149 H Potassium Chloride 119.9 H Carbon Dioxide 18 L BUN Creatinine Glucose 103 H POC Glucose Lactic Acid 2.10 H* Calcium Phosphorus Magnesium Total Bilirubin Direct Bilirubin AST Total Creatine Kinase C-Reactive Protein 34.80 H NT-Pro-B Natriuret Pep Total Protein Albumin Arterial Blood Glucose Urine WBC (Auto) Salicylates Acetaminophen 05/29/21 05/29/21 05/29/21 03:00 05:02 05:02 WBC 13.0 H RBC Hgb Hct MCHC RDW 15.4 H Lymph % (Auto) Reeves % (Auto) Reeves # (Auto) Seg Neutrophils % Seg Neuts % (Manual) Lymphocytes % (Manual) Seg Neutrophils # Seg Neutrophils # Man Lymphocytes # (Manual) ABG pH ABG pO2 138.1 H ABG O2 Saturation ABG Base Excess -3.6 L ABG Hemoglobin 12.8 L ABG Potassium ABG Glucose Oxyhemoglobin Sodium 150 H Potassium Chloride 119.8 H Carbon Dioxide 18 L BUN Creatinine Glucose 109 H POC Glucose Lactic Acid Calcium Phosphorus 2.20 L Magnesium 1.50 L Total Bilirubin Direct Bilirubin AST Total Creatine Kinase C-Reactive Protein NT-Pro-B Natriuret Pep Total Protein Albumin Arterial Blood Glucose Urine WBC (Auto) Salicylates Acetaminophen 05/29/21 05/29/21 05/30/21 17:00 23:37 04:29 WBC RBC Hgb 10.8 L Hct 33.4 L MCHC RDW 15.7 H Lymph % (Auto) Reeves % (Auto) Reeves # (Auto) Seg Neutrophils % Seg Neuts % (Manual) Lymphocytes % (Manual) Seg Neutrophils # Seg Neutrophils # Man Lymphocytes # (Manual) ABG pH ABG pO2 ABG O2 Saturation ABG Base Excess ABG Hemoglobin ABG Potassium ABG Glucose Oxyhemoglobin Sodium Potassium Chloride Carbon Dioxide BUN Creatinine Glucose POC Glucose 114 H 122 H Lactic Acid Calcium Phosphorus Magnesium Total Bilirubin Direct Bilirubin AST Total Creatine Kinase C-Reactive Protein NT-Pro-B Natriuret Pep Total Protein Albumin Arterial Blood Glucose Urine WBC (Auto) Salicylates Acetaminophen 05/30/21 04:29 WBC RBC Hgb Hct MCHC RDW Lymph % (Auto) Reeves % (Auto) Reeves # (Auto) Seg Neutrophils % Seg Neuts % (Manual) Lymphocytes % (Manual) Seg Neutrophils # Seg Neutrophils # Man Lymphocytes # (Manual) ABG pH ABG pO2 ABG O2 Saturation ABG Base Excess ABG Hemoglobin ABG Potassium ABG Glucose Oxyhemoglobin Sodium Potassium 3.2 L Chloride 112.4 H Carbon Dioxide 21 L BUN Creatinine 0.7 L Glucose 128 H POC Glucose Lactic Acid Calcium Phosphorus Magnesium Total Bilirubin Direct Bilirubin AST Total Creatine Kinase C-Reactive Protein NT-Pro-B Natriuret Pep Total Protein Albumin Arterial Blood Glucose Urine WBC (Auto) Salicylates Acetaminophen Chest x-ray: image reviewed (Left lower lobe process likely consolidation with possible air bronchogram cannot rule out left effusion.) Allied health notes reviewed: nursing
[2021-05-30] MEDS: HALOPERIDOL LACTATE 5 MG/1 ML INJ IV PRN ×2 (12:54→18:19)
--- NOTE | 2021-05-30 16:19 | Progress Note ---
Assessment and Plan Impression: * Nonoliguric cute kidney injury secondary to ATN * Acute hypoxic respiratory failure --COVID 19 negative * Acute encephalopathy * Hypernatremia * Hypotension * Drug overdose * Hyperkalemia * Hypernatremia Plan: * Renal function has improved - BRYNN resolved * Hypernatremia resolved - Na 141 - will change to 0.45NS at current rate * Continue close monitoring of renal function * Medical management of electrolytes * Vent management per pulm * Pressors prn - maintain MAP>65; * Dose medications for renal function * Strict I/O - maintain christianson catheter in critically ill patient * Avoid potential nephrotoxins * Will follow peripherally Subjective Date of service: 05/30/21 Principal diagnosis: Overdose Interval history: Chart, vitals, labs reviewed. Patient remains intubated Objective - Vital Signs Vital signs: Vital Signs - 12hr 05/30/21 05/30/21 05/30/21 04:30 05:00 05:30 Temperature Pulse Rate 77 78 80 Pulse Rate [ From Monitor] Respiratory 18 14 19 Rate Blood Pressure 90/66 83/47 90/56 O2 Sat by Pulse 98 99 99 Oximetry 05/30/21 05/30/21 05/30/21 06:00 06:30 07:00 Temperature 100.9 F H Pulse Rate 79 78 137 H Pulse Rate [ From Monitor] Respiratory 18 20 24 Rate Blood Pressure 94/59 92/55 146/82 O2 Sat by Pulse 99 99 100 Oximetry 05/30/21 05/30/21 05/30/21 07:30 08:00 08:30 Temperature 98.5 F Pulse Rate 99 H 110 H 111 H Pulse Rate [ 109 H From Monitor] Respiratory 24 21 19 Rate Blood Pressure 96/55 98/59 103/56 O2 Sat by Pulse 100 100 100 Oximetry 05/30/21 05/30/21 05/30/21 08:43 09:00 09:30 Temperature Pulse Rate 111 H 99 H 76 Pulse Rate [ From Monitor] Respiratory 22 19 Rate Blood Pressure 103/56 106/59 84/45 O2 Sat by Pulse 100 98 Oximetry 05/30/21 05/30/21 05/30/21 10:00 10:30 11:00 Temperature Pulse Rate 75 77 81 Pulse Rate [ From Monitor] Respiratory 0 L 19 19 Rate Blood Pressure 86/48 87/49 90/59 O2 Sat by Pulse 100 99 99 Oximetry 05/30/21 05/30/21 05/30/21 11:15 11:30 11:49 Temperature Pulse Rate 80 79 Pulse Rate [ 80 From Monitor] Respiratory 15 19 Rate Blood Pressure 95/58 O2 Sat by Pulse 99 99 Oximetry 05/30/21 05/30/21 05/30/21 12:00 12:30 13:00 Temperature 99.2 F Pulse Rate 123 H 111 H 108 H Pulse Rate [ From Monitor] Respiratory 19 24 20 Rate Blood Pressure 92/65 113/69 101/52 O2 Sat by Pulse 100 100 99 Oximetry 05/30/21 05/30/21 05/30/21 13:30 14:00 14:30 Temperature Pulse Rate 80 83 82 Pulse Rate [ From Monitor] Respiratory 19 18 20 Rate Blood Pressure 77/40 93/53 88/47 O2 Sat by Pulse 97 99 100 Oximetry 05/30/21 05/30/21 05/30/21 15:00 15:30 16:00 Temperature Pulse Rate 81 81 124 H Pulse Rate [ From Monitor] Respiratory 17 19 35 H Rate Blood Pressure 96/46 92/51 85/44 O2 Sat by Pulse 100 99 99 Oximetry - General Appearance General appearance: well-developed, well-nourished, intubated EENT: other (ETT in place) Respiratory: Present: Other (coarse BS) Cardiology: regular, S1S2 Gastrointestinal: no distended Integumentary: warm and dry - Lab 05/30/21 04:29 05/30/21 04:29 Most recent lab results ABG pH 7.380 pH Units (7.350-7.450) 05/29/21 03:00 ABG pCO2 36.2 mm Hg 05/29/21 03:00 ABG pO2 138.1 mm Hg (80.0-90.0) H 05/29/21 03:00 ABG HCO3 21.0 mmol/L (20.0-26.0) 05/29/21 03:00 ABG O2 Saturation 98.7 % (95.0-99.0) 05/29/21 03:00 Calcium 8.4 mg/dL (8.4-10.2) 05/30/21 04:29 Phosphorus 3.40 mg/dL (2.5-4.5) D 05/30/21 04:29 Magnesium 1.70 mg/dL (1.7-2.3) 05/30/21 04:29 Medications & Allergies - Medications Allergies/Adverse Reactions: Allergies No Known Allergies Allergy (Verified 05/26/21 10:09) Home Medications: Home Medications Medication Instructions Recorded Confirmed Last Taken Type Unobtainable 09/13/13 09/13/13 Unknown History Active Medications: Generic Name Dose Route Start Last Admin Trade Name Freq PRN Reason Stop Dose Admin Acetaminophen 650 mg 05/23/21 11:43 05/29/21 19:02 Acetaminophen 650 Mg Rect Supp RI 650 mg Q6H PRN Administration Pain MILD(1-3)/Fever >100.5/EPSTEIN Lipase/Protease/Amylase 1 each 05/29/21 08:45 Lipase 10,500/Protease 25,000/Amylase 43,750 (Units) Dr Mitchell FEEDTUBE PRN PRN For Clogged Feeding Tube Enoxaparin Sodium 40 mg 05/28/21 15:00 05/30/21 09:51 Enoxaparin 40 Mg/0.4 Ml Inj SUB-Q 40 mg QDAY@1000 MARK Administration Famotidine 20 mg 05/25/21 11:00 05/30/21 09:51 Famotidine 20 Mg/2 Ml Inj IV 20 mg BID MARK Administration Haloperidol Lactate 5 mg 05/30/21 12:18 05/30/21 12:54 Haloperidol Lactate 5 Mg/1 Ml Inj IV 5 mg Q6H PRN Administration Agitation Hydromorphone HCl 0.5 mg 05/23/21 11:43 05/29/21 09:18 Hydromorphone 1 Mg/1 Ml Inj IV 0.5 mg Q24H PRN Administration Pain , Severe (7-10) Dexmedetomidine HCl 400 mcg/ 104 mls @ 5.307 mls/hr 05/24/21 05:00 05/30/21 14:24 Sodium Chloride IV 1.4 mcg/kg/hr TITRATE MARK 37.149 mls/hr Administration Protocol 0.2 MCG/KG/HR NORepinephrine/NS 8 MG-250 ML 8 mg in 250 mls @ 3.75 mls/hr 05/24/21 11:00 05/30/21 14:25 Norepinephrine/Ns 8 Mg-250 Ml (Double Conc) IV 6 mcg/min TITRATE MARK 11.25 mls/hr Titration Protocol 2 MCG/MIN Fentanyl Citrate 2,000 mcg in 100 mls @ 5.103 mls/hr 05/27/21 07:00 05/30/21 14:24 Fentanyl Drip Premix IV 4 mcg/kg/hr TITR MARK 20.412 mls/hr Administration Protocol 1 MCG/KG/HR Dextrose 1,000 mls @ 75 mls/hr 05/28/21 11:00 05/29/21 22:57 D5w IV 75 mls/hr DIRECT MARK Administration Lorazepam 1 mg 05/29/21 15:40 05/30/21 16:08 Lorazepam 2 Mg/Ml Vial IV 1 mg Q4H PRN Administration Agitation Metoprolol Tartrate 12.5 mg 05/28/21 14:00 05/30/21 09:52 Metoprolol Tartrate 25 Mg Tab PO Not Given BID MARK Morphine Sulfate 2 mg 05/23/21 11:43 Morphine 2 Mg/1 Ml Inj IV Q24H PRN Pain, Moderate (4-6) Ondansetron HCl 4 mg 05/23/21 11:43 Ondansetron 4 Mg/2 Ml Inj IV Q8H PRN Nausea And Vomiting Senna 17.2 mg 05/28/21 22:00 05/29/21 21:04 Sennosides 8.6 Mg Tab PO 17.2 mg QHS MARK Administration Simple Syrup 15 ml 05/29/21 08:45 Simple Syrup 15 Ml FEEDTUBE PRN PRN Hypoglycemia Simple Syrup 30 ml 05/29/21 08:45 Simple Syrup 15 Ml FEEDTUBE PRN PRN Hypoglycemia Sodium Bicarbonate 325 mg 05/29/21 08:45 Sodium Bicarbonate 325 Mg Tab FEEDTUBE PRN PRN For Clogged Feeding Tube Sodium Chloride 10 ml 05/23/21 22:00 05/30/21 09:52 Sodium Chloride 0.9% 10 Ml Flush Syringe IV 10 ml BID MARK Administration Sodium Chloride 10 ml 05/23/21 11:43 Sodium Chloride 0.9% 10 Ml Flush Syringe IV PRN PRN LINE FLUSH Vitamin B Complex/Folic Acid 1 each 05/30/21 10:00 05/30/21 09:52 Folbee Plus Cz (Folic Acid/Vit Bcomp&C/Cu/Znox) PO 1 each QDAY MARK Administration
--- NOTE | 2021-05-30 18:20 | Progress Note ---
Assessment and Plan Drug Overdose // Methamphetamine Dependence // H/o Polysubstance Abuse Acute Respiratory Failure Sepsis s/p Shock Bilateral PNA Acute on Chronic HFrEF // NICMP (EF 20-25%) Moderate MR BRYNN (resolved) Hypokalemia Hypomagnesemia H/o HTN Normal Coronaries (via cath 07/2020) Plan: Suspect tachycardia is physiologic in the setting of withdrawal/agitation and sepsis. Wean pressors as tolerated. Resume BB when BP permits. Closely monitor volume status while receiving IV fluids. Lasix and Lisinopril previously on hold as per Nephro recs. Would benefit from resumption of gentle diuretics. Electrolyte correction per Primary. Pt seen in conjunction with Dr. Meyers, who agrees with the assessment and plan of care. - Patient Problems (1) Overdose Current Visit: Yes Status: Acute Qualifiers: Encounter type: initial encounter Injury intent: undetermined intent Qualified Code(s): T50.904A - Poisoning by unspecified drugs, medicaments and biological substances, undetermined, initial encounter Subjective Date of service: 05/30/21 Principal diagnosis: Overdose Interval history: Was very agitated/aggressive this AM per staff. Heavily sedated. Back on Levo gtt. In SR 80-90s on tele most of the morning, with intermittent ST up to the 130s range. Objective Last Vital Signs Temp 99.2 F 05/30/21 12:00 Pulse 93 H 05/30/21 18:00 Resp 17 05/30/21 18:00 BP 96/54 05/30/21 18:00 Pulse Ox 98 05/30/21 18:00 - Physical Examination General: Other (intubated/sedated) HEENT: Positive: Normocephaly Neck: Positive: neck supple, trachea midline. Negative: JVD/HJR Cardiac: Positive: Reg Rate and Rhythm, S1/S2 Lungs: Positive: Ventilated Respirations Neuro: Positive: Other (agitated) Abdomen: Positive: Soft Skin: Negative: Rash Extremities: Present: edema, warm - Labs and Meds CBC 05/30/21 Range/Units 04:29 WBC 10.6 (4.5-11.0) K/mm3 RBC 3.76 (3.65-5.03) M/mm3 Hgb 10.8 L (11.8-15.2) gm/dl Hct 33.4 L (35.5-45.6) % Plt Count 201 (140-440) K/mm3 Comprehensive Metabolic Panel 05/30/21 Range/Units 04:29 Sodium 141 D (137-145) mmol/L Potassium 3.2 L (3.6-5.0) mmol/L Chloride 112.4 H (98-107) mmol/L Carbon Dioxide 21 L (22-30) mmol/L BUN 12 (9-20) mg/dL Creatinine 0.7 L (0.8-1.3) mg/dL Glucose 128 H (75-100) mg/dL Calcium 8.4 (8.4-10.2) mg/dL - Imaging and Cardiology EKG: report reviewed, image reviewed Echo: report reviewed Cardiac cath: report reviewed - Telemetry EKG Rhythm: Sinus Rhythm - EKG Sinus rhythms and dysrhythmias: sinus tachycardia Ventricular dysrhythmias: ventricular premature com Repolarization changes or abnormalities: nonspecific abnormality, ST segment, and/or T wave - Allied health notes Allied health notes reviewed: nursing
[2021-05-30] MEDS: SENNOSIDES 8.6 MG TAB PO SCH (21:28)
[2021-05-31] MEDS: fentaNYL DRIP Premix 2,000 MCG/100 ML BAG IV SCH ×3 (01:09→10:26)
[2021-05-31] MEDS: LORazepam 2 MG/ML VIAL IV PRN ×4 (01:52→23:15)
[2021-05-31] MEDS: HALOPERIDOL LACTATE 5 MG/1 ML INJ IV PRN ×3 (02:08→14:29)
[2021-05-31] MEDS: NORepinephrine/NS 8 MG-250 ML 8 MG/250 ML INFUS..BTL IV SCH (03:20)
[2021-05-31] MEDS: ACETAMINOPHEN 650 MG RECT SUPP PR PRN (03:22)
[2021-05-31 05:34] LABS: Hematocrit 34.3 % (35.5-45.6); Hemoglobin 10.9 gm/dl (11.8-15.2); Mean Corpuscular HGB Conc 32 % (32-34); Mean Corpuscular Volume 90 fl (84-94); Platelet Count 259 K/mm3 (140-440); Red Blood Count 3.83 M/mm3 (3.65-5.03); Red Cell Distribution Width 15.4 % (13.2-15.2)
[2021-05-31 05:55] LABS: BUN/Creatinine Ratio 18; Blood Urea Nitrogen 14 mg/dL (9-20); Calcium 8.4 mg/dL (8.4-10.2); Hemolysis Index 3
--- NOTE | 2021-05-31 09:04 | Progress Note ---
Assessment and Plan Impression: * Nonoliguric cute kidney injury secondary to ATN * Acute hypoxic respiratory failure --COVID 19 negative * Acute encephalopathy * Hypernatremia * Hypotension * Drug overdose * Hyperkalemia * Hypernatremia Plan: * Renal function has improved - BRYNN resolved * Hypernatremia worsened - Na 145 - continue D5W at current rate for now * Continue close monitoring of renal function * Medical management of electrolytes * Vent management per pulm * Pressors prn - maintain MAP>65; * Dose medications for renal function * Strict I/O - maintain christianson catheter in critically ill patient * Avoid potential nephrotoxins Subjective Date of service: 05/31/21 Principal diagnosis: Overdose Interval history: Chart, vitals, labs reviewed. Patient remains intubated, FiO2 40%, on D5W at 5cc/hr, Levophed Objective - Exam Narrative Exam: General appearance: well-developed, well-nourished, intubated EENT: other (ETT in place) Respiratory: Present: Other (coarse BS) Cardiology: regular, S1S2 Gastrointestinal: no distended Integumentary: warm and dry - Vital Signs Vital signs: Vital Signs - 12hr 05/30/21 05/30/21 05/30/21 21:10 21:30 22:00 Temperature Pulse Rate 97 H 123 H 104 H Pulse Rate [ From Monitor] Respiratory 16 19 21 Rate Blood Pressure 118/78 114/86 109/66 O2 Sat by Pulse 100 100 99 Oximetry 05/30/21 05/30/21 05/30/21 22:30 23:00 23:30 Temperature Pulse Rate 82 81 83 Pulse Rate [ From Monitor] Respiratory 20 17 16 Rate Blood Pressure 112/67 85/42 93/49 O2 Sat by Pulse 100 100 99 Oximetry 05/31/21 05/31/21 05/31/21 00:00 00:30 01:00 Temperature 97.6 F Pulse Rate 83 83 83 Pulse Rate [ 83 From Monitor] Respiratory 17 18 18 Rate Blood Pressure 98/47 104/54 90/57 O2 Sat by Pulse 99 100 100 Oximetry 05/31/21 05/31/21 05/31/21 01:30 02:00 02:30 Temperature Pulse Rate 83 88 126 H Pulse Rate [ From Monitor] Respiratory 20 20 29 H Rate Blood Pressure 98/60 80/46 112/77 O2 Sat by Pulse 100 97 100 Oximetry 05/31/21 05/31/21 05/31/21 03:00 03:30 03:48 Temperature Pulse Rate 118 H 109 H 107 H Pulse Rate [ From Monitor] Respiratory 24 20 Rate Blood Pressure 114/57 98/54 91/49 O2 Sat by Pulse 100 100 100 Oximetry 05/31/21 05/31/21 05/31/21 04:00 04:30 05:00 Temperature 99.2 F Pulse Rate 102 H 114 H 111 H Pulse Rate [ 88 From Monitor] Respiratory 25 H 20 17 Rate Blood Pressure 99/59 98/68 113/66 O2 Sat by Pulse 100 100 100 Oximetry 05/31/21 05/31/21 05/31/21 05:30 06:00 06:30 Temperature Pulse Rate 106 H 88 113 H Pulse Rate [ From Monitor] Respiratory 20 14 18 Rate Blood Pressure 108/67 80/46 97/67 O2 Sat by Pulse 99 99 100 Oximetry 05/31/21 05/31/21 05/31/21 07:00 07:30 07:42 Temperature Pulse Rate 80 77 78 Pulse Rate [ From Monitor] Respiratory 13 13 Rate Blood Pressure 94/48 83/44 83/44 O2 Sat by Pulse 100 100 100 Oximetry 05/31/21 05/31/21 08:00 08:01 Temperature Pulse Rate 85 100 H Pulse Rate [ 85 From Monitor] Respiratory 14 12 Rate Blood Pressure 99/72 O2 Sat by Pulse 100 99 Oximetry - Lab 05/31/21 04:00 05/31/21 04:00 Most recent lab results ABG pH 7.380 pH Units (7.350-7.450) 05/29/21 03:00 ABG pCO2 36.2 mm Hg 05/29/21 03:00 ABG pO2 138.1 mm Hg (80.0-90.0) H 05/29/21 03:00 ABG HCO3 21.0 mmol/L (20.0-26.0) 05/29/21 03:00 ABG O2 Saturation 98.7 % (95.0-99.0) 05/29/21 03:00 Calcium 8.4 mg/dL (8.4-10.2) 05/31/21 04:00 Phosphorus 2.60 mg/dL (2.5-4.5) D 05/31/21 04:00 Magnesium 1.70 mg/dL (1.7-2.3) 05/31/21 04:00 Medications & Allergies - Medications Allergies/Adverse Reactions: Allergies No Known Allergies Allergy (Verified 05/26/21 10:09) Home Medications: Home Medications Medication Instructions Recorded Confirmed Last Taken Type Unobtainable 09/13/13 09/13/13 Unknown History Active Medications: Generic Name Dose Route Start Last Admin Trade Name Freq PRN Reason Stop Dose Admin Acetaminophen 650 mg 05/23/21 11:43 05/31/21 03:22 Acetaminophen 650 Mg Rect Supp MT 650 mg Q6H PRN Administration Pain MILD(1-3)/Fever >100.5/EPSTEIN Lipase/Protease/Amylase 1 each 05/29/21 08:45 Lipase 10,500/Protease 25,000/Amylase 43,750 (Units) Dr Mitchell FEEDTUBE PRN PRN For Clogged Feeding Tube Enoxaparin Sodium 40 mg 05/28/21 15:00 05/30/21 09:51 Enoxaparin 40 Mg/0.4 Ml Inj SUB-Q 40 mg QDAY@1000 MARK Administration Famotidine 20 mg 05/25/21 11:00 05/30/21 21:27 Famotidine 20 Mg/2 Ml Inj IV 20 mg BID MARK Administration Haloperidol Lactate 5 mg 05/30/21 12:18 05/31/21 08:17 Haloperidol Lactate 5 Mg/1 Ml Inj IV 5 mg Q6H PRN Administration Agitation Hydromorphone HCl 0.5 mg 05/23/21 11:43 05/29/21 09:18 Hydromorphone 1 Mg/1 Ml Inj IV 0.5 mg Q24H PRN Administration Pain , Severe (7-10) Dexmedetomidine HCl 400 mcg/ 104 mls @ 5.307 mls/hr 05/24/21 05:00 05/31/21 05:43 Sodium Chloride IV 1.4 mcg/kg/hr TITRATE MARK 37.149 mls/hr Administration Protocol 0.2 MCG/KG/HR NORepinephrine/NS 8 MG-250 ML 8 mg in 250 mls @ 3.75 mls/hr 05/24/21 11:00 05/31/21 07:56 Norepinephrine/Ns 8 Mg-250 Ml (Double Conc) IV 4 mcg/min TITRATE MARK 7.5 mls/hr Titration Protocol 2 MCG/MIN Fentanyl Citrate 2,000 mcg in 100 mls @ 5.103 mls/hr 05/27/21 07:00 05/31/21 05:22 Fentanyl Drip Premix IV 3 mcg/kg/hr TITR MARK 15.309 mls/hr Administration Protocol 1 MCG/KG/HR Dextrose 1,000 mls @ 75 mls/hr 05/28/21 11:00 05/29/21 22:57 D5w IV 75 mls/hr DIRECT MARK Administration Lorazepam 1 mg 05/29/21 15:40 05/31/21 06:28 Lorazepam 2 Mg/Ml Vial IV 1 mg Q4H PRN Administration Agitation Metoprolol Tartrate 12.5 mg 05/28/21 14:00 05/30/21 21:27 Metoprolol Tartrate 25 Mg Tab PO 12.5 mg BID MARK Administration Morphine Sulfate 2 mg 05/23/21 11:43 Morphine 2 Mg/1 Ml Inj IV Q24H PRN Pain, Moderate (4-6) Ondansetron HCl 4 mg 05/23/21 11:43 Ondansetron 4 Mg/2 Ml Inj IV Q8H PRN Nausea And Vomiting Senna 17.2 mg 05/28/21 22:00 05/30/21 21:28 Sennosides 8.6 Mg Tab PO 17.2 mg QHS MARK Administration Simple Syrup 15 ml 05/29/21 08:45 Simple Syrup 15 Ml FEEDTUBE PRN PRN Hypoglycemia Simple Syrup 30 ml 05/29/21 08:45 Simple Syrup 15 Ml FEEDTUBE PRN PRN Hypoglycemia Sodium Bicarbonate 325 mg 05/29/21 08:45 Sodium Bicarbonate 325 Mg Tab FEEDTUBE PRN PRN For Clogged Feeding Tube Sodium Chloride 10 ml 05/23/21 22:00 05/30/21 21:28 Sodium Chloride 0.9% 10 Ml Flush Syringe IV 10 ml BID MARK Administration Sodium Chloride 10 ml 05/23/21 11:43 Sodium Chloride 0.9% 10 Ml Flush Syringe IV PRN PRN LINE FLUSH Vitamin B Complex/Folic Acid 1 each 05/30/21 10:00 05/30/21 09:52 Folbee Plus Cz (Folic Acid/Vit Bcomp&C/Cu/Znox) PO 1 each QDAY MARK Administration
[2021-05-31] MEDS: ENOXAPARIN 40 MG/0.4 ML INJ SUB-Q SCH (09:06)
[2021-05-31] MEDS: FAMOTIDINE 20 MG/2 ML INJ IV SCH ×2 (09:06→21:23)
[2021-05-31] MEDS: FOLBEE PLUS CZ (FOLIC ACID/VIT BCOMP&C/CU/ZNOX) PO SCH (09:06)
[2021-05-31] MEDS: METOPROLOL TARTRATE 25 MG TAB PO SCH ×3 (09:07→21:23)
[2021-05-31] MEDS ORDERED: DEXTROSE 10% *Hypoglycemia IV PRN (10:47)
[2021-05-31] MEDS ORDERED: EPINEPHrine RACEMIC 2.25% 0.5ML NEBU IH ONE ×2 (11:01→12:15)
--- NOTE | 2021-05-31 11:34 | Progress Note ---
Assessment and Plan 40 y/o male with suspected overdose and metabolic acidosis 05/31/21: Extubated and had some upper airway noise. RT gave racemic epi. Incr eased work of breathing but no desats so will try bipap therapy. If fails will be reintubated and trached. Keep NPO for now. Will need to change BB to IV while on bipap therapy. 05/28/21: Extubate again today once patient is more awake. Continue precedex to help with agitation. Will need swallow eval once extubated. Cards is seeing, await any new recs. spoke with them this morning and his cardiomyopathy and systolic heart failure are chronic with normal coronaries on a cath last year sometime in the [place] [facility]. 05/27/21: Get patient to ICU as soon as possible to achieve adequate sedation and mental state control to insure successful extubation. AGree with Precedex 05/26/21: Attempt extubation today once all sedation is off. 05/25/21: follow up echo. Spoke with RT about ABG. States will be in system within the hour. Still pressors but on Precedex, Versed and Fent. needs to be COVID tested. BNP was >6k. Unable to diurese right now given pressor requirements but need to follow up echo. need to get patient upstairs as soon as possible. Spoke with charge nurse and they are working on this. 1. CXR shows cardiomegaly with some bibasilar changes. Could be fluid. Suggest swabbing for COVID. Check BNP and obtain 2D echo given heart size. 2. Minimal sedation to assess mental status 3. Wean pressors for MAPS >60 4. Follow up renal recs 5. No ABG prior to intubation. Echo should be a bubble study given degree of hypoxemia seen on ABG CCT 31 minutes. Subjective Date of service: 05/31/21 Principal diagnosis: Overdose Interval history: Not extubated over the weekend. Minimal settings remain but got more agitated over the weekend. Now has PRN ativan and haldol. Objective Vital Signs - 12hr 05/31/21 05/31/21 05/31/21 00:00 00:30 01:00 Temperature 97.6 F Pulse Rate 83 83 83 Pulse Rate [ 83 From Monitor] Respiratory 17 18 18 Rate Blood Pressure 98/47 104/54 90/57 O2 Sat by Pulse 99 100 100 Oximetry 05/31/21 05/31/21 05/31/21 01:30 02:00 02:30 Temperature Pulse Rate 83 88 126 H Pulse Rate [ From Monitor] Respiratory 20 20 29 H Rate Blood Pressure 98/60 80/46 112/77 O2 Sat by Pulse 100 97 100 Oximetry 05/31/21 05/31/21 05/31/21 03:00 03:30 03:48 Temperature Pulse Rate 118 H 109 H 107 H Pulse Rate [ From Monitor] Respiratory 24 20 Rate Blood Pressure 114/57 98/54 91/49 O2 Sat by Pulse 100 100 100 Oximetry 05/31/21 05/31/21 05/31/21 04:00 04:30 05:00 Temperature 99.2 F Pulse Rate 102 H 114 H 111 H Pulse Rate [ 88 From Monitor] Respiratory 25 H 20 17 Rate Blood Pressure 99/59 98/68 113/66 O2 Sat by Pulse 100 100 100 Oximetry 05/31/21 05/31/21 05/31/21 05:30 06:00 06:30 Temperature Pulse Rate 106 H 88 113 H Pulse Rate [ From Monitor] Respiratory 20 14 18 Rate Blood Pressure 108/67 80/46 97/67 O2 Sat by Pulse 99 99 100 Oximetry 05/31/21 05/31/21 05/31/21 07:00 07:30 07:42 Temperature Pulse Rate 80 77 78 Pulse Rate [ From Monitor] Respiratory 13 13 Rate Blood Pressure 94/48 83/44 83/44 O2 Sat by Pulse 100 100 100 Oximetry 05/31/21 05/31/21 05/31/21 08:00 08:01 08:30 Temperature 99.5 F Pulse Rate 85 100 H 90 Pulse Rate [ 85 From Monitor] Respiratory 14 12 13 Rate Blood Pressure 99/72 94/66 O2 Sat by Pulse 100 99 99 Oximetry 05/31/21 05/31/21 05/31/21 09:00 09:30 10:01 Temperature Pulse Rate 111 H 120 H 117 H Pulse Rate [ From Monitor] Respiratory 20 31 H 20 Rate Blood Pressure 94/67 91/67 124/83 O2 Sat by Pulse 99 100 100 Oximetry 05/31/21 11:11 Temperature Pulse Rate 121 H Pulse Rate [ From Monitor] Respiratory Rate Blood Pressure 123/83 O2 Sat by Pulse Oximetry Constitutional: other (Arousable to verbal stimulation) ENT: oropharynx moist, other (Orally intubated) Ascultation: Bilateral: rhonchi Cardiovascular: regular rate and rhythm (With episodes of tachycardia) Gastrointestinal: normoactive bowel sounds, soft, non-tender CBC and BMP: 05/31/21 04:00 05/31/21 04:00 ABG, PT/INR, D-dimer: ABG ABG pH 7.380 pH Units (7.350-7.450) 05/29/21 03:00 POC ABG pCO2 41.6 mmHg (32.0-48.0) 05/24/21 03:44 ABG pCO2 36.2 mm Hg 05/29/21 03:00 POC ABG pO2 87.6 mmHg (83-108) 05/24/21 03:44 ABG pO2 138.1 mm Hg (80.0-90.0) H 05/29/21 03:00 POC ABG HCO3 17.5 05/24/21 03:44 ABG O2 Saturation 98.7 % (95.0-99.0) 05/29/21 03:00 Abnormal lab findings: Abnormal Labs 05/23/21 05/23/21 05/23/21 05:55 09:38 09:38 WBC RBC 5.09 H Hgb Hct 46.2 H MCHC RDW Lymph % (Auto) [place] % (Auto) [place] # (Auto) Seg Neutrophils % Seg Neuts % (Manual) Lymphocytes % (Manual) Seg Neutrophils # Seg Neutrophils # Man Lymphocytes # (Manual) ABG pH 7.265 L ABG pO2 ABG O2 Saturation 94.6 L ABG Base Excess -4.5 L ABG Hemoglobin ABG Potassium ABG Glucose Oxyhemoglobin 92.3 L Sodium Potassium Chloride Carbon Dioxide 20 L BUN Creatinine Glucose 147 H POC Glucose Lactic Acid Calcium Phosphorus Magnesium Total Bilirubin Direct Bilirubin AST Total Creatine Kinase C-Reactive Protein NT-Pro-B Natriuret Pep Total Protein Albumin 3.6 L Arterial Blood Glucose Urine WBC (Auto) Salicylates Acetaminophen 05/23/21 05/23/21 05/23/21 09:38 09:38 09:38 WBC RBC Hgb Hct MCHC RDW Lymph % (Auto) [place] % (Auto) [place] # (Auto) Seg Neutrophils % Seg Neuts % (Manual) Lymphocytes % (Manual) Seg Neutrophils # Seg Neutrophils # Man Lymphocytes # (Manual) ABG pH ABG pO2 ABG O2 Saturation ABG Base Excess ABG Hemoglobin ABG Potassium ABG Glucose Oxyhemoglobin Sodium Potassium Chloride Carbon Dioxide BUN Creatinine Glucose POC Glucose Lactic Acid Calcium Phosphorus Magnesium Total Bilirubin Direct Bilirubin AST Total Creatine Kinase C-Reactive Protein NT-Pro-B Natriuret Pep 6058 H Total Protein Albumin Arterial Blood Glucose Urine WBC (Auto) Salicylates < 0.3 L Acetaminophen 5.0 L 05/23/21 05/23/21 05/24/21 12:49 Unknown 03:44 WBC RBC Hgb Hct MCHC RDW Lymph % (Auto) [place] % (Auto) [place] # (Auto) Seg Neutrophils % Seg Neuts % (Manual) Lymphocytes % (Manual) Seg Neutrophils # Seg Neutrophils # Man Lymphocytes # (Manual) ABG pH 7.208 L 7.241 L ABG pO2 52.2 L ABG O2 Saturation 93.5 L 83.7 L ABG Base Excess -6.7 L -3.7 L ABG Hemoglobin ABG Potassium 5.6 H ABG Glucose 53 L Oxyhemoglobin 91.1 L 81.1 L Sodium Potassium Chloride Carbon Dioxide BUN Creatinine Glucose POC Glucose Lactic Acid Calcium Phosphorus Magnesium Total Bilirubin Direct Bilirubin AST Total Creatine Kinase C-Reactive Protein NT-Pro-B Natriuret Pep Total Protein Albumin Arterial Blood Glucose 53 L Urine WBC (Auto) Salicylates Acetaminophen 05/24/21 05/24/21 05/24/21 05:14 05:14 09:35 WBC 23.3 H RBC 5.23 H Hgb Hct 47.3 H MCHC RDW 15.3 H Lymph % (Auto) [place] % (Auto) [place] # (Auto) Seg Neutrophils % Seg Neuts % (Manual) 12.0 L Lymphocytes % (Manual) 3.0 L Seg Neutrophils # Seg Neutrophils # Man Lymphocytes # (Manual) 0.7 L ABG pH ABG pO2 ABG O2 Saturation ABG Base Excess ABG Hemoglobin ABG Potassium ABG Glucose Oxyhemoglobin Sodium Potassium 6.3 H* D Chloride 107.3 H Carbon Dioxide 20 L BUN 33 H Creatinine 3.5 H D Glucose 56 L POC Glucose Lactic Acid Calcium Phosphorus Magnesium Total Bilirubin 1.90 H Direct Bilirubin AST Total Creatine Kinase 556 H C-Reactive Protein NT-Pro-B Natriuret Pep Total Protein 4.9 L D Albumin 2.8 L Arterial Blood Glucose Urine WBC (Auto) Salicylates Acetaminophen 05/24/21 05/24/21 05/25/21 19:45 Unknown 04:23 WBC 20.1 H RBC Hgb Hct MCHC 31 L RDW 15.5 H Lymph % (Auto) [place] % (Auto) [place] # (Auto) Seg Neutrophils % Seg Neuts % (Manual) 94.0 H Lymphocytes % (Manual) 5.0 L Seg Neutrophils # Seg Neutrophils # Man 18.9 H Lymphocytes # (Manual) 1.0 L ABG pH ABG pO2 ABG O2 Saturation ABG Base Excess ABG Hemoglobin ABG Potassium ABG Glucose Oxyhemoglobin Sodium Potassium 5.7 H Chloride 108.9 H Carbon Dioxide 21 L BUN 36 H Creatinine 2.6 H Glucose 108 H POC Glucose Lactic Acid Calcium Phosphorus Magnesium Total Bilirubin Direct Bilirubin AST Total Creatine Kinase C-Reactive Protein NT-Pro-B Natriuret Pep Total Protein Albumin Arterial Blood Glucose Urine WBC (Auto) 78.0 H Salicylates Acetaminophen 05/25/21 05/25/21 05/25/21 04:23 09:14 11:46 WBC RBC Hgb Hct MCHC RDW Lymph % (Auto) [place] % (Auto) [place] # (Auto) Seg Neutrophils % Seg Neuts % (Manual) Lymphocytes % (Manual) Seg Neutrophils # Seg Neutrophils # Man Lymphocytes # (Manual) ABG pH ABG pO2 ABG O2 Saturation ABG Base Excess ABG Hemoglobin ABG Potassium ABG Glucose Oxyhemoglobin Sodium Potassium Chloride 111.4 H Carbon Dioxide 18 L BUN 33 H Creatinine 1.9 H Glucose 121 H POC Glucose Lactic Acid 2.40 H* 2.60 H* Calcium Phosphorus Magnesium Total Bilirubin Direct Bilirubin AST Total Creatine Kinase C-Reactive Protein NT-Pro-B Natriuret Pep Total Protein Albumin Arterial Blood Glucose Urine WBC (Auto) Salicylates Acetaminophen 05/25/21 05/26/21 05/26/21 18:00 03:16 05:55 WBC 22.0 H RBC Hgb Hct MCHC RDW 15.3 H Lymph % (Auto) [place] % (Auto) [place] # (Auto) Seg Neutrophils % Seg Neuts % (Manual) 96.0 H Lymphocytes % (Manual) 2.0 L Seg Neutrophils # Seg Neutrophils # Man 21.1 H Lymphocytes # (Manual) 0.4 L ABG pH ABG pO2 208.2 H ABG O2 Saturation 99.3 H ABG Base Excess -2.7 L -2.6 L ABG Hemoglobin 13.7 L 13.0 L ABG Potassium ABG Glucose Oxyhemoglobin 94.8 L Sodium Potassium Chloride Carbon Dioxide BUN Creatinine Glucose POC Glucose Lactic Acid Calcium Phosphorus Magnesium Total Bilirubin Direct Bilirubin AST Total Creatine Kinase C-Reactive Protein NT-Pro-B Natriuret Pep Total Protein Albumin Arterial Blood Glucose Urine WBC (Auto) Salicylates Acetaminophen 05/26/21 05/27/21 05/27/21 05:55 03:18 03:18 WBC 21.5 H RBC Hgb Hct MCHC RDW 15.5 H Lymph % (Auto) [place] % (Auto) [place] # (Auto) Seg Neutrophils % Seg Neuts % (Manual) 92.0 H Lymphocytes % (Manual) 5.0 L Seg Neutrophils # Seg Neutrophils # Man 19.8 H Lymphocytes # (Manual) 1.1 L ABG pH ABG pO2 ABG O2 Saturation ABG Base Excess ABG Hemoglobin ABG Potassium ABG Glucose Oxyhemoglobin Sodium 148 H Potassium Chloride 111.3 H 113.8 H Carbon Dioxide 21 L 20 L BUN 23 H Creatinine Glucose 102 H 103 H POC Glucose Lactic Acid Calcium 8.3 L Phosphorus Magnesium Total Bilirubin 7.80 H Direct Bilirubin AST 112 H Total Creatine Kinase C-Reactive Protein NT-Pro-B Natriuret Pep Total Protein 5.2 L Albumin 2.9 L Arterial Blood Glucose Urine WBC (Auto) Salicylates Acetaminophen 05/27/21 05/28/21 05/28/21 03:18 05:55 10:05 WBC 11.4 H RBC Hgb Hct MCHC RDW 15.5 H Lymph % (Auto) 11.2 L [place] % (Auto) 8.6 H [place] # (Auto) 1.0 H Seg Neutrophils % 78.9 H Seg Neuts % (Manual) Lymphocytes % (Manual) Seg Neutrophils # 9.0 H Seg Neutrophils # Man Lymphocytes # (Manual) ABG pH ABG pO2 104.7 H ABG O2 Saturation ABG Base Excess -3.1 L ABG Hemoglobin 13.2 L ABG Potassium ABG Glucose Oxyhemoglobin Sodium Potassium Chloride Carbon Dioxide BUN Creatinine Glucose POC Glucose Lactic Acid Calcium Phosphorus Magnesium Total Bilirubin 7.90 H Direct Bilirubin 6.0 H AST 114 H Total Creatine Kinase C-Reactive Protein NT-Pro-B Natriuret Pep Total Protein 5.2 L Albumin 2.8 L Arterial Blood Glucose Urine WBC (Auto) Salicylates Acetaminophen 05/28/21 05/28/21 05/28/21 10:05 10:05 10:05 WBC RBC Hgb Hct MCHC RDW Lymph % (Auto) [place] % (Auto) [place] # (Auto) Seg Neutrophils % Seg Neuts % (Manual) Lymphocytes % (Manual) Seg Neutrophils # Seg Neutrophils # Man Lymphocytes # (Manual) ABG pH ABG pO2 ABG O2 Saturation ABG Base Excess ABG Hemoglobin ABG Potassium ABG Glucose Oxyhemoglobin Sodium 149 H Potassium Chloride 119.9 H Carbon Dioxide 18 L BUN Creatinine Glucose 103 H POC Glucose Lactic Acid 2.10 H* Calcium Phosphorus Magnesium Total Bilirubin Direct Bilirubin AST Total Creatine Kinase C-Reactive Protein 34.80 H NT-Pro-B Natriuret Pep Total Protein Albumin Arterial Blood Glucose Urine WBC (Auto) Salicylates Acetaminophen 05/29/21 05/29/21 05/29/21 03:00 05:02 05:02 WBC 13.0 H RBC Hgb Hct MCHC RDW 15.4 H Lymph % (Auto) [place] % (Auto) [place] # (Auto) Seg Neutrophils % Seg Neuts % (Manual) Lymphocytes % (Manual) Seg Neutrophils # Seg Neutrophils # Man Lymphocytes # (Manual) ABG pH ABG pO2 138.1 H ABG O2 Saturation ABG Base Excess -3.6 L ABG Hemoglobin 12.8 L ABG Potassium ABG Glucose Oxyhemoglobin Sodium 150 H Potassium Chloride 119.8 H Carbon Dioxide 18 L BUN Creatinine Glucose 109 H POC Glucose Lactic Acid Calcium Phosphorus 2.20 L Magnesium 1.50 L Total Bilirubin Direct Bilirubin AST Total Creatine Kinase C-Reactive Protein NT-Pro-B Natriuret Pep Total Protein Albumin Arterial Blood Glucose Urine WBC (Auto) Salicylates Acetaminophen 05/29/21 05/29/21 05/30/21 17:00 23:37 04:29 WBC RBC Hgb 10.8 L Hct 33.4 L MCHC RDW 15.7 H Lymph % (Auto) [place] % (Auto) [place] # (Auto) Seg Neutrophils % Seg Neuts % (Manual) Lymphocytes % (Manual) Seg Neutrophils # Seg Neutrophils # Man Lymphocytes # (Manual) ABG pH ABG pO2 ABG O2 Saturation ABG Base Excess ABG Hemoglobin ABG Potassium ABG Glucose Oxyhemoglobin Sodium Potassium Chloride Carbon Dioxide BUN Creatinine Glucose POC Glucose 114 H 122 H Lactic Acid Calcium Phosphorus Magnesium Total Bilirubin Direct Bilirubin AST Total Creatine Kinase C-Reactive Protein NT-Pro-B Natriuret Pep Total Protein Albumin Arterial Blood Glucose Urine WBC (Auto) Salicylates Acetaminophen 05/30/21 05/30/21 05/31/21 04:29 23:36 04:00 WBC 11.2 H RBC Hgb 10.9 L Hct 34.3 L MCHC RDW 15.4 H Lymph % (Auto) [place] % (Auto) [place] # (Auto) Seg Neutrophils % Seg Neuts % (Manual) Lymphocytes % (Manual) Seg Neutrophils # Seg Neutrophils # Man Lymphocytes # (Manual) ABG pH ABG pO2 ABG O2 Saturation ABG Base Excess ABG Hemoglobin ABG Potassium ABG Glucose Oxyhemoglobin Sodium Potassium 3.2 L Chloride 112.4 H Carbon Dioxide 21 L BUN Creatinine 0.7 L Glucose 128 H POC Glucose 120 H Lactic Acid Calcium Phosphorus Magnesium Total Bilirubin Direct Bilirubin AST Total Creatine Kinase C-Reactive Protein NT-Pro-B Natriuret Pep Total Protein Albumin Arterial Blood Glucose Urine WBC (Auto) Salicylates Acetaminophen 05/31/21 04:00 WBC RBC Hgb Hct MCHC RDW Lymph % (Auto) [place] % (Auto) [place] # (Auto) Seg Neutrophils % Seg Neuts % (Manual) Lymphocytes % (Manual) Seg Neutrophils # Seg Neutrophils # Man Lymphocytes # (Manual) ABG pH ABG pO2 ABG O2 Saturation ABG Base Excess ABG Hemoglobin ABG Potassium ABG Glucose Oxyhemoglobin Sodium 148 H Potassium Chloride 114.8 H Carbon Dioxide BUN Creatinine Glucose 151 H POC Glucose Lactic Acid Calcium Phosphorus Magnesium Total Bilirubin Direct Bilirubin AST Total Creatine Kinase C-Reactive Protein NT-Pro-B Natriuret Pep Total Protein Albumin Arterial Blood Glucose Urine WBC (Auto) Salicylates Acetaminophen Allied health notes reviewed: nursing
[2021-05-31] MEDS ORDERED: FUROSEMIDE 40 MG/4 ML INJ IV SCH (12:15)
--- NOTE | 2021-05-31 13:38 | Progress Note ---
Assessment and Plan Patient is a 40-year-old male with a past medical history of HFrEF (EF 15%) and methamphetamine dependence who was brought to the ED after being found unresponsive on 05/13/2021. Acute hypoxic respiratory failure-pulmonology following Drug overdose Acute on chronic HFrEF Sepsis Bilateral pneumonia BRYNN-ID following Rhabdomyolysis Echo 05/25/2021-EF 20 to 25%. Severe global hypokinesis of left ventricle. Left ventricle is moderately dilated. Doppler flow suggests impaired LV relaxation. Moderate mitral regurgitation. No pericardial effusion Cardiac cath 08/04/2020-Angiographically normal coronary arteries. This is indicative of a nonischemic cardiomyopathy. Mildly elevated biventricular filling pressures with normal cardiac index TTE, complete 08/02/20:LVEF is 18%,Severe global LV hypokinesis. Normal LV diastolic function. LA mildly dilated. Moderate mitral regurgitation with an eccentric MR jet(s),No previous echocardiogram for comparison. Outpatient medications: Coreg 6.52 mg p.o. twice daily, Lasix 40 mg p.o. daily, lisinopril 5 mg p.o. daily Plan: Patient does have some edema recommend Lasix IV 40 mg once. Will hold RAMYA and ARB as per nephro recs Suspect tachycardia likely secondary to sepsis and pressors Continue low-dose beta-woo with metoprolol 12.5 mg p.o. twice daily Patient seen in conjunction with Dr. Salazar who agrees with this plan of care - Patient Problems (1) Acute on chronic HFrEF (heart failure with reduced ejection fraction) Current Visit: Yes Status: Acute (2) PNA (pneumonia) Current Visit: Yes Status: Acute (3) Acute encephalopathy Current Visit: Yes Status: Acute (4) Acute respiratory failure Current Visit: Yes Status: Acute Qualifiers: Respiratory failure complication: hypoxia Qualified Code(s): J96.01 - Acute respiratory failure with hypoxia (5) Overdose by ingestion Current Visit: Yes Status: Acute Subjective Date of service: 05/31/21 Principal diagnosis: Overdose Interval history: Patient remains intubated and sedated. Patient to be extubated and attempt BiPAP therapy today Sinus tach 110s Objective Vital Signs Temp Pulse Pulse Pulse Resp Resp BP 05/31/21 12:00 86 93 H 21 98/59 05/31/21 11:52 125 H 24 05/31/21 11:30 97 H 20 105/75 05/31/21 11:19 110 H 20 111/80 05/31/21 11:11 121 H 123/83 05/31/21 11:01 129 H 23 123/83 05/31/21 10:30 110 H 21 120/77 05/31/21 10:01 117 H 20 124/83 05/31/21 09:30 120 H 31 H 91/67 05/31/21 09:00 111 H 20 94/67 05/31/21 08:30 90 13 94/66 05/31/21 08:01 100 H 12 99/72 05/31/21 08:00 99.5 F 85 85 14 05/31/21 07:42 78 83/44 05/31/21 07:30 77 13 83/44 05/31/21 07:00 80 13 94/48 05/31/21 06:30 113 H 18 97/67 05/31/21 06:00 88 14 80/46 05/31/21 05:30 106 H 20 108/67 05/31/21 05:00 111 H 17 113/66 05/31/21 04:30 114 H 20 98/68 05/31/21 04:00 99.2 F 102 H 88 25 H 99/59 05/31/21 03:48 107 H 91/49 05/31/21 03:30 109 H 20 98/54 05/31/21 03:00 118 H 24 114/57 05/31/21 02:30 126 H 29 H 112/77 05/31/21 02:00 88 20 80/46 05/31/21 01:30 83 20 98/60 05/31/21 01:00 83 18 90/57 05/31/21 00:30 83 18 104/54 05/31/21 00:00 97.6 F 83 83 17 98/47 05/30/21 23:30 83 16 93/49 05/30/21 23:00 81 17 85/42 05/30/21 22:30 82 20 112/67 05/30/21 22:00 104 H 21 109/66 05/30/21 21:30 123 H 19 114/86 05/30/21 21:10 97 H 16 118/78 05/30/21 21:00 129 H 16 92/52 05/30/21 20:44 83 98/47 05/30/21 20:30 83 18 98/47 05/30/21 20:00 97.8 F 83 103 H 20 100/49 05/30/21 19:30 115 H 27 H 108/69 05/30/21 19:00 91 H 20 89/46 05/30/21 18:30 112 H 23 102/61 05/30/21 18:00 93 H 17 96/54 05/30/21 17:30 108 H 25 H 107/67 05/30/21 17:00 115 H 20 104/53 05/30/21 16:30 88 20 89/42 05/30/21 16:00 98.7 F 124 H 81 35 H 85/44 05/30/21 15:41 81 92/51 05/30/21 15:30 81 19 92/51 05/30/21 15:00 81 17 96/46 05/30/21 14:30 82 20 88/47 05/30/21 14:00 83 18 93/53 Pulse Ox 05/31/21 12:00 97 05/31/21 11:52 05/31/21 11:30 97 05/31/21 11:19 99 05/31/21 11:11 05/31/21 11:01 92 05/31/21 10:30 100 05/31/21 10:01 100 05/31/21 09:30 100 05/31/21 09:00 99 05/31/21 08:30 99 05/31/21 08:01 99 05/31/21 08:00 100 05/31/21 07:42 100 05/31/21 07:30 100 05/31/21 07:00 100 05/31/21 06:30 100 05/31/21 06:00 99 05/31/21 05:30 99 05/31/21 05:00 100 05/31/21 04:30 100 05/31/21 04:00 100 05/31/21 03:48 100 05/31/21 03:30 100 05/31/21 03:00 100 05/31/21 02:30 100 05/31/21 02:00 97 05/31/21 01:30 100 05/31/21 01:00 100 05/31/21 00:30 100 05/31/21 00:00 99 05/30/21 23:30 99 05/30/21 23:00 100 05/30/21 22:30 100 05/30/21 22:00 99 05/30/21 21:30 100 05/30/21 21:10 100 05/30/21 21:00 100 05/30/21 20:44 99 05/30/21 20:30 99 05/30/21 20:00 99 05/30/21 19:30 99 05/30/21 19:00 97 05/30/21 18:30 99 05/30/21 18:00 98 05/30/21 17:30 98 05/30/21 17:00 100 05/30/21 16:30 98 05/30/21 16:00 99 05/30/21 15:41 99 05/30/21 15:30 99 05/30/21 15:00 100 05/30/21 14:30 100 05/30/21 14:00 99 - Physical Examination General: Other (intubated/sedated) HEENT: Positive: Normocephaly Neck: Positive: neck supple, trachea midline. Negative: JVD/HJR Cardiac: Positive: Regular Rhythm, Tachycardia Lungs: Positive: Ventilated Respirations Neuro: Positive: Other (agitated) Abdomen: Positive: Soft Skin: Negative: Rash Extremities: Present: edema, warm - Labs and Meds CBC 05/31/21 Range/Units 04:00 WBC 11.2 H (4.5-11.0) K/mm3 RBC 3.83 (3.65-5.03) M/mm3 Hgb 10.9 L (11.8-15.2) gm/dl Hct 34.3 L (35.5-45.6) % Plt Count 259 (140-440) K/mm3 Comprehensive Metabolic Panel 05/31/21 Range/Units 04:00 Sodium 148 H (137-145) mmol/L Potassium 3.8 (3.6-5.0) mmol/L Chloride 114.8 H (98-107) mmol/L Carbon Dioxide 23 (22-30) mmol/L BUN 14 (9-20) mg/dL Creatinine 0.8 (0.8-1.3) mg/dL Glucose 151 H (75-100) mg/dL Calcium 8.4 (8.4-10.2) mg/dL - Imaging and Cardiology EKG: report reviewed, image reviewed Echo: report reviewed Cardiac cath: report reviewed - Telemetry EKG Rhythm: Sinus Tachycardia - EKG Sinus rhythms and dysrhythmias: sinus tachycardia Ventricular dysrhythmias: ventricular premature com Repolarization changes or abnormalities: nonspecific abnormality, ST segment, and/or T wave - Allied health notes Allied health notes reviewed: nursing
[2021-05-31] MEDS: FREE WATER PO SCH ×2 (16:04→21:24)
--- NOTE | 2021-05-31 19:10 | Progress Note ---
<NAUN RASHIDNina - Last Filed: 05/31/21 19:08> Assessment and Plan Assessment and plan: Assessment and Plan This is a 40-year-old male with HFrEF, methamphetamine and nicotine dependence admitted for drug overdose and acute metabolic encephalopathy. Patient was intubated in the emergency department for airway protection. Acute toxic metabolic encephalopathy, overdose, h/o polysubstance abuse -UDS positive for amphetamines -Sedated with Precedex and fentanyl drips at max -Fentanyl stopped due to extubation -As needed Ativan and Haldol -Maintain sleep-wake cycle -Reorientation as needed Acute hypoxic respiratory failure -Intubated on 05/23 in the ED for airway protection with 7.50 ETT at 24 at the lips -A.m. vent settings: CMV tidal line 500, rate 12, PEEP 6, 40% FiO2 -See RT notes for titration -Extubated to Ventimask and switched to BiPAP due to tachypnea -Pulmonary hygiene -SPO2 monitoring Acute kidney injury secondary to acute tubular necrosis, hypernatremia -BUN/creatinine increased to 3.5/33 -Nephrology consulted, appreciate recommendations -Strict intake and output -Maintain Fajardo catheter -Avoid nephrotoxic medications -Renally dose medications -Trend BMP -Free water flush Sepsis, POA, lactic acidosis, leukocytosis -Presented with febrile illness, lactic acidosis, leukocytosis now with hypotension -COVID-19 PCR negative -UA negative -Blood culture/urine culture no growth to date -Tracheal aspirate with beta-hemolytic strep group F -S/p ABX for 3 days -S/p vasopressor support -Monitor fever and WBC curve HFrEF, cardiomegaly - Cardiology on consult, appreciated recommendations - 05/25/2021: Echo- EF 20 to 25%. Severe global hypokinesis of left ventricle. Left ventricle is moderately dilated. Doppler flow suggests impaired LV relaxation. Moderate mitral regurgitation. No pericardial effusion - 08/04/2020: Cardiac cath- Angiographically normal coronary arteries. This is indicative of a nonischemic cardiomyopathy. Mildly elevated biventricular filling pressures with normal cardiac index - 08/02/2020: Echo- EF 18%,Severe global LV hypokinesis. Normal LV diastolic function. LA mildly dilated. Moderate mitral regurgitation with an eccentric MR jet(s),No previous echocardiogram for comparison. -IV Lasix -Continue diuresis as tolerated DVT/GI prophylaxis -Lovenox subcu, PPI -SCD to bilateral lower extremities while in bed -Trend CBC -Transfuse for hemoglobin less than seven The high probability of a clinically significant, sudden or life threatening deterioration of the [multiple] system(s) required my full and direct attention, intervention and personal management. The aggregate critical care time was [60] minutes. This time is in addition to time spent performing reported procedures but includes the following: [x] Data Review and interpretation [x] Patient assessment and monitoring of vital signs [x] Documentation [x] Medication orders and management Disposition Plan: ICU Total Time Spent with Patient (Minutes): 60 Disposition Plan: icu Total Time Spent with Patient (Minutes): 60 History Interval history: This is a 40-year-old male with methamphetamine and nicotine dependence who presented to the emergency department via EMS was called after the being found down and unresponsive by family. Per family patient "overdose on GHB." EMS administered intranasal Narcan without improvement in symptoms and transferred the patient to [facility] for further evaluation. Patient was intubated in the emergency department for airway protection. Patient was admitted to the hospital service with acute encephalopathy, hypothermia, respiratory failure with consults to CCM. Hospital Course to date: 05/25/2021: Worsening interstitial infiltrates. unclear if this is a developing pneumonia from aspiration/volume overload. Empiric abx coverage. ECHO with bubbl e study ordered. Placed on iv abx. kidney function improving. 05/26/2021: Tachycardic on levo gtt, advised RN to titrate down as long as MAP > 65. HR improved on my follow up encounter. PCCM titrating vent down. Renal function improving....Cr now 1.3. 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 05/27/2021: Extubated yesterday however in respiratory distress, re-intubated. Patient has severe systolic heart failure. Cardiology consulted for severe systolic heart failure. Will need to discuss optimal strategy regarding diuresis. 05/28: Patient remains on the vent. Febrile overnight, no longer on IV abx, leukocytosis improved, will panculture patient for now hold off on IV Abx. D/W CCM plan to wean sedation, depends on patient's mental status possible extubation today. Patient with low EF 20 to 25%, IVF D/nickolas. FWF for hypernatrenia, repeat lab in the am. 05/29- With increased agitation and tachycardia, maxed out on precedex and fentanyl gtt. Patient appears to be in withdrawal, Ativan added. Remains febrile, off pressors this am, leukocytosis improved. Continue to f/u on culture data. Hypernatremia this am, on D5w per nephro, electrolyte repleted, repeat labs in the am 05/30: Patient very aggresive this am maxed on sedation, X1 dose of Geodeon ordered. Now on low dose Levophed, patient still with low grade fevers this am. Hypotension is probably r/t sedation. Recent cultures with NGTD, UA negative. Continue to monitor for now. Na improved, IVF off this and K repleted, repeat l abs in the am. 05/31: Patient was extubated today, IV fluid discontinued, given Lasix per cardiology, increasing free water flush. Weaned off Levophed. Patient noted to be lethargic several hours post Precedex infusion discontinuation. Patient extubated to BiPAP after given racemic epinephrine. Patient remains lethargic and off of BiPAP will consider CT head in the a.m. Hospitalist Physical - Constitutional Vitals: Temp Pulse Resp BP Pulse Ox 99.3 F 108 H 15 113/67 97 05/31/21 17:49 05/31/21 19:00 05/31/21 19:00 05/31/21 19:00 05/31/21 19:00 General appearance: Present: mild distress, obese, other (Intubated and sedated) - EENT Eyes: Present: PERRL, EOM intact - Neck Neck: Present: normal ROM - Respiratory Respiratory effort: normal Respiratory: bilateral: diminished - Cardiovascular Rhythm: regular Heart Sounds: Present: S1 & S2. Absent: systolic murmur, diastolic murmur - Extremities Extremities: no ischemia, pulses intact, pulses symmetrical, normal temperature, normal color Extremity abnormal: edema Peripheral Pulses: within normal limits - Abdominal General gastrointestinal: soft, non-tender, non-distended, normal bowel sounds - Integumentary Integumentary: Present: warm, dry - Psychiatric Psychiatric: agitated, depressed - Neurologic Neurologic: CNII-XII intact, no focal deficits, moves all extremities - Allied Health Allied health notes reviewed: nursing, RT HEART Score - HEART Score Troponin: Troponin T < 0.010 ng/mL (0.00-0.029) 05/23/21 09:38 Results - Labs CBC & Chem 7: 05/31/21 04:00 05/31/21 04:00 Labs: Laboratory Last Values WBC 11.2 K/mm3 (4.5-11.0) H 05/31/21 04:00 RBC 3.83 M/mm3 (3.65-5.03) 05/31/21 04:00 Hgb 10.9 gm/dl (11.8-15.2) L 05/31/21 04:00 Hct 34.3 % (35.5-45.6) L 05/31/21 04:00 MCV 90 fl (84-94) 05/31/21 04:00 MCH 28 pg (28-32) 05/31/21 04:00 MCHC 32 % (32-34) 05/31/21 04:00 RDW 15.4 % (13.2-15.2) H 05/31/21 04:00 Plt Count 259 K/mm3 (140-440) 05/31/21 04:00 Lymph % (Auto) 11.2 % (13.4-35.0) L 05/28/21 10:05 Haakon % (Auto) 8.6 % (0.0-7.3) H 05/28/21 10:05 Eos % (Auto) 0.8 % (0.0-4.3) 05/28/21 10:05 Baso % (Auto) 0.5 % (0.0-1.8) 05/28/21 10:05 Lymph # (Auto) 1.3 K/mm3 (1.2-5.4) 05/28/21 10:05 Haakon # (Auto) 1.0 K/mm3 (0.0-0.8) H 05/28/21 10:05 Eos # (Auto) 0.1 K/mm3 (0.0-0.4) 05/28/21 10:05 Baso # (Auto) 0.1 K/mm3 (0.0-0.1) 05/28/21 10:05 Add Manual Diff Complete 05/27/21 03:18 Total Counted 100 05/27/21 03:18 Seg Neutrophils % 78.9 % (40.0-70.0) H 05/28/21 10:05 Seg Neuts % (Manual) 92.0 % (40.0-70.0) H 05/27/21 03:18 Band Neutrophils % 0 % 05/27/21 03:18 Lymphocytes % (Manual) 5.0 % (13.4-35.0) L 05/27/21 03:18 Reactive Lymphs % (Man) 0 % 05/27/21 03:18 Monocytes % (Manual) 3.0 % (0.0-7.3) 05/27/21 03:18 Eosinophils % (Manual) 0 % (0.0-4.3) 05/27/21 03:18 Basophils % (Manual) 0 % (0.0-1.8) 05/27/21 03:18 Metamyelocytes % 0 % 05/27/21 03:18 Myelocytes % 0 % 05/27/21 03:18 Promyelocytes % 0 % 05/27/21 03:18 Blast Cells % 0 % 05/27/21 03:18 Nucleated RBC % Not Reportable 05/27/21 03:18 Seg Neutrophils # 9.0 K/mm3 (1.8-7.7) H 05/28/21 10:05 Seg Neutrophils # Man 19.8 K/mm3 (1.8-7.7) H 05/27/21 03:18 Band Neutrophils # 0.0 K/mm3 05/27/21 03:18 Lymphocytes # (Manual) 1.1 K/mm3 (1.2-5.4) L 05/27/21 03:18 Abs React Lymphs (Man) 0.0 K/mm3 05/27/21 03:18 Monocytes # (Manual) 0.6 K/mm3 (0.0-0.8) 05/27/21 03:18 Eosinophils # (Manual) 0.0 K/mm3 (0.0-0.4) 05/27/21 03:18 Basophils # (Manual) 0.0 K/mm3 (0.0-0.1) 05/27/21 03:18 Metamyelocytes # 0.0 K/mm3 05/27/21 03:18 Myelocytes # 0.0 K/mm3 05/27/21 03:18 Promyelocytes # 0.0 K/mm3 05/27/21 03:18 Blast Cells # 0.0 K/mm3 05/27/21 03:18 WBC Morphology Not Reportable 05/27/21 03:18 Hypersegmented Neuts Not Reportable 05/27/21 03:18 Hyposegmented Neuts Not Reportable 05/27/21 03:18 Hypogranular Neuts Not Reportable 05/27/21 03:18 Smudge Cells Not Reportable 05/27/21 03:18 Toxic Granulation Not Reportable 05/27/21 03:18 Toxic Vacuolation Not Reportable 05/27/21 03:18 Dohle Bodies Not Reportable 05/27/21 03:18 Pelger-Huet Anomaly Not Reportable 05/27/21 03:18 Glenn Rods Not Reportable 05/27/21 03:18 Platelet Estimate Consistent w auto 05/27/21 03:18 Clumped Platelets Not Reportable 05/27/21 03:18 Plt Clumps, EDTA Not Reportable 05/27/21 03:18 Large Platelets Not Reportable 05/27/21 03:18 Giant Platelets Not Reportable 05/27/21 03:18 Platelet Satelliting Not Reportable 05/27/21 03:18 Plt Morphology Comment Not Reportable 05/27/21 03:18 RBC Morphology Normal 05/27/21 03:18 Dimorphic RBCs Not Reportable 05/27/21 03:18 Polychromasia Not Reportable 05/27/21 03:18 Hypochromasia Not Reportable 05/27/21 03:18 Poikilocytosis Not Reportable 05/27/21 03:18 Anisocytosis Not Reportable 05/27/21 03:18 Microcytosis Not Reportable 05/27/21 03:18 Macrocytosis Not Reportable 05/27/21 03:18 Spherocytes Not Reportable 05/27/21 03:18 Pappenheimer Bodies Not Reportable 05/27/21 03:18 Sickle Cells Not Reportable 05/27/21 03:18 Target Cells Not Reportable 05/27/21 03:18 Tear Drop Cells Not Reportable 05/27/21 03:18 Ovalocytes Not Reportable 05/27/21 03:18 Helmet Cells Not Reportable 05/27/21 03:18 [place] Bodies Not Reportable 05/27/21 03:18 Grant Rings Not Reportable 05/27/21 03:18 Giorgio Cells Not Reportable 05/27/21 03:18 Bite Cells Not Reportable 05/27/21 03:18 Crenated Cell Not Reportable 05/27/21 03:18 Elliptocytes Not Reportable 05/27/21 03:18 Acanthocytes (Spur) Not Reportable 05/27/21 03:18 Rouleaux Not Reportable 05/27/21 03:18 Hemoglobin C Crystals Not Reportable 05/27/21 03:18 Schistocytes Not Reportable 05/27/21 03:18 Malaria parasites Not Reportable 05/27/21 03:18 Frandy Bodies Not Reportable 05/27/21 03:18 Hem Pathologist Commnt No 05/27/21 03:18 ABG pH 7.380 pH Units (7.350-7.450) 05/29/21 03:00 POC ABG pCO2 41.6 mmHg (32.0-48.0) 05/24/21 03:44 ABG pCO2 36.2 mm Hg 05/29/21 03:00 POC ABG pO2 87.6 mmHg (83-108) 05/24/21 03:44 ABG pO2 138.1 mm Hg (80.0-90.0) H 05/29/21 03:00 POC ABG HCO3 17.5 05/24/21 03:44 ABG HCO3 21.0 mmol/L (20.0-26.0) 05/29/21 03:00 ABG O2 Saturation 98.7 % (95.0-99.0) 05/29/21 03:00 ABG O2 Content 17.5 (0.0-44) 05/29/21 03:00 POC ABG Base Excess -9.5 05/24/21 03:44 ABG Base Excess -3.6 mmol/L (-2.0-3.0) L 05/29/21 03:00 ABG Hemoglobin 12.8 gm/dl (14.0-18.0) L 05/29/21 03:00 ABG Oxyhemoglobin 94.8 (94-98) 05/24/21 03:44 ABG Carboxyhemoglobin 2.0 % (0.0-5.0) 05/29/21 03:00 ABG Methemoglobin 0.5 % (0.0-1.5) 05/29/21 03:00 ABG Sodium 137.9 mmol/L (136.0-145.0) 05/24/21 03:44 ABG Potassium 5.6 mmol/L (3.40-4.50) H 05/24/21 03:44 ABG Chloride 105.0 mmol/L (98-107) 05/24/21 03:44 ABG Glucose 53 mg/dL (65-95) L 05/24/21 03:44 Oxyhemoglobin 96.1 % (95.0-99.0) 05/29/21 03:00 Carboxyhemoglobin 0.8 (0.5-1.5) 05/24/21 03:44 FiO2 40 % 05/29/21 03:00 FiO2 % 100.0 05/24/21 03:44 Sodium 148 mmol/L (137-145) H 05/31/21 04:00 Potassium 3.8 mmol/L (3.6-5.0) 05/31/21 04:00 Chloride 114.8 mmol/L (98-107) H 05/31/21 04:00 Carbon Dioxide 23 mmol/L (22-30) 05/31/21 04:00 Anion Gap 14 mmol/L 05/31/21 04:00 BUN 14 mg/dL (9-20) 05/31/21 04:00 Creatinine 0.8 mg/dL (0.8-1.3) 05/31/21 04:00 Estimated GFR > 60 ml/min 05/31/21 04:00 BUN/Creatinine Ratio 18 % 05/31/21 04:00 Glucose 151 mg/dL (75-100) H 05/31/21 04:00 POC Glucose 107 mg/dL (70-105) H 05/31/21 16:16 Lactic Acid 2.10 mmol/L (0.7-2.0) H* 05/28/21 10:05 Calcium 8.4 mg/dL (8.4-10.2) 05/31/21 04:00 Phosphorus 2.60 mg/dL (2.5-4.5) D 05/31/21 04:00 Magnesium 1.70 mg/dL (1.7-2.3) 05/31/21 04:00 Total Bilirubin 7.80 mg/dL (0.1-1.2) H 05/27/21 03:18 Total Bilirubin 7.90 mg/dL (0.1-1.2) H 05/27/21 03:18 Direct Bilirubin 6.0 mg/dL (0-0.2) H 05/27/21 03:18 Indirect Bilirubin 1.9 mg/dL 05/27/21 03:18 AST 112 units/L (5-40) H 05/27/21 03:18 AST 114 units/L (5-40) H 05/27/21 03:18 ALT 38 units/L (7-56) 05/27/21 03:18 ALT 38 units/L (7-56) 05/27/21 03:18 Alkaline Phosphatase 111 units/L (35-129) 05/27/21 03:18 Alkaline Phosphatase 126 units/L (35-129) 05/27/21 03:18 Total Creatine Kinase 556 units/L (55-170) H 05/24/21 09:35 Troponin T < 0.010 ng/mL (0.00-0.029) 05/23/21 09:38 C-Reactive Protein 34.80 mg/dL (0.00-1.30) H 05/28/21 10:05 NT-Pro-B Natriuret Pep 6058 pg/mL (0-450) H 05/23/21 09:38 Total Protein 5.2 g/dL (6.3-8.2) L 05/27/21 03:18 Total Protein 5.2 g/dL (6.3-8.2) L 05/27/21 03:18 Albumin 2.8 g/dL (3.9-5) L 05/27/21 03:18 Albumin 2.9 g/dL (3.9-5) L 05/27/21 03:18 Albumin/Globulin Ratio 1.2 % 05/27/21 03:18 Albumin/Globulin Ratio 1.3 % 05/27/21 03:18 Procalcitonin 12.51 ng/mL (<0.15) 05/28/21 10:05 Arterial Blood Glucose 53 mg/dL (65-95) L 05/24/21 03:44 Arterial Blood Ionized Calcium 4.6 mg/dL (4.6-5.3) 05/24/21 03:44 Urine Color Sherri (Yellow) 05/28/21 12:20 Urine Turbidity Clear (Clear) 05/28/21 12:20 Urine pH 6.0 (5.0-7.0) 05/28/21 12:20 Ur Specific [place] 1.017 (1.003-1.030) 05/28/21 12:20 Urine Protein 30 mg/dl mg/dL (Negative) 05/28/21 12:20 Urine Glucose (UA) Neg mg/dL (Negative) 05/28/21 12:20 Urine Ketones Neg mg/dL (Negative) 05/28/21 12:20 Urine Blood Mod (Negative) 05/28/21 12:20 Urine Nitrite Neg (Negative) 05/28/21 12:20 Urine Bilirubin Mod (Negative) 05/28/21 12:20 Urine Ictotest Positive (Negative) 05/28/21 12:20 Urine Urobilinogen 4.0 mg/dL (<2.0) 05/28/21 12:20 Ur Leukocyte Esterase Neg (Negative) 05/28/21 12:20 Urine WBC (Auto) 3.0 /HPF (0.0-6.0) 05/28/21 12:20 Urine RBC (Auto) 4.0 /HPF (0.0-6.0) 05/28/21 12:20 U Epithel Cells (Auto) < 1.0 /HPF (0-13.0) 05/28/21 12:20 Urine Bacteria (Auto) 1+ /HPF (Negative) 05/28/21 12:20 Urine Mucus Few /HPF 05/28/21 12:20 Urine Yeast (Budding) 1+ /HPF 05/24/21 Unknown Salicylates < 0.3 mg/dL (2.8-20.0) L 05/23/21 09:38 Urine Opiates Screen Negative 05/23/21 09:41 Urine Methadone Screen Negative 05/23/21 09:41 Acetaminophen 5.0 ug/mL (10.0-30.0) L 05/23/21 09:38 Ur Barbiturates Screen Negative 05/23/21 09:41 Ur Phencyclidine Scrn Negative 05/23/21 09:41 Ur Amphetamines Screen Positive 05/23/21 09:41 U Benzodiazepines Scrn Negative 05/23/21 09:41 Urine Cocaine Screen Negative 05/23/21 09:41 U Marijuana (THC) Screen Negative 05/23/21 09:41 Drugs of Abuse Note Disclamer 05/23/21 09:41 Coronavirus (PCR) Negative (Negative) 05/26/21 08:14 Hepatitis A IgM Ab Non-reactive (NonReactive) 05/27/21 16:00 Hep Bs Antigen Non-reactive (Negative) 05/27/21 16:00 Hep B Core IgM Ab Non-reactive (NonReactive) 05/27/21 16:00 Hepatitis C Antibody Non-reactive (NonReactive) 05/27/21 16:00 Microbiology: Microbiology 05/28/21 10:05 Peripheral/Venous Blood Culture - Preliminary NO GROWTH AFTER 72 HOURS 05/28/21 10:05 Peripheral/Venous Blood Culture - Preliminary NO GROWTH AFTER 72 HOURS Fajardo/IV: Voiding Method Indwelling Catheter Active Medications - Current Medications Current Medications: Generic Name Dose Route Start Last Admin Trade Name Freq PRN Reason Stop Dose Admin Acetaminophen 650 mg 05/23/21 11:43 05/31/21 03:22 Acetaminophen 650 Mg Rect Supp MD 650 mg Q6H PRN Administration Pain MILD(1-3)/Fever >100.5/EPSTEIN Lipase/Protease/Amylase 1 each 05/29/21 08:45 Lipase 10,500/Protease 25,000/Amylase 43,750 (Units) Dr Mitchell FEEDTUBE PRN PRN For Clogged Feeding Tube Dextrose 0 ml 05/31/21 10:47 Dextrose 10% *Hypoglycemia IV PRN PRN Hypoglycemia Enoxaparin Sodium 40 mg 05/28/21 15:00 05/31/21 09:06 Enoxaparin 40 Mg/0.4 Ml Inj SUB-Q 40 mg QDAY@1000 MARK Administration Famotidine 20 mg 05/31/21 22:00 Famotidine 20 Mg/2 Ml Inj IV BID MARK Haloperidol Lactate 5 mg 05/30/21 12:18 05/31/21 14:29 Haloperidol Lactate 5 Mg/1 Ml Inj IV 5 mg Q6H PRN Administration Agitation Hydromorphone HCl 0.5 mg 05/23/21 11:43 05/29/21 09:18 Hydromorphone 1 Mg/1 Ml Inj IV 0.5 mg Q24H PRN Administration Pain , Severe (7-10) Dexmedetomidine HCl 400 mcg/ 104 mls @ 5.307 mls/hr 05/24/21 05:00 05/31/21 17:15 Sodium Chloride IV 0 mcg/kg/hr TITRATE MARK 0 mls/hr Titration Protocol 0.2 MCG/KG/HR NORepinephrine/NS 8 MG-250 ML 8 mg in 250 mls @ 3.75 mls/hr 05/24/21 11:00 05/31/21 14:52 Norepinephrine/Ns 8 Mg-250 Ml (Double Conc) IV 2 mcg/min TITRATE MARK 3.75 mls/hr Titration Protocol 2 MCG/MIN Lorazepam 2 mg 05/31/21 11:00 Lorazepam 2 Mg/Ml Vial IV Q4H PRN Agitation Metoprolol Tartrate 12.5 mg 05/28/21 14:00 05/31/21 11:11 Metoprolol Tartrate 25 Mg Tab PO 12.5 mg BID MARK Administration Morphine Sulfate 2 mg 05/23/21 11:43 Morphine 2 Mg/1 Ml Inj IV Q24H PRN Pain, Moderate (4-6) Ondansetron HCl 4 mg 05/23/21 11:43 Ondansetron 4 Mg/2 Ml Inj IV Q8H PRN Nausea And Vomiting Senna 17.2 mg 05/28/21 22:00 05/30/21 21:28 Sennosides 8.6 Mg Tab PO 17.2 mg QHS MARK Administration Simple Syrup 15 ml 05/29/21 08:45 Simple Syrup 15 Ml FEEDTUBE PRN PRN Hypoglycemia Simple Syrup 30 ml 05/29/21 08:45 Simple Syrup 15 Ml FEEDTUBE PRN PRN Hypoglycemia Sodium Bicarbonate 325 mg 05/29/21 08:45 Sodium Bicarbonate 325 Mg Tab FEEDTUBE PRN PRN For Clogged Feeding Tube Sodium Chloride 10 ml 05/23/21 22:00 05/31/21 09:07 Sodium Chloride 0.9% 10 Ml Flush Syringe IV 10 ml BID MARK Administration Sodium Chloride 10 ml 05/23/21 11:43 Sodium Chloride 0.9% 10 Ml Flush Syringe IV PRN PRN LINE FLUSH Sodium Chloride 10 ml 05/31/21 09:50 Sodium Chloride 0.9% 50 Ml Ivpb IV PRN PRN FLUSH Vitamin B Complex/Folic Acid 1 each 05/30/21 10:00 05/31/21 09:06 Folbee Plus Cz (Folic Acid/Vit Bcomp&C/Cu/Znox) PO 1 each QDAY MARK Administration Nutrition/Malnutrition Assess - Dietary Evaluation Nutrition/Malnutrition Findings: Nutrition Notes Start: 05/28/21 12:16 Freq: Status: Active Protocol: Document 05/31/21 15:28 GREGG (Rec: 05/31/21 15:51 GREGG [id number]) Nutrition Notes Initial or Follow up Brief Note Current Diet TF-Vital HP @ 70 ml/hr (since D 05/31). Height 6 ft Weight 102.058 kg Alexander Body Weight (kg) 80.90 BMI 30.5 Weight change and time frame No body weight change in 2 days reported. Subjective/Other Information RD consult for routine F/u on TF tolerance. Pt extubated from mechanical ventilation, now on Bi-PaP+ tolerating well. TF continues as prescribed. Percent of energy/protein needs met: Prescribed Vital HP @ 70 ml/hr provides for energy/protein needs (1,655 Kcal/145 g) during LOS, 70% Kcal; 89% AA. #1 Nutrition Diagnosis Inadequate oral intake Diagnosis Progress(for reassessment Continues documentation) Is patient on ventilator? Yes Is Patient Ambulatory and/or Out of Bed No REE-([facility]-confined to bed) [phone] Calculation Used for Recommendations 65-70% energy needs Additional Notes Energy needs: 6392-9193 kcal/ day Pro needs 2g/kg IBW: 162g/day Fluid needs 1ml/kcal Nutrition Intervention Nutrition Support: Continue Vital HP @ 70 ml/hr. Flush: 170 ml water Q 4 hr, or as per MD. Kcal 1,655 Protein (gm) 145 Carbohydrates (gm) 185 Fat (gm) 38 Fluid (mL) 1,384 Fiber (gm) 0 % RDI: 70% Kcal; 89% AA. Goal #1 Provide at least 75% of energy /protein needs through Enteral Feeding during LOS. Goal #2 Maintain body weight within +/ -3% of admission body weight during LOS. Follow-Up By: 06/07/21 Additional Comments Continue monitoring TF tolerance and BM. <LUZ LEE E - Last Filed: 06/04/21 09:40> Assessment and Plan Assessment and plan: I saw and evaluated the patient. I agree with the findings and the plan of care as documented in the Nurse Practitioner's~note, with the following corrections and additions. Hospitalist Physical - Constitutional Vitals: Temp Pulse Resp BP Pulse Ox 99.8 F H 109 H 15 133/70 100 06/04/21 08:00 06/04/21 09:00 06/04/21 09:00 06/04/21 09:00 06/04/21 09:00 HEART Score - HEART Score Troponin: Troponin T < 0.010 ng/mL (0.00-0.029) 05/23/21 09:38 Results - Labs CBC & Chem 7: 06/04/21 04:10 06/04/21 04:10 Labs: Laboratory Last Values WBC 11.7 K/mm3 (4.5-11.0) H 06/04/21 04:10 RBC 4.06 M/mm3 (3.65-5.03) 06/04/21 04:10 Hgb 11.2 gm/dl (11.8-15.2) L 06/04/21 04:10 Hct 36.0 % (35.5-45.6) 06/04/21 04:10 MCV 89 fl (84-94) 06/04/21 04:10 MCH 28 pg (28-32) 06/04/21 04:10 MCHC 31 % (32-34) L 06/04/21 04:10 RDW 15.8 % (13.2-15.2) H 06/04/21 04:10 Plt Count 447 K/mm3 (140-440) H 06/04/21 04:10 Lymph % (Auto) 11.2 % (13.4-35.0) L 05/28/21 10:05 Haakon % (Auto) 8.6 % (0.0-7.3) H 05/28/21 10:05 Eos % (Auto) 0.8 % (0.0-4.3) 05/28/21 10:05 Baso % (Auto) 0.5 % (0.0-1.8) 05/28/21 10:05 Lymph # (Auto) 1.3 K/mm3 (1.2-5.4) 05/28/21 10:05 Haakon # (Auto) 1.0 K/mm3 (0.0-0.8) H 05/28/21 10:05 Eos # (Auto) 0.1 K/mm3 (0.0-0.4) 05/28/21 10:05 Baso # (Auto) 0.1 K/mm3 (0.0-0.1) 05/28/21 10:05 Add Manual Diff Complete 05/27/21 03:18 Total Counted 100 05/27/21 03:18 Seg Neutrophils % 78.9 % (40.0-70.0) H 05/28/21 10:05 Seg Neuts % (Manual) 92.0 % (40.0-70.0) H 05/27/21 03:18 Band Neutrophils % 0 % 05/27/21 03:18 Lymphocytes % (Manual) 5.0 % (13.4-35.0) L 05/27/21 03:18 Reactive Lymphs % (Man) 0 % 05/27/21 03:18 Monocytes % (Manual) 3.0 % (0.0-7.3) 05/27/21 03:18 Eosinophils % (Manual) 0 % (0.0-4.3) 05/27/21 03:18 Basophils % (Manual) 0 % (0.0-1.8) 05/27/21 03:18 Metamyelocytes % 0 % 05/27/21 03:18 Myelocytes % 0 % 05/27/21 03:18 Promyelocytes % 0 % 05/27/21 03:18 Blast Cells % 0 % 05/27/21 03:18 Nucleated RBC % Not Reportable 05/27/21 03:18 Seg Neutrophils # 9.0 K/mm3 (1.8-7.7) H 05/28/21 10:05 Seg Neutrophils # Man 19.8 K/mm3 (1.8-7.7) H 05/27/21 03:18 Band Neutrophils # 0.0 K/mm3 05/27/21 03:18 Lymphocytes # (Manual) 1.1 K/mm3 (1.2-5.4) L 05/27/21 03:18 Abs React Lymphs (Man) 0.0 K/mm3 05/27/21 03:18 Monocytes # (Manual) 0.6 K/mm3 (0.0-0.8) 05/27/21 03:18 Eosinophils # (Manual) 0.0 K/mm3 (0.0-0.4) 05/27/21 03:18 Basophils # (Manual) 0.0 K/mm3 (0.0-0.1) 05/27/21 03:18 Metamyelocytes # 0.0 K/mm3 05/27/21 03:18 Myelocytes # 0.0 K/mm3 05/27/21 03:18 Promyelocytes # 0.0 K/mm3 05/27/21 03:18 Blast Cells # 0.0 K/mm3 05/27/21 03:18 WBC Morphology Not Reportable 05/27/21 03:18 Hypersegmented Neuts Not Reportable 05/27/21 03:18 Hyposegmented Neuts Not Reportable 05/27/21 03:18 Hypogranular Neuts Not Reportable 05/27/21 03:18 Smudge Cells Not Reportable 05/27/21 03:18 Toxic Granulation Not Reportable 05/27/21 03:18 Toxic Vacuolation Not Reportable 05/27/21 03:18 Dohle Bodies Not Reportable 05/27/21 03:18 Pelger-Huet Anomaly Not Reportable 05/27/21 03:18 Glenn Rods Not Reportable 05/27/21 03:18 Platelet Estimate Consistent w auto 05/27/21 03:18 Clumped Platelets Not Reportable 05/27/21 03:18 Plt Clumps, EDTA Not Reportable 05/27/21 03:18 Large Platelets Not Reportable 05/27/21 03:18 Giant Platelets Not Reportable 05/27/21 03:18 Platelet Satelliting Not Reportable 05/27/21 03:18 Plt Morphology Comment Not Reportable 05/27/21 03:18 RBC Morphology Normal 05/27/21 03:18 Dimorphic RBCs Not Reportable 05/27/21 03:18 Polychromasia Not Reportable 05/27/21 03:18 Hypochromasia Not Reportable 05/27/21 03:18 Poikilocytosis Not Reportable 05/27/21 03:18 Anisocytosis Not Reportable 05/27/21 03:18 Microcytosis Not Reportable 05/27/21 03:18 Macrocytosis Not Reportable 05/27/21 03:18 Spherocytes Not Reportable 05/27/21 03:18 Pappenheimer Bodies Not Reportable 05/27/21 03:18 Sickle Cells Not Reportable 05/27/21 03:18 Target Cells Not Reportable 05/27/21 03:18 Tear Drop Cells Not Reportable 05/27/21 03:18 Ovalocytes Not Reportable 05/27/21 03:18 Helmet Cells Not Reportable 05/27/21 03:18 [place] Bodies Not Reportable 05/27/21 03:18 [place] Rings Not Reportable 05/27/21 03:18 [place] Cells Not Reportable 05/27/21 03:18 Bite Cells Not Reportable 05/27/21 03:18 Crenated Cell Not Reportable 05/27/21 03:18 Elliptocytes Not Reportable 05/27/21 03:18 Acanthocytes (Spur) Not Reportable 05/27/21 03:18 Rouleaux Not Reportable 05/27/21 03:18 Hemoglobin C Crystals Not Reportable 05/27/21 03:18 Schistocytes Not Reportable 05/27/21 03:18 Malaria parasites Not Reportable 05/27/21 03:18 [place] Bodies Not Reportable 05/27/21 03:18 Hem Pathologist Commnt No 05/27/21 03:18 PT 15.8 Sec. (12.2-14.9) H 06/04/21 04:10 INR 1.14 (0.87-1.13) H 06/04/21 04:10 APTT 36.1 Sec. (24.2-36.6) 06/03/21 Unknown Heparin Anti-Xa Level 0.57 U.I./ml (0.3-0.7) 06/04/21 00:03 ABG pH 7.406 (7.320-7.450) 06/04/21 04:00 POC ABG pCO2 51.5 mmHg (32.0-48.0) H 06/04/21 04:00 ABG pCO2 54.4 mm Hg 06/02/21 05:42 POC ABG pO2 61.7 mmHg (83-108) L 06/04/21 04:00 ABG pO2 141.2 mm Hg (80.0-90.0) H 06/02/21 05:42 POC ABG HCO3 31.6 06/04/21 04:00 ABG HCO3 30.6 mmol/L (20.0-26.0) H 06/02/21 05:42 ABG O2 Saturation 92.7 (0-100) 06/04/21 04:00 ABG O2 Content 16.6 (0.0-44) 06/02/21 05:42 POC ABG Base Excess 5.7 06/04/21 04:00 ABG Base Excess 4.1 mmol/L (-2.0-3.0) H 06/02/21 05:42 ABG Hemoglobin 12.7 (12.0-17.5) 06/04/21 04:00 ABG Oxyhemoglobin 90.9 (94-98) L 06/04/21 04:00 ABG Carboxyhemoglobin 1.5 % (0.0-5.0) 06/02/21 05:42 ABG Methemoglobin 0.3 (0.0-1.5) 06/04/21 04:00 ABG Sodium 137.9 mmol/L (136.0-145.0) 05/24/21 03:44 ABG Potassium 5.6 mmol/L (3.40-4.50) H 05/24/21 03:44 ABG Chloride 105.0 mmol/L (98-107) 05/24/21 03:44 ABG Glucose 53 mg/dL (65-95) L 05/24/21 03:44 Oxyhemoglobin 96.7 % (95.0-99.0) 06/02/21 05:42 Carboxyhemoglobin 1.6 (0.5-1.5) H 06/04/21 04:00 FiO2 50 % 06/02/21 05:42 FiO2 % 35.0 06/04/21 04:00 Sodium 146 mmol/L (137-145) H 06/04/21 04:10 Potassium 3.7 mmol/L (3.6-5.0) 06/04/21 04:10 Chloride 109.4 mmol/L (98-107) H 06/04/21 04:10 Carbon Dioxide 29 mmol/L (22-30) 06/04/21 04:10 Anion Gap 11 mmol/L 06/04/21 04:10 BUN 9 mg/dL (9-20) 06/04/21 04:10 Creatinine 0.6 mg/dL (0.8-1.3) L 06/04/21 04:10 Estimated GFR > 60 ml/min 06/04/21 04:10 BUN/Creatinine Ratio 15 % 06/04/21 04:10 Glucose 122 mg/dL (75-100) H 06/04/21 04:10 POC Glucose 107 mg/dL (70-105) H 06/04/21 05:16 Lactic Acid 2.10 mmol/L (0.7-2.0) H* 05/28/21 10:05 Calcium 9.1 mg/dL (8.4-10.2) 06/04/21 04:10 Phosphorus 3.00 mg/dL (2.5-4.5) 06/02/21 07:41 Magnesium 1.70 mg/dL (1.7-2.3) 06/02/21 07:41 Total Bilirubin 2.90 mg/dL (0.1-1.2) H 06/02/21 20:00 Direct Bilirubin 2.4 mg/dL (0-0.2) H 06/02/21 07:41 Indirect Bilirubin 0.9 mg/dL 06/02/21 07:41 AST 53 units/L (5-40) H 06/02/21 20:00 ALT 30 units/L (7-56) 06/02/21 20:00 Alkaline Phosphatase 115 units/L (35-129) 06/02/21 20:00 Total Creatine Kinase 556 units/L (55-170) H 05/24/21 09:35 Troponin T < 0.010 ng/mL (0.00-0.029) 05/23/21 09:38 C-Reactive Protein 34.80 mg/dL (0.00-1.30) H 05/28/21 10:05 NT-Pro-B Natriuret Pep 6058 pg/mL (0-450) H 05/23/21 09:38 Total Protein 6.2 g/dL (6.3-8.2) L 06/02/21 20:00 Albumin 1.8 g/dL (3.9-5) L 06/02/21 20:00 Albumin/Globulin Ratio 0.4 % 06/02/21 20:00 Triglycerides 161 mg/dL (2-149) H 06/04/21 04:10 Procalcitonin 12.51 ng/mL (<0.15) 05/28/21 10:05 Arterial Blood Glucose 53 mg/dL (65-95) L 05/24/21 03:44 Arterial Blood Ionized Calcium 4.6 mg/dL (4.6-5.3) 05/24/21 03:44 Urine Color Sherri (Yellow) 05/28/21 12:20 Urine Turbidity Clear (Clear) 05/28/21 12:20 Urine pH 6.0 (5.0-7.0) 05/28/21 12:20 Ur Specific [place] 1.017 (1.003-1.030) 05/28/21 12:20 Urine Protein 30 mg/dl mg/dL (Negative) 05/28/21 12:20 Urine Glucose (UA) Neg mg/dL (Negative) 05/28/21 12:20 Urine Ketones Neg mg/dL (Negative) 05/28/21 12:20 Urine Blood Mod (Negative) 05/28/21 12:20 Urine Nitrite Neg (Negative) 05/28/21 12:20 Urine Bilirubin Mod (Negative) 05/28/21 12:20 Urine Ictotest Positive (Negative) 05/28/21 12:20 Urine Urobilinogen 4.0 mg/dL (<2.0) 05/28/21 12:20 Ur Leukocyte Esterase Neg (Negative) 05/28/21 12:20 Urine WBC (Auto) 3.0 /HPF (0.0-6.0) 05/28/21 12:20 Urine RBC (Auto) 4.0 /HPF (0.0-6.0) 05/28/21 12:20 U Epithel Cells (Auto) < 1.0 /HPF (0-13.0) 05/28/21 12:20 Urine Bacteria (Auto) 1+ /HPF (Negative) 05/28/21 12:20 Urine Mucus Few /HPF 05/28/21 12:20 Urine Yeast (Budding) 1+ /HPF 05/24/21 Unknown Salicylates < 0.3 mg/dL (2.8-20.0) L 05/23/21 09:38 Urine Opiates Screen Negative 05/23/21 09:41 Urine Methadone Screen Negative 05/23/21 09:41 Acetaminophen 5.0 ug/mL (10.0-30.0) L 05/23/21 09:38 Ur Barbiturates Screen Negative 05/23/21 09:41 Ur Phencyclidine Scrn Negative 05/23/21 09:41 Ur Amphetamines Screen Positive 05/23/21 09:41 U Benzodiazepines Scrn Negative 05/23/21 09:41 Urine Cocaine Screen Negative 05/23/21 09:41 U Marijuana (THC) Screen Negative 05/23/21 09:41 Drugs of Abuse Note Disclamer 05/23/21 09:41 Coronavirus (PCR) Negative (Negative) 05/26/21 08:14 Hepatitis A IgM Ab Non-reactive (NonReactive) 05/27/21 16:00 Hep Bs Antigen Non-reactive (Negative) 05/27/21 16:00 Hep B Core IgM Ab Non-reactive (NonReactive) 05/27/21 16:00 Hepatitis C Antibody Non-reactive (NonReactive) 05/27/21 16:00 Microbiology: Microbiology 06/01/21 12:25 Tracheal Aspirate Sputum Culture - Final [place]/IV: Voiding Method Indwelling Catheter Active Medications - Current Medications Current Medications: Generic Name Dose Route Start Last Admin Trade Name Freq PRN Reason Stop Dose Admin Acetaminophen 650 mg 05/23/21 11:43 05/31/21 03:22 Acetaminophen 650 Mg Rect Supp MD 650 mg Q6H PRN Administration Pain MILD(1-3)/Fever >100.5/EPSTEIN Lipase/Protease/Amylase 1 each 05/29/21 08:45 Lipase 10,500/Protease 25,000/Amylase 43,750 (Units) Dr Cap FEEDTUBE PRN PRN For Clogged Feeding Tube Dextrose 0 ml 05/31/21 10:47 Dextrose 10% *Hypoglycemia IV PRN PRN Hypoglycemia Famotidine 40 mg 06/02/21 22:00 06/03/21 21:11 Famotidine 20 Mg Tab FEEDTUBE 40 mg QHS MARK Administration Fentanyl 50 mcg 06/01/21 12:29 Fentanyl 100 Mcg/2 Ml Inj IV Q10MIN PRN ANALGESIA Haloperidol Lactate 5 mg 05/30/21 12:18 06/01/21 09:27 Haloperidol Lactate 5 Mg/1 Ml Inj IV 5 mg Q6H PRN Administration Agitation Heparin Sodium (Porcine) 4,100 unit 06/03/21 15:02 Heparin 10,000 Units/10 Ml Vial 40 unit/kg (4100 unit) IV Q6H PRN Anti-Xa Assay < 0.1 units/ml Hydrophilic Ointment 1 applic 06/01/21 12:30 Lip Therapy Vaseline TP Q2HR PRN Dry Lips Dexmedetomidine HCl 400 mcg/ 104 mls @ 5.307 mls/hr 05/24/21 05:00 06/04/21 09:34 Sodium Chloride IV 1.4 mcg/kg/hr TITRATE MARK 37.149 mls/hr Administration Protocol 0.2 MCG/KG/HR Fentanyl Citrate 2,000 mcg in 100 mls @ 5.103 mls/hr 06/01/21 13:00 06/04/21 08:36 Fentanyl Drip Premix IV 4 mcg/kg/hr TITR MARK 20.412 mls/hr Administration Protocol 1 MCG/KG/HR Propofol 1,000 mg in 100 mls @ 3.062 mls/hr 06/01/21 12:10 06/04/21 09:34 Diprivan 10 Mg/Ml IV 45 mcg/kg/min TITR MARK 27.556 mls/hr Administration Protocol 5 MCG/KG/MIN Ampicillin Sodium/Sulbactam Sodium 3 gm in 100 mls @ 200 mls/hr 06/03/21 11:00 06/04/21 09:35 Unasyn/Ns 3 Gm/100 Ml IV 200 mls/hr Q6H MARK Administration Protocol Midazolam HCl 100 mg/ Sodium 100 mls @ 1 mls/hr 06/03/21 11:00 06/04/21 03:05 Chloride IV 1 mg/hr TITR MARK 1 mls/hr Titration Protocol 1 MG/HR Heparin Sodium/Sodium Chloride 25,000 unit in 500 mls @ 30 mls/hr 06/03/21 16:00 06/04/21 06:14 Heparin/ 0.45% Nacl-25,000 Unit/500 Ml IV 0 units/hr TITR MARK 0 mls/hr Titration Protocol 1,500 UNITS/HR Lorazepam 2 mg 05/31/21 11:00 06/03/21 09:20 Lorazepam 2 Mg/Ml Vial IV 2 mg Q4H PRN Administration Agitation Midazolam HCl 2 mg 06/03/21 10:06 Midazolam 2 Mg/2 Ml Inj IV Q10MIN PRN Sedation Midodrine 5 mg 06/02/21 12:00 06/04/21 09:35 Midodrine 5 Mg Tab PO 5 mg TID@0800,1200,1600 MARK Administration Multi-Ingred Cream/Lotion/Oil/Oint 1 applic 06/01/21 12:30 Mineral Oil/Petrolatum, White Ophth Oint 3.5 Gm OU Q4HR PRN Dry Eye(s) Ondansetron HCl 4 mg 05/23/21 11:43 Ondansetron 4 Mg/2 Ml Inj IV Q8H PRN Nausea And Vomiting Senna/Docusate Sodium 1 tab 06/01/21 22:00 06/04/21 09:35 Sennosides/Docusate Sodium 8.6/50 Mg Tab FEEDTUBE 1 tab BID MARK Administration Simple Syrup 15 ml 05/29/21 08:45 Simple Syrup 15 Ml FEEDTUBE PRN PRN Hypoglycemia Simple Syrup 30 ml 05/29/21 08:45 Simple Syrup 15 Ml FEEDTUBE PRN PRN Hypoglycemia Sodium Bicarbonate 325 mg 05/29/21 08:45 Sodium Bicarbonate 325 Mg Tab FEEDTUBE PRN PRN For Clogged Feeding Tube Sodium Chloride 10 ml 05/23/21 22:00 06/04/21 09:35 Sodium Chloride 0.9% 10 Ml Flush Syringe IV 10 ml BID MARK Administration Sodium Chloride 10 ml 05/23/21 11:43 Sodium Chloride 0.9% 10 Ml Flush Syringe IV PRN PRN LINE FLUSH Sodium Chloride 10 ml 05/31/21 09:50 06/01/21 12:32 Sodium Chloride 0.9% 50 Ml Ivpb IV 10 ml PRN PRN Administration FLUSH Vitamin B Complex/Folic Acid 1 each 05/30/21 10:00 06/04/21 09:35 Folbee Plus Cz (Folic Acid/Vit Bcomp&C/Cu/Znox) PO 1 each QDAY MARK Administration Nutrition/Malnutrition Assess - Dietary Evaluation Nutrition/Malnutrition Findings: Nutrition Notes Start: 05/28/21 12:16 Freq: Status: Active Protocol: Document 05/31/21 15:28 GREGG (Rec: 05/31/21 15:51 GREGG [id number]) Nutrition Notes Initial or Follow up Brief Note Current Diet TF-Vital HP @ 70 ml/hr (since D 05/31). Height 6 ft Weight 102.058 kg [place] Body Weight (kg) 80.90 BMI 30.5 Weight change and time frame No body weight change in 2 days reported. Subjective/Other Information RD consult for routine F/u on TF tolerance. Pt extubated from mechanical ventilation, now on Bi-PaP+ tolerating well. TF continues as prescribed. Percent of energy/protein needs met: Prescribed Vital HP @ 70 ml/hr provides for energy/protein needs (1,655 Kcal/145 g) during LOS, 70% Kcal; 89% AA. #1 Nutrition Diagnosis Inadequate oral intake Diagnosis Progress(for reassessment Continues documentation) Is patient on ventilator? Yes Is Patient Ambulatory and/or Out of Bed No REE-([place]-confined to bed) 2364.912 Calculation Used for Recommendations 65-70% energy needs Additional Notes Energy needs: 4439-9729 kcal/ day Pro needs 2g/kg IBW: 162g/day Fluid needs 1ml/kcal Nutrition Intervention Nutrition Support: Continue Vital HP @ 70 ml/hr. Flush: 170 ml water Q 4 hr, or as per MD. Kcal 1,655 Protein (gm) 145 Carbohydrates (gm) 185 Fat (gm) 38 Fluid (mL) 1,384 Fiber (gm) 0 % RDI: 70% Kcal; 89% AA. Goal #1 Provide at least 75% of energy /protein needs through Enteral Feeding during LOS. Goal #2 Maintain body weight within +/ -3% of admission body weight during LOS. Follow-Up By: 06/07/21 Additional Comments Continue monitoring TF tolerance and BM.
[2021-05-31] MEDS ORDERED: SODIUM CHLORIDE 0.9% 500 ML 500 ML ONE (20:59)
[2021-05-31] MEDS: SENNOSIDES 8.6 MG TAB PO SCH (21:22)
[2021-05-31] MEDS: SODIUM CHLORIDE 0.9% 50 ML IVPB IV PRN (21:23)
[2021-05-31] MEDS ORDERED: FAMOTIDINE 20 MG TAB FEEDTUBE SCH (22:00)
[2021-06-01] MEDS: HALOPERIDOL LACTATE 5 MG/1 ML INJ IV PRN ×2 (02:26→09:27)
[2021-06-01] MEDS: FREE WATER PO SCH ×6 (02:26→21:08)
[2021-06-01] MEDS: LORazepam 2 MG/ML VIAL IV PRN ×2 (03:00→07:44)
[2021-06-01] MEDS ORDERED: FUROSEMIDE 40 MG/4 ML INJ ONE (03:06)
[2021-06-01 03:09] LABS: ABG Base Excess -0.3 mmol/L (-2.0-3.0); ABG HCO3 26.1 mmol/L (20.0-26.0); ABG Methemoglobin 0.5 % (0.0-1.5); ABG Oxygen Saturation 95.5 % (95.0-99.0); ABG PCO2 50.1 mm Hg; ABG PH 7.334 pH Units (7.350-7.450); ABG PO2 81.2 mm Hg (80.0-90.0)
[2021-06-01] MEDS ORDERED: FUROSEMIDE 40 MG/4 ML INJ IV ONE (03:11)
--- NOTE | 2021-06-01 03:39 | XRay Report ---
CHEST 1 VIEW 06/01/2021 2:16 AM INDICATION / CLINICAL INFORMATION: sob. COMPARISON: 05/28/2019 FINDINGS: SUPPORT DEVICES: None. HEART / MEDIASTINUM: No significant abnormality. LUNGS / PLEURA: Low opacity/infiltrate within the left No pneumothorax. Signer Name: Toribio Morales MD Signed: 06/01/2021 3:34 AM Workstation Name: [id number]
[2021-06-01 04:27] LABS: Hematocrit 38.4 % (35.5-45.6); Hemoglobin 12.3 gm/dl (11.8-15.2); Mean Corpuscular HGB Conc 32 % (32-34); Mean Corpuscular Volume 87 fl (84-94); Platelet Count 372 K/mm3 (140-440); Red Blood Count 4.41 M/mm3 (3.65-5.03)
[2021-06-01 04:43] LABS: BUN/Creatinine Ratio 16; Blood Urea Nitrogen 13 mg/dL (9-20); Hemolysis Index 2
--- NOTE | 2021-06-01 08:56 | Electrocardiograph Report ---
[facility] Test Date: 2021-05-31 Test Time: 08:13:13 Pat Name: MATTHEW LAWSON Department: Room: A261 1 Gender: M [employer] Clerk: TOMI : 1980 Requested By: RISSA DAHL Order Number: [id number] Reading MD: Rahat Salazar Measurements Intervals [place] Rate: 109 P: 86 ME: 185 QRS: 20 QRSD: 103 T: 87 QT: 337 QTc: 454 Interpretive Statements Sinus tachycardia Probable left atrial enlargement Left ventricular hypertrophy nonspecific st-t Compared to ECG 05/23/2021 11:46:41 Ventricular premature complex(es) no longer present Left anterior fascicular block no longer present T-wave abnormality no longer present Possible ischemia no longer present Electronically Signed On 06-01-2021 8:56:30 EST by Rahat Salazar
[2021-06-01] MEDS: METOPROLOL TARTRATE 25 MG TAB PO SCH ×2 (09:00→20:59)
[2021-06-01] MEDS: FAMOTIDINE 20 MG/2 ML INJ IV SCH (09:00)
[2021-06-01] MEDS: FOLBEE PLUS CZ (FOLIC ACID/VIT BCOMP&C/CU/ZNOX) PO SCH (09:00)
[2021-06-01] MEDS: ENOXAPARIN 40 MG/0.4 ML INJ SUB-Q SCH (09:00)
--- NOTE | 2021-06-01 09:46 | Progress Note ---
Assessment and Plan 40 y/o male with suspected overdose and metabolic acidosis 06/01/21: Reintubated today. Sedated. Spoke with mother over the phone. Given this is the third intubation in less than 10 days, will consult surgery for trach and peg. 05/31/21: Extubated and had some upper airway noise. RT gave racemic epi. Increased work of breathing but no desats so will try bipap therapy. If fails will be reintubated and trached. Keep NPO for now. Will need to change BB to IV while on bipap therapy. 05/28/21: Extubate again today once patient is more awake. Continue precedex to help with agitation. Will need swallow eval once extubated. Cards is seeing, await any new recs. spoke with them this morning and his cardiomyopathy and systolic heart failure are chronic with normal coronaries on a cath last year sometime in the [facility]. 05/27/21: Get patient to ICU as soon as possible to achieve adequate sedation and mental state control to insure successful extubation. AGree with Precedex 05/26/21: Attempt extubation today once all sedation is off. 05/25/21: follow up echo. Spoke with RT about ABG. States will be in system within the hour. Still pressors but on Precedex, Versed and Fent. needs to be COVID tested. BNP was >6k. Unable to diurese right now given pressor requirements but need to follow up echo. need to get patient upstairs as soon as possible. Spoke with charge nurse and they are working on this. 1. CXR shows cardiomegaly with some bibasilar changes. Could be fluid. Suggest swabbing for COVID. Check BNP and obtain 2D echo given heart size. 2. Minimal sedation to assess mental status 3. Wean pressors for MAPS >60 4. Follow up renal recs 5. No ABG prior to intubation. Echo should be a bubble study given degree of hypoxemia seen on ABG CCT 31 minutes. Subjective Date of service: 06/01/21 Principal diagnosis: Overdose Interval history: Electively intubated this am using glide scope. Visualization of cords but false vocal cords beefy and red. Likely inflammed from multiple intubations. Objective Vital Signs - 12hr 05/31/21 05/31/21 05/31/21 22:01 22:05 22:31 Temperature Pulse Rate 110 H 110 H 109 H Pulse Rate [ From Monitor] Respiratory 30 H 23 29 H Rate Blood Pressure 119/47 116/48 124/67 O2 Sat by Pulse 96 97 97 Oximetry 05/31/21 05/31/21 05/31/21 22:41 23:00 23:31 Temperature Pulse Rate 117 H 128 H 116 H Pulse Rate [ From Monitor] Respiratory 32 H 18 32 H Rate Blood Pressure 124/67 140/85 130/79 O2 Sat by Pulse 97 99 98 Oximetry 06/01/21 06/01/21 06/01/21 00:00 00:30 01:00 Temperature 99.7 F H Pulse Rate 120 H 114 H 121 H Pulse Rate [ 113 H From Monitor] Respiratory 22 32 H 36 H Rate Blood Pressure 127/82 118/60 96/69 O2 Sat by Pulse 99 98 97 Oximetry 06/01/21 06/01/21 06/01/21 01:30 02:00 02:31 Temperature Pulse Rate 114 H 124 H 136 H Pulse Rate [ From Monitor] Respiratory 34 H 29 H 43 H Rate Blood Pressure 108/61 121/78 130/83 O2 Sat by Pulse 98 100 98 Oximetry 06/01/21 06/01/21 06/01/21 03:01 03:22 03:30 Temperature Pulse Rate 136 H 125 H 120 H Pulse Rate [ From Monitor] Respiratory 47 H 35 H Rate Blood Pressure 156/102 152/102 O2 Sat by Pulse 97 96 Oximetry 06/01/21 06/01/21 06/01/21 03:47 04:00 04:01 Temperature 99.5 F Pulse Rate 130 H Pulse Rate [ 122 H From Monitor] Respiratory 28 H 19 Rate Blood Pressure 153/99 O2 Sat by Pulse 99 98 Oximetry 06/01/21 06/01/21 06/01/21 04:31 05:00 05:31 Temperature Pulse Rate 128 H 124 H 113 H Pulse Rate [ From Monitor] Respiratory 41 H 12 30 H Rate Blood Pressure 180/90 159/105 113/62 O2 Sat by Pulse 94 99 94 Oximetry 06/01/21 06/01/21 06/01/21 06:00 06:30 07:01 Temperature Pulse Rate 109 H 107 H 108 H Pulse Rate [ From Monitor] Respiratory 27 H 28 H 26 H Rate Blood Pressure 111/66 117/51 112/60 O2 Sat by Pulse 99 98 97 Oximetry 06/01/21 06/01/21 06/01/21 07:30 07:37 08:00 Temperature Pulse Rate 111 H 108 H Pulse Rate [ 108 H From Monitor] Respiratory 28 H 36 H Rate Blood Pressure 132/60 O2 Sat by Pulse 98 99 Oximetry 06/01/21 06/01/21 08:01 08:30 Temperature Pulse Rate 109 H 123 H Pulse Rate [ From Monitor] Respiratory 15 33 H Rate Blood Pressure 128/61 133/78 O2 Sat by Pulse 95 96 Oximetry Constitutional: other (Arousable to verbal stimulation) ENT: oropharynx moist, other (Orally intubated) Ascultation: Bilateral: rhonchi Cardiovascular: regular rate and rhythm (With episodes of tachycardia) Gastrointestinal: normoactive bowel sounds, soft, non-tender CBC and BMP: 06/02/21 07:41 06/02/21 07:41 ABG, PT/INR, D-dimer: ABG ABG pH 7.334 pH Units (7.350-7.450) L 06/01/21 02:55 POC ABG pCO2 41.6 mmHg (32.0-48.0) 05/24/21 03:44 ABG pCO2 50.1 mm Hg 06/01/21 02:55 POC ABG pO2 87.6 mmHg (83-108) 05/24/21 03:44 ABG pO2 81.2 mm Hg (80.0-90.0) 06/01/21 02:55 POC ABG HCO3 17.5 05/24/21 03:44 ABG O2 Saturation 95.5 % (95.0-99.0) 06/01/21 02:55 Abnormal lab findings: Abnormal Labs 05/23/21 05/23/21 05/23/21 05:55 09:38 09:38 WBC RBC 5.09 H Hgb Hct 46.2 H MCHC RDW Lymph % (Auto) [place] % (Auto) [place] # (Auto) Seg Neutrophils % Seg Neuts % (Manual) Lymphocytes % (Manual) Seg Neutrophils # Seg Neutrophils # Man Lymphocytes # (Manual) ABG pH 7.265 L ABG pO2 ABG HCO3 ABG O2 Saturation 94.6 L ABG Base Excess -4.5 L ABG Hemoglobin ABG Potassium ABG Glucose Oxyhemoglobin 92.3 L Sodium Potassium Chloride Carbon Dioxide 20 L BUN Creatinine Glucose 147 H POC Glucose Lactic Acid Calcium Phosphorus Magnesium Total Bilirubin Direct Bilirubin AST Total Creatine Kinase C-Reactive Protein NT-Pro-B Natriuret Pep Total Protein Albumin 3.6 L Arterial Blood Glucose Urine WBC (Auto) Salicylates Acetaminophen 05/23/21 05/23/21 05/23/21 09:38 09:38 09:38 WBC RBC Hgb Hct MCHC RDW Lymph % (Auto) [place] % (Auto) [place] # (Auto) Seg Neutrophils % Seg Neuts % (Manual) Lymphocytes % (Manual) Seg Neutrophils # Seg Neutrophils # Man Lymphocytes # (Manual) ABG pH ABG pO2 ABG HCO3 ABG O2 Saturation ABG Base Excess ABG Hemoglobin ABG Potassium ABG Glucose Oxyhemoglobin Sodium Potassium Chloride Carbon Dioxide BUN Creatinine Glucose POC Glucose Lactic Acid Calcium Phosphorus Magnesium Total Bilirubin Direct Bilirubin AST Total Creatine Kinase C-Reactive Protein NT-Pro-B Natriuret Pep 6058 H Total Protein Albumin Arterial Blood Glucose Urine WBC (Auto) Salicylates < 0.3 L Acetaminophen 5.0 L 05/23/21 05/23/21 05/24/21 12:49 Unknown 03:44 WBC RBC Hgb Hct MCHC RDW Lymph % (Auto) [place] % (Auto) [place] # (Auto) Seg Neutrophils % Seg Neuts % (Manual) Lymphocytes % (Manual) Seg Neutrophils # Seg Neutrophils # Man Lymphocytes # (Manual) ABG pH 7.208 L 7.241 L ABG pO2 52.2 L ABG HCO3 ABG O2 Saturation 93.5 L 83.7 L ABG Base Excess -6.7 L -3.7 L ABG Hemoglobin ABG Potassium 5.6 H ABG Glucose 53 L Oxyhemoglobin 91.1 L 81.1 L Sodium Potassium Chloride Carbon Dioxide BUN Creatinine Glucose POC Glucose Lactic Acid Calcium Phosphorus Magnesium Total Bilirubin Direct Bilirubin AST Total Creatine Kinase C-Reactive Protein NT-Pro-B Natriuret Pep Total Protein Albumin Arterial Blood Glucose 53 L Urine WBC (Auto) Salicylates Acetaminophen 05/24/21 05/24/21 05/24/21 05:14 05:14 09:35 WBC 23.3 H RBC 5.23 H Hgb Hct 47.3 H MCHC RDW 15.3 H Lymph % (Auto) [place] % (Auto) [place] # (Auto) Seg Neutrophils % Seg Neuts % (Manual) 12.0 L Lymphocytes % (Manual) 3.0 L Seg Neutrophils # Seg Neutrophils # Man Lymphocytes # (Manual) 0.7 L ABG pH ABG pO2 ABG HCO3 ABG O2 Saturation ABG Base Excess ABG Hemoglobin ABG Potassium ABG Glucose Oxyhemoglobin Sodium Potassium 6.3 H* D Chloride 107.3 H Carbon Dioxide 20 L BUN 33 H Creatinine 3.5 H D Glucose 56 L POC Glucose Lactic Acid Calcium Phosphorus Magnesium Total Bilirubin 1.90 H Direct Bilirubin AST Total Creatine Kinase 556 H C-Reactive Protein NT-Pro-B Natriuret Pep Total Protein 4.9 L D Albumin 2.8 L Arterial Blood Glucose Urine WBC (Auto) Salicylates Acetaminophen 05/24/21 05/24/21 05/25/21 19:45 Unknown 04:23 WBC 20.1 H RBC Hgb Hct MCHC 31 L RDW 15.5 H Lymph % (Auto) [place] % (Auto) [place] # (Auto) Seg Neutrophils % Seg Neuts % (Manual) 94.0 H Lymphocytes % (Manual) 5.0 L Seg Neutrophils # Seg Neutrophils # Man 18.9 H Lymphocytes # (Manual) 1.0 L ABG pH ABG pO2 ABG HCO3 ABG O2 Saturation ABG Base Excess ABG Hemoglobin ABG Potassium ABG Glucose Oxyhemoglobin Sodium Potassium 5.7 H Chloride 108.9 H Carbon Dioxide 21 L BUN 36 H Creatinine 2.6 H Glucose 108 H POC Glucose Lactic Acid Calcium Phosphorus Magnesium Total Bilirubin Direct Bilirubin AST Total Creatine Kinase C-Reactive Protein NT-Pro-B Natriuret Pep Total Protein Albumin Arterial Blood Glucose Urine WBC (Auto) 78.0 H Salicylates Acetaminophen 05/25/21 05/25/21 05/25/21 04:23 09:14 11:46 WBC RBC Hgb Hct MCHC RDW Lymph % (Auto) [place] % (Auto) [place] # (Auto) Seg Neutrophils % Seg Neuts % (Manual) Lymphocytes % (Manual) Seg Neutrophils # Seg Neutrophils # Man Lymphocytes # (Manual) ABG pH ABG pO2 ABG HCO3 ABG O2 Saturation ABG Base Excess ABG Hemoglobin ABG Potassium ABG Glucose Oxyhemoglobin Sodium Potassium Chloride 111.4 H Carbon Dioxide 18 L BUN 33 H Creatinine 1.9 H Glucose 121 H POC Glucose Lactic Acid 2.40 H* 2.60 H* Calcium Phosphorus Magnesium Total Bilirubin Direct Bilirubin AST Total Creatine Kinase C-Reactive Protein NT-Pro-B Natriuret Pep Total Protein Albumin Arterial Blood Glucose Urine WBC (Auto) Salicylates Acetaminophen 05/25/21 05/26/21 05/26/21 18:00 03:16 05:55 WBC 22.0 H RBC Hgb Hct MCHC RDW 15.3 H Lymph % (Auto) [place] % (Auto) [place] # (Auto) Seg Neutrophils % Seg Neuts % (Manual) 96.0 H Lymphocytes % (Manual) 2.0 L Seg Neutrophils # Seg Neutrophils # Man 21.1 H Lymphocytes # (Manual) 0.4 L ABG pH ABG pO2 208.2 H ABG HCO3 ABG O2 Saturation 99.3 H ABG Base Excess -2.7 L -2.6 L ABG Hemoglobin 13.7 L 13.0 L ABG Potassium ABG Glucose Oxyhemoglobin 94.8 L Sodium Potassium Chloride Carbon Dioxide BUN Creatinine Glucose POC Glucose Lactic Acid Calcium Phosphorus Magnesium Total Bilirubin Direct Bilirubin AST Total Creatine Kinase C-Reactive Protein NT-Pro-B Natriuret Pep Total Protein Albumin Arterial Blood Glucose Urine WBC (Auto) Salicylates Acetaminophen 05/26/21 05/27/21 05/27/21 05:55 03:18 03:18 WBC 21.5 H RBC Hgb Hct MCHC RDW 15.5 H Lymph % (Auto) [place] % (Auto) [place] # (Auto) Seg Neutrophils % Seg Neuts % (Manual) 92.0 H Lymphocytes % (Manual) 5.0 L Seg Neutrophils # Seg Neutrophils # Man 19.8 H Lymphocytes # (Manual) 1.1 L ABG pH ABG pO2 ABG HCO3 ABG O2 Saturation ABG Base Excess ABG Hemoglobin ABG Potassium ABG Glucose Oxyhemoglobin Sodium 148 H Potassium Chloride 111.3 H 113.8 H Carbon Dioxide 21 L 20 L BUN 23 H Creatinine Glucose 102 H 103 H POC Glucose Lactic Acid Calcium 8.3 L Phosphorus Magnesium Total Bilirubin 7.80 H Direct Bilirubin AST 112 H Total Creatine Kinase C-Reactive Protein NT-Pro-B Natriuret Pep Total Protein 5.2 L Albumin 2.9 L Arterial Blood Glucose Urine WBC (Auto) Salicylates Acetaminophen 05/27/21 05/28/21 05/28/21 03:18 05:55 10:05 WBC 11.4 H RBC Hgb Hct MCHC RDW 15.5 H Lymph % (Auto) 11.2 L [place] % (Auto) 8.6 H [place] # (Auto) 1.0 H Seg Neutrophils % 78.9 H Seg Neuts % (Manual) Lymphocytes % (Manual) Seg Neutrophils # 9.0 H Seg Neutrophils # Man Lymphocytes # (Manual) ABG pH ABG pO2 104.7 H ABG HCO3 ABG O2 Saturation ABG Base Excess -3.1 L ABG Hemoglobin 13.2 L ABG Potassium ABG Glucose Oxyhemoglobin Sodium Potassium Chloride Carbon Dioxide BUN Creatinine Glucose POC Glucose Lactic Acid Calcium Phosphorus Magnesium Total Bilirubin 7.90 H Direct Bilirubin 6.0 H AST 114 H Total Creatine Kinase C-Reactive Protein NT-Pro-B Natriuret Pep Total Protein 5.2 L Albumin 2.8 L Arterial Blood Glucose Urine WBC (Auto) Salicylates Acetaminophen 05/28/21 05/28/21 05/28/21 10:05 10:05 10:05 WBC RBC Hgb Hct MCHC RDW Lymph % (Auto) [place] % (Auto) [place] # (Auto) Seg Neutrophils % Seg Neuts % (Manual) Lymphocytes % (Manual) Seg Neutrophils # Seg Neutrophils # Man Lymphocytes # (Manual) ABG pH ABG pO2 ABG HCO3 ABG O2 Saturation ABG Base Excess ABG Hemoglobin ABG Potassium ABG Glucose Oxyhemoglobin Sodium 149 H Potassium Chloride 119.9 H Carbon Dioxide 18 L BUN Creatinine Glucose 103 H POC Glucose Lactic Acid 2.10 H* Calcium Phosphorus Magnesium Total Bilirubin Direct Bilirubin AST Total Creatine Kinase C-Reactive Protein 34.80 H NT-Pro-B Natriuret Pep Total Protein Albumin Arterial Blood Glucose Urine WBC (Auto) Salicylates Acetaminophen 05/29/21 05/29/21 05/29/21 03:00 05:02 05:02 WBC 13.0 H RBC Hgb Hct MCHC RDW 15.4 H Lymph % (Auto) [place] % (Auto) [place] # (Auto) Seg Neutrophils % Seg Neuts % (Manual) Lymphocytes % (Manual) Seg Neutrophils # Seg Neutrophils # Man Lymphocytes # (Manual) ABG pH ABG pO2 138.1 H ABG HCO3 ABG O2 Saturation ABG Base Excess -3.6 L ABG Hemoglobin 12.8 L ABG Potassium ABG Glucose Oxyhemoglobin Sodium 150 H Potassium Chloride 119.8 H Carbon Dioxide 18 L BUN Creatinine Glucose 109 H POC Glucose Lactic Acid Calcium Phosphorus 2.20 L Magnesium 1.50 L Total Bilirubin Direct Bilirubin AST Total Creatine Kinase C-Reactive Protein NT-Pro-B Natriuret Pep Total Protein Albumin Arterial Blood Glucose Urine WBC (Auto) Salicylates Acetaminophen 05/29/21 05/29/21 05/30/21 17:00 23:37 04:29 WBC RBC Hgb 10.8 L Hct 33.4 L MCHC RDW 15.7 H Lymph % (Auto) [place] % (Auto) [place] # (Auto) Seg Neutrophils % Seg Neuts % (Manual) Lymphocytes % (Manual) Seg Neutrophils # Seg Neutrophils # Man Lymphocytes # (Manual) ABG pH ABG pO2 ABG HCO3 ABG O2 Saturation ABG Base Excess ABG Hemoglobin ABG Potassium ABG Glucose Oxyhemoglobin Sodium Potassium Chloride Carbon Dioxide BUN Creatinine Glucose POC Glucose 114 H 122 H Lactic Acid Calcium Phosphorus Magnesium Total Bilirubin Direct Bilirubin AST Total Creatine Kinase C-Reactive Protein NT-Pro-B Natriuret Pep Total Protein Albumin Arterial Blood Glucose Urine WBC (Auto) Salicylates Acetaminophen 05/30/21 05/30/21 05/31/21 04:29 23:36 04:00 WBC 11.2 H RBC Hgb 10.9 L Hct 34.3 L MCHC RDW 15.4 H Lymph % (Auto) [place] % (Auto) [place] # (Auto) Seg Neutrophils % Seg Neuts % (Manual) Lymphocytes % (Manual) Seg Neutrophils # Seg Neutrophils # Man Lymphocytes # (Manual) ABG pH ABG pO2 ABG HCO3 ABG O2 Saturation ABG Base Excess ABG Hemoglobin ABG Potassium ABG Glucose Oxyhemoglobin Sodium Potassium 3.2 L Chloride 112.4 H Carbon Dioxide 21 L BUN Creatinine 0.7 L Glucose 128 H POC Glucose 120 H Lactic Acid Calcium Phosphorus Magnesium Total Bilirubin Direct Bilirubin AST Total Creatine Kinase C-Reactive Protein NT-Pro-B Natriuret Pep Total Protein Albumin Arterial Blood Glucose Urine WBC (Auto) Salicylates Acetaminophen 05/31/21 05/31/21 05/31/21 04:00 11:50 16:16 WBC RBC Hgb Hct MCHC RDW Lymph % (Auto) [place] % (Auto) [place] # (Auto) Seg Neutrophils % Seg Neuts % (Manual) Lymphocytes % (Manual) Seg Neutrophils # Seg Neutrophils # Man Lymphocytes # (Manual) ABG pH ABG pO2 ABG HCO3 ABG O2 Saturation ABG Base Excess ABG Hemoglobin ABG Potassium ABG Glucose Oxyhemoglobin Sodium 148 H Potassium Chloride 114.8 H Carbon Dioxide BUN Creatinine Glucose 151 H POC Glucose 123 H 107 H Lactic Acid Calcium Phosphorus Magnesium Total Bilirubin Direct Bilirubin AST Total Creatine Kinase C-Reactive Protein NT-Pro-B Natriuret Pep Total Protein Albumin Arterial Blood Glucose Urine WBC (Auto) Salicylates Acetaminophen 06/01/21 06/01/21 06/01/21 02:55 04:10 04:10 WBC 16.5 H RBC Hgb Hct MCHC RDW 16.0 H Lymph % (Auto) [place] % (Auto) [place] # (Auto) Seg Neutrophils % Seg Neuts % (Manual) Lymphocytes % (Manual) Seg Neutrophils # Seg Neutrophils # Man Lymphocytes # (Manual) ABG pH 7.334 L ABG pO2 ABG HCO3 26.1 H ABG O2 Saturation ABG Base Excess ABG Hemoglobin 12.6 L ABG Potassium ABG Glucose Oxyhemoglobin 93.1 L Sodium 148 H Potassium 3.4 L Chloride 108.8 H Carbon Dioxide BUN Creatinine Glucose 113 H POC Glucose Lactic Acid Calcium Phosphorus Magnesium Total Bilirubin Direct Bilirubin AST Total Creatine Kinase C-Reactive Protein NT-Pro-B Natriuret Pep Total Protein Albumin Arterial Blood Glucose Urine WBC (Auto) Salicylates Acetaminophen Allied health notes reviewed: nursing
[2021-06-01] MEDS ORDERED: METOPROLOL TARTRATE 5 MG/5 ML INJ IV SCH (10:00)
[2021-06-01] MEDS ORDERED: diphenhydrAMINE 50 MG/ML VIAL IV SCH (10:00)
--- NOTE | 2021-06-01 10:44 | Progress Note ---
Assessment and Plan Impression: * Nonoliguric cute kidney injury secondary to ATN * Acute hypoxic respiratory failure --COVID 19 negative * Acute encephalopathy * Hypernatremia * Hypotension * Drug overdose * Hyperkalemia * Hypernatremia Plan: * Renal function has improved - BRYNN resolved * Hypernatremia worsened - Na 148 - note free water flushes with tube feeds, may need to increase if hypernatremia not improving or start D5W * K repletion prn, note order * Continue close monitoring of renal function * Bipap/respiratory management per pulm * Pressors prn - maintain MAP>65 * Dose medications for renal function * Strict I/O * Avoid potential nephrotoxins Subjective Date of service: 06/01/21 Principal diagnosis: Overdose Interval history: Chart, vitals, labs reviewed. Extubated yesterday, on Bipap this AM Objective - Exam Narrative Exam: General appearance: well-developed, well-nourished, on Bipap EENT: other Bipap in place Respiratory: Present: Other (coarse BS) Cardiology: regular, S1S2 Gastrointestinal: no distended Integumentary: warm and dry - Vital Signs Vital signs: Vital Signs - 12hr 05/31/21 05/31/21 06/01/21 23:00 23:31 00:00 Temperature 99.7 F H Pulse Rate 128 H 116 H 120 H Pulse Rate [ 113 H From Monitor] Respiratory 18 32 H 22 Rate Blood Pressure 140/85 130/79 127/82 O2 Sat by Pulse 99 98 99 Oximetry 06/01/21 06/01/21 06/01/21 00:30 01:00 01:30 Temperature Pulse Rate 114 H 121 H 114 H Pulse Rate [ From Monitor] Respiratory 32 H 36 H 34 H Rate Blood Pressure 118/60 96/69 108/61 O2 Sat by Pulse 98 97 98 Oximetry 06/01/21 06/01/21 06/01/21 02:00 02:31 03:01 Temperature Pulse Rate 124 H 136 H 136 H Pulse Rate [ From Monitor] Respiratory 29 H 43 H 47 H Rate Blood Pressure 121/78 130/83 156/102 O2 Sat by Pulse 100 98 97 Oximetry 06/01/21 06/01/21 06/01/21 03:22 03:30 03:47 Temperature 99.5 F Pulse Rate 125 H 120 H Pulse Rate [ From Monitor] Respiratory 35 H Rate Blood Pressure 152/102 O2 Sat by Pulse 96 Oximetry 06/01/21 06/01/21 06/01/21 04:00 04:01 04:31 Temperature Pulse Rate 130 H 128 H Pulse Rate [ 122 H From Monitor] Respiratory 28 H 19 41 H Rate Blood Pressure 153/99 180/90 O2 Sat by Pulse 99 98 94 Oximetry 06/01/21 06/01/21 06/01/21 05:00 05:31 06:00 Temperature Pulse Rate 124 H 113 H 109 H Pulse Rate [ From Monitor] Respiratory 12 30 H 27 H Rate Blood Pressure 159/105 113/62 111/66 O2 Sat by Pulse 99 94 99 Oximetry 06/01/21 06/01/21 06/01/21 06:30 07:01 07:30 Temperature Pulse Rate 107 H 108 H 111 H Pulse Rate [ From Monitor] Respiratory 28 H 26 H 28 H Rate Blood Pressure 117/51 112/60 132/60 O2 Sat by Pulse 98 97 98 Oximetry 06/01/21 06/01/21 06/01/21 07:37 08:00 08:01 Temperature Pulse Rate 108 H 109 H Pulse Rate [ 108 H From Monitor] Respiratory 36 H 15 Rate Blood Pressure 128/61 O2 Sat by Pulse 99 95 Oximetry 06/01/21 06/01/21 06/01/21 08:30 08:31 09:01 Temperature Pulse Rate 123 H 119 H 123 H Pulse Rate [ From Monitor] Respiratory 33 H 33 H 26 H Rate Blood Pressure 133/78 139/79 133/78 O2 Sat by Pulse 96 97 Oximetry 06/01/21 06/01/21 06/01/21 09:31 10:01 10:04 Temperature Pulse Rate 127 H 139 H 137 H Pulse Rate [ From Monitor] Respiratory 47 H 46 H Rate Blood Pressure 137/74 146/80 146/80 O2 Sat by Pulse 94 92 Oximetry - Lab 06/01/21 04:10 06/01/21 04:10 Most recent lab results ABG pH 7.334 pH Units (7.350-7.450) L 06/01/21 02:55 ABG pCO2 50.1 mm Hg 06/01/21 02:55 ABG pO2 81.2 mm Hg (80.0-90.0) 06/01/21 02:55 ABG HCO3 26.1 mmol/L (20.0-26.0) H 01/25/22 02:55 ABG O2 Saturation 95.5 % (95.0-99.0) 06/01/21 02:55 Calcium 9.0 mg/dL (8.4-10.2) 06/01/21 04:10 Phosphorus 2.60 mg/dL (2.5-4.5) D 05/31/21 04:00 Magnesium 1.70 mg/dL (1.7-2.3) 05/31/21 04:00 Medications & Allergies - Medications Allergies/Adverse Reactions: Allergies No Known Allergies Allergy (Verified 05/26/21 10:09) Home Medications: Home Medications Medication Instructions Recorded Confirmed Last Taken Type Unobtainable 09/13/13 09/13/13 Unknown History Active Medications: Generic Name Dose Route Start Last Admin Trade Name Freq PRN Reason Stop Dose Admin Acetaminophen 650 mg 05/23/21 11:43 05/31/21 03:22 Acetaminophen 650 Mg Rect Supp OK 650 mg Q6H PRN Administration Pain MILD(1-3)/Fever >100.5/EPSTEIN Lipase/Protease/Amylase 1 each 05/29/21 08:45 Lipase 10,500/Protease 25,000/Amylase 43,750 (Units) Dr Mitchell FEEDTUBE PRN PRN For Clogged Feeding Tube Dextrose 0 ml 05/31/21 10:47 Dextrose 10% *Hypoglycemia IV PRN PRN Hypoglycemia Diphenhydramine HCl 50 mg 06/01/21 10:00 06/01/21 10:04 Diphenhydramine 50 Mg/Ml Vial IV 06/01/21 11:00 50 mg ONCE@1000 MARK Administration Enoxaparin Sodium 40 mg 05/28/21 15:00 06/01/21 09:00 Enoxaparin 40 Mg/0.4 Ml Inj SUB-Q 40 mg QDAY@1000 MARK Administration Famotidine 20 mg 05/31/21 22:00 06/01/21 09:00 Famotidine 20 Mg/2 Ml Inj IV 20 mg BID MARK Administration Haloperidol Lactate 5 mg 05/30/21 12:18 06/01/21 09:27 Haloperidol Lactate 5 Mg/1 Ml Inj IV 5 mg Q6H PRN Administration Agitation Hydromorphone HCl 0.5 mg 05/23/21 11:43 05/29/21 09:18 Hydromorphone 1 Mg/1 Ml Inj IV 0.5 mg Q24H PRN Administration Pain , Severe (7-10) Dexmedetomidine HCl 400 mcg/ 104 mls @ 5.307 mls/hr 05/24/21 05:00 06/01/21 09:55 Sodium Chloride IV 1.4 mcg/kg/hr TITRATE MARK 37.149 mls/hr Titration Protocol 0.2 MCG/KG/HR Potassium Chloride 20 meq in 100 mls @ 100 mls/hr 06/01/21 11:15 Kcl 20meq/100ml IV 06/01/21 13:14 Q1H MARK Lorazepam 2 mg 05/31/21 11:00 06/01/21 07:44 Lorazepam 2 Mg/Ml Vial IV 2 mg Q4H PRN Administration Agitation Metoprolol Tartrate 5 mg 06/01/21 10:00 06/01/21 10:04 Metoprolol Tartrate 5 Mg/5 Ml Inj IV 5 mg Q6HR MARK Administration Metoprolol Tartrate 5 mg 06/01/21 11:00 06/01/21 10:18 Metoprolol Tartrate 5 Mg/5 Ml Inj IV 06/01/21 11:01 Not Given ONCE ONE Morphine Sulfate 2 mg 05/23/21 11:43 Morphine 2 Mg/1 Ml Inj IV Q24H PRN Pain, Moderate (4-6) Ondansetron HCl 4 mg 05/23/21 11:43 Ondansetron 4 Mg/2 Ml Inj IV Q8H PRN Nausea And Vomiting Senna 17.2 mg 05/28/21 22:00 05/31/21 21:22 Sennosides 8.6 Mg Tab PO 17.2 mg QHS MARK Administration Simple Syrup 15 ml 05/29/21 08:45 Simple Syrup 15 Ml FEEDTUBE PRN PRN Hypoglycemia Simple Syrup 30 ml 05/29/21 08:45 Simple Syrup 15 Ml FEEDTUBE PRN PRN Hypoglycemia Sodium Bicarbonate 325 mg 05/29/21 08:45 Sodium Bicarbonate 325 Mg Tab FEEDTUBE PRN PRN For Clogged Feeding Tube Sodium Chloride 10 ml 05/23/21 22:00 06/01/21 09:00 Sodium Chloride 0.9% 10 Ml Flush Syringe IV Not Given BID MARK Sodium Chloride 10 ml 05/23/21 11:43 Sodium Chloride 0.9% 10 Ml Flush Syringe IV PRN PRN LINE FLUSH Sodium Chloride 10 ml 05/31/21 09:50 05/31/21 21:23 Sodium Chloride 0.9% 50 Ml Ivpb IV 10 ml PRN PRN Administration FLUSH Vitamin B Complex/Folic Acid 1 each 05/30/21 10:00 06/01/21 09:00 Folbee Plus Cz (Folic Acid/Vit Bcomp&C/Cu/Znox) PO Not Given QDAY MARK
[2021-06-01] MEDS ORDERED: SODIUM BICARB 8.4% 50 MEQ/50 ML SYRINGE IV SCH (10:50)
[2021-06-01] MEDS ORDERED: METOPROLOL TARTRATE 5 MG/5 ML INJ IV ONE (11:00)
[2021-06-01] MEDS ORDERED: fentaNYL 100 MCG/2 ML INJ ONE ×2 (11:45→12:20)
[2021-06-01] MEDS ORDERED: SUCCINYLCHOLINE CHLORIDE 200 MG/10 ML INJ MDV IV ONE (12:21)
[2021-06-01] MEDS ORDERED: fentaNYL 100 MCG/2 ML INJ IV ONE (12:21)
[2021-06-01] MEDS ORDERED: ETOMIDATE 20 MG/10 ML INJ IV ONE (12:21)
[2021-06-01] MEDS ORDERED: MIDAZOLAM 2 MG/2 ML INJ IV ONE (12:21)
[2021-06-01] MEDS ORDERED: fentaNYL 100 MCG/2 ML INJ IV PRN (12:29)
--- NOTE | 2021-06-01 12:29 | Procedure Note ---
Date of procedure: 06/01/21 Pre-op diagnosis: Tachypnea Post-op diagnosis: same Procedure: RSI for Intubation. Difficult intubation even with glide scope. False vocal cords very red and beefy. Vocal cords seen, Grade 1 once able to maneuver past vocal cords. Using Fent, Etomidate, Versed and Succ adequate sedation achieved. Good bilateral breath sounds and color change x6. Called mother to update her. Anesthesia: MAC Surgeon: SRINIVASA NEIL Estimated blood loss: none Pathology: none Condition: critical Disposition: ICU
[2021-06-01] MEDS ORDERED: MINERAL OIL/PETROLATUM, WHITE OPHTH OINT 3.5 GM OU PRN (12:30)
[2021-06-01] MEDS ORDERED: LIP THERAPY VASELINE TP PRN (12:30)
[2021-06-01] MEDS: SODIUM CHLORIDE 0.9% 50 ML IVPB IV PRN (12:32)
[2021-06-01] MEDS: fentaNYL DRIP Premix 2,000 MCG/100 ML BAG IV SCH ×3 (13:00→22:21)
--- NOTE | 2021-06-01 13:19 | Progress Note ---
Assessment and Plan Patient is a 40-year-old male with a past medical history of HFrEF (EF 15%) and methamphetamine dependence who was brought to the ED after being found unresponsive on 05/13/2021. Acute hypoxic respiratory failure-pulmonology following Drug overdose Acute on chronic HFrEF Sepsis Bilateral pneumonia BRYNN-Nephrology following Rhabdomyolysis Echo 05/25/2021-EF 20 to 25%. Severe global hypokinesis of left ventricle. Left ventricle is moderately dilated. Doppler flow suggests impaired LV relaxation. Moderate mitral regurgitation. No pericardial effusion Cardiac cath 08/04/2020-Angiographically normal coronary arteries. This is indicative of a nonischemic cardiomyopathy. Mildly elevated biventricular filling pressures with normal cardiac index TTE, complete 08/02/20:LVEF is 18%,Severe global LV hypokinesis. Normal LV diastolic function. LA mildly dilated. Moderate mitral regurgitation with an eccentric MR jet(s),No previous echocardiogram for comparison. Outpatient medications: Coreg 6.52 mg p.o. twice daily, Lasix 40 mg p.o. daily, lisinopril 5 mg p.o. daily Plan: Patient appears euvolemic on exam stop Lasix Will hold RAMYA and ARB as per nephro recs Agree with IV metoprolol due to patient's tachycardia. Once patient able to have p.o. meds will increase to metoprolol 50 mg p.o. twice daily Patient seen in conjunction with Dr. Salazar who agrees with this plan of care - Patient Problems (1) Acute on chronic HFrEF (heart failure with reduced ejection fraction) Current Visit: Yes Status: Acute (2) PNA (pneumonia) Current Visit: Yes Status: Acute (3) Acute encephalopathy Current Visit: Yes Status: Acute (4) Acute respiratory failure Current Visit: Yes Status: Acute Qualifiers: Respiratory failure complication: hypoxia Qualified Code(s): J96.01 - Acute respiratory failure with hypoxia (5) Overdose by ingestion Current Visit: Yes Status: Acute Subjective Date of service: 06/01/21 Principal diagnosis: Overdose Interval history: Patient remains intubated and sedated. Patient to be extubated and attempt BiPAP therapy today Sinus tach 130s [id number] Objective Vital Signs Temp Pulse Pulse Resp BP Pulse Ox 06/01/21 12:23 96 06/01/21 11:00 105 H 42 H 103/58 92 06/01/21 10:30 115 H 35 H 126/81 92 06/01/21 10:04 137 H 146/80 06/01/21 10:01 139 H 46 H 146/80 92 06/01/21 09:31 127 H 47 H 137/74 94 06/01/21 09:01 123 H 26 H 133/78 97 06/01/21 08:31 119 H 33 H 139/79 06/01/21 08:30 123 H 33 H 133/78 96 06/01/21 08:01 109 H 15 128/61 95 06/01/21 08:00 108 H 36 H 99 06/01/21 07:37 108 H 06/01/21 07:30 111 H 28 H 132/60 98 06/01/21 07:01 108 H 26 H 112/60 97 06/01/21 06:30 107 H 28 H 117/51 98 06/01/21 06:00 109 H 27 H 111/66 99 06/01/21 05:31 113 H 30 H 113/62 94 06/01/21 05:00 124 H 12 159/105 99 06/01/21 04:31 128 H 41 H 180/90 94 06/01/21 04:01 130 H 19 153/99 98 06/01/21 04:00 122 H 28 H 99 06/01/21 03:47 99.5 F 06/01/21 03:30 120 H 35 H 152/102 96 06/01/21 03:22 125 H 06/01/21 03:01 136 H 47 H 156/102 97 06/01/21 02:31 136 H 43 H 130/83 98 06/01/21 02:00 124 H 29 H 121/78 100 06/01/21 01:30 114 H 34 H 108/61 98 06/01/21 01:00 121 H 36 H 96/69 97 06/01/21 00:30 114 H 32 H 118/60 98 06/01/21 00:00 99.7 F H 120 H 113 H 22 127/82 99 05/31/21 23:31 116 H 32 H 130/79 98 05/31/21 23:00 128 H 18 140/85 99 05/31/21 22:41 117 H 32 H 124/67 97 05/31/21 22:31 109 H 29 H 124/67 97 05/31/21 22:05 110 H 23 116/48 97 05/31/21 22:01 110 H 30 H 119/47 96 05/31/21 21:31 115 H 20 136/77 100 05/31/21 21:01 116 H 13 133/72 97 05/31/21 20:30 115 H 28 H 122/77 100 05/31/21 20:00 99.1 F 109 H 110 H 27 H 109/62 96 05/31/21 19:30 104 H 21 116/65 99 05/31/21 19:27 100 H 19 99/60 97 05/31/21 19:00 108 H 15 113/67 97 05/31/21 18:30 96 H 26 H 101/63 93 05/31/21 18:00 100 H 18 105/70 94 05/31/21 17:49 99.3 F 05/31/21 17:30 88 26 H 100/60 99 05/31/21 17:00 85 24 102/64 97 05/31/21 16:30 82 26 H 93/50 96 05/31/21 16:00 79 81 25 H 87/47 96 05/31/21 15:59 81 05/31/21 15:30 95 H 22 96/66 100 05/31/21 15:26 83 27 H 84/59 97 05/31/21 15:00 92 H 18 93/51 99 05/31/21 14:30 91 H 25 H 105/62 95 05/31/21 14:00 87 27 H 109/62 94 05/31/21 13:30 89 23 118/75 98 - Physical Examination General: Other (intubated/sedated) HEENT: Positive: Normocephaly Neck: Positive: neck supple, trachea midline. Negative: JVD/HJR Cardiac: Positive: Regular Rhythm, Tachycardia Lungs: Positive: Ventilated Respirations Neuro: Positive: Other (agitated) Abdomen: Positive: Soft Skin: Negative: Rash Extremities: Present: warm. Absent: edema - Labs and Meds CBC 06/01/21 Range/Units 04:10 WBC 16.5 H (4.5-11.0) K/mm3 RBC 4.41 (3.65-5.03) M/mm3 Hgb 12.3 (11.8-15.2) gm/dl Hct 38.4 (35.5-45.6) % Plt Count 372 (140-440) K/mm3 Comprehensive Metabolic Panel 06/01/21 Range/Units 04:10 Sodium 148 H (137-145) mmol/L Potassium 3.4 L (3.6-5.0) mmol/L Chloride 108.8 H (98-107) mmol/L Carbon Dioxide 26 (22-30) mmol/L BUN 13 (9-20) mg/dL Creatinine 0.8 (0.8-1.3) mg/dL Glucose 113 H (75-100) mg/dL Calcium 9.0 (8.4-10.2) mg/dL - Imaging and Cardiology EKG: report reviewed, image reviewed Echo: report reviewed Cardiac cath: report reviewed - EKG Sinus rhythms and dysrhythmias: sinus tachycardia Ventricular dysrhythmias: ventricular premature com Repolarization changes or abnormalities: nonspecific abnormality, ST segment, and/or T wave - Allied health notes Allied health notes reviewed: nursing
[2021-06-01] MEDS: POTASSIUM CHLORIDE 20 MEQ 20 MEQ/100 ML BAG IV SCH ×2 (13:20→14:19)
--- NOTE | 2021-06-01 13:46 | XRay Report ---
CHEST 1 VIEW 06/01/2021 12:36 PM INDICATION / CLINICAL INFORMATION: ETT Placement. COMPARISON: Exam done earlier today FINDINGS: SUPPORT DEVICES: Endotracheal tube tip is about 4 cm above the erica. HEART / MEDIASTINUM: Stable. LUNGS / PLEURA: Stable patchy bibasilar opacities. No pneumothorax. ADDITIONAL FINDINGS: No significant additional findings. IMPRESSION: 1. Endotracheal tube in expected position. Signer Name: Arash Monteiro MD Signed: 06/01/2021 1:41 PM Workstation Name: [email or web address]
--- NOTE | 2021-06-01 15:35 | XRay Report ---
ABDOMEN 1 VIEW 06/01/2021 INDICATION / CLINICAL INFORMATION: NG placement. COMPARISON: 05/28/2021 FINDINGS: TUBES / LINES: There is an enteric tube which terminates within the stomach with the side-port within the stomach as well BOWEL GAS PATTERN: No significant abnormality. FREE AIR / EXTRALUMINAL GAS: None seen. ADDITIONAL FINDINGS: No significant additional findings. IMPRESSION: 1. Enteric tube terminates within the stomach with the side-port within the stomach as well Signer Name: Julio Cesar Banks DO Signed: 06/01/2021 3:31 PM Workstation Name: [id number]
[2021-06-01 16:17] LABS: ABG HCO3 29.6 mmol/L (20.0-26.0); ABG PCO2 45.9 mm Hg; ABG PH 7.427 pH Units (7.350-7.450); ABG PO2 114.5 mm Hg (80.0-90.0)
[2021-06-01 16:18] LABS: ABG Base Excess 4.5 mmol/L (-2.0-3.0); ABG Methemoglobin 0.5 % (0.0-1.5); ABG Oxygen Saturation 98.1 % (95.0-99.0)
--- NOTE | 2021-06-01 18:01 | Progress Note ---
<NAUN RASHID - Last Filed: 06/01/21 17:55> Assessment and Plan Assessment and plan: This is a 40-year-old male with HFrEF, methamphetamine and nicotine dependence admitted for drug overdose and acute metabolic encephalopathy. Patient was intubated in the emergency department for airway protection. Assessment and Plan Acute toxic metabolic encephalopathy, overdose, h/o polysubstance abuse -UDS positive for amphetamines -Sedated with Precedex and fentanyl drips -As needed Ativan and Haldol -Maintain sleep-wake cycle -Reorientation as needed -Consider mental evaluation to assess for readiness to stop polysubstance abuse Acute hypoxic respiratory failure -Intubated on 05/23 in the ED for airway protection with 7.50 ETT at 24 at the lips and extubated 05/31 -Patient reintubated on 06/01 due to tachypnea and increased work of breathing with 7.50 ETT at 24 the lips -Vent settings: AC rate 20, tidal volume 350, FiO2 50, PEEP 8 -See RT notes for titration -Pulmonary hygiene -SPO2 monitoring Acute kidney injury secondary to acute tubular necrosis (resolved), hypernatremia, hypokalemia -BUN/creatinine increased to 3.5/33 -Nephrology consulted, appreciate recommendations -Strict intake and output -Maintain Fajardo catheter -Avoid nephrotoxic medications -Renally dose medications -Trend BMP -Free water flush -Replete potassium Sepsis (POA), lactic acidosis, leukocytosis -Presented with febrile illness, lactic acidosis, leukocytosis now with hypotension -COVID-19 PCR negative -UA negative -Blood culture/urine culture no growth to date -Tracheal aspirate with beta-hemolytic strep group F -S/p ABX for 3 days -S/p vasopressor support -Monitor fever and WBC curve HFrEF, cardiomegaly - Cardiology on consult, appreciated recommendations -Per cardiology -05/25/2021: Echo- EF 20 to 25%. Severe global hypokinesis of left ventricle. Left ventricle is moderately dilated. Doppler flow suggests impaired LV relaxation. Moderate mitral regurgitation. No pericardial effusion -08/04/2020: Cardiac cath- Angiographically normal coronary arteries. This is indicative of a nonischemic cardiomyopathy. Mildly elevated biventricular filling pressures with normal cardiac index -08/02/2020: Echo- EF 18%,Severe global LV hypokinesis. Normal LV diastolic function. LA mildly dilated. Moderate mitral regurgitation with an eccentric MR jet(s),No previous echocardiogram for comparison. -IV Lasix -Discontinued due to euvolemia DVT/GI prophylaxis -Lovenox subcu, PPI -SCD to bilateral lower extremities while in bed -Trend CBC -Transfuse for hemoglobin less than seven The high probability of a clinically significant, sudden or life threatening deterioration of the [multiple] system(s) required my full and direct attention, intervention and personal management. The aggregate critical care time was [60] minutes. This time is in addition to time spent performing reported procedures but includes the following: [x] Data Review and interpretation [x] Patient assessment and monitoring of vital signs [x] Documentation [x] Medication orders and management Disposition Plan: ICU Total Time Spent with Patient (Minutes): 60 Disposition Plan: ICU Total Time Spent with Patient (Minutes): 60 History Interval history: This is a 40-year-old male with methamphetamine and nicotine dependence who presented to the emergency department via EMS was called after the being found down and unresponsive by family. Per family patient "overdose on GHB." EMS administered intranasal Narcan without improvement in symptoms and transferred the patient to [facility] for further evaluation. Patient was intubated in the emergency department for airway protection. Patient was admitted to the hospital service with acute encephalopathy, hypothermia, respiratory failure with consults to CCM. Hospital Course to date: 05/25/2021: Worsening interstitial infiltrates. unclear if this is a developing pneumonia from aspiration/volume overload. Empiric abx coverage. ECHO with erik ble study ordered. Placed on iv abx. kidney function improving. 05/26/2021: Tachycardic on levo gtt, advised RN to titrate down as long as MAP > 65. HR improved on my follow up encounter. PCCM titrating vent down. Renal function improving....Cr now 1.3. No indication for SUPPLY CHAIN ANALYST at this time per nephro. 05/27/2021: Extubated yesterday however in respiratory distress, re-intubated. Patient has severe systolic heart failure. Cardiology consulted for severe systolic heart failure. Will need to discuss optimal strategy regarding diuresis. 05/28: Patient remains on the vent. Febrile overnight, no longer on IV abx, leukocytosis improved, will panculture patient for now hold off on IV Abx. D/W CCM plan to wean sedation, depends on patient's mental status possible extubation today. Patient with low EF 20 to 25%, IVF D/nickolas. FWF for hypernatrenia, repeat lab in the am. 05/29- With increased agitation and tachycardia, maxed out on precedex and fentanyl gtt. Patient appears to be in withdrawal, Ativan added. Remains febrile, off pressors this am, leukocytosis improved. Continue to f/u on culture data. Hypernatremia this am, on D5w per nephro, electrolyte repleted, repeat labs in the am 05/30: Patient very aggresive this am maxed on sedation, X1 dose of Geodeon ordered. Now on low dose Levophed, patient still with low grade fevers this am. Hypotension is probably r/t sedation. Recent cultures with NGTD, UA negative. Continue to monitor for now. Na improved, IVF off this and K repleted, repeat labs in the am. 05/31: Patient was extubated today, IV fluid discontinued, given Lasix per cardiology, increasing free water flush. Weaned off Levophed. Patient noted to be lethargic several hours post Precedex infusion discontinuation. Patient extubated to BiPAP after given racemic epinephrine. Patient remains lethargic and off of BiPAP will consider CT head in the a.m. 06/01: Patient remained on BiPAP overnight, given agitation as needed Haldol/Ativan and Benadryl given while patient remained maxed on Precedex. Given increased work of breathing and tachypnea patient was electively rein tubated. Free water flushes/tube feeding/p.o. medications to restart upon confirmation of DHT. Lasix stopped per cardiology recommendations. CT head ordered. Hospitalist Physical - Constitutional Vitals: Temp Pulse Resp BP Pulse Ox 98.8 F 77 28 H 92/46 98 06/01/21 16:00 06/01/21 16:48 06/01/21 15:42 06/01/21 16:48 06/01/21 16:48 General appearance: Present: mild distress, obese, other (Intubated and sedated) - EENT Eyes: Present: PERRL, EOM intact ENT: clear oral mucosa - Neck Neck: Present: normal ROM - Respiratory Respiratory effort: normal Respiratory: bilateral: diminished - Cardiovascular Rhythm: regular Heart Sounds: Present: S1 & S2. Absent: systolic murmur, diastolic murmur - Extremities Extremities: no ischemia, pulses intact, pulses symmetrical, No edema, normal temperature, normal color Peripheral Pulses: within normal limits - Abdominal General gastrointestinal: soft, non-tender, non-distended, normal bowel sounds - Integumentary Integumentary: Present: clear, warm, dry - Psychiatric Psychiatric: cooperative - Neurologic Neurologic: CNII-XII intact, focal deficits - Allied Health Allied health notes reviewed: nursing, RT, social work HEART Score - HEART Score Troponin: Troponin T < 0.010 ng/mL (0.00-0.029) 05/23/21 09:38 Results - Labs CBC & Chem 7: 06/01/21 04:10 06/01/21 04:10 Labs: Laboratory Last Values WBC 16.5 K/mm3 (4.5-11.0) H 06/01/21 04:10 RBC 4.41 M/mm3 (3.65-5.03) 06/01/21 04:10 Hgb 12.3 gm/dl (11.8-15.2) 06/01/21 04:10 Hct 38.4 % (35.5-45.6) 06/01/21 04:10 MCV 87 fl (84-94) 06/01/21 04:10 MCH 28 pg (28-32) 06/01/21 04:10 MCHC 32 % (32-34) 06/01/21 04:10 RDW 16.0 % (13.2-15.2) H 06/01/21 04:10 Plt Count 372 K/mm3 (140-440) 06/01/21 04:10 Lymph % (Auto) 11.2 % (13.4-35.0) L 05/28/21 10:05 Price % (Auto) 8.6 % (0.0-7.3) H 05/28/21 10:05 Eos % (Auto) 0.8 % (0.0-4.3) 05/28/21 10:05 Baso % (Auto) 0.5 % (0.0-1.8) 05/28/21 10:05 Lymph # (Auto) 1.3 K/mm3 (1.2-5.4) 05/28/21 10:05 Price # (Auto) 1.0 K/mm3 (0.0-0.8) H 05/28/21 10:05 Eos # (Auto) 0.1 K/mm3 (0.0-0.4) 05/28/21 10:05 Baso # (Auto) 0.1 K/mm3 (0.0-0.1) 05/28/21 10:05 Add Manual Diff Complete 05/27/21 03:18 Total Counted 100 05/27/21 03:18 Seg Neutrophils % 78.9 % (40.0-70.0) H 05/28/21 10:05 Seg Neuts % (Manual) 92.0 % (40.0-70.0) H 05/27/21 03:18 Band Neutrophils % 0 % 05/27/21 03:18 Lymphocytes % (Manual) 5.0 % (13.4-35.0) L 05/27/21 03:18 Reactive Lymphs % (Man) 0 % 05/27/21 03:18 Monocytes % (Manual) 3.0 % (0.0-7.3) 05/27/21 03:18 Eosinophils % (Manual) 0 % (0.0-4.3) 05/27/21 03:18 Basophils % (Manual) 0 % (0.0-1.8) 05/27/21 03:18 Metamyelocytes % 0 % 05/27/21 03:18 Myelocytes % 0 % 05/27/21 03:18 Promyelocytes % 0 % 05/27/21 03:18 Blast Cells % 0 % 05/27/21 03:18 Nucleated RBC % Not Reportable 05/27/21 03:18 Seg Neutrophils # 9.0 K/mm3 (1.8-7.7) H 05/28/21 10:05 Seg Neutrophils # Man 19.8 K/mm3 (1.8-7.7) H 05/27/21 03:18 Band Neutrophils # 0.0 K/mm3 05/27/21 03:18 Lymphocytes # (Manual) 1.1 K/mm3 (1.2-5.4) L 05/27/21 03:18 Abs React Lymphs (Man) 0.0 K/mm3 05/27/21 03:18 Monocytes # (Manual) 0.6 K/mm3 (0.0-0.8) 05/27/21 03:18 Eosinophils # (Manual) 0.0 K/mm3 (0.0-0.4) 05/27/21 03:18 Basophils # (Manual) 0.0 K/mm3 (0.0-0.1) 05/27/21 03:18 Metamyelocytes # 0.0 K/mm3 05/27/21 03:18 Myelocytes # 0.0 K/mm3 05/27/21 03:18 Promyelocytes # 0.0 K/mm3 05/27/21 03:18 Blast Cells # 0.0 K/mm3 05/27/21 03:18 WBC Morphology Not Reportable 05/27/21 03:18 Hypersegmented Neuts Not Reportable 05/27/21 03:18 Hyposegmented Neuts Not Reportable 05/27/21 03:18 Hypogranular Neuts Not Reportable 05/27/21 03:18 Smudge Cells Not Reportable 05/27/21 03:18 Toxic Granulation Not Reportable 05/27/21 03:18 Toxic Vacuolation Not Reportable 05/27/21 03:18 Dohle Bodies Not Reportable 05/27/21 03:18 Pelger-Huet Anomaly Not Reportable 05/27/21 03:18 Glenn Rods Not Reportable 05/27/21 03:18 Platelet Estimate Consistent w auto 05/27/21 03:18 Clumped Platelets Not Reportable 05/27/21 03:18 Plt Clumps, EDTA Not Reportable 05/27/21 03:18 Large Platelets Not Reportable 05/27/21 03:18 Giant Platelets Not Reportable 05/27/21 03:18 Platelet Satelliting Not Reportable 05/27/21 03:18 Plt Morphology Comment Not Reportable 05/27/21 03:18 RBC Morphology Normal 05/27/21 03:18 Dimorphic RBCs Not Reportable 05/27/21 03:18 Polychromasia Not Reportable 05/27/21 03:18 Hypochromasia Not Reportable 05/27/21 03:18 Poikilocytosis Not Reportable 05/27/21 03:18 Anisocytosis Not Reportable 05/27/21 03:18 Microcytosis Not Reportable 05/27/21 03:18 Macrocytosis Not Reportable 05/27/21 03:18 Spherocytes Not Reportable 05/27/21 03:18 Pappenheimer Bodies Not Reportable 05/27/21 03:18 Sickle Cells Not Reportable 05/27/21 03:18 Target Cells Not Reportable 05/27/21 03:18 Tear Drop Cells Not Reportable 05/27/21 03:18 Ovalocytes Not Reportable 05/27/21 03:18 Helmet Cells Not Reportable 05/27/21 03:18 Maravilla-Virgil Bodies Not Reportable 05/27/21 03:18 Dowell Rings Not Reportable 05/27/21 03:18 [place] Cells Not Reportable 05/27/21 03:18 Bite Cells Not Reportable 05/27/21 03:18 Crenated Cell Not Reportable 05/27/21 03:18 Elliptocytes Not Reportable 05/27/21 03:18 Acanthocytes (Spur) Not Reportable 05/27/21 03:18 Rouleaux Not Reportable 05/27/21 03:18 Hemoglobin C Crystals Not Reportable 05/27/21 03:18 Schistocytes Not Reportable 05/27/21 03:18 Malaria parasites Not Reportable 05/27/21 03:18 Frandy Bodies Not Reportable 05/27/21 03:18 Hem Pathologist Commnt No 05/27/21 03:18 ABG pH 7.427 pH Units (7.350-7.450) 06/01/21 15:30 POC ABG pCO2 41.6 mmHg (32.0-48.0) 05/24/21 03:44 ABG pCO2 45.9 mm Hg 06/01/21 15:30 POC ABG pO2 87.6 mmHg (83-108) 05/24/21 03:44 ABG pO2 114.5 mm Hg (80.0-90.0) H 06/01/21 15:30 POC ABG HCO3 17.5 05/24/21 03:44 ABG HCO3 29.6 mmol/L (20.0-26.0) H 06/01/21 15:30 ABG O2 Saturation 98.1 % (95.0-99.0) 06/01/21 15:30 ABG O2 Content 16.5 (0.0-44) 06/01/21 02:55 POC ABG Base Excess -9.5 05/24/21 03:44 ABG Base Excess 4.5 mmol/L (-2.0-3.0) H 06/01/21 15:30 ABG Hemoglobin 11.8 gm/dl (14.0-18.0) L 06/01/21 15:30 ABG Oxyhemoglobin 94.8 (94-98) 05/24/21 03:44 ABG Carboxyhemoglobin 1.9 % (0.0-5.0) 06/01/21 15:30 ABG Methemoglobin 0.5 % (0.0-1.5) 06/01/21 15:30 ABG Sodium 137.9 mmol/L (136.0-145.0) 05/24/21 03:44 ABG Potassium 5.6 mmol/L (3.40-4.50) H 05/24/21 03:44 ABG Chloride 105.0 mmol/L (98-107) 05/24/21 03:44 ABG Glucose 53 mg/dL (65-95) L 05/24/21 03:44 Oxyhemoglobin 95.8 % (95.0-99.0) 06/01/21 15:30 Carboxyhemoglobin 0.8 (0.5-1.5) 05/24/21 03:44 FiO2 0.50 % 06/01/21 15:30 FiO2 % 100.0 05/24/21 03:44 Sodium 148 mmol/L (137-145) H 06/01/21 04:10 Potassium 3.4 mmol/L (3.6-5.0) L 06/01/21 04:10 Chloride 108.8 mmol/L (98-107) H 06/01/21 04:10 Carbon Dioxide 26 mmol/L (22-30) 06/01/21 04:10 Anion Gap 17 mmol/L 06/01/21 04:10 BUN 13 mg/dL (9-20) 06/01/21 04:10 Creatinine 0.8 mg/dL (0.8-1.3) 06/01/21 04:10 Estimated GFR > 60 ml/min 06/01/21 04:10 BUN/Creatinine Ratio 16 % 06/01/21 04:10 Glucose 113 mg/dL (75-100) H 06/01/21 04:10 POC Glucose 119 mg/dL (70-105) H 06/01/21 12:46 Lactic Acid 2.10 mmol/L (0.7-2.0) H* 05/28/21 10:05 Calcium 9.0 mg/dL (8.4-10.2) 06/01/21 04:10 Phosphorus 2.60 mg/dL (2.5-4.5) D 05/31/21 04:00 Magnesium 1.70 mg/dL (1.7-2.3) 05/31/21 04:00 Total Bilirubin 7.80 mg/dL (0.1-1.2) H 05/27/21 03:18 Total Bilirubin 7.90 mg/dL (0.1-1.2) H 05/27/21 03:18 Direct Bilirubin 6.0 mg/dL (0-0.2) H 05/27/21 03:18 Indirect Bilirubin 1.9 mg/dL 05/27/21 03:18 AST 112 units/L (5-40) H 05/27/21 03:18 AST 114 units/L (5-40) H 05/27/21 03:18 ALT 38 units/L (7-56) 05/27/21 03:18 ALT 38 units/L (7-56) 05/27/21 03:18 Alkaline Phosphatase 111 units/L (35-129) 05/27/21 03:18 Alkaline Phosphatase 126 units/L (35-129) 05/27/21 03:18 Total Creatine Kinase 556 units/L (55-170) H 05/24/21 09:35 Troponin T < 0.010 ng/mL (0.00-0.029) 05/23/21 09:38 C-Reactive Protein 34.80 mg/dL (0.00-1.30) H 05/28/21 10:05 NT-Pro-B Natriuret Pep 6058 pg/mL (0-450) H 05/23/21 09:38 Total Protein 5.2 g/dL (6.3-8.2) L 05/27/21 03:18 Total Protein 5.2 g/dL (6.3-8.2) L 05/27/21 03:18 Albumin 2.8 g/dL (3.9-5) L 05/27/21 03:18 Albumin 2.9 g/dL (3.9-5) L 05/27/21 03:18 Albumin/Globulin Ratio 1.2 % 05/27/21 03:18 Albumin/Globulin Ratio 1.3 % 05/27/21 03:18 Procalcitonin 12.51 ng/mL (<0.15) 05/28/21 10:05 Arterial Blood Glucose 53 mg/dL (65-95) L 05/24/21 03:44 Arterial Blood Ionized Calcium 4.6 mg/dL (4.6-5.3) 05/24/21 03:44 Urine Color Sherri (Yellow) 05/28/21 12:20 Urine Turbidity Clear (Clear) 05/28/21 12:20 Urine pH 6.0 (5.0-7.0) 05/28/21 12:20 Ur Specific [place] 1.017 (1.003-1.030) 05/28/21 12:20 Urine Protein 30 mg/dl mg/dL (Negative) 05/28/21 12:20 Urine Glucose (UA) Neg mg/dL (Negative) 05/28/21 12:20 Urine Ketones Neg mg/dL (Negative) 05/28/21 12:20 Urine Blood Mod (Negative) 05/28/21 12:20 Urine Nitrite Neg (Negative) 05/28/21 12:20 Urine Bilirubin Mod (Negative) 05/28/21 12:20 Urine Ictotest Positive (Negative) 05/28/21 12:20 Urine Urobilinogen 4.0 mg/dL (<2.0) 05/28/21 12:20 Ur Leukocyte Esterase Neg (Negative) 05/28/21 12:20 Urine WBC (Auto) 3.0 /HPF (0.0-6.0) 05/28/21 12:20 Urine RBC (Auto) 4.0 /HPF (0.0-6.0) 05/28/21 12:20 U Epithel Cells (Auto) < 1.0 /HPF (0-13.0) 05/28/21 12:20 Urine Bacteria (Auto) 1+ /HPF (Negative) 05/28/21 12:20 Urine Mucus Few /HPF 05/28/21 12:20 Urine Yeast (Budding) 1+ /HPF 05/24/21 Unknown Salicylates < 0.3 mg/dL (2.8-20.0) L 05/23/21 09:38 Urine Opiates Screen Negative 05/23/21 09:41 Urine Methadone Screen Negative 05/23/21 09:41 Acetaminophen 5.0 ug/mL (10.0-30.0) L 05/23/21 09:38 Ur Barbiturates Screen Negative 05/23/21 09:41 Ur Phencyclidine Scrn Negative 05/23/21 09:41 Ur Amphetamines Screen Positive 05/23/21 09:41 U Benzodiazepines Scrn Negative 05/23/21 09:41 Urine Cocaine Screen Negative 05/23/21 09:41 U Marijuana (THC) Screen Negative 05/23/21 09:41 Drugs of Abuse Note Disclamer 05/23/21 09:41 Coronavirus (PCR) Negative (Negative) 05/26/21 08:14 Hepatitis A IgM Ab Non-reactive (NonReactive) 05/27/21 16:00 Hep Bs Antigen Non-reactive (Negative) 05/27/21 16:00 Hep B Core IgM Ab Non-reactive (NonReactive) 05/27/21 16:00 Hepatitis C Antibody Non-reactive (NonReactive) 05/27/21 16:00 Microbiology: Microbiology 05/28/21 10:05 Peripheral/Venous Blood Culture - Preliminary NO GROWTH AFTER 4 DAYS 05/28/21 10:05 Peripheral/Venous Blood Culture - Preliminary NO GROWTH AFTER 4 DAYS Fajardo/IV: Voiding Method Indwelling Catheter Active Medications - Current Medications Current Medications: Generic Name Dose Route Start Last Admin Trade Name Freq PRN Reason Stop Dose Admin Acetaminophen 650 mg 05/23/21 11:43 05/31/21 03:22 Acetaminophen 650 Mg Rect Supp MS 650 mg Q6H PRN Administration Pain MILD(1-3)/Fever >100.5/EPSTEIN Lipase/Protease/Amylase 1 each 05/29/21 08:45 Lipase 10,500/Protease 25,000/Amylase 43,750 (Units) Dr Mitchell FEEDTUBE PRN PRN For Clogged Feeding Tube Dextrose 0 ml 05/31/21 10:47 Dextrose 10% *Hypoglycemia IV PRN PRN Hypoglycemia Enoxaparin Sodium 40 mg 05/28/21 15:00 06/01/21 09:00 Enoxaparin 40 Mg/0.4 Ml Inj SUB-Q 40 mg QDAY@1000 MARK Administration Famotidine 40 mg 06/01/21 22:00 Famotidine 20 Mg Tab PO QHS MARK Fentanyl 50 mcg 06/01/21 12:29 Fentanyl 100 Mcg/2 Ml Inj IV Q10MIN PRN ANALGESIA Haloperidol Lactate 5 mg 05/30/21 12:18 06/01/21 09:27 Haloperidol Lactate 5 Mg/1 Ml Inj IV 5 mg Q6H PRN Administration Agitation Hydromorphone HCl 0.5 mg 05/23/21 11:43 05/29/21 09:18 Hydromorphone 1 Mg/1 Ml Inj IV 0.5 mg Q24H PRN Administration Pain , Severe (7-10) Hydrophilic Ointment 1 applic 06/01/21 12:30 Lip Therapy Vaseline TP Q2HR PRN Dry Lips Dexmedetomidine HCl 400 mcg/ 104 mls @ 5.307 mls/hr 05/24/21 05:00 06/01/21 16:04 Sodium Chloride IV 0.8 mcg/kg/hr TITRATE MARK 21.228 mls/hr Titration Protocol 0.2 MCG/KG/HR Fentanyl Citrate 2,000 mcg in 100 mls @ 5.103 mls/hr 06/01/21 13:00 06/01/21 17:46 Fentanyl Drip Premix IV 4 mcg/kg/hr TITR MARK 20.412 mls/hr Administration Protocol 1 MCG/KG/HR Propofol 1,000 mg in 100 mls @ 3.062 mls/hr 06/01/21 12:10 06/01/21 16:04 Diprivan 10 Mg/Ml IV 35 mcg/kg/min TITR MARK 21.432 mls/hr Administration Protocol 5 MCG/KG/MIN Lorazepam 2 mg 05/31/21 11:00 06/01/21 07:44 Lorazepam 2 Mg/Ml Vial IV 2 mg Q4H PRN Administration Agitation Metoprolol Tartrate 12.5 mg 06/01/21 22:00 Metoprolol Tartrate 25 Mg Tab PO BID MARK Morphine Sulfate 2 mg 05/23/21 11:43 Morphine 2 Mg/1 Ml Inj IV Q24H PRN Pain, Moderate (4-6) Multi-Ingred Cream/Lotion/Oil/Oint 1 applic 06/01/21 12:30 Mineral Oil/Petrolatum, White Ophth Oint 3.5 Gm OU Q4HR PRN Dry Eye(s) Ondansetron HCl 4 mg 05/23/21 11:43 Ondansetron 4 Mg/2 Ml Inj IV Q8H PRN Nausea And Vomiting Senna 17.2 mg 05/28/21 22:00 05/31/21 21:22 Sennosides 8.6 Mg Tab PO 17.2 mg QHS MARK Administration Senna/Docusate Sodium 1 tab 06/01/21 22:00 Sennosides/Docusate Sodium 8.6/50 Mg Tab FEEDTUBE BID MARK Simple Syrup 15 ml 05/29/21 08:45 Simple Syrup 15 Ml FEEDTUBE PRN PRN Hypoglycemia Simple Syrup 30 ml 05/29/21 08:45 Simple Syrup 15 Ml FEEDTUBE PRN PRN Hypoglycemia Sodium Bicarbonate 325 mg 05/29/21 08:45 Sodium Bicarbonate 325 Mg Tab FEEDTUBE PRN PRN For Clogged Feeding Tube Sodium Chloride 10 ml 05/23/21 22:00 06/01/21 09:00 Sodium Chloride 0.9% 10 Ml Flush Syringe IV Not Given BID MARK Sodium Chloride 10 ml 05/23/21 11:43 Sodium Chloride 0.9% 10 Ml Flush Syringe IV PRN PRN LINE FLUSH Sodium Chloride 10 ml 05/31/21 09:50 06/01/21 12:32 Sodium Chloride 0.9% 50 Ml Ivpb IV 10 ml PRN PRN Administration FLUSH Vitamin B Complex/Folic Acid 1 each 05/30/21 10:00 06/01/21 09:00 Folbee Plus Cz (Folic Acid/Vit Bcomp&C/Cu/Znox) PO Not Given QDAY [facility] Nutrition/Malnutrition Assess - Dietary Evaluation Nutrition/Malnutrition Findings: Nutrition Notes Start: 05/28/21 12:16 Freq: Status: Active Protocol: Document 05/31/21 15:28 GREGG (Rec: 05/31/21 15:51 GREGG [id number]) Nutrition Notes Initial or Follow up Brief Note Current Diet TF-Vital HP @ 70 ml/hr (since D 05/31). Height 6 ft Weight 102.058 kg [place] Body Weight (kg) 80.90 BMI 30.5 Weight change and time frame No body weight change in 2 days reported. Subjective/Other Information RD consult for routine F/u on TF tolerance. Pt extubated from mechanical ventilation, now on Bi-PaP+ tolerating well. TF continues as prescribed. Percent of energy/protein needs met: Prescribed Vital HP @ 70 ml/hr provides for energy/protein needs (1,655 Kcal/145 g) during LOS, 70% Kcal; 89% AA. #1 Nutrition Diagnosis Inadequate oral intake Diagnosis Progress(for reassessment Continues documentation) Is patient on ventilator? Yes Is Patient Ambulatory and/or Out of Bed No REE-([facility]-confined to bed) 1034.912 Calculation Used for Recommendations 65-70% energy needs Additional Notes Energy needs: 1474-2925 kcal/ day Pro needs 2g/kg IBW: 162g/day Fluid needs 1ml/kcal Nutrition Intervention Nutrition Support: Continue Vital HP @ 70 ml/hr. Flush: 170 ml water Q 4 hr, or as per MD. Kcal 1,655 Protein (gm) 145 Carbohydrates (gm) 185 Fat (gm) 38 Fluid (mL) 1,384 Fiber (gm) 0 % RDI: 70% Kcal; 89% AA. Goal #1 Provide at least 75% of energy /protein needs through Enteral Feeding during LOS. Goal #2 Maintain body weight within +/ -3% of admission body weight during LOS. Follow-Up By: 06/07/21 Additional Comments Continue monitoring TF tolerance and BM. <MAVIS CARVALHO - Last Filed: 06/14/21 18:55> Assessment and Plan Assessment and plan: I saw and evaluated the patient. Discussed with the nurse practitioner and agree with their findings and plan as documented in this note. Hospitalist Physical - Constitutional Vitals: Temp Pulse Resp BP Pulse Ox 99.9 F H 101 H 25 H 129/57 99 06/10/21 12:00 06/10/21 16:30 06/10/21 16:30 06/10/21 16:30 06/10/21 16:57 HEART Score - HEART Score Troponin: Troponin T < 0.010 ng/mL (0.00-0.029) 05/23/21 09:38 Results - Labs CBC & Chem 7: 06/10/21 05:53 06/10/21 05:53 Labs: Laboratory Last Values WBC 10.8 K/mm3 (4.5-11.0) 06/10/21 05:53 RBC 3.68 M/mm3 (3.65-5.03) 06/10/21 05:53 Hgb 10.3 gm/dl (11.8-15.2) L 06/10/21 05:53 Hct 31.7 % (35.5-45.6) L 06/10/21 05:53 MCV 86 fl (84-94) 06/10/21 05:53 MCH 28 pg (28-32) 06/10/21 05:53 MCHC 32 % (32-34) 06/10/21 05:53 RDW 16.5 % (13.2-15.2) H 06/10/21 05:53 Plt Count 527 K/mm3 (140-440) H 06/10/21 05:53 Lymph % (Auto) 11.2 % (13.4-35.0) L 05/28/21 10:05 Price % (Auto) 8.6 % (0.0-7.3) H 05/28/21 10:05 Eos % (Auto) 0.8 % (0.0-4.3) 05/28/21 10:05 Baso % (Auto) 0.5 % (0.0-1.8) 05/28/21 10:05 Lymph # (Auto) 1.3 K/mm3 (1.2-5.4) 05/28/21 10:05 Price # (Auto) 1.0 K/mm3 (0.0-0.8) H 05/28/21 10:05 Eos # (Auto) 0.1 K/mm3 (0.0-0.4) 05/28/21 10:05 Baso # (Auto) 0.1 K/mm3 (0.0-0.1) 05/28/21 10:05 Add Manual Diff Complete 05/27/21 03:18 Total Counted 100 05/27/21 03:18 Seg Neutrophils % 78.9 % (40.0-70.0) H 05/28/21 10:05 Seg Neuts % (Manual) 92.0 % (40.0-70.0) H 05/27/21 03:18 Band Neutrophils % 0 % 05/27/21 03:18 Lymphocytes % (Manual) 5.0 % (13.4-35.0) L 05/27/21 03:18 Reactive Lymphs % (Man) 0 % 05/27/21 03:18 Monocytes % (Manual) 3.0 % (0.0-7.3) 05/27/21 03:18 Eosinophils % (Manual) 0 % (0.0-4.3) 05/27/21 03:18 Basophils % (Manual) 0 % (0.0-1.8) 05/27/21 03:18 Metamyelocytes % 0 % 05/27/21 03:18 Myelocytes % 0 % 05/27/21 03:18 Promyelocytes % 0 % 05/27/21 03:18 Blast Cells % 0 % 05/27/21 03:18 Nucleated RBC % Not Reportable 05/27/21 03:18 Seg Neutrophils # 9.0 K/mm3 (1.8-7.7) H 05/28/21 10:05 Seg Neutrophils # Man 19.8 K/mm3 (1.8-7.7) H 05/27/21 03:18 Band Neutrophils # 0.0 K/mm3 05/27/21 03:18 Lymphocytes # (Manual) 1.1 K/mm3 (1.2-5.4) L 05/27/21 03:18 Abs React Lymphs (Man) 0.0 K/mm3 05/27/21 03:18 Monocytes # (Manual) 0.6 K/mm3 (0.0-0.8) 05/27/21 03:18 Eosinophils # (Manual) 0.0 K/mm3 (0.0-0.4) 05/27/21 03:18 Basophils # (Manual) 0.0 K/mm3 (0.0-0.1) 05/27/21 03:18 Metamyelocytes # 0.0 K/mm3 05/27/21 03:18 Myelocytes # 0.0 K/mm3 05/27/21 03:18 Promyelocytes # 0.0 K/mm3 05/27/21 03:18 Blast Cells # 0.0 K/mm3 05/27/21 03:18 WBC Morphology Not Reportable 05/27/21 03:18 Hypersegmented Neuts Not Reportable 05/27/21 03:18 Hyposegmented Neuts Not Reportable 05/27/21 03:18 Hypogranular Neuts Not Reportable 05/27/21 03:18 Smudge Cells Not Reportable 05/27/21 03:18 Toxic Granulation Not Reportable 05/27/21 03:18 Toxic Vacuolation Not Reportable 05/27/21 03:18 Dohle Bodies Not Reportable 05/27/21 03:18 Pelger-Huet Anomaly Not Reportable 05/27/21 03:18 Glenn Rods Not Reportable 05/27/21 03:18 Platelet Estimate Consistent w auto 05/27/21 03:18 Clumped Platelets Not Reportable 05/27/21 03:18 Plt Clumps, EDTA Not Reportable 05/27/21 03:18 Large Platelets Not Reportable 05/27/21 03:18 Giant Platelets Not Reportable 05/27/21 03:18 Platelet Satelliting Not Reportable 05/27/21 03:18 Plt Morphology Comment Not Reportable 05/27/21 03:18 RBC Morphology Normal 05/27/21 03:18 Dimorphic RBCs Not Reportable 05/27/21 03:18 Polychromasia Not Reportable 05/27/21 03:18 Hypochromasia Not Reportable 05/27/21 03:18 Poikilocytosis Not Reportable 05/27/21 03:18 Anisocytosis Not Reportable 05/27/21 03:18 Microcytosis Not Reportable 05/27/21 03:18 Macrocytosis Not Reportable 05/27/21 03:18 Spherocytes Not Reportable 05/27/21 03:18 Pappenheimer Bodies Not Reportable 05/27/21 03:18 Sickle Cells Not Reportable 05/27/21 03:18 Target Cells Not Reportable 05/27/21 03:18 Tear Drop Cells Not Reportable 05/27/21 03:18 Ovalocytes Not Reportable 05/27/21 03:18 Helmet Cells Not Reportable 05/27/21 03:18 Maravilla-Virgil Bodies Not Reportable 05/27/21 03:18 Dowell Rings Not Reportable 05/27/21 03:18 Giorgio Cells Not Reportable 05/27/21 03:18 Bite Cells Not Reportable 05/27/21 03:18 Crenated Cell Not Reportable 05/27/21 03:18 Elliptocytes Not Reportable 05/27/21 03:18 Acanthocytes (Spur) Not Reportable 05/27/21 03:18 Rouleaux Not Reportable 05/27/21 03:18 Hemoglobin C Crystals Not Reportable 05/27/21 03:18 Schistocytes Not Reportable 05/27/21 03:18 Malaria parasites Not Reportable 05/27/21 03:18 Frandy Bodies Not Reportable 05/27/21 03:18 Hem Pathologist Commnt No 05/27/21 03:18 PT 14.2 Sec. (12.2-14.9) 06/07/21 10:50 INR 0.99 (0.87-1.13) 06/07/21 10:50 APTT 36.1 Sec. (24.2-36.6) 06/03/21 Unknown Heparin Anti-Xa Level 0.34 U.I./ml (0.3-0.7) 06/07/21 10:50 ABG pH 7.406 (7.320-7.450) 06/04/21 04:00 POC ABG pCO2 51.5 mmHg (32.0-48.0) H 06/04/21 04:00 ABG pCO2 54.4 mm Hg 06/02/21 05:42 POC ABG pO2 61.7 mmHg (83-108) L 06/04/21 04:00 ABG pO2 141.2 mm Hg (80.0-90.0) H 06/02/21 05:42 POC ABG HCO3 31.6 06/04/21 04:00 ABG HCO3 30.6 mmol/L (20.0-26.0) H 06/02/21 05:42 ABG O2 Saturation 92.7 (0-100) 06/04/21 04:00 ABG O2 Content 16.6 (0.0-44) 06/02/21 05:42 POC ABG Base Excess 5.7 06/04/21 04:00 ABG Base Excess 4.1 mmol/L (-2.0-3.0) H 06/02/21 05:42 ABG Hemoglobin 12.7 (12.0-17.5) 06/04/21 04:00 ABG Oxyhemoglobin 90.9 (94-98) L 06/04/21 04:00 ABG Carboxyhemoglobin 1.5 % (0.0-5.0) 06/02/21 05:42 ABG Methemoglobin 0.3 (0.0-1.5) 06/04/21 04:00 ABG Sodium 137.9 mmol/L (136.0-145.0) 05/24/21 03:44 ABG Potassium 5.6 mmol/L (3.40-4.50) H 05/24/21 03:44 ABG Chloride 105.0 mmol/L (98-107) 05/24/21 03:44 ABG Glucose 53 mg/dL (65-95) L 05/24/21 03:44 Oxyhemoglobin 96.7 % (95.0-99.0) 06/02/21 05:42 Carboxyhemoglobin 1.6 (0.5-1.5) H 06/04/21 04:00 FiO2 50 % 06/02/21 05:42 FiO2 % 35.0 06/04/21 04:00 Sodium 142 mmol/L (137-145) 06/10/21 05:53 Potassium 3.9 mmol/L (3.6-5.0) 06/10/21 05:53 Chloride 106.8 mmol/L (98-107) 06/10/21 05:53 Carbon Dioxide 28 mmol/L (22-30) 06/10/21 05:53 Anion Gap 11 mmol/L 06/10/21 05:53 BUN 13 mg/dL (9-20) 06/10/21 05:53 Creatinine 0.6 mg/dL (0.8-1.3) L 06/10/21 05:53 Creatinine 0.6 mg/dL (0.8-1.3) L 06/10/21 05:53 Estimated GFR > 60 ml/min 06/10/21 05:53 Estimated GFR > 60 ml/min 06/10/21 05:53 BUN/Creatinine Ratio 22 % 06/10/21 05:53 Glucose 128 mg/dL (75-100) H 06/10/21 05:53 POC Glucose 135 mg/dL (70-105) H 06/10/21 12:16 Lactic Acid 2.10 mmol/L (0.7-2.0) H* 05/28/21 10:05 Calcium 8.9 mg/dL (8.4-10.2) 06/10/21 05:53 Phosphorus 3.90 mg/dL (2.5-4.5) D 06/10/21 05:53 Magnesium 1.80 mg/dL (1.7-2.3) 06/10/21 05:53 Total Bilirubin 2.90 mg/dL (0.1-1.2) H 06/02/21 20:00 Direct Bilirubin 2.4 mg/dL (0-0.2) H 06/02/21 07:41 Indirect Bilirubin 0.9 mg/dL 06/02/21 07:41 AST 53 units/L (5-40) H 06/02/21 20:00 ALT 30 units/L (7-56) 06/02/21 20:00 Alkaline Phosphatase 115 units/L (35-129) 06/02/21 20:00 Total Creatine Kinase 556 units/L (55-170) H 05/24/21 09:35 Troponin T < 0.010 ng/mL (0.00-0.029) 05/23/21 09:38 C-Reactive Protein 34.80 mg/dL (0.00-1.30) H 05/28/21 10:05 NT-Pro-B Natriuret Pep 6058 pg/mL (0-450) H 05/23/21 09:38 Total Protein 6.2 g/dL (6.3-8.2) L 06/02/21 20:00 Albumin 1.8 g/dL (3.9-5) L 06/02/21 20:00 Albumin/Globulin Ratio 0.4 % 06/02/21 20:00 Triglycerides 142 mg/dL (2-149) 06/07/21 Unknown Procalcitonin 0.25 ng/mL (<0.15) 06/08/21 04:42 Arterial Blood Glucose 53 mg/dL (65-95) L 05/24/21 03:44 Arterial Blood Ionized Calcium 4.6 mg/dL (4.6-5.3) 05/24/21 03:44 Urine Color Sherri (Yellow) 05/28/21 12:20 Urine Turbidity Clear (Clear) 05/28/21 12:20 Urine pH 6.0 (5.0-7.0) 05/28/21 12:20 Ur Specific [place] 1.017 (1.003-1.030) 05/28/21 12:20 Urine Protein 30 mg/dl mg/dL (Negative) 05/28/21 12:20 Urine Glucose (UA) Neg mg/dL (Negative) 05/28/21 12:20 Urine Ketones Neg mg/dL (Negative) 05/28/21 12:20 Urine Blood Mod (Negative) 05/28/21 12:20 Urine Nitrite Neg (Negative) 05/28/21 12:20 Urine Bilirubin Mod (Negative) 05/28/21 12:20 Urine Ictotest Positive (Negative) 05/28/21 12:20 Urine Urobilinogen 4.0 mg/dL (<2.0) 05/28/21 12:20 Ur Leukocyte Esterase Neg (Negative) 05/28/21 12:20 Urine WBC (Auto) 3.0 /HPF (0.0-6.0) 05/28/21 12:20 Urine RBC (Auto) 4.0 /HPF (0.0-6.0) 05/28/21 12:20 U Epithel Cells (Auto) < 1.0 /HPF (0-13.0) 05/28/21 12:20 Urine Bacteria (Auto) 1+ /HPF (Negative) 05/28/21 12:20 Urine Mucus Few /HPF 05/28/21 12:20 Urine Yeast (Budding) 1+ /HPF 05/24/21 Unknown Salicylates < 0.3 mg/dL (2.8-20.0) L 05/23/21 09:38 Urine Opiates Screen Negative 05/23/21 09:41 Urine Methadone Screen Negative 05/23/21 09:41 Acetaminophen 5.0 ug/mL (10.0-30.0) L 05/23/21 09:38 Ur Barbiturates Screen Negative 05/23/21 09:41 Ur Phencyclidine Scrn Negative 05/23/21 09:41 Ur Amphetamines Screen Positive 05/23/21 09:41 U Benzodiazepines Scrn Negative 05/23/21 09:41 Urine Cocaine Screen Negative 05/23/21 09:41 U Marijuana (THC) Screen Negative 05/23/21 09:41 Drugs of Abuse Note Disclamer 05/23/21 09:41 Coronavirus (PCR) Negative (Negative) 05/26/21 08:14 Hepatitis A IgM Ab Non-reactive (NonReactive) 05/27/21 16:00 Hep Bs Antigen Non-reactive (Negative) 05/27/21 16:00 Hep B Core IgM Ab Non-reactive (NonReactive) 05/27/21 16:00 Hepatitis C Antibody Non-reactive (NonReactive) 05/27/21 16:00 Fajardo/IV: Voiding Method Indwelling Catheter Nutrition/Malnutrition Assess - Dietary Evaluation Nutrition/Malnutrition Findings: Nutrition Notes Start: 05/28/21 12 :16 Freq: Status: Discharge Protocol: Document 06/07/21 15:07 YURI (Rec: 06/07/21 15:17 YURI [id number]) Nutrition Notes Initial or Follow up Reassessment Current Diagnosis Heart Failure,Respiratory Failure Other Pertinent Diagnosis Acute encephalopathy, Overdose , Methamphetamine dependence Current Diet TF - Vital HP at 70ml/hr Labs/Tests Phos 2.3 Pertinent Medications Lasix, 15mmol KPhos x 1 dose, Vit B complex/Folic acid Height 6 ft Weight 102.058 kg [place] Body Weight (kg) 80.90 BMI 30.5 Weight Status Obese Subjective/Other Information Pt remains on vent support. Per RN, pt tolerating TF at goal rate and currently receiving 200ml water flush q4h. PEG and trach placed on 06/04. Percent of energy/protein needs met: 71% energy 91% pro Burn Absent Trauma Absent #1 Nutrition Diagnosis Inadequate oral intake Diagnosis Progress(for reassessment Continues documentation) Is patient on ventilator? Yes Is Patient Ambulatory and/or Out of Bed No REE-([facility]-confined to bed) [phone] Calculation Used for Recommendations 65-70% energy needs Additional Notes Energy needs: 3259-1806 kcal/ day Pro needs 2g/kg IBW: 162g/day Fluid needs 1ml/kcal Nutrition Intervention Nutrition Support: Continue Vital HP at 70 ml/hr. Continue 200ml water flush q4h until hypernatremia resolves; then provide 50ml water flush q4h. Kcal 1,680 Protein (gm) 147 Carbohydrates (gm) 188 Fat (gm) 39 Fluid (mL) 1,404 Fiber (gm) 0 Goal #1 TF tolerance Goal #2 TF to meet 65-70% energy and at least 75% pro needs Follow-Up By: 06/11/21 Additional Comments F/U: Vent status, Na lab/water flush
--- NOTE | 2021-06-01 18:24 | Cat Scan Report ---
CT BRAIN: 06/01/2021 INDICATION / CLINICAL INFORMATION: ams. COMPARISON: None available. FINDINGS: BRAIN/INTRACRANIAL STRUCTURES: Unenhanced CT images of the brain demonstrate no evidence of acute abn ormality. Ventricles and sulci are normal in size and shape. There is no evidence of hemorrhage or mass. There is no evidence of acute large vessel territory isch emic injury. There are no abnormal extra-axial fluid collections. EXTRACRANIAL STRUCTURES: Opacification of the right maxillary sinus is noted. There is opacification of some right anterior ethmoid air cells. Mild mucosal thickening is present in the sphenoid sinus. F rontal sinuses clear. IMPRESSION: No acute intracranial abnormality. All CT scans at this location are performed using dose reduction to ALARA by means of automated expos ure control. Signer Name: Leland Seo MD Signed: 06/01/2021 6:20 PM Workstation Name: [id number]
[2021-06-01] MEDS: SENNOSIDES/DOCUSATE SODIUM 8.6/50 MG TAB FEEDTUBE SCH (21:16)
[2021-06-01] MEDS: SENNOSIDES 8.6 MG TAB PO SCH (21:17)
[2021-06-01] MEDS ORDERED: FAMOTIDINE 20 MG/2 ML INJ IV SCH (22:00)
[2021-06-01] MEDS ORDERED: FAMOTIDINE 20 MG TAB PO SCH (22:00)
[2021-06-02] MEDS: fentaNYL DRIP Premix 2,000 MCG/100 ML BAG IV SCH ×5 (02:40→20:58)
--- NOTE | 2021-06-02 04:56 | XRay Report ---
CHEST 1 VIEW 06/02/2021 3:42 AM INDICATION / CLINICAL INFORMATION: follow up respiratory failure. COMPARISON: 06/01/2021 FINDINGS: SUPPORT DEVICES: Stable, satisfactory device positioning. HEART / MEDIASTINUM: No significant abnormality. LUNGS / PLEURA: No significant pulmonary or pleural abnormality. No pneumothorax. ADDITIONAL FINDINGS: No significant additional findings. IMPRESSION: 1. No acute findings. Signer Name: Toribio Morales MD Signed: 06/02/2021 4:51 AM Workstation Name: [id number]
[2021-06-02 06:12] LABS: ABG Base Excess 4.1 mmol/L (-2.0-3.0); ABG HCO3 30.6 mmol/L (20.0-26.0); ABG Methemoglobin 0.5 % (0.0-1.5); ABG Oxygen Saturation 98.6 % (95.0-99.0); ABG PCO2 54.4 mm Hg; ABG PH 7.367 pH Units (7.350-7.450); ABG PO2 141.2 mm Hg (80.0-90.0)
[2021-06-02] MEDS: FREE WATER PO SCH ×6 (06:22→20:59)
[2021-06-02 09:18] LABS: Hematocrit 34.3 % (35.5-45.6); Hemoglobin 11.1 gm/dl (11.8-15.2); Mean Corpuscular HGB Conc 32 % (32-34); Mean Corpuscular Volume 88 fl (84-94); Platelet Count 424 K/mm3 (140-440); Red Cell Distribution Width 15.9 % (13.2-15.2)
[2021-06-02] MEDS: SENNOSIDES/DOCUSATE SODIUM 8.6/50 MG TAB FEEDTUBE SCH ×2 (09:28→21:00)
[2021-06-02] MEDS: FOLBEE PLUS CZ (FOLIC ACID/VIT BCOMP&C/CU/ZNOX) PO SCH (09:28)
[2021-06-02] MEDS: ENOXAPARIN 40 MG/0.4 ML INJ SUB-Q SCH (09:29)
[2021-06-02 09:35] LABS: BUN/Creatinine Ratio 16; Blood Urea Nitrogen 13 mg/dL (9-20); Calcium 8.8 mg/dL (8.4-10.2); Hemolysis Index 0
--- NOTE | 2021-06-02 11:39 | Progress Note ---
Assessment and Plan Impression: * Nonoliguric cute kidney injury secondary to ATN * Acute hypoxic respiratory failure --COVID 19 negative * Acute encephalopathy * Hypernatremia * Hypotension * Drug overdose * Hyperkalemia * Hypernatremia Plan: * Renal function has improved - BRYNN resolved * Hypernatremia worsened - Na 148->150 - note free water flushes with tube fe eds, may need to increase if hypernatremia not improving or start D5W * Likely worsened by Lasix as well, due to greater water than salt loss (received one dose on 06/01) * K repletion prn, note order * Continue close monitoring of renal function * vent/respiratory management per pulm * Pressors prn - maintain MAP>65 * Dose medications for renal function * Strict I/O * Avoid potential nephrotoxins Subjective Date of service: 06/02/21 Principal diagnosis: Overdose Interval history: Chart, vitals, labs reviewed. Reintubated yesterday, FiO2 50% Objective - Exam Narrative Exam: General appearance: well-developed, well-nourished, on vent EENT: ET tube in place Respiratory: Present: Other (coarse BS) Cardiology: regular, S1S2 Gastrointestinal: no distended Integumentary: warm and dry - Vital Signs Vital signs: Vital Signs - 12hr 06/02/21 06/02/21 06/02/21 00:00 00:06 00:30 Temperature 99.7 F H Pulse Rate 75 74 75 Pulse Rate [ From Monitor] Respiratory 17 19 20 Rate Blood Pressure 97/52 97/52 95/52 O2 Sat by Pulse 98 94 Oximetry 06/02/21 06/02/21 06/02/21 01:00 01:30 02:00 Temperature Pulse Rate 75 75 74 Pulse Rate [ From Monitor] Respiratory 18 20 20 Rate Blood Pressure 94/53 95/55 93/51 O2 Sat by Pulse 94 98 Oximetry 06/02/21 06/02/21 06/02/21 02:30 02:32 03:00 Temperature Pulse Rate 75 75 75 Pulse Rate [ From Monitor] Respiratory 20 18 Rate Blood Pressure 97/55 95/52 O2 Sat by Pulse Oximetry 06/02/21 06/02/21 06/02/21 03:30 03:51 04:00 Temperature 99.9 F H Pulse Rate 75 80 Pulse Rate [ 84 From Monitor] Respiratory 19 24 18 Rate Blood Pressure 97/55 107/62 O2 Sat by Pulse 94 98 94 Oximetry 06/02/21 06/02/21 06/02/21 04:30 04:48 05:00 Temperature Pulse Rate 77 77 77 Pulse Rate [ From Monitor] Respiratory 17 19 Rate Blood Pressure 101/62 109/63 108/62 O2 Sat by Pulse 97 Oximetry 06/02/21 06/02/21 06/02/21 05:30 05:50 06:00 Temperature Pulse Rate 77 76 76 Pulse Rate [ From Monitor] Respiratory 18 15 Rate Blood Pressure 104/60 101/60 O2 Sat by Pulse 94 Oximetry 06/02/21 06/02/21 06/02/21 06:30 07:00 07:30 Temperature Pulse Rate 75 74 74 Pulse Rate [ From Monitor] Respiratory 9 L 12 11 L Rate Blood Pressure 106/58 105/60 103/59 O2 Sat by Pulse 93 Oximetry 06/02/21 06/02/21 06/02/21 08:00 08:30 09:00 Temperature Pulse Rate 76 80 82 Pulse Rate [ 74 From Monitor] Respiratory 20 12 19 Rate Blood Pressure 99/52 97/49 101/54 O2 Sat by Pulse 96 91 Oximetry 06/02/21 06/02/21 06/02/21 09:30 10:00 10:30 Temperature Pulse Rate 72 72 71 Pulse Rate [ From Monitor] Respiratory 20 19 20 Rate Blood Pressure 95/47 98/44 102/48 O2 Sat by Pulse 91 97 97 Oximetry 06/02/21 11:00 Temperature Pulse Rate 71 Pulse Rate [ From Monitor] Respiratory 21 Rate Blood Pressure 97/48 O2 Sat by Pulse 99 Oximetry - Lab 06/02/21 07:41 06/02/21 07:41 Most recent lab results ABG pH 7.367 pH Units (7.350-7.450) 06/02/21 05:42 ABG pCO2 54.4 mm Hg 06/02/21 05:42 ABG pO2 141.2 mm Hg (80.0-90.0) H 06/02/21 05:42 ABG HCO3 30.6 mmol/L (20.0-26.0) H 06/02/21 05:42 ABG O2 Saturation 98.6 % (95.0-99.0) 06/02/21 05:42 Calcium 8.8 mg/dL (8.4-10.2) 06/02/21 07:41 Phosphorus 3.00 mg/dL (2.5-4.5) 06/02/21 07:41 Magnesium 1.70 mg/dL (1.7-2.3) 06/02/21 07:41 Medications & Allergies - Medications Allergies/Adverse Reactions: Allergies No Known Allergies Allergy (Verified 05/26/21 10:09) Home Medications: Home Medications Medication Instructions Recorded Confirmed Last Taken Type Unobtainable 09/13/13 09/13/13 Unknown History Active Medications: Generic Name Dose Route Start Last Admin Trade Name Freq PRN Reason Stop Dose Admin Acetaminophen 650 mg 05/23/21 11:43 05/31/21 03:22 Acetaminophen 650 Mg Rect Supp GA 650 mg Q6H PRN Administration Pain MILD(1-3)/Fever >100.5/EPSTEIN Lipase/Protease/Amylase 1 each 05/29/21 08:45 Lipase 10,500/Protease 25,000/Amylase 43,750 (Units) Dr Cap FEEDTUBE PRN PRN For Clogged Feeding Tube Dextrose 0 ml 05/31/21 10:47 Dextrose 10% *Hypoglycemia IV PRN PRN Hypoglycemia Enoxaparin Sodium 40 mg 05/28/21 15:00 06/02/21 09:29 Enoxaparin 40 Mg/0.4 Ml Inj SUB-Q 40 mg QDAY@1000 MARK Administration Famotidine 40 mg 06/02/21 22:00 Famotidine 20 Mg Tab FEEDTUBE QHS MARK Fentanyl 50 mcg 06/01/21 12:29 Fentanyl 100 Mcg/2 Ml Inj IV Q10MIN PRN ANALGESIA Haloperidol Lactate 5 mg 05/30/21 12:18 06/01/21 09:27 Haloperidol Lactate 5 Mg/1 Ml Inj IV 5 mg Q6H PRN Administration Agitation Hydrophilic Ointment 1 applic 06/01/21 12:30 Lip Therapy Vaseline TP Q2HR PRN Dry Lips Dexmedetomidine HCl 400 mcg/ 104 mls @ 5.307 mls/hr 05/24/21 05:00 06/02/21 09:54 Sodium Chloride IV 0.8 mcg/kg/hr TITRATE MARK 21.228 mls/hr Titration Protocol 0.2 MCG/KG/HR Fentanyl Citrate 2,000 mcg in 100 mls @ 5.103 mls/hr 06/01/21 13:00 06/02/21 06:25 Fentanyl Drip Premix IV 4 mcg/kg/hr TITR MARK 20.412 mls/hr Administration Protocol 1 MCG/KG/HR Propofol 1,000 mg in 100 mls @ 3.062 mls/hr 06/01/21 12:10 06/02/21 08:40 Diprivan 10 Mg/Ml IV 35 mcg/kg/min TITR MARK 21.432 mls/hr Administration Protocol 5 MCG/KG/MIN Lorazepam 2 mg 05/31/21 11:00 06/01/21 07:44 Lorazepam 2 Mg/Ml Vial IV 2 mg Q4H PRN Administration Agitation Metoprolol Tartrate 12.5 mg 06/01/21 22:00 06/01/21 20:59 Metoprolol Tartrate 25 Mg Tab PO Not Given BID MARK Midodrine 5 mg 06/02/21 12:00 Midodrine 5 Mg Tab PO TID@0800,1200,1600 MARK Multi-Ingred Cream/Lotion/Oil/Oint 1 applic 06/01/21 12:30 Mineral Oil/Petrolatum, White Ophth Oint 3.5 Gm OU Q4HR PRN Dry Eye(s) Ondansetron HCl 4 mg 05/23/21 11:43 Ondansetron 4 Mg/2 Ml Inj IV Q8H PRN Nausea And Vomiting Senna/Docusate Sodium 1 tab 06/01/21 22:00 06/02/21 09:28 Sennosides/Docusate Sodium 8.6/50 Mg Tab FEEDTUBE 1 tab BID MARK Administration Simple Syrup 15 ml 05/29/21 08:45 Simple Syrup 15 Ml FEEDTUBE PRN PRN Hypoglycemia Simple Syrup 30 ml 05/29/21 08:45 Simple Syrup 15 Ml FEEDTUBE PRN PRN Hypoglycemia Sodium Bicarbonate 325 mg 05/29/21 08:45 Sodium Bicarbonate 325 Mg Tab FEEDTUBE PRN PRN For Clogged Feeding Tube Sodium Chloride 10 ml 05/23/21 22:00 06/02/21 09:30 Sodium Chloride 0.9% 10 Ml Flush Syringe IV 10 ml BID MARK Administration Sodium Chloride 10 ml 05/23/21 11:43 Sodium Chloride 0.9% 10 Ml Flush Syringe IV PRN PRN LINE FLUSH Sodium Chloride 10 ml 05/31/21 09:50 06/01/21 12:32 Sodium Chloride 0.9% 50 Ml Ivpb IV 10 ml PRN PRN Administration FLUSH Vitamin B Complex/Folic Acid 1 each 05/30/21 10:00 06/02/21 09:28 Folbee Plus Cz (Folic Acid/Vit Bcomp&C/Cu/Znox) PO 1 each QDAY MARK Administration
[2021-06-02] MEDS: MIDODRINE 5 MG TAB PO SCH ×2 (12:16→16:13)
--- NOTE | 2021-06-02 13:35 | Progress Note ---
Assessment and Plan Patient is a 40-year-old male with a past medical history of HFrEF (EF 15%) and methamphetamine dependence who was brought to the ED after being found unresponsive on 05/13/2021. Acute hypoxic respiratory failure-pulmonology following Drug overdose Acute on chronic HFrEF Sepsis Bilateral pneumonia BRYNN-Nephrology following Rhabdomyolysis Hypernatremia Echo 05/25/2021-EF 20 to 25%. Severe global hypokinesis of left ventricle. Left ventricle is moderately dilated. Doppler flow suggests impaired LV relaxation. Moderate mitral regurgitation. No pericardial effusion Cardiac cath 08/04/2020-Angiographically normal coronary arteries. This is indicative of a nonischemic cardiomyopathy. Mildly elevated biventricular filling pressures with normal cardiac index TTE, complete 08/02/20:LVEF is 18%,Severe global LV hypokinesis. Normal LV diastolic function. LA mildly dilated. Moderate mitral regurgitation with an eccentric MR jet(s),No previous echocardiogram for comparison. Outpatient medications: Coreg 6.52 mg p.o. twice daily, Lasix 40 mg p.o. daily, lisinopril 5 mg p.o. daily Plan: Will hold RAMYA and ARB as per nephro recs Recommend holding beta-woo due to patient soft BP We will initiate midodrine 5 mg p.o. 3 times daily due to soft BPs Patient seen in conjunction with Dr. Salazar who agrees with this plan of care - Patient Problems (1) Acute on chronic HFrEF (heart failure with reduced ejection fraction) Current Visit: Yes Status: Acute (2) PNA (pneumonia) Current Visit: Yes Status: Acute (3) Acute encephalopathy Current Visit: Yes Status: Acute (4) Acute respiratory failure Current Visit: Yes Status: Acute Qualifiers: Respiratory failure complication: hypoxia Qualified Code(s): J96.01 - Acute respiratory failure with hypoxia (5) Overdose by ingestion Current Visit: Yes Status: Acute Subjective Date of service: 06/02/21 Principal diagnosis: Overdose Interval history: Patient remains intubated and sedated. P Sinus 70s on monitor Objective Vital Signs Temp Pulse Pulse Resp BP Pulse Ox 06/02/21 12:05 71 97/48 99 06/02/21 12:00 98.0 F 06/02/21 11:00 71 21 97/48 99 06/02/21 10:30 71 20 102/48 97 06/02/21 10:00 72 19 98/44 97 01/26/22 09:30 72 20 95/47 91 06/02/21 09:00 82 19 101/54 06/02/21 08:30 80 12 97/49 91 06/02/21 08:00 98.0 F 76 74 20 99/52 96 06/02/21 07:30 74 11 L 103/59 93 06/02/21 07:00 74 12 105/60 06/02/21 06:30 75 9 L 106/58 06/02/21 06:00 76 15 101/60 06/02/21 05:50 76 06/02/21 05:30 77 18 104/60 94 06/02/21 05:00 77 19 108/62 06/02/21 04:48 77 109/63 97 06/02/21 04:30 77 17 101/62 06/02/21 04:00 99.9 F H 80 18 107/62 94 06/02/21 03:51 84 24 98 06/02/21 03:30 75 19 97/55 94 06/02/21 03:00 75 18 95/52 06/02/21 02:32 75 06/02/21 02:30 75 20 97/55 06/02/21 02:00 74 20 93/51 98 06/02/21 01:30 75 20 95/55 94 06/02/21 01:00 75 18 94/53 06/02/21 00:30 75 20 95/52 94 06/02/21 00:06 74 19 97/52 98 06/02/21 00:00 99.7 F H 75 17 97/52 06/01/21 23:31 75 22 98 06/01/21 23:30 75 20 94/51 96 06/01/21 23:19 75 95/54 98 06/01/21 23:00 75 18 95/52 96 06/01/21 22:30 76 20 99/51 95 06/01/21 22:00 76 20 96/52 06/01/21 21:30 76 22 92/50 06/01/21 21:12 77 06/01/21 21:00 77 20 97/48 95 06/01/21 20:30 77 22 96/49 06/01/21 20:00 98.5 F 78 76 25 H 97/50 94 06/01/21 19:50 77 99/52 98 06/01/21 19:30 78 25 H 99/57 06/01/21 19:00 76 25 H 90/41 92 06/01/21 18:30 84 29 H 85/41 92 06/01/21 18:00 82 26 H 86/38 89 06/01/21 17:41 93 H 29 H 93/45 93 06/01/21 17:00 77 26 H 93/45 93 06/01/21 16:48 77 92/46 98 06/01/21 16:30 77 24 96/48 94 06/01/21 16:00 98.8 F 77 26 H 93/48 94 06/01/21 15:42 77 77 28 H 98 06/01/21 15:30 79 27 H 95/51 100 06/01/21 15:00 81 31 H 92/54 97 06/01/21 14:30 86 31 H 95/54 94 06/01/21 14:01 91 H 30 H 101/57 92 06/01/21 13:31 97 H 34 H 109/62 92 - Physical Examination General: Other (intubated/sedated) HEENT: Positive: Normocephaly Neck: Positive: neck supple, trachea midline. Negative: JVD/HJR Cardiac: Positive: Reg Rate and Rhythm Lungs: Positive: Ventilated Respirations Neuro: Positive: Other (agitated) Abdomen: Positive: Soft Skin: Negative: Rash Extremities: Present: warm. Absent: edema - Labs and Meds CBC 06/02/21 Range/Units 07:41 WBC 17.4 H (4.5-11.0) K/mm3 RBC 3.90 (3.65-5.03) M/mm3 Hgb 11.1 L (11.8-15.2) gm/dl Hct 34.3 L (35.5-45.6) % Plt Count 424 (140-440) K/mm3 Comprehensive Metabolic Panel 06/02/21 Range/Units 07:41 Sodium 150 H (137-145) mmol/L Potassium 3.8 (3.6-5.0) mmol/L Chloride 111.8 H (98-107) mmol/L Carbon Dioxide 28 (22-30) mmol/L BUN 13 (9-20) mg/dL Creatinine 0.8 (0.8-1.3) mg/dL Glucose 93 (75-100) mg/dL Calcium 8.8 (8.4-10.2) mg/dL - Imaging and Cardiology EKG: report reviewed, image reviewed Echo: report reviewed Cardiac cath: report reviewed - Telemetry EKG Rhythm: Sinus Rhythm - EKG Sinus rhythms and dysrhythmias: sinus tachycardia Ventricular dysrhythmias: ventricular premature com Repolarization changes or abnormalities: nonspecific abnormality, ST segment, and/or T wave - Allied health notes Allied health notes reviewed: nursing
--- NOTE | 2021-06-02 14:17 | Progress Note ---
Assessment and Plan 40 y/o male with suspected overdose and metabolic acidosis 06/02/21: recheck LFT's. Consult surgery for trach and peg. Feed patient. Re viewed abdominal US from 05/27, unremarkable but if LFT's worse, may need to repeat or even consider CT of abdomen pelvis. 06/01/21: Reintubated today. Sedated. Spoke with mother over the phone. Given this is the third intubation in less than 10 days, will consult surgery for trach and peg. 05/31/21: Extubated and had some upper airway noise. RT gave racemic epi. Increased work of breathing but no desats so will try bipap therapy. If fails will be reintubated and trached. Keep NPO for now. Will need to change BB to IV while on bipap therapy. 05/28/21: Extubate again today once patient is more awake. Continue precedex to help with agitation. Will need swallow eval once extubated. Cards is seeing, await any new recs. spoke with them this morning and his cardiomyopathy and sys tolic heart failure are chronic with normal coronaries on a cath last year sometime in the [place] [facility]. 05/27/21: Get patient to ICU as soon as possible to achieve adequate sedation and mental state control to insure successful extubation. AGree with Precedex 05/26/21: Attempt extubation today once all sedation is off. 05/25/21: follow up echo. Spoke with RT about ABG. States will be in system within the hour. Still pressors but on Precedex, Versed and Fent. needs to be COVID tested. BNP was >6k. Unable to diurese right now given pressor requirements but need to follow up echo. need to get patient upstairs as soon as possible. Spoke with charge nurse and they are working on this. 1. CXR shows cardiomegaly with some bibasilar changes. Could be fluid. Suggest swabbing for COVID. Check BNP and obtain 2D echo given heart size. 2. Minimal sedation to assess mental status 3. Wean pressors for MAPS >60 4. Follow up renal recs 5. No ABG prior to intubation. Echo should be a bubble study given degree of hypoxemia seen on ABG CCT 31 minutes. Subjective Date of service: 06/02/21 Principal diagnosis: Overdose Interval history: heavily sedated to help control respiration. BP low likely secondary to sedation. Down to 45% (i weaned it). Good sats. ABG good this am, but he has never had bad ABG's. Objective Vital Signs - 12hr 06/02/21 06/02/21 06/02/21 02:30 02:32 03:00 Temperature Pulse Rate 75 75 75 Pulse Rate [ From Monitor] Respiratory 20 18 Rate Blood Pressure 97/55 95/52 O2 Sat by Pulse Oximetry 06/02/21 06/02/21 06/02/21 03:30 03:51 04:00 Temperature 99.9 F H Pulse Rate 75 80 Pulse Rate [ 84 From Monitor] Respiratory 19 24 18 Rate Blood Pressure 97/55 107/62 O2 Sat by Pulse 94 98 94 Oximetry 06/02/21 06/02/21 06/02/21 04:30 04:48 05:00 Temperature Pulse Rate 77 77 77 Pulse Rate [ From Monitor] Respiratory 17 19 Rate Blood Pressure 101/62 109/63 108/62 O2 Sat by Pulse 97 Oximetry 06/02/21 06/02/21 06/02/21 05:30 05:50 06:00 Temperature Pulse Rate 77 76 76 Pulse Rate [ From Monitor] Respiratory 18 15 Rate Blood Pressure 104/60 101/60 O2 Sat by Pulse 94 Oximetry 06/02/21 06/02/21 06/02/21 06:30 07:00 07:30 Temperature Pulse Rate 75 74 74 Pulse Rate [ From Monitor] Respiratory 9 L 12 11 L Rate Blood Pressure 106/58 105/60 103/59 O2 Sat by Pulse 93 Oximetry 06/02/21 06/02/21 06/02/21 08:00 08:30 09:00 Temperature 98.0 F Pulse Rate 76 80 82 Pulse Rate [ 74 From Monitor] Respiratory 20 12 19 Rate Blood Pressure 99/52 97/49 101/54 O2 Sat by Pulse 96 91 Oximetry 06/02/21 06/02/21 06/02/21 09:30 10:00 10:30 Temperature Pulse Rate 72 72 71 Pulse Rate [ From Monitor] Respiratory 20 19 20 Rate Blood Pressure 95/47 98/44 102/48 O2 Sat by Pulse 91 97 97 Oximetry 06/02/21 06/02/21 06/02/21 11:00 11:30 12:00 Temperature 98.0 F Pulse Rate 71 72 72 Pulse Rate [ From Monitor] Respiratory 21 20 20 Rate Blood Pressure 97/48 100/47 98/45 O2 Sat by Pulse 99 98 99 Oximetry 06/02/21 06/02/21 06/02/21 12:05 12:30 13:00 Temperature Pulse Rate 71 85 75 Pulse Rate [ From Monitor] Respiratory 18 20 Rate Blood Pressure 97/48 95/59 102/48 O2 Sat by Pulse 99 98 98 Oximetry 06/02/21 06/02/21 13:30 14:00 Temperature Pulse Rate 77 72 Pulse Rate [ From Monitor] Respiratory 20 20 Rate Blood Pressure 102/54 101/46 O2 Sat by Pulse 98 98 Oximetry Constitutional: other (Arousable to verbal stimulation) ENT: oropharynx moist, other (Orally intubated) Ascultation: Bilateral: rhonchi Cardiovascular: regular rate and rhythm (With episodes of tachycardia) Gastrointestinal: normoactive bowel sounds, soft, non-tender CBC and BMP: 06/02/21 07:41 06/02/21 07:41 ABG, PT/INR, D-dimer: ABG ABG pH 7.367 pH Units (7.350-7.450) 06/02/21 05:42 POC ABG pCO2 41.6 mmHg (32.0-48.0) 05/24/21 03:44 ABG pCO2 54.4 mm Hg 06/02/21 05:42 POC ABG pO2 87.6 mmHg (83-108) 05/24/21 03:44 ABG pO2 141.2 mm Hg (80.0-90.0) H 06/02/21 05:42 POC ABG HCO3 17.5 05/24/21 03:44 ABG O2 Saturation 98.6 % (95.0-99.0) 06/02/21 05:42 Abnormal lab findings: Abnormal Labs 05/23/21 05/23/21 05/23/21 05:55 09:38 09:38 WBC RBC 5.09 H Hgb Hct 46.2 H MCHC RDW Lymph % (Auto) [place] % (Auto) [place] # (Auto) Seg Neutrophils % Seg Neuts % (Manual) Lymphocytes % (Manual) Seg Neutrophils # Seg Neutrophils # Man Lymphocytes # (Manual) ABG pH 7.265 L ABG pO2 ABG HCO3 ABG O2 Saturation 94.6 L ABG Base Excess -4.5 L ABG Hemoglobin ABG Potassium ABG Glucose Oxyhemoglobin 92.3 L Sodium Potassium Chloride Carbon Dioxide 20 L BUN Creatinine Glucose 147 H POC Glucose Lactic Acid Calcium Phosphorus Magnesium Total Bilirubin Direct Bilirubin AST Total Creatine Kinase C-Reactive Protein NT-Pro-B Natriuret Pep Total Protein Albumin 3.6 L Arterial Blood Glucose Urine WBC (Auto) Salicylates Acetaminophen 05/23/21 05/23/21 05/23/21 09:38 09:38 09:38 WBC RBC Hgb Hct MCHC RDW Lymph % (Auto) [place] % (Auto) [place] # (Auto) Seg Neutrophils % Seg Neuts % (Manual) Lymphocytes % (Manual) Seg Neutrophils # Seg Neutrophils # Man Lymphocytes # (Manual) ABG pH ABG pO2 ABG HCO3 ABG O2 Saturation ABG Base Excess ABG Hemoglobin ABG Potassium ABG Glucose Oxyhemoglobin Sodium Potassium Chloride Carbon Dioxide BUN Creatinine Glucose POC Glucose Lactic Acid Calcium Phosphorus Magnesium Total Bilirubin Direct Bilirubin AST Total Creatine Kinase C-Reactive Protein NT-Pro-B Natriuret Pep 6058 H Total Protein Albumin Arterial Blood Glucose Urine WBC (Auto) Salicylates < 0.3 L Acetaminophen 5.0 L 05/23/21 05/23/21 05/24/21 12:49 Unknown 03:44 WBC RBC Hgb Hct MCHC RDW Lymph % (Auto) [place] % (Auto) [place] # (Auto) Seg Neutrophils % Seg Neuts % (Manual) Lymphocytes % (Manual) Seg Neutrophils # Seg Neutrophils # Man Lymphocytes # (Manual) ABG pH 7.208 L 7.241 L ABG pO2 52.2 L ABG HCO3 ABG O2 Saturation 93.5 L 83.7 L ABG Base Excess -6.7 L -3.7 L ABG Hemoglobin ABG Potassium 5.6 H ABG Glucose 53 L Oxyhemoglobin 91.1 L 81.1 L Sodium Potassium Chloride Carbon Dioxide BUN Creatinine Glucose POC Glucose Lactic Acid Calcium Phosphorus Magnesium Total Bilirubin Direct Bilirubin AST Total Creatine Kinase C-Reactive Protein NT-Pro-B Natriuret Pep Total Protein Albumin Arterial Blood Glucose 53 L Urine WBC (Auto) Salicylates Acetaminophen 05/24/21 05/24/21 05/24/21 05:14 05:14 09:35 WBC 23.3 H RBC 5.23 H Hgb Hct 47.3 H MCHC RDW 15.3 H Lymph % (Auto) [place] % (Auto) [place] # (Auto) Seg Neutrophils % Seg Neuts % (Manual) 12.0 L Lymphocytes % (Manual) 3.0 L Seg Neutrophils # Seg Neutrophils # Man Lymphocytes # (Manual) 0.7 L ABG pH ABG pO2 ABG HCO3 ABG O2 Saturation ABG Base Excess ABG Hemoglobin ABG Potassium ABG Glucose Oxyhemoglobin Sodium Potassium 6.3 H* D Chloride 107.3 H Carbon Dioxide 20 L BUN 33 H Creatinine 3.5 H D Glucose 56 L POC Glucose Lactic Acid Calcium Phosphorus Magnesium Total Bilirubin 1.90 H Direct Bilirubin AST Total Creatine Kinase 556 H C-Reactive Protein NT-Pro-B Natriuret Pep Total Protein 4.9 L D Albumin 2.8 L Arterial Blood Glucose Urine WBC (Auto) Salicylates Acetaminophen 05/24/21 05/24/21 05/25/21 19:45 Unknown 04:23 WBC 20.1 H RBC Hgb Hct MCHC 31 L RDW 15.5 H Lymph % (Auto) [place] % (Auto) [place] # (Auto) Seg Neutrophils % Seg Neuts % (Manual) 94.0 H Lymphocytes % (Manual) 5.0 L Seg Neutrophils # Seg Neutrophils # Man 18.9 H Lymphocytes # (Manual) 1.0 L ABG pH ABG pO2 ABG HCO3 ABG O2 Saturation ABG Base Excess ABG Hemoglobin ABG Potassium ABG Glucose Oxyhemoglobin Sodium Potassium 5.7 H Chloride 108.9 H Carbon Dioxide 21 L BUN 36 H Creatinine 2.6 H Glucose 108 H POC Glucose Lactic Acid Calcium Phosphorus Magnesium Total Bilirubin Direct Bilirubin AST Total Creatine Kinase C-Reactive Protein NT-Pro-B Natriuret Pep Total Protein Albumin Arterial Blood Glucose Urine WBC (Auto) 78.0 H Salicylates Acetaminophen 05/25/21 05/25/21 05/25/21 04:23 09:14 11:46 WBC RBC Hgb Hct MCHC RDW Lymph % (Auto) [place] % (Auto) [place] # (Auto) Seg Neutrophils % Seg Neuts % (Manual) Lymphocytes % (Manual) Seg Neutrophils # Seg Neutrophils # Man Lymphocytes # (Manual) ABG pH ABG pO2 ABG HCO3 ABG O2 Saturation ABG Base Excess ABG Hemoglobin ABG Potassium ABG Glucose Oxyhemoglobin Sodium Potassium Chloride 111.4 H Carbon Dioxide 18 L BUN 33 H Creatinine 1.9 H Glucose 121 H POC Glucose Lactic Acid 2.40 H* 2.60 H* Calcium Phosphorus Magnesium Total Bilirubin Direct Bilirubin AST Total Creatine Kinase C-Reactive Protein NT-Pro-B Natriuret Pep Total Protein Albumin Arterial Blood Glucose Urine WBC (Auto) Salicylates Acetaminophen 05/25/21 05/26/21 05/26/21 18:00 03:16 05:55 WBC 22.0 H RBC Hgb Hct MCHC RDW 15.3 H Lymph % (Auto) [place] % (Auto) [place] # (Auto) Seg Neutrophils % Seg Neuts % (Manual) 96.0 H Lymphocytes % (Manual) 2.0 L Seg Neutrophils # Seg Neutrophils # Man 21.1 H Lymphocytes # (Manual) 0.4 L ABG pH ABG pO2 208.2 H ABG HCO3 ABG O2 Saturation 99.3 H ABG Base Excess -2.7 L -2.6 L ABG Hemoglobin 13.7 L 13.0 L ABG Potassium ABG Glucose Oxyhemoglobin 94.8 L Sodium Potassium Chloride Carbon Dioxide BUN Creatinine Glucose POC Glucose Lactic Acid Calcium Phosphorus Magnesium Total Bilirubin Direct Bilirubin AST Total Creatine Kinase C-Reactive Protein NT-Pro-B Natriuret Pep Total Protein Albumin Arterial Blood Glucose Urine WBC (Auto) Salicylates Acetaminophen 05/26/21 05/27/21 05/27/21 05:55 03:18 03:18 WBC 21.5 H RBC Hgb Hct MCHC RDW 15.5 H Lymph % (Auto) [place] % (Auto) [place] # (Auto) Seg Neutrophils % Seg Neuts % (Manual) 92.0 H Lymphocytes % (Manual) 5.0 L Seg Neutrophils # Seg Neutrophils # Man 19.8 H Lymphocytes # (Manual) 1.1 L ABG pH ABG pO2 ABG HCO3 ABG O2 Saturation ABG Base Excess ABG Hemoglobin ABG Potassium ABG Glucose Oxyhemoglobin Sodium 148 H Potassium Chloride 111.3 H 113.8 H Carbon Dioxide 21 L 20 L BUN 23 H Creatinine Glucose 102 H 103 H POC Glucose Lactic Acid Calcium 8.3 L Phosphorus Magnesium Total Bilirubin 7.80 H Direct Bilirubin AST 112 H Total Creatine Kinase C-Reactive Protein NT-Pro-B Natriuret Pep Total Protein 5.2 L Albumin 2.9 L Arterial Blood Glucose Urine WBC (Auto) Salicylates Acetaminophen 05/27/21 05/28/21 05/28/21 03:18 05:55 10:05 WBC 11.4 H RBC Hgb Hct MCHC RDW 15.5 H Lymph % (Auto) 11.2 L [place] % (Auto) 8.6 H [place] # (Auto) 1.0 H Seg Neutrophils % 78.9 H Seg Neuts % (Manual) Lymphocytes % (Manual) Seg Neutrophils # 9.0 H Seg Neutrophils # Man Lymphocytes # (Manual) ABG pH ABG pO2 104.7 H ABG HCO3 ABG O2 Saturation ABG Base Excess -3.1 L ABG Hemoglobin 13.2 L ABG Potassium ABG Glucose Oxyhemoglobin Sodium Potassium Chloride Carbon Dioxide BUN Creatinine Glucose POC Glucose Lactic Acid Calcium Phosphorus Magnesium Total Bilirubin 7.90 H Direct Bilirubin 6.0 H AST 114 H Total Creatine Kinase C-Reactive Protein NT-Pro-B Natriuret Pep Total Protein 5.2 L Albumin 2.8 L Arterial Blood Glucose Urine WBC (Auto) Salicylates Acetaminophen 05/28/21 05/28/21 05/28/21 10:05 10:05 10:05 WBC RBC Hgb Hct MCHC RDW Lymph % (Auto) [place] % (Auto) [place] # (Auto) Seg Neutrophils % Seg Neuts % (Manual) Lymphocytes % (Manual) Seg Neutrophils # Seg Neutrophils # Man Lymphocytes # (Manual) ABG pH ABG pO2 ABG HCO3 ABG O2 Saturation ABG Base Excess ABG Hemoglobin ABG Potassium ABG Glucose Oxyhemoglobin Sodium 149 H Potassium Chloride 119.9 H Carbon Dioxide 18 L BUN Creatinine Glucose 103 H POC Glucose Lactic Acid 2.10 H* Calcium Phosphorus Magnesium Total Bilirubin Direct Bilirubin AST Total Creatine Kinase C-Reactive Protein 34.80 H NT-Pro-B Natriuret Pep Total Protein Albumin Arterial Blood Glucose Urine WBC (Auto) Salicylates Acetaminophen 05/29/21 05/29/21 05/29/21 03:00 05:02 05:02 WBC 13.0 H RBC Hgb Hct MCHC RDW 15.4 H Lymph % (Auto) [place] % (Auto) [place] # (Auto) Seg Neutrophils % Seg Neuts % (Manual) Lymphocytes % (Manual) Seg Neutrophils # Seg Neutrophils # Man Lymphocytes # (Manual) ABG pH ABG pO2 138.1 H ABG HCO3 ABG O2 Saturation ABG Base Excess -3.6 L ABG Hemoglobin 12.8 L ABG Potassium ABG Glucose Oxyhemoglobin Sodium 150 H Potassium Chloride 119.8 H Carbon Dioxide 18 L BUN Creatinine Glucose 109 H POC Glucose Lactic Acid Calcium Phosphorus 2.20 L Magnesium 1.50 L Total Bilirubin Direct Bilirubin AST Total Creatine Kinase C-Reactive Protein NT-Pro-B Natriuret Pep Total Protein Albumin Arterial Blood Glucose Urine WBC (Auto) Salicylates Acetaminophen 05/29/21 05/29/21 05/30/21 17:00 23:37 04:29 WBC RBC Hgb 10.8 L Hct 33.4 L MCHC RDW 15.7 H Lymph % (Auto) [place] % (Auto) [place] # (Auto) Seg Neutrophils % Seg Neuts % (Manual) Lymphocytes % (Manual) Seg Neutrophils # Seg Neutrophils # Man Lymphocytes # (Manual) ABG pH ABG pO2 ABG HCO3 ABG O2 Saturation ABG Base Excess ABG Hemoglobin ABG Potassium ABG Glucose Oxyhemoglobin Sodium Potassium Chloride Carbon Dioxide BUN Creatinine Glucose POC Glucose 114 H 122 H Lactic Acid Calcium Phosphorus Magnesium Total Bilirubin Direct Bilirubin AST Total Creatine Kinase C-Reactive Protein NT-Pro-B Natriuret Pep Total Protein Albumin Arterial Blood Glucose Urine WBC (Auto) Salicylates Acetaminophen 05/30/21 05/30/21 05/31/21 04:29 23:36 04:00 WBC 11.2 H RBC Hgb 10.9 L Hct 34.3 L MCHC RDW 15.4 H Lymph % (Auto) [place] % (Auto) [place] # (Auto) Seg Neutrophils % Seg Neuts % (Manual) Lymphocytes % (Manual) Seg Neutrophils # Seg Neutrophils # Man Lymphocytes # (Manual) ABG pH ABG pO2 ABG HCO3 ABG O2 Saturation ABG Base Excess ABG Hemoglobin ABG Potassium ABG Glucose Oxyhemoglobin Sodium Potassium 3.2 L Chloride 112.4 H Carbon Dioxide 21 L BUN Creatinine 0.7 L Glucose 128 H POC Glucose 120 H Lactic Acid Calcium Phosphorus Magnesium Total Bilirubin Direct Bilirubin AST Total Creatine Kinase C-Reactive Protein NT-Pro-B Natriuret Pep Total Protein Albumin Arterial Blood Glucose Urine WBC (Auto) Salicylates Acetaminophen 05/31/21 05/31/21 05/31/21 04:00 11:50 16:16 WBC RBC Hgb Hct MCHC RDW Lymph % (Auto) [place] % (Auto) [place] # (Auto) Seg Neutrophils % Seg Neuts % (Manual) Lymphocytes % (Manual) Seg Neutrophils # Seg Neutrophils # Man Lymphocytes # (Manual) ABG pH ABG pO2 ABG HCO3 ABG O2 Saturation ABG Base Excess ABG Hemoglobin ABG Potassium ABG Glucose Oxyhemoglobin Sodium 148 H Potassium Chloride 114.8 H Carbon Dioxide BUN Creatinine Glucose 151 H POC Glucose 123 H 107 H Lactic Acid Calcium Phosphorus Magnesium Total Bilirubin Direct Bilirubin AST Total Creatine Kinase C-Reactive Protein NT-Pro-B Natriuret Pep Total Protein Albumin Arterial Blood Glucose Urine WBC (Auto) Salicylates Acetaminophen 06/01/21 06/01/21 06/01/21 02:55 04:10 04:10 WBC 16.5 H RBC Hgb Hct MCHC RDW 16.0 H Lymph % (Auto) [place] % (Auto) [place] # (Auto) Seg Neutrophils % Seg Neuts % (Manual) Lymphocytes % (Manual) Seg Neutrophils # Seg Neutrophils # Man Lymphocytes # (Manual) ABG pH 7.334 L ABG pO2 ABG HCO3 26.1 H ABG O2 Saturation ABG Base Excess ABG Hemoglobin 12.6 L ABG Potassium ABG Glucose Oxyhemoglobin 93.1 L Sodium 148 H Potassium 3.4 L Chloride 108.8 H Carbon Dioxide BUN Creatinine Glucose 113 H POC Glucose Lactic Acid Calcium Phosphorus Magnesium Total Bilirubin Direct Bilirubin AST Total Creatine Kinase C-Reactive Protein NT-Pro-B Natriuret Pep Total Protein Albumin Arterial Blood Glucose Urine WBC (Auto) Salicylates Acetaminophen 06/01/21 06/01/21 06/02/21 12:46 15:30 05:42 WBC RBC Hgb Hct MCHC RDW Lymph % (Auto) [place] % (Auto) [place] # (Auto) Seg Neutrophils % Seg Neuts % (Manual) Lymphocytes % (Manual) Seg Neutrophils # Seg Neutrophils # Man Lymphocytes # (Manual) ABG pH ABG pO2 114.5 H 141.2 H ABG HCO3 29.6 H 30.6 H ABG O2 Saturation ABG Base Excess 4.5 H 4.1 H ABG Hemoglobin 11.8 L 12.0 L ABG Potassium ABG Glucose Oxyhemoglobin Sodium Potassium Chloride Carbon Dioxide BUN Creatinine Glucose POC Glucose 119 H Lactic Acid Calcium Phosphorus Magnesium Total Bilirubin Direct Bilirubin AST Total Creatine Kinase C-Reactive Protein NT-Pro-B Natriuret Pep Total Protein Albumin Arterial Blood Glucose Urine WBC (Auto) Salicylates Acetaminophen 06/02/21 06/02/21 07:41 07:41 WBC 17.4 H RBC Hgb 11.1 L Hct 34.3 L MCHC RDW 15.9 H Lymph % (Auto) [place] % (Auto) [place] # (Auto) Seg Neutrophils % Seg Neuts % (Manual) Lymphocytes % (Manual) Seg Neutrophils # Seg Neutrophils # Man Lymphocytes # (Manual) ABG pH ABG pO2 ABG HCO3 ABG O2 Saturation ABG Base Excess ABG Hemoglobin ABG Potassium ABG Glucose Oxyhemoglobin Sodium 150 H Potassium Chloride 111.8 H Carbon Dioxide BUN Creatinine Glucose POC Glucose Lactic Acid Calcium Phosphorus Magnesium Total Bilirubin Direct Bilirubin AST Total Creatine Kinase C-Reactive Protein NT-Pro-B Natriuret Pep Total Protein Albumin Arterial Blood Glucose Urine WBC (Auto) Salicylates Acetaminophen Allied health notes reviewed: nursing
[2021-06-02 16:04] LABS: Albumin 2.1 g/dL (3.9-5); Bilirubin,Direct 2.4 mg/dL (0-0.2)
[2021-06-02] MEDS: METOPROLOL TARTRATE 25 MG TAB PO SCH (16:14)
--- NOTE | 2021-06-02 18:14 | Progress Note ---
<NAUN RASHIDNina - Last Filed: 06/02/21 18:14> Assessment and Plan Assessment and plan: This is a 40-year-old male with HFrEF, methamphetamine and nicotine dependence admitted for drug overdose and acute metabolic encephalopathy. Patient was intubated in the emergency department for airway protection. Assessment and Plan Acute toxic metabolic encephalopathy, overdose, h/o polysubstance abuse -UDS positive for amphetamines -Sedated with Precedex,propofol and fentayl gtt -As needed Ativan and Haldol -Maintain sleep-wake cycle -Reorientation as needed -Consider mental evaluation to assess for readiness to stop polysubstance abuse Acute hypoxic respiratory failure -Intubated on 05/23 in the ED for airway protection with 7.50 ETT at 24 at the lips and extubated 05/31 -Patient reintubated on 06/01 due to tachypnea and increased work of breathing with 7.50 ETT at 24 the lips -Vent settings: AC rate 20, tidal volume 350, FiO2 50, PEEP 8 -See RT notes for titration -decrease in FiO2 -surgery consulted for peg/trach -Pulmonary hygiene -SPO2 monitoring Acute kidney injury secondary to acute tubular necrosis (resolved), hypernatremia -BUN/creatinine increased to 3.5/33 -Nephrology consulted, appreciate recommendations -Strict intake and output -Maintain Fajardo catheter -Avoid nephrotoxic medications -Renally dose medications -Trend BMP -Free water flush -Replete potassium Sepsis (POA), lactic acidosis, leukocytosis -Presented with febrile illness, lactic acidosis, leukocytosis now with hypotension -COVID-19 PCR negative -UA negative -Blood culture/urine culture no growth to date -Tracheal aspirate with beta-hemolytic strep group F -S/p ABX for 3 days -S/p vasopressor support -Monitor fever and WBC curve HFrEF, cardiomegaly - Cardiology on consult, appreciated recommendations -Per cardiology -05/25/2021: Echo- EF 20 to 25%. Severe global hypokinesis of left ventricle. Left ventricle is moderately dilated. Doppler flow suggests impaired LV relaxation. Moderate mitral regurgitation. No pericardial effusion -08/04/2020: Cardiac cath- Angiographically normal coronary arteries. This is indicative of a nonischemic cardiomyopathy. Mildly elevated biventricular f illing pressures with normal cardiac index -08/02/2020: Echo- EF 18%,Severe global LV hypokinesis. Normal LV diastolic function. LA mildly dilated. Moderate mitral regurgitation with an eccentric MR jet(s),No previous echocardiogram for comparison. -IV Lasix -Discontinued due to euvolemia and worsening renal function -midodrine tid -given 250 Lr bolus if needed for hypotension DVT/GI prophylaxis -Lovenox subcu, PPI -SCD to bilateral lower extremities while in bed -Trend CBC -Transfuse for hemoglobin less than seven The high probability of a clinically significant, sudden or life threatening deterioration of the [multiple] system(s) required my full and direct attention, intervention and personal management. The aggregate critical care time was [60] minutes. This time is in addition to time spent performing reported procedures but includes the following: [x] Data Review and interpretation [x] Patient assessment and monitoring of vital signs [x] Documentation [x] Medication orders and management Disposition Plan: ICU Total Time Spent with Patient (Minutes): 60 Disposition Plan: icu Total Time Spent with Patient (Minutes): 60 History Interval history: This is a 40-year-old male with methamphetamine and nicotine dependence who presented to the emergency department via EMS was called after the being found down and unresponsive by family. Per family patient "overdose on GHB." EMS administered intranasal Narcan without improvement in symptoms and transferred the patient to [facility] for further evaluation. Patient was intubated in the emergency department for airway protection. Patient was admitted to the hospital service with acute encephalopathy, hypothermia, respiratory failure with consults to CCM. Hospital Course to date: 05/25/2021: Worsening interstitial infiltrates. unclear if this is a developing pneumonia from aspiration/volume overload. Empiric abx coverage. ECHO with bubble study ordered. Placed on iv abx. kidney function improving. 05/26/2021: Tachycardic on levo gtt, advised RN to titrate down as long as MAP > 65. HR improved on my follow up encounter. PCCM titrating vent down. Renal function improving....Cr now 1.3. No indication for [employer] at this time per nephro. 05/27/2021: Extubated yesterday however in respiratory distress, re-intubated. Patient has severe systolic heart failure. Cardiology consulted for severe systolic heart failure. Will need to discuss optimal strategy regarding diuresis. 05/28: Patient remains on the vent. Febrile overnight, no longer on IV abx, leukocytosis improved, will panculture patient for now hold off on IV Abx. D/W CCM plan to wean sedation, depends on patient's mental status possible extubation today. Patient with low EF 20 to 25%, IVF D/nickolas. FWF for hypernatrenia, repeat lab in the am. 05/29- With increased agitation and tachycardia, maxed out on precedex and fentanyl gtt. Patient appears to be in withdrawal, Ativan added. Remains febrile, off pressors this am, leukocytosis improved. Continue to f/u on culture data. Hypernatremia this am, on D5w per nephro, electrolyte repleted, repeat labs in the am 05/30: Patient very aggresive this am maxed on sedation, X1 dose of Geodeon ordered. Now on low dose Levophed, patient still with low grade fevers this am. Hypotension is probably r/t sedation. Recent cultures with NGTD, UA negative. Continue to monitor for now. Na improved, IVF off this and K repleted, repeat labs in the am. 05/31: Patient was extubated today, IV fluid discontinued, given Lasix per cardiology, increasing free water flush. Weaned off Levophed. Patient noted to be lethargic several hours post Precedex infusion discontinuation. Patient extubated to BiPAP after given racemic epinephrine. Patient remains lethargic and off of BiPAP will consider CT head in the a.m. 06/01: Patient remained on BiPAP overnight, given agitation as needed Haldol/Ativan and Benadryl given while patient remained maxed on Precedex. Given increased work of breathing and tachypnea patient was electively reintubated. Free water flushes/tube feeding/p.o. medications to restart upon confirmation of DHT. Lasix stopped per cardiology recommendations. CT head ordered. 06/02: Started on midodrine 3 times daily per cardiology as patient has soft blood pressures and required Levophed overnight. Upper extremity with PICC noted to have significant swelling and possible discoloration around insertion site. Ordered RN to remove PICC and use peripheral IVs as patient does not have any medications requiring central access at this time. Hypernatremia worsened however patient did not receive multiple doses of free water flush while on continuous BiPAP. CCM made vent changes. Surgery consulted. Hospitalist Physical - Physical exam Narrative exam: General appearance: Present: mild distress, obese, other (Intubated and sedated) - EENT Eyes: Present: PERRL, EOM intact ENT: clear oral mucosa - Neck Neck: Present: normal ROM - Respiratory Respiratory effort: normal Respiratory: bilateral: diminished - Cardiovascular Rhythm: regular Heart Sounds: Present: S1 & S2. Absent: systolic murmur, diastolic murmur - Extremities Extremities: no ischemia, pulses intact, pulses symmetrical, No edema, normal temperature, normal color Peripheral Pulses: within normal limits - Abdominal General gastrointestinal: soft, non-tender, non-distended, normal bowel sounds - Integumentary Integumentary: Present: clear, warm, dry - Psychiatric Psychiatric: cooperative - Neurologic Neurologic: CNII-XII intact, focal deficits - Allied Health Allied health notes reviewed: nursing, RT, social work - Constitutional Vitals: Temp Pulse Resp BP Pulse Ox 98.0 F 92 H 20 91/47 98 06/02/21 12:00 06/02/21 18:00 06/02/21 17:00 06/02/21 17:00 06/02/21 17:00 General appearance: Present: mild distress, obese, other (Intubated and sedated) HEART Score - HEART Score Troponin: Troponin T < 0.010 ng/mL (0.00-0.029) 05/23/21 09:38 Results - Labs CBC & Chem 7: 06/02/21 07:41 06/02/21 07:41 Labs: Laboratory Last Values WBC 17.4 K/mm3 (4.5-11.0) H 06/02/21 07:41 RBC 3.90 M/mm3 (3.65-5.03) 06/02/21 07:41 Hgb 11.1 gm/dl (11.8-15.2) L 06/02/21 07:41 Hct 34.3 % (35.5-45.6) L 06/02/21 07:41 MCV 88 fl (84-94) 06/02/21 07:41 MCH 29 pg (28-32) 06/02/21 07:41 MCHC 32 % (32-34) 06/02/21 07:41 RDW 15.9 % (13.2-15.2) H 06/02/21 07:41 Plt Count 424 K/mm3 (140-440) 06/02/21 07:41 Lymph % (Auto) 11.2 % (13.4-35.0) L 05/28/21 10:05 [place] % (Auto) 8.6 % (0.0-7.3) H 05/28/21 10:05 Eos % (Auto) 0.8 % (0.0-4.3) 05/28/21 10:05 Baso % (Auto) 0.5 % (0.0-1.8) 05/28/21 10:05 Lymph # (Auto) 1.3 K/mm3 (1.2-5.4) 05/28/21 10:05 [place] # (Auto) 1.0 K/mm3 (0.0-0.8) H 05/28/21 10:05 Eos # (Auto) 0.1 K/mm3 (0.0-0.4) 05/28/21 10:05 Baso # (Auto) 0.1 K/mm3 (0.0-0.1) 05/28/21 10:05 Add Manual Diff Complete 05/27/21 03:18 Total Counted 100 05/27/21 03:18 Seg Neutrophils % 78.9 % (40.0-70.0) H 05/28/21 10:05 Seg Neuts % (Manual) 92.0 % (40.0-70.0) H 05/27/21 03:18 Band Neutrophils % 0 % 05/27/21 03:18 Lymphocytes % (Manual) 5.0 % (13.4-35.0) L 05/27/21 03:18 Reactive Lymphs % (Man) 0 % 05/27/21 03:18 Monocytes % (Manual) 3.0 % (0.0-7.3) 05/27/21 03:18 Eosinophils % (Manual) 0 % (0.0-4.3) 05/27/21 03:18 Basophils % (Manual) 0 % (0.0-1.8) 05/27/21 03:18 Metamyelocytes % 0 % 05/27/21 03:18 Myelocytes % 0 % 05/27/21 03:18 Promyelocytes % 0 % 05/27/21 03:18 Blast Cells % 0 % 05/27/21 03:18 Nucleated RBC % Not Reportable 05/27/21 03:18 Seg Neutrophils # 9.0 K/mm3 (1.8-7.7) H 05/28/21 10:05 Seg Neutrophils # Man 19.8 K/mm3 (1.8-7.7) H 05/27/21 03:18 Band Neutrophils # 0.0 K/mm3 05/27/21 03:18 Lymphocytes # (Manual) 1.1 K/mm3 (1.2-5.4) L 05/27/21 03:18 Abs React Lymphs (Man) 0.0 K/mm3 05/27/21 03:18 Monocytes # (Manual) 0.6 K/mm3 (0.0-0.8) 05/27/21 03:18 Eosinophils # (Manual) 0.0 K/mm3 (0.0-0.4) 05/27/21 03:18 Basophils # (Manual) 0.0 K/mm3 (0.0-0.1) 05/27/21 03:18 Metamyelocytes # 0.0 K/mm3 05/27/21 03:18 Myelocytes # 0.0 K/mm3 05/27/21 03:18 Promyelocytes # 0.0 K/mm3 05/27/21 03:18 Blast Cells # 0.0 K/mm3 05/27/21 03:18 WBC Morphology Not Reportable 05/27/21 03:18 Hypersegmented Neuts Not Reportable 05/27/21 03:18 Hyposegmented Neuts Not Reportable 05/27/21 03:18 Hypogranular Neuts Not Reportable 05/27/21 03:18 Smudge Cells Not Reportable 05/27/21 03:18 Toxic Granulation Not Reportable 05/27/21 03:18 Toxic Vacuolation Not Reportable 05/27/21 03:18 Dohle Bodies Not Reportable 05/27/21 03:18 Pelger-Huet Anomaly Not Reportable 05/27/21 03:18 Glenn Rods Not Reportable 05/27/21 03:18 Platelet Estimate Consistent w auto 05/27/21 03:18 Clumped Platelets Not Reportable 05/27/21 03:18 Plt Clumps, EDTA Not Reportable 05/27/21 03:18 Large Platelets Not Reportable 05/27/21 03:18 Giant Platelets Not Reportable 05/27/21 03:18 Platelet Satelliting Not Reportable 05/27/21 03:18 Plt Morphology Comment Not Reportable 05/27/21 03:18 RBC Morphology Normal 05/27/21 03:18 Dimorphic RBCs Not Reportable 05/27/21 03:18 Polychromasia Not Reportable 05/27/21 03:18 Hypochromasia Not Reportable 05/27/21 03:18 Poikilocytosis Not Reportable 05/27/21 03:18 Anisocytosis Not Reportable 05/27/21 03:18 Microcytosis Not Reportable 05/27/21 03:18 Macrocytosis Not Reportable 05/27/21 03:18 Spherocytes Not Reportable 05/27/21 03:18 Pappenheimer Bodies Not Reportable 05/27/21 03:18 Sickle Cells Not Reportable 05/27/21 03:18 Target Cells Not Reportable 05/27/21 03:18 Tear Drop Cells Not Reportable 05/27/21 03:18 Ovalocytes Not Reportable 05/27/21 03:18 Helmet Cells Not Reportable 05/27/21 03:18 [place] Bodies Not Reportable 05/27/21 03:18 [place] Rings Not Reportable 05/27/21 03:18 [place] Cells Not Reportable 05/27/21 03:18 Bite Cells Not Reportable 05/27/21 03:18 Crenated Cell Not Reportable 05/27/21 03:18 Elliptocytes Not Reportable 05/27/21 03:18 Acanthocytes (Spur) Not Reportable 05/27/21 03:18 Rouleaux Not Reportable 05/27/21 03:18 Hemoglobin C Crystals Not Reportable 05/27/21 03:18 Schistocytes Not Reportable 05/27/21 03:18 Malaria parasites Not Reportable 05/27/21 03:18 Frandy Bodies Not Reportable 05/27/21 03:18 Hem Pathologist Commnt No 05/27/21 03:18 ABG pH 7.367 pH Units (7.350-7.450) 06/02/21 05:42 POC ABG pCO2 41.6 mmHg (32.0-48.0) 05/24/21 03:44 ABG pCO2 54.4 mm Hg 06/02/21 05:42 POC ABG pO2 87.6 mmHg (83-108) 05/24/21 03:44 ABG pO2 141.2 mm Hg (80.0-90.0) H 06/02/21 05:42 POC ABG HCO3 17.5 05/24/21 03:44 ABG HCO3 30.6 mmol/L (20.0-26.0) H 06/02/21 05:42 ABG O2 Saturation 98.6 % (95.0-99.0) 06/02/21 05:42 ABG O2 Content 16.6 (0.0-44) 06/02/21 05:42 POC ABG Base Excess -9.5 05/24/21 03:44 ABG Base Excess 4.1 mmol/L (-2.0-3.0) H 06/02/21 05:42 ABG Hemoglobin 12.0 gm/dl (14.0-18.0) L 06/02/21 05:42 ABG Oxyhemoglobin 94.8 (94-98) 05/24/21 03:44 ABG Carboxyhemoglobin 1.5 % (0.0-5.0) 06/02/21 05:42 ABG Methemoglobin 0.5 % (0.0-1.5) 06/02/21 05:42 ABG Sodium 137.9 mmol/L (136.0-145.0) 05/24/21 03:44 ABG Potassium 5.6 mmol/L (3.40-4.50) H 05/24/21 03:44 ABG Chloride 105.0 mmol/L (98-107) 05/24/21 03:44 ABG Glucose 53 mg/dL (65-95) L 05/24/21 03:44 Oxyhemoglobin 96.7 % (95.0-99.0) 06/02/21 05:42 Carboxyhemoglobin 0.8 (0.5-1.5) 05/24/21 03:44 FiO2 50 % 06/02/21 05:42 FiO2 % 100.0 05/24/21 03:44 Sodium 150 mmol/L (137-145) H 06/02/21 07:41 Potassium 3.8 mmol/L (3.6-5.0) 06/02/21 07:41 Chloride 111.8 mmol/L (98-107) H 06/02/21 07:41 Carbon Dioxide 28 mmol/L (22-30) 06/02/21 07:41 Anion Gap 14 mmol/L 06/02/21 07:41 BUN 13 mg/dL (9-20) 06/02/21 07:41 Creatinine 0.8 mg/dL (0.8-1.3) 06/02/21 07:41 Estimated GFR > 60 ml/min 06/02/21 07:41 BUN/Creatinine Ratio 16 % 06/02/21 07:41 Glucose 93 mg/dL (75-100) 06/02/21 07:41 POC Glucose 94 mg/dL (70-105) 06/02/21 17:18 Lactic Acid 2.10 mmol/L (0.7-2.0) H* 05/28/21 10:05 Calcium 8.8 mg/dL (8.4-10.2) 06/02/21 07:41 Phosphorus 3.00 mg/dL (2.5-4.5) 06/02/21 07:41 Magnesium 1.70 mg/dL (1.7-2.3) 06/02/21 07:41 Total Bilirubin 3.30 mg/dL (0.1-1.2) H 06/02/21 07:41 Direct Bilirubin 2.4 mg/dL (0-0.2) H 06/02/21 07:41 Indirect Bilirubin 0.9 mg/dL 06/02/21 07:41 AST 48 units/L (5-40) H 06/02/21 07:41 ALT 33 units/L (7-56) 06/02/21 07:41 Alkaline Phosphatase 117 units/L (35-129) 06/02/21 07:41 Total Creatine Kinase 556 units/L (55-170) H 05/24/21 09:35 Troponin T < 0.010 ng/mL (0.00-0.029) 05/23/21 09:38 C-Reactive Protein 34.80 mg/dL (0.00-1.30) H 05/28/21 10:05 NT-Pro-B Natriuret Pep 6058 pg/mL (0-450) H 05/23/21 09:38 Total Protein 6.1 g/dL (6.3-8.2) L 06/02/21 07:41 Albumin 2.1 g/dL (3.9-5) L 06/02/21 07:41 Albumin/Globulin Ratio 0.5 % 06/02/21 07:41 Procalcitonin 12.51 ng/mL (<0.15) 05/28/21 10:05 Arterial Blood Glucose 53 mg/dL (65-95) L 05/24/21 03:44 Arterial Blood Ionized Calcium 4.6 mg/dL (4.6-5.3) 05/24/21 03:44 Urine Color Sherri (Yellow) 05/28/21 12:20 Urine Turbidity Clear (Clear) 05/28/21 12:20 Urine pH 6.0 (5.0-7.0) 05/28/21 12:20 Ur Specific [place] 1.017 (1.003-1.030) 05/28/21 12:20 Urine Protein 30 mg/dl mg/dL (Negative) 05/28/21 12:20 Urine Glucose (UA) Neg mg/dL (Negative) 05/28/21 12:20 Urine Ketones Neg mg/dL (Negative) 05/28/21 12:20 Urine Blood Mod (Negative) 05/28/21 12:20 Urine Nitrite Neg (Negative) 05/28/21 12:20 Urine Bilirubin Mod (Negative) 05/28/21 12:20 Urine Ictotest Positive (Negative) 05/28/21 12:20 Urine Urobilinogen 4.0 mg/dL (<2.0) 05/28/21 12:20 Ur Leukocyte Esterase Neg (Negative) 05/28/21 12:20 Urine WBC (Auto) 3.0 /HPF (0.0-6.0) 05/28/21 12:20 Urine RBC (Auto) 4.0 /HPF (0.0-6.0) 05/28/21 12:20 U Epithel Cells (Auto) < 1.0 /HPF (0-13.0) 05/28/21 12:20 Urine Bacteria (Auto) 1+ /HPF (Negative) 05/28/21 12:20 Urine Mucus Few /HPF 05/28/21 12:20 Urine Yeast (Budding) 1+ /HPF 05/24/21 Unknown Salicylates < 0.3 mg/dL (2.8-20.0) L 05/23/21 09:38 Urine Opiates Screen Negative 05/23/21 09:41 Urine Methadone Screen Negative 05/23/21 09:41 Acetaminophen 5.0 ug/mL (10.0-30.0) L 05/23/21 09:38 Ur Barbiturates Screen Negative 05/23/21 09:41 Ur Phencyclidine Scrn Negative 05/23/21 09:41 Ur Amphetamines Screen Positive 05/23/21 09:41 U Benzodiazepines Scrn Negative 05/23/21 09:41 Urine Cocaine Screen Negative 05/23/21 09:41 U Marijuana (THC) Screen Negative 05/23/21 09:41 Drugs of Abuse Note Disclamer 05/23/21 09:41 Coronavirus (PCR) Negative (Negative) 05/26/21 08:14 Hepatitis A IgM Ab Non-reactive (NonReactive) 05/27/21 16:00 Hep Bs Antigen Non-reactive (Negative) 05/27/21 16:00 Hep B Core IgM Ab Non-reactive (NonReactive) 05/27/21 16:00 Hepatitis C Antibody Non-reactive (NonReactive) 05/27/21 16:00 Microbiology: Microbiology 06/01/21 12:25 Tracheal Aspirate Sputum Culture - Preliminary 05/28/21 10:05 Peripheral/Venous Blood Culture - Final NO GROWTH AFTER 5 DAYS 05/28/21 10:05 Peripheral/Venous Blood Culture - Final NO GROWTH AFTER 5 DAYS Fajardo/IV: Voiding Method Indwelling Catheter Active Medications - Current Medications Current Medications: Generic Name Dose Route Start Last Admin Trade Name Freq PRN Reason Stop Dose Admin Acetaminophen 650 mg 05/23/21 11:43 05/31/21 03:22 Acetaminophen 650 Mg Rect Supp NV 650 mg Q6H PRN Administration Pain MILD(1-3)/Fever >100.5/EPSTEIN Lipase/Protease/Amylase 1 each 05/29/21 08:45 Lipase 10,500/Protease 25,000/Amylase 43,750 (Units) Cap FEEDTUBE PRN PRN For Clogged Feeding Tube Dextrose 0 ml 05/31/21 10:47 Dextrose 10% *Hypoglycemia IV PRN PRN Hypoglycemia Enoxaparin Sodium 40 mg 05/28/21 15:00 06/02/21 09:29 Enoxaparin 40 Mg/0.4 Ml Inj SUB-Q 40 mg QDAY@1000 MARK Administration Famotidine 40 mg 06/02/21 22:00 Famotidine 20 Mg Tab FEEDTUBE QHS MARK Fentanyl 50 mcg 06/01/21 12:29 Fentanyl 100 Mcg/2 Ml Inj IV Q10MIN PRN ANALGESIA Haloperidol Lactate 5 mg 05/30/21 12:18 06/01/21 09:27 Haloperidol Lactate 5 Mg/1 Ml Inj IV 5 mg Q6H PRN Administration Agitation Hydrophilic Ointment 1 applic 06/01/21 12:30 Lip Therapy Vaseline TP Q2HR PRN Dry Lips Dexmedetomidine HCl 400 mcg/ 104 mls @ 5.307 mls/hr 05/24/21 05:00 06/02/21 17:34 Sodium Chloride IV 0.8 mcg/kg/hr TITRATE MARK 21.228 mls/hr Titration Protocol 0.2 MCG/KG/HR Fentanyl Citrate 2,000 mcg in 100 mls @ 5.103 mls/hr 06/01/21 13:00 06/02/21 16:13 Fentanyl Drip Premix IV 4 mcg/kg/hr TITR MARK 20.412 mls/hr Administration Protocol 1 MCG/KG/HR Propofol 1,000 mg in 100 mls @ 3.062 mls/hr 06/01/21 12:10 06/02/21 17:33 Diprivan 10 Mg/Ml IV 30 mcg/kg/min TITR MARK 18.37 mls/hr Administration Protocol 5 MCG/KG/MIN Lorazepam 2 mg 05/31/21 11:00 06/01/21 07:44 Lorazepam 2 Mg/Ml Vial IV 2 mg Q4H PRN Administration Agitation Metoprolol Tartrate 12.5 mg 06/01/21 22:00 06/02/21 16:14 Metoprolol Tartrate 25 Mg Tab PO Not Given BID MARK Midodrine 5 mg 06/02/21 12:00 06/02/21 16:13 Midodrine 5 Mg Tab PO 5 mg TID@0800,1200,1600 [facility] Administration Multi-Ingred Cream/Lotion/Oil/Oint 1 applic 06/01/21 12:30 Mineral Oil/Petrolatum, White Ophth Oint 3.5 Gm OU Q4HR PRN Dry Eye(s) Ondansetron HCl 4 mg 05/23/21 11:43 Ondansetron 4 Mg/2 Ml Inj IV Q8H PRN Nausea And Vomiting Senna/Docusate Sodium 1 tab 06/01/21 22:00 06/02/21 09:28 Sennosides/Docusate Sodium 8.6/50 Mg Tab FEEDTUBE 1 tab BID MARK Administration Simple Syrup 15 ml 05/29/21 08:45 Simple Syrup 15 Ml FEEDTUBE PRN PRN Hypoglycemia Simple Syrup 30 ml 05/29/21 08:45 Simple Syrup 15 Ml FEEDTUBE PRN PRN Hypoglycemia Sodium Bicarbonate 325 mg 05/29/21 08:45 Sodium Bicarbonate 325 Mg Tab FEEDTUBE PRN PRN For Clogged Feeding Tube Sodium Chloride 10 ml 05/23/21 22:00 06/02/21 09:30 Sodium Chloride 0.9% 10 Ml Flush Syringe IV 10 ml BID MARK Administration Sodium Chloride 10 ml 05/23/21 11:43 Sodium Chloride 0.9% 10 Ml Flush Syringe IV PRN PRN LINE FLUSH Sodium Chloride 10 ml 05/31/21 09:50 06/01/21 12:32 Sodium Chloride 0.9% 50 Ml Ivpb IV 10 ml PRN PRN Administration FLUSH Vitamin B Complex/Folic Acid 1 each 05/30/21 10:00 06/02/21 09:28 Folbee Plus Cz (Folic Acid/Vit Bcomp&C/Cu/Znox) PO 1 each QDAY MARK Administration Nutrition/Malnutrition Assess - Dietary Evaluation Nutrition/Malnutrition Findings: Nutrition Notes Start: 05/28/21 12:16 Freq: Status: Active Protocol: Document 05/31/21 15:28 GREGG (Rec: 05/31/21 15:51 GREGG [id number]) Nutrition Notes Initial or Follow up Brief Note Current Diet TF-Vital HP @ 70 ml/hr (since D 05/31). Height 6 ft Weight 102.058 kg Reading Body Weight (kg) 80.90 BMI 30.5 Weight change and time frame No body weight change in 2 days reported. Subjective/Other Information RD consult for routine F/u on TF tolerance. Pt extubated from mechanical ventilation, now on Bi-PaP+ tolerating well. TF continues as prescribed. Percent of energy/protein needs met: Prescribed Vital HP @ 70 ml/hr provides for energy/protein needs (1,655 Kcal/145 g) during LOS, 70% Kcal; 89% AA. #1 Nutrition Diagnosis Inadequate oral intake Diagnosis Progress(for reassessment Continues documentation) Is patient on ventilator? Yes Is Patient Ambulatory and/or Out of Bed No REE-([facility]-confined to bed) [phone] Calculation Used for Recommendations 65-70% energy needs Additional Notes Energy needs: 0287-0906 kcal/ day Pro needs 2g/kg IBW: 162g/day Fluid needs 1ml/kcal Nutrition Intervention Nutrition Support: Continue Vital HP @ 70 ml/hr. Flush: 170 ml water Q 4 hr, or as per MD. Kcal 1,655 Protein (gm) 145 Carbohydrates (gm) 185 Fat (gm) 38 Fluid (mL) 1,384 Fiber (gm) 0 % RDI: 70% Kcal; 89% AA. Goal #1 Provide at least 75% of energy /protein needs through Enteral Feeding during LOS. Goal #2 Maintain body weight within +/ -3% of admission body weight during LOS. Follow-Up By: 06/07/21 Additional Comments Continue monitoring TF tolerance and BM. <MAVIS CARVALHO - Last Filed: 06/14/21 18:51> Assessment and Plan Assessment and plan: I saw and evaluated the patient. Discussed with the nurse practitioner and agree with their findings and plan as documented in this note. Hospitalist Physical - Constitutional Vitals: Temp Pulse Resp BP Pulse Ox 99.9 F H 101 H 25 H 129/57 99 06/10/21 12:00 06/10/21 16:30 06/10/21 16:30 06/10/21 16:30 06/10/21 16:57 HEART Score - HEART Score Troponin: Troponin T < 0.010 ng/mL (0.00-0.029) 05/23/21 09:38 Results - Labs CBC & Chem 7: 06/10/21 05:53 06/10/21 05:53 Labs: Laboratory Last Values WBC 10.8 K/mm3 (4.5-11.0) 06/10/21 05:53 RBC 3.68 M/mm3 (3.65-5.03) 06/10/21 05:53 Hgb 10.3 gm/dl (11.8-15.2) L 06/10/21 05:53 Hct 31.7 % (35.5-45.6) L 06/10/21 05:53 MCV 86 fl (84-94) 06/10/21 05:53 MCH 28 pg (28-32) 06/10/21 05:53 MCHC 32 % (32-34) 06/10/21 05:53 RDW 16.5 % (13.2-15.2) H 06/10/21 05:53 Plt Count 527 K/mm3 (140-440) H 06/10/21 05:53 Lymph % (Auto) 11.2 % (13.4-35.0) L 05/28/21 10:05 [place] % (Auto) 8.6 % (0.0-7.3) H 05/28/21 10:05 Eos % (Auto) 0.8 % (0.0-4.3) 05/28/21 10:05 Baso % (Auto) 0.5 % (0.0-1.8) 05/28/21 10:05 Lymph # (Auto) 1.3 K/mm3 (1.2-5.4) 05/28/21 10:05 [place] # (Auto) 1.0 K/mm3 (0.0-0.8) H 05/28/21 10:05 Eos # (Auto) 0.1 K/mm3 (0.0-0.4) 05/28/21 10:05 Baso # (Auto) 0.1 K/mm3 (0.0-0.1) 05/28/21 10:05 Add Manual Diff Complete 05/27/21 03:18 Total Counted 100 05/27/21 03:18 Seg Neutrophils % 78.9 % (40.0-70.0) H 05/28/21 10:05 Seg Neuts % (Manual) 92.0 % (40.0-70.0) H 05/27/21 03:18 Band Neutrophils % 0 % 05/27/21 03:18 Lymphocytes % (Manual) 5.0 % (13.4-35.0) L 05/27/21 03:18 Reactive Lymphs % (Man) 0 % 05/27/21 03:18 Monocytes % (Manual) 3.0 % (0.0-7.3) 05/27/21 03:18 Eosinophils % (Manual) 0 % (0.0-4.3) 05/27/21 03:18 Basophils % (Manual) 0 % (0.0-1.8) 05/27/21 03:18 Metamyelocytes % 0 % 05/27/21 03:18 Myelocytes % 0 % 05/27/21 03:18 Promyelocytes % 0 % 05/27/21 03:18 Blast Cells % 0 % 05/27/21 03:18 Nucleated RBC % Not Reportable 05/27/21 03:18 Seg Neutrophils # 9.0 K/mm3 (1.8-7.7) H 05/28/21 10:05 Seg Neutrophils # Man 19.8 K/mm3 (1.8-7.7) H 05/27/21 03:18 Band Neutrophils # 0.0 K/mm3 05/27/21 03:18 Lymphocytes # (Manual) 1.1 K/mm3 (1.2-5.4) L 05/27/21 03:18 Abs React Lymphs (Man) 0.0 K/mm3 05/27/21 03:18 Monocytes # (Manual) 0.6 K/mm3 (0.0-0.8) 05/27/21 03:18 Eosinophils # (Manual) 0.0 K/mm3 (0.0-0.4) 05/27/21 03:18 Basophils # (Manual) 0.0 K/mm3 (0.0-0.1) 05/27/21 03:18 Metamyelocytes # 0.0 K/mm3 05/27/21 03:18 Myelocytes # 0.0 K/mm3 05/27/21 03:18 Promyelocytes # 0.0 K/mm3 05/27/21 03:18 Blast Cells # 0.0 K/mm3 05/27/21 03:18 WBC Morphology Not Reportable 05/27/21 03:18 Hypersegmented Neuts Not Reportable 05/27/21 03:18 Hyposegmented Neuts Not Reportable 05/27/21 03:18 Hypogranular Neuts Not Reportable 05/27/21 03:18 Smudge Cells Not Reportable 05/27/21 03:18 Toxic Granulation Not Reportable 05/27/21 03:18 Toxic Vacuolation Not Reportable 05/27/21 03:18 Dohle Bodies Not Reportable 05/27/21 03:18 Pelger-Huet Anomaly Not Reportable 05/27/21 03:18 Glenn Rods Not Reportable 05/27/21 03:18 Platelet Estimate Consistent w auto 05/27/21 03:18 Clumped Platelets Not Reportable 05/27/21 03:18 Plt Clumps, EDTA Not Reportable 05/27/21 03:18 Large Platelets Not Reportable 05/27/21 03:18 Giant Platelets Not Reportable 05/27/21 03:18 Platelet Satelliting Not Reportable 05/27/21 03:18 Plt Morphology Comment Not Reportable 05/27/21 03:18 RBC Morphology Normal 05/27/21 03:18 Dimorphic RBCs Not Reportable 05/27/21 03:18 Polychromasia Not Reportable 05/27/21 03:18 Hypochromasia Not Reportable 05/27/21 03:18 Poikilocytosis Not Reportable 05/27/21 03:18 Anisocytosis Not Reportable 05/27/21 03:18 Microcytosis Not Reportable 05/27/21 03:18 Macrocytosis Not Reportable 05/27/21 03:18 Spherocytes Not Reportable 05/27/21 03:18 Pappenheimer Bodies Not Reportable 05/27/21 03:18 Sickle Cells Not Reportable 05/27/21 03:18 Target Cells Not Reportable 05/27/21 03:18 Tear Drop Cells Not Reportable 05/27/21 03:18 Ovalocytes Not Reportable 05/27/21 03:18 Helmet Cells Not Reportable 05/27/21 03:18 [place] Bodies Not Reportable 05/27/21 03:18 [place] Rings Not Reportable 05/27/21 03:18 Giorgio Cells Not Reportable 05/27/21 03:18 Bite Cells Not Reportable 05/27/21 03:18 Crenated Cell Not Reportable 05/27/21 03:18 Elliptocytes Not Reportable 05/27/21 03:18 Acanthocytes (Spur) Not Reportable 05/27/21 03:18 Rouleaux Not Reportable 05/27/21 03:18 Hemoglobin C Crystals Not Reportable 05/27/21 03:18 Schistocytes Not Reportable 05/27/21 03:18 Malaria parasites Not Reportable 05/27/21 03:18 Frandy Bodies Not Reportable 05/27/21 03:18 Hem Pathologist Commnt No 05/27/21 03:18 PT 14.2 Sec. (12.2-14.9) 06/07/21 10:50 INR 0.99 (0.87-1.13) 06/07/21 10:50 APTT 36.1 Sec. (24.2-36.6) 06/03/21 Unknown Heparin Anti-Xa Level 0.34 U.I./ml (0.3-0.7) 06/07/21 10:50 ABG pH 7.406 (7.320-7.450) 06/04/21 04:00 POC ABG pCO2 51.5 mmHg (32.0-48.0) H 06/04/21 04:00 ABG pCO2 54.4 mm Hg 06/02/21 05:42 POC ABG pO2 61.7 mmHg (83-108) L 06/04/21 04:00 ABG pO2 141.2 mm Hg (80.0-90.0) H 06/02/21 05:42 POC ABG HCO3 31.6 06/04/21 04:00 ABG HCO3 30.6 mmol/L (20.0-26.0) H 06/02/21 05:42 ABG O2 Saturation 92.7 (0-100) 06/04/21 04:00 ABG O2 Content 16.6 (0.0-44) 06/02/21 05:42 POC ABG Base Excess 5.7 06/04/21 04:00 ABG Base Excess 4.1 mmol/L (-2.0-3.0) H 06/02/21 05:42 ABG Hemoglobin 12.7 (12.0-17.5) 06/04/21 04:00 ABG Oxyhemoglobin 90.9 (94-98) L 06/04/21 04:00 ABG Carboxyhemoglobin 1.5 % (0.0-5.0) 06/02/21 05:42 ABG Methemoglobin 0.3 (0.0-1.5) 06/04/21 04:00 ABG Sodium 137.9 mmol/L (136.0-145.0) 05/24/21 03:44 ABG Potassium 5.6 mmol/L (3.40-4.50) H 05/24/21 03:44 ABG Chloride 105.0 mmol/L (98-107) 05/24/21 03:44 ABG Glucose 53 mg/dL (65-95) L 05/24/21 03:44 Oxyhemoglobin 96.7 % (95.0-99.0) 06/02/21 05:42 Carboxyhemoglobin 1.6 (0.5-1.5) H 06/04/21 04:00 FiO2 50 % 06/02/21 05:42 FiO2 % 35.0 06/04/21 04:00 Sodium 142 mmol/L (137-145) 06/10/21 05:53 Potassium 3.9 mmol/L (3.6-5.0) 06/10/21 05:53 Chloride 106.8 mmol/L (98-107) 06/10/21 05:53 Carbon Dioxide 28 mmol/L (22-30) 06/10/21 05:53 Anion Gap 11 mmol/L 06/10/21 05:53 BUN 13 mg/dL (9-20) 06/10/21 05:53 Creatinine 0.6 mg/dL (0.8-1.3) L 06/10/21 05:53 Creatinine 0.6 mg/dL (0.8-1.3) L 06/10/21 05:53 Estimated GFR > 60 ml/min 06/10/21 05:53 Estimated GFR > 60 ml/min 06/10/21 05:53 BUN/Creatinine Ratio 22 % 06/10/21 05:53 Glucose 128 mg/dL (75-100) H 06/10/21 05:53 POC Glucose 135 mg/dL (70-105) H 06/10/21 12:16 Lactic Acid 2.10 mmol/L (0.7-2.0) H* 05/28/21 10:05 Calcium 8.9 mg/dL (8.4-10.2) 06/10/21 05:53 Phosphorus 3.90 mg/dL (2.5-4.5) D 06/10/21 05:53 Magnesium 1.80 mg/dL (1.7-2.3) 06/10/21 05:53 Total Bilirubin 2.90 mg/dL (0.1-1.2) H 06/02/21 20:00 Direct Bilirubin 2.4 mg/dL (0-0.2) H 06/02/21 07:41 Indirect Bilirubin 0.9 mg/dL 06/02/21 07:41 AST 53 units/L (5-40) H 06/02/21 20:00 ALT 30 units/L (7-56) 06/02/21 20:00 Alkaline Phosphatase 115 units/L (35-129) 06/02/21 20:00 Total Creatine Kinase 556 units/L (55-170) H 05/24/21 09:35 Troponin T < 0.010 ng/mL (0.00-0.029) 05/23/21 09:38 C-Reactive Protein 34.80 mg/dL (0.00-1.30) H 05/28/21 10:05 NT-Pro-B Natriuret Pep 6058 pg/mL (0-450) H 05/23/21 09:38 Total Protein 6.2 g/dL (6.3-8.2) L 06/02/21 20:00 Albumin 1.8 g/dL (3.9-5) L 06/02/21 20:00 Albumin/Globulin Ratio 0.4 % 06/02/21 20:00 Triglycerides 142 mg/dL (2-149) 06/07/21 Unknown Procalcitonin 0.25 ng/mL (<0.15) 06/08/21 04:42 Arterial Blood Glucose 53 mg/dL (65-95) L 05/24/21 03:44 Arterial Blood Ionized Calcium 4.6 mg/dL (4.6-5.3) 05/24/21 03:44 Urine Color Sherri (Yellow) 05/28/21 12:20 Urine Turbidity Clear (Clear) 05/28/21 12:20 Urine pH 6.0 (5.0-7.0) 05/28/21 12:20 Ur Specific [place] 1.017 (1.003-1.030) 05/28/21 12:20 Urine Protein 30 mg/dl mg/dL (Negative) 05/28/21 12:20 Urine Glucose (UA) Neg mg/dL (Negative) 05/28/21 12:20 Urine Ketones Neg mg/dL (Negative) 05/28/21 12:20 Urine Blood Mod (Negative) 05/28/21 12:20 Urine Nitrite Neg (Negative) 05/28/21 12:20 Urine Bilirubin Mod (Negative) 05/28/21 12:20 Urine Ictotest Positive (Negative) 05/28/21 12:20 Urine Urobilinogen 4.0 mg/dL (<2.0) 05/28/21 12:20 Ur Leukocyte Esterase Neg (Negative) 05/28/21 12:20 Urine WBC (Auto) 3.0 /HPF (0.0-6.0) 05/28/21 12:20 Urine RBC (Auto) 4.0 /HPF (0.0-6.0) 05/28/21 12:20 U Epithel Cells (Auto) < 1.0 /HPF (0-13.0) 05/28/21 12:20 Urine Bacteria (Auto) 1+ /HPF (Negative) 05/28/21 12:20 Urine Mucus Few /HPF 05/28/21 12:20 Urine Yeast (Budding) 1+ /HPF 05/24/21 Unknown Salicylates < 0.3 mg/dL (2.8-20.0) L 05/23/21 09:38 Urine Opiates Screen Negative 05/23/21 09:41 Urine Methadone Screen Negative 05/23/21 09:41 Acetaminophen 5.0 ug/mL (10.0-30.0) L 05/23/21 09:38 Ur Barbiturates Screen Negative 05/23/21 09:41 Ur Phencyclidine Scrn Negative 05/23/21 09:41 Ur Amphetamines Screen Positive 05/23/21 09:41 U Benzodiazepines Scrn Negative 05/23/21 09:41 Urine Cocaine Screen Negative 05/23/21 09:41 U Marijuana (THC) Screen Negative 05/23/21 09:41 Drugs of Abuse Note Disclamer 05/23/21 09:41 Coronavirus (PCR) Negative (Negative) 05/26/21 08:14 Hepatitis A IgM Ab Non-reactive (NonReactive) 05/27/21 16:00 Hep Bs Antigen Non-reactive (Negative) 05/27/21 16:00 Hep B Core IgM Ab Non-reactive (NonReactive) 05/27/21 16:00 Hepatitis C Antibody Non-reactive (NonReactive) 05/27/21 16:00 Fajardo/IV: Voiding Method Indwelling Catheter Nutrition/Malnutrition Assess - Dietary Evaluation Nutrition/Malnutrition Findings: Nutrition Notes Start: 05/28/21 12:16 Freq: Status: Discharge Protocol: Document 06/07/21 15:07 YURI (Rec: 06/07/21 15:17 YURI [id number]) Nutrition Notes Initial or Follow up Reassessment Current Diagnosis Heart Failure,Respiratory Failure Other Pertinent Diagnosis Acute encephalopathy, Overdose , Methamphetamine dependence Current Diet TF - Vital HP at 70ml/hr Labs/Tests Phos 2.3 Pertinent Medications Lasix, 15mmol KPhos x 1 dose, Vit B complex/Folic acid Height 6 ft Weight 102.058 kg Reading Body Weight (kg) 80.90 BMI 30.5 Weight Status Obese Subjective/Other Information Pt remains on vent support. Per RN, pt tolerating TF at goal rate and currently receiving 200ml water flush q4h. PEG and trach placed on 06/04. Percent of energy/protein needs met: 71% energy 91% pro Burn Absent Trauma Absent #1 Nutrition Diagnosis Inadequate oral intake Diagnosis Progress(for reassessment Continues documentation) Is patient on ventilator? Yes Is Patient Ambulatory and/or Out of Bed No REE-([facility]-confined to bed) 2364.912 Calculation Used for Recommendations 65-70% energy needs Additional Notes Energy needs: 8101-6410 kcal/ day Pro needs 2g/kg IBW: 162g/day Fluid needs 1ml/kcal Nutrition Intervention Nutrition Support: Continue Vital HP at 70 ml/hr. Continue 200ml water flush q4h until hypernatremia resolves; then provide 50ml water flush q4h. Kcal 1,680 Protein (gm) 147 Carbohydrates (gm) 188 Fat (gm) 39 Fluid (mL) 1,404 Fiber (gm) 0 Goal #1 TF tolerance Goal #2 TF to meet 65-70% energy and at least 75% pro needs Follow-Up By: 06/11/21 Additional Comments F/U: Vent status, Na lab/water flush
[2021-06-02] MEDS ORDERED: LACTATED RINGERS 1000 ML IV SOLN IV SCH (18:30)
[2021-06-02 20:44] LABS: Alanine Aminotransferase 30 units/L (7-56); Albumin 1.8 g/dL (3.9-5); Blood Urea Nitrogen 15 mg/dL (9-20); Calcium 8.3 mg/dL (8.4-10.2); Hemolysis Index 69
--- NOTE | 2021-06-02 20:44 | Consultation ---
History of Present Illness Consult date: 06/02/21 Reason for consult: other (respiratory insufficiency and dysphagia) - History of present illness History of present illness: This is a 40 yo male admitted after overdose. Pt has been intubated and extubated several times since his admission 20 days ago. ICU intensivists are requesting a tracheostomy and peg tube placement. Past History Past Medical History: heart failure, other (See HPI) Past Surgical History: No surgical history, Other (Reviewed) Social history: single. denies: smoking Family history: hypertension Medications and Allergies Allergies Allergy/AdvReac Type Severity Reaction Status Date / Time No Known Allergies Allergy Verified 05/26/21 10:09 Home Medications Medication Instructions Recorded Confirmed Last Taken Type Unobtainable 09/13/13 09/13/13 Unknown History Active Meds: Active Medications Acetaminophen (Acetaminophen 650 Mg Rect Supp) 650 mg IN Q6H PRN PRN Reason: Pain MILD(1-3)/Fever >100.5/EPSTEIN Last Admin: 05/31/21 03:22 Dose: 650 mg Lipase/Protease/Amylase (Lipase 10,500/Protease 25,000/Amylase 43,750 (Units) Dr Cap) 1 each FEEDTUBE PRN PRN PRN Reason: For Clogged Feeding Tube Dextrose (Dextrose 10% *Hypoglycemia) 0 ml IV PRN PRN PRN Reason: Hypoglycemia Enoxaparin Sodium (Enoxaparin 40 Mg/0.4 Ml Inj) 40 mg SUB-Q QDAY@1000 MARK Last Admin: 06/02/21 09:29 Dose: 40 mg Famotidine (Famotidine 20 Mg Tab) 40 mg FEEDTUBE QHS MARK Fentanyl (Fentanyl 100 Mcg/2 Ml Inj) 50 mcg IV Q10MIN PRN PRN Reason: ANALGESIA Haloperidol Lactate (Haloperidol Lactate 5 Mg/1 Ml Inj) 5 mg IV Q6H PRN PRN Reason: Agitation Last Admin: 06/01/21 09:27 Dose: 5 mg Hydrophilic Ointment (Lip Therapy Vaseline) 1 applic TP Q2HR PRN PRN Reason: Dry Lips Dexmedetomidine HCl 400 mcg/ (Sodium Chloride) 104 mls @ 5.307 mls/hr IV TITRATE MARK; Protocol Last Admin: 06/02/21 18:20 Dose: 1.4 mcg/kg/hr, 37.149 mls/hr Fentanyl Citrate (Fentanyl Drip Premix) 2,000 mcg in 100 mls @ 5.103 mls/hr IV TITR MARK; Protocol Last Admin: 06/02/21 16:13 Dose: 4 mcg/kg/hr, 20.412 mls/hr Propofol (Diprivan 10 Mg/Ml) 1,000 mg in 100 mls @ 3.062 mls/hr IV TITR MARK; Protocol Last Titration: 06/02/21 19:51 Dose: 33 mcg/kg/min, 20.207 mls/hr Lactated Ringer's (Lactated Ringers 1000 Ml Iv Soln) 250 ml IV DIRECT MARK Lorazepam (Lorazepam 2 Mg/Ml Vial) 2 mg IV Q4H PRN PRN Reason: Agitation Last Admin: 06/01/21 07:44 Dose: 2 mg Midodrine (Midodrine 5 Mg Tab) 5 mg PO TID@0800,1200,1600 [facility] Last Admin: 06/02/21 16:13 Dose: 5 mg Multi-Ingred Cream/Lotion/Oil/Oint (Mineral Oil/Petrolatum, White Ophth Oint 3.5 Gm) 1 applic OU Q4HR PRN PRN Reason: Dry Eye(s) Ondansetron HCl (Ondansetron 4 Mg/2 Ml Inj) 4 mg IV Q8H PRN PRN Reason: Nausea And Vomiting Senna/Docusate Sodium (Sennosides/Docusate Sodium 8.6/50 Mg Tab) 1 tab FEEDTUBE BID [facility] Last Admin: 06/02/21 09:28 Dose: 1 tab Simple Syrup (Simple Syrup 15 Ml) 15 ml FEEDTUBE PRN PRN PRN Reason: Hypoglycemia Simple Syrup (Simple Syrup 15 Ml) 30 ml FEEDTUBE PRN PRN PRN Reason: Hypoglycemia Sodium Bicarbonate (Sodium Bicarbonate 325 Mg Tab) 325 mg FEEDTUBE PRN PRN PRN Reason: For Clogged Feeding Tube Sodium Chloride (Sodium Chloride 0.9% 10 Ml Flush Syringe) 10 ml IV BID [facility] Last Admin: 06/02/21 09:30 Dose: 10 ml Sodium Chloride (Sodium Chloride 0.9% 10 Ml Flush Syringe) 10 ml IV PRN PRN PRN Reason: LINE FLUSH Sodium Chloride (Sodium Chloride 0.9% 50 Ml Ivpb) 10 ml IV PRN PRN PRN Reason: FLUSH Last Admin: 06/01/21 12:32 Dose: 10 ml Vitamin B Complex/Folic Acid ([place] Plus Cz (Folic Acid/Vit Bcomp&C/Cu/Znox)) 1 each PO QDAY MARK Last Admin: 06/02/21 09:28 Dose: 1 each Review of Systems ROS unobtainable: due to endotracheal tube Exam Vital Signs Pulse Resp BP Pulse Ox 84 27 H 130/96 87 05/23/21 09:22 05/23/21 09:22 05/23/21 09:22 05/23/21 09:22 - General physical appearance Positive: other (intubated and unresponsive) - Neck Positive: no masses, no bruits, trachea midline - Respiratory Positive: normal expansion - Cardiovascular Rhythm: regular - Extremities Extremities: no ischemia, No edema - Abdomen Abdomen: Present: soft - Integumentary no rash - Neurologic Neurologic: other (sedated onvent) Results - Labs 06/02/21 07:41 06/02/21 07:41 Abnormal lab results 06/02/21 06/02/21 06/02/21 Range/Units 05:42 07:41 07:41 WBC 17.4 H (4.5-11.0) K/mm3 Hgb 11.1 L (11.8-15.2) gm/dl Hct 34.3 L (35.5-45.6) % RDW 15.9 H (13.2-15.2) % ABG pO2 141.2 H (80.0-90.0) mm Hg ABG HCO3 30.6 H (20.0-26.0) mmol/L ABG Base Excess 4.1 H (-2.0-3.0) mmol/L ABG Hemoglobin 12.0 L (14.0-18.0) gm/dl Sodium 150 H (137-145) mmol/L Chloride 111.8 H (98-107) mmol/L Total Bilirubin (0.1-1.2) mg/dL Direct Bilirubin (0-0.2) mg/dL AST (5-40) units/L Total Protein (6.3-8.2) g/dL Albumin (3.9-5) g/dL 06/02/21 Range/Units 07:41 WBC (4.5-11.0) K/mm3 Hgb (11.8-15.2) gm/dl Hct (35.5-45.6) % RDW (13.2-15.2) % ABG pO2 (80.0-90.0) mm Hg ABG HCO3 (20.0-26.0) mmol/L ABG Base Excess (-2.0-3.0) mmol/L ABG Hemoglobin (14.0-18.0) gm/dl Sodium (137-145) mmol/L Chloride (98-107) mmol/L Total Bilirubin 3.30 H (0.1-1.2) mg/dL Direct Bilirubin 2.4 H (0-0.2) mg/dL AST 48 H (5-40) units/L Total Protein 6.1 L (6.3-8.2) g/dL Albumin 2.1 L (3.9-5) g/dL Diabetes panel 06/02/21 06/02/21 Range/Units 07:41 07:41 Sodium 150 H (137-145) mmol/L Potassium 3.8 (3.6-5.0) mmol/L Chloride 111.8 H (98-107) mmol/L Carbon Dioxide 28 (22-30) mmol/L BUN 13 (9-20) mg/dL Creatinine 0.8 (0.8-1.3) mg/dL Glucose 93 (75-100) mg/dL Calcium 8.8 (8.4-10.2) mg/dL AST 48 H (5-40) units/L ALT 33 (7-56) units/L Alkaline Phosphatase 117 (35-129) units/L Total Protein 6.1 L (6.3-8.2) g/dL Albumin 2.1 L (3.9-5) g/dL Calcium panel 06/02/21 06/02/21 Range/Units 07:41 07:41 Calcium 8.8 (8.4-10.2) mg/dL Phosphorus 3.00 (2.5-4.5) mg/dL Albumin 2.1 L (3.9-5) g/dL Pituitary panel 06/02/21 Range/Units 07:41 Sodium 150 H (137-145) mmol/L Potassium 3.8 (3.6-5.0) mmol/L Chloride 111.8 H (98-107) mmol/L Carbon Dioxide 28 (22-30) mmol/L BUN 13 (9-20) mg/dL Creatinine 0.8 (0.8-1.3) mg/dL Glucose 93 (75-100) mg/dL Calcium 8.8 (8.4-10.2) mg/dL Adrenal panel 06/02/21 06/02/21 Range/Units 07:41 07:41 Sodium 150 H (137-145) mmol/L Potassium 3.8 (3.6-5.0) mmol/L Chloride 111.8 H (98-107) mmol/L Carbon Dioxide 28 (22-30) mmol/L BUN 13 (9-20) mg/dL Creatinine 0.8 (0.8-1.3) mg/dL Glucose 93 (75-100) mg/dL Calcium 8.8 (8.4-10.2) mg/dL Total Bilirubin 3.30 H (0.1-1.2) mg/dL AST 48 H (5-40) units/L ALT 33 (7-56) units/L Alkaline Phosphatase 117 (35-129) units/L Total Protein 6.1 L (6.3-8.2) g/dL Albumin 2.1 L (3.9-5) g/dL Assessment and Plan Pt with several failed attempts to wean from ventillator. will try to schedule for treach and peg.
[2021-06-02 20:45] LABS: BUN/Creatinine Ratio 21
[2021-06-02] MEDS: FAMOTIDINE 20 MG TAB FEEDTUBE SCH (20:59)
[2021-06-03] MEDS: fentaNYL DRIP Premix 2,000 MCG/100 ML BAG IV SCH ×6 (01:43→23:17)
--- NOTE | 2021-06-03 02:40 | XRay Report ---
CHEST 1 VIEW 06/03/2021 1:27 AM INDICATION / CLINICAL INFORMATION: follow up respiratory failure. COMPARISON: 06/02/2021 FINDINGS: SUPPORT DEVICES: Stable, satisfactory device positioning. HEART / MEDIASTINUM: Cardiomegaly LUNGS / PLEURA: Mild increased pulmonary vascularity No pneumothorax. ADDITIONAL FINDINGS: No significant additional findings. IMPRESSION: 1. No significant change Signer Name: Toribio Morales MD Signed: 06/03/2021 2:35 AM Workstation Name: [email or web address]
[2021-06-03] MEDS: FREE WATER PO SCH ×7 (04:00→23:18)
[2021-06-03 09:03] LABS: Hematocrit 37.9 % (35.5-45.6); Hemoglobin 11.7 gm/dl (11.8-15.2); Mean Corpuscular HGB Conc 31 % (32-34); Mean Corpuscular Volume 89 fl (84-94); Platelet Count 415 K/mm3 (140-440); Red Blood Count 4.28 M/mm3 (3.65-5.03); Red Cell Distribution Width 15.4 % (13.2-15.2)
[2021-06-03] MEDS: LORazepam 2 MG/ML VIAL IV PRN (09:20)
[2021-06-03] MEDS ORDERED: MIDAZOLAM 2 MG/2 ML INJ IV PRN (10:06)
[2021-06-03] MEDS: FOLBEE PLUS CZ (FOLIC ACID/VIT BCOMP&C/CU/ZNOX) PO SCH (10:45)
[2021-06-03] MEDS: AMPICILLIN/SULBACTA 3GM/100ML 3 GM/100 ML BAG IV SCH ×3 (10:45→23:17)
[2021-06-03] MEDS: SENNOSIDES/DOCUSATE SODIUM 8.6/50 MG TAB FEEDTUBE SCH ×2 (10:45→21:12)
[2021-06-03] MEDS: ENOXAPARIN 40 MG/0.4 ML INJ SUB-Q SCH (10:45)
[2021-06-03] MEDS: MIDODRINE 5 MG TAB PO SCH ×3 (10:45→15:26)
[2021-06-03] MEDS: MIDAZOLAM 100 MG in SODIUM CHLORIDE 0.9% 80 ML IV SCH (10:46)
--- NOTE | 2021-06-03 11:51 | Progress Note ---
Assessment and Plan Patient is a 40-year-old male with a past medical history of HFrEF (EF 15%) and methamphetamine dependence who was brought to the ED after being found unresponsive on 05/13/2021. Acute hypoxic respiratory failure-pulmonology following Drug overdose Acute on chronic HFrEF Sepsis Bilateral pneumonia BRYNN-Nephrology following Rhabdomyolysis Hypernatremia Echo 05/25/2021-EF 20 to 25%. Severe global hypokinesis of left ventricle. Left ventricle is moderately dilated. Doppler flow suggests impaired LV relaxation. Moderate mitral regurgitation. No pericardial effusion Cardiac cath 08/04/2020-Angiographically normal coronary arteries. This is indicative of a nonischemic cardiomyopathy. Mildly elevated biventricular filling pressures with normal cardiac index TTE, complete 08/02/20:LVEF is 18%,Severe global LV hypokinesis. Normal LV diastolic function. LA mildly dilated. Moderate mitral regurgitation with an eccentric MR jet(s),No previous echocardiogram for comparison. Outpatient medications: Coreg 6.52 mg p.o. twice daily, Lasix 40 mg p.o. daily, lisinopril 5 mg p.o. daily Plan: Will hold RAMYA and ARB as per nephro recs Recommend holding beta-woo due to patient soft BP Continue midodrine 5 mg p.o. 3 times daily due to low BPs Patient seen in conjunction with Dr. Salazar who agrees with this plan of care - Patient Problems (1) Acute on chronic HFrEF (heart failure with reduced ejection fraction) Current Visit: Yes Status: Acute (2) PNA (pneumonia) Current Visit: Yes Status: Acute (3) Acute encephalopathy Current Visit: Yes Status: Acute (4) Acute respiratory failure Current Visit: Yes Status: Acute Qualifiers: Respiratory failure complication: hypoxia Qualified Code(s): J96.01 - Acute respiratory failure with hypoxia (5) Overdose by ingestion Current Visit: Yes Status: Acute Subjective Date of service: 06/03/21 Principal diagnosis: Overdose Interval history: Patient remains intubated and sedated. Sinus 60s-70s on monitor Objective Vital Signs Temp Pulse Pulse Pulse Resp BP Pulse Ox 06/03/21 11:40 99.2 F 06/03/21 11:01 72 20 103/51 99 06/03/21 10:30 79 21 95/47 98 06/03/21 10:00 98 H 20 95/50 98 06/03/21 09:31 137 H 28 H 155/71 98 06/03/21 09:00 142 H 24 145/80 90 06/03/21 08:31 116 H 17 149/77 98 06/03/21 08:00 100.7 F H 117 H 16 107/61 100 06/03/21 07:30 121 H 22 129/55 97 06/03/21 07:00 123 H 15 127/67 97 06/03/21 06:30 113 H 15 101/48 98 06/03/21 06:00 67 20 98/48 98 06/03/21 05:30 67 21 99/50 97 06/03/21 05:00 67 20 98/50 98 06/03/21 04:30 68 20 97/49 97 06/03/21 04:11 67 102/51 98 06/03/21 04:00 98.0 F 68 20 102/51 99 06/03/21 03:34 67 20 98 06/03/21 03:33 68 06/03/21 03:30 67 20 101/49 97 06/03/21 03:00 68 20 98/50 98 06/03/21 02:30 67 21 100/49 98 06/03/21 02:00 67 21 96/47 99 06/03/21 01:30 67 21 96/48 97 06/03/21 01:00 68 19 97/48 98 06/03/21 00:30 69 19 91/45 97 06/03/21 00:26 69 90/45 98 06/03/21 00:00 98.4 F 72 21 96/47 98 06/02/21 23:41 96 H 21 109/64 97 06/02/21 23:30 95 H 21 109/64 98 06/02/21 23:00 91 H 16 110/64 99 06/02/21 22:30 71 20 106/55 98 06/02/21 22:12 70 06/02/21 22:00 70 20 92/47 98 06/02/21 21:30 70 20 93/47 98 06/02/21 21:00 70 20 95/49 98 06/02/21 20:30 70 20 95/47 97 06/02/21 20:28 70 95/47 98 06/02/21 20:00 100.8 F H 73 20 94/45 98 06/02/21 19:56 73 20 97 06/02/21 19:30 77 13 104/47 97 06/02/21 19:00 108 H 14 113/55 98 06/02/21 18:30 96 H 20 110/60 99 06/02/21 18:00 72 20 96/48 99 06/02/21 17:30 73 20 95/48 98 06/02/21 17:00 76 20 91/47 98 06/02/21 16:30 79 20 91/43 97 06/02/21 16:00 99.0 F 98 H 92 H 20 109/55 98 06/02/21 15:30 128 H 13 104/68 99 06/02/21 15:00 72 20 99/50 99 06/02/21 14:30 74 20 104/49 98 06/02/21 14:00 72 20 101/46 98 06/02/21 13:30 77 20 102/54 98 06/02/21 13:00 75 20 102/48 98 06/02/21 12:30 85 18 95/59 98 06/02/21 12:05 71 97/48 99 06/02/21 12:00 98.0 F 72 72 20 98/45 98 - Physical Examination General: Other (intubated/sedated) HEENT: Positive: Normocephaly Neck: Positive: neck supple, trachea midline. Negative: JVD/HJR Cardiac: Positive: Reg Rate and Rhythm Lungs: Positive: Ventilated Respirations Neuro: Positive: Other (agitated) Abdomen: Positive: Soft Skin: Negative: Rash Extremities: Present: warm. Absent: edema - Labs and Meds Cardiac Enzymes 06/02/21 06/02/21 Range/Units 07:41 20:00 AST 48 H 53 H (5-40) units/L CBC 06/03/21 Range/Units 08:29 WBC 12.2 H (4.5-11.0) K/mm3 RBC 4.28 (3.65-5.03) M/mm3 Hgb 11.7 L (11.8-15.2) gm/dl Hct 37.9 (35.5-45.6) % Plt Count 415 (140-440) K/mm3 Comprehensive Metabolic Panel 06/02/21 06/02/21 Range/Units 07:41 20:00 Sodium 145 (137-145) mmol/L Potassium 4.2 (3.6-5.0) mmol/L Chloride 111.1 H (98-107) mmol/L Carbon Dioxide 25 (22-30) mmol/L BUN 15 (9-20) mg/dL Creatinine 0.7 L (0.8-1.3) mg/dL Glucose 105 H (75-100) mg/dL Calcium 8.3 L (8.4-10.2) mg/dL Direct Bilirubin 2.4 H (0-0.2) mg/dL Indirect Bilirubin 0.9 mg/dL AST 48 H 53 H (5-40) units/L ALT 33 30 (7-56) units/L Alkaline Phosphatase 117 115 (35-129) units/L Total Protein 6.1 L 6.2 L (6.3-8.2) g/dL Albumin 2.1 L 1.8 L (3.9-5) g/dL - Imaging and Cardiology EKG: report reviewed, image reviewed Echo: report reviewed Cardiac cath: report reviewed - Telemetry EKG Rhythm: Sinus Rhythm - EKG Sinus rhythms and dysrhythmias: sinus tachycardia Ventricular dysrhythmias: ventricular premature com Repolarization changes or abnormalities: nonspecific abnormality, ST segment, and/or T wave - Allied health notes Allied health notes reviewed: nursing
--- NOTE | 2021-06-03 12:13 | Progress Note ---
Assessment and Plan 40 y/o male with suspected overdose and metabolic acidosis 06/03/21: Surgery has seen and will schedule for trach and peg soon. IR consult ed given acute DVT in upper ext and possible retained products. Will obtain CT of chest. Given mental status and no real answer with negative head CT, will obtain MRI. Will start empiric unasyn given secretions, odor and white count. Only on minimal vent settings. Await sputum culture. LFT's better. WIll place central line in groin. GUarded prognosis. 06/02/21: recheck LFT's. Consult surgery for trach and peg. Feed patient. Reviewed abdominal US from 05/27, unremarkable but if LFT's worse, may need to repeat or even consider CT of abdomen pelvis. 06/01/21: Reintubated today. Sedated. Spoke with mother over the phone. Given this is the third intubation in less than 10 days, will consult surgery for trach and peg. 05/31/21: Extubated and had some upper airway noise. RT gave racemic epi. Increased work of breathing but no desats so will try bipap therapy. If fails will be reintubated and trached. Keep NPO for now. Will need to change BB to IV while on bipap therapy. 05/28/21: Extubate again today once patient is more awake. Continue precedex to help with agitation. Will need swallow eval once extubated. Cards is seeing, await any new recs. spoke with them this morning and his cardiomyopathy and systolic heart failure are chronic with normal coronaries on a cath last year sometime in the [place] [facility]. 05/27/21: Get patient to ICU as soon as possible to achieve adequate sedation and mental state control to insure successful extubation. AGree with Precedex 05/26/21: Attempt extubation today once all sedation is off. 05/25/21: follow up echo. Spoke with RT about ABG. States will be in system within the hour. Still pressors but on Precedex, Versed and Fent. needs to be COVID tested. BNP was >6k. Unable to diurese right now given pressor r equirements but need to follow up echo. need to get patient upstairs as soon as possible. Spoke with charge nurse and they are working on this. 1. CXR shows cardiomegaly with some bibasilar changes. Could be fluid. Suggest swabbing for COVID. Check BNP and obtain 2D echo given heart size. 2. Minimal sedation to assess mental status 3. Wean pressors for MAPS >60 4. Follow up renal recs 5. No ABG prior to intubation. Echo should be a bubble study given degree of hypoxemia seen on ABG CCT 31 minutes. Subjective Date of service: 06/03/21 Principal diagnosis: Overdose Interval history: Very agitated this am despite max dosing of 3 sedatives. Pulled out picc line. Found to have acute DVT in upper ext. Objective Vital Signs - 12hr 06/03/21 06/03/21 06/03/21 00:26 00:30 01:00 Temperature Pulse Rate 69 69 68 Pulse Rate [ Right Dorsalis Pedis] Respiratory 19 19 Rate Blood Pressure 90/45 91/45 97/48 O2 Sat by Pulse 98 97 98 Oximetry 06/03/21 06/03/21 06/03/21 01:30 02:00 02:30 Temperature Pulse Rate 67 67 67 Pulse Rate [ Right Dorsalis Pedis] Respiratory 21 21 21 Rate Blood Pressure 96/48 96/47 100/49 O2 Sat by Pulse 97 99 98 Oximetry 06/03/21 06/03/21 06/03/21 03:00 03:30 03:33 Temperature Pulse Rate 68 67 68 Pulse Rate [ Right Dorsalis Pedis] Respiratory 20 20 Rate Blood Pressure 98/50 101/49 O2 Sat by Pulse 98 97 Oximetry 06/03/21 06/03/21 06/03/21 03:34 04:00 04:11 Temperature 98.0 F Pulse Rate 68 67 Pulse Rate [ 67 Right Dorsalis Pedis] Respiratory 20 20 Rate Blood Pressure 102/51 102/51 O2 Sat by Pulse 98 99 98 Oximetry 06/03/21 06/03/21 06/03/21 04:30 05:00 05:30 Temperature Pulse Rate 68 67 67 Pulse Rate [ Right Dorsalis Pedis] Respiratory 20 20 21 Rate Blood Pressure 97/49 98/50 99/50 O2 Sat by Pulse 97 98 97 Oximetry 06/03/21 06/03/21 06/03/21 06:00 06:30 07:00 Temperature Pulse Rate 67 113 H 123 H Pulse Rate [ Right Dorsalis Pedis] Respiratory 20 15 15 Rate Blood Pressure 98/48 101/48 127/67 O2 Sat by Pulse 98 98 97 Oximetry 06/03/21 06/03/21 06/03/21 07:30 08:00 08:31 Temperature 100.7 F H Pulse Rate 121 H 117 H 116 H Pulse Rate [ Right Dorsalis Pedis] Respiratory 22 16 17 Rate Blood Pressure 129/55 107/61 149/77 O2 Sat by Pulse 97 100 98 Oximetry 06/03/21 06/03/21 06/03/21 09:00 09:31 10:00 Temperature Pulse Rate 142 H 137 H 98 H Pulse Rate [ Right Dorsalis Pedis] Respiratory 24 28 H 20 Rate Blood Pressure 145/80 155/71 95/50 O2 Sat by Pulse 90 98 98 Oximetry 06/03/21 06/03/21 06/03/21 10:30 11:01 11:40 Temperature 99.2 F Pulse Rate 79 72 Pulse Rate [ Right Dorsalis Pedis] Respiratory 21 20 Rate Blood Pressure 95/47 103/51 O2 Sat by Pulse 98 99 Oximetry Constitutional: other (Arousable to verbal stimulation) ENT: oropharynx moist, other (Orally intubated) Ascultation: Bilateral: rhonchi Cardiovascular: regular rate and rhythm (With episodes of tachycardia) Gastrointestinal: normoactive bowel sounds, soft, non-tender CBC and BMP: 06/03/21 08:29 06/02/21 20:00 ABG, PT/INR, D-dimer: ABG ABG pH 7.367 pH Units (7.350-7.450) 06/02/21 05:42 POC ABG pCO2 41.6 mmHg (32.0-48.0) 05/24/21 03:44 ABG pCO2 54.4 mm Hg 06/02/21 05:42 POC ABG pO2 87.6 mmHg (83-108) 05/24/21 03:44 ABG pO2 141.2 mm Hg (80.0-90.0) H 06/02/21 05:42 POC ABG HCO3 17.5 05/24/21 03:44 ABG O2 Saturation 98.6 % (95.0-99.0) 06/02/21 05:42 Abnormal lab findings: Abnormal Labs 05/23/21 05/23/21 05/23/21 05:55 09:38 09:38 WBC RBC 5.09 H Hgb Hct 46.2 H MCH MCHC RDW Lymph % (Auto) [place] % (Auto) [place] # (Auto) Seg Neutrophils % Seg Neuts % (Manual) Lymphocytes % (Manual) Seg Neutrophils # Seg Neutrophils # Man Lymphocytes # (Manual) ABG pH 7.265 L ABG pO2 ABG HCO3 ABG O2 Saturation 94.6 L ABG Base Excess -4.5 L ABG Hemoglobin ABG Potassium ABG Glucose Oxyhemoglobin 92.3 L Sodium Potassium Chloride Carbon Dioxide 20 L BUN Creatinine Glucose 147 H POC Glucose Lactic Acid Calcium Phosphorus Magnesium Total Bilirubin Direct Bilirubin AST Total Creatine Kinase C-Reactive Protein NT-Pro-B Natriuret Pep Total Protein Albumin 3.6 L Arterial Blood Glucose Urine WBC (Auto) Salicylates Acetaminophen 05/23/21 05/23/21 05/23/21 09:38 09:38 09:38 WBC RBC Hgb Hct MCH MCHC RDW Lymph % (Auto) [place] % (Auto) [place] # (Auto) Seg Neutrophils % Seg Neuts % (Manual) Lymphocytes % (Manual) Seg Neutrophils # Seg Neutrophils # Man Lymphocytes # (Manual) ABG pH ABG pO2 ABG HCO3 ABG O2 Saturation ABG Base Excess ABG Hemoglobin ABG Potassium ABG Glucose Oxyhemoglobin Sodium Potassium Chloride Carbon Dioxide BUN Creatinine Glucose POC Glucose Lactic Acid Calcium Phosphorus Magnesium Total Bilirubin Direct Bilirubin AST Total Creatine Kinase C-Reactive Protein NT-Pro-B Natriuret Pep 6058 H Total Protein Albumin Arterial Blood Glucose Urine WBC (Auto) Salicylates < 0.3 L Acetaminophen 5.0 L 05/23/21 05/23/21 05/24/21 12:49 Unknown 03:44 WBC RBC Hgb Hct MCH MCHC RDW Lymph % (Auto) [place] % (Auto) [place] # (Auto) Seg Neutrophils % Seg Neuts % (Manual) Lymphocytes % (Manual) Seg Neutrophils # Seg Neutrophils # Man Lymphocytes # (Manual) ABG pH 7.208 L 7.241 L ABG pO2 52.2 L ABG HCO3 ABG O2 Saturation 93.5 L 83.7 L ABG Base Excess -6.7 L -3.7 L ABG Hemoglobin ABG Potassium 5.6 H ABG Glucose 53 L Oxyhemoglobin 91.1 L 81.1 L Sodium Potassium Chloride Carbon Dioxide BUN Creatinine Glucose POC Glucose Lactic Acid Calcium Phosphorus Magnesium Total Bilirubin Direct Bilirubin AST Total Creatine Kinase C-Reactive Protein NT-Pro-B Natriuret Pep Total Protein Albumin Arterial Blood Glucose 53 L Urine WBC (Auto) Salicylates Acetaminophen 05/24/21 05/24/21 05/24/21 05:14 05:14 09:35 WBC 23.3 H RBC 5.23 H Hgb Hct 47.3 H MCH MCHC RDW 15.3 H Lymph % (Auto) [place] % (Auto) [place] # (Auto) Seg Neutrophils % Seg Neuts % (Manual) 12.0 L Lymphocytes % (Manual) 3.0 L Seg Neutrophils # Seg Neutrophils # Man Lymphocytes # (Manual) 0.7 L ABG pH ABG pO2 ABG HCO3 ABG O2 Saturation ABG Base Excess ABG Hemoglobin ABG Potassium ABG Glucose Oxyhemoglobin Sodium Potassium 6.3 H* D Chloride 107.3 H Carbon Dioxide 20 L BUN 33 H Creatinine 3.5 H D Glucose 56 L POC Glucose Lactic Acid Calcium Phosphorus Magnesium Total Bilirubin 1.90 H Direct Bilirubin AST Total Creatine Kinase 556 H C-Reactive Protein NT-Pro-B Natriuret Pep Total Protein 4.9 L D Albumin 2.8 L Arterial Blood Glucose Urine WBC (Auto) Salicylates Acetaminophen 05/24/21 05/24/21 05/25/21 19:45 Unknown 04:23 WBC 20.1 H RBC Hgb Hct MCH MCHC 31 L RDW 15.5 H Lymph % (Auto) [place] % (Auto) [place] # (Auto) Seg Neutrophils % Seg Neuts % (Manual) 94.0 H Lymphocytes % (Manual) 5.0 L Seg Neutrophils # Seg Neutrophils # Man 18.9 H Lymphocytes # (Manual) 1.0 L ABG pH ABG pO2 ABG HCO3 ABG O2 Saturation ABG Base Excess ABG Hemoglobin ABG Potassium ABG Glucose Oxyhemoglobin Sodium Potassium 5.7 H Chloride 108.9 H Carbon Dioxide 21 L BUN 36 H Creatinine 2.6 H Glucose 108 H POC Glucose Lactic Acid Calcium Phosphorus Magnesium Total Bilirubin Direct Bilirubin AST Total Creatine Kinase C-Reactive Protein NT-Pro-B Natriuret Pep Total Protein Albumin Arterial Blood Glucose Urine WBC (Auto) 78.0 H Salicylates Acetaminophen 05/25/21 05/25/21 05/25/21 04:23 09:14 11:46 WBC RBC Hgb Hct MCH MCHC RDW Lymph % (Auto) [place] % (Auto) [place] # (Auto) Seg Neutrophils % Seg Neuts % (Manual) Lymphocytes % (Manual) Seg Neutrophils # Seg Neutrophils # Man Lymphocytes # (Manual) ABG pH ABG pO2 ABG HCO3 ABG O2 Saturation ABG Base Excess ABG Hemoglobin ABG Potassium ABG Glucose Oxyhemoglobin Sodium Potassium Chloride 111.4 H Carbon Dioxide 18 L BUN 33 H Creatinine 1.9 H Glucose 121 H POC Glucose Lactic Acid 2.40 H* 2.60 H* Calcium Phosphorus Magnesium Total Bilirubin Direct Bilirubin AST Total Creatine Kinase C-Reactive Protein NT-Pro-B Natriuret Pep Total Protein Albumin Arterial Blood Glucose Urine WBC (Auto) Salicylates Acetaminophen 05/25/21 05/26/21 05/26/21 18:00 03:16 05:55 WBC 22.0 H RBC Hgb Hct MCH MCHC RDW 15.3 H Lymph % (Auto) [place] % (Auto) [place] # (Auto) Seg Neutrophils % Seg Neuts % (Manual) 96.0 H Lymphocytes % (Manual) 2.0 L Seg Neutrophils # Seg Neutrophils # Man 21.1 H Lymphocytes # (Manual) 0.4 L ABG pH ABG pO2 208.2 H ABG HCO3 ABG O2 Saturation 99.3 H ABG Base Excess -2.7 L -2.6 L ABG Hemoglobin 13.7 L 13.0 L ABG Potassium ABG Glucose Oxyhemoglobin 94.8 L Sodium Potassium Chloride Carbon Dioxide BUN Creatinine Glucose POC Glucose Lactic Acid Calcium Phosphorus Magnesium Total Bilirubin Direct Bilirubin AST Total Creatine Kinase C-Reactive Protein NT-Pro-B Natriuret Pep Total Protein Albumin Arterial Blood Glucose Urine WBC (Auto) Salicylates Acetaminophen 05/26/21 05/27/21 05/27/21 05:55 03:18 03:18 WBC 21.5 H RBC Hgb Hct MCH MCHC RDW 15.5 H Lymph % (Auto) [place] % (Auto) [place] # (Auto) Seg Neutrophils % Seg Neuts % (Manual) 92.0 H Lymphocytes % (Manual) 5.0 L Seg Neutrophils # Seg Neutrophils # Man 19.8 H Lymphocytes # (Manual) 1.1 L ABG pH ABG pO2 ABG HCO3 ABG O2 Saturation ABG Base Excess ABG Hemoglobin ABG Potassium ABG Glucose Oxyhemoglobin Sodium 148 H Potassium Chloride 111.3 H 113.8 H Carbon Dioxide 21 L 20 L BUN 23 H Creatinine Glucose 102 H 103 H POC Glucose Lactic Acid Calcium 8.3 L Phosphorus Magnesium Total Bilirubin 7.80 H Direct Bilirubin AST 112 H Total Creatine Kinase C-Reactive Protein NT-Pro-B Natriuret Pep Total Protein 5.2 L Albumin 2.9 L Arterial Blood Glucose Urine WBC (Auto) Salicylates Acetaminophen 05/27/21 05/28/21 05/28/21 03:18 05:55 10:05 WBC 11.4 H RBC Hgb Hct MCH MCHC RDW 15.5 H Lymph % (Auto) 11.2 L [place] % (Auto) 8.6 H [place] # (Auto) 1.0 H Seg Neutrophils % 78.9 H Seg Neuts % (Manual) Lymphocytes % (Manual) Seg Neutrophils # 9.0 H Seg Neutrophils # Man Lymphocytes # (Manual) ABG pH ABG pO2 104.7 H ABG HCO3 ABG O2 Saturation ABG Base Excess -3.1 L ABG Hemoglobin 13.2 L ABG Potassium ABG Glucose Oxyhemoglobin Sodium Potassium Chloride Carbon Dioxide BUN Creatinine Glucose POC Glucose Lactic Acid Calcium Phosphorus Magnesium Total Bilirubin 7.90 H Direct Bilirubin 6.0 H AST 114 H Total Creatine Kinase C-Reactive Protein NT-Pro-B Natriuret Pep Total Protein 5.2 L Albumin 2.8 L Arterial Blood Glucose Urine WBC (Auto) Salicylates Acetaminophen 05/28/21 05/28/21 05/28/21 10:05 10:05 10:05 WBC RBC Hgb Hct MCH MCHC RDW Lymph % (Auto) [place] % (Auto) [place] # (Auto) Seg Neutrophils % Seg Neuts % (Manual) Lymphocytes % (Manual) Seg Neutrophils # Seg Neutrophils # Man Lymphocytes # (Manual) ABG pH ABG pO2 ABG HCO3 ABG O2 Saturation ABG Base Excess ABG Hemoglobin ABG Potassium ABG Glucose Oxyhemoglobin Sodium 149 H Potassium Chloride 119.9 H Carbon Dioxide 18 L BUN Creatinine Glucose 103 H POC Glucose Lactic Acid 2.10 H* Calcium Phosphorus Magnesium Total Bilirubin Direct Bilirubin AST Total Creatine Kinase C-Reactive Protein 34.80 H NT-Pro-B Natriuret Pep Total Protein Albumin Arterial Blood Glucose Urine WBC (Auto) Salicylates Acetaminophen 05/29/21 05/29/21 05/29/21 03:00 05:02 05:02 WBC 13.0 H RBC Hgb Hct MCH MCHC RDW 15.4 H Lymph % (Auto) [place] % (Auto) [place] # (Auto) Seg Neutrophils % Seg Neuts % (Manual) Lymphocytes % (Manual) Seg Neutrophils # Seg Neutrophils # Man Lymphocytes # (Manual) ABG pH ABG pO2 138.1 H ABG HCO3 ABG O2 Saturation ABG Base Excess -3.6 L ABG Hemoglobin 12.8 L ABG Potassium ABG Glucose Oxyhemoglobin Sodium 150 H Potassium Chloride 119.8 H Carbon Dioxide 18 L BUN Creatinine Glucose 109 H POC Glucose Lactic Acid Calcium Phosphorus 2.20 L Magnesium 1.50 L Total Bilirubin Direct Bilirubin AST Total Creatine Kinase C-Reactive Protein NT-Pro-B Natriuret Pep Total Protein Albumin Arterial Blood Glucose Urine WBC (Auto) Salicylates Acetaminophen 05/29/21 05/29/21 05/30/21 17:00 23:37 04:29 WBC RBC Hgb 10.8 L Hct 33.4 L MCH MCHC RDW 15.7 H Lymph % (Auto) [place] % (Auto) [place] # (Auto) Seg Neutrophils % Seg Neuts % (Manual) Lymphocytes % (Manual) Seg Neutrophils # Seg Neutrophils # Man Lymphocytes # (Manual) ABG pH ABG pO2 ABG HCO3 ABG O2 Saturation ABG Base Excess ABG Hemoglobin ABG Potassium ABG Glucose Oxyhemoglobin Sodium Potassium Chloride Carbon Dioxide BUN Creatinine Glucose POC Glucose 114 H 122 H Lactic Acid Calcium Phosphorus Magnesium Total Bilirubin Direct Bilirubin AST Total Creatine Kinase C-Reactive Protein NT-Pro-B Natriuret Pep Total Protein Albumin Arterial Blood Glucose Urine WBC (Auto) Salicylates Acetaminophen 05/30/21 05/30/21 05/31/21 04:29 23:36 04:00 WBC 11.2 H RBC Hgb 10.9 L Hct 34.3 L MCH MCHC RDW 15.4 H Lymph % (Auto) [place] % (Auto) [place] # (Auto) Seg Neutrophils % Seg Neuts % (Manual) Lymphocytes % (Manual) Seg Neutrophils # Seg Neutrophils # Man Lymphocytes # (Manual) ABG pH ABG pO2 ABG HCO3 ABG O2 Saturation ABG Base Excess ABG Hemoglobin ABG Potassium ABG Glucose Oxyhemoglobin Sodium Potassium 3.2 L Chloride 112.4 H Carbon Dioxide 21 L BUN Creatinine 0.7 L Glucose 128 H POC Glucose 120 H Lactic Acid Calcium Phosphorus Magnesium Total Bilirubin Direct Bilirubin AST Total Creatine Kinase C-Reactive Protein NT-Pro-B Natriuret Pep Total Protein Albumin Arterial Blood Glucose Urine WBC (Auto) Salicylates Acetaminophen 05/31/21 05/31/2105/31/22 04:00 11:50 16:16 WBC RBC Hgb Hct MCH MCHC RDW Lymph % (Auto) [place] % (Auto) [place] # (Auto) Seg Neutrophils % Seg Neuts % (Manual) Lymphocytes % (Manual) Seg Neutrophils # Seg Neutrophils # Man Lymphocytes # (Manual) ABG pH ABG pO2 ABG HCO3 ABG O2 Saturation ABG Base Excess ABG Hemoglobin ABG Potassium ABG Glucose Oxyhemoglobin Sodium 148 H Potassium Chloride 114.8 H Carbon Dioxide BUN Creatinine Glucose 151 H POC Glucose 123 H 107 H Lactic Acid Calcium Phosphorus Magnesium Total Bilirubin Direct Bilirubin AST Total Creatine Kinase C-Reactive Protein NT-Pro-B Natriuret Pep Total Protein Albumin Arterial Blood Glucose Urine WBC (Auto) Salicylates Acetaminophen 06/01/21 06/01/21 06/01/21 02:55 04:10 04:10 WBC 16.5 H RBC Hgb Hct MCH MCHC RDW 16.0 H Lymph % (Auto) [place] % (Auto) [place] # (Auto) Seg Neutrophils % Seg Neuts % (Manual) Lymphocytes % (Manual) Seg Neutrophils # Seg Neutrophils # Man Lymphocytes # (Manual) ABG pH 7.334 L ABG pO2 ABG HCO3 26.1 H ABG O2 Saturation ABG Base Excess ABG Hemoglobin 12.6 L ABG Potassium ABG Glucose Oxyhemoglobin 93.1 L Sodium 148 H Potassium 3.4 L Chloride 108.8 H Carbon Dioxide BUN Creatinine Glucose 113 H POC Glucose Lactic Acid Calcium Phosphorus Magnesium Total Bilirubin Direct Bilirubin AST Total Creatine Kinase C-Reactive Protein NT-Pro-B Natriuret Pep Total Protein Albumin Arterial Blood Glucose Urine WBC (Auto) Salicylates Acetaminophen 06/01/21 06/01/21 06/02/21 12:46 15:30 05:42 WBC RBC Hgb Hct MCH MCHC RDW Lymph % (Auto) [place] % (Auto) [place] # (Auto) Seg Neutrophils % Seg Neuts % (Manual) Lymphocytes % (Manual) Seg Neutrophils # Seg Neutrophils # Man Lymphocytes # (Manual) ABG pH ABG pO2 114.5 H 141.2 H ABG HCO3 29.6 H 30.6 H ABG O2 Saturation ABG Base Excess 4.5 H 4.1 H ABG Hemoglobin 11.8 L 12.0 L ABG Potassium ABG Glucose Oxyhemoglobin Sodium Potassium Chloride Carbon Dioxide BUN Creatinine Glucose POC Glucose 119 H Lactic Acid Calcium Phosphorus Magnesium Total Bilirubin Direct Bilirubin AST Total Creatine Kinase C-Reactive Protein NT-Pro-B Natriuret Pep Total Protein Albumin Arterial Blood Glucose Urine WBC (Auto) Salicylates Acetaminophen 06/02/21 06/02/21 06/02/21 07:41 07:41 07:41 WBC 17.4 H RBC Hgb 11.1 L Hct 34.3 L MCH MCHC RDW 15.9 H Lymph % (Auto) [place] % (Auto) [place] # (Auto) Seg Neutrophils % Seg Neuts % (Manual) Lymphocytes % (Manual) Seg Neutrophils # Seg Neutrophils # Man Lymphocytes # (Manual) ABG pH ABG pO2 ABG HCO3 ABG O2 Saturation ABG Base Excess ABG Hemoglobin ABG Potassium ABG Glucose Oxyhemoglobin Sodium 150 H Potassium Chloride 111.8 H Carbon Dioxide BUN Creatinine Glucose POC Glucose Lactic Acid Calcium Phosphorus Magnesium Total Bilirubin 3.30 H Direct Bilirubin 2.4 H AST 48 H Total Creatine Kinase C-Reactive Protein NT-Pro-B Natriuret Pep Total Protein 6.1 L Albumin 2.1 L Arterial Blood Glucose Urine WBC (Auto) Salicylates Acetaminophen 06/02/21 06/02/21 06/03/21 20:00 23:30 08:29 WBC 12.2 H RBC Hgb 11.7 L Hct MCH 27 L MCHC 31 L RDW 15.4 H Lymph % (Auto) [place] % (Auto) [place] # (Auto) Seg Neutrophils % Seg Neuts % (Manual) Lymphocytes % (Manual) Seg Neutrophils # Seg Neutrophils # Man Lymphocytes # (Manual) ABG pH ABG pO2 ABG HCO3 ABG O2 Saturation ABG Base Excess ABG Hemoglobin ABG Potassium ABG Glucose Oxyhemoglobin Sodium Potassium Chloride 111.1 H Carbon Dioxide BUN Creatinine 0.7 L Glucose 105 H POC Glucose 112 H Lactic Acid Calcium 8.3 L Phosphorus Magnesium Total Bilirubin 2.90 H Direct Bilirubin AST 53 H Total Creatine Kinase C-Reactive Protein NT-Pro-B Natriuret Pep Total Protein 6.2 L Albumin 1.8 L Arterial Blood Glucose Urine WBC (Auto) Salicylates Acetaminophen Allied health notes reviewed: nursing
--- NOTE | 2021-06-03 13:51 | Progress Note ---
Assessment and Plan Impression: * Nonoliguric cute kidney injury secondary to ATN * Acute hypoxic respiratory failure --COVID 19 negative * Acute encephalopathy * Hypernatremia * Hypotension * Drug overdose * Hyperkalemia * Hypernatremia Plan: * Renal function has improved - BRYNN resolved * Hypernatremia improving - Na 148->150->145 - note free water flushes with tube feeds * K repletion prn, note order * Continue close monitoring of renal function * vent/respiratory management per pulm * Pressors prn - maintain MAP>65 * Dose medications for renal function * Strict I/O * Avoid potential nephrotoxins * Nephrology will follow peripherally Subjective Date of service: 06/03/21 Principal diagnosis: Overdose Interval history: Chart, vitals, labs reviewed. Reintubated 06/01, FiO2 50% Objective - Exam Narrative Exam: General appearance: well-developed, well-nourished, on vent EENT: ET tube in place Respiratory: Present: Other (coarse BS) Cardiology: regular, S1S2 Gastrointestinal: no distended Integumentary: warm and dry - Vital Signs Vital signs: Vital Signs - 12hr 06/03/21 06/03/21 06/03/21 02:00 02:30 03:00 Temperature Pulse Rate 67 67 68 Pulse Rate [ Right Dorsalis Pedis] Respiratory 21 21 20 Rate Blood Pressure 96/47 100/49 98/50 O2 Sat by Pulse 99 98 98 Oximetry 06/03/21 06/03/21 06/03/21 03:30 03:33 03:34 Temperature Pulse Rate 67 68 Pulse Rate [ 67 Right Dorsalis Pedis] Respiratory 20 20 Rate Blood Pressure 101/49 O2 Sat by Pulse 97 98 Oximetry 06/03/21 06/03/21 06/03/21 04:00 04:11 04:30 Temperature 98.0 F Pulse Rate 68 67 68 Pulse Rate [ Right Dorsalis Pedis] Respiratory 20 20 Rate Blood Pressure 102/51 102/51 97/49 O2 Sat by Pulse 99 98 97 Oximetry 06/03/21 06/03/21 06/03/21 05:00 05:30 06:00 Temperature Pulse Rate 67 67 67 Pulse Rate [ Right Dorsalis Pedis] Respiratory 20 21 20 Rate Blood Pressure 98/50 99/50 98/48 O2 Sat by Pulse 98 97 98 Oximetry 01/06/03/21 06/03/21 06:30 07:00 07:30 Temperature Pulse Rate 113 H 123 H 121 H Pulse Rate [ Right Dorsalis Pedis] Respiratory 15 15 22 Rate Blood Pressure 101/48 127/67 129/55 O2 Sat by Pulse 98 97 97 Oximetry 06/03/21 06/03/21 06/03/21 08:00 08:31 09:00 Temperature 100.7 F H Pulse Rate 117 H 116 H 142 H Pulse Rate [ Right Dorsalis Pedis] Respiratory 16 17 24 Rate Blood Pressure 107/61 149/77 145/80 O2 Sat by Pulse 100 98 90 Oximetry 06/03/21 06/03/21 06/03/21 09:31 10:00 10:30 Temperature Pulse Rate 137 H 98 H 79 Pulse Rate [ Right Dorsalis Pedis] Respiratory 28 H 20 21 Rate Blood Pressure 155/71 95/50 95/47 O2 Sat by Pulse 98 98 98 Oximetry 06/03/21 06/03/21 06/03/21 11:01 11:30 11:40 Temperature 99.2 F Pulse Rate 72 70 Pulse Rate [ Right Dorsalis Pedis] Respiratory 20 20 Rate Blood Pressure 103/51 106/50 O2 Sat by Pulse 99 99 Oximetry 06/03/21 12:00 Temperature Pulse Rate 68 Pulse Rate [ Right Dorsalis Pedis] Respiratory 20 Rate Blood Pressure 101/49 O2 Sat by Pulse 99 Oximetry - Lab 06/03/21 08:29 06/02/21 20:00 Most recent lab results ABG pH 7.367 pH Units (7.350-7.450) 06/02/21 05:42 ABG pCO2 54.4 mm Hg 06/02/21 05:42 ABG pO2 141.2 mm Hg (80.0-90.0) H 06/02/21 05:42 ABG HCO3 30.6 mmol/L (20.0-26.0) H 06/02/21 05:42 ABG O2 Saturation 98.6 % (95.0-99.0) 06/02/21 05:42 Calcium 8.3 mg/dL (8.4-10.2) L 06/02/21 20:00 Phosphorus 3.00 mg/dL (2.5-4.5) 06/02/21 07:41 Magnesium 1.70 mg/dL (1.7-2.3) 06/02/21 07:41 Medications & Allergies - Medications Allergies/Adverse Reactions: Allergies No Known Allergies Allergy (Verified 05/26/21 10:09) Home Medications: Home Medications Medication Instructions Recorded Confirmed Last Taken Type Unobtainable 09/13/13 09/13/13 Unknown History Active Medications: Generic Name Dose Route Start Last Admin Trade Name Freq PRN Reason Stop Dose Admin Acetaminophen 650 mg 05/23/21 11:43 05/31/21 03:22 Acetaminophen 650 Mg Rect Supp SC 650 mg Q6H PRN Administration Pain MILD(1-3)/Fever >100.5/EPSTEIN Lipase/Protease/Amylase 1 each 05/29/21 08:45 Lipase 10,500/Protease 25,000/Amylase 43,750 (Units) Dr Cap FEEDTUBE PRN PRN For Clogged Feeding Tube Dextrose 0 ml 05/31/21 10:47 Dextrose 10% *Hypoglycemia IV PRN PRN Hypoglycemia Famotidine 40 mg 06/02/21 22:00 06/02/21 20:59 Famotidine 20 Mg Tab FEEDTUBE 40 mg QHS MARK Administration Fentanyl 50 mcg 06/01/21 12:29 Fentanyl 100 Mcg/2 Ml Inj IV Q10MIN PRN ANALGESIA Haloperidol Lactate 5 mg 05/30/21 12:18 06/01/21 09:27 Haloperidol Lactate 5 Mg/1 Ml Inj IV 5 mg Q6H PRN Administration Agitation Hydrophilic Ointment 1 applic 06/01/21 12:30 Lip Therapy Vaseline TP Q2HR PRN Dry Lips Dexmedetomidine HCl 400 mcg/ 104 mls @ 5.307 mls/hr 05/24/21 05:00 06/03/21 10:46 Sodium Chloride IV 1.2 mcg/kg/hr TITRATE MARK 31.842 mls/hr Administration Protocol 0.2 MCG/KG/HR Fentanyl Citrate 2,000 mcg in 100 mls @ 5.103 mls/hr 06/01/21 13:00 06/03/21 10:46 Fentanyl Drip Premix IV 4 mcg/kg/hr TITR MARK 20.412 mls/hr Administration Protocol 1 MCG/KG/HR Propofol 1,000 mg in 100 mls @ 3.062 mls/hr 06/01/21 12:10 06/03/21 11:03 Diprivan 10 Mg/Ml IV 45 mcg/kg/min TITR MARK 27.556 mls/hr Administration Protocol 5 MCG/KG/MIN Ampicillin Sodium/Sulbactam Sodium 3 gm in 100 mls @ 200 mls/hr 06/03/21 11:00 06/03/21 10:45 Unasyn/Ns 3 Gm/100 Ml IV 200 mls/hr Q6H MARK Administration Protocol Midazolam HCl 100 mg/ Sodium 100 mls @ 1 mls/hr 06/03/21 11:00 06/03/21 10:46 Chloride IV 1 mg/hr TITR MARK 1 mls/hr Administration Protocol 1 MG/HR Lorazepam 2 mg 05/31/21 11:00 06/03/21 09:20 Lorazepam 2 Mg/Ml Vial IV 2 mg Q4H PRN Administration Agitation Midazolam HCl 2 mg 06/03/21 10:06 Midazolam 2 Mg/2 Ml Inj IV Q10MIN PRN Sedation Midodrine 5 mg 06/02/21 12:00 06/03/21 10:45 Midodrine 5 Mg Tab PO 5 mg TID@0800,1200,1600 MARK Administration Multi-Ingred Cream/Lotion/Oil/Oint 1 applic 06/01/21 12:30 Mineral Oil/Petrolatum, White Ophth Oint 3.5 Gm OU Q4HR PRN Dry Eye(s) Ondansetron HCl 4 mg 05/23/21 11:43 Ondansetron 4 Mg/2 Ml Inj IV Q8H PRN Nausea And Vomiting Senna/Docusate Sodium 1 tab 06/01/21 22:00 06/03/21 10:45 Sennosides/Docusate Sodium 8.6/50 Mg Tab FEEDTUBE 1 tab BID MARK Administration Simple Syrup 15 ml 05/29/21 08:45 Simple Syrup 15 Ml FEEDTUBE PRN PRN Hypoglycemia Simple Syrup 30 ml 05/29/21 08:45 Simple Syrup 15 Ml FEEDTUBE PRN PRN Hypoglycemia Sodium Bicarbonate 325 mg 05/29/21 08:45 Sodium Bicarbonate 325 Mg Tab FEEDTUBE PRN PRN For Clogged Feeding Tube Sodium Chloride 10 ml 05/23/21 22:00 06/03/21 10:48 Sodium Chloride 0.9% 10 Ml Flush Syringe IV 10 ml BID MARK Administration Sodium Chloride 10 ml 05/23/21 11:43 Sodium Chloride 0.9% 10 Ml Flush Syringe IV PRN PRN LINE FLUSH Sodium Chloride 10 ml 05/31/21 09:50 06/01/21 12:32 Sodium Chloride 0.9% 50 Ml Ivpb IV 10 ml PRN PRN Administration FLUSH Vitamin B Complex/Folic Acid 1 each 05/30/21 10:00 06/03/21 10:45 Folbee Plus Cz (Folic Acid/Vit Bcomp&C/Cu/Znox) PO 1 each QDAY MARK Administration
--- NOTE | 2021-06-03 14:33 | Vascular Lab Report ---
DUPLEX DOPPLER UPPER EXTREMITY VENOUS, RIGHT INDICATION / CLINICAL INFORMATION: swelling. TECHNIQUE: Duplex doppler imaging was performed through the veins of the right upper extremity using venous compression and other maneuvers. COMPARISON: None available. FINDINGS: RIGHT INTERNAL JUGULAR VEIN: Negative. RIGHT SUBCLAVIAN VEIN: Occlusive thrombus. RIGHT AXILLARY VEIN: Negative. RIGHT BRACHIAL VEIN: Nonocclusive thrombus. RIGHT FOREARM VEINS: Negative. RIGHT BASILIC VEIN (SUPERFICIAL): Negative. ADDITIONAL FINDINGS: None. IMPRESSION: 1. Foci of nonocclusive and occlusive DVT within the right upper extremity, as described above. The results were communicated by the drawbridge tender to Sharron at 1128. Scribed by: Manda Saha RDMS, RVT Scribed: 06/03/2021 1:11 PM I have reviewed the images, agree with this report, and edited this report as needed. Signer Name: Nacho Weeks MD Signed: 06/03/2021 2:28 PM Workstation Name: [id number]
[2021-06-03] MEDS ORDERED: HEPARIN 10,000 UNITS/10 ML VIAL IV PRN (15:02)
--- NOTE | 2021-06-03 15:11 | Event Note ---
Date: 06/03/21 Patient with a history of PICC line placed in the right upper arm brachial vein. Was noted to have increased right arm swelling and the PICC line was removed by the ICU team. PICC line was noted to be intact on removal. Given the patient's right arm swelling, an ultrasound was obtained. The robotic welder commented to the ICU care team that the patient appeared to have what was retained catheter fragments from the PICC line in the patient's right arm. I was asked to see the patient and using portable ultrasound noted what appeared to be fibrin sheath as well as the described thrombus. However, given the comments a CT of the patient's right upper arm without contrast will be performed to document that there are no radiopaque fragments in the right upper arm.
--- NOTE | 2021-06-03 15:23 | Procedure Note ---
<NAUN RASHID - Last Filed: 06/03/21 15:34> Date of procedure: 06/03/21 Post-op diagnosis: same Procedure: Statement of consent: Consent obtained from mother over telephone, Kathy Méndez at [phone] Triple-lumen catheter was placed in right femoral. Sterile technique was utilized. Patient prepped and placed in trendelenburg position. Area prepped with chlorhexidine/ full body drape utilized. Target vessel visualized with ultrasound. Using seldinger technique, a finder needle was used to puncture target vessel. Wire was threaded through the needle, skin was nicked and needle was withdrawn over wire. A dilator was passed over the wire and tract was dilated. A central venous catheter was threaded over the wire. All three ports withdrew blood and flushed without difficulty with saline. Line sutured in place, biopatch placed and dressed with tegaderm. Pt tolerated procedure well. VS remained stable throughout procedure. (time spent placing line not included in daily critical care time) CCT: 60 mins Anesthesia: local Surgeon: NAUN RASHID Estimated blood loss: none Condition: critical Disposition: ICU <MAVIS CARVAHLO - Last Filed: 06/14/21 18:47> Procedure: I saw and evaluated the patient. Discussed with the nurse practitioner and agree with their findings and plan as documented in this note.
--- NOTE | 2021-06-03 15:32 | Event Note ---
Date: 06/03/21 Patient chart reviewed and discussed with Dr. Motley. Patient is an acceptable candidate for trach and PEG. I discussed the indication for the procedures along with risks/benefits/alternatives with the patient's mother over the telephone. She is agreeable to proceed. Explained that trach and PEG will not affect patient's current mental status. Consent obtained and witnessed by patient's RN. Patient added to the OR schedule for tomorrow. Plan: 1. Hold TF after MN tonight 2. Pt found to have acute DVT and being started on heparin gtt. Instructed team to hold hepgtt at 6 am tomorrow for procedure. Will resume without bolus 6 hours after procedure is completed 3. vent management per ICU team
--- NOTE | 2021-06-03 15:47 | Progress Note ---
<NAUN RASHID - Last Filed: 06/03/21 15:40> Assessment and Plan Assessment and plan: This is a 40-year-old male with HFrEF, methamphetamine and nicotine dependence admitted for drug overdose and acute metabolic encephalopathy. Patient was intubated in the emergency department for airway protection. Assessment and Plan Acute toxic metabolic encephalopathy, overdose, h/o polysubstance abuse -UDS positive for amphetamines -Sedated with Precedex, propofol and fentayl gtt -added versed -CTH with no acute findings -MRI Brain pending -Maintain sleep-wake cycle -Reorientation as needed -Consider mental evaluation to assess for readiness to stop polysubstance abuse Acute hypoxic respiratory failure -Intubated on 05/23 in the ED for airway protection with 7.50 ETT at 24 at the lips and extubated 05/31 -Patient reintubated on 06/01 due to tachypnea and increased work of breathing with 7.50 ETT at 24 the lips -Vent settings: AC rate 20, tidal volume 350, FiO2 40, PEEP 8 -See RT notes for titration -surgery consulted for peg/trach -Pulmonary hygiene -SPO2 monitoring Acute right upper extremity DVT -Heparin drip -Hold 4 hours preprocedure -Traction per protocol -Noted on right upper extremity DVT Possible Retained foreign object in right upper extremity -Noted by hematology technician -Vascular surgery consulted, appreciate recommendations -Bedside ultrasound by Dr. Angie orr who stated it appeared to be is fibrin sheath however will obtain CT of upper extremity to confirm no retained object Acute kidney injury secondary to acute tubular necrosis (resolved), hypernatremia (imporved), hypokalemai (resolved) -BUN/creatinine increased to 3.5/33 -Nephrology consulted, appreciate recommendations -Strict intake and output -Maintain Fajardo catheter -Avoid nephrotoxic medications -Renally dose medications -Trend BMP -Free water flush -Replete potassium Sepsis (POA), lactic acidosis, leukocytosis -Presented with febrile illness, lactic acidosis, leukocytosis now with hypotension -COVID-19 PCR negative -UA negative -Blood culture/urine culture no growth to date -Tracheal aspirate with beta-hemolytic strep group F -S/p ABX for 3 days -S/p vasopressor support -Monitor fever and WBC curve -Started on Unsyn HFrEF, cardiomegaly - Cardiology on consult, appreciated recommendations -Per cardiology -05/25/2021: Echo- EF 20 to 25%. Severe global hypokinesis of left ventricle. Left ventricle is moderately dilated. Doppler flow suggests impaired LV relaxation. Moderate mitral regurgitation. No pericardial effusion -08/04/2020: Cardiac cath- Angiographically normal coronary arteries. This is indicative of a nonischemic cardiomyopathy. Mildly elevated biventricular filling pressures with normal cardiac index -08/02/2020: Echo- EF 18%,Severe global LV hypokinesis. Normal LV diastolic function. LA mildly dilated. Moderate mitral regurgitation with an eccentric MR jet(s),No previous echocardiogram for comparison. -IV Lasix -Discontinued due to euvolemia and worsening renal function -midodrine tid DVT/GI prophylaxis -Heparin gtt, PPI -SCD to bilateral lower extremities while in bed -Trend CBC -Transfuse for hemoglobin less than seven The high probability of a clinically significant, sudden or life threatening deterioration of the [multiple] system(s) required my full and direct attention, intervention and personal management. The aggregate critical care time was [60] minutes. This time is in addition to time spent performing reported procedures but includes the following: [x] Data Review and interpretation [x] Patient assessment and monitoring of vital signs [x] Documentation [x] Medication orders and management Disposition Plan: ICU Total Time Spent with Patient (Minutes): 60 Disposition Plan: icu Total Time Spent with Patient (Minutes): 60 History Interval history: This is a 40-year-old male with methamphetamine and nicotine dependence who presented to the emergency department via EMS was called after the being found down and unresponsive by family. Per family patient "overdose on GHB." EMS administered intranasal Narcan without improvement in symptoms and transferred the patient to [facility] for further evaluation. Patient was intubated in the emergency department for airway protection. Patient was admitted to the hospital service with acute encephalopathy, hypothermia, respiratory failure with consults to [facility]. Hospital Course to date: 05/25/2021: Worsening interstitial infiltrates. unclear if this is a developing pneumonia from aspiration/volume overload. Empiric abx coverage. ECHO with bubble study ordered. Placed on iv abx. kidney function improving. 05/26/2021: Tachycardic on levo gtt, advised RN to titrate down as long as MAP > 65. HR improved on my follow up encounter. PCCM titrating vent down. Renal function improving....Cr now 1.3. No indication for SENIOR ONLINE MARKETING MANAGER at this time per nephro. 05/27/2021: Extubated yesterday however in respiratory distress, re-intubated. Patient has severe systolic heart failure. Cardiology consulted for severe systolic heart failure. Will need to discuss optimal strategy regarding diuresis. 05/28: Patient remains on the vent. Febrile overnight, no longer on IV abx, leukocytosis improved, will panculture patient for now hold off on IV Abx. D/W CCM plan to wean sedation, depends on patient's mental status possible extubation today. Patient with low EF 20 to 25%, IVF D/nickolas. FWF for hypernatrenia, repeat lab in the am. 05/29- With increased agitation and tachycardia, maxed out on precedex and fentanyl gtt. Patient appears to be in withdrawal, Ativan added. Remains febrile, off pressors this am, leukocytosis improved. Continue to f/u on culture data. Hypernatremia this am, on D5w per nephro, electrolyte repleted, repeat labs in the am 05/30: Patient very aggresive this am maxed on sedation, X1 dose of Geodeon ordered. Now on low dose Levophed, patient still with low grade fevers this am. Hypotension is probably r/t sedation. Recent cultures with NGTD, UA negative. Continue to monitor for now. Na improved, IVF off this and K repleted, repeat labs in the am. 05/31: Patient was extubated today, IV fluid discontinued, given Lasix per cardiology, increasing free water flush. Weaned off Levophed. Patient noted to be lethargic several hours post Precedex infusion discontinuation. Patient extubated to BiPAP after given racemic epinephrine. Patient remains lethargic and off of BiPAP will consider CT head in the a.m. 06/01: Patient remained on BiPAP overnight, given agitation as needed Hald ol/Ativan and Benadryl given while patient remained maxed on Precedex. Given increased work of breathing and tachypnea patient was electively reintubated. Free water flushes/tube feeding/p.o. medications to restart upon confirmation of DHT. Lasix stopped per cardiology recommendations. CT head ordered. 06/02: Started on midodrine 3 times daily per cardiology as patient has soft blood pressures and required Levophed overnight. Upper extremity with PICC noted to have significant swelling and possible discoloration around insertion site. Ordered RN to remove PICC and use peripheral IVs as patient does not have any medications requiring central access at this time. Hypernatremia worsened however patient did not receive multiple doses of free water flush while on continuous BiPAP. [facility] made vent changes. Surgery consulted. 06/03: Patient noted to have an acute DVT in right upper extremity and started on heparin drip. senior technical editor noted possible foreign object retained and vascular surgery was consulted. Obtain CT of upper extremity. Surgery was consulted for trach/PEG. Patient remains on max doses of fentanyl, propofol and Precedex. Versed added. Started on Unasyn. MRI brain ordered. Hospitalist Physical - Constitutional Vitals: Temp Pulse Resp BP Pulse Ox 99.2 F 67 20 107/52 96 06/03/21 11:40 06/03/21 14:00 06/03/21 14:00 06/03/21 14:00 06/03/21 14:00 General appearance: Present: mild distress, obese, other (Intubated and sedated) - EENT Eyes: Present: PERRL, EOM intact ENT: hearing intact, clear oral mucosa, dentition normal - Neck Neck: Present: supple, normal ROM - Respiratory Respiratory effort: normal Respiratory: bilateral: diminished - Cardiovascular Rhythm: regular Heart Sounds: Present: S1 & S2. Absent: systolic murmur, diastolic murmur - Extremities Extremities: no ischemia, pulses intact, pulses symmetrical, normal temperature, normal color, Full ROM - Peripheral Assessment Right Upper Extremity Edema Type: Non-pitting Capillary Refill: < 3 seconds Skin Temperature: Warm Peripheral Pulses: within normal limits - Abdominal General gastrointestinal: soft, non-tender, non-distended, normal bowel sounds - Integumentary Integumentary: Present: warm, dry - Psychiatric Psychiatric: agitated - Neurologic Neurologic: moves all extremities - Allied Health Allied health notes reviewed: nursing, RT, social work HEART Score - HEART Score Troponin: Troponin T < 0.010 ng/mL (0.00-0.029) 05/23/21 09:38 Results - Labs CBC & Chem 7: 06/03/21 08:29 06/02/21 20:00 Labs: Laboratory Last Values WBC 12.2 K/mm3 (4.5-11.0) H 06/03/21 08:29 RBC 4.28 M/mm3 (3.65-5.03) 06/03/21 08:29 Hgb 11.7 gm/dl (11.8-15.2) L 06/03/21 08:29 Hct 37.9 % (35.5-45.6) 06/03/21 08:29 MCV 89 fl (84-94) 06/03/21 08:29 MCH 27 pg (28-32) L 06/03/21 08:29 MCHC 31 % (32-34) L 06/03/21 08:29 RDW 15.4 % (13.2-15.2) H 06/03/21 08:29 Plt Count 415 K/mm3 (140-440) 06/03/21 08:29 Lymph % (Auto) 11.2 % (13.4-35.0) L 05/28/21 10:05 [place] % (Auto) 8.6 % (0.0-7.3) H 05/28/21 10:05 Eos % (Auto) 0.8 % (0.0-4.3) 05/28/21 10:05 Baso % (Auto) 0.5 % (0.0-1.8) 05/28/21 10:05 Lymph # (Auto) 1.3 K/mm3 (1.2-5.4) 05/28/21 10:05 [place] # (Auto) 1.0 K/mm3 (0.0-0.8) H 05/28/21 10:05 Eos # (Auto) 0.1 K/mm3 (0.0-0.4) 05/28/21 10:05 Baso # (Auto) 0.1 K/mm3 (0.0-0.1) 05/28/21 10:05 Add Manual Diff Complete 05/27/21 03:18 Total Counted 100 05/27/21 03:18 Seg Neutrophils % 78.9 % (40.0-70.0) H 05/28/21 10:05 Seg Neuts % (Manual) 92.0 % (40.0-70.0) H 05/27/21 03:18 Band Neutrophils % 0 % 05/27/21 03:18 Lymphocytes % (Manual) 5.0 % (13.4-35.0) L 05/27/21 03:18 Reactive Lymphs % (Man) 0 % 05/27/21 03:18 Monocytes % (Manual) 3.0 % (0.0-7.3) 05/27/21 03:18 Eosinophils % (Manual) 0 % (0.0-4.3) 05/27/21 03:18 Basophils % (Manual) 0 % (0.0-1.8) 05/27/21 03:18 Metamyelocytes % 0 % 05/27/21 03:18 Myelocytes % 0 % 05/27/21 03:18 Promyelocytes % 0 % 05/27/21 03:18 Blast Cells % 0 % 05/27/21 03:18 Nucleated RBC % Not Reportable 05/27/21 03:18 Seg Neutrophils # 9.0 K/mm3 (1.8-7.7) H 05/28/21 10:05 Seg Neutrophils # Man 19.8 K/mm3 (1.8-7.7) H 05/27/21 03:18 Band Neutrophils # 0.0 K/mm3 05/27/21 03:18 Lymphocytes # (Manual) 1.1 K/mm3 (1.2-5.4) L 05/27/21 03:18 Abs React Lymphs (Man) 0.0 K/mm3 05/27/21 03:18 Monocytes # (Manual) 0.6 K/mm3 (0.0-0.8) 05/27/21 03:18 Eosinophils # (Manual) 0.0 K/mm3 (0.0-0.4) 05/27/21 03:18 Basophils # (Manual) 0.0 K/mm3 (0.0-0.1) 05/27/21 03:18 Metamyelocytes # 0.0 K/mm3 05/27/21 03:18 Myelocytes # 0.0 K/mm3 05/27/21 03:18 Promyelocytes # 0.0 K/mm3 05/27/21 03:18 Blast Cells # 0.0 K/mm3 05/27/21 03:18 WBC Morphology Not Reportable 05/27/21 03:18 Hypersegmented Neuts Not Reportable 05/27/21 03:18 Hyposegmented Neuts Not Reportable 05/27/21 03:18 Hypogranular Neuts Not Reportable 05/27/21 03:18 Smudge Cells Not Reportable 05/27/21 03:18 Toxic Granulation Not Reportable 05/27/21 03:18 Toxic Vacuolation Not Reportable 05/27/21 03:18 Dohle Bodies Not Reportable 05/27/21 03:18 Pelger-Huet Anomaly Not Reportable 05/27/21 03:18 Glenn Rods Not Reportable 05/27/21 03:18 Platelet Estimate Consistent w auto 05/27/21 03:18 Clumped Platelets Not Reportable 05/27/21 03:18 Plt Clumps, EDTA Not Reportable 05/27/21 03:18 Large Platelets Not Reportable 05/27/21 03:18 Giant Platelets Not Reportable 05/27/21 03:18 Platelet Satelliting Not Reportable 05/27/21 03:18 Plt Morphology Comment Not Reportable 05/27/21 03:18 RBC Morphology Normal 05/27/21 03:18 Dimorphic RBCs Not Reportable 05/27/21 03:18 Polychromasia Not Reportable 05/27/21 03:18 Hypochromasia Not Reportable 05/27/21 03:18 Poikilocytosis Not Reportable 05/27/21 03:18 Anisocytosis Not Reportable 05/27/21 03:18 Microcytosis Not Reportable 05/27/21 03:18 Macrocytosis Not Reportable 05/27/21 03:18 Spherocytes Not Reportable 05/27/21 03:18 Pappenheimer Bodies Not Reportable 05/27/21 03:18 Sickle Cells Not Reportable 05/27/21 03:18 Target Cells Not Reportable 05/27/21 03:18 Tear Drop Cells Not Reportable 05/27/21 03:18 Ovalocytes Not Reportable 05/27/21 03:18 Helmet Cells Not Reportable 05/27/21 03:18 [place] Bodies Not Reportable 05/27/21 03:18 [place] Rings Not Reportable 05/27/21 03:18 Giorgio Cells Not Reportable 05/27/21 03:18 Bite Cells Not Reportable 05/27/21 03:18 Crenated Cell Not Reportable 05/27/21 03:18 Elliptocytes Not Reportable 05/27/21 03:18 Acanthocytes (Spur) Not Reportable 05/27/21 03:18 Rouleaux Not Reportable 05/27/21 03:18 Hemoglobin C Crystals Not Reportable 05/27/21 03:18 Schistocytes Not Reportable 05/27/21 03:18 Malaria parasites Not Reportable 05/27/21 03:18 Frandy Bodies Not Reportable 05/27/21 03:18 Hem Pathologist Commnt No 05/27/21 03:18 ABG pH 7.367 pH Units (7.350-7.450) 06/02/21 05:42 POC ABG pCO2 41.6 mmHg (32.0-48.0) 05/24/21 03:44 ABG pCO2 54.4 mm Hg 06/02/21 05:42 POC ABG pO2 87.6 mmHg (83-108) 05/24/21 03:44 ABG pO2 141.2 mm Hg (80.0-90.0) H 06/02/21 05:42 POC ABG HCO3 17.5 05/24/21 03:44 ABG HCO3 30.6 mmol/L (20.0-26.0) H 06/02/21 05:42 ABG O2 Saturation 98.6 % (95.0-99.0) 06/02/21 05:42 ABG O2 Content 16.6 (0.0-44) 06/02/21 05:42 POC ABG Base Excess -9.5 05/24/21 03:44 ABG Base Excess 4.1 mmol/L (-2.0-3.0) H 06/02/21 05:42 ABG Hemoglobin 12.0 gm/dl (14.0-18.0) L 06/02/21 05:42 ABG Oxyhemoglobin 94.8 (94-98) 05/24/21 03:44 ABG Carboxyhemoglobin 1.5 % (0.0-5.0) 06/02/21 05:42 ABG Methemoglobin 0.5 % (0.0-1.5) 06/02/21 05:42 ABG Sodium 137.9 mmol/L (136.0-145.0) 05/24/21 03:44 ABG Potassium 5.6 mmol/L (3.40-4.50) H 05/24/21 03:44 ABG Chloride 105.0 mmol/L (98-107) 05/24/21 03:44 ABG Glucose 53 mg/dL (65-95) L 05/24/21 03:44 Oxyhemoglobin 96.7 % (95.0-99.0) 06/02/21 05:42 Carboxyhemoglobin 0.8 (0.5-1.5) 05/24/21 03:44 FiO2 50 % 06/02/21 05:42 FiO2 % 100.0 05/24/21 03:44 Sodium 145 mmol/L (137-145) 06/02/21 20:00 Potassium 4.2 mmol/L (3.6-5.0) 06/02/21 20:00 Chloride 111.1 mmol/L (98-107) H 06/02/21 20:00 Carbon Dioxide 25 mmol/L (22-30) 06/02/21 20:00 Anion Gap 14 mmol/L 06/02/21 07:41 BUN 15 mg/dL (9-20) 06/02/21 20:00 Creatinine 0.7 mg/dL (0.8-1.3) L 06/02/21 20:00 Estimated GFR > 60 ml/min 06/02/21 20:00 BUN/Creatinine Ratio 21 % 06/02/21 20:00 Glucose 105 mg/dL (75-100) H 06/02/21 20:00 POC Glucose 103 mg/dL (70-105) 06/03/21 11:15 Lactic Acid 2.10 mmol/L (0.7-2.0) H* 05/28/21 10:05 Calcium 8.3 mg/dL (8.4-10.2) L 06/02/21 20:00 Phosphorus 3.00 mg/dL (2.5-4.5) 06/02/21 07:41 Magnesium 1.70 mg/dL (1.7-2.3) 06/02/21 07:41 Total Bilirubin 2.90 mg/dL (0.1-1.2) H 06/02/21 20:00 Direct Bilirubin 2.4 mg/dL (0-0.2) H 06/02/21 07:41 Indirect Bilirubin 0.9 mg/dL 06/02/21 07:41 AST 53 units/L (5-40) H 06/02/21 20:00 ALT 30 units/L (7-56) 06/02/21 20:00 Alkaline Phosphatase 115 units/L (35-129) 06/02/21 20:00 Total Creatine Kinase 556 units/L (55-170) H 05/24/21 09:35 Troponin T < 0.010 ng/mL (0.00-0.029) 05/23/21 09:38 C-Reactive Protein 34.80 mg/dL (0.00-1.30) H 05/28/21 10:05 NT-Pro-B Natriuret Pep 6058 pg/mL (0-450) H 05/23/21 09:38 Total Protein 6.2 g/dL (6.3-8.2) L 06/02/21 20:00 Albumin 1.8 g/dL (3.9-5) L 06/02/21 20:00 Albumin/Globulin Ratio 0.4 % 06/02/21 20:00 Procalcitonin 12.51 ng/mL (<0.15) 05/28/21 10:05 Arterial Blood Glucose 53 mg/dL (65-95) L 05/24/21 03:44 Arterial Blood Ionized Calcium 4.6 mg/dL (4.6-5.3) 05/24/21 03:44 Urine Color Sherri (Yellow) 05/28/21 12:20 Urine Turbidity Clear (Clear) 05/28/21 12:20 Urine pH 6.0 (5.0-7.0) 05/28/21 12:20 Ur Specific [place] 1.017 (1.003-1.030) 05/28/21 12:20 Urine Protein 30 mg/dl mg/dL (Negative) 05/28/21 12:20 Urine Glucose (UA) Neg mg/dL (Negative) 05/28/21 12:20 Urine Ketones Neg mg/dL (Negative) 05/28/21 12:20 Urine Blood Mod (Negative) 05/28/21 12:20 Urine Nitrite Neg (Negative) 05/28/21 12:20 Urine Bilirubin Mod (Negative) 05/28/21 12:20 Urine Ictotest Positive (Negative) 05/28/21 12:20 Urine Urobilinogen 4.0 mg/dL (<2.0) 05/28/21 12:20 Ur Leukocyte Esterase Neg (Negative) 05/28/21 12:20 Urine WBC (Auto) 3.0 /HPF (0.0-6.0) 05/28/21 12:20 Urine RBC (Auto) 4.0 /HPF (0.0-6.0) 05/28/21 12:20 U Epithel Cells (Auto) < 1.0 /HPF (0-13.0) 05/28/21 12:20 Urine Bacteria (Auto) 1+ /HPF (Negative) 05/28/21 12:20 Urine Mucus Few /HPF 05/28/21 12:20 Urine Yeast (Budding) 1+ /HPF 05/24/21 Unknown Salicylates < 0.3 mg/dL (2.8-20.0) L 05/23/21 09:38 Urine Opiates Screen Negative 05/23/21 09:41 Urine Methadone Screen Negative 05/23/21 09:41 Acetaminophen 5.0 ug/mL (10.0-30.0) L 05/23/21 09:38 Ur Barbiturates Screen Negative 05/23/21 09:41 Ur Phencyclidine Scrn Negative 05/23/21 09:41 Ur Amphetamines Screen Positive 05/23/21 09:41 U Benzodiazepines Scrn Negative 05/23/21 09:41 Urine Cocaine Screen Negative 05/23/21 09:41 U Marijuana (THC) Screen Negative 05/23/21 09:41 Drugs of Abuse Note Disclamer 05/23/21 09:41 Coronavirus (PCR) Negative (Negative) 05/26/21 08:14 Hepatitis A IgM Ab Non-reactive (NonReactive) 05/27/21 16:00 Hep Bs Antigen Non-reactive (Negative) 05/27/21 16:00 Hep B Core IgM Ab Non-reactive (NonReactive) 05/27/21 16:00 Hepatitis C Antibody Non-reactive (NonReactive) 05/27/21 16:00 Microbiology: Microbiology 06/01/21 12:25 Tracheal Aspirate Sputum Culture - Preliminary 05/28/21 10:05 Peripheral/Venous Blood Culture - Final NO GROWTH AFTER 5 DAYS 05/28/21 10:05 Peripheral/Venous Blood Culture - Final NO GROWTH AFTER 5 DAYS Fajardo/IV: Voiding Method Indwelling Catheter Active Medications - Current Medications Current Medications: Generic Name Dose Route Start Last Admin Trade Name Freq PRN Reason Stop Dose Admin Acetaminophen 650 mg 05/23/21 11:43 05/31/21 03:22 Acetaminophen 650 Mg Rect Supp FL 650 mg Q6H PRN Administration Pain MILD(1-3)/Fever >100.5/EPSTEIN Lipase/Protease/Amylase 1 each 05/29/21 08:45 Lipase 10,500/Protease 25,000/Amylase 43,750 (Units) Dr Cap FEEDTUBE PRN PRN For Clogged Feeding Tube Dextrose 0 ml 05/31/21 10:47 Dextrose 10% *Hypoglycemia IV PRN PRN Hypoglycemia Famotidine 40 mg 06/02/21 22:00 06/02/21 20:59 Famotidine 20 Mg Tab FEEDTUBE 40 mg QHS MARK Administration Fentanyl 50 mcg 06/01/21 12:29 Fentanyl 100 Mcg/2 Ml Inj IV Q10MIN PRN ANALGESIA Haloperidol Lactate 5 mg 05/30/21 12:18 06/01/21 09:27 Haloperidol Lactate 5 Mg/1 Ml Inj IV 5 mg Q6H PRN Administration Agitation Heparin Sodium (Porcine) 7,100 unit 06/03/21 16:02 Heparin 10,000 Units/10 Ml Vial 70 unit/kg (7100 unit) 06/03/21 16:03 IV ONCE ONE Heparin Sodium (Porcine) 4,100 unit 06/03/21 15:02 Heparin 10,000 Units/10 Ml Vial 40 unit/kg (4100 unit) IV Q6H PRN Anti-Xa Assay < 0.1 units/ml Hydrophilic Ointment 1 applic 06/01/21 12:30 Lip Therapy Vaseline TP Q2HR PRN Dry Lips Dexmedetomidine HCl 400 mcg/ 104 mls @ 5.307 mls/hr 05/24/21 05:00 06/03/21 14:18 Sodium Chloride IV 1.4 mcg/kg/hr TITRATE MARK 37.149 mls/hr Administration Protocol 0.2 MCG/KG/HR Fentanyl Citrate 2,000 mcg in 100 mls @ 5.103 mls/hr 06/01/21 13:00 06/03/21 15:25 Fentanyl Drip Premix IV 4 mcg/kg/hr TITR MARK 20.412 mls/hr Administration Protocol 1 MCG/KG/HR Propofol 1,000 mg in 100 mls @ 3.062 mls/hr 06/01/21 12:10 06/03/21 11:03 Diprivan 10 Mg/Ml IV 45 mcg/kg/min TITR MARK 27.556 mls/hr Administration Protocol 5 MCG/KG/MIN Ampicillin Sodium/Sulbactam Sodium 3 gm in 100 mls @ 200 mls/hr 06/03/21 11:00 06/03/21 10:45 Unasyn/Ns 3 Gm/100 Ml IV 200 mls/hr Q6H MARK Administration Protocol Midazolam HCl 100 mg/ Sodium 100 mls @ 1 mls/hr 06/03/21 11:00 06/03/21 10:46 Chloride IV 1 mg/hr TITR MARK 1 mls/hr Administration Protocol 1 MG/HR Heparin Sodium/Sodium Chloride 25,000 unit in 500 mls @ 30 mls/hr 06/03/21 16:00 Heparin/ 0.45% Nacl-25,000 Unit/500 Ml IV TITR MARK Protocol 1,500 UNITS/HR Lorazepam 2 mg 05/31/21 11:00 06/03/21 09:20 Lorazepam 2 Mg/Ml Vial IV 2 mg Q4H PRN Administration Agitation Midazolam HCl 2 mg 06/03/21 10:06 Midazolam 2 Mg/2 Ml Inj IV Q10MIN PRN Sedation Midodrine 5 mg 06/02/21 12:00 06/03/21 15:26 Midodrine 5 Mg Tab PO 5 mg TID@0800,1200,1600 [facility] Administration Multi-Ingred Cream/Lotion/Oil/Oint 1 applic 06/01/21 12:30 Mineral Oil/Petrolatum, White Ophth Oint 3.5 Gm OU Q4HR PRN Dry Eye(s) Ondansetron HCl 4 mg 05/23/21 11:43 Ondansetron 4 Mg/2 Ml Inj IV Q8H PRN Nausea And Vomiting Senna/Docusate Sodium 1 tab 06/01/21 22:00 06/03/21 10:45 Sennosides/Docusate Sodium 8.6/50 Mg Tab FEEDTUBE 1 tab BID MARK Administration Simple Syrup 15 ml 05/29/21 08:45 Simple Syrup 15 Ml FEEDTUBE PRN PRN Hypoglycemia Simple Syrup 30 ml 05/29/21 08:45 Simple Syrup 15 Ml FEEDTUBE PRN PRN Hypoglycemia Sodium Bicarbonate 325 mg 05/29/21 08:45 Sodium Bicarbonate 325 Mg Tab FEEDTUBE PRN PRN For Clogged Feeding Tube Sodium Chloride 10 ml 05/23/21 22:00 06/03/21 10:48 Sodium Chloride 0.9% 10 Ml Flush Syringe IV 10 ml BID MARK Administration Sodium Chloride 10 ml 05/23/21 11:43 Sodium Chloride 0.9% 10 Ml Flush Syringe IV PRN PRN LINE FLUSH Sodium Chloride 10 ml 05/31/21 09:50 06/01/21 12:32 Sodium Chloride 0.9% 50 Ml Ivpb IV 10 ml PRN PRN Administration FLUSH Vitamin B Complex/Folic Acid 1 each 05/30/21 10:00 06/03/21 10:45 Folbee Plus Cz (Folic Acid/Vit Bcomp&C/Cu/Znox) PO 1 each QDAY MARK Administration Nutrition/Malnutrition Assess - Dietary Evaluation Nutrition/Malnutrition Findings: Nutrition Notes Start: 05/28/21 12:16 Freq: Status: Active Protocol: Document 05/31/21 15:28 GREGG (Rec: 05/31/21 15:51 GREGG [id number]) Nutrition Notes Initial or Follow up Brief Note Current Diet TF-Vital HP @ 70 ml/hr (since D 05/31). Height 6 ft Weight 102.058 kg [place] Body Weight (kg) 80.90 BMI 30.5 Weight change and time frame No body weight change in 2 days reported. Subjective/Other Information RD consult for routine F/u on TF tolerance. Pt extubated from mechanical ventilation, now on Bi-PaP+ tolerating well. TF continues as prescribed. Percent of energy/protein needs met: Prescribed Vital HP @ 70 ml/hr provides for energy/protein needs (1,655 Kcal/145 g) during LOS, 70% Kcal; 89% AA. #1 Nutrition Diagnosis Inadequate oral intake Diagnosis Progress(for reassessment Continues documentation) Is patient on ventilator? Yes Is Patient Ambulatory and/or Out of Bed No REE-([facility]-confined to bed) [phone] Calculation Used for Recommendations 65-70% energy needs Additional Notes Energy needs: 7061-1611 kcal/ day Pro needs 2g/kg IBW: 162g/day Fluid needs 1ml/kcal Nutrition Intervention Nutrition Support: Continue Vital HP @ 70 ml/hr. Flush: 170 ml water Q 4 hr, or as per MD. Kcal 1,655 Protein (gm) 145 Carbohydrates (gm) 185 Fat (gm) 38 Fluid (mL) 1,384 Fiber (gm) 0 % RDI: 70% Kcal; 89% AA. Goal #1 Provide at least 75% of energy /protein needs through Enteral Feeding during LOS. Goal #2 Maintain body weight within +/ -3% of admission body weight during LOS. Follow-Up By: 06/07/21 Additional Comments Continue monitoring TF tolerance and BM. <MAVIS CARVALHO - Last Filed: 06/14/21 18:48> Assessment and Plan Assessment and plan: I saw and evaluated the patient. Discussed with the nurse practitioner and agree with their findings and plan as documented in this note. Hospitalist Physical - Constitutional Vitals: Temp Pulse Resp BP Pulse Ox 99.9 F H 101 H 25 H 129/57 99 06/10/21 12:00 06/10/21 16:30 06/10/21 16:30 06/10/21 16:30 06/10/21 16:57 HEART Score - HEART Score Troponin: Troponin T < 0.010 ng/mL (0.00-0.029) 05/23/21 09:38 Results - Labs CBC & Chem 7: 06/10/21 05:53 06/10/21 05:53 Labs: Laboratory Last Values WBC 10.8 K/mm3 (4.5-11.0) 06/10/21 05:53 RBC 3.68 M/mm3 (3.65-5.03) 06/10/21 05:53 Hgb 10.3 gm/dl (11.8-15.2) L 06/10/21 05:53 Hct 31.7 % (35.5-45.6) L 06/10/21 05:53 MCV 86 fl (84-94) 06/10/21 05:53 MCH 28 pg (28-32) 06/10/21 05:53 MCHC 32 % (32-34) 06/10/21 05:53 RDW 16.5 % (13.2-15.2) H 06/10/21 05:53 Plt Count 527 K/mm3 (140-440) H 06/10/21 05:53 Lymph % (Auto) 11.2 % (13.4-35.0) L 05/28/21 10:05 [place] % (Auto) 8.6 % (0.0-7.3) H 05/28/21 10:05 Eos % (Auto) 0.8 % (0.0-4.3) 05/28/21 10:05 Baso % (Auto) 0.5 % (0.0-1.8) 05/28/21 10:05 Lymph # (Auto) 1.3 K/mm3 (1.2-5.4) 05/28/21 10:05 [place] # (Auto) 1.0 K/mm3 (0.0-0.8) H 05/28/21 10:05 Eos # (Auto) 0.1 K/mm3 (0.0-0.4) 05/28/21 10:05 Baso # (Auto) 0.1 K/mm3 (0.0-0.1) 05/28/21 10:05 Add Manual Diff Complete 05/27/21 03:18 Total Counted 100 05/27/21 03:18 Seg Neutrophils % 78.9 % (40.0-70.0) H 05/28/21 10:05 Seg Neuts % (Manual) 92.0 % (40.0-70.0) H 05/27/21 03:18 Band Neutrophils % 0 % 05/27/21 03:18 Lymphocytes % (Manual) 5.0 % (13.4-35.0) L 05/27/21 03:18 Reactive Lymphs % (Man) 0 % 05/27/21 03:18 Monocytes % (Manual) 3.0 % (0.0-7.3) 05/27/21 03:18 Eosinophils % (Manual) 0 % (0.0-4.3) 05/27/21 03:18 Basophils % (Manual) 0 % (0.0-1.8) 05/27/21 03:18 Metamyelocytes % 0 % 05/27/21 03:18 Myelocytes % 0 % 05/27/21 03:18 Promyelocytes % 0 % 05/27/21 03:18 Blast Cells % 0 % 05/27/21 03:18 Nucleated RBC % Not Reportable 05/27/21 03:18 Seg Neutrophils # 9.0 K/mm3 (1.8-7.7) H 05/28/21 10:05 Seg Neutrophils # Man 19.8 K/mm3 (1.8-7.7) H 05/27/21 03:18 Band Neutrophils # 0.0 K/mm3 05/27/21 03:18 Lymphocytes # (Manual) 1.1 K/mm3 (1.2-5.4) L 05/27/21 03:18 Abs React Lymphs (Man) 0.0 K/mm3 05/27/21 03:18 Monocytes # (Manual) 0.6 K/mm3 (0.0-0.8) 05/27/21 03:18 Eosinophils # (Manual) 0.0 K/mm3 (0.0-0.4) 05/27/21 03:18 Basophils # (Manual) 0.0 K/mm3 (0.0-0.1) 05/27/21 03:18 Metamyelocytes # 0.0 K/mm3 05/27/21 03:18 Myelocytes # 0.0 K/mm3 05/27/21 03:18 Promyelocytes # 0.0 K/mm3 05/27/21 03:18 Blast Cells # 0.0 K/mm3 05/27/21 03:18 WBC Morphology Not Reportable 05/27/21 03:18 Hypersegmented Neuts Not Reportable 05/27/21 03:18 Hyposegmented Neuts Not Reportable 05/27/21 03:18 Hypogranular Neuts Not Reportable 05/27/21 03:18 Smudge Cells Not Reportable 05/27/21 03:18 Toxic Granulation Not Reportable 05/27/21 03:18 Toxic Vacuolation Not Reportable 05/27/21 03:18 Dohle Bodies Not Reportable 05/27/21 03:18 Pelger-Huet Anomaly Not Reportable 05/27/21 03:18 Glenn Rods Not Reportable 05/27/21 03:18 Platelet Estimate Consistent w auto 05/27/21 03:18 Clumped Platelets Not Reportable 05/27/21 03:18 Plt Clumps, EDTA Not Reportable 05/27/21 03:18 Large Platelets Not Reportable 05/27/21 03:18 Giant Platelets Not Reportable 05/27/21 03:18 Platelet Satelliting Not Reportable 05/27/21 03:18 Plt Morphology Comment Not Reportable 05/27/21 03:18 RBC Morphology Normal 05/27/21 03:18 Dimorphic RBCs Not Reportable 05/27/21 03:18 Polychromasia Not Reportable 05/27/21 03:18 Hypochromasia Not Reportable 05/27/21 03:18 Poikilocytosis Not Reportable 05/27/21 03:18 Anisocytosis Not Reportable 05/27/21 03:18 Microcytosis Not Reportable 05/27/21 03:18 Macrocytosis Not Reportable 05/27/21 03:18 Spherocytes Not Reportable 05/27/21 03:18 Pappenheimer Bodies Not Reportable 05/27/21 03:18 Sickle Cells Not Reportable 05/27/21 03:18 Target Cells Not Reportable 05/27/21 03:18 Tear Drop Cells Not Reportable 05/27/21 03:18 Ovalocytes Not Reportable 05/27/21 03:18 Helmet Cells Not Reportable 05/27/21 03:18 [place] Bodies Not Reportable 05/27/21 03:18 [place] Rings Not Reportable 05/27/21 03:18 Giorgio Cells Not Reportable 05/27/21 03:18 Bite Cells Not Reportable 05/27/21 03:18 Crenated Cell Not Reportable 05/27/21 03:18 Elliptocytes Not Reportable 05/27/21 03:18 Acanthocytes (Spur) Not Reportable 05/27/21 03:18 Rouleaux Not Reportable 05/27/21 03:18 Hemoglobin C Crystals Not Reportable 05/27/21 03:18 Schistocytes Not Reportable 05/27/21 03:18 Malaria parasites Not Reportable 05/27/21 03:18 Frandy Bodies Not Reportable 05/27/21 03:18 Hem Pathologist Commnt No 05/27/21 03:18 PT 14.2 Sec. (12.2-14.9) 06/07/21 10:50 INR 0.99 (0.87-1.13) 06/07/21 10:50 APTT 36.1 Sec. (24.2-36.6) 06/03/21 Unknown Heparin Anti-Xa Level 0.34 U.I./ml (0.3-0.7) 06/07/21 10:50 ABG pH 7.406 (7.320-7.450) 06/04/21 04:00 POC ABG pCO2 51.5 mmHg (32.0-48.0) H 06/04/21 04:00 ABG pCO2 54.4 mm Hg 06/02/21 05:42 POC ABG pO2 61.7 mmHg (83-108) L 06/04/21 04:00 ABG pO2 141.2 mm Hg (80.0-90.0) H 06/02/21 05:42 POC ABG HCO3 31.6 06/04/21 04:00 ABG HCO3 30.6 mmol/L (20.0-26.0) H 06/02/21 05:42 ABG O2 Saturation 92.7 (0-100) 06/04/21 04:00 ABG O2 Content 16.6 (0.0-44) 06/02/21 05:42 POC ABG Base Excess 5.7 06/04/21 04:00 ABG Base Excess 4.1 mmol/L (-2.0-3.0) H 06/02/21 05:42 ABG Hemoglobin 12.7 (12.0-17.5) 06/04/21 04:00 ABG Oxyhemoglobin 90.9 (94-98) L 06/04/21 04:00 ABG Carboxyhemoglobin 1.5 % (0.0-5.0) 06/02/21 05:42 ABG Methemoglobin 0.3 (0.0-1.5) 06/04/21 04:00 ABG Sodium 137.9 mmol/L (136.0-145.0) 05/24/21 03:44 ABG Potassium 5.6 mmol/L (3.40-4.50) H 05/24/21 03:44 ABG Chloride 105.0 mmol/L (98-107) 05/24/21 03:44 ABG Glucose 53 mg/dL (65-95) L 05/24/21 03:44 Oxyhemoglobin 96.7 % (95.0-99.0) 06/02/21 05:42 Carboxyhemoglobin 1.6 (0.5-1.5) H 06/04/21 04:00 FiO2 50 % 06/02/21 05:42 FiO2 % 35.0 06/04/21 04:00 Sodium 142 mmol/L (137-145) 06/10/21 05:53 Potassium 3.9 mmol/L (3.6-5.0) 06/10/21 05:53 Chloride 106.8 mmol/L (98-107) 06/10/21 05:53 Carbon Dioxide 28 mmol/L (22-30) 06/10/21 05:53 Anion Gap 11 mmol/L 06/10/21 05:53 BUN 13 mg/dL (9-20) 06/10/21 05:53 Creatinine 0.6 mg/dL (0.8-1.3) L 06/10/21 05:53 Creatinine 0.6 mg/dL (0.8-1.3) L 06/10/21 05:53 Estimated GFR > 60 ml/min 06/10/21 05:53 Estimated GFR > 60 ml/min 06/10/21 05:53 BUN/Creatinine Ratio 22 % 06/10/21 05:53 Glucose 128 mg/dL (75-100) H 06/10/21 05:53 POC Glucose 135 mg/dL (70-105) H 06/10/21 12:16 Lactic Acid 2.10 mmol/L (0.7-2.0) H* 05/28/21 10:05 Calcium 8.9 mg/dL (8.4-10.2) 06/10/21 05:53 Phosphorus 3.90 mg/dL (2.5-4.5) D 06/10/21 05:53 Magnesium 1.80 mg/dL (1.7-2.3) 06/10/21 05:53 Total Bilirubin 2.90 mg/dL (0.1-1.2) H 06/02/21 20:00 Direct Bilirubin 2.4 mg/dL (0-0.2) H 06/02/21 07:41 Indirect Bilirubin 0.9 mg/dL 06/02/21 07:41 AST 53 units/L (5-40) H 06/02/21 20:00 ALT 30 units/L (7-56) 06/02/21 20:00 Alkaline Phosphatase 115 units/L (35-129) 06/02/21 20:00 Total Creatine Kinase 556 units/L (55-170) H 05/24/21 09:35 Troponin T < 0.010 ng/mL (0.00-0.029) 05/23/21 09:38 C-Reactive Protein 34.80 mg/dL (0.00-1.30) H 05/28/21 10:05 NT-Pro-B Natriuret Pep 6058 pg/mL (0-450) H 05/23/21 09:38 Total Protein 6.2 g/dL (6.3-8.2) L 06/02/21 20:00 Albumin 1.8 g/dL (3.9-5) L 06/02/21 20:00 Albumin/Globulin Ratio 0.4 % 06/02/21 20:00 Triglycerides 142 mg/dL (2-149) 06/07/21 Unknown Procalcitonin 0.25 ng/mL (<0.15) 06/08/21 04:42 Arterial Blood Glucose 53 mg/dL (65-95) L 05/24/21 03:44 Arterial Blood Ionized Calcium 4.6 mg/dL (4.6-5.3) 05/24/21 03:44 Urine Color Sherri (Yellow) 05/28/21 12:20 Urine Turbidity Clear (Clear) 05/28/21 12:20 Urine pH 6.0 (5.0-7.0) 05/28/21 12:20 Ur Specific [place] 1.017 (1.003-1.030) 05/28/21 12:20 Urine Protein 30 mg/dl mg/dL (Negative) 05/28/21 12:20 Urine Glucose (UA) Neg mg/dL (Negative) 05/28/21 12:20 Urine Ketones Neg mg/dL (Negative) 05/28/21 12:20 Urine Blood Mod (Negative) 05/28/21 12:20 Urine Nitrite Neg (Negative) 05/28/21 12:20 Urine Bilirubin Mod (Negative) 05/28/21 12:20 Urine Ictotest Positive (Negative) 05/28/21 12:20 Urine Urobilinogen 4.0 mg/dL (<2.0) 05/28/21 12:20 Ur Leukocyte Esterase Neg (Negative) 05/28/21 12:20 Urine WBC (Auto) 3.0 /HPF (0.0-6.0) 05/28/21 12:20 Urine RBC (Auto) 4.0 /HPF (0.0-6.0) 05/28/21 12:20 U Epithel Cells (Auto) < 1.0 /HPF (0-13.0) 05/28/21 12:20 Urine Bacteria (Auto) 1+ /HPF (Negative) 05/28/21 12:20 Urine Mucus Few /HPF 05/28/21 12:20 Urine Yeast (Budding) 1+ /HPF 05/24/21 Unknown Salicylates < 0.3 mg/dL (2.8-20.0) L 05/23/21 09:38 Urine Opiates Screen Negative 05/23/21 09:41 Urine Methadone Screen Negative 05/23/21 09:41 Acetaminophen 5.0 ug/mL (10.0-30.0) L 05/23/21 09:38 Ur Barbiturates Screen Negative 05/23/21 09:41 Ur Phencyclidine Scrn Negative 05/23/21 09:41 Ur Amphetamines Screen Positive 05/23/21 09:41 U Benzodiazepines Scrn Negative 05/23/21 09:41 Urine Cocaine Screen Negative 05/23/21 09:41 U Marijuana (THC) Screen Negative 05/23/21 09:41 Drugs of Abuse Note Disclamer 05/23/21 09:41 Coronavirus (PCR) Negative (Negative) 05/26/21 08:14 Hepatitis A IgM Ab Non-reactive (NonReactive) 05/27/21 16:00 Hep Bs Antigen Non-reactive (Negative) 05/27/21 16:00 Hep B Core IgM Ab Non-reactive (NonReactive) 05/27/21 16:00 Hepatitis C Antibody Non-reactive (NonReactive) 05/27/21 16:00 Fajardo/IV: Voiding Method Indwelling Catheter Nutrition/Malnutrition Assess - Dietary Evaluation Nutrition/Malnutrition Findings: Nutrition Notes Start: 05/28/21 12:16 Freq: Status: Discharge Protocol: Document 06/07/21 15:07 YURI (Rec: 06/07/21 15:17 [facility] [id number]) Nutrition Notes Initial or Follow up Reassessment Current Diagnosis Heart Failure,Respiratory Failure Other Pertinent Diagnosis Acute encephalopathy, Overdose , Methamphetamine dependence Current Diet TF - Vital HP at 70ml/hr Labs/Tests Phos 2.3 Pertinent Medications Lasix, 15mmol KPhos x 1 dose, Vit B complex/Folic acid Height 6 ft Weight 102.058 kg [place] Body Weight (kg) 80.90 BMI 30.5 Weight Status Obese Subjective/Other Information Pt remains on vent support. Per RN, pt tolerating TF at goal rate and currently receiving 200ml water flush q4h. PEG and trach placed on 06/04. Percent of energy/protein needs met: 71% energy 91% pro Burn Absent Trauma Absent #1 Nutrition Diagnosis Inadequate oral intake Diagnosis Progress(for reassessment Continues documentation) Is patient on ventilator? Yes Is Patient Ambulatory and/or Out of Bed No REE-(George-St. Jeor-confined to bed) [phone] Calculation Used for Recommendations 65-70% energy needs Additional Notes Energy needs: 5211-6092 kcal/ day Pro needs 2g/kg IBW: 162g/day Fluid needs 1ml/kcal Nutrition Intervention Nutrition Support: Continue Vital HP at 70 ml/hr. Continue 200ml water flush q4h until hypernatremia resolves; then provide 50ml water flush q4h. Kcal 1,680 Protein (gm) 147 Carbohydrates (gm) 188 Fat (gm) 39 Fluid (mL) 1,404 Fiber (gm) 0 Goal #1 TF tolerance Goal #2 TF to meet 65-70% energy and at least 75% pro needs Follow-Up By: 06/11/21 Additional Comments F/U: Vent status, Na lab/water flush
[2021-06-03] MEDS ORDERED: HEPARIN 10,000 UNITS/10 ML VIAL IV ONE (16:02)
[2021-06-03 16:07] LABS: Hematocrit 31.9 % (35.5-45.6); Hemoglobin 10.2 gm/dl (11.8-15.2)
--- NOTE | 2021-06-03 16:12 | Cat Scan Report ---
CT upper extrem RT wo con INDICATION: Possible retained PICC fragment, arm swelling. TECHNIQUE: CT of the right upper arm without contrast. All CT scans at this location are performed using CT dose reduction for ALARA by means of automated exposure control. COMPARISON: None available. FINDINGS: There is no unexpected radiopaque foreign body in the right upper arm. There is generalized subcutane ous trace edema without appreciable focal fluid collection. There is no acute osseous abnormality. IMPRESSION: 1. No radiopaque foreign body in the right upper arm. 2. Generalized subcutaneous soft tissue edema without focal fluid collection. Signer Name: Arash Monteiro MD Signed: 06/03/2021 4:08 PM Workstation Name: [id number]
[2021-06-03 16:34] LABS: INR 1.22 (0.87-1.13); Partial Thromboplastin Time 36.1 Sec. (24.2-36.6)
[2021-06-03] MEDS: HEPARIN/ 0.45% NACL DRIP 25,000 UNIT/500 ML BAG IV SCH (18:39)
[2021-06-03] MEDS: FAMOTIDINE 20 MG TAB FEEDTUBE SCH (21:11)
--- NOTE | 2021-06-03 21:12 | Magnetic Resonance Report ---
MR brain wo con INDICATION / CLINICAL INFORMATION: 40 years Male; ams. TECHNIQUE: Multiplanar, multisequence MR images of the brain were obtained. COMPARISON: None available. FINDINGS: BRAIN / INTRACRANIAL CONTENTS: The motion degrades the image quality despite using a fast acquisition sequences in this patient who appears to be intubated.. However, the brain parenchyma appears to dem onstrate appropriate signal characteristics. The diffusion imaging is unremarkable without evidence o f recent infarction. The ventricular system is within normal limits in size and configuration. No ext ra-axial fluid collections or significant mass effect is identified. CRANIOCERVICAL JUNCTION: No significant abnormality. VASCULAR FLOW-VOIDS: No significant abnormality. ORBITS: No significant abnormality of visualized orbits. SINUSES / MASTOIDS: There is complete heterogeneous opacification of the right maxillary sinus. There is extensive mucosal thickening within the ethmoid, sphenoid and right frontal sinuses. There are no t effusions within the mastoid air cells bilaterally which is also likely related to the intubation. ADDITIONAL FINDINGS: None. IMPRESSION: 1. There is no MRI evidence of acute intracranial process. 2. There is extensive sinus opacity disease and bilateral effusions within the mastoid air cells whic h is likely related to the intubation. Signer Name: Devyn Blanchard MD Signed: 06/03/2021 9:08 PM Workstation Name: [id number]
--- NOTE | 2021-06-04 04:03 | XRay Report ---
CHEST 1 VIEW 06/04/2021 2:35 AM INDICATION / CLINICAL INFORMATION: follow up respiratory failure. COMPARISON: 06/03/2021 FINDINGS: SUPPORT DEVICES: Stable, satisfactory device positioning. HEART / MEDIASTINUM: Cardiomegaly LUNGS / PLEURA: Mild increased vascularity No pneumothorax. ADDITIONAL FINDINGS: No significant additional findings. IMPRESSION: 1. No significant change Signer Name: Toribio Morales MD Signed: 06/04/2021 3:59 AM Workstation Name: [id number]
[2021-06-04 05:22] LABS: Hemoglobin 11.2 gm/dl (11.8-15.2); Mean Corpuscular HGB Conc 31 % (32-34); Mean Corpuscular Volume 89 fl (84-94); Platelet Count 447 K/mm3 (140-440); Red Blood Count 4.06 M/mm3 (3.65-5.03); Red Cell Distribution Width 15.8 % (13.2-15.2)
[2021-06-04 05:30] LABS: INR 1.14 (0.87-1.13)
[2021-06-04 05:45] LABS: BUN/Creatinine Ratio 15; Blood Urea Nitrogen 9 mg/dL (9-20); Calcium 9.1 mg/dL (8.4-10.2); Hemolysis Index 8
[2021-06-04] MEDS: fentaNYL DRIP Premix 2,000 MCG/100 ML BAG IV SCH ×3 (08:36→22:00)
--- NOTE | 2021-06-04 08:49 | Anesthesia Consultation ---
Anesthesia Consult and Med Hx Date of service: 06/04/21 - Pulmonary Exam CTA: Yes - Cardiac Exam Cardiac Exam: RRR - Pre-Operative Health Status ASA Pre-Surgery Classification: ASA4 Proposed Anesthetic Plan: General, MAC - Pulmonary Hx Smoking: Yes Hx Asthma: No Hx Respiratory Symptoms: Yes (resp. failure) COPD: No Hx Pneumonia: No - Cardiovascular System Hx Pacemaker: No Hx Internal Defibrillator: No (Global LV hypokinesis. Dilated LV. systolic HF. EF20-25%) - Central Nervous System Hx Psychiatric Problems: No - Endocrine Hx Renal Disease: Yes (improving BRYNN) Hx End Stage Renal Disease: No - Other Systems Hx Alcohol Use: Yes Hx Substance Use: Yes (Overdose) Hx Cancer: No - Additional Comments Anesthesia Medical History Comments: DVT right Arm. Metabolic encephalopathy. increase agitation when sedation is off
--- NOTE | 2021-06-04 08:54 | Anesthesia Day of Surgery ---
Anesthesia Day of Surgery - Day of Surgery Patient Examined: Yes Patient H&P Reviewed: Yes Patient is NPO: Yes
[2021-06-04] MEDS: SENNOSIDES/DOCUSATE SODIUM 8.6/50 MG TAB FEEDTUBE SCH ×2 (09:35→22:00)
[2021-06-04] MEDS: MIDODRINE 5 MG TAB PO SCH ×3 (09:35→17:12)
[2021-06-04] MEDS: AMPICILLIN/SULBACTA 3GM/100ML 3 GM/100 ML BAG IV SCH ×4 (09:35→23:29)
[2021-06-04] MEDS: FOLBEE PLUS CZ (FOLIC ACID/VIT BCOMP&C/CU/ZNOX) PO SCH (09:35)
[2021-06-04] MEDS: FREE WATER PO SCH ×4 (09:36→22:27)
--- NOTE | 2021-06-04 09:53 | Progress Note ---
Assessment and Plan Impression: * Nonoliguric cute kidney injury secondary to ATN * Acute hypoxic respiratory failure --COVID 19 negative * Acute encephalopathy * Hypernatremia * Hypotension * Drug overdose * Hyperkalemia * Hypernatremia * Upper extremity DVT Plan: * Renal function has improved - BRYNN resolved * Hypernatremia improving - Na 148->150->145->146 - note free water flushes with tube feeds, no need for free water infusion at this time * K repletion prn * Continue close monitoring of renal function * Appreciate vascular- on heparin gtt * Appreciate general surgery- note plans for trach/PEG * vent/respiratory management per pulm * Pressors prn - maintain MAP>65 * Dose medications for renal function * Strict I/O * Avoid potential nephrotoxins * Nephrology will follow peripherally at this time Subjective Date of service: 06/04/21 Principal diagnosis: Overdose Interval history: Chart, vitals, labs reviewed. Reintubated 06/01, FiO2 35% Objective - Exam Narrative Exam: General appearance: well-developed, well-nourished, on vent EENT: ET tube in place Respiratory: Present: Other (coarse BS) Cardiology: regular, S1S2 Gastrointestinal: no distended Integumentary: warm and dry - Vital Signs Vital signs: Vital Signs - 12hr 06/03/21 06/03/21 06/03/21 22:00 22:15 22:30 Temperature Pulse Rate 63 63 63 Pulse Rate [ From Monitor] Respiratory 20 20 20 Rate Blood Pressure 110/57 110/53 108/57 O2 Sat by Pulse 99 97 97 Oximetry 06/03/21 06/03/21 06/03/21 22:45 23:00 23:15 Temperature Pulse Rate 63 63 64 Pulse Rate [ From Monitor] Respiratory 20 20 20 Rate Blood Pressure 102/55 108/55 107/55 O2 Sat by Pulse 98 98 98 Oximetry 06/03/21 06/03/21 06/03/21 23:30 23:45 23:47 Temperature Pulse Rate 64 65 65 Pulse Rate [ From Monitor] Respiratory 20 20 20 Rate Blood Pressure 107/54 108/55 108/55 O2 Sat by Pulse 98 98 98 Oximetry 06/03/21 06/04/21 06/04/21 23:54 00:00 00:15 Temperature 98.8 F Pulse Rate 65 65 64 Pulse Rate [ 62 From Monitor] Respiratory 20 20 Rate Blood Pressure 106/55 106/55 106/54 O2 Sat by Pulse 97 97 96 Oximetry 06/04/21 06/04/21 06/04/21 00:30 00:45 01:00 Temperature Pulse Rate 65 64 64 Pulse Rate [ From Monitor] Respiratory 20 20 20 Rate Blood Pressure 107/54 105/55 105/54 O2 Sat by Pulse 96 97 96 Oximetry 06/04/21 06/04/21 06/04/21 01:15 01:30 01:45 Temperature Pulse Rate 65 65 65 Pulse Rate [ From Monitor] Respiratory 20 20 20 Rate Blood Pressure 106/56 107/55 103/54 O2 Sat by Pulse 96 97 96 Oximetry 06/04/21 06/04/21 06/04/21 02:00 02:15 02:30 Temperature Pulse Rate 66 66 66 Pulse Rate [ From Monitor] Respiratory 20 20 20 Rate Blood Pressure 106/55 106/54 105/54 O2 Sat by Pulse 97 96 97 Oximetry 06/04/21 06/04/21 06/04/21 02:45 03:00 03:15 Temperature Pulse Rate 66 111 H 99 H Pulse Rate [ From Monitor] Respiratory 20 18 17 Rate Blood Pressure 106/54 106/54 117/69 O2 Sat by Pulse 97 98 96 Oximetry 06/04/21 06/04/21 06/04/21 03:30 03:45 03:50 Temperature Pulse Rate 128 H 132 H 66 Pulse Rate [ From Monitor] Respiratory 26 H 22 4 L Rate Blood Pressure 117/69 155/48 106/54 O2 Sat by Pulse 94 96 97 Oximetry 06/04/21 06/04/21 06/04/21 04:00 04:15 04:31 Temperature 100.2 F H Pulse Rate 122 H 120 H 130 H Pulse Rate [ 68 From Monitor] Respiratory 18 19 16 Rate Blood Pressure 142/80 138/78 163/92 O2 Sat by Pulse 96 96 97 Oximetry 06/04/21 06/04/21 06/04/21 04:45 05:01 05:15 Temperature Pulse Rate 121 H 116 H 119 H Pulse Rate [ From Monitor] Respiratory 18 14 14 Rate Blood Pressure 163/92 148/66 148/66 O2 Sat by Pulse 97 97 96 Oximetry 06/04/21 06/04/21 06/04/21 05:31 05:45 06:01 Temperature Pulse Rate 117 H 117 H 91 H Pulse Rate [ From Monitor] Respiratory 16 18 20 Rate Blood Pressure 141/64 141/64 105/54 O2 Sat by Pulse 99 98 95 Oximetry 06/04/21 06/04/21 06/04/21 06:15 06:30 06:45 Temperature Pulse Rate 102 H 85 98 H Pulse Rate [ From Monitor] Respiratory 20 20 17 Rate Blood Pressure 112/64 104/50 111/63 O2 Sat by Pulse 98 96 98 Oximetry 06/04/21 06/04/21 06/04/21 07:00 07:15 07:31 Temperature Pulse Rate 98 H 112 H 118 H Pulse Rate [ From Monitor] Respiratory 19 14 18 Rate Blood Pressure 111/65 111/65 129/79 O2 Sat by Pulse 97 97 98 Oximetry 06/04/21 06/04/21 06/04/21 07:45 08:00 08:15 Temperature 99.8 F H Pulse Rate 125 H 114 H 127 H Pulse Rate [ From Monitor] Respiratory 20 14 19 Rate Blood Pressure 161/70 142/76 142/76 O2 Sat by Pulse 99 98 98 Oximetry 06/04/21 06/04/21 06/04/21 08:20 08:31 08:45 Temperature Pulse Rate 116 H 117 H 128 H Pulse Rate [ From Monitor] Respiratory 17 31 H Rate Blood Pressure 145/61 145/61 148/84 O2 Sat by Pulse 100 98 100 Oximetry 06/04/21 09:00 Temperature Pulse Rate 109 H Pulse Rate [ From Monitor] Respiratory 15 Rate Blood Pressure 133/70 O2 Sat by Pulse 100 Oximetry - Lab 06/04/21 04:10 06/04/21 04:10 Most recent lab results ABG pH 7.406 (7.320-7.450) 06/04/21 04:00 ABG pCO2 54.4 mm Hg 06/02/21 05:42 ABG pO2 141.2 mm Hg (80.0-90.0) H 06/02/21 05:42 ABG HCO3 30.6 mmol/L (20.0-26.0) H 06/02/21 05:42 ABG O2 Saturation 92.7 (0-100) 06/04/21 04:00 Calcium 9.1 mg/dL (8.4-10.2) 06/04/21 04:10 Phosphorus 3.00 mg/dL (2.5-4.5) 06/02/21 07:41 Magnesium 1.70 mg/dL (1.7-2.3) 06/02/21 07:41 Medications & Allergies - Medications Allergies/Adverse Reactions: Allergies No Known Allergies Allergy (Verified 05/26/21 10:09) Home Medications: Home Medications Medication Instructions Recorded Confirmed Last Taken Type Unobtainable 09/13/13 09/13/13 Unknown History Active Medications: Generic Name Dose Route Start Last Admin Trade Name Freq PRN Reason Stop Dose Admin Acetaminophen 650 mg 05/23/21 11:43 05/31/21 03:22 Acetaminophen 650 Mg Rect Supp OK 650 mg Q6H PRN Administration Pain MILD(1-3)/Fever >100.5/EPSTEIN Lipase/Protease/Amylase 1 each 05/29/21 08:45 Lipase 10,500/Protease 25,000/Amylase 43,750 (Units) Dr Cap FEEDTUBE PRN PRN For Clogged Feeding Tube Dextrose 0 ml 05/31/21 10:47 Dextrose 10% *Hypoglycemia IV PRN PRN Hypoglycemia Famotidine 40 mg 06/02/21 22:00 06/03/21 21:11 Famotidine 20 Mg Tab FEEDTUBE 40 mg QHS MARK Administration Fentanyl 50 mcg 06/01/21 12:29 Fentanyl 100 Mcg/2 Ml Inj IV Q10MIN PRN ANALGESIA Haloperidol Lactate 5 mg 05/30/21 12:18 06/01/21 09:27 Haloperidol Lactate 5 Mg/1 Ml Inj IV 5 mg Q6H PRN Administration Agitation Heparin Sodium (Porcine) 4,100 unit 06/03/21 15:02 Heparin 10,000 Units/10 Ml Vial 40 unit/kg (4100 unit) IV Q6H PRN Anti-Xa Assay < 0.1 units/ml Hydrophilic Ointment 1 applic 06/01/21 12:30 Lip Therapy Vaseline TP Q2HR PRN Dry Lips Dexmedetomidine HCl 400 mcg/ 104 mls @ 5.307 mls/hr 05/24/21 05:00 06/04/21 09:34 Sodium Chloride IV 1.4 mcg/kg/hr TITRATE MARK 37.149 mls/hr Administration Protocol 0.2 MCG/KG/HR Fentanyl Citrate 2,000 mcg in 100 mls @ 5.103 mls/hr 06/01/21 13:00 06/04/21 08:36 Fentanyl Drip Premix IV 4 mcg/kg/hr TITR MARK 20.412 mls/hr Administration Protocol 1 MCG/KG/HR Propofol 1,000 mg in 100 mls @ 3.062 mls/hr 06/01/21 12:10 06/04/21 09:34 Diprivan 10 Mg/Ml IV 45 mcg/kg/min TITR MARK 27.556 mls/hr Administration Protocol 5 MCG/KG/MIN Ampicillin Sodium/Sulbactam Sodium 3 gm in 100 mls @ 200 mls/hr 06/03/21 11:00 06/04/21 09:35 Unasyn/Ns 3 Gm/100 Ml IV 200 mls/hr Q6H [facility] Administration Protocol Midazolam HCl 100 mg/ Sodium 100 mls @ 1 mls/hr 06/03/21 11:00 06/04/21 03:05 Chloride IV 1 mg/hr TITR MARK 1 mls/hr Titration Protocol 1 MG/HR Heparin Sodium/Sodium Chloride 25,000 unit in 500 mls @ 30 mls/hr 06/03/21 16:00 06/04/21 06:14 Heparin/ 0.45% Nacl-25,000 Unit/500 Ml IV 0 units/hr TITR MARK 0 mls/hr Titration Protocol 1,500 UNITS/HR Lorazepam 2 mg 05/31/21 11:00 06/03/21 09:20 Lorazepam 2 Mg/Ml Vial IV 2 mg Q4H PRN Administration Agitation Midazolam HCl 2 mg 06/03/21 10:06 Midazolam 2 Mg/2 Ml Inj IV Q10MIN PRN Sedation Midodrine 5 mg 06/02/21 12:00 06/04/21 09:35 Midodrine 5 Mg Tab PO 5 mg TID@0800,1200,1600 [facility] Administration Multi-Ingred Cream/Lotion/Oil/Oint 1 applic 06/01/21 12:30 Mineral Oil/Petrolatum, White Ophth Oint 3.5 Gm OU Q4HR PRN Dry Eye(s) Ondansetron HCl 4 mg 05/23/21 11:43 Ondansetron 4 Mg/2 Ml Inj IV Q8H PRN Nausea And Vomiting Senna/Docusate Sodium 1 tab 06/01/21 22:00 06/04/21 09:35 Sennosides/Docusate Sodium 8.6/50 Mg Tab FEEDTUBE 1 tab BID MARK Administration Simple Syrup 15 ml 05/29/21 08:45 Simple Syrup 15 Ml FEEDTUBE PRN PRN Hypoglycemia Simple Syrup 30 ml 05/29/21 08:45 Simple Syrup 15 Ml FEEDTUBE PRN PRN Hypoglycemia Sodium Bicarbonate 325 mg 05/29/21 08:45 Sodium Bicarbonate 325 Mg Tab FEEDTUBE PRN PRN For Clogged Feeding Tube Sodium Chloride 10 ml 05/23/21 22:00 06/04/21 09:35 Sodium Chloride 0.9% 10 Ml Flush Syringe IV 10 ml BID MARK Administration Sodium Chloride 10 ml 05/23/21 11:43 Sodium Chloride 0.9% 10 Ml Flush Syringe IV PRN PRN LINE FLUSH Sodium Chloride 10 ml 05/31/21 09:50 06/01/21 12:32 Sodium Chloride 0.9% 50 Ml Ivpb IV 10 ml PRN PRN Administration FLUSH Vitamin B Complex/Folic Acid 1 each 05/30/21 10:00 06/04/21 09:35 Folbee Plus Cz (Folic Acid/Vit Bcomp&C/Cu/Znox) PO 1 each QDAY MARK Administration
--- NOTE | 2021-06-04 11:19 | Progress Note ---
Assessment and Plan Patient is a 40-year-old male with a past medical history of HFrEF (EF 15%) and methamphetamine dependence who was brought to the ED after being found unresponsive on 05/13/2021. Acute hypoxic respiratory failure-pulmonology following Drug overdose Acute on chronic HFrEF Sepsis Bilateral pneumonia DVT BRYNN-Nephrology following Rhabdomyolysis Hypernatremia Echo 05/25/2021-EF 20 to 25%. Severe global hypokinesis of left ventricle. Left ventricle is moderately dilated. Doppler flow suggests impaired LV relaxation. Moderate mitral regurgitation. No pericardial effusion Cardiac cath 08/04/2020-Angiographically normal coronary arteries. This is indicative of a nonischemic cardiomyopathy. Mildly elevated biventricular filling pressures with normal cardiac index TTE, complete 08/02/20:LVEF is 18%,Severe global LV hypokinesis. Normal LV diastolic function. LA mildly dilated. Moderate mitral regurgitation with an eccentric MR jet(s),No previous echocardiogram for comparison. Outpatient medications: Coreg 6.25 mg p.o. twice daily, Lasix 40 mg p.o. daily, lisinopril 5 mg p.o. daily Plan: Continue to hold RAMYA and ARB as per nephro recs and low BP Recommend holding beta-woo due to patient soft BP Continue midodrine 5 mg p.o. 3 times daily due to low BPs Per discussion with staff Patient for trach and PEG placement Patient seen in conjunction with Dr. Salazar who agrees with this plan of care - Patient Problems (1) Acute on chronic HFrEF (heart failure with reduced ejection fraction) Current Visit: Yes Status: Acute (2) PNA (pneumonia) Current Visit: Yes Status: Acute (3) Acute encephalopathy Current Visit: Yes Status: Acute (4) Acute respiratory failure Current Visit: Yes Status: Acute Qualifiers: Respiratory failure complication: hypoxia Qualified Code(s): J96.01 - Acute respiratory failure with hypoxia (5) Overdose by ingestion Current Visit: Yes Status: Acute Subjective Date of service: 06/04/21 Principal diagnosis: Overdose Interval history: Patient remains intubated and sedated. Sinus 90s on monitor Objective Vital Signs Temp Pulse Pulse Resp BP Pulse Ox 06/04/21 10:30 84 20 112/53 98 06/04/21 10:15 108 H 17 101/56 99 06/04/21 10:00 88 20 101/56 98 06/04/21 09:45 119 H 19 121/67 99 06/04/21 09:30 104 H 15 121/67 99 06/04/21 09:15 92 H 20 133/70 97 06/04/21 09:00 109 H 15 133/70 100 06/04/21 08:45 128 H 31 H 148/84 100 06/04/21 08:31 117 H 17 145/61 98 06/04/21 08:20 116 H 145/61 100 06/04/21 08:15 127 H 19 142/76 98 06/04/21 08:00 99.8 F H 114 H 14 142/76 98 06/04/21 07:45 125 H 20 161/70 99 06/04/21 07:31 118 H 18 129/79 98 06/04/21 07:15 112 H 14 111/65 97 06/04/21 07:00 98 H 19 111/65 97 06/04/21 06:45 98 H 17 111/63 98 06/04/21 06:30 85 20 104/50 96 06/04/21 06:15 102 H 20 112/64 98 06/04/21 06:01 91 H 20 105/54 95 06/04/21 05:45 117 H 18 141/64 98 06/04/21 05:31 117 H 16 141/64 99 06/04/21 05:15 119 H 14 148/66 96 06/04/21 05:01 116 H 14 148/66 97 06/04/21 04:45 121 H 18 163/92 97 06/04/21 04:31 130 H 16 163/92 97 06/04/21 04:15 120 H 19 138/78 96 06/04/21 04:00 100.2 F H 122 H 68 18 142/80 96 06/04/21 03:50 66 4 L 106/54 97 06/04/21 03:45 132 H 22 155/48 96 06/04/21 03:30 128 H 26 H 117/69 94 06/04/21 03:15 99 H 17 117/69 96 06/04/21 03:00 111 H 18 106/54 98 06/04/21 02:45 66 20 106/54 97 06/04/21 02:30 66 20 105/54 97 06/04/21 02:15 66 20 106/54 96 06/04/21 02:00 66 20 106/55 97 06/04/21 01:45 65 20 103/54 96 06/04/21 01:30 65 20 107/55 97 06/04/21 01:15 65 20 106/56 96 06/04/21 01:00 64 20 105/54 96 06/04/21 00:45 64 20 105/55 97 06/04/21 00:30 65 20 107/54 96 06/04/21 00:15 64 20 106/54 96 06/04/21 00:00 98.8 F 65 62 20 106/55 97 06/03/21 23:54 65 106/55 97 06/03/21 23:47 65 20 108/55 98 06/03/21 23:45 65 20 108/55 98 06/03/21 23:30 64 20 107/54 98 06/03/21 23:15 64 20 107/55 98 06/03/21 23:00 63 20 108/55 98 06/03/21 22:45 63 20 102/55 98 06/03/21 22:30 63 20 108/57 97 06/03/21 22:15 63 20 110/53 97 06/03/21 22:00 63 20 110/57 99 06/03/21 21:45 62 20 109/56 98 06/03/21 21:30 63 20 110/58 98 06/03/21 21:15 62 20 110/58 98 06/03/21 21:00 62 20 112/59 98 06/03/21 20:45 62 20 113/60 99 06/03/21 20:30 62 20 115/62 98 06/03/21 20:15 62 20 115/61 98 06/03/21 20:00 98.6 F 62 62 20 114/58 97 06/03/21 19:55 66 0 L 125/63 97 06/03/21 19:45 60 20 113/58 97 06/03/21 19:30 61 20 112/57 97 06/03/21 19:00 60 22 125/63 97 06/03/21 18:30 69 20 104/60 94 06/03/21 18:00 88 21 111/65 94 06/03/21 17:33 132/66 95 06/03/21 16:00 98.3 F 96 H 67 133/59 98 06/03/21 15:52 98.5 F 06/03/21 15:30 65 20 109/53 98 06/03/21 15:00 66 20 109/53 98 06/03/21 14:30 67 20 103/49 97 06/03/21 14:00 67 20 107/52 96 06/03/21 13:30 71 20 104/55 94 06/03/21 13:27 77 103/48 06/03/21 12:00 68 69 20 101/49 97 06/03/21 11:40 99.2 F 06/03/21 11:30 70 20 106/50 99 - Physical Examination General: Other (intubated/sedated) HEENT: Positive: Normocephaly Neck: Positive: neck supple, trachea midline. Negative: JVD/HJR Cardiac: Positive: Reg Rate and Rhythm Lungs: Positive: Ventilated Respirations Neuro: Positive: Other (agitated) Abdomen: Positive: Soft Skin: Negative: Rash Extremities: Present: warm. Absent: edema - Labs and Meds Coagulation 06/03/21 06/04/21 Range/Units Unknown 04:10 PT 16.7 H 15.8 H (12.2-14.9) Sec. INR 1.22 H 1.14 H (0.87-1.13) APTT 36.1 (24.2-36.6) Sec. Lipids 06/04/21 Range/Units 04:10 Triglycerides 161 H (2-149) mg/dL CBC 06/03/21 06/04/21 Range/Units Unknown 04:10 WBC 11.7 H (4.5-11.0) K/mm3 RBC 4.06 (3.65-5.03) M/mm3 Hgb 10.2 L 11.2 L (11.8-15.2) gm/dl Hct 31.9 L D 36.0 (35.5-45.6) % Plt Count 375 447 H (140-440) K/mm3 Comprehensive Metabolic Panel 06/04/21 Range/Units 04:10 Sodium 146 H (137-145) mmol/L Potassium 3.7 (3.6-5.0) mmol/L Chloride 109.4 H (98-107) mmol/L Carbon Dioxide 29 (22-30) mmol/L BUN 9 (9-20) mg/dL Creatinine 0.6 L (0.8-1.3) mg/dL Glucose 122 H (75-100) mg/dL Calcium 9.1 (8.4-10.2) mg/dL - Imaging and Cardiology EKG: report reviewed, image reviewed Echo: report reviewed Cardiac cath: report reviewed - Telemetry EKG Rhythm: Sinus Rhythm - EKG Sinus rhythms and dysrhythmias: sinus rhythm, sinus tachycardia Ventricular dysrhythmias: ventricular premature com Repolarization changes or abnormalities: nonspecific abnormality, ST segment, and/or T wave - Allied health notes Allied health notes reviewed: nursing
--- NOTE | 2021-06-04 12:12 | Progress Note ---
Assessment and Plan 40 y/o male with suspected overdose and metabolic acidosis 06/04/21: Trach and peg today. Wean sedation as tolerated once trached. once off all sedation can try PSV trials if patient will remain calm enough. Anticoagulation for DVT. MRI and head CT were negative. COntinue abx therapy. Guarded prognosis. 06/03/21: Surgery has seen and will schedule for trach and peg soon. IR consulted given acute DVT in upper ext and possible retained products. Will obtain CT of chest. Given mental status and no real answer with negative head CT, will obtain MRI. Will start empiric unasyn given secretions, odor and white count. Only on minimal vent settings. Await sputum culture. LFT's better. WIll place central line in groin. GUarded prognosis. 06/02/21: recheck LFT's. Consult surgery for trach and peg. Feed patient. Reviewed abdominal US from 05/27, unremarkable but if LFT's worse, may need to repeat or even consider CT of abdomen pelvis. 06/01/21: Reintubated today. Sedated. Spoke with mother over the phone. Given this is the third intubation in less than 10 days, will consult surgery for trach and peg. 05/31/21: Extubated and had some upper airway noise. RT gave racemic epi. Increased work of breathing but no desats so will try bipap therapy. If fails will be reintubated and trached. Keep NPO for now. Will need to change BB to IV while on bipap therapy. 05/28/21: Extubate again today once patient is more awake. Continue precedex to help with agitation. Will need swallow eval once extubated. Cards is seeing, await any new recs. spoke with them this morning and his cardiomyopathy and systolic heart failure are chronic with normal coronaries on a cath last year sometime in the [email or web address]. 05/27/21: Get patient to ICU as soon as possible to achieve adequate sedation and mental state control to insure successful extubation. AGree with Precedex 05/26/21: Attempt extubation today once all sedation is off. 05/25/21: follow up echo. Spoke with RT about ABG. States will be in system within the hour. Still pressors but on Precedex, Versed and Fent. needs to be COVID tested. BNP was >6k. Unable to diurese right now given pressor requirements but need to follow up echo. need to get patient upstairs as soon as possible. Spoke with charge nurse and they are working on this. 1. CXR shows cardiomegaly with some bibasilar changes. Could be fluid. Suggest swabbing for COVID. Check BNP and obtain 2D echo given heart size. 2. Minimal sedation to assess mental status 3. Wean pressors for MAPS >60 4. Follow up renal recs 5. No ABG prior to intubation. Echo should be a bubble study given degree of hypoxemia seen on ABG CCT 31 minutes. Subjective Date of service: 06/04/21 Principal diagnosis: Overdose Interval history: This am while off Diprovan, patient was awake and alert and appropriate. Followed commands. Denied drug use but I told him his UDS was positive for amphetamines. He was doing this will on Fentanyl and Precedex. Going for trach and peg today. Objective Vital Signs - 12hr 06/04/21 06/04/21 06/04/21 00:15 00:30 00:45 Temperature Pulse Rate 64 65 64 Pulse Rate [ From Monitor] Respiratory 20 20 20 Rate Blood Pressure 106/54 107/54 105/55 O2 Sat by Pulse 96 96 97 Oximetry 06/04/21 06/04/21 06/04/21 01:00 01:15 01:30 Temperature Pulse Rate 64 65 65 Pulse Rate [ From Monitor] Respiratory 20 20 20 Rate Blood Pressure 105/54 106/56 107/55 O2 Sat by Pulse 96 96 97 Oximetry 06/04/21 06/04/21 06/04/21 01:45 02:00 02:15 Temperature Pulse Rate 65 66 66 Pulse Rate [ From Monitor] Respiratory 20 20 20 Rate Blood Pressure 103/54 106/55 106/54 O2 Sat by Pulse 96 97 96 Oximetry 06/04/21 06/04/21 06/04/21 02:30 02:45 03:00 Temperature Pulse Rate 66 66 111 H Pulse Rate [ From Monitor] Respiratory 20 20 18 Rate Blood Pressure 105/54 106/54 106/54 O2 Sat by Pulse 97 97 98 Oximetry 06/04/21 06/04/21 06/04/21 03:15 03:30 03:45 Temperature Pulse Rate 99 H 128 H 132 H Pulse Rate [ From Monitor] Respiratory 17 26 H 22 Rate Blood Pressure 117/69 117/69 155/48 O2 Sat by Pulse 96 94 96 Oximetry 06/04/21 06/04/21 06/04/21 03:50 04:00 04:15 Temperature 100.2 F H Pulse Rate 66 122 H 120 H Pulse Rate [ 68 From Monitor] Respiratory 4 L 18 19 Rate Blood Pressure 106/54 142/80 138/78 O2 Sat by Pulse 97 96 96 Oximetry 06/04/21 06/04/21 06/04/21 04:31 04:45 05:01 Temperature Pulse Rate 130 H 121 H 116 H Pulse Rate [ From Monitor] Respiratory 16 18 14 Rate Blood Pressure 163/92 163/92 148/66 O2 Sat by Pulse 97 97 97 Oximetry 06/04/21 06/04/21 06/04/21 05:15 05:31 05:45 Temperature Pulse Rate 119 H 117 H 117 H Pulse Rate [ From Monitor] Respiratory 14 16 18 Rate Blood Pressure 148/66 141/64 141/64 O2 Sat by Pulse 96 99 98 Oximetry 06/04/21 06/04/21 06/04/21 06:01 06:15 06:30 Temperature Pulse Rate 91 H 102 H 85 Pulse Rate [ From Monitor] Respiratory 20 20 20 Rate Blood Pressure 105/54 112/64 104/50 O2 Sat by Pulse 95 98 96 Oximetry 06/04/21 06/04/21 06/04/21 06:45 07:00 07:15 Temperature Pulse Rate 98 H 98 H 112 H Pulse Rate [ From Monitor] Respiratory 17 19 14 Rate Blood Pressure 111/63 111/65 111/65 O2 Sat by Pulse 98 97 97 Oximetry 06/04/21 06/04/21 06/04/21 07:31 07:45 08:00 Temperature 99.8 F H Pulse Rate 118 H 125 H 114 H Pulse Rate [ From Monitor] Respiratory 18 20 14 Rate Blood Pressure 129/79 161/70 142/76 O2 Sat by Pulse 98 99 98 Oximetry 06/04/21 06/04/21 06/04/21 08:15 08:20 08:31 Temperature Pulse Rate 127 H 116 H 117 H Pulse Rate [ From Monitor] Respiratory 19 17 Rate Blood Pressure 142/76 145/61 145/61 O2 Sat by Pulse 98 100 98 Oximetry 06/04/21 06/04/21 06/04/21 08:45 09:00 09:15 Temperature Pulse Rate 128 H 109 H 92 H Pulse Rate [ From Monitor] Respiratory 31 H 15 20 Rate Blood Pressure 148/84 133/70 133/70 O2 Sat by Pulse 100 100 97 Oximetry 06/04/21 06/04/21 06/04/21 09:30 09:45 10:00 Temperature Pulse Rate 104 H 119 H 88 Pulse Rate [ From Monitor] Respiratory 15 19 20 Rate Blood Pressure 121/67 121/67 101/56 O2 Sat by Pulse 99 99 98 Oximetry 06/04/21 06/04/21 10:15 10:30 Temperature Pulse Rate 108 H 84 Pulse Rate [ From Monitor] Respiratory 17 20 Rate Blood Pressure 101/56 112/53 O2 Sat by Pulse 99 98 Oximetry Constitutional: other (Arousable to verbal stimulation) ENT: oropharynx moist, other (Orally intubated) Ascultation: Bilateral: rhonchi Cardiovascular: regular rate and rhythm (With episodes of tachycardia) Gastrointestinal: normoactive bowel sounds, soft, non-tender CBC and BMP: 06/04/21 04:10 06/04/21 04:10 ABG, PT/INR, D-dimer: ABG ABG pH 7.406 (7.320-7.450) 06/04/21 04:00 POC ABG pCO2 51.5 mmHg (32.0-48.0) H 06/04/21 04:00 ABG pCO2 54.4 mm Hg 06/02/21 05:42 POC ABG pO2 61.7 mmHg (83-108) L 06/04/21 04:00 ABG pO2 141.2 mm Hg (80.0-90.0) H 06/02/21 05:42 POC ABG HCO3 31.6 06/04/21 04:00 ABG O2 Saturation 92.7 (0-100) 06/04/21 04:00 PT/INR, D-dimer PT 15.8 Sec. (12.2-14.9) H 06/04/21 04:10 INR 1.14 (0.87-1.13) H 06/04/21 04:10 Abnormal lab findings: Abnormal Labs 05/23/21 05/23/21 05/23/21 05:55 09:38 09:38 WBC RBC 5.09 H Hgb Hct 46.2 H MCH MCHC RDW Plt Count Lymph % (Auto) Love % (Auto) Love # (Auto) Seg Neutrophils % Seg Neuts % (Manual) Lymphocytes % (Manual) Seg Neutrophils # Seg Neutrophils # Man Lymphocytes # (Manual) PT INR ABG pH 7.265 L POC ABG pCO2 POC ABG pO2 ABG pO2 ABG HCO3 ABG O2 Saturation 94.6 L ABG Base Excess -4.5 L ABG Hemoglobin ABG Oxyhemoglobin ABG Potassium ABG Glucose Oxyhemoglobin 92.3 L Carboxyhemoglobin Sodium Potassium Chloride Carbon Dioxide 20 L BUN Creatinine Glucose 147 H POC Glucose Lactic Acid Calcium Phosphorus Magnesium Total Bilirubin Direct Bilirubin AST Total Creatine Kinase C-Reactive Protein NT-Pro-B Natriuret Pep Total Protein Albumin 3.6 L Triglycerides Arterial Blood Glucose Urine WBC (Auto) Salicylates Acetaminophen 05/23/21 05/23/21 05/23/21 09:38 09:38 09:38 WBC RBC Hgb Hct MCH MCHC RDW Plt Count Lymph % (Auto) Love % (Auto) Love # (Auto) Seg Neutrophils % Seg Neuts % (Manual) Lymphocytes % (Manual) Seg Neutrophils # Seg Neutrophils # Man Lymphocytes # (Manual) PT INR ABG pH POC ABG pCO2 POC ABG pO2 ABG pO2 ABG HCO3 ABG O2 Saturation ABG Base Excess ABG Hemoglobin ABG Oxyhemoglobin ABG Potassium ABG Glucose Oxyhemoglobin Carboxyhemoglobin Sodium Potassium Chloride Carbon Dioxide BUN Creatinine Glucose POC Glucose Lactic Acid Calcium Phosphorus Magnesium Total Bilirubin Direct Bilirubin AST Total Creatine Kinase C-Reactive Protein NT-Pro-B Natriuret Pep 6058 H Total Protein Albumin Triglycerides Arterial Blood Glucose Urine WBC (Auto) Salicylates < 0.3 L Acetaminophen 5.0 L 05/23/21 05/23/21 05/24/21 12:49 Unknown 03:44 WBC RBC Hgb Hct MCH MCHC RDW Plt Count Lymph % (Auto) Love % (Auto) Love # (Auto) Seg Neutrophils % Seg Neuts % (Manual) Lymphocytes % (Manual) Seg Neutrophils # Seg Neutrophils # Man Lymphocytes # (Manual) PT INR ABG pH 7.208 L 7.241 L POC ABG pCO2 POC ABG pO2 ABG pO2 52.2 L ABG HCO3 ABG O2 Saturation 93.5 L 83.7 L ABG Base Excess -6.7 L -3.7 L ABG Hemoglobin ABG Oxyhemoglobin ABG Potassium 5.6 H ABG Glucose 53 L Oxyhemoglobin 91.1 L 81.1 L Carboxyhemoglobin Sodium Potassium Chloride Carbon Dioxide BUN Creatinine Glucose POC Glucose Lactic Acid Calcium Phosphorus Magnesium Total Bilirubin Direct Bilirubin AST Total Creatine Kinase C-Reactive Protein NT-Pro-B Natriuret Pep Total Protein Albumin Triglycerides Arterial Blood Glucose 53 L Urine WBC (Auto) Salicylates Acetaminophen 05/24/21 05/24/21 05/24/21 05:14 05:14 09:35 WBC 23.3 H RBC 5.23 H Hgb Hct 47.3 H MCH MCHC RDW 15.3 H Plt Count Lymph % (Auto) Love % (Auto) Love # (Auto) Seg Neutrophils % Seg Neuts % (Manual) 12.0 L Lymphocytes % (Manual) 3.0 L Seg Neutrophils # Seg Neutrophils # Man Lymphocytes # (Manual) 0.7 L PT INR ABG pH POC ABG pCO2 POC ABG pO2 ABG pO2 ABG HCO3 ABG O2 Saturation ABG Base Excess ABG Hemoglobin ABG Oxyhemoglobin ABG Potassium ABG Glucose Oxyhemoglobin Carboxyhemoglobin Sodium Potassium 6.3 H* D Chloride 107.3 H Carbon Dioxide 20 L BUN 33 H Creatinine 3.5 H D Glucose 56 L POC Glucose Lactic Acid Calcium Phosphorus Magnesium Total Bilirubin 1.90 H Direct Bilirubin AST Total Creatine Kinase 556 H C-Reactive Protein NT-Pro-B Natriuret Pep Total Protein 4.9 L D Albumin 2.8 L Triglycerides Arterial Blood Glucose Urine WBC (Auto) Salicylates Acetaminophen 05/24/21 05/24/21 05/25/21 19:45 Unknown 04:23 WBC 20.1 H RBC Hgb Hct MCH MCHC 31 L RDW 15.5 H Plt Count Lymph % (Auto) Love % (Auto) Love # (Auto) Seg Neutrophils % Seg Neuts % (Manual) 94.0 H Lymphocytes % (Manual) 5.0 L Seg Neutrophils # Seg Neutrophils # Man 18.9 H Lymphocytes # (Manual) 1.0 L PT INR ABG pH POC ABG pCO2 POC ABG pO2 ABG pO2 ABG HCO3 ABG O2 Saturation ABG Base Excess ABG Hemoglobin ABG Oxyhemoglobin ABG Potassium ABG Glucose Oxyhemoglobin Carboxyhemoglobin Sodium Potassium 5.7 H Chloride 108.9 H Carbon Dioxide 21 L BUN 36 H Creatinine 2.6 H Glucose 108 H POC Glucose Lactic Acid Calcium Phosphorus Magnesium Total Bilirubin Direct Bilirubin AST Total Creatine Kinase C-Reactive Protein NT-Pro-B Natriuret Pep Total Protein Albumin Triglycerides Arterial Blood Glucose Urine WBC (Auto) 78.0 H Salicylates Acetaminophen 05/25/21 05/25/21 05/25/21 04:23 09:14 11:46 WBC RBC Hgb Hct MCH MCHC RDW Plt Count Lymph % (Auto) Love % (Auto) Love # (Auto) Seg Neutrophils % Seg Neuts % (Manual) Lymphocytes % (Manual) Seg Neutrophils # Seg Neutrophils # Man Lymphocytes # (Manual) PT INR ABG pH POC ABG pCO2 POC ABG pO2 ABG pO2 ABG HCO3 ABG O2 Saturation ABG Base Excess ABG Hemoglobin ABG Oxyhemoglobin ABG Potassium ABG Glucose Oxyhemoglobin Carboxyhemoglobin Sodium Potassium Chloride 111.4 H Carbon Dioxide 18 L BUN 33 H Creatinine 1.9 H Glucose 121 H POC Glucose Lactic Acid 2.40 H* 2.60 H* Calcium Phosphorus Magnesium Total Bilirubin Direct Bilirubin AST Total Creatine Kinase C-Reactive Protein NT-Pro-B Natriuret Pep Total Protein Albumin Triglycerides Arterial Blood Glucose Urine WBC (Auto) Salicylates Acetaminophen 05/25/21 05/26/21 05/26/21 18:00 03:16 05:55 WBC 22.0 H RBC Hgb Hct MCH MCHC RDW 15.3 H Plt Count Lymph % (Auto) Love % (Auto) Love # (Auto) Seg Neutrophils % Seg Neuts % (Manual) 96.0 H Lymphocytes % (Manual) 2.0 L Seg Neutrophils # Seg Neutrophils # Man 21.1 H Lymphocytes # (Manual) 0.4 L PT INR ABG pH POC ABG pCO2 POC ABG pO2 ABG pO2 208.2 H ABG HCO3 ABG O2 Saturation 99.3 H ABG Base Excess -2.7 L -2.6 L ABG Hemoglobin 13.7 L 13.0 L ABG Oxyhemoglobin ABG Potassium ABG Glucose Oxyhemoglobin 94.8 L Carboxyhemoglobin Sodium Potassium Chloride Carbon Dioxide BUN Creatinine Glucose POC Glucose Lactic Acid Calcium Phosphorus Magnesium Total Bilirubin Direct Bilirubin AST Total Creatine Kinase C-Reactive Protein NT-Pro-B Natriuret Pep Total Protein Albumin Triglycerides Arterial Blood Glucose Urine WBC (Auto) Salicylates Acetaminophen 05/26/21 05/27/21 05/27/21 05:55 03:18 03:18 WBC 21.5 H RBC Hgb Hct MCH MCHC RDW 15.5 H Plt Count Lymph % (Auto) Love % (Auto) Love # (Auto) Seg Neutrophils % Seg Neuts % (Manual) 92.0 H Lymphocytes % (Manual) 5.0 L Seg Neutrophils # Seg Neutrophils # Man 19.8 H Lymphocytes # (Manual) 1.1 L PT INR ABG pH POC ABG pCO2 POC ABG pO2 ABG pO2 ABG HCO3 ABG O2 Saturation ABG Base Excess ABG Hemoglobin ABG Oxyhemoglobin ABG Potassium ABG Glucose Oxyhemoglobin Carboxyhemoglobin Sodium 148 H Potassium Chloride 111.3 H 113.8 H Carbon Dioxide 21 L 20 L BUN 23 H Creatinine Glucose 102 H 103 H POC Glucose Lactic Acid Calcium 8.3 L Phosphorus Magnesium Total Bilirubin 7.80 H Direct Bilirubin AST 112 H Total Creatine Kinase C-Reactive Protein NT-Pro-B Natriuret Pep Total Protein 5.2 L Albumin 2.9 L Triglycerides Arterial Blood Glucose Urine WBC (Auto) Salicylates Acetaminophen 05/27/21 05/28/21 05/28/21 03:18 05:55 10:05 WBC 11.4 H RBC Hgb Hct MCH MCHC RDW 15.5 H Plt Count Lymph % (Auto) 11.2 L Love % (Auto) 8.6 H Love # (Auto) 1.0 H Seg Neutrophils % 78.9 H Seg Neuts % (Manual) Lymphocytes % (Manual) Seg Neutrophils # 9.0 H Seg Neutrophils # Man Lymphocytes # (Manual) PT INR ABG pH POC ABG pCO2 POC ABG pO2 ABG pO2 104.7 H ABG HCO3 ABG O2 Saturation ABG Base Excess -3.1 L ABG Hemoglobin 13.2 L ABG Oxyhemoglobin ABG Potassium ABG Glucose Oxyhemoglobin Carboxyhemoglobin Sodium Potassium Chloride Carbon Dioxide BUN Creatinine Glucose POC Glucose Lactic Acid Calcium Phosphorus Magnesium Total Bilirubin 7.90 H Direct Bilirubin 6.0 H AST 114 H Total Creatine Kinase C-Reactive Protein NT-Pro-B Natriuret Pep Total Protein 5.2 L Albumin 2.8 L Triglycerides Arterial Blood Glucose Urine WBC (Auto) Salicylates Acetaminophen 05/28/21 05/28/21 05/28/21 10:05 10:05 10:05 WBC RBC Hgb Hct MCH MCHC RDW Plt Count Lymph % (Auto) Love % (Auto) Love # (Auto) Seg Neutrophils % Seg Neuts % (Manual) Lymphocytes % (Manual) Seg Neutrophils # Seg Neutrophils # Man Lymphocytes # (Manual) PT INR ABG pH POC ABG pCO2 POC ABG pO2 ABG pO2 ABG HCO3 ABG O2 Saturation ABG Base Excess ABG Hemoglobin ABG Oxyhemoglobin ABG Potassium ABG Glucose Oxyhemoglobin Carboxyhemoglobin Sodium 149 H Potassium Chloride 119.9 H Carbon Dioxide 18 L BUN Creatinine Glucose 103 H POC Glucose Lactic Acid 2.10 H* Calcium Phosphorus Magnesium Total Bilirubin Direct Bilirubin AST Total Creatine Kinase C-Reactive Protein 34.80 H NT-Pro-B Natriuret Pep Total Protein Albumin Triglycerides Arterial Blood Glucose Urine WBC (Auto) Salicylates Acetaminophen 05/29/21 05/29/21 05/29/21 03:00 05:02 05:02 WBC 13.0 H RBC Hgb Hct MCH MCHC RDW 15.4 H Plt Count Lymph % (Auto) Love % (Auto) Love # (Auto) Seg Neutrophils % Seg Neuts % (Manual) Lymphocytes % (Manual) Seg Neutrophils # Seg Neutrophils # Man Lymphocytes # (Manual) PT INR ABG pH POC ABG pCO2 POC ABG pO2 ABG pO2 138.1 H ABG HCO3 ABG O2 Saturation ABG Base Excess -3.6 L ABG Hemoglobin 12.8 L ABG Oxyhemoglobin ABG Potassium ABG Glucose Oxyhemoglobin Carboxyhemoglobin Sodium 150 H Potassium Chloride 119.8 H Carbon Dioxide 18 L BUN Creatinine Glucose 109 H POC Glucose Lactic Acid Calcium Phosphorus 2.20 L Magnesium 1.50 L Total Bilirubin Direct Bilirubin AST Total Creatine Kinase C-Reactive Protein NT-Pro-B Natriuret Pep Total Protein Albumin Triglycerides Arterial Blood Glucose Urine WBC (Auto) Salicylates Acetaminophen 05/29/21 05/29/21 05/30/21 17:00 23:37 04:29 WBC RBC Hgb 10.8 L Hct 33.4 L MCH MCHC RDW 15.7 H Plt Count Lymph % (Auto) Love % (Auto) Love # (Auto) Seg Neutrophils % Seg Neuts % (Manual) Lymphocytes % (Manual) Seg Neutrophils # Seg Neutrophils # Man Lymphocytes # (Manual) PT INR ABG pH POC ABG pCO2 POC ABG pO2 ABG pO2 ABG HCO3 ABG O2 Saturation ABG Base Excess ABG Hemoglobin ABG Oxyhemoglobin ABG Potassium ABG Glucose Oxyhemoglobin Carboxyhemoglobin Sodium Potassium Chloride Carbon Dioxide BUN Creatinine Glucose POC Glucose 114 H 122 H Lactic Acid Calcium Phosphorus Magnesium Total Bilirubin Direct Bilirubin AST Total Creatine Kinase C-Reactive Protein NT-Pro-B Natriuret Pep Total Protein Albumin Triglycerides Arterial Blood Glucose Urine WBC (Auto) Salicylates Acetaminophen 05/30/21 05/30/21 05/31/21 04:29 23:36 04:00 WBC 11.2 H RBC Hgb 10.9 L Hct 34.3 L MCH MCHC RDW 15.4 H Plt Count Lymph % (Auto) Love % (Auto) Love # (Auto) Seg Neutrophils % Seg Neuts % (Manual) Lymphocytes % (Manual) Seg Neutrophils # Seg Neutrophils # Man Lymphocytes # (Manual) PT INR ABG pH POC ABG pCO2 POC ABG pO2 ABG pO2 ABG HCO3 ABG O2 Saturation ABG Base Excess ABG Hemoglobin ABG Oxyhemoglobin ABG Potassium ABG Glucose Oxyhemoglobin Carboxyhemoglobin Sodium Potassium 3.2 L Chloride 112.4 H Carbon Dioxide 21 L BUN Creatinine 0.7 L Glucose 128 H POC Glucose 120 H Lactic Acid Calcium Phosphorus Magnesium Total Bilirubin Direct Bilirubin AST Total Creatine Kinase C-Reactive Protein NT-Pro-B Natriuret Pep Total Protein Albumin Triglycerides Arterial Blood Glucose Urine WBC (Auto) Salicylates Acetaminophen 05/31/21 05/31/21 05/31/21 04:00 11:50 16:16 WBC RBC Hgb Hct MCH MCHC RDW Plt Count Lymph % (Auto) Love % (Auto) Love # (Auto) Seg Neutrophils % Seg Neuts % (Manual) Lymphocytes % (Manual) Seg Neutrophils # Seg Neutrophils # Man Lymphocytes # (Manual) PT INR ABG pH POC ABG pCO2 POC ABG pO2 ABG pO2 ABG HCO3 ABG O2 Saturation ABG Base Excess ABG Hemoglobin ABG Oxyhemoglobin ABG Potassium ABG Glucose Oxyhemoglobin Carboxyhemoglobin Sodium 148 H Potassium Chloride 114.8 H Carbon Dioxide BUN Creatinine Glucose 151 H POC Glucose 123 H 107 H Lactic Acid Calcium Phosphorus Magnesium Total Bilirubin Direct Bilirubin AST Total Creatine Kinase C-Reactive Protein NT-Pro-B Natriuret Pep Total Protein Albumin Triglycerides Arterial Blood Glucose Urine WBC (Auto) Salicylates Acetaminophen 06/01/21 06/01/21 06/01/21 02:55 04:10 04:10 WBC 16.5 H RBC Hgb Hct MCH MCHC RDW 16.0 H Plt Count Lymph % (Auto) Love % (Auto) Love # (Auto) Seg Neutrophils % Seg Neuts % (Manual) Lymphocytes % (Manual) Seg Neutrophils # Seg Neutrophils # Man Lymphocytes # (Manual) PT INR ABG pH 7.334 L POC ABG pCO2 POC ABG pO2 ABG pO2 ABG HCO3 26.1 H ABG O2 Saturation ABG Base Excess ABG Hemoglobin 12.6 L ABG Oxyhemoglobin ABG Potassium ABG Glucose Oxyhemoglobin 93.1 L Carboxyhemoglobin Sodium 148 H Potassium 3.4 L Chloride 108.8 H Carbon Dioxide BUN Creatinine Glucose 113 H POC Glucose Lactic Acid Calcium Phosphorus Magnesium Total Bilirubin Direct Bilirubin AST Total Creatine Kinase C-Reactive Protein NT-Pro-B Natriuret Pep Total Protein Albumin Triglycerides Arterial Blood Glucose Urine WBC (Auto) Salicylates Acetaminophen 06/01/21 06/01/21 06/02/21 12:46 15:30 05:42 WBC RBC Hgb Hct MCH MCHC RDW Plt Count Lymph % (Auto) Love % (Auto) Love # (Auto) Seg Neutrophils % Seg Neuts % (Manual) Lymphocytes % (Manual) Seg Neutrophils # Seg Neutrophils # Man Lymphocytes # (Manual) PT INR ABG pH POC ABG pCO2 POC ABG pO2 ABG pO2 114.5 H 141.2 H ABG HCO3 29.6 H 30.6 H ABG O2 Saturation ABG Base Excess 4.5 H 4.1 H ABG Hemoglobin 11.8 L 12.0 L ABG Oxyhemoglobin ABG Potassium ABG Glucose Oxyhemoglobin Carboxyhemoglobin Sodium Potassium Chloride Carbon Dioxide BUN Creatinine Glucose POC Glucose 119 H Lactic Acid Calcium Phosphorus Magnesium Total Bilirubin Direct Bilirubin AST Total Creatine Kinase C-Reactive Protein NT-Pro-B Natriuret Pep Total Protein Albumin Triglycerides Arterial Blood Glucose Urine WBC (Auto) Salicylates Acetaminophen 06/02/21 06/02/21 06/02/21 07:41 07:41 07:41 WBC 17.4 H RBC Hgb 11.1 L Hct 34.3 L MCH MCHC RDW 15.9 H Plt Count Lymph % (Auto) Love % (Auto) Love # (Auto) Seg Neutrophils % Seg Neuts % (Manual) Lymphocytes % (Manual) Seg Neutrophils # Seg Neutrophils # Man Lymphocytes # (Manual) PT INR ABG pH POC ABG pCO2 POC ABG pO2 ABG pO2 ABG HCO3 ABG O2 Saturation ABG Base Excess ABG Hemoglobin ABG Oxyhemoglobin ABG Potassium ABG Glucose Oxyhemoglobin Carboxyhemoglobin Sodium 150 H Potassium Chloride 111.8 H Carbon Dioxide BUN Creatinine Glucose POC Glucose Lactic Acid Calcium Phosphorus Magnesium Total Bilirubin 3.30 H Direct Bilirubin 2.4 H AST 48 H Total Creatine Kinase C-Reactive Protein NT-Pro-B Natriuret Pep Total Protein 6.1 L Albumin 2.1 L Triglycerides Arterial Blood Glucose Urine WBC (Auto) Salicylates Acetaminophen 06/02/21 06/02/21 06/03/21 20:00 23:30 08:29 WBC 12.2 H RBC Hgb 11.7 L Hct MCH 27 L MCHC 31 L RDW 15.4 H Plt Count Lymph % (Auto) Love % (Auto) Love # (Auto) Seg Neutrophils % Seg Neuts % (Manual) Lymphocytes % (Manual) Seg Neutrophils # Seg Neutrophils # Man Lymphocytes # (Manual) PT INR ABG pH POC ABG pCO2 POC ABG pO2 ABG pO2 ABG HCO3 ABG O2 Saturation ABG Base Excess ABG Hemoglobin ABG Oxyhemoglobin ABG Potassium ABG Glucose Oxyhemoglobin Carboxyhemoglobin Sodium Potassium Chloride 111.1 H Carbon Dioxide BUN Creatinine 0.7 L Glucose 105 H POC Glucose 112 H Lactic Acid Calcium 8.3 L Phosphorus Magnesium Total Bilirubin 2.90 H Direct Bilirubin AST 53 H Total Creatine Kinase C-Reactive Protein NT-Pro-B Natriuret Pep Total Protein 6.2 L Albumin 1.8 L Triglycerides Arterial Blood Glucose Urine WBC (Auto) Salicylates Acetaminophen 06/03/21 06/03/21 06/04/21 Unknown Unknown 04:00 WBC RBC Hgb 10.2 L Hct 31.9 L D MCH MCHC RDW Plt Count Lymph % (Auto) Love % (Auto) Love # (Auto) Seg Neutrophils % Seg Neuts % (Manual) Lymphocytes % (Manual) Seg Neutrophils # Seg Neutrophils # Man Lymphocytes # (Manual) PT 16.7 H INR 1.22 H ABG pH POC ABG pCO2 51.5 H POC ABG pO2 61.7 L ABG pO2 ABG HCO3 ABG O2 Saturation ABG Base Excess ABG Hemoglobin ABG Oxyhemoglobin 90.9 L ABG Potassium ABG Glucose Oxyhemoglobin Carboxyhemoglobin 1.6 H Sodium Potassium Chloride Carbon Dioxide BUN Creatinine Glucose POC Glucose Lactic Acid Calcium Phosphorus Magnesium Total Bilirubin Direct Bilirubin AST Total Creatine Kinase C-Reactive Protein NT-Pro-B Natriuret Pep Total Protein Albumin Triglycerides Arterial Blood Glucose Urine WBC (Auto) Salicylates Acetaminophen 06/04/21 06/04/21 06/04/21 04:10 04:10 04:10 WBC 11.7 H RBC Hgb 11.2 L Hct MCH MCHC 31 L RDW 15.8 H Plt Count 447 H Lymph % (Auto) Love % (Auto) Love # (Auto) Seg Neutrophils % Seg Neuts % (Manual) Lymphocytes % (Manual) Seg Neutrophils # Seg Neutrophils # Man Lymphocytes # (Manual) PT 15.8 H INR 1.14 H ABG pH POC ABG pCO2 POC ABG pO2 ABG pO2 ABG HCO3 ABG O2 Saturation ABG Base Excess ABG Hemoglobin ABG Oxyhemoglobin ABG Potassium ABG Glucose Oxyhemoglobin Carboxyhemoglobin Sodium 146 H Potassium Chloride 109.4 H Carbon Dioxide BUN Creatinine 0.6 L Glucose 122 H POC Glucose Lactic Acid Calcium Phosphorus Magnesium Total Bilirubin Direct Bilirubin AST Total Creatine Kinase C-Reactive Protein NT-Pro-B Natriuret Pep Total Protein Albumin Triglycerides 161 H Arterial Blood Glucose Urine WBC (Auto) Salicylates Acetaminophen 06/04/21 05:16 WBC RBC Hgb Hct MCH MCHC RDW Plt Count Lymph % (Auto) Love % (Auto) Love # (Auto) Seg Neutrophils % Seg Neuts % (Manual) Lymphocytes % (Manual) Seg Neutrophils # Seg Neutrophils # Man Lymphocytes # (Manual) PT INR ABG pH POC ABG pCO2 POC ABG pO2 ABG pO2 ABG HCO3 ABG O2 Saturation ABG Base Excess ABG Hemoglobin ABG Oxyhemoglobin ABG Potassium ABG Glucose Oxyhemoglobin Carboxyhemoglobin Sodium Potassium Chloride Carbon Dioxide BUN Creatinine Glucose POC Glucose 107 H Lactic Acid Calcium Phosphorus Magnesium Total Bilirubin Direct Bilirubin AST Total Creatine Kinase C-Reactive Protein NT-Pro-B Natriuret Pep Total Protein Albumin Triglycerides Arterial Blood Glucose Urine WBC (Auto) Salicylates Acetaminophen Allied health notes reviewed: nursing
[2021-06-04] MEDS ORDERED: ROCURONIUM 50 MG/5 ML INJ IV ONE (12:39)
[2021-06-04] MEDS ORDERED: ePHEDrine SULFATE 50 MG/1 ML INJ ONE (12:40)
[2021-06-04] MEDS ORDERED: fentaNYL 100 MCG/2 ML INJ ONE (12:40)
[2021-06-04] MEDS ORDERED: BUPIVACAINE/PF (0.25%) 2.5 MG/ML 30 ML VIAL INFILTRATI ONE (13:05)
[2021-06-04] MEDS ORDERED: LIDOCAINE (1%) 10 MG/1 ML VIAL 20 ML MDV ONE (13:05)
[2021-06-04] MEDS ORDERED: LIDOCAINE 1%/EPINEPHRINE 1:100,000 VIAL (20 ML) INFILTRATI ONE (14:03)
[2021-06-04] MEDS ORDERED: propofoL 200 MG/20 ML VIAL IV ONE (14:33)
--- NOTE | 2021-06-04 14:38 | Operative Report ---
Operative Report Operative Report: Date:06/04/2021 Surgeon:Bruce Salmeron MD Pre-op diagnosis: respiratory Post-op diagnosis: same as pre-op Procedure: fiberoptic bronchoscopy Anesthesia:GETA Indication: Patient is a 40 year old male. Patient intubated and sedated therefore unable to provided detail history. The patient has been unable to be weaned from the ventilator and therefore tracheostomy with assistance of fiberoptic bronchoscopy is indicated along with PEG tube placement. All risks were discussed with the family, and consent obtained. Procedure in detail: The patient was identified in the hospital bed in the ICU and brought down to the OR. After anesthesia was induced, the fiberoptic bronchoscope was passed through the endotracheal tube using an adapter. The trachea and erica were visualized, there was a normal appearance of the mucosa and no debris or fluid was seen. At this point, Dr. Long who performed the tracheostomy portion of the procedure (please see separate operative note), asked for the endotracheal tube to be withdrawn slowly. The upper trachea was visualized and appeared normal. At this point, Dr. Long placed the tracheostomy tube under direct visualization by fiberoptic bronchoscopy. Please see separate operative note for more details on Tracheostomy placement. Once the tracheostomy tube was placed, the bronchoscope was withdrawn from the endotracheal tube and placed through the tracheostomy tube. The tracheostomy tube appeared to be in good position approximately 4cm above the erica. The bronchoscope was then withdrawn. The procedure was terminated and the patient was returned to ICU in stable condition. Complication: none immediate
--- NOTE | 2021-06-04 14:39 | Operative Report ---
Operative Report Operative Report: Date: 06/04/2021 Surgeon: Bruce Salmeron MD Co-Surgeon: Shey Long DO Pre-op Dx: respiratory failure Post-op Dx: same as pre-op Anesthesia: GETA Indiction: Pt is a 40 year old male who is an able to weaned from ventilator and also requiring custodial tube feeds. He is here today for PEG tube placemen t. Family signed informed consent. Details of procedure: A mouth guard was placed through which a flexible endoscope was passed through the mouth and into the esophagus. The NG tube was visualized along the way. The endoscope was advanced through the esophagus and into the stomach. The stomach was unremarkable. The stomach was insufflated and transillumination performed. An area of transillumination was visualized in the left upper quadrant and marked. Dr. Long performed the beside tube placement. The skin was then prepped and draped in usual sterile fashion. Local anesthetic was infiltrated to the skin at the intended incision site. A small incision was made in the skin using an 11 blade. An introducer needle/breakaway sheath was inserted directly through this incision into the stomach under direct endoscopic visualization. The needle was removed. The wire was passed and grasped with a snare by the administrative assistant coordinator and the wire pulled along with the endoscope through the mouth. The PEG tube was assembled onto the wire and pulled back through the mouth and down into the stomach. The outer bumper was at 4 cm at the skin. The PEG tube was cut to size and assembled in the usual fashion. A drain sponge was applied between the skin and the PEG tube and the tube secured with tape. I then reinserted the endoscope into the mouth and down into the stomach. The PEG tube inner bumper was seen to lay flush against the gastric mucosa without tension. There is no bleeding. The pylorus was entered and the first portion of the duodenum was unremarkable. The scope was then withdrawn back into the stomach and retroflexed. The entirety of the stomach was unremarkable. The NG tube was withdrawn. The stomach was then desufflated and the endoscope withdrawn. EBL: minimal Complications: none immediate
--- NOTE | 2021-06-04 14:44 | Operative Report ---
Operative Report Operative Report: Date of surgery: 06/04/2019 Preoperative diagnosis: Vent dependence Postoperative diagnosis: Same as above Procedure: Percutaneous tracheostomy Surgeon: Paloma Long DO Anesthesia: Geta, local Findings: Good placement of tracheostomy as visualized by fiberoptic bronchoscopy EBL: LESS than 5 cc Specimen: None Complications: None Disposition: Stable to ICU HPI and indication: Patient is a 40-year-old male who was admitted to the hospital after an overdose. He has been on mechanical ventilation. Despite multiple attempts to wean from the ventilator and extubate the patient he has required reintubation. As he cannot be safely weaned from the ventilator, a tracheostomy was requested by the radiology practitioner assistant. All risk, benefits, alternatives to the procedure were discussed with the patient's mother and questions answered. Consent obtained for percutaneous possible open tracheostomy, fiberoptic bronchoscopy, PEG tube placement. Procedure in detail: The patient was identified in the ICU and brought down to the operating room and positioned in supine position in the hospital bed. Consent was verified on the chart timeout was performed. The neck was prepped and draped in usual sterile fashion. Anesthesia was administered. A shoulder roll was placed, with the patient's neck mildly hyperextended.. Dr. Salmeron provider performed fiberoptic bronchoscopy throughout the entire procedure. The fiberoptic bronchoscope was inserted through the endotracheal tube via the adapter and the trachea examined. The trachea was unremarkable and the 7.5 ET tube was approximately 3 cm from erica at 24 cm at the lip. 1% lidocaine was infiltrated into the skin and subcutaneous tissue approximately 2 fingerbreadths above the sternal notch. A 2 cm incision was made in a horizontal fashion using a 15 blade. Using a hemostat the soft tissues were bluntly dissected until the trachea was encountered. Any bleeding was carefully controlled using electrocautery. The ET tube was then pulled back slowly to 17 cm. Using the introducer needle, the trachea was entered under direct visualization. The wire was passed down the trachea towards the erica. Introducer needle was then removed. The trachea was then serially dilated, after which a 8 [place] Shiley tracheostomy tube was inserted. The balloon was visualized via fiberoptic bronchoscopy. The balloon was inflated, patient placed back on ventilator. There was end-tidal CO2 detected and tidal volumes assessed which were satisfactory. The bronchoscope was then placed through the tracheostomy and showed good positioning of the tracheostomy approximately 4 cm above the erica and no bleeding. A drain sponge was placed between the skin and tracheostomy. The tracheostomy was secured to the patient's neck using a tracheostomy strap and 2-0 Prolene interrupted stitches. Surgicel was placed around the skin incision for further hemostasis. A post op chest x-ray is pending. The patient tolerated the procedure well. All sharps were disposed of appropriately. The patient was taken back to the ICU in stable condition. Patient's mother was updated.
[2021-06-04] MEDS: MIDAZOLAM 100 MG in SODIUM CHLORIDE 0.9% 80 ML IV SCH (14:46)
--- NOTE | 2021-06-04 15:52 | XRay Report ---
CHEST 1 VIEW INDICATION: trach placement. COMPARISON: 06/04/2021 FINDINGS: Support devices: Endotracheal tube has been replaced with a tracheostomy which appears in good positi on. Nasogastric tube is also been removed. Heart: Stable mild cardiomegaly Lungs/Pleura: Stable left lower lobe opacity or small effusion. The lungs are clear otherwise. No pne umothorax. Additional findings: None. IMPRESSION: No acute findings. Signer Name: Dhruv De La Cruz Jr, MD Signed: 06/04/2021 3:47 PM Workstation Name: [id number]
--- NOTE | 2021-06-04 17:09 | Post Anesthesia Evaluation ---
- Post Anesthesia Evaluation Patient Participated: Yes Airway Patent: Yes Stable Respiratory Function: Yes Nausea/Vomiting: No Temp > 96.8F: Yes Pain Manageable: Yes Adequeate Hydration: Yes Anesthesia Complications: No Block Receding Appropriately: Not Applicable Patient on Ventilator: No
--- NOTE | 2021-06-04 17:48 | Progress Note ---
<NAUN RASHIDNina - Last Filed: 06/04/21 17:50> Assessment and Plan Assessment and plan: This is a 40-year-old male with HFrEF, methamphetamine and nicotine dependence admitted for drug overdose and acute metabolic encephalopathy. Patient was intubated in the emergency department for airway protection. Assessment and Plan Acute toxic metabolic encephalopathy, overdose, h/o polysubstance abuse -UDS positive for amphetamines -Sedated with Precedex, propofol, versed and fentayl gtt -CTH with no acute findings -MRI Brain with no acute findings except sinusitis -added unsyn -Maintain sleep-wake cycle -Reorientation as needed -Consider mental evaluation to assess for readiness to stop polysubstance abuse Acute hypoxic respiratory failure -Intubated on 05/23 in the ED for airway protection with 7.50 ETT at 24 at the lips and extubated 05/31 -Patient reintubated on 06/01 due to tachypnea and increased work of breathing with 7.50 ETT at 24 the lips -Vent settings: AC rate 20, tidal volume 350, FiO2 40, PEEP 8 -See RT notes for titration -surgery consulted for peg/trach -Pulmonary hygiene -SPO2 monitoring Acute right upper extremity DVT -Heparin drip -Hold 4 hours preprocedure -Traction per protocol -Noted on right upper extremity DVT Possible Retained foreign object in right upper extremity, ruled out -Noted by preparatory technician -Vascular surgery consulted, appreciate recommendations -Bedside ultrasound by Dr. Angie orr who stated it appeared to be is fibrin sheath however -CT of upper extremity shows no retained object Acute kidney injury secondary to acute tubular necrosis (resolved), hypernatremia (improved) -BUN/creatinine increased to 3.5/33 -Nephrology consulted, appreciate recommendations -Strict intake and output -Maintain Fajardo catheter -Avoid nephrotoxic medications -Renally dose medications -Trend BMP -Free water flush -will decrease tomorrow -Replete potassium Sepsis (POA), lactic acidosis, leukocytosis, sinusitis -Presented with febrile illness, lactic acidosis, leukocytosis now with hypotension -COVID-19 PCR negative -UA negative -Blood culture/urine culture no growth to date -Tracheal aspirate with beta-hemolytic strep group F -S/p ABX for 3 days -S/p vasopressor support -Monitor fever and WBC curve -Started on Unsyn HFrEF, cardiomegaly - Cardiology on consult, appreciated recommendations -Per cardiology -05/25/2021: Echo- EF 20 to 25%. Severe global hypokinesis of left ventricle. Left ventricle is moderately dilated. Doppler flow suggests impaired LV relaxation. Moderate mitral regurgitation. No pericardial effusion -08/04/2020: Cardiac cath- Angiographically normal coronary arteries. This is indicative of a nonischemic cardiomyopathy. Mildly elevated biventricular filling pressures with normal cardiac index -08/02/2020: Echo- EF 18%,Severe global LV hypokinesis. Normal LV diastolic function. LA mildly dilated. Moderate mitral regurgitation with an eccentric MR jet(s),No previous echocardiogram for comparison. -S/p IV Lasix -midodrine tid DVT/GI prophylaxis -Heparin gtt, PPI -SCD to bilateral lower extremities while in bed -Trend CBC -Transfuse for hemoglobin less than seven The high probability of a clinically significant, sudden or life threatening deterioration of the [multiple] system(s) required my full and direct attention, intervention and personal management. The aggregate critical care time was [60] minutes. This time is in addition to time spent performing reported procedures but includes the following: [x] Data Review and interpretation [x] Patient assessment and monitoring of vital signs [x] Documentation [x] Medication orders and management Disposition Plan: ICU Total Time Spent with Patient (Minutes): 60 Disposition Plan: icu Total Time Spent with Patient (Minutes): 60 History Interval history: This is a 40-year-old male with methamphetamine and nicotine dependence who presented to the emergency department via EMS was called after the being found down and unresponsive by family. Per family patient "overdose on GHB." EMS administered intranasal Narcan without improvement in symptoms and transferred the patient to [facility] for further evaluation. Patient was intubated in the emergency department for airway protection. Patient was admitted to the hospital service with acute encephalopathy, hypothermia, respiratory failure with consults to [facility]. Hospital Course to date: 05/25/2021: Worsening interstitial infiltrates. unclear if this is a developing pneumonia from aspiration/volume overload. Empiric abx coverage. ECHO with bubble study ordered. Placed on iv abx. kidney function improving. 05/26/2021: Tachycardic on levo gtt, advised RN to titrate down as long as MAP > 65. HR improved on my follow up encounter. PCCM titrating vent down. Renal function improving....Cr now 1.3. No indication for NEEDLE BAR MOLDER at this time per nephro. 05/27/2021: Extubated yesterday however in respiratory distress, re-intubated. Patient has severe systolic heart failure. Cardiology consulted for severe syst olic heart failure. Will need to discuss optimal strategy regarding diuresis. 05/28: Patient remains on the vent. Febrile overnight, no longer on IV abx, leukocytosis improved, will panculture patient for now hold off on IV Abx. D/W CCM plan to wean sedation, depends on patient's mental status possible extubation today. Patient with low EF 20 to 25%, IVF D/nickolas. FWF for hypernatrenia, repeat lab in the am. 05/29- With increased agitation and tachycardia, maxed out on precedex and fentanyl gtt. Patient appears to be in withdrawal, Ativan added. Remains febrile, off pressors this am, leukocytosis improved. Continue to f/u on culture data. Hypernatremia this am, on D5w per nephro, electrolyte repleted, repeat labs in the am 05/30: Patient very aggresive this am maxed on sedation, X1 dose of Geodeon ordered. Now on low dose Levophed, patient still with low grade fevers this am. Hypotension is probably r/t sedation. Recent cultures with NGTD, UA negative. Continue to monitor for now. Na improved, IVF off this and K repleted, repeat labs in the am. 05/31: Patient was extubated today, IV fluid discontinued, given Lasix per cardiology, increasing free water flush. Weaned off Levophed. Patient noted to be lethargic several hours post Precedex infusion discontinuation. Patient extubated to BiPAP after given racemic epinephrine. Patient remains lethargic and off of BiPAP will consider CT head in the a.m. 06/01: Patient remained on BiPAP overnight, given agitation as needed Haldol/Ati van and Benadryl given while patient remained maxed on Precedex. Given increased work of breathing and tachypnea patient was electively reintubated. Free water flushes/tube feeding/p.o. medications to restart upon confirmation of DHT. Lasix stopped per cardiology recommendations. CT head ordered. 06/02: Started on midodrine 3 times daily per cardiology as patient has soft blood pressures and required Levophed overnight. Upper extremity with PICC noted to have significant swelling and possible discoloration around insertion site. Ordered RN to remove PICC and use peripheral IVs as patient does not have any medications requiring central access at this time. Hypernatremia worsened however patient did not receive multiple doses of free water flush while on continuous BiPAP. [facility] made vent changes. Surgery consulted. 06/03: Patient noted to have an acute DVT in right upper extremity and started on heparin drip. vibration technician noted possible foreign object retained and vascular surgery was consulted. Obtain CT of upper extremity. Surgery was consulted for trach/PEG. Patient remains on max doses of fentanyl, propofol and Precedex. Versed added. Started on Unasyn. MRI brain ordered. 06/04: Patient received a trach/PEG today, remains on propofol, Versed, fentanyl. Heparin drip off and tube feeding off for surgery. Hospitalist Physical - Constitutional Vitals: Temp Pulse Resp BP Pulse Ox 99.2 F 100 H 18 104/54 98 06/04/21 12:00 06/04/21 16:50 06/04/21 16:45 06/04/21 16:50 06/04/21 16:50 General appearance: Present: mild distress, obese, other (Intubated and sedated) - EENT Eyes: Present: PERRL, EOM intact ENT: hearing intact, clear oral mucosa, dentition normal - Neck Neck: Present: normal ROM - Respiratory Respiratory effort: normal - Cardiovascular Rhythm: regular Heart Sounds: Present: S1 & S2. Absent: systolic murmur, diastolic murmur - Extremities Extremities: no ischemia, pulses intact, pulses symmetrical, No edema, normal temperature, normal color Peripheral Pulses: within normal limits - Abdominal General gastrointestinal: soft, non-tender, non-distended, normal bowel sounds - Integumentary Integumentary: Present: warm, dry - Psychiatric Psychiatric: cooperative, agitated - Neurologic Neurologic: CNII-XII intact, moves all extremities - Allied Health Allied health notes reviewed: nursing, RT, social work HEART Score - HEART Score Troponin: Troponin T < 0.010 ng/mL (0.00-0.029) 05/23/21 09:38 Results - Labs CBC & Chem 7: 06/04/21 04:10 06/04/21 04:10 Labs: Laboratory Last Values WBC 11.7 K/mm3 (4.5-11.0) H 06/04/21 04:10 RBC 4.06 M/mm3 (3.65-5.03) 06/04/21 04:10 Hgb 11.2 gm/dl (11.8-15.2) L 06/04/21 04:10 Hct 36.0 % (35.5-45.6) 06/04/21 04:10 MCV 89 fl (84-94) 06/04/21 04:10 MCH 28 pg (28-32) 06/04/21 04:10 MCHC 31 % (32-34) L 06/04/21 04:10 RDW 15.8 % (13.2-15.2) H 06/04/21 04:10 Plt Count 447 K/mm3 (140-440) H 06/04/21 04:10 Lymph % (Auto) 11.2 % (13.4-35.0) L 05/28/21 10:05 [place] % (Auto) 8.6 % (0.0-7.3) H 05/28/21 10:05 Eos % (Auto) 0.8 % (0.0-4.3) 05/28/21 10:05 Baso % (Auto) 0.5 % (0.0-1.8) 05/28/21 10:05 Lymph # (Auto) 1.3 K/mm3 (1.2-5.4) 05/28/21 10:05 [place] # (Auto) 1.0 K/mm3 (0.0-0.8) H 05/28/21 10:05 Eos # (Auto) 0.1 K/mm3 (0.0-0.4) 05/28/21 10:05 Baso # (Auto) 0.1 K/mm3 (0.0-0.1) 05/28/21 10:05 Add Manual Diff Complete 05/27/21 03:18 Total Counted 100 05/27/21 03:18 Seg Neutrophils % 78.9 % (40.0-70.0) H 05/28/21 10:05 Seg Neuts % (Manual) 92.0 % (40.0-70.0) H 05/27/21 03:18 Band Neutrophils % 0 % 05/27/21 03:18 Lymphocytes % (Manual) 5.0 % (13.4-35.0) L 05/27/21 03:18 Reactive Lymphs % (Man) 0 % 05/27/21 03:18 Monocytes % (Manual) 3.0 % (0.0-7.3) 05/27/21 03:18 Eosinophils % (Manual) 0 % (0.0-4.3) 05/27/21 03:18 Basophils % (Manual) 0 % (0.0-1.8) 05/27/21 03:18 Metamyelocytes % 0 % 05/27/21 03:18 Myelocytes % 0 % 05/27/21 03:18 Promyelocytes % 0 % 05/27/21 03:18 Blast Cells % 0 % 05/27/21 03:18 Nucleated RBC % Not Reportable 05/27/21 03:18 Seg Neutrophils # 9.0 K/mm3 (1.8-7.7) H 05/28/21 10:05 Seg Neutrophils # Man 19.8 K/mm3 (1.8-7.7) H 05/27/21 03:18 Band Neutrophils # 0.0 K/mm3 05/27/21 03:18 Lymphocytes # (Manual) 1.1 K/mm3 (1.2-5.4) L 05/27/21 03:18 Abs React Lymphs (Man) 0.0 K/mm3 05/27/21 03:18 Monocytes # (Manual) 0.6 K/mm3 (0.0-0.8) 05/27/21 03:18 Eosinophils # (Manual) 0.0 K/mm3 (0.0-0.4) 05/27/21 03:18 Basophils # (Manual) 0.0 K/mm3 (0.0-0.1) 05/27/21 03:18 Metamyelocytes # 0.0 K/mm3 05/27/21 03:18 Myelocytes # 0.0 K/mm3 05/27/21 03:18 Promyelocytes # 0.0 K/mm3 05/27/21 03:18 Blast Cells # 0.0 K/mm3 05/27/21 03:18 WBC Morphology Not Reportable 05/27/21 03:18 Hypersegmented Neuts Not Reportable 05/27/21 03:18 Hyposegmented Neuts Not Reportable 05/27/21 03:18 Hypogranular Neuts Not Reportable 05/27/21 03:18 Smudge Cells Not Reportable 05/27/21 03:18 Toxic Granulation Not Reportable 05/27/21 03:18 Toxic Vacuolation Not Reportable 05/27/21 03:18 Dohle Bodies Not Reportable 05/27/21 03:18 Pelger-Huet Anomaly Not Reportable 05/27/21 03:18 Glenn Rods Not Reportable 05/27/21 03:18 Platelet Estimate Consistent w auto 05/27/21 03:18 Clumped Platelets Not Reportable 05/27/21 03:18 Plt Clumps, EDTA Not Reportable 05/27/21 03:18 Large Platelets Not Reportable 05/27/21 03:18 Giant Platelets Not Reportable 05/27/21 03:18 Platelet Satelliting Not Reportable 05/27/21 03:18 Plt Morphology Comment Not Reportable 05/27/21 03:18 RBC Morphology Normal 05/27/21 03:18 Dimorphic RBCs Not Reportable 05/27/21 03:18 Polychromasia Not Reportable 05/27/21 03:18 Hypochromasia Not Reportable 05/27/21 03:18 Poikilocytosis Not Reportable 05/27/21 03:18 Anisocytosis Not Reportable 05/27/21 03:18 Microcytosis Not Reportable 05/27/21 03:18 Macrocytosis Not Reportable 05/27/21 03:18 Spherocytes Not Reportable 05/27/21 03:18 Pappenheimer Bodies Not Reportable 05/27/21 03:18 Sickle Cells Not Reportable 05/27/21 03:18 Target Cells Not Reportable 05/27/21 03:18 Tear Drop Cells Not Reportable 05/27/21 03:18 Ovalocytes Not Reportable 05/27/21 03:18 Helmet Cells Not Reportable 05/27/21 03:18 [place] Bodies Not Reportable 05/27/21 03:18 Deputy Rings Not Reportable 05/27/21 03:18 [place] Cells Not Reportable 05/27/21 03:18 Bite Cells Not Reportable 05/27/21 03:18 Crenated Cell Not Reportable 05/27/21 03:18 Elliptocytes Not Reportable 05/27/21 03:18 Acanthocytes (Spur) Not Reportable 05/27/21 03:18 Rouleaux Not Reportable 05/27/21 03:18 Hemoglobin C Crystals Not Reportable 05/27/21 03:18 Schistocytes Not Reportable 05/27/21 03:18 Malaria parasites Not Reportable 05/27/21 03:18 Frandy Bodies Not Reportable 05/27/21 03:18 Hem Pathologist Commnt No 05/27/21 03:18 PT 15.8 Sec. (12.2-14.9) H 06/04/21 04:10 INR 1.14 (0.87-1.13) H 06/04/21 04:10 APTT 36.1 Sec. (24.2-36.6) 06/03/21 Unknown Heparin Anti-Xa Level 0.57 U.I./ml (0.3-0.7) 06/04/21 00:03 ABG pH 7.406 (7.320-7.450) 06/04/21 04:00 POC ABG pCO2 51.5 mmHg (32.0-48.0) H 06/04/21 04:00 ABG pCO2 54.4 mm Hg 06/02/21 05:42 POC ABG pO2 61.7 mmHg (83-108) L 06/04/21 04:00 ABG pO2 141.2 mm Hg (80.0-90.0) H 06/02/21 05:42 POC ABG HCO3 31.6 06/04/21 04:00 ABG HCO3 30.6 mmol/L (20.0-26.0) H 06/02/21 05:42 ABG O2 Saturation 92.7 (0-100) 06/04/21 04:00 ABG O2 Content 16.6 (0.0-44) 06/02/21 05:42 POC ABG Base Excess 5.7 06/04/21 04:00 ABG Base Excess 4.1 mmol/L (-2.0-3.0) H 06/02/21 05:42 ABG Hemoglobin 12.7 (12.0-17.5) 06/04/21 04:00 ABG Oxyhemoglobin 90.9 (94-98) L 06/04/21 04:00 ABG Carboxyhemoglobin 1.5 % (0.0-5.0) 06/02/21 05:42 ABG Methemoglobin 0.3 (0.0-1.5) 06/04/21 04:00 ABG Sodium 137.9 mmol/L (136.0-145.0) 05/24/21 03:44 ABG Potassium 5.6 mmol/L (3.40-4.50) H 05/24/21 03:44 ABG Chloride 105.0 mmol/L (98-107) 05/24/21 03:44 ABG Glucose 53 mg/dL (65-95) L 05/24/21 03:44 Oxyhemoglobin 96.7 % (95.0-99.0) 06/02/21 05:42 Carboxyhemoglobin 1.6 (0.5-1.5) H 06/04/21 04:00 FiO2 50 % 06/02/21 05:42 FiO2 % 35.0 06/04/21 04:00 Sodium 146 mmol/L (137-145) H 06/04/21 04:10 Potassium 3.7 mmol/L (3.6-5.0) 06/04/21 04:10 Chloride 109.4 mmol/L (98-107) H 06/04/21 04:10 Carbon Dioxide 29 mmol/L (22-30) 06/04/21 04:10 Anion Gap 11 mmol/L 06/04/21 04:10 BUN 9 mg/dL (9-20) 06/04/21 04:10 Creatinine 0.6 mg/dL (0.8-1.3) L 06/04/21 04:10 Estimated GFR > 60 ml/min 06/04/21 04:10 BUN/Creatinine Ratio 15 % 06/04/21 04:10 Glucose 122 mg/dL (75-100) H 06/04/21 04:10 POC Glucose 93 mg/dL (70-105) 06/04/21 11:07 Lactic Acid 2.10 mmol/L (0.7-2.0) H* 05/28/21 10:05 Calcium 9.1 mg/dL (8.4-10.2) 06/04/21 04:10 Phosphorus 3.00 mg/dL (2.5-4.5) 06/02/21 07:41 Magnesium 1.70 mg/dL (1.7-2.3) 06/02/21 07:41 Total Bilirubin 2.90 mg/dL (0.1-1.2) H 06/02/21 20:00 Direct Bilirubin 2.4 mg/dL (0-0.2) H 06/02/21 07:41 Indirect Bilirubin 0.9 mg/dL 06/02/21 07:41 AST 53 units/L (5-40) H 06/02/21 20:00 ALT 30 units/L (7-56) 06/02/21 20:00 Alkaline Phosphatase 115 units/L (35-129) 06/02/21 20:00 Total Creatine Kinase 556 units/L (55-170) H 05/24/21 09:35 Troponin T < 0.010 ng/mL (0.00-0.029) 05/23/21 09:38 C-Reactive Protein 34.80 mg/dL (0.00-1.30) H 05/28/21 10:05 NT-Pro-B Natriuret Pep 6058 pg/mL (0-450) H 05/23/21 09:38 Total Protein 6.2 g/dL (6.3-8.2) L 06/02/21 20:00 Albumin 1.8 g/dL (3.9-5) L 06/02/21 20:00 Albumin/Globulin Ratio 0.4 % 06/02/21 20:00 Triglycerides 161 mg/dL (2-149) H 06/04/21 04:10 Procalcitonin 12.51 ng/mL (<0.15) 05/28/21 10:05 Arterial Blood Glucose 53 mg/dL (65-95) L 05/24/21 03:44 Arterial Blood Ionized Calcium 4.6 mg/dL (4.6-5.3) 05/24/21 03:44 Urine Color Sherri (Yellow) 05/28/21 12:20 Urine Turbidity Clear (Clear) 05/28/21 12:20 Urine pH 6.0 (5.0-7.0) 05/28/21 12:20 Ur Specific [place] 1.017 (1.003-1.030) 05/28/21 12:20 Urine Protein 30 mg/dl mg/dL (Negative) 05/28/21 12:20 Urine Glucose (UA) Neg mg/dL (Negative) 05/28/21 12:20 Urine Ketones Neg mg/dL (Negative) 05/28/21 12:20 Urine Blood Mod (Negative) 05/28/21 12:20 Urine Nitrite Neg (Negative) 05/28/21 12:20 Urine Bilirubin Mod (Negative) 05/28/21 12:20 Urine Ictotest Positive (Negative) 05/28/21 12:20 Urine Urobilinogen 4.0 mg/dL (<2.0) 05/28/21 12:20 Ur Leukocyte Esterase Neg (Negative) 05/28/21 12:20 Urine WBC (Auto) 3.0 /HPF (0.0-6.0) 05/28/21 12:20 Urine RBC (Auto) 4.0 /HPF (0.0-6.0) 05/28/21 12:20 U Epithel Cells (Auto) < 1.0 /HPF (0-13.0) 05/28/21 12:20 Urine Bacteria (Auto) 1+ /HPF (Negative) 05/28/21 12:20 Urine Mucus Few /HPF 05/28/21 12:20 Urine Yeast (Budding) 1+ /HPF 05/24/21 Unknown Salicylates < 0.3 mg/dL (2.8-20.0) L 05/23/21 09:38 Urine Opiates Screen Negative 05/23/21 09:41 Urine Methadone Screen Negative 05/23/21 09:41 Acetaminophen 5.0 ug/mL (10.0-30.0) L 05/23/21 09:38 Ur Barbiturates Screen Negative 05/23/21 09:41 Ur Phencyclidine Scrn Negative 05/23/21 09:41 Ur Amphetamines Screen Positive 05/23/21 09:41 U Benzodiazepines Scrn Negative 05/23/21 09:41 Urine Cocaine Screen Negative 05/23/21 09:41 U Marijuana (THC) Screen Negative 05/23/21 09:41 Drugs of Abuse Note Disclamer 05/23/21 09:41 Coronavirus (PCR) Negative (Negative) 05/26/21 08:14 Hepatitis A IgM Ab Non-reactive (NonReactive) 05/27/21 16:00 Hep Bs Antigen Non-reactive (Negative) 05/27/21 16:00 Hep B Core IgM Ab Non-reactive (NonReactive) 05/27/21 16:00 Hepatitis C Antibody Non-reactive (NonReactive) 05/27/21 16:00 Microbiology: Microbiology 06/01/21 12:25 Tracheal Aspirate Sputum Culture - Final Fajardo/IV: Voiding Method Indwelling Catheter Active Medications - Current Medications Current Medications: Generic Name Dose Route Start Last Admin Trade Name Freq PRN Reason Stop Dose Admin Acetaminophen 650 mg 05/23/21 11:43 05/31/21 03:22 Acetaminophen 650 Mg Rect Supp [place] 650 mg Q6H PRN Administration Pain MILD(1-3)/Fever >100.5/EPSTEIN Lipase/Protease/Amylase 1 each 05/29/21 08:45 Lipase 10,500/Protease 25,000/Amylase 43,750 (Units) Dr Cap FEEDTUBE PRN PRN For Clogged Feeding Tube Dextrose 0 ml 05/31/21 10:47 Dextrose 10% *Hypoglycemia IV PRN PRN Hypoglycemia Famotidine 40 mg 06/02/21 22:00 06/03/21 21:11 Famotidine 20 Mg Tab FEEDTUBE 40 mg QHS MARK Administration Fentanyl 50 mcg 06/01/21 12:29 Fentanyl 100 Mcg/2 Ml Inj IV Q10MIN PRN ANALGESIA Haloperidol Lactate 5 mg 05/30/21 12:18 06/01/21 09:27 Haloperidol Lactate 5 Mg/1 Ml Inj IV 5 mg Q6H PRN Administration Agitation Heparin Sodium (Porcine) 4,100 unit 06/03/21 15:02 Heparin 10,000 Units/10 Ml Vial 40 unit/kg (4100 unit) IV Q6H PRN Anti-Xa Assay < 0.1 units/ml Hydrophilic Ointment 1 applic 06/01/21 12:30 Lip Therapy Vaseline TP Q2HR PRN Dry Lips Dexmedetomidine HCl 400 mcg/ 104 mls @ 5.307 mls/hr 05/24/21 05:00 06/04/21 15:00 Sodium Chloride IV 1.4 mcg/kg/hr TITRATE MARK 37.149 mls/hr Administration Protocol 0.2 MCG/KG/HR Fentanyl Citrate 2,000 mcg in 100 mls @ 5.103 mls/hr 06/01/21 13:00 06/04/21 17:13 Fentanyl Drip Premix IV 4 mcg/kg/hr TITR MRAK 20.412 mls/hr Administration Protocol 1 MCG/KG/HR Propofol 1,000 mg in 100 mls @ 3.062 mls/hr 06/01/21 12:10 06/04/21 17:12 Diprivan 10 Mg/Ml IV 40 mcg/kg/min TITR MARK 24.494 mls/hr Administration Protocol 5 MCG/KG/MIN Ampicillin Sodium/Sulbactam Sodium 3 gm in 100 mls @ 200 mls/hr 06/03/21 11:00 06/04/21 17:12 Unasyn/Ns 3 Gm/100 Ml IV 06/10/21 05:29 200 mls/hr Q6H MARK Administration Protocol Midazolam HCl 100 mg/ Sodium 100 mls @ 1 mls/hr 06/03/21 11:00 06/04/21 14:46 Chloride IV 1 mg/hr TITR MARK 1 mls/hr Administration Protocol 1 MG/HR Heparin Sodium/Sodium Chloride 25,000 unit in 500 mls @ 30 mls/hr 06/03/21 16:00 06/04/21 06:14 Heparin/ 0.45% Nacl-25,000 Unit/500 Ml IV 0 units/hr TITR MARK 0 mls/hr Titration Protocol 1,500 UNITS/HR Lorazepam 2 mg 05/31/21 11:00 06/03/21 09:20 Lorazepam 2 Mg/Ml Vial IV 2 mg Q4H PRN Administration Agitation Midazolam HCl 2 mg 06/03/21 10:06 Midazolam 2 Mg/2 Ml Inj IV Q10MIN PRN Sedation Midodrine 5 mg 06/02/21 12:00 06/04/21 17:12 Midodrine 5 Mg Tab PO 5 mg TID@0800,1200,1600 [facility] Administration Multi-Ingred Cream/Lotion/Oil/Oint 1 applic 06/01/21 12:30 Mineral Oil/Petrolatum, White Ophth Oint 3.5 Gm OU Q4HR PRN Dry Eye(s) Ondansetron HCl 4 mg 05/23/21 11:43 Ondansetron 4 Mg/2 Ml Inj IV Q8H PRN Nausea And Vomiting Senna/Docusate Sodium 1 tab 06/01/21 22:00 06/04/21 09:35 Sennosides/Docusate Sodium 8.6/50 Mg Tab FEEDTUBE 1 tab BID MARK Administration Simple Syrup 15 ml 05/29/21 08:45 Simple Syrup 15 Ml FEEDTUBE PRN PRN Hypoglycemia Simple Syrup 30 ml 05/29/21 08:45 Simple Syrup 15 Ml FEEDTUBE PRN PRN Hypoglycemia Sodium Bicarbonate 325 mg 05/29/21 08:45 Sodium Bicarbonate 325 Mg Tab FEEDTUBE PRN PRN For Clogged Feeding Tube Sodium Chloride 10 ml 05/23/21 22:00 06/04/21 09:35 Sodium Chloride 0.9% 10 Ml Flush Syringe IV 10 ml BID MARK Administration Sodium Chloride 10 ml 05/23/21 11:43 Sodium Chloride 0.9% 10 Ml Flush Syringe IV PRN PRN LINE FLUSH Sodium Chloride 10 ml 05/31/21 09:50 06/01/21 12:32 Sodium Chloride 0.9% 50 Ml Ivpb IV 10 ml PRN PRN Administration FLUSH Vitamin B Complex/Folic Acid 1 each 05/30/21 10:00 06/04/21 09:35 Folbee Plus Cz (Folic Acid/Vit Bcomp&C/Cu/Znox) PO 1 each QDAY MARK Administration Nutrition/Malnutrition Assess - Dietary Evaluation Nutrition/Malnutrition Findings: Nutrition Notes Start: 05/28/21 12:16 Freq: Status: Active Protocol: Document 05/31/21 15:28 GREGG (Rec: 05/31/21 15:51 GREGG [id number]) Nutrition Notes Initial or Follow up Brief Note Current Diet TF-Vital HP @ 70 ml/hr (since D 05/31). Height 6 ft Weight 102.058 kg [place] Body Weight (kg) 80.90 BMI 30.5 Weight change and time frame No body weight change in 2 days reported. Subjective/Other Information RD consult for routine F/u on TF tolerance. Pt extubated from mechanical ventilation, now on Bi-PaP+ tolerating well. TF continues as prescribed. Percent of energy/protein needs met: Prescribed Vital HP @ 70 ml/hr provides for energy/protein needs (1,655 Kcal/145 g) during LOS, 70% Kcal; 89% AA. #1 Nutrition Diagnosis Inadequate oral intake Diagnosis Progress(for reassessment Continues documentation) Is patient on ventilator? Yes Is Patient Ambulatory and/or Out of Bed No REE-([place]-confined to bed) 2364.912 Calculation Used for Recommendations 65-70% energy needs Additional Notes Energy needs: 3028-0568 kcal/ day Pro needs 2g/kg IBW: 162g/day Fluid needs 1ml/kcal Nutrition Intervention Nutrition Support: Continue Vital HP @ 70 ml/hr. Flush: 170 ml water Q 4 hr, or as per MD. Kcal 1,655 Protein (gm) 145 Carbohydrates (gm) 185 Fat (gm) 38 Fluid (mL) 1,384 Fiber (gm) 0 % RDI: 70% Kcal; 89% AA. Goal #1 Provide at least 75% of energy /protein needs through Enteral Feeding during LOS. Goal #2 Maintain body weight within +/ -3% of admission body weight during LOS. Follow-Up By: 06/07/21 Additional Comments Continue monitoring TF tolerance and BM. <MAVIS CARVALHO - Last Filed: 06/10/21 13:20> Assessment and Plan Assessment and plan: I saw and evaluated the patient. Discussed with the nurse practitioner and agree with their findings and plan as documented in this note. Hospitalist Physical - Constitutional Vitals: Temp Pulse Resp BP Pulse Ox 99.9 F H 90 26 H 112/62 99 06/10/21 12:00 06/10/21 12:48 06/10/21 12:00 06/10/21 12:48 06/10/21 12:48 HEART Score - HEART Score Troponin: Troponin T < 0.010 ng/mL (0.00-0.029) 05/23/21 09:38 Results - Labs CBC & Chem 7: 06/10/21 05:53 06/10/21 05:53 Labs: Laboratory Last Values WBC 10.8 K/mm3 (4.5-11.0) 06/10/21 05:53 RBC 3.68 M/mm3 (3.65-5.03) 06/10/21 05:53 Hgb 10.3 gm/dl (11.8-15.2) L 06/10/21 05:53 Hct 31.7 % (35.5-45.6) L 06/10/21 05:53 MCV 86 fl (84-94) 06/10/21 05:53 MCH 28 pg (28-32) 06/10/21 05:53 MCHC 32 % (32-34) 06/10/21 05:53 RDW 16.5 % (13.2-15.2) H 06/10/21 05:53 Plt Count 527 K/mm3 (140-440) H 06/10/21 05:53 Lymph % (Auto) 11.2 % (13.4-35.0) L 05/28/21 10:05 [place] % (Auto) 8.6 % (0.0-7.3) H 05/28/21 10:05 Eos % (Auto) 0.8 % (0.0-4.3) 05/28/21 10:05 Baso % (Auto) 0.5 % (0.0-1.8) 05/28/21 10:05 Lymph # (Auto) 1.3 K/mm3 (1.2-5.4) 05/28/21 10:05 [place] # (Auto) 1.0 K/mm3 (0.0-0.8) H 05/28/21 10:05 Eos # (Auto) 0.1 K/mm3 (0.0-0.4) 05/28/21 10:05 Baso # (Auto) 0.1 K/mm3 (0.0-0.1) 05/28/21 10:05 Add Manual Diff Complete 05/27/21 03:18 Total Counted 100 05/27/21 03:18 Seg Neutrophils % 78.9 % (40.0-70.0) H 05/28/21 10:05 Seg Neuts % (Manual) 92.0 % (40.0-70.0) H 05/27/21 03:18 Band Neutrophils % 0 % 05/27/21 03:18 Lymphocytes % (Manual) 5.0 % (13.4-35.0) L 05/27/21 03:18 Reactive Lymphs % (Man) 0 % 05/27/21 03:18 Monocytes % (Manual) 3.0 % (0.0-7.3) 05/27/21 03:18 Eosinophils % (Manual) 0 % (0.0-4.3) 05/27/21 03:18 Basophils % (Manual) 0 % (0.0-1.8) 05/27/21 03:18 Metamyelocytes % 0 % 05/27/21 03:18 Myelocytes % 0 % 05/27/21 03:18 Promyelocytes % 0 % 05/27/21 03:18 Blast Cells % 0 % 05/27/21 03:18 Nucleated RBC % Not Reportable 05/27/21 03:18 Seg Neutrophils # 9.0 K/mm3 (1.8-7.7) H 05/28/21 10:05 Seg Neutrophils # Man 19.8 K/mm3 (1.8-7.7) H 05/27/21 03:18 Band Neutrophils # 0.0 K/mm3 05/27/21 03:18 Lymphocytes # (Manual) 1.1 K/mm3 (1.2-5.4) L 05/27/21 03:18 Abs React Lymphs (Man) 0.0 K/mm3 05/27/21 03:18 Monocytes # (Manual) 0.6 K/mm3 (0.0-0.8) 05/27/21 03:18 Eosinophils # (Manual) 0.0 K/mm3 (0.0-0.4) 05/27/21 03:18 Basophils # (Manual) 0.0 K/mm3 (0.0-0.1) 05/27/21 03:18 Metamyelocytes # 0.0 K/mm3 05/27/21 03:18 Myelocytes # 0.0 K/mm3 05/27/21 03:18 Promyelocytes # 0.0 K/mm3 05/27/21 03:18 Blast Cells # 0.0 K/mm3 05/27/21 03:18 WBC Morphology Not Reportable 05/27/21 03:18 Hypersegmented Neuts Not Reportable 05/27/21 03:18 Hyposegmented Neuts Not Reportable 05/27/21 03:18 Hypogranular Neuts Not Reportable 05/27/21 03:18 Smudge Cells Not Reportable 05/27/21 03:18 Toxic Granulation Not Reportable 05/27/21 03:18 Toxic Vacuolation Not Reportable 05/27/21 03:18 Dohle Bodies Not Reportable 05/27/21 03:18 Pelger-Huet Anomaly Not Reportable 05/27/21 03:18 Glenn Rods Not Reportable 05/27/21 03:18 Platelet Estimate Consistent w auto 05/27/21 03:18 Clumped Platelets Not Reportable 05/27/21 03:18 Plt Clumps, EDTA Not Reportable 05/27/21 03:18 Large Platelets Not Reportable 05/27/21 03:18 Giant Platelets Not Reportable 05/27/21 03:18 Platelet Satelliting Not Reportable 05/27/21 03:18 Plt Morphology Comment Not Reportable 05/27/21 03:18 RBC Morphology Normal 05/27/21 03:18 Dimorphic RBCs Not Reportable 05/27/21 03:18 Polychromasia Not Reportable 05/27/21 03:18 Hypochromasia Not Reportable 05/27/21 03:18 Poikilocytosis Not Reportable 05/27/21 03:18 Anisocytosis Not Reportable 05/27/21 03:18 Microcytosis Not Reportable 05/27/21 03:18 Macrocytosis Not Reportable 05/27/21 03:18 Spherocytes Not Reportable 05/27/21 03:18 Pappenheimer Bodies Not Reportable 05/27/21 03:18 Sickle Cells Not Reportable 05/27/21 03:18 Target Cells Not Reportable 05/27/21 03:18 Tear Drop Cells Not Reportable 05/27/21 03:18 Ovalocytes Not Reportable 05/27/21 03:18 Helmet Cells Not Reportable 05/27/21 03:18 [place] Bodies Not Reportable 05/27/21 03:18 Deputy Rings Not Reportable 05/27/21 03:18 Giorgio Cells Not Reportable 05/27/21 03:18 Bite Cells Not Reportable 05/27/21 03:18 Crenated Cell Not Reportable 05/27/21 03:18 Elliptocytes Not Reportable 05/27/21 03:18 Acanthocytes (Spur) Not Reportable 05/27/21 03:18 Rouleaux Not Reportable 05/27/21 03:18 Hemoglobin C Crystals Not Reportable 05/27/21 03:18 Schistocytes Not Reportable 05/27/21 03:18 Malaria parasites Not Reportable 05/27/21 03:18 Frandy Bodies Not Reportable 05/27/21 03:18 Hem Pathologist Commnt No 05/27/21 03:18 PT 14.2 Sec. (12.2-14.9) 06/07/21 10:50 INR 0.99 (0.87-1.13) 06/07/21 10:50 APTT 36.1 Sec. (24.2-36.6) 06/03/21 Unknown Heparin Anti-Xa Level 0.34 U.I./ml (0.3-0.7) 06/07/21 10:50 ABG pH 7.406 (7.320-7.450) 06/04/21 04:00 POC ABG pCO2 51.5 mmHg (32.0-48.0) H 06/04/21 04:00 ABG pCO2 54.4 mm Hg 06/02/21 05:42 POC ABG pO2 61.7 mmHg (83-108) L 06/04/21 04:00 ABG pO2 141.2 mm Hg (80.0-90.0) H 06/02/21 05:42 POC ABG HCO3 31.6 06/04/21 04:00 ABG HCO3 30.6 mmol/L (20.0-26.0) H 06/02/21 05:42 ABG O2 Saturation 92.7 (0-100) 06/04/21 04:00 ABG O2 Content 16.6 (0.0-44) 06/02/21 05:42 POC ABG Base Excess 5.7 06/04/21 04:00 ABG Base Excess 4.1 mmol/L (-2.0-3.0) H 06/02/21 05:42 ABG Hemoglobin 12.7 (12.0-17.5) 06/04/21 04:00 ABG Oxyhemoglobin 90.9 (94-98) L 06/04/21 04:00 ABG Carboxyhemoglobin 1.5 % (0.0-5.0) 06/02/21 05:42 ABG Methemoglobin 0.3 (0.0-1.5) 06/04/21 04:00 ABG Sodium 137.9 mmol/L (136.0-145.0) 05/24/21 03:44 ABG Potassium 5.6 mmol/L (3.40-4.50) H 05/24/21 03:44 ABG Chloride 105.0 mmol/L (98-107) 05/24/21 03:44 ABG Glucose 53 mg/dL (65-95) L 05/24/21 03:44 Oxyhemoglobin 96.7 % (95.0-99.0) 06/02/21 05:42 Carboxyhemoglobin 1.6 (0.5-1.5) H 06/04/21 04:00 FiO2 50 % 06/02/21 05:42 FiO2 % 35.0 06/04/21 04:00 Sodium 142 mmol/L (137-145) 06/10/21 05:53 Potassium 3.9 mmol/L (3.6-5.0) 06/10/21 05:53 Chloride 106.8 mmol/L (98-107) 06/10/21 05:53 Carbon Dioxide 28 mmol/L (22-30) 06/10/21 05:53 Anion Gap 11 mmol/L 06/10/21 05:53 BUN 13 mg/dL (9-20) 06/10/21 05:53 Creatinine 0.6 mg/dL (0.8-1.3) L 06/10/21 05:53 Creatinine 0.6 mg/dL (0.8-1.3) L 06/10/21 05:53 Estimated GFR > 60 ml/min 06/10/21 05:53 Estimated GFR > 60 ml/min 06/10/21 05:53 BUN/Creatinine Ratio 22 % 06/10/21 05:53 Glucose 128 mg/dL (75-100) H 06/10/21 05:53 POC Glucose 135 mg/dL (70-105) H 06/10/21 12:16 Lactic Acid 2.10 mmol/L (0.7-2.0) H* 05/28/21 10:05 Calcium 8.9 mg/dL (8.4-10.2) 06/10/21 05:53 Phosphorus 3.90 mg/dL (2.5-4.5) D 06/10/21 05:53 Magnesium 1.80 mg/dL (1.7-2.3) 06/10/21 05:53 Total Bilirubin 2.90 mg/dL (0.1-1.2) H 06/02/21 20:00 Direct Bilirubin 2.4 mg/dL (0-0.2) H 06/02/21 07:41 Indirect Bilirubin 0.9 mg/dL 06/02/21 07:41 AST 53 units/L (5-40) H 06/02/21 20:00 ALT 30 units/L (7-56) 06/02/21 20:00 Alkaline Phosphatase 115 units/L (35-129) 06/02/21 20:00 Total Creatine Kinase 556 units/L (55-170) H 05/24/21 09:35 Troponin T < 0.010 ng/mL (0.00-0.029) 05/23/21 09:38 C-Reactive Protein 34.80 mg/dL (0.00-1.30) H 05/28/21 10:05 NT-Pro-B Natriuret Pep 6058 pg/mL (0-450) H 05/23/21 09:38 Total Protein 6.2 g/dL (6.3-8.2) L 06/02/21 20:00 Albumin 1.8 g/dL (3.9-5) L 06/02/21 20:00 Albumin/Globulin Ratio 0.4 % 06/02/21 20:00 Triglycerides 142 mg/dL (2-149) 06/07/21 Unknown Procalcitonin 0.25 ng/mL (<0.15) 06/08/21 04:42 Arterial Blood Glucose 53 mg/dL (65-95) L 05/24/21 03:44 Arterial Blood Ionized Calcium 4.6 mg/dL (4.6-5.3) 05/24/21 03:44 Urine Color Sherri (Yellow) 05/28/21 12:20 Urine Turbidity Clear (Clear) 05/28/21 12:20 Urine pH 6.0 (5.0-7.0) 05/28/21 12:20 Ur Specific [place] 1.017 (1.003-1.030) 05/28/21 12:20 Urine Protein 30 mg/dl mg/dL (Negative) 05/28/21 12:20 Urine Glucose (UA) Neg mg/dL (Negative) 05/28/21 12:20 Urine Ketones Neg mg/dL (Negative) 05/28/21 12:20 Urine Blood Mod (Negative) 05/28/21 12:20 Urine Nitrite Neg (Negative) 05/28/21 12:20 Urine Bilirubin Mod (Negative) 05/28/21 12:20 Urine Ictotest Positive (Negative) 05/28/21 12:20 Urine Urobilinogen 4.0 mg/dL (<2.0) 05/28/21 12:20 Ur Leukocyte Esterase Neg (Negative) 05/28/21 12:20 Urine WBC (Auto) 3.0 /HPF (0.0-6.0) 05/28/21 12:20 Urine RBC (Auto) 4.0 /HPF (0.0-6.0) 05/28/21 12:20 U Epithel Cells (Auto) < 1.0 /HPF (0-13.0) 05/28/21 12:20 Urine Bacteria (Auto) 1+ /HPF (Negative) 05/28/21 12:20 Urine Mucus Few /HPF 05/28/21 12:20 Urine Yeast (Budding) 1+ /HPF 05/24/21 Unknown Salicylates < 0.3 mg/dL (2.8-20.0) L 05/23/21 09:38 Urine Opiates Screen Negative 05/23/21 09:41 Urine Methadone Screen Negative 05/23/21 09:41 Acetaminophen 5.0 ug/mL (10.0-30.0) L 05/23/21 09:38 Ur Barbiturates Screen Negative 05/23/21 09:41 Ur Phencyclidine Scrn Negative 05/23/21 09:41 Ur Amphetamines Screen Positive 05/23/21 09:41 U Benzodiazepines Scrn Negative 05/23/21 09:41 Urine Cocaine Screen Negative 05/23/21 09:41 U Marijuana (THC) Screen Negative 05/23/21 09:41 Drugs of Abuse Note Disclamer 05/23/21 09:41 Coronavirus (PCR) Negative (Negative) 05/26/21 08:14 Hepatitis A IgM Ab Non-reactive (NonReactive) 05/27/21 16:00 Hep Bs Antigen Non-reactive (Negative) 05/27/21 16:00 Hep B Core IgM Ab Non-reactive (NonReactive) 05/27/21 16:00 Hepatitis C Antibody Non-reactive (NonReactive) 05/27/21 16:00 [place]/IV: Voiding Method Indwelling Catheter Active Medications - Current Medications Current Medications: Generic Name Dose Route Start Last Admin Trade Name Freq PRN Reason Stop Dose Admin Acetaminophen 650 mg 05/23/21 11:43 05/31/21 03:22 Acetaminophen 650 Mg Rect Supp [place] 650 mg Q6H PRN Administration Pain MILD(1-3)/Fever >100.5/EPSTEIN Lipase/Protease/Amylase 1 each 05/29/21 08:45 Lipase 10,500/Protease 25,000/Amylase 43,750 (Units) Dr Cap FEEDTUBE PRN PRN For Clogged Feeding Tube Apixaban 10 mg 06/07/21 15:00 06/10/21 10:28 Apixaban 5 Mg Tab PO 06/13/21 22:01 10 mg Q12HR MARK Administration Protocol Apixaban 5 mg 06/14/21 10:00 Apixaban 5 Mg Tab PO Q12HR MARK Protocol Carvedilol 6.25 mg 06/07/21 12:00 06/10/21 10:28 Carvedilol 6.25 Mg Tab FEEDTUBE 6.25 mg BID MARK Administration Dextrose 0 ml 05/31/21 10:47 Dextrose 10% *Hypoglycemia IV PRN PRN Hypoglycemia Famotidine 40 mg 06/02/21 22:00 06/09/21 21:46 Famotidine 20 Mg Tab FEEDTUBE 40 mg QHS MARK Administration Fentanyl 50 mcg 06/01/21 12:29 Fentanyl 100 Mcg/2 Ml Inj IV Q10MIN PRN ANALGESIA Furosemide 20 mg 06/07/21 12:00 06/10/21 10:28 Furosemide 20 Mg Tab FEEDTUBE 20 mg BID MARK Administration Haloperidol Lactate 5 mg 05/30/21 12:18 06/09/21 16:32 Haloperidol Lactate 5 Mg/1 Ml Inj IV 5 mg Q6H PRN Administration Agitation Hydrophilic Ointment 1 applic 06/01/21 12:30 Lip Therapy Vaseline TP Q2HR PRN Dry Lips Dexmedetomidine HCl 400 mcg/ 104 mls @ 5.307 mls/hr 05/24/21 05:00 06/10/21 11:25 Sodium Chloride IV 0.4 mcg/kg/hr TITRATE MARK 10.614 mls/hr Titration Protocol 0.2 MCG/KG/HR Fentanyl Citrate 2,000 mcg in 100 mls @ 5.103 mls/hr 06/01/21 13:00 06/08/21 11:24 Fentanyl Drip Premix IV 0 mcg/kg/hr TITR MARK 0 mls/hr Titration Protocol 1 MCG/KG/HR Lorazepam 2 mg 05/31/21 11:00 06/09/21 16:32 Lorazepam 2 Mg/Ml Vial IV 2 mg Q4H PRN Administration Agitation Multi-Ingred Cream/Lotion/Oil/Oint 1 applic 06/01/21 12:30 Mineral Oil/Petrolatum, White Ophth Oint 3.5 Gm OU Q4HR PRN Dry Eye(s) Ondansetron HCl 4 mg 05/23/21 11:43 Ondansetron 4 Mg/2 Ml Inj IV Q8H PRN Nausea And Vomiting Quetiapine Fumarate 75 mg 06/07/21 22:00 06/10/21 10:28 Quetiapine 25 Mg Tab PO 75 mg BID MARK Administration Senna/Docusate Sodium 1 tab 06/01/21 22:00 06/10/21 10:28 Sennosides/Docusate Sodium 8.6/50 Mg Tab FEEDTUBE 1 tab BID MARK Administration Simple Syrup 15 ml 05/29/21 08:45 Simple Syrup 15 Ml FEEDTUBE PRN PRN Hypoglycemia Simple Syrup 30 ml 05/29/21 08:45 Simple Syrup 15 Ml FEEDTUBE PRN PRN Hypoglycemia Sodium Bicarbonate 325 mg 05/29/21 08:45 Sodium Bicarbonate 325 Mg Tab FEEDTUBE PRN PRN For Clogged Feeding Tube Sodium Chloride 10 ml 05/23/21 22:00 06/10/21 10:29 Sodium Chloride 0.9% 10 Ml Flush Syringe IV 10 ml BID AMRK Administration Sodium Chloride 10 ml 05/23/21 11:43 Sodium Chloride 0.9% 10 Ml Flush Syringe IV PRN PRN LINE FLUSH Sodium Chloride 10 ml 05/31/21 09:50 06/01/21 12:32 Sodium Chloride 0.9% 50 Ml Ivpb IV 10 ml PRN PRN Administration FLUSH Vitamin B Complex/Folic Acid 1 each 05/30/21 10:00 06/10/21 10:28 Folbee Plus Cz (Folic Acid/Vit Bcomp&C/Cu/Znox) PO 1 each QDAY MARK Administration Nutrition/Malnutrition Assess - Dietary Evaluation Nutrition/Malnutrition Findings: Nutrition Notes Start: 05/28/21 12:16 Freq: Status: Active Protocol: Document 06/07/21 15:07 YURI (Rec: 06/07/21 15:17 YURI [id number]) Nutrition Notes Initial or Follow up Reassessment Current Diagnosis Heart Failure,Respiratory Failure Other Pertinent Diagnosis Acute encephalopathy, Overdose , Methamphetamine dependence Current Diet TF - Vital HP at 70ml/hr Labs/Tests Phos 2.3 Pertinent Medications Lasix, 15mmol KPhos x 1 dose, Vit B complex/Folic acid Height 6 ft Weight 102.058 kg [place] Body Weight (kg) 80.90 BMI 30.5 Weight Status Obese Subjective/Other Information Pt remains on vent support. Per RN, pt tolerating TF at goal rate and currently receiving 200ml water flush q4h. PEG and trach placed on 06/04. Percent of energy/protein needs met: 71% energy 91% pro Burn Absent Trauma Absent #1 Nutrition Diagnosis Inadequate oral intake Diagnosis Progress(for reassessment Continues documentation) Is patient on ventilator? Yes Is Patient Ambulatory and/or Out of Bed No REE-([facility]-confined to bed) [phone] Calculation Used for Recommendations 65-70% energy needs Additional Notes Energy needs: 0187-6096 kcal/ day Pro needs 2g/kg IBW: 162g/day Fluid needs 1ml/kcal Nutrition Intervention Nutrition Support: Continue Vital HP at 70 ml/hr. Continue 200ml water flush q4h until hypernatremia resolves; then provide 50ml water flush q4h. Kcal 1,680 Protein (gm) 147 Carbohydrates (gm) 188 Fat (gm) 39 Fluid (mL) 1,404 Fiber (gm) 0 Goal #1 TF tolerance Goal #2 TF to meet 65-70% energy and at least 75% pro needs Follow-Up By: 06/11/21 Additional Comments F/U: Vent status, Na lab/water flush
[2021-06-04] MEDS: FAMOTIDINE 20 MG TAB FEEDTUBE SCH (22:22)
[2021-06-05] MEDS: HEPARIN/ 0.45% NACL DRIP 25,000 UNIT/500 ML BAG IV SCH ×2 (02:42→17:07)
--- NOTE | 2021-06-05 03:01 | XRay Report ---
CHEST 1 VIEW 06/05/2021 2:37 AM INDICATION / CLINICAL INFORMATION: Follow-up respiratory failure. COMPARISON: Yesterday. FINDINGS: SUPPORT DEVICES: The position of the tracheostomy tube has not changed. HEART / MEDIASTINUM: Unchanged. LUNGS / PLEURA: Left retrocardiac opacity is probably unchanged. Mild patchy parenchymal disease in t he right lower lung may be slightly increased. No pneumothorax. ADDITIONAL FINDINGS: No significant additional findings. IMPRESSION: Patchy parenchymal disease in the right lung base appears more prominent. Signer Name: Bentley Kay MD Signed: 06/05/2021 2:57 AM Workstation Name: [id number]
[2021-06-05] MEDS: fentaNYL DRIP Premix 2,000 MCG/100 ML BAG IV SCH ×4 (03:03→17:05)
[2021-06-05] MEDS: FREE WATER PO SCH ×4 (05:07→22:36)
[2021-06-05] MEDS: AMPICILLIN/SULBACTA 3GM/100ML 3 GM/100 ML BAG IV SCH ×4 (05:14→23:10)
[2021-06-05 05:18] LABS: Hematocrit 34.9 % (35.5-45.6); Hemoglobin 11.3 gm/dl (11.8-15.2); Mean Corpuscular HGB Conc 32 % (32-34); Mean Corpuscular Volume 89 fl (84-94); Platelet Count 515 K/mm3 (140-440); Red Blood Count 3.93 M/mm3 (3.65-5.03)
[2021-06-05 05:33] LABS: Blood Urea Nitrogen 7 mg/dL (9-20); Calcium 8.7 mg/dL (8.4-10.2); Hemolysis Index 18
[2021-06-05 05:34] LABS: BUN/Creatinine Ratio 12
--- NOTE | 2021-06-05 08:35 | Progress Note ---
<NAUN RASHID - Last Filed: 06/05/21 12:01> Assessment and Plan Assessment and plan: This is a 40-year-old male with HFrEF, methamphetamine and nicotine dependence admitted for drug overdose and acute metabolic encephalopathy. Patient was intubated in the emergency department for airway protection. Assessment and Plan Acute toxic metabolic encephalopathy, overdose, h/o polysubstance abuse -UDS positive for amphetamines -Sedated with Precedex, propofol, versed and fentayl gtt -CTH with no acute findings -MRI Brain with no acute findings except sinusitis -added unsyn -Maintain sleep-wake cycle -Reorientation as needed -Consider mental evaluation to assess for readiness to stop polysubstance abuse Acute hypoxic respiratory failure -Intubated on 05/23 in the ED for airway protection with 7.50 ETT at 24 at the lips and extubated 05/31 -Patient reintubated on 06/01 due to tachypnea and increased work of breathing with 7.50 ETT at 24 the lips -Vent settings: AC rate 20, tidal volume 350, FiO2 40, PEEP 8 -See RT notes for titration -surgery consulted for peg/trach -Pulmonary hygiene -SPO2 monitoring Acute right upper extremity DVT -Heparin drip -Titration per protocol -Noted on right upper extremity DVT Possible Retained foreign object in right upper extremity, ruled out -Noted by division order technician -Vascular surgery consulted, appreciate recommendations -Bedside ultrasound by Dr. Angie orr who stated it appeared to be is fibrin sheath however -CT of upper extremity shows no retained object Acute kidney injury secondary to acute tubular necrosis (resolved), hyper natremia (resolved) -BUN/creatinine increased to 3.5/33 -Nephrology consulted, appreciate recommendations -Strict intake and output -Maintain Fajardo catheter -Avoid nephrotoxic medications -Renally dose medications -Trend BMP -Free water flush back to 170 q4 -Replete potassium Sepsis (POA), lactic acidosis, leukocytosis, sinusitis -Presented with febrile illness, lactic acidosis, leukocytosis now with hypotension -COVID-19 PCR negative -UA negative -Blood culture/urine culture no growth to date -Tracheal aspirate with beta-hemolytic strep group F -S/p ABX for 3 days -S/p vasopressor support -Monitor fever and WBC curve -Started on Unsyn HFrEF, cardiomegaly - Cardiology on consult, appreciated recommendations -Per cardiology -05/25/2021: Echo- EF 20 to 25%. Severe global hypokinesis of left ventricle. Left ventricle is moderately dilated. Doppler flow suggests impaired LV relaxation. Moderate mitral regurgitation. No pericardial effusion -08/04/2020: Cardiac cath- Angiographically normal coronary arteries. This is indicative of a nonischemic cardiomyopathy. Mildly elevated biventricular filling pressures with normal cardiac index -08/02/2020: Echo- EF 18%,Severe global LV hypokinesis. Normal LV diastolic function. LA mildly dilated. Moderate mitral regurgitation with an eccentric MR jet(s),No previous echocardiogram for comparison. -S/p IV Lasix -midodrine tid DVT/GI prophylaxis -Heparin gtt, PPI -SCD to bilateral lower extremities while in bed -Trend CBC -Transfuse for hemoglobin less than seven The high probability of a clinically significant, sudden or life threatening deterioration of the [multiple] system(s) required my full and direct attention, intervention and personal management. The aggregate critical care time was [60] minutes. This time is in addition to time spent performing reported procedures but includes the following: [x] Data Review and interpretation [x] Patient assessment and monitoring of vital signs [x] Documentation [x] Medication orders and management Disposition Plan: icu Total Time Spent with Patient (Minutes): 60 History Interval history: This is a 40-year-old male with methamphetamine and nicotine dependence who presented to the emergency department via EMS was called after the being found down and unresponsive by family. Per family patient "overdose on GHB." EMS administered intranasal Narcan without improvement in symptoms and transferred the patient to [facility] for further evaluation. Patient was intubated in the emergency department for airway protection. Patient was admitted to the hospital service with acute encephalopathy, hypothermia, respiratory failure with consults to [facility]. Hospital Course to date: 05/25/2021: Worsening interstitial infiltrates. unclear if this is a developing pneumonia from aspiration/volume overload. Empiric abx coverage. ECHO with bubble study ordered. Placed on iv abx. kidney function improving. 05/26/2021: Tachycardic on levo gtt, advised RN to titrate down as long as MAP > 65. HR improved on my follow up encounter. PCCM titrating vent down. Renal function improving....Cr now 1.3. No indication for [employer] at this time per nephro. 05/27/2021: Extubated yesterday however in respiratory distress, re-intubated. Patient has severe systolic heart failure. Cardiology consulted for severe systolic heart failure. Will need to discuss optimal strategy regarding diuresis. 05/28: Patient remains on the vent. Febrile overnight, no longer on IV abx, leukocytosis improved, will panculture patient for now hold off on IV Abx. D/W CCM plan to wean sedation, depends on patient's mental status possible extubation today. Patient with low EF 20 to 25%, IVF D/nickolas. [facility]WF for hypernatrenia, repeat lab in the am. 05/29- With increased agitation and tachycardia, maxed out on precedex and fentanyl gtt. Patient appears to be in withdrawal, Ativan added. Remains febrile, off pressors this am, leukocytosis improved. Continue to f/u on culture data. Hypernatremia this am, on D5w per nephro, electrolyte repleted, repeat labs in the am 05/30: Patient very aggresive this am maxed on sedation, X1 dose of Geodeon ordered. Now on low dose Levophed, patient still with low grade fevers this am. Hypotension is probably r/t sedation. Recent cultures with NGTD, UA negative. Continue to monitor for now. Na improved, IVF off this and K repleted, repeat labs in the am. 05/31: Patient was extubated today, IV fluid discontinued, given Lasix per cardiology, increasing free water flush. Weaned off Levophed. Patient noted to be lethargic several hours post Precedex infusion discontinuation. Patient extubated to BiPAP after given racemic epinephrine. Patient remains lethargic and off of BiPAP will consider CT head in the a.m. 06/01: Patient remained on BiPAP overnight, given agitation as needed Haldol/Ativan and Benadryl given while patient remained maxed on Precedex. Given increased work of breathing and tachypnea patient was electively reintubated. Free water flushes/tube feeding/p.o. medications to restart upon confirmation of DHT. Lasix stopped per cardiology recommendations. CT head ordered. 06/02: Started on midodrine 3 times daily per cardiology as patient has soft blood pressures and required Levophed overnight. Upper extremity with PICC noted to have significant swelling and possible discoloration around insertion site. Ordered RN to remove PICC and use peripheral IVs as patient does not have any medications requiring central access at this time. Hypernatremia worsened however patient did not receive multiple doses of free water flush while on continuous BiPAP. [facility] made vent changes. Surgery consulted. 06/03: Patient noted to have an acute DVT in right upper extremity and started on heparin drip. radiology technician noted possible foreign object retained and vascular surgery was consulted. Obtain CT of upper extremity. Surgery was consulted for trach/PEG. Patient remains on max doses of fentanyl, propofol and Precedex. Versed added. Started on Unasyn. MRI brain ordered. 06/04: Patient received a trach/PEG today, remains on propofol, Versed, fentanyl. Heparin drip off and tube feeding off for surgery. 06/05: Tracheal aspirate grew Enterobacter which is sensitive to ampicillin which the patient was still on. Slight hypokalemia noted reduce repleted. Patient remains on Precedex, propofol and Versed for sedation. Bilateral soft restraints in place. [facility] will hold off weaning trials as patient is still not adequate sedated. Heparin drip resumed. Hospitalist Physical - Physical exam Narrative exam: General appearance: Present: mild distress, obese, other (Intubated and sedated) - EENT Eyes: Present: PERRL, EOM intact ENT: clear oral mucosa - Neck Neck: Present: normal ROM - Respiratory Respiratory effort: normal Respiratory: bilateral: diminished - Cardiovascular Rhythm: regular Heart Sounds: Present: S1 & S2. Absent: systolic murmur, diastolic murmur - Extremities Extremities: no ischemia, pulses intact, pulses symmetrical, No edema, normal temperature, normal color Peripheral Pulses: within normal limits - Abdominal General gastrointestinal: soft, non-tender, non-distended, normal bowel sounds - Integumentary Integumentary: Present: clear, warm, dry - Psychiatric Psychiatric: cooperative - Neurologic Neurologic: CNII-XII intact, focal deficits - Allied Health Allied health notes reviewed: nursing, RT, social work - Constitutional Vitals: Temp Pulse Resp BP Pulse Ox 97.7 F 122 H 16 152/86 98 06/05/21 03:56 06/05/21 08:15 06/05/21 08:15 06/05/21 08:15 06/05/21 08:15 General appearance: Present: mild distress, obese, other (Intubated and sedated) HEART Score - HEART Score Troponin: Troponin T < 0.010 ng/mL (0.00-0.029) 05/23/21 09:38 Results - Labs CBC & Chem 7: 06/05/21 04:00 06/05/21 04:00 Labs: Laboratory Last Values WBC 10.8 K/mm3 (4.5-11.0) 06/05/21 04:00 RBC 3.93 M/mm3 (3.65-5.03) 06/05/21 04:00 Hgb 11.3 gm/dl (11.8-15.2) L 06/05/21 04:00 Hct 34.9 % (35.5-45.6) L 06/05/21 04:00 MCV 89 fl (84-94) 06/05/21 04:00 MCH 29 pg (28-32) 06/05/21 04:00 MCHC 32 % (32-34) 06/05/21 04:00 RDW 16.0 % (13.2-15.2) H 06/05/21 04:00 Plt Count 515 K/mm3 (140-440) H 06/05/21 04:00 Lymph % (Auto) 11.2 % (13.4-35.0) L 05/28/21 10:05 [place] % (Auto) 8.6 % (0.0-7.3) H 05/28/21 10:05 Eos % (Auto) 0.8 % (0.0-4.3) 05/28/21 10:05 Baso % (Auto) 0.5 % (0.0-1.8) 05/28/21 10:05 Lymph # (Auto) 1.3 K/mm3 (1.2-5.4) 05/28/21 10:05 [place] # (Auto) 1.0 K/mm3 (0.0-0.8) H 05/28/21 10:05 Eos # (Auto) 0.1 K/mm3 (0.0-0.4) 05/28/21 10:05 Baso # (Auto) 0.1 K/mm3 (0.0-0.1) 05/28/21 10:05 Add Manual Diff Complete 05/27/21 03:18 Total Counted 100 05/27/21 03:18 Seg Neutrophils % 78.9 % (40.0-70.0) H 05/28/21 10:05 Seg Neuts % (Manual) 92.0 % (40.0-70.0) H 05/27/21 03:18 Band Neutrophils % 0 % 05/27/21 03:18 Lymphocytes % (Manual) 5.0 % (13.4-35.0) L 05/27/21 03:18 Reactive Lymphs % (Man) 0 % 05/27/21 03:18 Monocytes % (Manual) 3.0 % (0.0-7.3) 05/27/21 03:18 Eosinophils % (Manual) 0 % (0.0-4.3) 05/27/21 03:18 Basophils % (Manual) 0 % (0.0-1.8) 05/27/21 03:18 Metamyelocytes % 0 % 05/27/21 03:18 Myelocytes % 0 % 05/27/21 03:18 Promyelocytes % 0 % 05/27/21 03:18 Blast Cells % 0 % 05/27/21 03:18 Nucleated RBC % Not Reportable 05/27/21 03:18 Seg Neutrophils # 9.0 K/mm3 (1.8-7.7) H 05/28/21 10:05 Seg Neutrophils # Man 19.8 K/mm3 (1.8-7.7) H 05/27/21 03:18 Band Neutrophils # 0.0 K/mm3 05/27/21 03:18 Lymphocytes # (Manual) 1.1 K/mm3 (1.2-5.4) L 05/27/21 03:18 Abs React Lymphs (Man) 0.0 K/mm3 05/27/21 03:18 Monocytes # (Manual) 0.6 K/mm3 (0.0-0.8) 05/27/21 03:18 Eosinophils # (Manual) 0.0 K/mm3 (0.0-0.4) 05/27/21 03:18 Basophils # (Manual) 0.0 K/mm3 (0.0-0.1) 05/27/21 03:18 Metamyelocytes # 0.0 K/mm3 05/27/21 03:18 Myelocytes # 0.0 K/mm3 05/27/21 03:18 Promyelocytes # 0.0 K/mm3 05/27/21 03:18 Blast Cells # 0.0 K/mm3 05/27/21 03:18 WBC Morphology Not Reportable 05/27/21 03:18 Hypersegmented Neuts Not Reportable 05/27/21 03:18 Hyposegmented Neuts Not Reportable 05/27/21 03:18 Hypogranular Neuts Not Reportable 05/27/21 03:18 Smudge Cells Not Reportable 05/27/21 03:18 Toxic Granulation Not Reportable 05/27/21 03:18 Toxic Vacuolation Not Reportable 05/27/21 03:18 Dohle Bodies Not Reportable 05/27/21 03:18 Pelger-Huet Anomaly Not Reportable 05/27/21 03:18 Glenn Rods Not Reportable 05/27/21 03:18 Platelet Estimate Consistent w auto 05/27/21 03:18 Clumped Platelets Not Reportable 05/27/21 03:18 Plt Clumps, EDTA Not Reportable 05/27/21 03:18 Large Platelets Not Reportable 05/27/21 03:18 Giant Platelets Not Reportable 05/27/21 03:18 Platelet Satelliting Not Reportable 05/27/21 03:18 Plt Morphology Comment Not Reportable 05/27/21 03:18 RBC Morphology Normal 05/27/21 03:18 Dimorphic RBCs Not Reportable 05/27/21 03:18 Polychromasia Not Reportable 05/27/21 03:18 Hypochromasia Not Reportable 05/27/21 03:18 Poikilocytosis Not Reportable 05/27/21 03:18 Anisocytosis Not Reportable 05/27/21 03:18 Microcytosis Not Reportable 05/27/21 03:18 Macrocytosis Not Reportable 05/27/21 03:18 Spherocytes Not Reportable 05/27/21 03:18 Pappenheimer Bodies Not Reportable 05/27/21 03:18 Sickle Cells Not Reportable 05/27/21 03:18 Target Cells Not Reportable 05/27/21 03:18 Tear Drop Cells Not Reportable 05/27/21 03:18 Ovalocytes Not Reportable 05/27/21 03:18 Helmet Cells Not Reportable 05/27/21 03:18 Maravilla-Enola Bodies Not Reportable 05/27/21 03:18 Birchleaf Rings Not Reportable 05/27/21 03:18 Morris Cells Not Reportable 05/27/21 03:18 Bite Cells Not Reportable 05/27/21 03:18 Crenated Cell Not Reportable 05/27/21 03:18 Elliptocytes Not Reportable 05/27/21 03:18 Acanthocytes (Spur) Not Reportable 05/27/21 03:18 Rouleaux Not Reportable 05/27/21 03:18 Hemoglobin C Crystals Not Reportable 05/27/21 03:18 Schistocytes Not Reportable 05/27/21 03:18 Malaria parasites Not Reportable 05/27/21 03:18 Frandy Bodies Not Reportable 05/27/21 03:18 Hem Pathologist Commnt No 05/27/21 03:18 PT 15.8 Sec. (12.2-14.9) H 06/04/21 04:10 INR 1.14 (0.87-1.13) H 06/04/21 04:10 APTT 36.1 Sec. (24.2-36.6) 06/03/21 Unknown Heparin Anti-Xa Level < 0.10 U.I./ml (0.3-0.7) L 06/05/21 04:00 ABG pH 7.406 (7.320-7.450) 06/04/21 04:00 POC ABG pCO2 51.5 mmHg (32.0-48.0) H 06/04/21 04:00 ABG pCO2 54.4 mm Hg 06/02/21 05:42 POC ABG pO2 61.7 mmHg (83-108) L 06/04/21 04:00 ABG pO2 141.2 mm Hg (80.0-90.0) H 06/02/21 05:42 POC ABG HCO3 31.6 06/04/21 04:00 ABG HCO3 30.6 mmol/L (20.0-26.0) H 06/02/21 05:42 ABG O2 Saturation 92.7 (0-100) 06/04/21 04:00 ABG O2 Content 16.6 (0.0-44) 06/02/21 05:42 POC ABG Base Excess 5.7 06/04/21 04:00 ABG Base Excess 4.1 mmol/L (-2.0-3.0) H 06/02/21 05:42 ABG Hemoglobin 12.7 (12.0-17.5) 06/04/21 04:00 ABG Oxyhemoglobin 90.9 (94-98) L 06/04/21 04:00 ABG Carboxyhemoglobin 1.5 % (0.0-5.0) 06/02/21 05:42 ABG Methemoglobin 0.3 (0.0-1.5) 06/04/21 04:00 ABG Sodium 137.9 mmol/L (136.0-145.0) 05/24/21 03:44 ABG Potassium 5.6 mmol/L (3.40-4.50) H 05/24/21 03:44 ABG Chloride 105.0 mmol/L (98-107) 05/24/21 03:44 ABG Glucose 53 mg/dL (65-95) L 05/24/21 03:44 Oxyhemoglobin 96.7 % (95.0-99.0) 06/02/21 05:42 Carboxyhemoglobin 1.6 (0.5-1.5) H 06/04/21 04:00 FiO2 50 % 06/02/21 05:42 FiO2 % 35.0 06/04/21 04:00 Sodium 142 mmol/L (137-145) 06/05/21 04:00 Potassium 3.5 mmol/L (3.6-5.0) L 06/05/21 04:00 Chloride 106.1 mmol/L (98-107) 06/05/21 04:00 Carbon Dioxide 25 mmol/L (22-30) 06/05/21 04:00 Anion Gap 14 mmol/L 06/05/21 04:00 BUN 7 mg/dL (9-20) L 06/05/21 04:00 Creatinine 0.6 mg/dL (0.8-1.3) L 06/05/21 04:00 Estimated GFR > 60 ml/min 06/05/21 04:00 BUN/Creatinine Ratio 12 % 06/05/21 04:00 Glucose 131 mg/dL (75-100) H 06/05/21 04:00 POC Glucose 123 mg/dL (70-105) H 06/05/21 05:32 Lactic Acid 2.10 mmol/L (0.7-2.0) H* 05/28/21 10:05 Calcium 8.7 mg/dL (8.4-10.2) 06/05/21 04:00 Phosphorus 3.00 mg/dL (2.5-4.5) 06/02/21 07:41 Magnesium 1.70 mg/dL (1.7-2.3) 06/02/21 07:41 Total Bilirubin 2.90 mg/dL (0.1-1.2) H 06/02/21 20:00 Direct Bilirubin 2.4 mg/dL (0-0.2) H 06/02/21 07:41 Indirect Bilirubin 0.9 mg/dL 06/02/21 07:41 AST 53 units/L (5-40) H 06/02/21 20:00 ALT 30 units/L (7-56) 06/02/21 20:00 Alkaline Phosphatase 115 units/L (35-129) 06/02/21 20:00 Total Creatine Kinase 556 units/L (55-170) H 05/24/21 09:35 Troponin T < 0.010 ng/mL (0.00-0.029) 05/23/21 09:38 C-Reactive Protein 34.80 mg/dL (0.00-1.30) H 05/28/21 10:05 NT-Pro-B Natriuret Pep 6058 pg/mL (0-450) H 05/23/21 09:38 Total Protein 6.2 g/dL (6.3-8.2) L 06/02/21 20:00 Albumin 1.8 g/dL (3.9-5) L 06/02/21 20:00 Albumin/Globulin Ratio 0.4 % 06/02/21 20:00 Triglycerides 161 mg/dL (2-149) H 06/04/21 04:10 Procalcitonin 12.51 ng/mL (<0.15) 05/28/21 10:05 Arterial Blood Glucose 53 mg/dL (65-95) L 05/24/21 03:44 Arterial Blood Ionized Calcium 4.6 mg/dL (4.6-5.3) 05/24/21 03:44 Urine Color Sherri (Yellow) 05/28/21 12:20 Urine Turbidity Clear (Clear) 05/28/21 12:20 Urine pH 6.0 (5.0-7.0) 05/28/21 12:20 Ur Specific [place] 1.017 (1.003-1.030) 05/28/21 12:20 Urine Protein 30 mg/dl mg/dL (Negative) 05/28/21 12:20 Urine Glucose (UA) Neg mg/dL (Negative) 05/28/21 12:20 Urine Ketones Neg mg/dL (Negative) 05/28/21 12:20 Urine Blood Mod (Negative) 05/28/21 12:20 Urine Nitrite Neg (Negative) 05/28/21 12:20 Urine Bilirubin Mod (Negative) 05/28/21 12:20 Urine Ictotest Positive (Negative) 05/28/21 12:20 Urine Urobilinogen 4.0 mg/dL (<2.0) 05/28/21 12:20 Ur Leukocyte Esterase Neg (Negative) 05/28/21 12:20 Urine WBC (Auto) 3.0 /HPF (0.0-6.0) 05/28/21 12:20 Urine RBC (Auto) 4.0 /HPF (0.0-6.0) 05/28/21 12:20 U Epithel Cells (Auto) < 1.0 /HPF (0-13.0) 05/28/21 12:20 Urine Bacteria (Auto) 1+ /HPF (Negative) 05/28/21 12:20 Urine Mucus Few /HPF 05/28/21 12:20 Urine Yeast (Budding) 1+ /HPF 05/24/21 Unknown Salicylates < 0.3 mg/dL (2.8-20.0) L 05/23/21 09:38 Urine Opiates Screen Negative 05/23/21 09:41 Urine Methadone Screen Negative 05/23/21 09:41 Acetaminophen 5.0 ug/mL (10.0-30.0) L 05/23/21 09:38 Ur Barbiturates Screen Negative 05/23/21 09:41 Ur Phencyclidine Scrn Negative 05/23/21 09:41 Ur Amphetamines Screen Positive 05/23/21 09:41 U Benzodiazepines Scrn Negative 05/23/21 09:41 Urine Cocaine Screen Negative 05/23/21 09:41 U Marijuana (THC) Screen Negative 05/23/21 09:41 Drugs of Abuse Note Disclamer 05/23/21 09:41 Coronavirus (PCR) Negative (Negative) 05/26/21 08:14 Hepatitis A IgM Ab Non-reactive (NonReactive) 05/27/21 16:00 Hep Bs Antigen Non-reactive (Negative) 05/27/21 16:00 Hep B Core IgM Ab Non-reactive (NonReactive) 05/27/21 16:00 Hepatitis C Antibody Non-reactive (NonReactive) 05/27/21 16:00 Fajardo/IV: Voiding Method Indwelling Catheter Active Medications - Current Medications Current Medications: Generic Name Dose Route Start Last Admin Trade Name Freq PRN Reason Stop Dose Admin Acetaminophen 650 mg 05/23/21 11:43 05/31/21 03:22 Acetaminophen 650 Mg Rect Supp MA 650 mg Q6H PRN Administration Pain MILD(1-3)/Fever >100.5/EPSTEIN Lipase/Protease/Amylase 1 each 05/29/21 08:45 Lipase 10,500/Protease 25,000/Amylase 43,750 (Units) Dr Cap FEEDTUBE PRN PRN For Clogged Feeding Tube Dextrose 0 ml 05/31/21 10:47 Dextrose 10% *Hypoglycemia IV PRN PRN Hypoglycemia Famotidine 40 mg 06/02/21 22:00 06/04/21 22:22 Famotidine 20 Mg Tab FEEDTUBE 40 mg QHS MARK Administration Fentanyl 50 mcg 06/01/21 12:29 Fentanyl 100 Mcg/2 Ml Inj IV Q10MIN PRN ANALGESIA Haloperidol Lactate 5 mg 05/30/21 12:18 06/01/21 09:27 Haloperidol Lactate 5 Mg/1 Ml Inj IV 5 mg Q6H PRN Administration Agitation Heparin Sodium (Porcine) 4,100 unit 06/03/21 15:02 Heparin 10,000 Units/10 Ml Vial 40 unit/kg (4100 unit) IV Q6H PRN Anti-Xa Assay < 0.1 units/ml Hydrophilic Ointment 1 applic 06/01/21 12:30 Lip Therapy Vaseline TP Q2HR PRN Dry Lips Dexmedetomidine HCl 400 mcg/ 104 mls @ 5.307 mls/hr 05/24/21 05:00 06/05/21 08:20 Sodium Chloride IV 1.4 mcg/kg/hr TITRATE MARK 37.149 mls/hr Administration Protocol 0.2 MCG/KG/HR Fentanyl Citrate 2,000 mcg in 100 mls @ 5.103 mls/hr 06/01/21 13:00 06/05/21 07:01 Fentanyl Drip Premix IV 4 mcg/kg/hr TITR MARK 20.412 mls/hr Administration Protocol 1 MCG/KG/HR Propofol 1,000 mg in 100 mls @ 3.062 mls/hr 06/01/21 12:10 06/05/21 08:22 Diprivan 10 Mg/Ml IV 40 mcg/kg/min TITR MARK 24.494 mls/hr Administration Protocol 5 MCG/KG/MIN Ampicillin Sodium/Sulbactam Sodium 3 gm in 100 mls @ 200 mls/hr 06/03/21 11:00 06/05/21 05:14 Unasyn/Ns 3 Gm/100 Ml IV 06/10/21 05:29 200 mls/hr Q6H MARK Administration Protocol Midazolam HCl 100 mg/ Sodium 100 mls @ 1 mls/hr 06/03/21 11:00 06/05/21 08:23 Chloride IV 2 mg/hr TITR MARK 2 mls/hr Titration Protocol 1 MG/HR Heparin Sodium/Sodium Chloride 25,000 unit in 500 mls @ 30 mls/hr 06/03/21 16:00 06/05/21 05:38 Heparin/ 0.45% Nacl-25,000 Unit/500 Ml IV 1,700 units/hr TITR MARK 34 mls/hr Titration Protocol 1,500 UNITS/HR Lorazepam 2 mg 05/31/21 11:00 06/03/21 09:20 Lorazepam 2 Mg/Ml Vial IV 2 mg Q4H PRN Administration Agitation Midazolam HCl 2 mg 06/03/21 10:06 Midazolam 2 Mg/2 Ml Inj IV Q10MIN PRN Sedation Midodrine 5 mg 06/02/21 12:00 06/04/21 17:12 Midodrine 5 Mg Tab PO 5 mg TID@0800,1200,1600 [facility] Administration Multi-Ingred Cream/Lotion/Oil/Oint 1 applic 06/01/21 12:30 Mineral Oil/Petrolatum, White Ophth Oint 3.5 Gm OU Q4HR PRN Dry Eye(s) Ondansetron HCl 4 mg 05/23/21 11:43 Ondansetron 4 Mg/2 Ml Inj IV Q8H PRN Nausea And Vomiting Senna/Docusate Sodium 1 tab 06/01/21 22:00 06/04/21 22:00 Sennosides/Docusate Sodium 8.6/50 Mg Tab FEEDTUBE Not Given BID MARK Simple Syrup 15 ml 05/29/21 08:45 Simple Syrup 15 Ml FEEDTUBE PRN PRN Hypoglycemia Simple Syrup 30 ml 05/29/21 08:45 Simple Syrup 15 Ml FEEDTUBE PRN PRN Hypoglycemia Sodium Bicarbonate 325 mg 05/29/21 08:45 Sodium Bicarbonate 325 Mg Tab FEEDTUBE PRN PRN For Clogged Feeding Tube Sodium Chloride 10 ml 05/23/21 22:00 06/04/21 22:28 Sodium Chloride 0.9% 10 Ml Flush Syringe IV 10 ml BID MARK Administration Sodium Chloride 10 ml 05/23/21 11:43 Sodium Chloride 0.9% 10 Ml Flush Syringe IV PRN PRN LINE FLUSH Sodium Chloride 10 ml 05/31/21 09:50 06/01/21 12:32 Sodium Chloride 0.9% 50 Ml Ivpb IV 10 ml PRN PRN Administration FLUSH Vitamin B Complex/Folic Acid 1 each 05/30/21 10:00 06/04/21 09:35 Folbee Plus Cz (Folic Acid/Vit Bcomp&C/Cu/Znox) PO 1 each QDAY MARK Administration Nutrition/Malnutrition Assess - Dietary Evaluation Nutrition/Malnutrition Findings: Nutrition Notes Start: 05/28/21 12:16 Freq: Status: Active Protocol: Document 05/31/21 15:28 GREGG (Rec: 05/31/21 15:51 GREGG [id number]) Nutrition Notes Initial or Follow up Brief Note Current Diet TF-Vital HP @ 70 ml/hr (since D 05/31). Height 6 ft Weight 102.058 kg [place] Body Weight (kg) 80.90 BMI 30.5 Weight change and time frame No body weight change in 2 days reported. Subjective/Other Information RD consult for routine F/u on TF tolerance. Pt extubated from mechanical ventilation, now on Bi-PaP+ tolerating well. TF continues as prescribed. Percent of energy/protein needs met: Prescribed Vital HP @ 70 ml/hr provides for energy/protein needs (1,655 Kcal/145 g) during LOS, 70% Kcal; 89% AA. #1 Nutrition Diagnosis Inadequate oral intake Diagnosis Progress(for reassessment Continues documentation) Is patient on ventilator? Yes Is Patient Ambulatory and/or Out of Bed No REE-([facility]-confined to bed) 1224.912 Calculation Used for Recommendations 65-70% energy needs Additional Notes Energy needs: 2140-3390 kcal/ day Pro needs 2g/kg IBW: 162g/day Fluid needs 1ml/kcal Nutrition Intervention Nutrition Support: Continue Vital HP @ 70 ml/hr. Flush: 170 ml water Q 4 hr, or as per MD. Kcal 1,655 Protein (gm) 145 Carbohydrates (gm) 185 Fat (gm) 38 Fluid (mL) 1,384 Fiber (gm) 0 % RDI: 70% Kcal; 89% AA. Goal #1 Provide at least 75% of energy /protein needs through Enteral Feeding during LOS. Goal #2 Maintain body weight within +/ -3% of admission body weight during LOS. Follow-Up By: 06/07/21 Additional Comments Continue monitoring TF tolerance and BM. <MAVIS CARVALHO - Last Filed: 06/10/21 13:13> Assessment and Plan Assessment and plan: I saw and evaluated the patient. Discussed with the nurse practitioner and agree with their findings and plan as documented in this note. Hospitalist Physical - Constitutional Vitals: Temp Pulse Resp BP Pulse Ox 99.9 F H 90 26 H 112/62 99 06/10/21 12:00 06/10/21 12:48 06/10/21 12:00 06/10/21 12:48 06/10/21 12:48 HEART Score - HEART Score Troponin: Troponin T < 0.010 ng/mL (0.00-0.029) 05/23/21 09:38 Results - Labs CBC & Chem 7: 06/10/21 05:53 06/10/21 05:53 Labs: Laboratory Last Values WBC 10.8 K/mm3 (4.5-11.0) 06/10/21 05:53 RBC 3.68 M/mm3 (3.65-5.03) 06/10/21 05:53 Hgb 10.3 gm/dl (11.8-15.2) L 06/10/21 05:53 Hct 31.7 % (35.5-45.6) L 06/10/21 05:53 MCV 86 fl (84-94) 06/10/21 05:53 MCH 28 pg (28-32) 06/10/21 05:53 MCHC 32 % (32-34) 06/10/21 05:53 RDW 16.5 % (13.2-15.2) H 06/10/21 05:53 Plt Count 527 K/mm3 (140-440) H 06/10/21 05:53 Lymph % (Auto) 11.2 % (13.4-35.0) L 05/28/21 10:05 [place] % (Auto) 8.6 % (0.0-7.3) H 05/28/21 10:05 Eos % (Auto) 0.8 % (0.0-4.3) 05/28/21 10:05 Baso % (Auto) 0.5 % (0.0-1.8) 05/28/21 10:05 Lymph # (Auto) 1.3 K/mm3 (1.2-5.4) 05/28/21 10:05 [place] # (Auto) 1.0 K/mm3 (0.0-0.8) H 05/28/21 10:05 Eos # (Auto) 0.1 K/mm3 (0.0-0.4) 05/28/21 10:05 Baso # (Auto) 0.1 K/mm3 (0.0-0.1) 05/28/21 10:05 Add Manual Diff Complete 05/27/21 03:18 Total Counted 100 05/27/21 03:18 Seg Neutrophils % 78.9 % (40.0-70.0) H 05/28/21 10:05 Seg Neuts % (Manual) 92.0 % (40.0-70.0) H 05/27/21 03:18 Band Neutrophils % 0 % 05/27/21 03:18 Lymphocytes % (Manual) 5.0 % (13.4-35.0) L 05/27/21 03:18 Reactive Lymphs % (Man) 0 % 05/27/21 03:18 Monocytes % (Manual) 3.0 % (0.0-7.3) 05/27/21 03:18 Eosinophils % (Manual) 0 % (0.0-4.3) 05/27/21 03:18 Basophils % (Manual) 0 % (0.0-1.8) 05/27/21 03:18 Metamyelocytes % 0 % 05/27/21 03:18 Myelocytes % 0 % 05/27/21 03:18 Promyelocytes % 0 % 05/27/21 03:18 Blast Cells % 0 % 05/27/21 03:18 Nucleated RBC % Not Reportable 05/27/21 03:18 Seg Neutrophils # 9.0 K/mm3 (1.8-7.7) H 05/28/21 10:05 Seg Neutrophils # Man 19.8 K/mm3 (1.8-7.7) H 05/27/21 03:18 Band Neutrophils # 0.0 K/mm3 05/27/21 03:18 Lymphocytes # (Manual) 1.1 K/mm3 (1.2-5.4) L 05/27/21 03:18 Abs React Lymphs (Man) 0.0 K/mm3 05/27/21 03:18 Monocytes # (Manual) 0.6 K/mm3 (0.0-0.8) 05/27/21 03:18 Eosinophils # (Manual) 0.0 K/mm3 (0.0-0.4) 05/27/21 03:18 Basophils # (Manual) 0.0 K/mm3 (0.0-0.1) 05/27/21 03:18 Metamyelocytes # 0.0 K/mm3 05/27/21 03:18 Myelocytes # 0.0 K/mm3 05/27/21 03:18 Promyelocytes # 0.0 K/mm3 05/27/21 03:18 Blast Cells # 0.0 K/mm3 05/27/21 03:18 WBC Morphology Not Reportable 05/27/21 03:18 Hypersegmented Neuts Not Reportable 05/27/21 03:18 Hyposegmented Neuts Not Reportable 05/27/21 03:18 Hypogranular Neuts Not Reportable 05/27/21 03:18 Smudge Cells Not Reportable 05/27/21 03:18 Toxic Granulation Not Reportable 05/27/21 03:18 Toxic Vacuolation Not Reportable 05/27/21 03:18 Dohle Bodies Not Reportable 05/27/21 03:18 Pelger-Huet Anomaly Not Reportable 05/27/21 03:18 Glenn Rods Not Reportable 05/27/21 03:18 Platelet Estimate Consistent w auto 05/27/21 03:18 Clumped Platelets Not Reportable 05/27/21 03:18 Plt Clumps, EDTA Not Reportable 05/27/21 03:18 Large Platelets Not Reportable 05/27/21 03:18 Giant Platelets Not Reportable 05/27/21 03:18 Platelet Satelliting Not Reportable 05/27/21 03:18 Plt Morphology Comment Not Reportable 05/27/21 03:18 RBC Morphology Normal 05/27/21 03:18 Dimorphic RBCs Not Reportable 05/27/21 03:18 Polychromasia Not Reportable 05/27/21 03:18 Hypochromasia Not Reportable 05/27/21 03:18 Poikilocytosis Not Reportable 05/27/21 03:18 Anisocytosis Not Reportable 05/27/21 03:18 Microcytosis Not Reportable 05/27/21 03:18 Macrocytosis Not Reportable 05/27/21 03:18 Spherocytes Not Reportable 05/27/21 03:18 Pappenheimer Bodies Not Reportable 05/27/21 03:18 Sickle Cells Not Reportable 05/27/21 03:18 Target Cells Not Reportable 05/27/21 03:18 Tear Drop Cells Not Reportable 05/27/21 03:18 Ovalocytes Not Reportable 05/27/21 03:18 Helmet Cells Not Reportable 05/27/21 03:18 Maravilla-Enola Bodies Not Reportable 05/27/21 03:18 [place]ch[place] Rings Not Reportable 05/27/21 03:18 Morris Cells Not Reportable 05/27/21 03:18 Bite Cells Not Reportable 05/27/21 03:18 Crenated Cell Not Reportable 05/27/21 03:18 Elliptocytes Not Reportable 05/27/21 03:18 Acanthocytes (Spur) Not Reportable 05/27/21 03:18 Rouleaux Not Reportable 05/27/21 03:18 Hemoglobin C Crystals Not Reportable 05/27/21 03:18 Schistocytes Not Reportable 05/27/21 03:18 Malaria parasites Not Reportable 05/27/21 03:18 Frandy Bodies Not Reportable 05/27/21 03:18 Hem Pathologist Commnt No 05/27/21 03:18 PT 14.2 Sec. (12.2-14.9) 06/07/21 10:50 INR 0.99 (0.87-1.13) 06/07/21 10:50 APTT 36.1 Sec. (24.2-36.6) 06/03/21 Unknown Heparin Anti-Xa Level 0.34 U.I./ml (0.3-0.7) 06/07/21 10:50 ABG pH 7.406 (7.320-7.450) 06/04/21 04:00 POC ABG pCO2 51.5 mmHg (32.0-48.0) H 06/04/21 04:00 ABG pCO2 54.4 mm Hg 06/02/21 05:42 POC ABG pO2 61.7 mmHg (83-108) L 06/04/21 04:00 ABG pO2 141.2 mm Hg (80.0-90.0) H 06/02/21 05:42 POC ABG HCO3 31.6 06/04/21 04:00 ABG HCO3 30.6 mmol/L (20.0-26.0) H 06/02/21 05:42 ABG O2 Saturation 92.7 (0-100) 06/04/21 04:00 ABG O2 Content 16.6 (0.0-44) 06/02/21 05:42 POC ABG Base Excess 5.7 06/04/21 04:00 ABG Base Excess 4.1 mmol/L (-2.0-3.0) H 06/02/21 05:42 ABG Hemoglobin 12.7 (12.0-17.5) 06/04/21 04:00 ABG Oxyhemoglobin 90.9 (94-98) L 06/04/21 04:00 ABG Carboxyhemoglobin 1.5 % (0.0-5.0) 06/02/21 05:42 ABG Methemoglobin 0.3 (0.0-1.5) 06/04/21 04:00 ABG Sodium 137.9 mmol/L (136.0-145.0) 05/24/21 03:44 ABG Potassium 5.6 mmol/L (3.40-4.50) H 05/24/21 03:44 ABG Chloride 105.0 mmol/L (98-107) 05/24/21 03:44 ABG Glucose 53 mg/dL (65-95) L 05/24/21 03:44 Oxyhemoglobin 96.7 % (95.0-99.0) 06/02/21 05:42 Carboxyhemoglobin 1.6 (0.5-1.5) H 06/04/21 04:00 FiO2 50 % 06/02/21 05:42 FiO2 % 35.0 06/04/21 04:00 Sodium 142 mmol/L (137-145) 06/10/21 05:53 Potassium 3.9 mmol/L (3.6-5.0) 06/10/21 05:53 Chloride 106.8 mmol/L (98-107) 06/10/21 05:53 Carbon Dioxide 28 mmol/L (22-30) 06/10/21 05:53 Anion Gap 11 mmol/L 06/10/21 05:53 BUN 13 mg/dL (9-20) 06/10/21 05:53 Creatinine 0.6 mg/dL (0.8-1.3) L 06/10/21 05:53 Creatinine 0.6 mg/dL (0.8-1.3) L 06/10/21 05:53 Estimated GFR > 60 ml/min 06/10/21 05:53 Estimated GFR > 60 ml/min 06/10/21 05:53 BUN/Creatinine Ratio 22 % 06/10/21 05:53 Glucose 128 mg/dL (75-100) H 06/10/21 05:53 POC Glucose 135 mg/dL (70-105) H 06/10/21 12:16 Lactic Acid 2.10 mmol/L (0.7-2.0) H* 05/28/21 10:05 Calcium 8.9 mg/dL (8.4-10.2) 06/10/21 05:53 Phosphorus 3.90 mg/dL (2.5-4.5) D 06/10/21 05:53 Magnesium 1.80 mg/dL (1.7-2.3) 06/10/21 05:53 Total Bilirubin 2.90 mg/dL (0.1-1.2) H 06/02/21 20:00 Direct Bilirubin 2.4 mg/dL (0-0.2) H 06/02/21 07:41 Indirect Bilirubin 0.9 mg/dL 06/02/21 07:41 AST 53 units/L (5-40) H 06/02/21 20:00 ALT 30 units/L (7-56) 06/02/21 20:00 Alkaline Phosphatase 115 units/L (35-129) 06/02/21 20:00 Total Creatine Kinase 556 units/L (55-170) H 05/24/21 09:35 Troponin T < 0.010 ng/mL (0.00-0.029) 05/23/21 09:38 C-Reactive Protein 34.80 mg/dL (0.00-1.30) H 05/28/21 10:05 NT-Pro-B Natriuret Pep 6058 pg/mL (0-450) H 05/23/21 09:38 Total Protein 6.2 g/dL (6.3-8.2) L 06/02/21 20:00 Albumin 1.8 g/dL (3.9-5) L 06/02/21 20:00 Albumin/Globulin Ratio 0.4 % 06/02/21 20:00 Triglycerides 142 mg/dL (2-149) 06/07/21 Unknown Procalcitonin 0.25 ng/mL (<0.15) 06/08/21 04:42 Arterial Blood Glucose 53 mg/dL (65-95) L 05/24/21 03:44 Arterial Blood Ionized Calcium 4.6 mg/dL (4.6-5.3) 05/24/21 03:44 Urine Color Sherri (Yellow) 05/28/21 12:20 Urine Turbidity Clear (Clear) 05/28/21 12:20 Urine pH 6.0 (5.0-7.0) 05/28/21 12:20 Ur Specific [place] 1.017 (1.003-1.030) 05/28/21 12:20 Urine Protein 30 mg/dl mg/dL (Negative) 05/28/21 12:20 Urine Glucose (UA) Neg mg/dL (Negative) 05/28/21 12:20 Urine Ketones Neg mg/dL (Negative) 05/28/21 12:20 Urine Blood Mod (Negative) 05/28/21 12:20 Urine Nitrite Neg (Negative) 05/28/21 12:20 Urine Bilirubin Mod (Negative) 05/28/21 12:20 Urine Ictotest Positive (Negative) 05/28/21 12:20 Urine Urobilinogen 4.0 mg/dL (<2.0) 05/28/21 12:20 Ur Leukocyte Esterase Neg (Negative) 05/28/21 12:20 Urine WBC (Auto) 3.0 /HPF (0.0-6.0) 05/28/21 12:20 Urine RBC (Auto) 4.0 /HPF (0.0-6.0) 05/28/21 12:20 U Epithel Cells (Auto) < 1.0 /HPF (0-13.0) 05/28/21 12:20 Urine Bacteria (Auto) 1+ /HPF (Negative) 05/28/21 12:20 Urine Mucus Few /HPF 05/28/21 12:20 Urine Yeast (Budding) 1+ /HPF 05/24/21 Unknown Salicylates < 0.3 mg/dL (2.8-20.0) L 05/23/21 09:38 Urine Opiates Screen Negative 05/23/21 09:41 Urine Methadone Screen Negative 05/23/21 09:41 Acetaminophen 5.0 ug/mL (10.0-30.0) L 05/23/21 09:38 Ur Barbiturates Screen Negative 05/23/21 09:41 Ur Phencyclidine Scrn Negative 05/23/21 09:41 Ur Amphetamines Screen Positive 05/23/21 09:41 U Benzodiazepines Scrn Negative 05/23/21 09:41 Urine Cocaine Screen Negative 05/23/21 09:41 U Marijuana (THC) Screen Negative 05/23/21 09:41 Drugs of Abuse Note Disclamer 05/23/21 09:41 Coronavirus (PCR) Negative (Negative) 05/26/21 08:14 Hepatitis A IgM Ab Non-reactive (NonReactive) 05/27/21 16:00 Hep Bs Antigen Non-reactive (Negative) 05/27/21 16:00 Hep B Core IgM Ab Non-reactive (NonReactive) 05/27/21 16:00 Hepatitis C Antibody Non-reactive (NonReactive) 05/27/21 16:00 Fajardo/IV: Voiding Method Indwelling Catheter Active Medications - Current Medications Current Medications: Generic Name Dose Route Start Last Admin Trade Name Freq PRN Reason Stop Dose Admin Acetaminophen 650 mg 05/23/21 11:43 05/31/21 03:22 Acetaminophen 650 Mg Rect Supp [place] 650 mg Q6H PRN Administration Pain MILD(1-3)/Fever >100.5/EPSTEIN Lipase/Protease/Amylase 1 each 05/29/21 08:45 Lipase 10,500/Protease 25,000/Amylase 43,750 (Units) Dr Cap FEEDTUBE PRN PRN For Clogged Feeding Tube Apixaban 10 mg 06/07/21 15:00 06/10/21 10:28 Apixaban 5 Mg Tab PO 06/13/21 22:01 10 mg Q12HR MARK Administration Protocol Apixaban 5 mg 06/14/21 10:00 Apixaban 5 Mg Tab PO Q12HR MARK Protocol Carvedilol 6.25 mg 06/07/21 12:00 06/10/21 10:28 Carvedilol 6.25 Mg Tab FEEDTUBE 6.25 mg BID MARK Administration Dextrose 0 ml 05/31/21 10:47 Dextrose 10% *Hypoglycemia IV PRN PRN Hypoglycemia Famotidine 40 mg 06/02/21 22:00 06/09/21 21:46 Famotidine 20 Mg Tab FEEDTUBE 40 mg QHS MARK Administration Fentanyl 50 mcg 06/01/21 12:29 Fentanyl 100 Mcg/2 Ml Inj IV Q10MIN PRN ANALGESIA Furosemide 20 mg 06/07/21 12:00 06/10/21 10:28 Furosemide 20 Mg Tab FEEDTUBE 20 mg BID MARK Administration Haloperidol Lactate 5 mg 05/30/21 12:18 06/09/21 16:32 Haloperidol Lactate 5 Mg/1 Ml Inj IV 5 mg Q6H PRN Administration Agitation Hydrophilic Ointment 1 applic 06/01/21 12:30 Lip Therapy Vaseline TP Q2HR PRN Dry Lips Dexmedetomidine HCl 400 mcg/ 104 mls @ 5.307 mls/hr 05/24/21 05:00 06/10/21 11:25 Sodium Chloride IV 0.4 mcg/kg/hr TITRATE MARK 10.614 mls/hr Titration Protocol 0.2 MCG/KG/HR Fentanyl Citrate 2,000 mcg in 100 mls @ 5.103 mls/hr 06/01/21 13:00 06/08/21 11:24 Fentanyl Drip Premix IV 0 mcg/kg/hr TITR MARK 0 mls/hr Titration Protocol 1 MCG/KG/HR Lorazepam 2 mg 05/31/21 11:00 06/09/21 16:32 Lorazepam 2 Mg/Ml Vial IV 2 mg Q4H PRN Administration Agitation Multi-Ingred Cream/Lotion/Oil/Oint 1 applic 06/01/21 12:30 Mineral Oil/Petrolatum, White Ophth Oint 3.5 Gm OU Q4HR PRN Dry Eye(s) Ondansetron HCl 4 mg 05/23/21 11:43 Ondansetron 4 Mg/2 Ml Inj IV Q8H PRN Nausea And Vomiting Quetiapine Fumarate 75 mg 06/07/21 22:00 06/10/21 10:28 Quetiapine 25 Mg Tab PO 75 mg BID MARK Administration Senna/Docusate Sodium 1 tab 06/01/21 22:00 06/10/21 10:28 Sennosides/Docusate Sodium 8.6/50 Mg Tab FEEDTUBE 1 tab BID MARK Administration Simple Syrup 15 ml 05/29/21 08:45 Simple Syrup 15 Ml FEEDTUBE PRN PRN Hypoglycemia Simple Syrup 30 ml 05/29/21 08:45 Simple Syrup 15 Ml FEEDTUBE PRN PRN Hypoglycemia Sodium Bicarbonate 325 mg 05/29/21 08:45 Sodium Bicarbonate 325 Mg Tab FEEDTUBE PRN PRN For Clogged Feeding Tube Sodium Chloride 10 ml 05/23/21 22:00 06/10/21 10:29 Sodium Chloride 0.9% 10 Ml Flush Syringe IV 10 ml BID MARK Administration Sodium Chloride 10 ml 05/23/21 11:43 Sodium Chloride 0.9% 10 Ml Flush Syringe IV PRN PRN LINE FLUSH Sodium Chloride 10 ml 05/31/21 09:50 06/01/21 12:32 Sodium Chloride 0.9% 50 Ml Ivpb IV 10 ml PRN PRN Administration FLUSH Vitamin B Complex/Folic Acid 1 each 05/30/21 10:00 06/10/21 10:28 Folbee Plus Cz (Folic Acid/Vit Bcomp&C/Cu/Znox) PO 1 each QDAY MARK Administration Nutrition/Malnutrition Assess - Dietary Evaluation Nutrition/Malnutrition Findings: Nutrition Notes Start: 05/28/21 12:16 Freq: Status: Active Protocol: Document 06/07/21 15:07 YURI (Rec: 06/07/21 15:17 YURI [id number]) Nutrition Notes Initial or Follow up Reassessment Current Diagnosis Heart Failure,Respiratory Failure Other Pertinent Diagnosis Acute encephalopathy, Overdose , Methamphetamine dependence Current Diet TF - Vital HP at 70ml/hr Labs/Tests Phos 2.3 Pertinent Medications Lasix, 15mmol KPhos x 1 dose, Vit B complex/Folic acid Height 6 ft Weight 102.058 kg [place] Body Weight (kg) 80.90 BMI 30.5 Weight Status Obese Subjective/Other Information Pt remains on vent support. Per RN, pt tolerating TF at goal rate and currently receiving 200ml water flush q4h. PEG and trach placed on 06/04. Percent of energy/protein needs met: 71% energy 91% pro Burn Absent Trauma Absent #1 Nutrition Diagnosis Inadequate oral intake Diagnosis Progress(for reassessment Continues documentation) Is patient on ventilator? Yes Is Patient Ambulatory and/or Out of Bed No REE-([facility]-confined to bed) [phone] Calculation Used for Recommendations 65-70% energy needs Additional Notes Energy needs: 6489-5375 kcal/ day Pro needs 2g/kg IBW: 162g/day Fluid needs 1ml/kcal Nutrition Intervention Nutrition Support: Continue Vital HP at 70 ml/hr. Continue 200ml water flush q4h until hypernatremia resolves; then provide 50ml water flush q4h. Kcal 1,680 Protein (gm) 147 Carbohydrates (gm) 188 Fat (gm) 39 Fluid (mL) 1,404 Fiber (gm) 0 Goal #1 TF tolerance Goal #2 TF to meet 65-70% energy and at least 75% pro needs Follow-Up By: 06/11/21 Additional Comments F/U: Vent status, Na lab/water flush
--- NOTE | 2021-06-05 09:11 | Progress Note ---
Assessment and Plan Impression: * Nonoliguric cute kidney injury secondary to ATN * Acute hypoxic respiratory failure --COVID 19 negative * Acute encephalopathy * Hypernatremia * Hypotension * Drug overdose * Hyperkalemia * Hypernatremia * Upper extremity DVT Plan: * Renal function has improved - BRYNN resolved * Hypernatremia improving - Na 148->150->145->146->142 - note free water flushes with tube feeds, no need for free water infusion at this time * K repletion prn * Continue close monitoring of renal function * Appreciate vascular- on heparin gtt * Appreciate general surgery- s/p trach/PEG * vent/respiratory management per pulm * Pressors prn - maintain MAP>65 * Dose medications for renal function * Strict I/O * Avoid potential nephrotoxins * Nephrology will sign off at this time, please do not hesitate to call with questions or concerns in the future at [phone] Subjective Date of service: 06/05/21 Principal diagnosis: Overdose Interval history: Chart, vitals, labs reviewed. received trach/PEG yesterday per surgery, FiO2 35% Objective - Exam Narrative Exam: General appearance: well-developed, well-nourished, on vent via trach EENT: trach in place Respiratory: Present: Other (coarse BS) Cardiology: regular, S1S2 Gastrointestinal: no distended Integumentary: warm and dry - Vital Signs Vital signs: Vital Signs - 12hr 06/04/21 06/04/21 06/04/21 21:15 21:30 21:45 Temperature Pulse Rate 140 H 148 H 148 H Pulse Rate [ From Monitor] Respiratory 16 53 H 17 Rate Blood Pressure 185/99 213/111 182/96 O2 Sat by Pulse 100 100 95 Oximetry O2 Sat by Pulse Oximetry [ Assessment] 06/04/21 06/04/21 06/04/21 22:00 22:15 22:30 Temperature Pulse Rate 130 H 96 H 88 Pulse Rate [ From Monitor] Respiratory 36 H 27 H 24 Rate Blood Pressure 153/89 104/56 96/49 O2 Sat by Pulse 96 93 94 Oximetry O2 Sat by Pulse Oximetry [ Assessment] 06/04/21 06/04/21 06/04/21 22:45 23:00 23:15 Temperature Pulse Rate 82 76 74 Pulse Rate [ From Monitor] Respiratory 21 20 18 Rate Blood Pressure 96/47 100/45 101/48 O2 Sat by Pulse 95 96 96 Oximetry O2 Sat by Pulse Oximetry [ Assessment] 06/04/21 06/04/21 06/04/21 23:21 23:22 23:30 Temperature Pulse Rate 95 H 84 80 Pulse Rate [ From Monitor] Respiratory 15 22 Rate Blood Pressure 101/48 101/48 108/50 O2 Sat by Pulse 97 97 98 Oximetry O2 Sat by Pulse Oximetry [ Assessment] 06/04/21 06/05/21 06/05/21 23:45 00:00 00:15 Temperature 99.3 F Pulse Rate 75 75 75 Pulse Rate [ 76 From Monitor] Respiratory 15 19 20 Rate Blood Pressure 96/47 101/46 95/45 O2 Sat by Pulse 98 98 98 Oximetry O2 Sat by Pulse Oximetry [ Assessment] 06/05/21 06/05/21 06/05/21 00:30 00:45 01:01 Temperature Pulse Rate 75 76 108 H Pulse Rate [ From Monitor] Respiratory 20 22 26 H Rate Blood Pressure 96/44 105/54 127/71 O2 Sat by Pulse 98 97 100 Oximetry O2 Sat by Pulse Oximetry [ Assessment] 06/05/21 06/05/21 06/05/21 01:15 01:31 01:45 Temperature Pulse Rate 137 H 129 H 131 H Pulse Rate [ From Monitor] Respiratory 33 H 30 H 30 H Rate Blood Pressure 165/80 165/80 160/79 O2 Sat by Pulse 100 98 98 Oximetry O2 Sat by Pulse Oximetry [ Assessment] 06/05/21 06/05/21 06/05/21 02:00 02:15 02:30 Temperature Pulse Rate 129 H 130 H 128 H Pulse Rate [ From Monitor] Respiratory 33 H 17 20 Rate Blood Pressure 150/75 150/75 160/93 O2 Sat by Pulse 98 98 96 Oximetry O2 Sat by Pulse Oximetry [ Assessment] 06/05/21 06/05/21 06/05/21 02:45 03:01 03:15 Temperature Pulse Rate 128 H 128 H 124 H Pulse Rate [ From Monitor] Respiratory 30 H 14 20 Rate Blood Pressure 160/93 153/84 136/76 O2 Sat by Pulse 98 98 98 Oximetry O2 Sat by Pulse Oximetry [ Assessment] 06/05/21 06/05/21 06/05/21 03:30 03:45 03:46 Temperature Pulse Rate 120 H 119 H 122 H Pulse Rate [ From Monitor] Respiratory 24 25 H Rate Blood Pressure 143/71 144/69 144/69 O2 Sat by Pulse 98 98 98 Oximetry O2 Sat by Pulse Oximetry [ Assessment] 06/05/21 06/05/21 06/05/21 03:47 03:51 03:56 Temperature 98.3 F 97.7 F Pulse Rate Pulse Rate [ From Monitor] Respiratory Rate Blood Pressure O2 Sat by Pulse Oximetry O2 Sat by Pulse 100 Oximetry [ Assessment] 06/05/21 06/05/21 06/05/21 04:00 04:15 04:30 Temperature Pulse Rate 105 H 128 H 138 H Pulse Rate [ 116 H From Monitor] Respiratory 23 21 15 Rate Blood Pressure 125/60 146/76 164/95 O2 Sat by Pulse 97 100 99 Oximetry O2 Sat by Pulse Oximetry [ Assessment] 06/05/21 06/05/21 06/05/21 04:45 05:01 05:15 Temperature Pulse Rate 138 H 131 H 124 H Pulse Rate [ From Monitor] Respiratory 22 18 21 Rate Blood Pressure 164/95 157/76 157/76 O2 Sat by Pulse 98 98 97 Oximetry O2 Sat by Pulse Oximetry [ Assessment] 06/05/21 06/05/21 06/05/21 05:31 05:45 06:01 Temperature Pulse Rate 129 H 127 H 128 H Pulse Rate [ From Monitor] Respiratory 17 17 26 H Rate Blood Pressure 144/76 144/76 160/82 O2 Sat by Pulse 100 97 98 Oximetry O2 Sat by Pulse Oximetry [ Assessment] 06/05/21 06/05/21 06/05/21 06:15 06:31 06:45 Temperature Pulse Rate 123 H 116 H 120 H Pulse Rate [ From Monitor] Respiratory 35 H 29 H 21 Rate Blood Pressure 160/82 150/69 150/69 O2 Sat by Pulse 97 96 98 Oximetry O2 Sat by Pulse Oximetry [ Assessment] 06/05/21 06/05/21 06/05/21 07:01 07:15 07:31 Temperature Pulse Rate 123 H 124 H 120 H Pulse Rate [ From Monitor] Respiratory 14 28 H 24 Rate Blood Pressure 145/70 145/70 138/68 O2 Sat by Pulse 99 99 98 Oximetry O2 Sat by Pulse Oximetry [ Assessment] 06/05/21 06/05/21 06/05/21 07:45 08:00 08:08 Temperature Pulse Rate 130 H 129 H 127 H Pulse Rate [ 127 H From Monitor] Respiratory 19 14 Rate Blood Pressure 146/84 152/86 152/86 O2 Sat by Pulse 99 98 98 Oximetry O2 Sat by Pulse Oximetry [ Assessment] 06/05/21 08:15 Temperature Pulse Rate 122 H Pulse Rate [ From Monitor] Respiratory 16 Rate Blood Pressure 152/86 O2 Sat by Pulse 98 Oximetry O2 Sat by Pulse Oximetry [ Assessment] - Lab 06/05/21 04:00 06/05/21 04:00 Most recent lab results ABG pH 7.406 (7.320-7.450) 06/04/21 04:00 ABG pCO2 54.4 mm Hg 06/02/21 05:42 ABG pO2 141.2 mm Hg (80.0-90.0) H 06/02/21 05:42 ABG HCO3 30.6 mmol/L (20.0-26.0) H 06/02/21 05:42 ABG O2 Saturation 92.7 (0-100) 06/04/21 04:00 Calcium 8.7 mg/dL (8.4-10.2) 06/05/21 04:00 Phosphorus 3.00 mg/dL (2.5-4.5) 06/02/21 07:41 Magnesium 1.70 mg/dL (1.7-2.3) 06/02/21 07:41 Medications & Allergies - Medications Allergies/Adverse Reactions: Allergies No Known Allergies Allergy (Verified 05/26/21 10:09) Home Medications: Home Medications Medication Instructions Recorded Confirmed Last Taken Type Unobtainable 09/13/13 09/13/13 Unknown History Active Medications: Generic Name Dose Route Start Last Admin Trade Name Freq PRN Reason Stop Dose Admin Acetaminophen 650 mg 05/23/21 11:43 05/31/21 03:22 Acetaminophen 650 Mg Rect Supp [place] 650 mg Q6H PRN Administration Pain MILD(1-3)/Fever >100.5/EPSTEIN Lipase/Protease/Amylase 1 each 05/29/21 08:45 Lipase 10,500/Protease 25,000/Amylase 43,750 (Units) Dr [place] FEEDTUBE PRN PRN For Clogged Feeding Tube Dextrose 0 ml 05/31/21 10:47 Dextrose 10% *Hypoglycemia IV PRN PRN Hypoglycemia Famotidine 40 mg 06/02/21 22:00 06/04/21 22:22 Famotidine 20 Mg Tab FEEDTUBE 40 mg QHS MARK Administration Fentanyl 50 mcg 06/01/21 12:29 Fentanyl 100 Mcg/2 Ml Inj IV Q10MIN PRN ANALGESIA Haloperidol Lactate 5 mg 05/30/21 12:18 06/01/21 09:27 Haloperidol Lactate 5 Mg/1 Ml Inj IV 5 mg Q6H PRN Administration Agitation Heparin Sodium (Porcine) 4,100 unit 06/03/21 15:02 Heparin 10,000 Units/10 Ml Vial 40 unit/kg (4100 unit) IV Q6H PRN Anti-Xa Assay < 0.1 units/ml Hydrophilic Ointment 1 applic 06/01/21 12:30 Lip Therapy Vaseline TP Q2HR PRN Dry Lips Dexmedetomidine HCl 400 mcg/ 104 mls @ 5.307 mls/hr 05/24/21 05:00 06/05/21 08:20 Sodium Chloride IV 1.4 mcg/kg/hr TITRATE MARK 37.149 mls/hr Administration Protocol 0.2 MCG/KG/HR Fentanyl Citrate 2,000 mcg in 100 mls @ 5.103 mls/hr 06/01/21 13:00 06/05/21 07:01 Fentanyl Drip Premix IV 4 mcg/kg/hr TITR MARK 20.412 mls/hr Administration Protocol 1 MCG/KG/HR Propofol 1,000 mg in 100 mls @ 3.062 mls/hr 06/01/21 12:10 06/05/21 08:22 Diprivan 10 Mg/Ml IV 40 mcg/kg/min TITR MARK 24.494 mls/hr Administration Protocol 5 MCG/KG/MIN Ampicillin Sodium/Sulbactam Sodium 3 gm in 100 mls @ 200 mls/hr 06/03/21 11:00 06/05/21 05:14 Unasyn/Ns 3 Gm/100 Ml IV 06/10/21 05:29 200 mls/hr Q6H MARK Administration Protocol Midazolam HCl 100 mg/ Sodium 100 mls @ 1 mls/hr 06/03/21 11:00 06/05/21 08:23 Chloride IV 2 mg/hr TITR MARK 2 mls/hr Titration Protocol 1 MG/HR Heparin Sodium/Sodium Chloride 25,000 unit in 500 mls @ 30 mls/hr 06/03/21 16:00 06/05/21 05:38 Heparin/ 0.45% Nacl-25,000 Unit/500 Ml IV 1,700 units/hr TITR MARK 34 mls/hr Titration Protocol 1,500 UNITS/HR Lorazepam 2 mg 05/31/21 11:00 06/03/21 09:20 Lorazepam 2 Mg/Ml Vial IV 2 mg Q4H PRN Administration Agitation Midazolam HCl 2 mg 06/03/21 10:06 Midazolam 2 Mg/2 Ml Inj IV Q10MIN PRN Sedation Midodrine 5 mg 06/02/21 12:00 06/04/21 17:12 Midodrine 5 Mg Tab PO 5 mg TID@0800,1200,1600 MARK Administration Multi-Ingred Cream/Lotion/Oil/Oint 1 applic 06/01/21 12:30 Mineral Oil/Petrolatum, White Ophth Oint 3.5 Gm OU Q4HR PRN Dry Eye(s) Ondansetron HCl 4 mg 05/23/21 11:43 Ondansetron 4 Mg/2 Ml Inj IV Q8H PRN Nausea And Vomiting Senna/Docusate Sodium 1 tab 06/01/21 22:00 06/04/21 22:00 Sennosides/Docusate Sodium 8.6/50 Mg Tab FEEDTUBE Not Given BID MARK Simple Syrup 15 ml 05/29/21 08:45 Simple Syrup 15 Ml FEEDTUBE PRN PRN Hypoglycemia Simple Syrup 30 ml 05/29/21 08:45 Simple Syrup 15 Ml FEEDTUBE PRN PRN Hypoglycemia Sodium Bicarbonate 325 mg 05/29/21 08:45 Sodium Bicarbonate 325 Mg Tab FEEDTUBE PRN PRN For Clogged Feeding Tube Sodium Chloride 10 ml 05/23/21 22:00 06/04/21 22:28 Sodium Chloride 0.9% 10 Ml Flush Syringe IV 10 ml BID MARK Administration Sodium Chloride 10 ml 05/23/21 11:43 Sodium Chloride 0.9% 10 Ml Flush Syringe IV PRN PRN LINE FLUSH Sodium Chloride 10 ml 05/31/21 09:50 06/01/21 12:32 Sodium Chloride 0.9% 50 Ml Ivpb IV 10 ml PRN PRN Administration FLUSH Vitamin B Complex/Folic Acid 1 each 05/30/21 10:00 06/04/21 09:35 Folbee Plus Cz (Folic Acid/Vit Bcomp&C/Cu/Znox) PO 1 each QDAY MARK Administration
--- NOTE | 2021-06-05 09:33 | Progress Note ---
Assessment and Plan 40 y/o male with suspected overdose and metabolic acidosis 06/05/21: Gain control of sedation and mental state. Feed per peg tube. Antic oagulation for DVT. Abx. Placement. 06/04/21: Trach and peg today. Wean sedation as tolerated once trached. once off all sedation can try PSV trials if patient will remain calm enough. Anticoagulation for DVT. MRI and head CT were negative. COntinue abx therapy. Guarded prognosis. 06/03/21: Surgery has seen and will schedule for trach and peg soon. IR consulted given acute DVT in upper ext and possible retained products. Will obtain CT of chest. Given mental status and no real answer with negative head CT, will obtain MRI. Will start empiric unasyn given secretions, odor and white count. Only on minimal vent settings. Await sputum culture. LFT's better. WIll place central line in groin. GUarded prognosis. 06/02/21: recheck LFT's. Consult surgery for trach and peg. Feed patient. Reviewed abdominal US from 05/27, unremarkable but if LFT's worse, may need to repeat or even consider CT of abdomen pelvis. 06/01/21: Reintubated today. Sedated. Spoke with mother over the phone. Given this is the third intubation in less than 10 days, will consult surgery for trach and peg. 05/31/21: Extubated and had some upper airway noise. RT gave racemic epi. Increased work of breathing but no desats so will try bipap therapy. If fails will be reintubated and trached. Keep NPO for now. Will need to change BB to IV while on bipap therapy. 05/28/21: Extubate again today once patient is more awake. Continue precedex to help with agitation. Will need swallow eval once extubated. Cards is seeing, await any new recs. spoke with them this morning and his cardiomyopathy and systolic heart failure are chronic with normal coronaries on a cath last year sometime in the [facility]. 05/27/21: Get patient to ICU as soon as possible to achieve adequate sedation a nd mental state control to insure successful extubation. AGree with Precedex 05/26/21: Attempt extubation today once all sedation is off. 05/25/21: follow up echo. Spoke with RT about ABG. States will be in system within the hour. Still pressors but on Precedex, Versed and Fent. needs to be COVID tested. BNP was >6k. Unable to diurese right now given pressor requirements but need to follow up echo. need to get patient upstairs as soon as possible. Spoke with charge nurse and they are working on this. 1. CXR shows cardiomegaly with some bibasilar changes. Could be fluid. Suggest swabbing for COVID. Check BNP and obtain 2D echo given heart size. 2. Minimal sedation to assess mental status 3. Wean pressors for MAPS >60 4. Follow up renal recs 5. No ABG prior to intubation. Echo should be a bubble study given degree of hypoxemia seen on ABG CCT 31 minutes. Subjective Date of service: 06/05/21 Principal diagnosis: Overdose Interval history: Trached and pegged on yesterday. Agitated this am. Not able to wean sedation. Does follow some commands Objective Vital Signs - 12hr 06/04/21 06/04/21 06/04/21 21:30 21:45 22:00 Temperature Pulse Rate 148 H 148 H 130 H Pulse Rate [ From Monitor] Respiratory 53 H 17 36 H Rate Blood Pressure 213/111 182/96 153/89 O2 Sat by Pulse 100 95 96 Oximetry O2 Sat by Pulse Oximetry [ Assessment] 06/04/21 06/04/21 06/04/21 22:15 22:30 22:45 Temperature Pulse Rate 96 H 88 82 Pulse Rate [ From Monitor] Respiratory 27 H 24 21 Rate Blood Pressure 104/56 96/49 96/47 O2 Sat by Pulse 93 94 95 Oximetry O2 Sat by Pulse Oximetry [ Assessment] 06/04/21 06/04/21 06/04/21 23:00 23:15 23:21 Temperature Pulse Rate 76 74 95 H Pulse Rate [ From Monitor] Respiratory 20 18 15 Rate Blood Pressure 100/45 101/48 101/48 O2 Sat by Pulse 96 96 97 Oximetry O2 Sat by Pulse Oximetry [ Assessment] 06/04/21 06/04/21 06/04/21 23:22 23:30 23:45 Temperature Pulse Rate 84 80 75 Pulse Rate [ From Monitor] Respiratory 22 15 Rate Blood Pressure 101/48 108/50 96/47 O2 Sat by Pulse 97 98 98 Oximetry O2 Sat by Pulse Oximetry [ Assessment] 06/05/21 06/05/2122 00:00 00:15 00:30 Temperature 99.3 F Pulse Rate 75 75 75 Pulse Rate [ 76 From Monitor] Respiratory 19 20 20 Rate Blood Pressure 101/46 95/45 96/44 O2 Sat by Pulse 98 98 98 Oximetry O2 Sat by Pulse Oximetry [ Assessment] 06/05/21 06/05/21 06/05/21 00:45 01:01 01:15 Temperature Pulse Rate 76 108 H 137 H Pulse Rate [ From Monitor] Respiratory 22 26 H 33 H Rate Blood Pressure 105/54 127/71 165/80 O2 Sat by Pulse 97 100 100 Oximetry O2 Sat by Pulse Oximetry [ Assessment] 06/05/21 06/05/21 06/05/21 01:31 01:45 02:00 Temperature Pulse Rate 129 H 131 H 129 H Pulse Rate [ From Monitor] Respiratory 30 H 30 H 33 H Rate Blood Pressure 165/80 160/79 150/75 O2 Sat by Pulse 98 98 98 Oximetry O2 Sat by Pulse Oximetry [ Assessment] 06/05/21 06/05/21 06/05/21 02:15 02:30 02:45 Temperature Pulse Rate 130 H 128 H 128 H Pulse Rate [ From Monitor] Respiratory 17 20 30 H Rate Blood Pressure 150/75 160/93 160/93 O2 Sat by Pulse 98 96 98 Oximetry O2 Sat by Pulse Oximetry [ Assessment] 06/05/21 06/05/21 06/05/21 03:01 03:15 03:30 Temperature Pulse Rate 128 H 124 H 120 H Pulse Rate [ From Monitor] Respiratory 14 20 24 Rate Blood Pressure 153/84 136/76 143/71 O2 Sat by Pulse 98 98 98 Oximetry O2 Sat by Pulse Oximetry [ Assessment] 06/05/21 06/05/21 06/05/21 03:45 03:46 03:47 Temperature Pulse Rate 119 H 122 H Pulse Rate [ From Monitor] Respiratory 25 H Rate Blood Pressure 144/69 144/69 O2 Sat by Pulse 98 98 Oximetry O2 Sat by Pulse 100 Oximetry [ Assessment] 06/05/21 06/05/21 06/05/21 03:51 03:56 04:00 Temperature 98.3 F 97.7 F Pulse Rate 105 H Pulse Rate [ 116 H From Monitor] Respiratory 23 Rate Blood Pressure 125/60 O2 Sat by Pulse 97 Oximetry O2 Sat by Pulse Oximetry [ Assessment] 06/05/21 06/05/21 06/05/21 04:15 04:30 04:45 Temperature Pulse Rate 128 H 138 H 138 H Pulse Rate [ From Monitor] Respiratory 21 15 22 Rate Blood Pressure 146/76 164/95 164/95 O2 Sat by Pulse 100 99 98 Oximetry O2 Sat by Pulse Oximetry [ Assessment] 06/05/21 06/05/21 06/05/21 05:01 05:15 05:31 Temperature Pulse Rate 131 H 124 H 129 H Pulse Rate [ From Monitor] Respiratory 18 21 17 Rate Blood Pressure 157/76 157/76 144/76 O2 Sat by Pulse 98 97 100 Oximetry O2 Sat by Pulse Oximetry [ Assessment] 06/05/21 06/05/21 06/05/21 05:45 06:01 06:15 Temperature Pulse Rate 127 H 128 H 123 H Pulse Rate [ From Monitor] Respiratory 17 26 H 35 H Rate Blood Pressure 144/76 160/82 160/82 O2 Sat by Pulse 97 98 97 Oximetry O2 Sat by Pulse Oximetry [ Assessment] 06/05/21 06/05/21 06/05/21 06:31 06:45 07:01 Temperature Pulse Rate 116 H 120 H 123 H Pulse Rate [ From Monitor] Respiratory 29 H 21 14 Rate Blood Pressure 150/69 150/69 145/70 O2 Sat by Pulse 96 98 99 Oximetry O2 Sat by Pulse Oximetry [ Assessment] 06/05/21 06/05/21 06/05/21 07:15 07:31 07:45 Temperature Pulse Rate 124 H 120 H 130 H Pulse Rate [ From Monitor] Respiratory 28 H 24 19 Rate Blood Pressure 145/70 138/68 146/84 O2 Sat by Pulse 99 98 99 Oximetry O2 Sat by Pulse Oximetry [ Assessment] 06/05/21 06/05/21 06/05/21 08:00 08:08 08:15 Temperature Pulse Rate 129 H 127 H 122 H Pulse Rate [ 127 H From Monitor] Respiratory 14 16 Rate Blood Pressure 152/86 152/86 152/86 O2 Sat by Pulse 98 98 98 Oximetry O2 Sat by Pulse Oximetry [ Assessment] Constitutional: other (Arousable to verbal stimulation) ENT: oropharynx moist, other (Orally intubated) Ascultation: Bilateral: rhonchi Cardiovascular: regular rate and rhythm (With episodes of tachycardia) Gastrointestinal: normoactive bowel sounds, soft, non-tender CBC and BMP: 06/05/21 04:00 06/05/21 04:00 ABG, PT/INR, D-dimer: ABG ABG pH 7.406 (7.320-7.450) 06/04/21 04:00 POC ABG pCO2 51.5 mmHg (32.0-48.0) H 06/04/21 04:00 ABG pCO2 54.4 mm Hg 06/02/21 05:42 POC ABG pO2 61.7 mmHg (83-108) L 06/04/21 04:00 ABG pO2 141.2 mm Hg (80.0-90.0) H 06/02/21 05:42 POC ABG HCO3 31.6 06/04/21 04:00 ABG O2 Saturation 92.7 (0-100) 06/04/21 04:00 PT/INR, D-dimer PT 15.8 Sec. (12.2-14.9) H 06/04/21 04:10 INR 1.14 (0.87-1.13) H 06/04/21 04:10 Abnormal lab findings: Abnormal Labs 05/23/21 05/23/21 05/23/21 05:55 09:38 09:38 WBC RBC 5.09 H Hgb Hct 46.2 H MCH MCHC RDW Plt Count Lymph % (Auto) [place] % (Auto) [place] # (Auto) Seg Neutrophils % Seg Neuts % (Manual) Lymphocytes % (Manual) Seg Neutrophils # Seg Neutrophils # Man Lymphocytes # (Manual) PT INR Heparin Anti-Xa Level ABG pH 7.265 L POC ABG pCO2 POC ABG pO2 ABG pO2 ABG HCO3 ABG O2 Saturation 94.6 L ABG Base Excess -4.5 L ABG Hemoglobin ABG Oxyhemoglobin ABG Potassium ABG Glucose Oxyhemoglobin 92.3 L Carboxyhemoglobin Sodium Potassium Chloride Carbon Dioxide 20 L BUN Creatinine Glucose 147 H POC Glucose Lactic Acid Calcium Phosphorus Magnesium Total Bilirubin Direct Bilirubin AST Total Creatine Kinase C-Reactive Protein NT-Pro-B Natriuret Pep Total Protein Albumin 3.6 L Triglycerides Arterial Blood Glucose Urine WBC (Auto) Salicylates Acetaminophen 05/23/21 05/23/21 05/23/21 09:38 09:38 09:38 WBC RBC Hgb Hct MCH MCHC RDW Plt Count Lymph % (Auto) [place] % (Auto) [place] # (Auto) Seg Neutrophils % Seg Neuts % (Manual) Lymphocytes % (Manual) Seg Neutrophils # Seg Neutrophils # Man Lymphocytes # (Manual) PT INR Heparin Anti-Xa Level ABG pH POC ABG pCO2 POC ABG pO2 ABG pO2 ABG HCO3 ABG O2 Saturation ABG Base Excess ABG Hemoglobin ABG Oxyhemoglobin ABG Potassium ABG Glucose Oxyhemoglobin Carboxyhemoglobin Sodium Potassium Chloride Carbon Dioxide BUN Creatinine Glucose POC Glucose Lactic Acid Calcium Phosphorus Magnesium Total Bilirubin Direct Bilirubin AST Total Creatine Kinase C-Reactive Protein NT-Pro-B Natriuret Pep 6058 H Total Protein Albumin Triglycerides Arterial Blood Glucose Urine WBC (Auto) Salicylates < 0.3 L Acetaminophen 5.0 L 05/23/21 05/23/21 05/24/21 12:49 Unknown 03:44 WBC RBC Hgb Hct MCH MCHC RDW Plt Count Lymph % (Auto) [place] % (Auto) [place] # (Auto) Seg Neutrophils % Seg Neuts % (Manual) Lymphocytes % (Manual) Seg Neutrophils # Seg Neutrophils # Man Lymphocytes # (Manual) PT INR Heparin Anti-Xa Level ABG pH 7.208 L 7.241 L POC ABG pCO2 POC ABG pO2 ABG pO2 52.2 L ABG HCO3 ABG O2 Saturation 93.5 L 83.7 L ABG Base Excess -6.7 L -3.7 L ABG Hemoglobin ABG Oxyhemoglobin ABG Potassium 5.6 H ABG Glucose 53 L Oxyhemoglobin 91.1 L 81.1 L Carboxyhemoglobin Sodium Potassium Chloride Carbon Dioxide BUN Creatinine Glucose POC Glucose Lactic Acid Calcium Phosphorus Magnesium Total Bilirubin Direct Bilirubin AST Total Creatine Kinase C-Reactive Protein NT-Pro-B Natriuret Pep Total Protein Albumin Triglycerides Arterial Blood Glucose 53 L Urine WBC (Auto) Salicylates Acetaminophen 05/24/21 05/24/21 05/24/21 05:14 05:14 09:35 WBC 23.3 H RBC 5.23 H Hgb Hct 47.3 H MCH MCHC RDW 15.3 H Plt Count Lymph % (Auto) [place] % (Auto) [place] # (Auto) Seg Neutrophils % Seg Neuts % (Manual) 12.0 L Lymphocytes % (Manual) 3.0 L Seg Neutrophils # Seg Neutrophils # Man Lymphocytes # (Manual) 0.7 L PT INR Heparin Anti-Xa Level ABG pH POC ABG pCO2 POC ABG pO2 ABG pO2 ABG HCO3 ABG O2 Saturation ABG Base Excess ABG Hemoglobin ABG Oxyhemoglobin ABG Potassium ABG Glucose Oxyhemoglobin Carboxyhemoglobin Sodium Potassium 6.3 H* D Chloride 107.3 H Carbon Dioxide 20 L BUN 33 H Creatinine 3.5 H D Glucose 56 L POC Glucose Lactic Acid Calcium Phosphorus Magnesium Total Bilirubin 1.90 H Direct Bilirubin AST Total Creatine Kinase 556 H C-Reactive Protein NT-Pro-B Natriuret Pep Total Protein 4.9 L D Albumin 2.8 L Triglycerides Arterial Blood Glucose Urine WBC (Auto) Salicylates Acetaminophen 05/24/21 05/24/21 05/25/21 19:45 Unknown 04:23 WBC 20.1 H RBC Hgb Hct MCH MCHC 31 L RDW 15.5 H Plt Count Lymph % (Auto) [place] % (Auto) [place] # (Auto) Seg Neutrophils % Seg Neuts % (Manual) 94.0 H Lymphocytes % (Manual) 5.0 L Seg Neutrophils # Seg Neutrophils # Man 18.9 H Lymphocytes # (Manual) 1.0 L PT INR Heparin Anti-Xa Level ABG pH POC ABG pCO2 POC ABG pO2 ABG pO2 ABG HCO3 ABG O2 Saturation ABG Base Excess ABG Hemoglobin ABG Oxyhemoglobin ABG Potassium ABG Glucose Oxyhemoglobin Carboxyhemoglobin Sodium Potassium 5.7 H Chloride 108.9 H Carbon Dioxide 21 L BUN 36 H Creatinine 2.6 H Glucose 108 H POC Glucose Lactic Acid Calcium Phosphorus Magnesium Total Bilirubin Direct Bilirubin AST Total Creatine Kinase C-Reactive Protein NT-Pro-B Natriuret Pep Total Protein Albumin Triglycerides Arterial Blood Glucose Urine WBC (Auto) 78.0 H Salicylates Acetaminophen 05/25/21 05/25/21 05/25/21 04:23 09:14 11:46 WBC RBC Hgb Hct MCH MCHC RDW Plt Count Lymph % (Auto) [place] % (Auto) [place] # (Auto) Seg Neutrophils % Seg Neuts % (Manual) Lymphocytes % (Manual) Seg Neutrophils # Seg Neutrophils # Man Lymphocytes # (Manual) PT INR Heparin Anti-Xa Level ABG pH POC ABG pCO2 POC ABG pO2 ABG pO2 ABG HCO3 ABG O2 Saturation ABG Base Excess ABG Hemoglobin ABG Oxyhemoglobin ABG Potassium ABG Glucose Oxyhemoglobin Carboxyhemoglobin Sodium Potassium Chloride 111.4 H Carbon Dioxide 18 L BUN 33 H Creatinine 1.9 H Glucose 121 H POC Glucose Lactic Acid 2.40 H* 2.60 H* Calcium Phosphorus Magnesium Total Bilirubin Direct Bilirubin AST Total Creatine Kinase C-Reactive Protein NT-Pro-B Natriuret Pep Total Protein Albumin Triglycerides Arterial Blood Glucose Urine WBC (Auto) Salicylates Acetaminophen 05/25/21 05/26/21 05/26/21 18:00 03:16 05:55 WBC 22.0 H RBC Hgb Hct MCH MCHC RDW 15.3 H Plt Count Lymph % (Auto) [place] % (Auto) [place] # (Auto) Seg Neutrophils % Seg Neuts % (Manual) 96.0 H Lymphocytes % (Manual) 2.0 L Seg Neutrophils # Seg Neutrophils # Man 21.1 H Lymphocytes # (Manual) 0.4 L PT INR Heparin Anti-Xa Level ABG pH POC ABG pCO2 POC ABG pO2 ABG pO2 208.2 H ABG HCO3 ABG O2 Saturation 99.3 H ABG Base Excess -2.7 L -2.6 L ABG Hemoglobin 13.7 L 13.0 L ABG Oxyhemoglobin ABG Potassium ABG Glucose Oxyhemoglobin 94.8 L Carboxyhemoglobin Sodium Potassium Chloride Carbon Dioxide BUN Creatinine Glucose POC Glucose Lactic Acid Calcium Phosphorus Magnesium Total Bilirubin Direct Bilirubin AST Total Creatine Kinase C-Reactive Protein NT-Pro-B Natriuret Pep Total Protein Albumin Triglycerides Arterial Blood Glucose Urine WBC (Auto) Salicylates Acetaminophen 05/26/21 05/27/21 05/27/21 05:55 03:18 03:18 WBC 21.5 H RBC Hgb Hct MCH MCHC RDW 15.5 H Plt Count Lymph % (Auto) [place] % (Auto) [place] # (Auto) Seg Neutrophils % Seg Neuts % (Manual) 92.0 H Lymphocytes % (Manual) 5.0 L Seg Neutrophils # Seg Neutrophils # Man 19.8 H Lymphocytes # (Manual) 1.1 L PT INR Heparin Anti-Xa Level ABG pH POC ABG pCO2 POC ABG pO2 ABG pO2 ABG HCO3 ABG O2 Saturation ABG Base Excess ABG Hemoglobin ABG Oxyhemoglobin ABG Potassium ABG Glucose Oxyhemoglobin Carboxyhemoglobin Sodium 148 H Potassium Chloride 111.3 H 113.8 H Carbon Dioxide 21 L 20 L BUN 23 H Creatinine Glucose 102 H 103 H POC Glucose Lactic Acid Calcium 8.3 L Phosphorus Magnesium Total Bilirubin 7.80 H Direct Bilirubin AST 112 H Total Creatine Kinase C-Reactive Protein NT-Pro-B Natriuret Pep Total Protein 5.2 L Albumin 2.9 L Triglycerides Arterial Blood Glucose Urine WBC (Auto) Salicylates Acetaminophen 05/27/21 05/28/21 05/28/21 03:18 05:55 10:05 WBC 11.4 H RBC Hgb Hct MCH MCHC RDW 15.5 H Plt Count Lymph % (Auto) 11.2 L [place] % (Auto) 8.6 H [place] # (Auto) 1.0 H Seg Neutrophils % 78.9 H Seg Neuts % (Manual) Lymphocytes % (Manual) Seg Neutrophils # 9.0 H Seg Neutrophils # Man Lymphocytes # (Manual) PT INR Heparin Anti-Xa Level ABG pH POC ABG pCO2 POC ABG pO2 ABG pO2 104.7 H ABG HCO3 ABG O2 Saturation ABG Base Excess -3.1 L ABG Hemoglobin 13.2 L ABG Oxyhemoglobin ABG Potassium ABG Glucose Oxyhemoglobin Carboxyhemoglobin Sodium Potassium Chloride Carbon Dioxide BUN Creatinine Glucose POC Glucose Lactic Acid Calcium Phosphorus Magnesium Total Bilirubin 7.90 H Direct Bilirubin 6.0 H AST 114 H Total Creatine Kinase C-Reactive Protein NT-Pro-B Natriuret Pep Total Protein 5.2 L Albumin 2.8 L Triglycerides Arterial Blood Glucose Urine WBC (Auto) Salicylates Acetaminophen 05/28/21 05/28/21 05/28/21 10:05 10:05 10:05 WBC RBC Hgb Hct MCH MCHC RDW Plt Count Lymph % (Auto) [place] % (Auto) [place] # (Auto) Seg Neutrophils % Seg Neuts % (Manual) Lymphocytes % (Manual) Seg Neutrophils # Seg Neutrophils # Man Lymphocytes # (Manual) PT INR Heparin Anti-Xa Level ABG pH POC ABG pCO2 POC ABG pO2 ABG pO2 ABG HCO3 ABG O2 Saturation ABG Base Excess ABG Hemoglobin ABG Oxyhemoglobin ABG Potassium ABG Glucose Oxyhemoglobin Carboxyhemoglobin Sodium 149 H Potassium Chloride 119.9 H Carbon Dioxide 18 L BUN Creatinine Glucose 103 H POC Glucose Lactic Acid 2.10 H* Calcium Phosphorus Magnesium Total Bilirubin Direct Bilirubin AST Total Creatine Kinase C-Reactive Protein 34.80 H NT-Pro-B Natriuret Pep Total Protein Albumin Triglycerides Arterial Blood Glucose Urine WBC (Auto) Salicylates Acetaminophen 05/29/21 05/29/21 05/29/21 03:00 05:02 05:02 WBC 13.0 H RBC Hgb Hct MCH MCHC RDW 15.4 H Plt Count Lymph % (Auto) [place] % (Auto) [place] # (Auto) Seg Neutrophils % Seg Neuts % (Manual) Lymphocytes % (Manual) Seg Neutrophils # Seg Neutrophils # Man Lymphocytes # (Manual) PT INR Heparin Anti-Xa Level ABG pH POC ABG pCO2 POC ABG pO2 ABG pO2 138.1 H ABG HCO3 ABG O2 Saturation ABG Base Excess -3.6 L ABG Hemoglobin 12.8 L ABG Oxyhemoglobin ABG Potassium ABG Glucose Oxyhemoglobin Carboxyhemoglobin Sodium 150 H Potassium Chloride 119.8 H Carbon Dioxide 18 L BUN Creatinine Glucose 109 H POC Glucose Lactic Acid Calcium Phosphorus 2.20 L Magnesium 1.50 L Total Bilirubin Direct Bilirubin AST Total Creatine Kinase C-Reactive Protein NT-Pro-B Natriuret Pep Total Protein Albumin Triglycerides Arterial Blood Glucose Urine WBC (Auto) Salicylates Acetaminophen 05/29/21 05/29/21 05/30/21 17:00 23:37 04:29 WBC RBC Hgb 10.8 L Hct 33.4 L MCH MCHC RDW 15.7 H Plt Count Lymph % (Auto) [place] % (Auto) [place] # (Auto) Seg Neutrophils % Seg Neuts % (Manual) Lymphocytes % (Manual) Seg Neutrophils # Seg Neutrophils # Man Lymphocytes # (Manual) PT INR Heparin Anti-Xa Level ABG pH POC ABG pCO2 POC ABG pO2 ABG pO2 ABG HCO3 ABG O2 Saturation ABG Base Excess ABG Hemoglobin ABG Oxyhemoglobin ABG Potassium ABG Glucose Oxyhemoglobin Carboxyhemoglobin Sodium Potassium Chloride Carbon Dioxide BUN Creatinine Glucose POC Glucose 114 H 122 H Lactic Acid Calcium Phosphorus Magnesium Total Bilirubin Direct Bilirubin AST Total Creatine Kinase C-Reactive Protein NT-Pro-B Natriuret Pep Total Protein Albumin Triglycerides Arterial Blood Glucose Urine WBC (Auto) Salicylates Acetaminophen 05/30/21 05/30/21 05/31/21 04:29 23:36 04:00 WBC 11.2 H RBC Hgb 10.9 L Hct 34.3 L MCH MCHC RDW 15.4 H Plt Count Lymph % (Auto) [place] % (Auto) [place] # (Auto) Seg Neutrophils % Seg Neuts % (Manual) Lymphocytes % (Manual) Seg Neutrophils # Seg Neutrophils # Man Lymphocytes # (Manual) PT INR Heparin Anti-Xa Level ABG pH POC ABG pCO2 POC ABG pO2 ABG pO2 ABG HCO3 ABG O2 Saturation ABG Base Excess ABG Hemoglobin ABG Oxyhemoglobin ABG Potassium ABG Glucose Oxyhemoglobin Carboxyhemoglobin Sodium Potassium 3.2 L Chloride 112.4 H Carbon Dioxide 21 L BUN Creatinine 0.7 L Glucose 128 H POC Glucose 120 H Lactic Acid Calcium Phosphorus Magnesium Total Bilirubin Direct Bilirubin AST Total Creatine Kinase C-Reactive Protein NT-Pro-B Natriuret Pep Total Protein Albumin Triglycerides Arterial Blood Glucose Urine WBC (Auto) Salicylates Acetaminophen 05/31/21 05/31/21 05/31/21 04:00 11:50 16:16 WBC RBC Hgb Hct MCH MCHC RDW Plt Count Lymph % (Auto) [place] % (Auto) [place] # (Auto) Seg Neutrophils % Seg Neuts % (Manual) Lymphocytes % (Manual) Seg Neutrophils # Seg Neutrophils # Man Lymphocytes # (Manual) PT INR Heparin Anti-Xa Level ABG pH POC ABG pCO2 POC ABG pO2 ABG pO2 ABG HCO3 ABG O2 Saturation ABG Base Excess ABG Hemoglobin ABG Oxyhemoglobin ABG Potassium ABG Glucose Oxyhemoglobin Carboxyhemoglobin Sodium 148 H Potassium Chloride 114.8 H Carbon Dioxide BUN Creatinine Glucose 151 H POC Glucose 123 H 107 H Lactic Acid Calcium Phosphorus Magnesium Total Bilirubin Direct Bilirubin AST Total Creatine Kinase C-Reactive Protein NT-Pro-B Natriuret Pep Total Protein Albumin Triglycerides Arterial Blood Glucose Urine WBC (Auto) Salicylates Acetaminophen 06/01/21 06/01/21 06/01/21 02:55 04:10 04:10 WBC 16.5 H RBC Hgb Hct MCH MCHC RDW 16.0 H Plt Count Lymph % (Auto) [place] % (Auto) [place] # (Auto) Seg Neutrophils % Seg Neuts % (Manual) Lymphocytes % (Manual) Seg Neutrophils # Seg Neutrophils # Man Lymphocytes # (Manual) PT INR Heparin Anti-Xa Level ABG pH 7.334 L POC ABG pCO2 POC ABG pO2 ABG pO2 ABG HCO3 26.1 H ABG O2 Saturation ABG Base Excess ABG Hemoglobin 12.6 L ABG Oxyhemoglobin ABG Potassium ABG Glucose Oxyhemoglobin 93.1 L Carboxyhemoglobin Sodium 148 H Potassium 3.4 L Chloride 108.8 H Carbon Dioxide BUN Creatinine Glucose 113 H POC Glucose Lactic Acid Calcium Phosphorus Magnesium Total Bilirubin Direct Bilirubin AST Total Creatine Kinase C-Reactive Protein NT-Pro-B Natriuret Pep Total Protein Albumin Triglycerides Arterial Blood Glucose Urine WBC (Auto) Salicylates Acetaminophen 06/01/21 06/01/21 06/02/21 12:46 15:30 05:42 WBC RBC Hgb Hct MCH MCHC RDW Plt Count Lymph % (Auto) [place] % (Auto) [place] # (Auto) Seg Neutrophils % Seg Neuts % (Manual) Lymphocytes % (Manual) Seg Neutrophils # Seg Neutrophils # Man Lymphocytes # (Manual) PT INR Heparin Anti-Xa Level ABG pH POC ABG pCO2 POC ABG pO2 ABG pO2 114.5 H 141.2 H ABG HCO3 29.6 H 30.6 H ABG O2 Saturation ABG Base Excess 4.5 H 4.1 H ABG Hemoglobin 11.8 L 12.0 L ABG Oxyhemoglobin ABG Potassium ABG Glucose Oxyhemoglobin Carboxyhemoglobin Sodium Potassium Chloride Carbon Dioxide BUN Creatinine Glucose POC Glucose 119 H Lactic Acid Calcium Phosphorus Magnesium Total Bilirubin Direct Bilirubin AST Total Creatine Kinase C-Reactive Protein NT-Pro-B Natriuret Pep Total Protein Albumin Triglycerides Arterial Blood Glucose Urine WBC (Auto) Salicylates Acetaminophen 06/02/21 06/02/21 06/02/21 07:41 07:41 07:41 WBC 17.4 H RBC Hgb 11.1 L Hct 34.3 L MCH MCHC RDW 15.9 H Plt Count Lymph % (Auto) [place] % (Auto) [place] # (Auto) Seg Neutrophils % Seg Neuts % (Manual) Lymphocytes % (Manual) Seg Neutrophils # Seg Neutrophils # Man Lymphocytes # (Manual) PT INR Heparin Anti-Xa Level ABG pH POC ABG pCO2 POC ABG pO2 ABG pO2 ABG HCO3 ABG O2 Saturation ABG Base Excess ABG Hemoglobin ABG Oxyhemoglobin ABG Potassium ABG Glucose Oxyhemoglobin Carboxyhemoglobin Sodium 150 H Potassium Chloride 111.8 H Carbon Dioxide BUN Creatinine Glucose POC Glucose Lactic Acid Calcium Phosphorus Magnesium Total Bilirubin 3.30 H Direct Bilirubin 2.4 H AST 48 H Total Creatine Kinase C-Reactive Protein NT-Pro-B Natriuret Pep Total Protein 6.1 L Albumin 2.1 L Triglycerides Arterial Blood Glucose Urine WBC (Auto) Salicylates Acetaminophen 06/02/21 06/02/21 06/03/21 20:00 23:30 08:29 WBC 12.2 H RBC Hgb 11.7 L Hct MCH 27 L MCHC 31 L RDW 15.4 H Plt Count Lymph % (Auto) [place] % (Auto) [place] # (Auto) Seg Neutrophils % Seg Neuts % (Manual) Lymphocytes % (Manual) Seg Neutrophils # Seg Neutrophils # Man Lymphocytes # (Manual) PT INR Heparin Anti-Xa Level ABG pH POC ABG pCO2 POC ABG pO2 ABG pO2 ABG HCO3 ABG O2 Saturation ABG Base Excess ABG Hemoglobin ABG Oxyhemoglobin ABG Potassium ABG Glucose Oxyhemoglobin Carboxyhemoglobin Sodium Potassium Chloride 111.1 H Carbon Dioxide BUN Creatinine 0.7 L Glucose 105 H POC Glucose 112 H Lactic Acid Calcium 8.3 L Phosphorus Magnesium Total Bilirubin 2.90 H Direct Bilirubin AST 53 H Total Creatine Kinase C-Reactive Protein NT-Pro-B Natriuret Pep Total Protein 6.2 L Albumin 1.8 L Triglycerides Arterial Blood Glucose Urine WBC (Auto) Salicylates Acetaminophen 06/03/21 06/03/21 06/04/21 Unknown Unknown 04:00 WBC RBC Hgb 10.2 L Hct 31.9 L D MCH MCHC RDW Plt Count Lymph % (Auto) [place] % (Auto) [place] # (Auto) Seg Neutrophils % Seg Neuts % (Manual) Lymphocytes % (Manual) Seg Neutrophils # Seg Neutrophils # Man Lymphocytes # (Manual) PT 16.7 H INR 1.22 H Heparin Anti-Xa Level ABG pH POC ABG pCO2 51.5 H POC ABG pO2 61.7 L ABG pO2 ABG HCO3 ABG O2 Saturation ABG Base Excess ABG Hemoglobin ABG Oxyhemoglobin 90.9 L ABG Potassium ABG Glucose Oxyhemoglobin Carboxyhemoglobin 1.6 H Sodium Potassium Chloride Carbon Dioxide BUN Creatinine Glucose POC Glucose Lactic Acid Calcium Phosphorus Magnesium Total Bilirubin Direct Bilirubin AST Total Creatine Kinase C-Reactive Protein NT-Pro-B Natriuret Pep Total Protein Albumin Triglycerides Arterial Blood Glucose Urine WBC (Auto) Salicylates Acetaminophen 06/04/21 06/04/21 06/04/21 04:10 04:10 04:10 WBC 11.7 H RBC Hgb 11.2 L Hct MCH MCHC 31 L RDW 15.8 H Plt Count 447 H Lymph % (Auto) [place] % (Auto) [place] # (Auto) Seg Neutrophils % Seg Neuts % (Manual) Lymphocytes % (Manual) Seg Neutrophils # Seg Neutrophils # Man Lymphocytes # (Manual) PT 15.8 H INR 1.14 H Heparin Anti-Xa Level ABG pH POC ABG pCO2 POC ABG pO2 ABG pO2 ABG HCO3 ABG O2 Saturation ABG Base Excess ABG Hemoglobin ABG Oxyhemoglobin ABG Potassium ABG Glucose Oxyhemoglobin Carboxyhemoglobin Sodium 146 H Potassium Chloride 109.4 H Carbon Dioxide BUN Creatinine 0.6 L Glucose 122 H POC Glucose Lactic Acid Calcium Phosphorus Magnesium Total Bilirubin Direct Bilirubin AST Total Creatine Kinase C-Reactive Protein NT-Pro-B Natriuret Pep Total Protein Albumin Triglycerides 161 H Arterial Blood Glucose Urine WBC (Auto) Salicylates Acetaminophen 06/04/21 06/05/21 06/05/21 05:16 04:00 04:00 WBC RBC Hgb 11.3 L Hct 34.9 L MCH MCHC RDW 16.0 H Plt Count 515 H Lymph % (Auto) [place] % (Auto) [place] # (Auto) Seg Neutrophils % Seg Neuts % (Manual) Lymphocytes % (Manual) Seg Neutrophils # Seg Neutrophils # Man Lymphocytes # (Manual) PT INR Heparin Anti-Xa Level ABG pH POC ABG pCO2 POC ABG pO2 ABG pO2 ABG HCO3 ABG O2 Saturation ABG Base Excess ABG Hemoglobin ABG Oxyhemoglobin ABG Potassium ABG Glucose Oxyhemoglobin Carboxyhemoglobin Sodium Potassium 3.5 L Chloride Carbon Dioxide BUN 7 L Creatinine 0.6 L Glucose 131 H POC Glucose 107 H Lactic Acid Calcium Phosphorus Magnesium Total Bilirubin Direct Bilirubin AST Total Creatine Kinase C-Reactive Protein NT-Pro-B Natriuret Pep Total Protein Albumin Triglycerides Arterial Blood Glucose Urine WBC (Auto) Salicylates Acetaminophen 06/05/21 06/05/21 04:00 05:32 WBC RBC Hgb Hct MCH MCHC RDW Plt Count Lymph % (Auto) [place] % (Auto) [place] # (Auto) Seg Neutrophils % Seg Neuts % (Manual) Lymphocytes % (Manual) Seg Neutrophils # Seg Neutrophils # Man Lymphocytes # (Manual) PT INR Heparin Anti-Xa Level < 0.10 L ABG pH POC ABG pCO2 POC ABG pO2 ABG pO2 ABG HCO3 ABG O2 Saturation ABG Base Excess ABG Hemoglobin ABG Oxyhemoglobin ABG Potassium ABG Glucose Oxyhemoglobin Carboxyhemoglobin Sodium Potassium Chloride Carbon Dioxide BUN Creatinine Glucose POC Glucose 123 H Lactic Acid Calcium Phosphorus Magnesium Total Bilirubin Direct Bilirubin AST Total Creatine Kinase C-Reactive Protein NT-Pro-B Natriuret Pep Total Protein Albumin Triglycerides Arterial Blood Glucose Urine WBC (Auto) Salicylates Acetaminophen Allied health notes reviewed: nursing
[2021-06-05] MEDS: MIDODRINE 5 MG TAB PO SCH ×3 (10:06→17:07)
[2021-06-05] MEDS: FOLBEE PLUS CZ (FOLIC ACID/VIT BCOMP&C/CU/ZNOX) PO SCH (10:50)
[2021-06-05] MEDS: SENNOSIDES/DOCUSATE SODIUM 8.6/50 MG TAB FEEDTUBE SCH ×2 (10:50→22:09)
[2021-06-05] MEDS ORDERED: POTASSIUM CHLORIDE 20 MEQ PACKET FEEDTUBE ONE (11:22)
--- NOTE | 2021-06-05 14:13 | Progress Note ---
Assessment and Plan 40-year-old male status post percutaneous tracheostomy, fiberoptic bronchoscopy, PEG tube placement, POD 1 Plan: 1. vent management per ICU team 2. may remove tracheostomy skin sutures POD8 3. continue TF via PEG as tolerated 4. tracheostomy care as per protocol Will s/o. Thank you, please call with questions or concerns Evaluation and treatment of this patient was during the time of the national and state emergency arising from COVID19 coronavirus pandemic. Treatment and procedures performed meet the current and available best practice and guidelines for patient during the COVID pandemic. Subjective Date of service: 06/05/21 Narrative: Patient seen and examined. No change in overall condition. Tolerating tube feeds via PEG. Objective Vital Signs - 12hr 06/05/21 06/05/21 06/05/21 02:15 02:30 02:45 Temperature Pulse Rate 130 H 128 H 128 H Pulse Rate [ From Monitor] Respiratory 17 20 30 H Rate Blood Pressure 150/75 160/93 160/93 O2 Sat by Pulse 98 96 98 Oximetry O2 Sat by Pulse Oximetry [ Assessment] 06/05/21 06/05/21 06/05/21 03:01 03:15 03:30 Temperature Pulse Rate 128 H 124 H 120 H Pulse Rate [ From Monitor] Respiratory 14 20 24 Rate Blood Pressure 153/84 136/76 143/71 O2 Sat by Pulse 98 98 98 Oximetry O2 Sat by Pulse Oximetry [ Assessment] 06/05/21 06/05/21 06/05/21 03:45 03:46 03:47 Temperature Pulse Rate 119 H 122 H Pulse Rate [ From Monitor] Respiratory 25 H Rate Blood Pressure 144/69 144/69 O2 Sat by Pulse 98 98 Oximetry O2 Sat by Pulse 100 Oximetry [ Assessment] 06/05/21 06/05/21 06/05/21 03:51 03:56 04:00 Temperature 98.3 F 97.7 F Pulse Rate 105 H Pulse Rate [ 116 H From Monitor] Respiratory 23 Rate Blood Pressure 125/60 O2 Sat by Pulse 97 Oximetry O2 Sat by Pulse Oximetry [ Assessment] 06/05/21 06/05/21 06/05/21 04:15 04:30 04:45 Temperature Pulse Rate 128 H 138 H 138 H Pulse Rate [ From Monitor] Respiratory 21 15 22 Rate Blood Pressure 146/76 164/95 164/95 O2 Sat by Pulse 100 99 98 Oximetry O2 Sat by Pulse Oximetry [ Assessment] 06/05/21 06/05/21 06/05/21 05:01 05:15 05:31 Temperature Pulse Rate 131 H 124 H 129 H Pulse Rate [ From Monitor] Respiratory 18 21 17 Rate Blood Pressure 157/76 157/76 144/76 O2 Sat by Pulse 98 97 100 Oximetry O2 Sat by Pulse Oximetry [ Assessment] 06/05/21 06/05/21 06/05/21 05:45 06:01 06:15 Temperature Pulse Rate 127 H 128 H 123 H Pulse Rate [ From Monitor] Respiratory 17 26 H 35 H Rate Blood Pressure 144/76 160/82 160/82 O2 Sat by Pulse 97 98 97 Oximetry O2 Sat by Pulse Oximetry [ Assessment] 06/05/21 06/05/21 06/05/21 06:31 06:45 07:01 Temperature Pulse Rate 116 H 120 H 123 H Pulse Rate [ From Monitor] Respiratory 29 H 21 14 Rate Blood Pressure 150/69 150/69 145/70 O2 Sat by Pulse 96 98 99 Oximetry O2 Sat by Pulse Oximetry [ Assessment] 06/05/21 06/05/21 06/05/21 07:15 07:31 07:45 Temperature Pulse Rate 124 H 120 H 130 H Pulse Rate [ From Monitor] Respiratory 28 H 24 19 Rate Blood Pressure 145/70 138/68 146/84 O2 Sat by Pulse 99 98 99 Oximetry O2 Sat by Pulse Oximetry [ Assessment] 06/05/21 06/05/21 06/05/21 08:00 08:08 08:15 Temperature 100.6 F H Pulse Rate 129 H 127 H 122 H Pulse Rate [ 127 H From Monitor] Respiratory 14 16 Rate Blood Pressure 152/86 152/86 152/86 O2 Sat by Pulse 98 98 98 Oximetry O2 Sat by Pulse Oximetry [ Assessment] 06/05/21 06/05/21 06/05/21 08:31 08:45 09:00 Temperature Pulse Rate 124 H 119 H 125 H Pulse Rate [ From Monitor] Respiratory 27 H 27 H 24 Rate Blood Pressure 144/68 131/73 139/71 O2 Sat by Pulse 97 96 98 Oximetry O2 Sat by Pulse Oximetry [ Assessment] 06/05/21 06/05/21 06/05/21 09:15 09:30 09:45 Temperature Pulse Rate 120 H 119 H 117 H Pulse Rate [ From Monitor] Respiratory 31 H 34 H 32 H Rate Blood Pressure 133/68 131/75 130/75 O2 Sat by Pulse 95 96 97 Oximetry O2 Sat by Pulse Oximetry [ Assessment] 06/05/21 06/05/21 06/05/21 10:00 10:15 10:30 Temperature Pulse Rate 110 H 90 84 Pulse Rate [ From Monitor] Respiratory 25 H 27 H 27 H Rate Blood Pressure 116/61 116/61 90/45 O2 Sat by Pulse 97 94 94 Oximetry O2 Sat by Pulse Oximetry [ Assessment] 06/05/21 06/05/21 06/05/21 10:45 11:00 11:15 Temperature Pulse Rate 86 82 86 Pulse Rate [ From Monitor] Respiratory 26 H 25 H 22 Rate Blood Pressure 94/45 100/44 95/46 O2 Sat by Pulse 95 95 96 Oximetry O2 Sat by Pulse Oximetry [ Assessment] 06/05/21 06/05/21 06/05/21 11:30 11:45 11:57 Temperature Pulse Rate 89 113 H 98 H Pulse Rate [ From Monitor] Respiratory 25 H 56 H Rate Blood Pressure 95/49 95/49 104/62 O2 Sat by Pulse 96 97 Oximetry O2 Sat by Pulse Oximetry [ Assessment] 06/05/21 06/05/21 06/05/21 12:00 12:15 12:31 Temperature 98.8 F Pulse Rate 96 H 100 H 125 H Pulse Rate [ 129 H From Monitor] Respiratory 25 H 25 H 28 H Rate Blood Pressure 101/48 101/49 101/49 O2 Sat by Pulse 96 96 97 Oximetry O2 Sat by Pulse Oximetry [ Assessment] 06/05/21 06/05/21 12:45 13:01 Temperature Pulse Rate 130 H 133 H Pulse Rate [ From Monitor] Respiratory 14 18 Rate Blood Pressure 130/86 143/89 O2 Sat by Pulse 99 100 Oximetry O2 Sat by Pulse Oximetry [ Assessment] - General physical appearance Narrative Exam: Gen.: Awake on vent but does not follow commands, sedated. No apparent distress ENT: Trachea midline. Tracheostomy in place with no signs of bleeding. No lymphadenopathy. No scleral icterus or conjunctival pallor CV: S1, S2 present Respiratory: No audible wheezes Abdomen: Soft, nondistended, nontender. PEG tube in place with bumper at 4 at skin, no bleeding. No rebound, rigidity, guarding Extremities: Bilateral lower extremity edema. - Labs 06/05/21 04:00 06/05/21 04:00 Diabetes panel 06/05/21 Range/Units 04:00 Sodium 142 (137-145) mmol/L Potassium 3.5 L (3.6-5.0) mmol/L Chloride 106.1 (98-107) mmol/L Carbon Dioxide 25 (22-30) mmol/L BUN 7 L (9-20) mg/dL Creatinine 0.6 L (0.8-1.3) mg/dL Glucose 131 H (75-100) mg/dL Calcium 8.7 (8.4-10.2) mg/dL Calcium panel 06/05/21 Range/Units 04:00 Calcium 8.7 (8.4-10.2) mg/dL Pituitary panel 06/05/21 Range/Units 04:00 Sodium 142 (137-145) mmol/L Potassium 3.5 L (3.6-5.0) mmol/L Chloride 106.1 (98-107) mmol/L Carbon Dioxide 25 (22-30) mmol/L BUN 7 L (9-20) mg/dL Creatinine 0.6 L (0.8-1.3) mg/dL Glucose 131 H (75-100) mg/dL Calcium 8.7 (8.4-10.2) mg/dL Adrenal panel 06/05/21 Range/Units 04:00 Sodium 142 (137-145) mmol/L Potassium 3.5 L (3.6-5.0) mmol/L Chloride 106.1 (98-107) mmol/L Carbon Dioxide 25 (22-30) mmol/L BUN 7 L (9-20) mg/dL Creatinine 0.6 L (0.8-1.3) mg/dL Glucose 131 H (75-100) mg/dL Calcium 8.7 (8.4-10.2) mg/dL
[2021-06-05] MEDS: FAMOTIDINE 20 MG TAB FEEDTUBE SCH (22:10)
[2021-06-06] MEDS: fentaNYL DRIP Premix 2,000 MCG/100 ML BAG IV SCH ×3 (01:45→22:15)
--- NOTE | 2021-06-06 05:48 | XRay Report ---
CHEST 1 VIEW 06/06/2021 4:39 AM INDICATION / CLINICAL INFORMATION: Follow-up respiratory failure. COMPARISON: Yesterday. FINDINGS: SUPPORT DEVICES: The position of the tracheostomy tube has not changed. HEART / MEDIASTINUM: Cardiomegaly is stable. LUNGS / PLEURA: Parenchymal opacities in both lower lung zones are again identified with slight impro vement on the right. No new abnormality. No pneumothorax. ADDITIONAL FINDINGS: No significant additional findings. IMPRESSION: Bibasilar parenchymal opacities with slight improvement on the right since yesterday. Signer Name: Bentley Kay MD Signed: 06/06/2021 5:43 AM Workstation Name: [id number]
[2021-06-06] MEDS: AMPICILLIN/SULBACTA 3GM/100ML 3 GM/100 ML BAG IV SCH ×4 (05:52→23:17)
[2021-06-06] MEDS: HEPARIN/ 0.45% NACL DRIP 25,000 UNIT/500 ML BAG IV SCH ×2 (06:16→22:21)
[2021-06-06 06:36] LABS: Hematocrit 33.6 % (35.5-45.6); Hemoglobin 10.7 gm/dl (11.8-15.2); Mean Corpuscular HGB Conc 32 % (32-34); Mean Corpuscular Volume 88 fl (84-94); Platelet Count 537 K/mm3 (140-440); Red Blood Count 3.81 M/mm3 (3.65-5.03); Red Cell Distribution Width 16.2 % (13.2-15.2)
[2021-06-06 06:57] LABS: Blood Urea Nitrogen 6 mg/dL (9-20); Calcium 7.7 mg/dL (8.4-10.2); Hemolysis Index 0
[2021-06-06 06:58] LABS: BUN/Creatinine Ratio 12
[2021-06-06] MEDS ORDERED: MAGNESIUM SULFATE 4 GM/100 ML BAG IV ONE (08:28)
[2021-06-06] MEDS: MIDODRINE 5 MG TAB PO SCH ×3 (08:29→15:16)
[2021-06-06] MEDS: FREE WATER PO SCH ×4 (09:48→22:10)
[2021-06-06] MEDS: POTASSIUM CHLORIDE 20 MEQ PACKET FEEDTUBE SCH ×2 (09:48→14:00)
[2021-06-06] MEDS: FOLBEE PLUS CZ (FOLIC ACID/VIT BCOMP&C/CU/ZNOX) PO SCH (09:48)
[2021-06-06] MEDS: SENNOSIDES/DOCUSATE SODIUM 8.6/50 MG TAB FEEDTUBE SCH ×2 (09:48→22:29)
--- NOTE | 2021-06-06 12:04 | Progress Note ---
Assessment and Plan 40 y/o male with suspected overdose and metabolic acidosis 06/06/21: Will start BID Seroquel today. Wean Diprovan off. Once off all jim tion, will attempt PSV trials. Placement. 06/05/21: Gain control of sedation and mental state. Feed per peg tube. Anticoagulation for DVT. Abx. Placement. 06/04/21: Trach and peg today. Wean sedation as tolerated once trached. once off all sedation can try PSV trials if patient will remain calm enough. Anticoagulation for DVT. MRI and head CT were negative. COntinue abx therapy. Guarded prognosis. 06/03/21: Surgery has seen and will schedule for trach and peg soon. IR consulted given acute DVT in upper ext and possible retained products. Will obtain CT of chest. Given mental status and no real answer with negative head CT, will obtain MRI. Will start empiric unasyn given secretions, odor and white count. Only on minimal vent settings. Await sputum culture. LFT's better. WIll place central line in groin. GUarded prognosis. 06/02/21: recheck LFT's. Consult surgery for trach and peg. Feed patient. Reviewed abdominal US from 05/27, unremarkable but if LFT's worse, may need to repeat or even consider CT of abdomen pelvis. 06/01/21: Reintubated today. Sedated. Spoke with mother over the phone. Given this is the third intubation in less than 10 days, will consult surgery for trach and peg. 05/31/21: Extubated and had some upper airway noise. RT gave racemic epi. Increased work of breathing but no desats so will try bipap therapy. If fails will be reintubated and trached. Keep NPO for now. Will need to change BB to IV while on bipap therapy. 05/28/21: Extubate again today once patient is more awake. Continue precedex to help with agitation. Will need swallow eval once extubated. Cards is seeing, await any new recs. spoke with them this morning and his cardiomyopathy and systolic heart failure are chronic with normal coronaries on a cath last year sometime in the [facility]. 05/27/21: Get patient to ICU as soon as possible to achieve adequate sedation and mental state control to insure successful extubation. AGree with Precedex 05/26/21: Attempt extubation today once all sedation is off. 05/25/21: follow up echo. Spoke with RT about ABG. States will be in system within the hour. Still pressors but on Precedex, Versed and Fent. needs to be COVID tested. BNP was >6k. Unable to diurese right now given pressor require ments but need to follow up echo. need to get patient upstairs as soon as possible. Spoke with charge nurse and they are working on this. 1. CXR shows cardiomegaly with some bibasilar changes. Could be fluid. Suggest swabbing for COVID. Check BNP and obtain 2D echo given heart size. 2. Minimal sedation to assess mental status 3. Wean pressors for MAPS >60 4. Follow up renal recs 5. No ABG prior to intubation. Echo should be a bubble study given degree of hypoxemia seen on ABG CCT 31 minutes. Subjective Date of service: 06/06/21 Principal diagnosis: Overdose Interval history: No acute events. Objective Vital Signs - 12hr 06/06/21 06/06/21 06/06/21 00:16 00:30 00:37 Temperature Pulse Rate 130 H 129 H 135 H Pulse Rate [ From Monitor] Respiratory 17 18 Rate Blood Pressure 139/64 152/79 160/90 O2 Sat by Pulse 100 99 99 Oximetry O2 Sat by Pulse Oximetry [ Assessment] 06/06/21 06/06/21 06/06/21 00:45 01:00 01:16 Temperature Pulse Rate 132 H 127 H 122 H Pulse Rate [ From Monitor] Respiratory 15 14 13 Rate Blood Pressure 151/84 151/84 161/69 O2 Sat by Pulse 100 100 99 Oximetry O2 Sat by Pulse Oximetry [ Assessment] 06/06/21 06/06/21 06/06/21 01:30 01:46 02:00 Temperature Pulse Rate 125 H 117 H 111 H Pulse Rate [ From Monitor] Respiratory 13 14 21 Rate Blood Pressure 158/89 139/83 139/83 O2 Sat by Pulse 100 99 98 Oximetry O2 Sat by Pulse Oximetry [ Assessment] 06/06/21 06/06/21 06/06/21 02:16 02:30 02:46 Temperature Pulse Rate 114 H 123 H 121 H Pulse Rate [ From Monitor] Respiratory 19 28 H 19 Rate Blood Pressure 138/91 138/91 153/67 O2 Sat by Pulse 100 100 100 Oximetry O2 Sat by Pulse Oximetry [ Assessment] 06/06/21 06/06/21 06/06/21 03:00 03:15 03:30 Temperature Pulse Rate 116 H 101 H 100 H Pulse Rate [ From Monitor] Respiratory 18 22 26 H Rate Blood Pressure 153/67 105/51 108/53 O2 Sat by Pulse 100 97 98 Oximetry O2 Sat by Pulse Oximetry [ Assessment] 06/06/21 06/06/21 06/06/21 03:45 03:56 04:00 Temperature 99.2 F Pulse Rate 94 H 92 H Pulse Rate [ 114 H From Monitor] Respiratory 25 H 25 H Rate Blood Pressure 106/50 105/49 O2 Sat by Pulse 98 98 Oximetry O2 Sat by Pulse Oximetry [ Assessment] 06/06/21 06/06/21 06/06/21 04:15 04:21 04:29 Temperature Pulse Rate 88 88 Pulse Rate [ From Monitor] Respiratory 23 Rate Blood Pressure 103/47 103/47 O2 Sat by Pulse 98 98 Oximetry O2 Sat by Pulse 100 Oximetry [ Assessment] 06/06/21 06/06/21 06/06/21 04:30 04:45 05:00 Temperature Pulse Rate 94 H 94 H 94 H Pulse Rate [ From Monitor] Respiratory 21 23 19 Rate Blood Pressure 113/52 108/52 116/53 O2 Sat by Pulse 99 98 100 Oximetry O2 Sat by Pulse Oximetry [ Assessment] 06/06/21 06/06/21 06/06/21 05:15 05:30 05:45 Temperature Pulse Rate 98 H 110 H 110 H Pulse Rate [ From Monitor] Respiratory 18 16 18 Rate Blood Pressure 120/57 120/57 121/67 O2 Sat by Pulse 100 100 100 Oximetry O2 Sat by Pulse Oximetry [ Assessment] 06/06/21 06/06/21 06/06/21 06:00 07:00 07:25 Temperature Pulse Rate 129 H 132 H 127 H Pulse Rate [ From Monitor] Respiratory 25 H 16 Rate Blood Pressure 121/67 156/85 149/77 O2 Sat by Pulse 100 99 100 Oximetry O2 Sat by Pulse Oximetry [ Assessment] 06/06/21 06/06/21 06/06/21 07:30 07:31 08:00 Temperature 98.7 F Pulse Rate 128 H 135 H Pulse Rate [ 135 H From Monitor] Respiratory 17 23 Rate Blood Pressure 149/77 163/77 O2 Sat by Pulse 100 100 Oximetry O2 Sat by Pulse 100 Oximetry [ Assessment] 06/06/21 06/06/21 06/06/21 08:30 09:00 09:30 Temperature Pulse Rate 120 H 109 H 115 H Pulse Rate [ From Monitor] Respiratory 14 25 H 27 H Rate Blood Pressure 143/90 138/73 127/71 O2 Sat by Pulse 99 97 99 Oximetry O2 Sat by Pulse Oximetry [ Assessment] 06/06/21 06/06/21 06/06/21 10:00 10:30 11:00 Temperature Pulse Rate 106 H 103 H 85 Pulse Rate [ From Monitor] Respiratory 23 27 H 24 Rate Blood Pressure 114/62 115/57 101/52 O2 Sat by Pulse 97 100 96 Oximetry O2 Sat by Pulse Oximetry [ Assessment] 06/06/21 11:08 Temperature Pulse Rate 83 Pulse Rate [ From Monitor] Respiratory Rate Blood Pressure 101/52 O2 Sat by Pulse 96 Oximetry O2 Sat by Pulse Oximetry [ Assessment] Constitutional: other (Arousable to verbal stimulation) ENT: oropharynx moist, other (Orally intubated) Ascultation: Bilateral: rhonchi Cardiovascular: regular rate and rhythm (With episodes of tachycardia) Gastrointestinal: normoactive bowel sounds, soft, non-tender CBC and BMP: 06/06/21 04:00 06/06/21 04:00 ABG, PT/INR, D-dimer: ABG ABG pH 7.406 (7.320-7.450) 06/04/21 04:00 POC ABG pCO2 51.5 mmHg (32.0-48.0) H 06/04/21 04:00 ABG pCO2 54.4 mm Hg 06/02/21 05:42 POC ABG pO2 61.7 mmHg (83-108) L 06/04/21 04:00 ABG pO2 141.2 mm Hg (80.0-90.0) H 06/02/21 05:42 POC ABG HCO3 31.6 06/04/21 04:00 ABG O2 Saturation 92.7 (0-100) 06/04/21 04:00 PT/INR, D-dimer PT 15.8 Sec. (12.2-14.9) H 06/04/21 04:10 INR 1.14 (0.87-1.13) H 06/04/21 04:10 Abnormal lab findings: Abnormal Labs 05/23/21 05/23/21 05/23/21 05:55 09:38 09:38 WBC RBC 5.09 H Hgb Hct 46.2 H MCH MCHC RDW Plt Count Lymph % (Auto) [place] % (Auto) [place] # (Auto) Seg Neutrophils % Seg Neuts % (Manual) Lymphocytes % (Manual) Seg Neutrophils # Seg Neutrophils # Man Lymphocytes # (Manual) PT INR Heparin Anti-Xa Level ABG pH 7.265 L POC ABG pCO2 POC ABG pO2 ABG pO2 ABG HCO3 ABG O2 Saturation 94.6 L ABG Base Excess -4.5 L ABG Hemoglobin ABG Oxyhemoglobin ABG Potassium ABG Glucose Oxyhemoglobin 92.3 L Carboxyhemoglobin Sodium Potassium Chloride Carbon Dioxide 20 L BUN Creatinine Glucose 147 H POC Glucose Lactic Acid Calcium Phosphorus Magnesium Total Bilirubin Direct Bilirubin AST Total Creatine Kinase C-Reactive Protein NT-Pro-B Natriuret Pep Total Protein Albumin 3.6 L Triglycerides Arterial Blood Glucose Urine WBC (Auto) Salicylates Acetaminophen 05/23/21 05/23/21 05/23/21 09:38 09:38 09:38 WBC RBC Hgb Hct MCH MCHC RDW Plt Count Lymph % (Auto) [place] % (Auto) [place] # (Auto) Seg Neutrophils % Seg Neuts % (Manual) Lymphocytes % (Manual) Seg Neutrophils # Seg Neutrophils # Man Lymphocytes # (Manual) PT INR Heparin Anti-Xa Level ABG pH POC ABG pCO2 POC ABG pO2 ABG pO2 ABG HCO3 ABG O2 Saturation ABG Base Excess ABG Hemoglobin ABG Oxyhemoglobin ABG Potassium ABG Glucose Oxyhemoglobin Carboxyhemoglobin Sodium Potassium Chloride Carbon Dioxide BUN Creatinine Glucose POC Glucose Lactic Acid Calcium Phosphorus Magnesium Total Bilirubin Direct Bilirubin AST Total Creatine Kinase C-Reactive Protein NT-Pro-B Natriuret Pep 6058 H Total Protein Albumin Triglycerides Arterial Blood Glucose Urine WBC (Auto) Salicylates < 0.3 L Acetaminophen 5.0 L 05/23/21 05/23/21 05/24/21 12:49 Unknown 03:44 WBC RBC Hgb Hct MCH MCHC RDW Plt Count Lymph % (Auto) [place] % (Auto) [place] # (Auto) Seg Neutrophils % Seg Neuts % (Manual) Lymphocytes % (Manual) Seg Neutrophils # Seg Neutrophils # Man Lymphocytes # (Manual) PT INR Heparin Anti-Xa Level ABG pH 7.208 L 7.241 L POC ABG pCO2 POC ABG pO2 ABG pO2 52.2 L ABG HCO3 ABG O2 Saturation 93.5 L 83.7 L ABG Base Excess -6.7 L -3.7 L ABG Hemoglobin ABG Oxyhemoglobin ABG Potassium 5.6 H ABG Glucose 53 L Oxyhemoglobin 91.1 L 81.1 L Carboxyhemoglobin Sodium Potassium Chloride Carbon Dioxide BUN Creatinine Glucose POC Glucose Lactic Acid Calcium Phosphorus Magnesium Total Bilirubin Direct Bilirubin AST Total Creatine Kinase C-Reactive Protein NT-Pro-B Natriuret Pep Total Protein Albumin Triglycerides Arterial Blood Glucose 53 L Urine WBC (Auto) Salicylates Acetaminophen 05/24/21 05/24/21 05/24/21 05:14 05:14 09:35 WBC 23.3 H RBC 5.23 H Hgb Hct 47.3 H MCH MCHC RDW 15.3 H Plt Count Lymph % (Auto) [place] % (Auto) [place] # (Auto) Seg Neutrophils % Seg Neuts % (Manual) 12.0 L Lymphocytes % (Manual) 3.0 L Seg Neutrophils # Seg Neutrophils # Man Lymphocytes # (Manual) 0.7 L PT INR Heparin Anti-Xa Level ABG pH POC ABG pCO2 POC ABG pO2 ABG pO2 ABG HCO3 ABG O2 Saturation ABG Base Excess ABG Hemoglobin ABG Oxyhemoglobin ABG Potassium ABG Glucose Oxyhemoglobin Carboxyhemoglobin Sodium Potassium 6.3 H* D Chloride 107.3 H Carbon Dioxide 20 L BUN 33 H Creatinine 3.5 H D Glucose 56 L POC Glucose Lactic Acid Calcium Phosphorus Magnesium Total Bilirubin 1.90 H Direct Bilirubin AST Total Creatine Kinase 556 H C-Reactive Protein NT-Pro-B Natriuret Pep Total Protein 4.9 L D Albumin 2.8 L Triglycerides Arterial Blood Glucose Urine WBC (Auto) Salicylates Acetaminophen 05/24/21 05/24/21 05/25/21 19:45 Unknown 04:23 WBC 20.1 H RBC Hgb Hct MCH MCHC 31 L RDW 15.5 H Plt Count Lymph % (Auto) [place] % (Auto) [place] # (Auto) Seg Neutrophils % Seg Neuts % (Manual) 94.0 H Lymphocytes % (Manual) 5.0 L Seg Neutrophils # Seg Neutrophils # Man 18.9 H Lymphocytes # (Manual) 1.0 L PT INR Heparin Anti-Xa Level ABG pH POC ABG pCO2 POC ABG pO2 ABG pO2 ABG HCO3 ABG O2 Saturation ABG Base Excess ABG Hemoglobin ABG Oxyhemoglobin ABG Potassium ABG Glucose Oxyhemoglobin Carboxyhemoglobin Sodium Potassium 5.7 H Chloride 108.9 H Carbon Dioxide 21 L BUN 36 H Creatinine 2.6 H Glucose 108 H POC Glucose Lactic Acid Calcium Phosphorus Magnesium Total Bilirubin Direct Bilirubin AST Total Creatine Kinase C-Reactive Protein NT-Pro-B Natriuret Pep Total Protein Albumin Triglycerides Arterial Blood Glucose Urine WBC (Auto) 78.0 H Salicylates Acetaminophen 05/25/21 05/25/21 05/25/21 04:23 09:14 11:46 WBC RBC Hgb Hct MCH MCHC RDW Plt Count Lymph % (Auto) [place] % (Auto) [place] # (Auto) Seg Neutrophils % Seg Neuts % (Manual) Lymphocytes % (Manual) Seg Neutrophils # Seg Neutrophils # Man Lymphocytes # (Manual) PT INR Heparin Anti-Xa Level ABG pH POC ABG pCO2 POC ABG pO2 ABG pO2 ABG HCO3 ABG O2 Saturation ABG Base Excess ABG Hemoglobin ABG Oxyhemoglobin ABG Potassium ABG Glucose Oxyhemoglobin Carboxyhemoglobin Sodium Potassium Chloride 111.4 H Carbon Dioxide 18 L BUN 33 H Creatinine 1.9 H Glucose 121 H POC Glucose Lactic Acid 2.40 H* 2.60 H* Calcium Phosphorus Magnesium Total Bilirubin Direct Bilirubin AST Total Creatine Kinase C-Reactive Protein NT-Pro-B Natriuret Pep Total Protein Albumin Triglycerides Arterial Blood Glucose Urine WBC (Auto) Salicylates Acetaminophen 05/25/21 05/26/21 05/26/21 18:00 03:16 05:55 WBC 22.0 H RBC Hgb Hct MCH MCHC RDW 15.3 H Plt Count Lymph % (Auto) [place] % (Auto) [place] # (Auto) Seg Neutrophils % Seg Neuts % (Manual) 96.0 H Lymphocytes % (Manual) 2.0 L Seg Neutrophils # Seg Neutrophils # Man 21.1 H Lymphocytes # (Manual) 0.4 L PT INR Heparin Anti-Xa Level ABG pH POC ABG pCO2 POC ABG pO2 ABG pO2 208.2 H ABG HCO3 ABG O2 Saturation 99.3 H ABG Base Excess -2.7 L -2.6 L ABG Hemoglobin 13.7 L 13.0 L ABG Oxyhemoglobin ABG Potassium ABG Glucose Oxyhemoglobin 94.8 L Carboxyhemoglobin Sodium Potassium Chloride Carbon Dioxide BUN Creatinine Glucose POC Glucose Lactic Acid Calcium Phosphorus Magnesium Total Bilirubin Direct Bilirubin AST Total Creatine Kinase C-Reactive Protein NT-Pro-B Natriuret Pep Total Protein Albumin Triglycerides Arterial Blood Glucose Urine WBC (Auto) Salicylates Acetaminophen 05/26/21 05/27/21 05/27/21 05:55 03:18 03:18 WBC 21.5 H RBC Hgb Hct MCH MCHC RDW 15.5 H Plt Count Lymph % (Auto) [place] % (Auto) [place] # (Auto) Seg Neutrophils % Seg Neuts % (Manual) 92.0 H Lymphocytes % (Manual) 5.0 L Seg Neutrophils # Seg Neutrophils # Man 19.8 H Lymphocytes # (Manual) 1.1 L PT INR Heparin Anti-Xa Level ABG pH POC ABG pCO2 POC ABG pO2 ABG pO2 ABG HCO3 ABG O2 Saturation ABG Base Excess ABG Hemoglobin ABG Oxyhemoglobin ABG Potassium ABG Glucose Oxyhemoglobin Carboxyhemoglobin Sodium 148 H Potassium Chloride 111.3 H 113.8 H Carbon Dioxide 21 L 20 L BUN 23 H Creatinine Glucose 102 H 103 H POC Glucose Lactic Acid Calcium 8.3 L Phosphorus Magnesium Total Bilirubin 7.80 H Direct Bilirubin AST 112 H Total Creatine Kinase C-Reactive Protein NT-Pro-B Natriuret Pep Total Protein 5.2 L Albumin 2.9 L Triglycerides Arterial Blood Glucose Urine WBC (Auto) Salicylates Acetaminophen 05/27/21 05/28/21 05/28/21 03:18 05:55 10:05 WBC 11.4 H RBC Hgb Hct MCH MCHC RDW 15.5 H Plt Count Lymph % (Auto) 11.2 L [place] % (Auto) 8.6 H [place] # (Auto) 1.0 H Seg Neutrophils % 78.9 H Seg Neuts % (Manual) Lymphocytes % (Manual) Seg Neutrophils # 9.0 H Seg Neutrophils # Man Lymphocytes # (Manual) PT INR Heparin Anti-Xa Level ABG pH POC ABG pCO2 POC ABG pO2 ABG pO2 104.7 H ABG HCO3 ABG O2 Saturation ABG Base Excess -3.1 L ABG Hemoglobin 13.2 L ABG Oxyhemoglobin ABG Potassium ABG Glucose Oxyhemoglobin Carboxyhemoglobin Sodium Potassium Chloride Carbon Dioxide BUN Creatinine Glucose POC Glucose Lactic Acid Calcium Phosphorus Magnesium Total Bilirubin 7.90 H Direct Bilirubin 6.0 H AST 114 H Total Creatine Kinase C-Reactive Protein NT-Pro-B Natriuret Pep Total Protein 5.2 L Albumin 2.8 L Triglycerides Arterial Blood Glucose Urine WBC (Auto) Salicylates Acetaminophen 05/28/21 05/28/21 05/28/21 10:05 10:05 10:05 WBC RBC Hgb Hct MCH MCHC RDW Plt Count Lymph % (Auto) [place] % (Auto) [place] # (Auto) Seg Neutrophils % Seg Neuts % (Manual) Lymphocytes % (Manual) Seg Neutrophils # Seg Neutrophils # Man Lymphocytes # (Manual) PT INR Heparin Anti-Xa Level ABG pH POC ABG pCO2 POC ABG pO2 ABG pO2 ABG HCO3 ABG O2 Saturation ABG Base Excess ABG Hemoglobin ABG Oxyhemoglobin ABG Potassium ABG Glucose Oxyhemoglobin Carboxyhemoglobin Sodium 149 H Potassium Chloride 119.9 H Carbon Dioxide 18 L BUN Creatinine Glucose 103 H POC Glucose Lactic Acid 2.10 H* Calcium Phosphorus Magnesium Total Bilirubin Direct Bilirubin AST Total Creatine Kinase C-Reactive Protein 34.80 H NT-Pro-B Natriuret Pep Total Protein Albumin Triglycerides Arterial Blood Glucose Urine WBC (Auto) Salicylates Acetaminophen 05/29/21 05/29/21 05/29/21 03:00 05:02 05:02 WBC 13.0 H RBC Hgb Hct MCH MCHC RDW 15.4 H Plt Count Lymph % (Auto) [place] % (Auto) [place] # (Auto) Seg Neutrophils % Seg Neuts % (Manual) Lymphocytes % (Manual) Seg Neutrophils # Seg Neutrophils # Man Lymphocytes # (Manual) PT INR Heparin Anti-Xa Level ABG pH POC ABG pCO2 POC ABG pO2 ABG pO2 138.1 H ABG HCO3 ABG O2 Saturation ABG Base Excess -3.6 L ABG Hemoglobin 12.8 L ABG Oxyhemoglobin ABG Potassium ABG Glucose Oxyhemoglobin Carboxyhemoglobin Sodium 150 H Potassium Chloride 119.8 H Carbon Dioxide 18 L BUN Creatinine Glucose 109 H POC Glucose Lactic Acid Calcium Phosphorus 2.20 L Magnesium 1.50 L Total Bilirubin Direct Bilirubin AST Total Creatine Kinase C-Reactive Protein NT-Pro-B Natriuret Pep Total Protein Albumin Triglycerides Arterial Blood Glucose Urine WBC (Auto) Salicylates Acetaminophen 05/29/21 05/29/21 05/30/21 17:00 23:37 04:29 WBC RBC Hgb 10.8 L Hct 33.4 L MCH MCHC RDW 15.7 H Plt Count Lymph % (Auto) [place] % (Auto) [place] # (Auto) Seg Neutrophils % Seg Neuts % (Manual) Lymphocytes % (Manual) Seg Neutrophils # Seg Neutrophils # Man Lymphocytes # (Manual) PT INR Heparin Anti-Xa Level ABG pH POC ABG pCO2 POC ABG pO2 ABG pO2 ABG HCO3 ABG O2 Saturation ABG Base Excess ABG Hemoglobin ABG Oxyhemoglobin ABG Potassium ABG Glucose Oxyhemoglobin Carboxyhemoglobin Sodium Potassium Chloride Carbon Dioxide BUN Creatinine Glucose POC Glucose 114 H 122 H Lactic Acid Calcium Phosphorus Magnesium Total Bilirubin Direct Bilirubin AST Total Creatine Kinase C-Reactive Protein NT-Pro-B Natriuret Pep Total Protein Albumin Triglycerides Arterial Blood Glucose Urine WBC (Auto) Salicylates Acetaminophen 05/30/21 05/30/21 05/31/21 04:29 23:36 04:00 WBC 11.2 H RBC Hgb 10.9 L Hct 34.3 L MCH MCHC RDW 15.4 H Plt Count Lymph % (Auto) [place] % (Auto) [place] # (Auto) Seg Neutrophils % Seg Neuts % (Manual) Lymphocytes % (Manual) Seg Neutrophils # Seg Neutrophils # Man Lymphocytes # (Manual) PT INR Heparin Anti-Xa Level ABG pH POC ABG pCO2 POC ABG pO2 ABG pO2 ABG HCO3 ABG O2 Saturation ABG Base Excess ABG Hemoglobin ABG Oxyhemoglobin ABG Potassium ABG Glucose Oxyhemoglobin Carboxyhemoglobin Sodium Potassium 3.2 L Chloride 112.4 H Carbon Dioxide 21 L BUN Creatinine 0.7 L Glucose 128 H POC Glucose 120 H Lactic Acid Calcium Phosphorus Magnesium Total Bilirubin Direct Bilirubin AST Total Creatine Kinase C-Reactive Protein NT-Pro-B Natriuret Pep Total Protein Albumin Triglycerides Arterial Blood Glucose Urine WBC (Auto) Salicylates Acetaminophen 05/31/21 05/31/21 05/31/21 04:00 11:50 16:16 WBC RBC Hgb Hct MCH MCHC RDW Plt Count Lymph % (Auto) [place] % (Auto) [place] # (Auto) Seg Neutrophils % Seg Neuts % (Manual) Lymphocytes % (Manual) Seg Neutrophils # Seg Neutrophils # Man Lymphocytes # (Manual) PT INR Heparin Anti-Xa Level ABG pH POC ABG pCO2 POC ABG pO2 ABG pO2 ABG HCO3 ABG O2 Saturation ABG Base Excess ABG Hemoglobin ABG Oxyhemoglobin ABG Potassium ABG Glucose Oxyhemoglobin Carboxyhemoglobin Sodium 148 H Potassium Chloride 114.8 H Carbon Dioxide BUN Creatinine Glucose 151 H POC Glucose 123 H 107 H Lactic Acid Calcium Phosphorus Magnesium Total Bilirubin Direct Bilirubin AST Total Creatine Kinase C-Reactive Protein NT-Pro-B Natriuret Pep Total Protein Albumin Triglycerides Arterial Blood Glucose Urine WBC (Auto) Salicylates Acetaminophen 06/01/21 06/01/21 06/01/21 02:55 04:10 04:10 WBC 16.5 H RBC Hgb Hct MCH MCHC RDW 16.0 H Plt Count Lymph % (Auto) [place] % (Auto) [place] # (Auto) Seg Neutrophils % Seg Neuts % (Manual) Lymphocytes % (Manual) Seg Neutrophils # Seg Neutrophils # Man Lymphocytes # (Manual) PT INR Heparin Anti-Xa Level ABG pH 7.334 L POC ABG pCO2 POC ABG pO2 ABG pO2 ABG HCO3 26.1 H ABG O2 Saturation ABG Base Excess ABG Hemoglobin 12.6 L ABG Oxyhemoglobin ABG Potassium ABG Glucose Oxyhemoglobin 93.1 L Carboxyhemoglobin Sodium 148 H Potassium 3.4 L Chloride 108.8 H Carbon Dioxide BUN Creatinine Glucose 113 H POC Glucose Lactic Acid Calcium Phosphorus Magnesium Total Bilirubin Direct Bilirubin AST Total Creatine Kinase C-Reactive Protein NT-Pro-B Natriuret Pep Total Protein Albumin Triglycerides Arterial Blood Glucose Urine WBC (Auto) Salicylates Acetaminophen 06/01/21 06/01/21 06/02/21 12:46 15:30 05:42 WBC RBC Hgb Hct MCH MCHC RDW Plt Count Lymph % (Auto) [place] % (Auto) [place] # (Auto) Seg Neutrophils % Seg Neuts % (Manual) Lymphocytes % (Manual) Seg Neutrophils # Seg Neutrophils # Man Lymphocytes # (Manual) PT INR Heparin Anti-Xa Level ABG pH POC ABG pCO2 POC ABG pO2 ABG pO2 114.5 H 141.2 H ABG HCO3 29.6 H 30.6 H ABG O2 Saturation ABG Base Excess 4.5 H 4.1 H ABG Hemoglobin 11.8 L 12.0 L ABG Oxyhemoglobin ABG Potassium ABG Glucose Oxyhemoglobin Carboxyhemoglobin Sodium Potassium Chloride Carbon Dioxide BUN Creatinine Glucose POC Glucose 119 H Lactic Acid Calcium Phosphorus Magnesium Total Bilirubin Direct Bilirubin AST Total Creatine Kinase C-Reactive Protein NT-Pro-B Natriuret Pep Total Protein Albumin Triglycerides Arterial Blood Glucose Urine WBC (Auto) Salicylates Acetaminophen 06/02/21 06/02/21 06/02/21 07:41 07:41 07:41 WBC 17.4 H RBC Hgb 11.1 L Hct 34.3 L MCH MCHC RDW 15.9 H Plt Count Lymph % (Auto) [place] % (Auto) [place] # (Auto) Seg Neutrophils % Seg Neuts % (Manual) Lymphocytes % (Manual) Seg Neutrophils # Seg Neutrophils # Man Lymphocytes # (Manual) PT INR Heparin Anti-Xa Level ABG pH POC ABG pCO2 POC ABG pO2 ABG pO2 ABG HCO3 ABG O2 Saturation ABG Base Excess ABG Hemoglobin ABG Oxyhemoglobin ABG Potassium ABG Glucose Oxyhemoglobin Carboxyhemoglobin Sodium 150 H Potassium Chloride 111.8 H Carbon Dioxide BUN Creatinine Glucose POC Glucose Lactic Acid Calcium Phosphorus Magnesium Total Bilirubin 3.30 H Direct Bilirubin 2.4 H AST 48 H Total Creatine Kinase C-Reactive Protein NT-Pro-B Natriuret Pep Total Protein 6.1 L Albumin 2.1 L Triglycerides Arterial Blood Glucose Urine WBC (Auto) Salicylates Acetaminophen 06/02/21 06/02/21 06/03/21 20:00 23:30 08:29 WBC 12.2 H RBC Hgb 11.7 L Hct MCH 27 L MCHC 31 L RDW 15.4 H Plt Count Lymph % (Auto) [place] % (Auto) [place] # (Auto) Seg Neutrophils % Seg Neuts % (Manual) Lymphocytes % (Manual) Seg Neutrophils # Seg Neutrophils # Man Lymphocytes # (Manual) PT INR Heparin Anti-Xa Level ABG pH POC ABG pCO2 POC ABG pO2 ABG pO2 ABG HCO3 ABG O2 Saturation ABG Base Excess ABG Hemoglobin ABG Oxyhemoglobin ABG Potassium ABG Glucose Oxyhemoglobin Carboxyhemoglobin Sodium Potassium Chloride 111.1 H Carbon Dioxide BUN Creatinine 0.7 L Glucose 105 H POC Glucose 112 H Lactic Acid Calcium 8.3 L Phosphorus Magnesium Total Bilirubin 2.90 H Direct Bilirubin AST 53 H Total Creatine Kinase C-Reactive Protein NT-Pro-B Natriuret Pep Total Protein 6.2 L Albumin 1.8 L Triglycerides Arterial Blood Glucose Urine WBC (Auto) Salicylates Acetaminophen 06/03/21 06/03/21 06/04/21 Unknown Unknown 04:00 WBC RBC Hgb 10.2 L Hct 31.9 L D MCH MCHC RDW Plt Count Lymph % (Auto) [place] % (Auto) [place] # (Auto) Seg Neutrophils % Seg Neuts % (Manual) Lymphocytes % (Manual) Seg Neutrophils # Seg Neutrophils # Man Lymphocytes # (Manual) PT 16.7 H INR 1.22 H Heparin Anti-Xa Level ABG pH POC ABG pCO2 51.5 H POC ABG pO2 61.7 L ABG pO2 ABG HCO3 ABG O2 Saturation ABG Base Excess ABG Hemoglobin ABG Oxyhemoglobin 90.9 L ABG Potassium ABG Glucose Oxyhemoglobin Carboxyhemoglobin 1.6 H Sodium Potassium Chloride Carbon Dioxide BUN Creatinine Glucose POC Glucose Lactic Acid Calcium Phosphorus Magnesium Total Bilirubin Direct Bilirubin AST Total Creatine Kinase C-Reactive Protein NT-Pro-B Natriuret Pep Total Protein Albumin Triglycerides Arterial Blood Glucose Urine WBC (Auto) Salicylates Acetaminophen 06/04/21 06/04/21 06/04/21 04:10 04:10 04:10 WBC 11.7 H RBC Hgb 11.2 L Hct MCH MCHC 31 L RDW 15.8 H Plt Count 447 H Lymph % (Auto) [place] % (Auto) [place] # (Auto) Seg Neutrophils % Seg Neuts % (Manual) Lymphocytes % (Manual) Seg Neutrophils # Seg Neutrophils # Man Lymphocytes # (Manual) PT 15.8 H INR 1.14 H Heparin Anti-Xa Level ABG pH POC ABG pCO2 POC ABG pO2 ABG pO2 ABG HCO3 ABG O2 Saturation ABG Base Excess ABG Hemoglobin ABG Oxyhemoglobin ABG Potassium ABG Glucose Oxyhemoglobin Carboxyhemoglobin Sodium 146 H Potassium Chloride 109.4 H Carbon Dioxide BUN Creatinine 0.6 L Glucose 122 H POC Glucose Lactic Acid Calcium Phosphorus Magnesium Total Bilirubin Direct Bilirubin AST Total Creatine Kinase C-Reactive Protein NT-Pro-B Natriuret Pep Total Protein Albumin Triglycerides 161 H Arterial Blood Glucose Urine WBC (Auto) Salicylates Acetaminophen 06/04/21 06/05/21 06/05/21 05:16 04:00 04:00 WBC RBC Hgb 11.3 L Hct 34.9 L MCH MCHC RDW 16.0 H Plt Count 515 H Lymph % (Auto) [place] % (Auto) [place] # (Auto) Seg Neutrophils % Seg Neuts % (Manual) Lymphocytes % (Manual) Seg Neutrophils # Seg Neutrophils # Man Lymphocytes # (Manual) PT INR Heparin Anti-Xa Level ABG pH POC ABG pCO2 POC ABG pO2 ABG pO2 ABG HCO3 ABG O2 Saturation ABG Base Excess ABG Hemoglobin ABG Oxyhemoglobin ABG Potassium ABG Glucose Oxyhemoglobin Carboxyhemoglobin Sodium Potassium 3.5 L Chloride Carbon Dioxide BUN 7 L Creatinine 0.6 L Glucose 131 H POC Glucose 107 H Lactic Acid Calcium Phosphorus Magnesium Total Bilirubin Direct Bilirubin AST Total Creatine Kinase C-Reactive Protein NT-Pro-B Natriuret Pep Total Protein Albumin Triglycerides Arterial Blood Glucose Urine WBC (Auto) Salicylates Acetaminophen 06/05/21 06/05/21 06/05/21 04:00 05:32 11:20 WBC RBC Hgb Hct MCH MCHC RDW Plt Count Lymph % (Auto) [place] % (Auto) [place] # (Auto) Seg Neutrophils % Seg Neuts % (Manual) Lymphocytes % (Manual) Seg Neutrophils # Seg Neutrophils # Man Lymphocytes # (Manual) PT INR Heparin Anti-Xa Level < 0.10 L 0.21 L ABG pH POC ABG pCO2 POC ABG pO2 ABG pO2 ABG HCO3 ABG O2 Saturation ABG Base Excess ABG Hemoglobin ABG Oxyhemoglobin ABG Potassium ABG Glucose Oxyhemoglobin Carboxyhemoglobin Sodium Potassium Chloride Carbon Dioxide BUN Creatinine Glucose POC Glucose 123 H Lactic Acid Calcium Phosphorus Magnesium Total Bilirubin Direct Bilirubin AST Total Creatine Kinase C-Reactive Protein NT-Pro-B Natriuret Pep Total Protein Albumin Triglycerides Arterial Blood Glucose Urine WBC (Auto) Salicylates Acetaminophen 06/05/21 06/05/21 06/06/21 12:15 17:12 02:02 WBC RBC Hgb Hct MCH MCHC RDW Plt Count Lymph % (Auto) [place] % (Auto) [place] # (Auto) Seg Neutrophils % Seg Neuts % (Manual) Lymphocytes % (Manual) Seg Neutrophils # Seg Neutrophils # Man Lymphocytes # (Manual) PT INR Heparin Anti-Xa Level ABG pH POC ABG pCO2 POC ABG pO2 ABG pO2 ABG HCO3 ABG O2 Saturation ABG Base Excess ABG Hemoglobin ABG Oxyhemoglobin ABG Potassium ABG Glucose Oxyhemoglobin Carboxyhemoglobin Sodium Potassium Chloride Carbon Dioxide BUN Creatinine Glucose POC Glucose 120 H 119 H 130 H Lactic Acid Calcium Phosphorus Magnesium Total Bilirubin Direct Bilirubin AST Total Creatine Kinase C-Reactive Protein NT-Pro-B Natriuret Pep Total Protein Albumin Triglycerides Arterial Blood Glucose Urine WBC (Auto) Salicylates Acetaminophen 06/06/21 06/06/21 06/06/21 04:00 04:00 10:00 WBC RBC Hgb 10.7 L Hct 33.6 L MCH MCHC RDW 16.2 H Plt Count 537 H Lymph % (Auto) [place] % (Auto) [place] # (Auto) Seg Neutrophils % Seg Neuts % (Manual) Lymphocytes % (Manual) Seg Neutrophils # Seg Neutrophils # Man Lymphocytes # (Manual) PT INR Heparin Anti-Xa Level 0.14 L ABG pH POC ABG pCO2 POC ABG pO2 ABG pO2 ABG HCO3 ABG O2 Saturation ABG Base Excess ABG Hemoglobin ABG Oxyhemoglobin ABG Potassium ABG Glucose Oxyhemoglobin Carboxyhemoglobin Sodium 153 H D Potassium 3.4 L Chloride 115.1 H Carbon Dioxide BUN 6 L Creatinine 0.5 L Glucose 110 H POC Glucose Lactic Acid Calcium 7.7 L Phosphorus Magnesium 1.40 L Total Bilirubin Direct Bilirubin AST Total Creatine Kinase C-Reactive Protein NT-Pro-B Natriuret Pep Total Protein Albumin Triglycerides Arterial Blood Glucose Urine WBC (Auto) Salicylates Acetaminophen 06/06/21 11:31 WBC RBC Hgb Hct MCH MCHC RDW Plt Count Lymph % (Auto) [place] % (Auto) [place] # (Auto) Seg Neutrophils % Seg Neuts % (Manual) Lymphocytes % (Manual) Seg Neutrophils # Seg Neutrophils # Man Lymphocytes # (Manual) PT INR Heparin Anti-Xa Level ABG pH POC ABG pCO2 POC ABG pO2 ABG pO2 ABG HCO3 ABG O2 Saturation ABG Base Excess ABG Hemoglobin ABG Oxyhemoglobin ABG Potassium ABG Glucose Oxyhemoglobin Carboxyhemoglobin Sodium Potassium Chloride Carbon Dioxide BUN Creatinine Glucose POC Glucose 112 H Lactic Acid Calcium Phosphorus Magnesium Total Bilirubin Direct Bilirubin AST Total Creatine Kinase C-Reactive Protein NT-Pro-B Natriuret Pep Total Protein Albumin Triglycerides Arterial Blood Glucose Urine WBC (Auto) Salicylates Acetaminophen Allied health notes reviewed: nursing
[2021-06-06] MEDS: QUEtiapine 25 MG TAB PO SCH ×2 (12:15→22:30)
--- NOTE | 2021-06-06 13:37 | Progress Note ---
<NAUN RASHIDNina - Last Filed: 06/06/21 13:34> Assessment and Plan Assessment and plan: This is a 40-year-old male with HFrEF, methamphetamine and nicotine dependence admitted for drug overdose and acute metabolic encephalopathy. Patient was intubated in the emergency department for airway protection. Assessment and Plan Acute toxic metabolic encephalopathy, overdose, h/o polysubstance abuse -UDS positive for amphetamines -Sedated with Precedex, propofol, versed and fentayl gtt -CTH with no acute findings -MRI Brain with no acute findings except sinusitis -Started on seroquel -Maintain sleep-wake cycle -Reorientation as needed -Consider mental evaluation to assess for readiness to stop polysubstance abuse Acute hypoxic respiratory failure -Intubated on 05/23 in the ED for airway protection with 7.50 ETT at 24 at the lips and extubated 05/31 -Patient reintubated on 06/01 due to tachypnea and increased work of breathing with 7.50 ETT at 24 the lips -Vent settings: AC rate 20, tidal volume 350, FiO2 40, PEEP 8 -See RT notes for titration -surgery consulted for peg/trach -Pulmonary hygiene -SPO2 monitoring Acute right upper extremity DVT -Heparin drip -Titration per protocol -Noted on right upper extremity DVT Possible Retained foreign object in right upper extremity, ruled out -Noted by senior technical program manager -Vascular surgery consulted, appreciate recommendations -Bedside ultrasound by Dr. Adams completed who stated it appeared to be is fibrin sheath however -CT of upper extremity shows no retained object Acute kidney injury secondary to acute tubular necrosis (resolved), hypernatremia, hypokalemia, hyperchloremia, hypomagnesemia -BUN/creatinine increased to 3.5/33 -Nephrology consulted, appreciate recommendations -Strict intake and output -Maintain Fajardo catheter -Avoid nephrotoxic medications -Renally dose medications -Trend BMP -Free water flush increased -Replete potassium, mag Sepsis (POA), lactic acidosis, leukocytosis, sinusitis -Presented with febrile illness, lactic acidosis, leukocytosis now with hypotension -COVID-19 PCR negative -UA negative -Blood culture/urine culture no growth to date -Tracheal aspirate with beta-hemolytic strep group F -S/p ABX for 3 days -S/p vasopressor support -Monitor fever and WBC curve -Started on Unsyn HFrEF, cardiomegaly - Cardiology on consult, appreciated recommendations -Per cardiology -05/25/2021: Echo- EF 20 to 25%. Severe global hypokinesis of left ventricle. Left ventricle is moderately dilated. Doppler flow suggests impaired LV relaxation. Moderate mitral regurgitation. No pericardial effusion -08/04/2020: Cardiac cath- Angiographically normal coronary arteries. This is indicative of a nonischemic cardiomyopathy. Mildly elevated biventricular filling pressures with normal cardiac index -08/02/2020: Echo- EF 18%,Severe global LV hypokinesis. Normal LV diastolic function. LA mildly dilated. Moderate mitral regurgitation with an eccentric MR jet(s),No previous echocardiogram for comparison. -S/p IV Lasix -midodrine tid DVT/GI prophylaxis -Heparin gtt, PPI -SCD to bilateral lower extremities while in bed -Trend CBC -Transfuse for hemoglobin less than seven The high probability of a clinically significant, sudden or life threatening deterioration of the [multiple] system(s) required my full and direct attention, intervention and personal management. The aggregate critical care time was [60] minutes. This time is in addition to time spent performing reported procedures but includes the following: [x] Data Review and interpretation [x] Patient assessment and monitoring of vital signs [x] Documentation [x] Medication orders and management Disposition Plan: icu Total Time Spent with Patient (Minutes): 60 History Interval history: This is a 40-year-old male with methamphetamine and nicotine dependence who presented to the emergency department via EMS was called after the being found down and unresponsive by family. Per family patient "overdose on GHB." EMS administered intranasal Narcan without improvement in symptoms and transferred the patient to [facility] for further evaluation. Patient was intubated in the emergency department for airway protection. [facility] encephalopathy, hypothermia, respiratory failure with consults to [facility]. Hospital Course to date: 05/25/2021: Worsening interstitial infiltrates. unclear if this is a developing pneumonia from aspiration/volume overload. Empiric abx coverage. ECHO with bubble study ordered. Placed on iv abx. kidney function improving. 05/26/2021: Tachycardic on levo gtt, advised RN to titrate down as long as MAP > 65. HR improved on my follow up encounter. PCCM titrating vent down. Renal f unction improving....Cr now 1.3. No indication for PROSTHODONTIST/EDUCATOR at this time per nephro. 05/27/2021: Extubated yesterday however in respiratory distress, re-intubated. Patient has severe systolic heart failure. Cardiology consulted for severe systolic heart failure. Will need to discuss optimal strategy regarding diuresis. 05/28: Patient remains on the vent. Febrile overnight, no longer on IV abx, leukocytosis improved, will panculture patient for now hold off on IV Abx. D/W CCM plan to wean sedation, depends on patient's mental status possible extubation today. Patient with low EF 20 to 25%, IVF D/nickolas. FWF for hypernatrenia, repeat lab in the am. 05/29- With increased agitation and tachycardia, maxed out on precedex and fentanyl gtt. Patient appears to be in withdrawal, Ativan added. Remains febri le, off pressors this am, leukocytosis improved. Continue to f/u on culture data. Hypernatremia this am, on D5w per nephro, electrolyte repleted, repeat labs in the am 05/30: Patient very aggresive this am maxed on sedation, X1 dose of Geodeon ordered. Now on low dose Levophed, patient still with low grade fevers this am. Hypotension is probably r/t sedation. Recent cultures with NGTD, UA negative. Continue to monitor for now. Na improved, IVF off this and K repleted, repeat labs in the am. 05/31: Patient was extubated today, IV fluid discontinued, given Lasix per cardiology, increasing free water flush. Weaned off Levophed. Patient noted to be lethargic several hours post Precedex infusion discontinuation. Patient extubated to BiPAP after given racemic epinephrine. Patient remains lethargic and off of BiPAP will consider CT head in the a.m. 06/01: Patient remained on BiPAP overnight, given agitation as needed Haldol/Ativan and Benadryl given while patient remained maxed on Precedex. Given increased work of breathing and tachypnea patient was electively reintubated. Free water flushes/tube feeding/p.o. medications to restart upon confirmation of DHT. Lasix stopped per cardiology recommendations. CT head ordered. 06/02: Started on midodrine 3 times daily per cardiology as patient has soft blood pressures and required Levophed overnight. Upper extremity with PICC noted to have significant swelling and possible discoloration around insertion site. Ordered RN to remove PICC and use peripheral IVs as patient does not have any medications requiring central access at this time. Hypernatremia worsened however patient did not receive multiple doses of free water flush while on continuous BiPAP. [facility] made vent changes. Surgery consulted. 06/03: Patient noted to have an acute DVT in right upper extremity and started on heparin drip. soil science technical officer noted possible foreign object retained and vascular surgery was consulted. Obtain CT of upper extremity. Surgery was consulted for trach/PEG. Patient remains on max doses of fentanyl, propofol and Precedex. Versed added. Started on Unasyn. MRI brain ordered. 06/04: Patient received a trach/PEG today, remains on propofol, Versed, fentanyl. Heparin drip off and tube feeding off for surgery. 06/05: Tracheal aspirate grew Enterobacter which is sensitive to ampicillin which the patient was still on. Slight hypokalemia noted reduce repleted. Patient remains on Precedex, propofol and Versed for sedation. Bilateral soft restraints in place. [facility] will hold off weaning trials as patient is still not adequate sedated. Heparin drip resumed. 06/06: Started on Seroquel twice daily in efforts to wean off sedation. Hypernatremia and hyperchloremia noted and free water flush increased, potassium and magnesium repleted. Hospitalist Physical - Constitutional Vitals: Temp Pulse Resp BP Pulse Ox 99.0 F 86 25 H 102/51 100 06/06/21 12:00 06/06/21 12:00 06/06/21 12:00 06/06/21 12:00 06/06/21 12:00 General appearance: Present: obese, other (Intubated and sedated) - EENT Eyes: Present: PERRL, EOM intact ENT: hearing intact, dentition normal - Neck Neck: Present: normal ROM - Respiratory Respiratory effort: normal Respiratory: bilateral: diminished - Cardiovascular Rhythm: regular Heart Sounds: Present: S1 & S2. Absent: systolic murmur, diastolic murmur - Extremities Extremities: no ischemia, pulses intact, pulses symmetrical, No edema, normal temperature, normal color Peripheral Pulses: within normal limits - Abdominal General gastrointestinal: soft, non-tender, non-distended, normal bowel sounds - Integumentary Integumentary: Present: warm, dry - Psychiatric Psychiatric: cooperative, other - Neurologic Neurologic: moves all extremities, other (follows commands) - Allied Health Allied health notes reviewed: nursing, RT, social work HEART Score - HEART Score Troponin: Troponin T < 0.010 ng/mL (0.00-0.029) 05/23/21 09:38 Results - Labs CBC & Chem 7: 06/06/21 04:00 06/06/21 04:00 Labs: Laboratory Last Values WBC 11.0 K/mm3 (4.5-11.0) 06/06/21 04:00 RBC 3.81 M/mm3 (3.65-5.03) 06/06/21 04:00 Hgb 10.7 gm/dl (11.8-15.2) L 06/06/21 04:00 Hct 33.6 % (35.5-45.6) L 06/06/21 04:00 MCV 88 fl (84-94) 06/06/21 04:00 MCH 28 pg (28-32) 06/06/21 04:00 MCHC 32 % (32-34) 06/06/21 04:00 RDW 16.2 % (13.2-15.2) H 06/06/21 04:00 Plt Count 537 K/mm3 (140-440) H 06/06/21 04:00 Lymph % (Auto) 11.2 % (13.4-35.0) L 05/28/21 10:05 [place] % (Auto) 8.6 % (0.0-7.3) H 05/28/21 10:05 Eos % (Auto) 0.8 % (0.0-4.3) 05/28/21 10:05 Baso % (Auto) 0.5 % (0.0-1.8) 05/28/21 10:05 Lymph # (Auto) 1.3 K/mm3 (1.2-5.4) 05/28/21 10:05 [place] # (Auto) 1.0 K/mm3 (0.0-0.8) H 05/28/21 10:05 Eos # (Auto) 0.1 K/mm3 (0.0-0.4) 05/28/21 10:05 Baso # (Auto) 0.1 K/mm3 (0.0-0.1) 05/28/21 10:05 Add Manual Diff Complete 05/27/21 03:18 Total Counted 100 05/27/21 03:18 Seg Neutrophils % 78.9 % (40.0-70.0) H 05/28/21 10:05 Seg Neuts % (Manual) 92.0 % (40.0-70.0) H 05/27/21 03:18 Band Neutrophils % 0 % 05/27/21 03:18 Lymphocytes % (Manual) 5.0 % (13.4-35.0) L 05/27/21 03:18 Reactive Lymphs % (Man) 0 % 05/27/21 03:18 Monocytes % (Manual) 3.0 % (0.0-7.3) 05/27/21 03:18 Eosinophils % (Manual) 0 % (0.0-4.3) 05/27/21 03:18 Basophils % (Manual) 0 % (0.0-1.8) 05/27/21 03:18 Metamyelocytes % 0 % 05/27/21 03:18 Myelocytes % 0 % 05/27/21 03:18 Promyelocytes % 0 % 05/27/21 03:18 Blast Cells % 0 % 05/27/21 03:18 Nucleated RBC % Not Reportable 05/27/21 03:18 Seg Neutrophils # 9.0 K/mm3 (1.8-7.7) H 05/28/21 10:05 Seg Neutrophils # Man 19.8 K/mm3 (1.8-7.7) H 05/27/21 03:18 Band Neutrophils # 0.0 K/mm3 05/27/21 03:18 Lymphocytes # (Manual) 1.1 K/mm3 (1.2-5.4) L 05/27/21 03:18 Abs React Lymphs (Man) 0.0 K/mm3 05/27/21 03:18 Monocytes # (Manual) 0.6 K/mm3 (0.0-0.8) 05/27/21 03:18 Eosinophils # (Manual) 0.0 K/mm3 (0.0-0.4) 05/27/21 03:18 Basophils # (Manual) 0.0 K/mm3 (0.0-0.1) 05/27/21 03:18 Metamyelocytes # 0.0 K/mm3 05/27/21 03:18 Myelocytes # 0.0 K/mm3 05/27/21 03:18 Promyelocytes # 0.0 K/mm3 05/27/21 03:18 Blast Cells # 0.0 K/mm3 05/27/21 03:18 WBC Morphology Not Reportable 05/27/21 03:18 Hypersegmented Neuts Not Reportable 05/27/21 03:18 Hyposegmented Neuts Not Reportable 05/27/21 03:18 Hypogranular Neuts Not Reportable 05/27/21 03:18 Smudge Cells Not Reportable 05/27/21 03:18 Toxic Granulation Not Reportable 05/27/21 03:18 Toxic Vacuolation Not Reportable 05/27/21 03:18 Dohle Bodies Not Reportable 05/27/21 03:18 Pelger-Huet Anomaly Not Reportable 05/27/21 03:18 Glenn Rods Not Reportable 05/27/21 03:18 Platelet Estimate Consistent w auto 05/27/21 03:18 Clumped Platelets Not Reportable 05/27/21 03:18 Plt Clumps, EDTA Not Reportable 05/27/21 03:18 Large Platelets Not Reportable 05/27/21 03:18 Giant Platelets Not Reportable 05/27/21 03:18 Platelet Satelliting Not Reportable 05/27/21 03:18 Plt Morphology Comment Not Reportable 05/27/21 03:18 RBC Morphology Normal 05/27/21 03:18 Dimorphic RBCs Not Reportable 05/27/21 03:18 Polychromasia Not Reportable 05/27/21 03:18 Hypochromasia Not Reportable 05/27/21 03:18 Poikilocytosis Not Reportable 05/27/21 03:18 Anisocytosis Not Reportable 05/27/21 03:18 Microcytosis Not Reportable 05/27/21 03:18 Macrocytosis Not Reportable 05/27/21 03:18 Spherocytes Not Reportable 05/27/21 03:18 Pappenheimer Bodies Not Reportable 05/27/21 03:18 Sickle Cells Not Reportable 05/27/21 03:18 Target Cells Not Reportable 05/27/21 03:18 Tear Drop Cells Not Reportable 05/27/21 03:18 Ovalocytes Not Reportable 05/27/21 03:18 Helmet Cells Not Reportable 05/27/21 03:18 [place]aselle Bodies Not Reportable 05/27/21 03:18 Hundred Rings Not Reportable 05/27/21 03:18 [place] Cells Not Reportable 05/27/21 03:18 Bite Cells Not Reportable 05/27/21 03:18 Crenated Cell Not Reportable 05/27/21 03:18 Elliptocytes Not Reportable 05/27/21 03:18 Acanthocytes (Spur) Not Reportable 05/27/21 03:18 Rouleaux Not Reportable 05/27/21 03:18 Hemoglobin C Crystals Not Reportable 05/27/21 03:18 Schistocytes Not Reportable 05/27/21 03:18 Malaria parasites Not Reportable 05/27/21 03:18 Frandy Bodies Not Reportable 05/27/21 03:18 Hem Pathologist Commnt No 05/27/21 03:18 PT 15.8 Sec. (12.2-14.9) H 06/04/21 04:10 INR 1.14 (0.87-1.13) H 06/04/21 04:10 APTT 36.1 Sec. (24.2-36.6) 06/03/21 Unknown Heparin Anti-Xa Level 0.14 U.I./ml (0.3-0.7) L 06/06/21 10:00 ABG pH 7.406 (7.320-7.450) 06/04/21 04:00 POC ABG pCO2 51.5 mmHg (32.0-48.0) H 06/04/21 04:00 ABG pCO2 54.4 mm Hg 06/02/21 05:42 POC ABG pO2 61.7 mmHg (83-108) L 06/04/21 04:00 ABG pO2 141.2 mm Hg (80.0-90.0) H 06/02/21 05:42 POC ABG HCO3 31.6 06/04/21 04:00 ABG HCO3 30.6 mmol/L (20.0-26.0) H 06/02/21 05:42 ABG O2 Saturation 92.7 (0-100) 06/04/21 04:00 ABG O2 Content 16.6 (0.0-44) 06/02/21 05:42 POC ABG Base Excess 5.7 06/04/21 04:00 ABG Base Excess 4.1 mmol/L (-2.0-3.0) H 06/02/21 05:42 ABG Hemoglobin 12.7 (12.0-17.5) 06/04/21 04:00 ABG Oxyhemoglobin 90.9 (94-98) L 06/04/21 04:00 ABG Carboxyhemoglobin 1.5 % (0.0-5.0) 06/02/21 05:42 ABG Methemoglobin 0.3 (0.0-1.5) 06/04/21 04:00 ABG Sodium 137.9 mmol/L (136.0-145.0) 05/24/21 03:44 ABG Potassium 5.6 mmol/L (3.40-4.50) H 05/24/21 03:44 ABG Chloride 105.0 mmol/L (98-107) 05/24/21 03:44 ABG Glucose 53 mg/dL (65-95) L 05/24/21 03:44 Oxyhemoglobin 96.7 % (95.0-99.0) 06/02/21 05:42 Carboxyhemoglobin 1.6 (0.5-1.5) H 06/04/21 04:00 FiO2 50 % 06/02/21 05:42 FiO2 % 35.0 06/04/21 04:00 Sodium 153 mmol/L (137-145) H D 06/06/21 04:00 Potassium 3.4 mmol/L (3.6-5.0) L 06/06/21 04:00 Chloride 115.1 mmol/L (98-107) H 06/06/21 04:00 Carbon Dioxide 27 mmol/L (22-30) 06/06/21 04:00 Anion Gap 14 mmol/L 06/06/21 04:00 BUN 6 mg/dL (9-20) L 06/06/21 04:00 Creatinine 0.5 mg/dL (0.8-1.3) L 06/06/21 04:00 Estimated GFR > 60 ml/min 06/06/21 04:00 BUN/Creatinine Ratio 12 % 06/06/21 04:00 Glucose 110 mg/dL (75-100) H 06/06/21 04:00 POC Glucose 112 mg/dL (70-105) H 06/06/21 11:31 Lactic Acid 2.10 mmol/L (0.7-2.0) H* 05/28/21 10:05 Calcium 7.7 mg/dL (8.4-10.2) L 06/06/21 04:00 Phosphorus 3.00 mg/dL (2.5-4.5) 06/02/21 07:41 Magnesium 1.40 mg/dL (1.7-2.3) L 06/06/21 04:00 Total Bilirubin 2.90 mg/dL (0.1-1.2) H 06/02/21 20:00 Direct Bilirubin 2.4 mg/dL (0-0.2) H 06/02/21 07:41 Indirect Bilirubin 0.9 mg/dL 06/02/21 07:41 AST 53 units/L (5-40) H 06/02/21 20:00 ALT 30 units/L (7-56) 06/02/21 20:00 Alkaline Phosphatase 115 units/L (35-129) 06/02/21 20:00 Total Creatine Kinase 556 units/L (55-170) H 05/24/21 09:35 Troponin T < 0.010 ng/mL (0.00-0.029) 05/23/21 09:38 C-Reactive Protein 34.80 mg/dL (0.00-1.30) H 05/28/21 10:05 NT-Pro-B Natriuret Pep 6058 pg/mL (0-450) H 05/23/21 09:38 Total Protein 6.2 g/dL (6.3-8.2) L 06/02/21 20:00 Albumin 1.8 g/dL (3.9-5) L 06/02/21 20:00 Albumin/Globulin Ratio 0.4 % 06/02/21 20:00 Triglycerides 161 mg/dL (2-149) H 06/04/21 04:10 Procalcitonin 12.51 ng/mL (<0.15) 05/28/21 10:05 Arterial Blood Glucose 53 mg/dL (65-95) L 05/24/21 03:44 Arterial Blood Ionized Calcium 4.6 mg/dL (4.6-5.3) 05/24/21 03:44 Urine Color Sherri (Yellow) 05/28/21 12:20 Urine Turbidity Clear (Clear) 05/28/21 12:20 Urine pH 6.0 (5.0-7.0) 05/28/21 12:20 Ur Specific [place] 1.017 (1.003-1.030) 05/28/21 12:20 Urine Protein 30 mg/dl mg/dL (Negative) 05/28/21 12:20 Urine Glucose (UA) Neg mg/dL (Negative) 05/28/21 12:20 Urine Ketones Neg mg/dL (Negative) 05/28/21 12:20 Urine Blood Mod (Negative) 05/28/21 12:20 Urine Nitrite Neg (Negative) 05/28/21 12:20 Urine Bilirubin Mod (Negative) 05/28/21 12:20 Urine Ictotest Positive (Negative) 05/28/21 12:20 Urine Urobilinogen 4.0 mg/dL (<2.0) 05/28/21 12:20 Ur Leukocyte Esterase Neg (Negative) 05/28/21 12:20 Urine WBC (Auto) 3.0 /HPF (0.0-6.0) 05/28/21 12:20 Urine RBC (Auto) 4.0 /HPF (0.0-6.0) 05/28/21 12:20 U Epithel Cells (Auto) < 1.0 /HPF (0-13.0) 05/28/21 12:20 Urine Bacteria (Auto) 1+ /HPF (Negative) 05/28/21 12:20 Urine Mucus Few /HPF 05/28/21 12:20 Urine Yeast (Budding) 1+ /HPF 05/24/21 Unknown Salicylates < 0.3 mg/dL (2.8-20.0) L 05/23/21 09:38 Urine Opiates Screen Negative 05/23/21 09:41 Urine Methadone Screen Negative 05/23/21 09:41 Acetaminophen 5.0 ug/mL (10.0-30.0) L 05/23/21 09:38 Ur Barbiturates Screen Negative 05/23/21 09:41 Ur Phencyclidine Scrn Negative 05/23/21 09:41 Ur Amphetamines Screen Positive 05/23/21 09:41 U Benzodiazepines Scrn Negative 05/23/21 09:41 Urine Cocaine Screen Negative 05/23/21 09:41 U Marijuana (THC) Screen Negative 05/23/21 09:41 Drugs of Abuse Note Disclamer 05/23/21 09:41 Coronavirus (PCR) Negative (Negative) 05/26/21 08:14 Hepatitis A IgM Ab Non-reactive (NonReactive) 05/27/21 16:00 Hep Bs Antigen Non-reactive (Negative) 05/27/21 16:00 Hep B Core IgM Ab Non-reactive (NonReactive) 05/27/21 16:00 Hepatitis C Antibody Non-reactive (NonReactive) 05/27/21 16:00 Microbiology: Microbiology 06/02/21 20:35 Tracheal Aspirate Sputum Culture - Final Enterobacter Cloacae Fajardo/IV: Voiding Method Indwelling Catheter Active Medications - Current Medications Current Medications: Generic Name Dose Route Start Last Admin Trade Name Freq PRN Reason Stop Dose Admin Acetaminophen 650 mg 05/23/21 11:43 05/31/21 03:22 Acetaminophen 650 Mg Rect Supp [place] 650 mg Q6H PRN Administration Pain MILD(1-3)/Fever >100.5/EPSTEIN Lipase/Protease/Amylase 1 each 05/29/21 08:45 Lipase 10,500/Protease 25,000/Amylase 43,750 (Units) Dr Cap FEEDTUBE PRN PRN For Clogged Feeding Tube Dextrose 0 ml 05/31/21 10:47 Dextrose 10% *Hypoglycemia IV PRN PRN Hypoglycemia Famotidine 40 mg 06/02/21 22:00 06/05/21 22:10 Famotidine 20 Mg Tab FEEDTUBE 40 mg QHS MARK Administration Fentanyl 50 mcg 06/01/21 12:29 Fentanyl 100 Mcg/2 Ml Inj IV Q10MIN PRN ANALGESIA Haloperidol Lactate 5 mg 05/30/21 12:18 06/01/21 09:27 Haloperidol Lactate 5 Mg/1 Ml Inj IV 5 mg Q6H PRN Administration Agitation Heparin Sodium (Porcine) 4,100 unit 06/03/21 15:02 Heparin 10,000 Units/10 Ml Vial 40 unit/kg (4100 unit) IV Q6H PRN Anti-Xa Assay < 0.1 units/ml Hydrophilic Ointment 1 applic 06/01/21 12:30 Lip Therapy Vaseline TP Q2HR PRN Dry Lips Dexmedetomidine HCl 400 mcg/ 104 mls @ 5.307 mls/hr 05/24/21 05:00 06/06/21 10:03 Sodium Chloride IV 1 mcg/kg/hr TITRATE MARK 26.535 mls/hr Administration Protocol 0.2 MCG/KG/HR Fentanyl Citrate 2,000 mcg in 100 mls @ 5.103 mls/hr 06/01/21 13:00 06/06/21 11:50 Fentanyl Drip Premix IV 1 mcg/kg/hr TITR MARK 5.103 mls/hr Titration Protocol 1 MCG/KG/HR Propofol 1,000 mg in 100 mls @ 3.062 mls/hr 06/01/21 12:10 06/06/21 11:44 Diprivan 10 Mg/Ml IV 20 mcg/kg/min TITR MARK 12.247 mls/hr Titration Protocol 5 MCG/KG/MIN Ampicillin Sodium/Sulbactam Sodium 3 gm in 100 mls @ 200 mls/hr 06/03/21 11:00 06/06/21 10:47 Unasyn/Ns 3 Gm/100 Ml IV 06/10/21 05:29 200 mls/hr Q6H MARK Administration Protocol Midazolam HCl 100 mg/ Sodium 100 mls @ 1 mls/hr 06/03/21 11:00 06/06/21 12:11 Chloride IV 0 mg/hr TITR MARK 0 mls/hr Titration Protocol 1 MG/HR Heparin Sodium/Sodium Chloride 25,000 unit in 500 mls @ 30 mls/hr 06/03/21 16:00 06/06/21 10:49 Heparin/ 0.45% Nacl-25,000 Unit/500 Ml IV 2,000 units/hr TITR MARK 40 mls/hr Titration Protocol 1,500 UNITS/HR Lorazepam 2 mg 05/31/21 11:00 06/03/21 09:20 Lorazepam 2 Mg/Ml Vial IV 2 mg Q4H PRN Administration Agitation Midazolam HCl 2 mg 06/03/21 10:06 Midazolam 2 Mg/2 Ml Inj IV Q10MIN PRN Sedation Midodrine 5 mg 06/02/21 12:00 06/06/21 11:58 Midodrine 5 Mg Tab PO 5 mg TID@0800,1200,1600 MARK Administration Multi-Ingred Cream/Lotion/Oil/Oint 1 applic 06/01/21 12:30 Mineral Oil/Petrolatum, White Ophth Oint 3.5 Gm OU Q4HR PRN Dry Eye(s) Ondansetron HCl 4 mg 05/23/21 11:43 Ondansetron 4 Mg/2 Ml Inj IV Q8H PRN Nausea And Vomiting Potassium Chloride 40 meq 06/06/21 10:00 06/06/21 09:48 Potassium Chloride 20 Meq Packet FEEDTUBE 06/06/21 14:01 40 meq Q4HR MARK Administration Quetiapine Fumarate 50 mg 06/06/21 13:00 06/06/21 12:15 Quetiapine 25 Mg Tab PO 50 mg BID MARK Administration Senna/Docusate Sodium 1 tab 06/01/21 22:00 06/06/21 09:48 Sennosides/Docusate Sodium 8.6/50 Mg Tab FEEDTUBE 1 tab BID MARK Administration Simple Syrup 15 ml 05/29/21 08:45 Simple Syrup 15 Ml FEEDTUBE PRN PRN Hypoglycemia Simple Syrup 30 ml 05/29/21 08:45 Simple Syrup 15 Ml FEEDTUBE PRN PRN Hypoglycemia Sodium Bicarbonate 325 mg 05/29/21 08:45 Sodium Bicarbonate 325 Mg Tab FEEDTUBE PRN PRN For Clogged Feeding Tube Sodium Chloride 10 ml 05/23/21 22:00 06/06/21 09:48 Sodium Chloride 0.9% 10 Ml Flush Syringe IV 10 ml BID MARK Administration Sodium Chloride 10 ml 05/23/21 11:43 Sodium Chloride 0.9% 10 Ml Flush Syringe IV PRN PRN LINE FLUSH Sodium Chloride 10 ml 05/31/21 09:50 06/01/21 12:32 Sodium Chloride 0.9% 50 Ml Ivpb IV 10 ml PRN PRN Administration FLUSH Vitamin B Complex/Folic Acid 1 each 05/30/21 10:00 06/06/21 09:48 Folbee Plus Cz (Folic Acid/Vit Bcomp&C/Cu/Znox) PO 1 each QDAY MARK Administration Nutrition/Malnutrition Assess - Dietary Evaluation Nutrition/Malnutrition Findings: Nutrition Notes Start: 05/28/21 1 2:16 Freq: Status: Active Protocol: Document 05/31/21 15:28 GREGG (Rec: 05/31/21 15:51 GREGG [id number]) Nutrition Notes Initial or Follow up Brief Note Current Diet TF-Vital HP @ 70 ml/hr (since D 05/31). Height 6 ft Weight 102.058 kg [place] Body Weight (kg) 80.90 BMI 30.5 Weight change and time frame No body weight change in 2 days reported. Subjective/Other Information RD consult for routine F/u on TF tolerance. Pt extubated from mechanical ventilation, now on Bi-PaP+ tolerating well. TF continues as prescribed. Percent of energy/protein needs met: Prescribed Vital HP @ 70 ml/hr provides for energy/protein needs (1,655 Kcal/145 g) during LOS, 70% Kcal; 89% AA. #1 Nutrition Diagnosis Inadequate oral intake Diagnosis Progress(for reassessment Continues documentation) Is patient on ventilator? Yes Is Patient Ambulatory and/or Out of Bed No REE-([facility]-confined to bed) [phone] Calculation Used for Recommendations 65-70% energy needs Additional Notes Energy needs: 2453-0569 kcal/ day Pro needs 2g/kg IBW: 162g/day Fluid needs 1ml/kcal Nutrition Intervention Nutrition Support: Continue Vital HP @ 70 ml/hr. Flush: 170 ml water Q 4 hr, or as per MD. Kcal 1,655 Protein (gm) 145 Carbohydrates (gm) 185 Fat (gm) 38 Fluid (mL) 1,384 Fiber (gm) 0 % RDI: 70% Kcal; 89% AA. Goal #1 Provide at least 75% of energy /protein needs through Enteral Feeding during LOS. Goal #2 Maintain body weight within +/ -3% of admission body weight during LOS. Follow-Up By: 06/07/21 Additional Comments Continue monitoring TF tolerance and BM. <MAVIS CARVALHO - Last Filed: 06/08/21 10:23> Assessment and Plan Assessment and plan: I saw and evaluated the patient. Discussed with the nurse practitioner and agree with their findings and plan as documented in this note. Hospitalist Physical - Constitutional Vitals: Temp Pulse Resp BP Pulse Ox 98.8 F 100 H 19 123/92 100 06/08/21 08:00 06/08/21 09:02 06/08/21 08:30 06/08/21 09:02 06/08/21 08:37 HEART Score - HEART Score Troponin: Troponin T < 0.010 ng/mL (0.00-0.029) 05/23/21 09:38 Results - Labs CBC & Chem 7: 06/08/21 04:42 06/08/21 04:42 Labs: Laboratory Last Values WBC 8.7 K/mm3 (4.5-11.0) 06/08/21 04:42 RBC 3.62 M/mm3 (3.65-5.03) L 06/08/21 04:42 Hgb 10.2 gm/dl (11.8-15.2) L 06/08/21 04:42 Hct 31.9 % (35.5-45.6) L 06/08/21 04:42 MCV 88 fl (84-94) 06/08/21 04:42 MCH 28 pg (28-32) 06/08/21 04:42 MCHC 32 % (32-34) 06/08/21 04:42 RDW 16.5 % (13.2-15.2) H 06/08/21 04:42 Plt Count 502 K/mm3 (140-440) H 06/08/21 04:42 Lymph % (Auto) 11.2 % (13.4-35.0) L 05/28/21 10:05 [place] % (Auto) 8.6 % (0.0-7.3) H 05/28/21 10:05 Eos % (Auto) 0.8 % (0.0-4.3) 05/28/21 10:05 Baso % (Auto) 0.5 % (0.0-1.8) 05/28/21 10:05 Lymph # (Auto) 1.3 K/mm3 (1.2-5.4) 05/28/21 10:05 [place] # (Auto) 1.0 K/mm3 (0.0-0.8) H 05/28/21 10:05 Eos # (Auto) 0.1 K/mm3 (0.0-0.4) 05/28/21 10:05 Baso # (Auto) 0.1 K/mm3 (0.0-0.1) 05/28/21 10:05 Add Manual Diff Complete 05/27/21 03:18 Total Counted 100 05/27/21 03:18 Seg Neutrophils % 78.9 % (40.0-70.0) H 05/28/21 10:05 Seg Neuts % (Manual) 92.0 % (40.0-70.0) H 05/27/21 03:18 Band Neutrophils % 0 % 05/27/21 03:18 Lymphocytes % (Manual) 5.0 % (13.4-35.0) L 05/27/21 03:18 Reactive Lymphs % (Man) 0 % 05/27/21 03:18 Monocytes % (Manual) 3.0 % (0.0-7.3) 05/27/21 03:18 Eosinophils % (Manual) 0 % (0.0-4.3) 05/27/21 03:18 Basophils % (Manual) 0 % (0.0-1.8) 05/27/21 03:18 Metamyelocytes % 0 % 05/27/21 03:18 Myelocytes % 0 % 05/27/21 03:18 Promyelocytes % 0 % 05/27/21 03:18 Blast Cells % 0 % 05/27/21 03:18 Nucleated RBC % Not Reportable 05/27/21 03:18 Seg Neutrophils # 9.0 K/mm3 (1.8-7.7) H 05/28/21 10:05 Seg Neutrophils # Man 19.8 K/mm3 (1.8-7.7) H 05/27/21 03:18 Band Neutrophils # 0.0 K/mm3 05/27/21 03:18 Lymphocytes # (Manual) 1.1 K/mm3 (1.2-5.4) L 05/27/21 03:18 Abs React Lymphs (Man) 0.0 K/mm3 05/27/21 03:18 Monocytes # (Manual) 0.6 K/mm3 (0.0-0.8) 05/27/21 03:18 Eosinophils # (Manual) 0.0 K/mm3 (0.0-0.4) 05/27/21 03:18 Basophils # (Manual) 0.0 K/mm3 (0.0-0.1) 05/27/21 03:18 Metamyelocytes # 0.0 K/mm3 05/27/21 03:18 Myelocytes # 0.0 K/mm3 05/27/21 03:18 Promyelocytes # 0.0 K/mm3 05/27/21 03:18 Blast Cells # 0.0 K/mm3 05/27/21 03:18 WBC Morphology Not Reportable 05/27/21 03:18 Hypersegmented Neuts Not Reportable 05/27/21 03:18 Hyposegmented Neuts Not Reportable 05/27/21 03:18 Hypogranular Neuts Not Reportable 05/27/21 03:18 Smudge Cells Not Reportable 05/27/21 03:18 Toxic Granulation Not Reportable 05/27/21 03:18 Toxic Vacuolation Not Reportable 05/27/21 03:18 Dohle Bodies Not Reportable 05/27/21 03:18 Pelger-Huet Anomaly Not Reportable 05/27/21 03:18 Glenn Rods Not Reportable 05/27/21 03:18 Platelet Estimate Consistent w auto 05/27/21 03:18 Clumped Platelets Not Reportable 05/27/21 03:18 Plt Clumps, EDTA Not Reportable 05/27/21 03:18 Large Platelets Not Reportable 05/27/21 03:18 Giant Platelets Not Reportable 05/27/21 03:18 Platelet Satelliting Not Reportable 05/27/21 03:18 Plt Morphology Comment Not Reportable 05/27/21 03:18 RBC Morphology Normal 05/27/21 03:18 Dimorphic RBCs Not Reportable 05/27/21 03:18 Polychromasia Not Reportable 05/27/21 03:18 Hypochromasia Not Reportable 05/27/21 03:18 Poikilocytosis Not Reportable 05/27/21 03:18 Anisocytosis Not Reportable 05/27/21 03:18 Microcytosis Not Reportable 05/27/21 03:18 Macrocytosis Not Reportable 05/27/21 03:18 Spherocytes Not Reportable 05/27/21 03:18 Pappenheimer Bodies Not Reportable 05/27/21 03:18 Sickle Cells Not Reportable 05/27/21 03:18 Target Cells Not Reportable 05/27/21 03:18 Tear Drop Cells Not Reportable 05/27/21 03:18 Ovalocytes Not Reportable 05/27/21 03:18 Helmet Cells Not Reportable 05/27/21 03:18 [place]av[place]-Naselle Bodies Not Reportable 05/27/21 03:18 Hundred Rings Not Reportable 05/27/21 03:18 Giorgio Cells Not Reportable 05/27/21 03:18 Bite Cells Not Reportable 05/27/21 03:18 Crenated Cell Not Reportable 05/27/21 03:18 Elliptocytes Not Reportable 05/27/21 03:18 Acanthocytes (Spur) Not Reportable 05/27/21 03:18 Rouleaux Not Reportable 05/27/21 03:18 Hemoglobin C Crystals Not Reportable 05/27/21 03:18 Schistocytes Not Reportable 05/27/21 03:18 Malaria parasites Not Reportable 05/27/21 03:18 Frandy Bodies Not Reportable 05/27/21 03:18 Hem Pathologist Commnt No 05/27/21 03:18 PT 14.2 Sec. (12.2-14.9) 06/07/21 10:50 INR 0.99 (0.87-1.13) 06/07/21 10:50 APTT 36.1 Sec. (24.2-36.6) 06/03/21 Unknown Heparin Anti-Xa Level 0.34 U.I./ml (0.3-0.7) 06/07/21 10:50 ABG pH 7.406 (7.320-7.450) 06/04/21 04:00 POC ABG pCO2 51.5 mmHg (32.0-48.0) H 06/04/21 04:00 ABG pCO2 54.4 mm Hg 06/02/21 05:42 POC ABG pO2 61.7 mmHg (83-108) L 06/04/21 04:00 ABG pO2 141.2 mm Hg (80.0-90.0) H 06/02/21 05:42 POC ABG HCO3 31.6 06/04/21 04:00 ABG HCO3 30.6 mmol/L (20.0-26.0) H 06/02/21 05:42 ABG O2 Saturation 92.7 (0-100) 06/04/21 04:00 ABG O2 Content 16.6 (0.0-44) 06/02/21 05:42 POC ABG Base Excess 5.7 06/04/21 04:00 ABG Base Excess 4.1 mmol/L (-2.0-3.0) H 06/02/21 05:42 ABG Hemoglobin 12.7 (12.0-17.5) 06/04/21 04:00 ABG Oxyhemoglobin 90.9 (94-98) L 06/04/21 04:00 ABG Carboxyhemoglobin 1.5 % (0.0-5.0) 06/02/21 05:42 ABG Methemoglobin 0.3 (0.0-1.5) 06/04/21 04:00 ABG Sodium 137.9 mmol/L (136.0-145.0) 05/24/21 03:44 ABG Potassium 5.6 mmol/L (3.40-4.50) H 05/24/21 03:44 ABG Chloride 105.0 mmol/L (98-107) 05/24/21 03:44 ABG Glucose 53 mg/dL (65-95) L 05/24/21 03:44 Oxyhemoglobin 96.7 % (95.0-99.0) 06/02/21 05:42 Carboxyhemoglobin 1.6 (0.5-1.5) H 06/04/21 04:00 FiO2 50 % 06/02/21 05:42 FiO2 % 35.0 06/04/21 04:00 Sodium 143 mmol/L (137-145) 06/08/21 04:42 Potassium 3.7 mmol/L (3.6-5.0) 06/08/21 04:42 Chloride 109.9 mmol/L (98-107) H 06/08/21 04:42 Carbon Dioxide 26 mmol/L (22-30) 06/08/21 04:42 Anion Gap 11 mmol/L 06/08/21 04:42 BUN 11 mg/dL (9-20) 06/08/21 04:42 Creatinine 0.5 mg/dL (0.8-1.3) L 06/08/21 04:42 Estimated GFR > 60 ml/min 06/08/21 04:42 BUN/Creatinine Ratio 22 % 06/08/21 04:42 Glucose 108 mg/dL (75-100) H 06/08/21 04:42 POC Glucose 113 mg/dL (70-105) H 06/08/21 05:15 Lactic Acid 2.10 mmol/L (0.7-2.0) H* 05/28/21 10:05 Calcium 8.2 mg/dL (8.4-10.2) L 06/08/21 04:42 Phosphorus 2.50 mg/dL (2.5-4.5) 06/08/21 04:42 Magnesium 1.60 mg/dL (1.7-2.3) L 06/08/21 04:42 Total Bilirubin 2.90 mg/dL (0.1-1.2) H 06/02/21 20:00 Direct Bilirubin 2.4 mg/dL (0-0.2) H 06/02/21 07:41 Indirect Bilirubin 0.9 mg/dL 06/02/21 07:41 AST 53 units/L (5-40) H 06/02/21 20:00 ALT 30 units/L (7-56) 06/02/21 20:00 Alkaline Phosphatase 115 units/L (35-129) 06/02/21 20:00 Total Creatine Kinase 556 units/L (55-170) H 05/24/21 09:35 Troponin T < 0.010 ng/mL (0.00-0.029) 05/23/21 09:38 C-Reactive Protein 34.80 mg/dL (0.00-1.30) H 05/28/21 10:05 NT-Pro-B Natriuret Pep 6058 pg/mL (0-450) H 05/23/21 09:38 Total Protein 6.2 g/dL (6.3-8.2) L 06/02/21 20:00 Albumin 1.8 g/dL (3.9-5) L 06/02/21 20:00 Albumin/Globulin Ratio 0.4 % 06/02/21 20:00 Triglycerides 142 mg/dL (2-149) 06/07/21 Unknown Procalcitonin 12.51 ng/mL (<0.15) 05/28/21 10:05 Arterial Blood Glucose 53 mg/dL (65-95) L 05/24/21 03:44 Arterial Blood Ionized Calcium 4.6 mg/dL (4.6-5.3) 05/24/21 03:44 Urine Color Sherri (Yellow) 05/28/21 12:20 Urine Turbidity Clear (Clear) 05/28/21 12:20 Urine pH 6.0 (5.0-7.0) 05/28/21 12:20 Ur Specific [place] 1.017 (1.003-1.030) 05/28/21 12:20 Urine Protein 30 mg/dl mg/dL (Negative) 05/28/21 12:20 Urine Glucose (UA) Neg mg/dL (Negative) 05/28/21 12:20 Urine Ketones Neg mg/dL (Negative) 05/28/21 12:20 Urine Blood Mod (Negative) 05/28/21 12:20 Urine Nitrite Neg (Negative) 05/28/21 12:20 Urine Bilirubin Mod (Negative) 05/28/21 12:20 Urine Ictotest Positive (Negative) 05/28/21 12:20 Urine Urobilinogen 4.0 mg/dL (<2.0) 05/28/21 12:20 Ur Leukocyte Esterase Neg (Negative) 05/28/21 12:20 Urine WBC (Auto) 3.0 /HPF (0.0-6.0) 05/28/21 12:20 Urine RBC (Auto) 4.0 /HPF (0.0-6.0) 05/28/21 12:20 U Epithel Cells (Auto) < 1.0 /HPF (0-13.0) 05/28/21 12:20 Urine Bacteria (Auto) 1+ /HPF (Negative) 05/28/21 12:20 Urine Mucus Few /HPF 05/28/21 12:20 Urine Yeast (Budding) 1+ /HPF 05/24/21 Unknown Salicylates < 0.3 mg/dL (2.8-20.0) L 05/23/21 09:38 Urine Opiates Screen Negative 05/23/21 09:41 Urine Methadone Screen Negative 05/23/21 09:41 Acetaminophen 5.0 ug/mL (10.0-30.0) L 05/23/21 09:38 Ur Barbiturates Screen Negative 05/23/21 09:41 Ur Phencyclidine Scrn Negative 05/23/21 09:41 Ur Amphetamines Screen Positive 05/23/21 09:41 U Benzodiazepines Scrn Negative 05/23/21 09:41 Urine Cocaine Screen Negative 05/23/21 09:41 U Marijuana (THC) Screen Negative 05/23/21 09:41 Drugs of Abuse Note Disclamer 05/23/21 09:41 Coronavirus (PCR) Negative (Negative) 05/26/21 08:14 Hepatitis A IgM Ab Non-reactive (NonReactive) 05/27/21 16:00 Hep Bs Antigen Non-reactive (Negative) 05/27/21 16:00 Hep B Core IgM Ab Non-reactive (NonReactive) 05/27/21 16:00 Hepatitis C Antibody Non-reactive (NonReactive) 05/27/21 16:00 [place]/IV: Voiding Method Indwelling Catheter Active Medications - Current Medications Current Medications: Generic Name Dose Route Start Last Admin Trade Name Freq PRN Reason Stop Dose Admin Acetaminophen 650 mg 05/23/21 11:43 05/31/21 03:22 Acetaminophen 650 Mg Rect Supp [place] 650 mg Q6H PRN Administration Pain MILD(1-3)/Fever >100.5/EPSTEIN Lipase/Protease/Amylase 1 each 05/29/21 08:45 Lipase 10,500/Protease 25,000/Amylase 43,750 (Units) Dr Mitchell FEEDTUBE PRN PRN For Clogged Feeding Tube Apixaban 10 mg 06/07/21 15:00 06/08/21 09:03 Apixaban 5 Mg Tab PO 06/13/21 22:01 10 mg Q12HR MARK Administration Protocol Apixaban 5 mg 06/14/21 10:00 Apixaban 5 Mg Tab PO Q12HR MARK Protocol Carvedilol 6.25 mg 06/07/21 12:00 06/08/21 09:02 Carvedilol 6.25 Mg Tab FEEDTUBE 6.25 mg BID MARK Administration Dextrose 0 ml 05/31/21 10:47 Dextrose 10% *Hypoglycemia IV PRN PRN Hypoglycemia Famotidine 40 mg 06/02/21 22:00 06/07/21 22:30 Famotidine 20 Mg Tab FEEDTUBE 40 mg QHS MARK Administration Fentanyl 50 mcg 06/01/21 12:29 Fentanyl 100 Mcg/2 Ml Inj IV Q10MIN PRN ANALGESIA Furosemide 20 mg 06/07/21 12:00 06/08/21 09:03 Furosemide 20 Mg Tab FEEDTUBE 20 mg BID MARK Administration Haloperidol Lactate 5 mg 05/30/21 12:18 06/01/21 09:27 Haloperidol Lactate 5 Mg/1 Ml Inj IV 5 mg Q6H PRN Administration Agitation Hydrophilic Ointment 1 applic 06/01/21 12:30 Lip Therapy Vaseline TP Q2HR PRN Dry Lips Dexmedetomidine HCl 400 mcg/ 104 mls @ 5.307 mls/hr 05/24/21 05:00 06/08/21 06:15 Sodium Chloride IV 1.2 mcg/kg/hr TITRATE MARK 31.842 mls/hr Administration Protocol 0.2 MCG/KG/HR Fentanyl Citrate 2,000 mcg in 100 mls @ 5.103 mls/hr 06/01/21 13:00 06/08/21 04:38 Fentanyl Drip Premix IV 1 mcg/kg/hr TITR MARK 5.103 mls/hr Administration Protocol 1 MCG/KG/HR Ampicillin Sodium/Sulbactam Sodium 3 gm in 100 mls @ 200 mls/hr 06/03/21 11:00 06/08/21 04:37 Unasyn/Ns 3 Gm/100 Ml IV 06/10/21 05:29 200 mls/hr Q6H MARK Administration Protocol Magnesium Sulfate 4 gm in 100 mls @ 25 mls/hr 06/08/21 10:00 06/08/21 09:09 Magnesium Sulfate 4gm/100ml IV 06/08/21 13:59 25 mls/hr ONCE ONE Administration Lorazepam 2 mg 05/31/21 11:00 06/08/21 09:02 Lorazepam 2 Mg/Ml Vial IV 2 mg Q4H PRN Administration Agitation Midodrine 5 mg 06/02/21 12:00 06/08/21 09:01 Midodrine 5 Mg Tab PO 5 mg TID@0800,1200,1600 MARK Administration Multi-Ingred Cream/Lotion/Oil/Oint 1 applic 06/01/21 12:30 Mineral Oil/Petrolatum, White Ophth Oint 3.5 Gm OU Q4HR PRN Dry Eye(s) Ondansetron HCl 4 mg 05/23/21 11:43 Ondansetron 4 Mg/2 Ml Inj IV Q8H PRN Nausea And Vomiting Quetiapine Fumarate 75 mg 06/07/21 22:00 06/08/21 09:03 Quetiapine 25 Mg Tab PO 75 mg BID MARK Administration Senna/Docusate Sodium 1 tab 06/01/21 22:00 06/08/21 09:04 Sennosides/Docusate Sodium 8.6/50 Mg Tab FEEDTUBE 1 tab BID MARK Administration Simple Syrup 15 ml 05/29/21 08:45 Simple Syrup 15 Ml FEEDTUBE PRN PRN Hypoglycemia Simple Syrup 30 ml 05/29/21 08:45 Simple Syrup 15 Ml FEEDTUBE PRN PRN Hypoglycemia Sodium Bicarbonate 325 mg 05/29/21 08:45 Sodium Bicarbonate 325 Mg Tab FEEDTUBE PRN PRN For Clogged Feeding Tube Sodium Chloride 10 ml 05/23/21 22:00 06/08/21 09:04 Sodium Chloride 0.9% 10 Ml Flush Syringe IV 10 ml BID MARK Administration Sodium Chloride 10 ml 05/23/21 11:43 Sodium Chloride 0.9% 10 Ml Flush Syringe IV PRN PRN LINE FLUSH Sodium Chloride 10 ml 05/31/21 09:50 06/01/21 12:32 Sodium Chloride 0.9% 50 Ml Ivpb IV 10 ml PRN PRN Administration FLUSH Vitamin B Complex/Folic Acid 1 each 05/30/21 10:00 06/08/21 09:03 Folbee Plus Cz (Folic Acid/Vit Bcomp&C/Cu/Znox) PO 1 each QDAY MARK Administration Nutrition/Malnutrition Assess - Dietary Evaluation Nutrition/Malnutrition Findings: Nutrition Notes Start: 05/28/21 12:16 Freq: Status: Active Protocol: Document 06/07/21 15:07 YURI (Rec: 06/07/21 15:17 [facility] [id number]) Nutrition Notes Initial or Follow up Reassessment Current Diagnosis Heart Failure,Respiratory Failure Other Pertinent Diagnosis Acute encephalopathy, Overdose , Methamphetamine dependence Current Diet TF - Vital HP at 70ml/hr Labs/Tests Phos 2.3 Pertinent Medications Lasix, 15mmol KPhos x 1 dose, Vit B complex/Folic acid Height 6 ft Weight 102.058 kg [place] Body Weight (kg) 80.90 BMI 30.5 Weight Status Obese Subjective/Other Information Pt remains on vent support. Per RN, pt tolerating TF at goal rate and currently receiving 200ml water flush q4h. PEG and trach placed on 06/04. Percent of energy/protein needs met: 71% energy 91% pro Burn Absent Trauma Absent #1 Nutrition Diagnosis Inadequate oral intake Diagnosis Progress(for reassessment Continues documentation) Is patient on ventilator? Yes Is Patient Ambulatory and/or Out of Bed No REE-([facility]-confined to bed) [phone] Calculation Used for Recommendations 65-70% energy needs Additional Notes Energy needs: 3131-1519 kcal/ day Pro needs 2g/kg IBW: 162g/day Fluid needs 1ml/kcal Nutrition Intervention Nutrition Support: Continue Vital HP at 70 ml/hr. Continue 200ml water flush q4h until hypernatremia resolves; then provide 50ml water flush q4h. Kcal 1,680 Protein (gm) 147 Carbohydrates (gm) 188 Fat (gm) 39 Fluid (mL) 1,404 Fiber (gm) 0 Goal #1 TF tolerance Goal #2 TF to meet 65-70% energy and at least 75% pro needs Follow-Up By: 06/11/21 Additional Comments F/U: Vent status, Na lab/water flush
[2021-06-06] MEDS: LORazepam 2 MG/ML VIAL IV PRN ×2 (16:10→22:30)
[2021-06-06] MEDS: FAMOTIDINE 20 MG TAB FEEDTUBE SCH (22:31)
[2021-06-07] MEDS: LORazepam 2 MG/ML VIAL IV PRN ×4 (02:00→21:12)
[2021-06-07] MEDS: FREE WATER PO SCH ×6 (02:06→22:30)
--- NOTE | 2021-06-07 03:21 | XRay Report ---
CHEST 1 VIEW INDICATION / CLINICAL INFORMATION: follow up respiratory failure. COMPARISON: 06/06/2021 FINDINGS: SUPPORT DEVICES: Stable positioning of tracheostomy tube. HEART / MEDIASTINUM: Stable cardiomegaly. LUNGS / PLEURA: Bibasilar pulmonary opacities persist not appreciably changed given slight difference s in technique. No pneumothorax. ADDITIONAL FINDINGS: No significant additional findings. IMPRESSION: 1. No significant interval change in the appearance of the chest radiograph. Signer Name: Fara Pemberton MD Signed: 06/07/2021 3:17 AM Workstation Name: [id number]
[2021-06-07] MEDS: AMPICILLIN/SULBACTA 3GM/100ML 3 GM/100 ML BAG IV SCH ×4 (05:35→23:31)
[2021-06-07 06:52] LABS: Hematocrit 29.4 % (35.5-45.6); Hemoglobin 9.8 gm/dl (11.8-15.2); Mean Corpuscular HGB Conc 33 % (32-34); Mean Corpuscular Volume 87 fl (84-94); Platelet Count 473 K/mm3 (140-440); Red Blood Count 3.38 M/mm3 (3.65-5.03); Red Cell Distribution Width 16.2 % (13.2-15.2)
[2021-06-07 07:06] LABS: Blood Urea Nitrogen 8 mg/dL (9-20); Calcium 8.4 mg/dL (8.4-10.2); Hemolysis Index 5
[2021-06-07 07:17] LABS: BUN/Creatinine Ratio 13
[2021-06-07] MEDS: fentaNYL DRIP Premix 2,000 MCG/100 ML BAG IV SCH ×2 (07:28→17:53)
[2021-06-07] MEDS: MIDODRINE 5 MG TAB PO SCH ×3 (07:28→15:49)
[2021-06-07] MEDS: HEPARIN/ 0.45% NACL DRIP 25,000 UNIT/500 ML BAG IV SCH (07:57)
[2021-06-07] MEDS ORDERED: MAGNESIUM SULFATE 2 GM/50 ML BAG IV SCH (09:00)
[2021-06-07] MEDS: QUEtiapine 25 MG TAB PO SCH ×2 (09:19→21:06)
[2021-06-07] MEDS: FOLBEE PLUS CZ (FOLIC ACID/VIT BCOMP&C/CU/ZNOX) PO SCH (09:19)
[2021-06-07] MEDS ORDERED: POTASSIUM PHOSPHATE 15 MMOL in SODIUM CHLORIDE 0.9% 250ML 250 ML IV SCH (09:30)
[2021-06-07] MEDS: SENNOSIDES/DOCUSATE SODIUM 8.6/50 MG TAB FEEDTUBE SCH ×2 (10:00→21:10)
--- NOTE | 2021-06-07 10:35 | Progress Note ---
Assessment and Plan 40 y/o male with suspected overdose and metabolic acidosis 06/07/21: Continue BID seroquel. Reviewed I/O. Positive daily for several day s. No issues with hypoxemia but as we wean vent settings and remove afterload reducers, worried about worsening pullm status. Will ask cards about scheduled diuretic therapy. Continue to wean as tolerated. Placement. 06/06/21: Will start BID Seroquel today. Wean Diprovan off. Once off all sed ation, will attempt PSV trials. Placement. 06/05/21: Gain control of sedation and mental state. Feed per peg tube. Anticoagulation for DVT. Abx. Placement. 06/04/21: Trach and peg today. Wean sedation as tolerated once trached. once off all sedation can try PSV trials if patient will remain calm enough. Anticoagulation for DVT. MRI and head CT were negative. COntinue abx therapy. Guarded prognosis. 06/03/21: Surgery has seen and will schedule for trach and peg soon. IR consulted given acute DVT in upper ext and possible retained products. Will obtain CT of chest. Given mental status and no real answer with negative head CT, will obtain MRI. Will start empiric unasyn given secretions, odor and white count. Only on minimal vent settings. Await sputum culture. LFT's better. WIll place central line in groin. GUarded prognosis. 06/02/21: recheck LFT's. Consult surgery for trach and peg. Feed patient. Reviewed abdominal US from 05/27, unremarkable but if LFT's worse, may need to repeat or even consider CT of abdomen pelvis. 06/01/21: Reintubated today. Sedated. Spoke with mother over the phone. Given this is the third intubation in less than 10 days, will consult surgery for trach and peg. 05/31/21: Extubated and had some upper airway noise. RT gave racemic epi. Increased work of breathing but no desats so will try bipap therapy. If fails will be reintubated and trached. Keep NPO for now. Will need to change BB to IV while on bipap therapy. 05/28/21: Extubate again today once patient is more awake. Continue precedex to help with agitation. Will need swallow eval once extubated. Cards is seeing, await any new recs. spoke with them this morning and his cardiomyopathy and systolic heart failure are chronic with normal coronaries on a cath last year sometime in the [facility]. 05/27/21: Get patient to ICU as soon as possible to achieve adequate sedation and mental state control to insure successful extubation. AGree with Precedex 05/26/21: Attempt extubation today once all sedation is off. 05/25/21: follow up echo. Spoke with RT about ABG. States will be in system within the hour. Still pressors but on Precedex, Versed and Fent. needs to be COVID tested. BNP was >6k. Unable to diurese right now given pressor requir ements but need to follow up echo. need to get patient upstairs as soon as possible. Spoke with charge nurse and they are working on this. 1. CXR shows cardiomegaly with some bibasilar changes. Could be fluid. Suggest swabbing for COVID. Check BNP and obtain 2D echo given heart size. 2. Minimal sedation to assess mental status 3. Wean pressors for MAPS >60 4. Follow up renal recs 5. No ABG prior to intubation. Echo should be a bubble study given degree of hypoxemia seen on ABG CCT 31 minutes. Subjective Date of service: 06/07/21 Principal diagnosis: Overdose Interval history: Off diprovan, awake. Slightly tachy but ok. Solid BP Objective Vital Signs - 12hr 06/06/21 06/06/21 06/06/21 23:00 23:06 23:30 Temperature Pulse Rate 78 77 80 Pulse Rate [ From Monitor] Respiratory 24 24 19 Rate Blood Pressure 98/54 98/54 100/54 O2 Sat by Pulse 96 98 99 Oximetry 06/06/21 06/07/21 06/07/21 23:40 00:00 00:30 Temperature 99.6 F Pulse Rate 81 99 H Pulse Rate [ 79 From Monitor] Respiratory 17 21 Rate Blood Pressure 98/57 91/61 O2 Sat by Pulse 98 100 Oximetry 06/07/21 06/07/21 06/07/21 01:00 01:30 02:00 Temperature Pulse Rate 92 H 106 H 134 H Pulse Rate [ From Monitor] Respiratory 30 H 22 23 Rate Blood Pressure 102/60 114/67 114/67 O2 Sat by Pulse 99 100 100 Oximetry 06/07/21 06/07/21 06/07/21 02:30 03:00 03:30 Temperature Pulse Rate 88 86 76 Pulse Rate [ From Monitor] Respiratory 31 H 30 H 29 H Rate Blood Pressure 144/75 107/58 95/56 O2 Sat by Pulse 97 98 99 Oximetry 06/07/21 06/07/21 06/07/21 04:00 04:30 05:00 Temperature 99.5 F Pulse Rate 74 72 75 Pulse Rate [ 79 From Monitor] Respiratory 17 29 H 28 H Rate Blood Pressure 94/55 94/55 98/56 O2 Sat by Pulse 98 98 99 Oximetry 06/07/21 06/07/21 06/07/21 05:30 06:00 06:30 Temperature Pulse Rate 75 74 70 Pulse Rate [ From Monitor] Respiratory 26 H 24 27 H Rate Blood Pressure 97/55 93/55 92/53 O2 Sat by Pulse 99 98 98 Oximetry 06/07/21 06/07/21 06/07/21 07:00 07:30 08:00 Temperature 99.3 F Pulse Rate 69 75 69 Pulse Rate [ 69 From Monitor] Respiratory 26 H 20 25 H Rate Blood Pressure 91/52 96/55 94/55 O2 Sat by Pulse 98 99 99 Oximetry 06/07/21 06/07/21 06/07/21 08:30 09:00 09:22 Temperature Pulse Rate 68 67 67 Pulse Rate [ From Monitor] Respiratory 24 20 Rate Blood Pressure 97/57 100/58 100/58 O2 Sat by Pulse 99 99 99 Oximetry 06/07/21 06/07/21 09:30 10:00 Temperature Pulse Rate 68 68 Pulse Rate [ From Monitor] Respiratory 21 23 Rate Blood Pressure 99/58 98/53 O2 Sat by Pulse 99 98 Oximetry Constitutional: other (Arousable to verbal stimulation) ENT: oropharynx moist, other (Orally intubated) Ascultation: Bilateral: rhonchi Cardiovascular: regular rate and rhythm (With episodes of tachycardia) Gastrointestinal: normoactive bowel sounds, soft, non-tender CBC and BMP: 06/07/21 Unknown 06/07/21 Unknown ABG, PT/INR, D-dimer: ABG ABG pH 7.406 (7.320-7.450) 06/04/21 04:00 POC ABG pCO2 51.5 mmHg (32.0-48.0) H 06/04/21 04:00 ABG pCO2 54.4 mm Hg 06/02/21 05:42 POC ABG pO2 61.7 mmHg (83-108) L 06/04/21 04:00 ABG pO2 141.2 mm Hg (80.0-90.0) H 06/02/21 05:42 POC ABG HCO3 31.6 06/04/21 04:00 ABG O2 Saturation 92.7 (0-100) 06/04/21 04:00 PT/INR, D-dimer PT 15.8 Sec. (12.2-14.9) H 06/04/21 04:10 INR 1.14 (0.87-1.13) H 06/04/21 04:10 Abnormal lab findings: Abnormal Labs 05/23/21 05/23/21 05/23/21 05:55 09:38 09:38 WBC RBC 5.09 H Hgb Hct 46.2 H MCH MCHC RDW Plt Count Lymph % (Auto) Gordon % (Auto) Gordon # (Auto) Seg Neutrophils % Seg Neuts % (Manual) Lymphocytes % (Manual) Seg Neutrophils # Seg Neutrophils # Man Lymphocytes # (Manual) PT INR Heparin Anti-Xa Level ABG pH 7.265 L POC ABG pCO2 POC ABG pO2 ABG pO2 ABG HCO3 ABG O2 Saturation 94.6 L ABG Base Excess -4.5 L ABG Hemoglobin ABG Oxyhemoglobin ABG Potassium ABG Glucose Oxyhemoglobin 92.3 L Carboxyhemoglobin Sodium Potassium Chloride Carbon Dioxide 20 L BUN Creatinine Glucose 147 H POC Glucose Lactic Acid Calcium Phosphorus Magnesium Total Bilirubin Direct Bilirubin AST Total Creatine Kinase C-Reactive Protein NT-Pro-B Natriuret Pep Total Protein Albumin 3.6 L Triglycerides Arterial Blood Glucose Urine WBC (Auto) Salicylates Acetaminophen 05/23/21 05/23/21 05/23/21 09:38 09:38 09:38 WBC RBC Hgb Hct MCH MCHC RDW Plt Count Lymph % (Auto) Gordon % (Auto) Gordon # (Auto) Seg Neutrophils % Seg Neuts % (Manual) Lymphocytes % (Manual) Seg Neutrophils # Seg Neutrophils # Man Lymphocytes # (Manual) PT INR Heparin Anti-Xa Level ABG pH POC ABG pCO2 POC ABG pO2 ABG pO2 ABG HCO3 ABG O2 Saturation ABG Base Excess ABG Hemoglobin ABG Oxyhemoglobin ABG Potassium ABG Glucose Oxyhemoglobin Carboxyhemoglobin Sodium Potassium Chloride Carbon Dioxide BUN Creatinine Glucose POC Glucose Lactic Acid Calcium Phosphorus Magnesium Total Bilirubin Direct Bilirubin AST Total Creatine Kinase C-Reactive Protein NT-Pro-B Natriuret Pep 6058 H Total Protein Albumin Triglycerides Arterial Blood Glucose Urine WBC (Auto) Salicylates < 0.3 L Acetaminophen 5.0 L 05/23/21 05/23/21 05/24/21 12:49 Unknown 03:44 WBC RBC Hgb Hct MCH MCHC RDW Plt Count Lymph % (Auto) Gordon % (Auto) Gordon # (Auto) Seg Neutrophils % Seg Neuts % (Manual) Lymphocytes % (Manual) Seg Neutrophils # Seg Neutrophils # Man Lymphocytes # (Manual) PT INR Heparin Anti-Xa Level ABG pH 7.208 L 7.241 L POC ABG pCO2 POC ABG pO2 ABG pO2 52.2 L ABG HCO3 ABG O2 Saturation 93.5 L 83.7 L ABG Base Excess -6.7 L -3.7 L ABG Hemoglobin ABG Oxyhemoglobin ABG Potassium 5.6 H ABG Glucose 53 L Oxyhemoglobin 91.1 L 81.1 L Carboxyhemoglobin Sodium Potassium Chloride Carbon Dioxide BUN Creatinine Glucose POC Glucose Lactic Acid Calcium Phosphorus Magnesium Total Bilirubin Direct Bilirubin AST Total Creatine Kinase C-Reactive Protein NT-Pro-B Natriuret Pep Total Protein Albumin Triglycerides Arterial Blood Glucose 53 L Urine WBC (Auto) Salicylates Acetaminophen 05/24/21 05/24/21 05/24/21 05:14 05:14 09:35 WBC 23.3 H RBC 5.23 H Hgb Hct 47.3 H MCH MCHC RDW 15.3 H Plt Count Lymph % (Auto) Gordon % (Auto) Gordon # (Auto) Seg Neutrophils % Seg Neuts % (Manual) 12.0 L Lymphocytes % (Manual) 3.0 L Seg Neutrophils # Seg Neutrophils # Man Lymphocytes # (Manual) 0.7 L PT INR Heparin Anti-Xa Level ABG pH POC ABG pCO2 POC ABG pO2 ABG pO2 ABG HCO3 ABG O2 Saturation ABG Base Excess ABG Hemoglobin ABG Oxyhemoglobin ABG Potassium ABG Glucose Oxyhemoglobin Carboxyhemoglobin Sodium Potassium 6.3 H* D Chloride 107.3 H Carbon Dioxide 20 L BUN 33 H Creatinine 3.5 H D Glucose 56 L POC Glucose Lactic Acid Calcium Phosphorus Magnesium Total Bilirubin 1.90 H Direct Bilirubin AST Total Creatine Kinase 556 H C-Reactive Protein NT-Pro-B Natriuret Pep Total Protein 4.9 L D Albumin 2.8 L Triglycerides Arterial Blood Glucose Urine WBC (Auto) Salicylates Acetaminophen 05/24/21 05/24/21 05/25/21 19:45 Unknown 04:23 WBC 20.1 H RBC Hgb Hct MCH MCHC 31 L RDW 15.5 H Plt Count Lymph % (Auto) Gordon % (Auto) Gordon # (Auto) Seg Neutrophils % Seg Neuts % (Manual) 94.0 H Lymphocytes % (Manual) 5.0 L Seg Neutrophils # Seg Neutrophils # Man 18.9 H Lymphocytes # (Manual) 1.0 L PT INR Heparin Anti-Xa Level ABG pH POC ABG pCO2 POC ABG pO2 ABG pO2 ABG HCO3 ABG O2 Saturation ABG Base Excess ABG Hemoglobin ABG Oxyhemoglobin ABG Potassium ABG Glucose Oxyhemoglobin Carboxyhemoglobin Sodium Potassium 5.7 H Chloride 108.9 H Carbon Dioxide 21 L BUN 36 H Creatinine 2.6 H Glucose 108 H POC Glucose Lactic Acid Calcium Phosphorus Magnesium Total Bilirubin Direct Bilirubin AST Total Creatine Kinase C-Reactive Protein NT-Pro-B Natriuret Pep Total Protein Albumin Triglycerides Arterial Blood Glucose Urine WBC (Auto) 78.0 H Salicylates Acetaminophen 05/25/21 05/25/21 05/25/21 04:23 09:14 11:46 WBC RBC Hgb Hct MCH MCHC RDW Plt Count Lymph % (Auto) Gordon % (Auto) Gordon # (Auto) Seg Neutrophils % Seg Neuts % (Manual) Lymphocytes % (Manual) Seg Neutrophils # Seg Neutrophils # Man Lymphocytes # (Manual) PT INR Heparin Anti-Xa Level ABG pH POC ABG pCO2 POC ABG pO2 ABG pO2 ABG HCO3 ABG O2 Saturation ABG Base Excess ABG Hemoglobin ABG Oxyhemoglobin ABG Potassium ABG Glucose Oxyhemoglobin Carboxyhemoglobin Sodium Potassium Chloride 111.4 H Carbon Dioxide 18 L BUN 33 H Creatinine 1.9 H Glucose 121 H POC Glucose Lactic Acid 2.40 H* 2.60 H* Calcium Phosphorus Magnesium Total Bilirubin Direct Bilirubin AST Total Creatine Kinase C-Reactive Protein NT-Pro-B Natriuret Pep Total Protein Albumin Triglycerides Arterial Blood Glucose Urine WBC (Auto) Salicylates Acetaminophen 05/25/21 05/26/21 05/26/21 18:00 03:16 05:55 WBC 22.0 H RBC Hgb Hct MCH MCHC RDW 15.3 H Plt Count Lymph % (Auto) Gordon % (Auto) Gordon # (Auto) Seg Neutrophils % Seg Neuts % (Manual) 96.0 H Lymphocytes % (Manual) 2.0 L Seg Neutrophils # Seg Neutrophils # Man 21.1 H Lymphocytes # (Manual) 0.4 L PT INR Heparin Anti-Xa Level ABG pH POC ABG pCO2 POC ABG pO2 ABG pO2 208.2 H ABG HCO3 ABG O2 Saturation 99.3 H ABG Base Excess -2.7 L -2.6 L ABG Hemoglobin 13.7 L 13.0 L ABG Oxyhemoglobin ABG Potassium ABG Glucose Oxyhemoglobin 94.8 L Carboxyhemoglobin Sodium Potassium Chloride Carbon Dioxide BUN Creatinine Glucose POC Glucose Lactic Acid Calcium Phosphorus Magnesium Total Bilirubin Direct Bilirubin AST Total Creatine Kinase C-Reactive Protein NT-Pro-B Natriuret Pep Total Protein Albumin Triglycerides Arterial Blood Glucose Urine WBC (Auto) Salicylates Acetaminophen 05/26/21 05/27/21 05/27/21 05:55 03:18 03:18 WBC 21.5 H RBC Hgb Hct MCH MCHC RDW 15.5 H Plt Count Lymph % (Auto) Gordon % (Auto) Gordon # (Auto) Seg Neutrophils % Seg Neuts % (Manual) 92.0 H Lymphocytes % (Manual) 5.0 L Seg Neutrophils # Seg Neutrophils # Man 19.8 H Lymphocytes # (Manual) 1.1 L PT INR Heparin Anti-Xa Level ABG pH POC ABG pCO2 POC ABG pO2 ABG pO2 ABG HCO3 ABG O2 Saturation ABG Base Excess ABG Hemoglobin ABG Oxyhemoglobin ABG Potassium ABG Glucose Oxyhemoglobin Carboxyhemoglobin Sodium 148 H Potassium Chloride 111.3 H 113.8 H Carbon Dioxide 21 L 20 L BUN 23 H Creatinine Glucose 102 H 103 H POC Glucose Lactic Acid Calcium 8.3 L Phosphorus Magnesium Total Bilirubin 7.80 H Direct Bilirubin AST 112 H Total Creatine Kinase C-Reactive Protein NT-Pro-B Natriuret Pep Total Protein 5.2 L Albumin 2.9 L Triglycerides Arterial Blood Glucose Urine WBC (Auto) Salicylates Acetaminophen 05/27/21 05/28/21 05/28/21 03:18 05:55 10:05 WBC 11.4 H RBC Hgb Hct MCH MCHC RDW 15.5 H Plt Count Lymph % (Auto) 11.2 L Gordon % (Auto) 8.6 H Gordon # (Auto) 1.0 H Seg Neutrophils % 78.9 H Seg Neuts % (Manual) Lymphocytes % (Manual) Seg Neutrophils # 9.0 H Seg Neutrophils # Man Lymphocytes # (Manual) PT INR Heparin Anti-Xa Level ABG pH POC ABG pCO2 POC ABG pO2 ABG pO2 104.7 H ABG HCO3 ABG O2 Saturation ABG Base Excess -3.1 L ABG Hemoglobin 13.2 L ABG Oxyhemoglobin ABG Potassium ABG Glucose Oxyhemoglobin Carboxyhemoglobin Sodium Potassium Chloride Carbon Dioxide BUN Creatinine Glucose POC Glucose Lactic Acid Calcium Phosphorus Magnesium Total Bilirubin 7.90 H Direct Bilirubin 6.0 H AST 114 H Total Creatine Kinase C-Reactive Protein NT-Pro-B Natriuret Pep Total Protein 5.2 L Albumin 2.8 L Triglycerides Arterial Blood Glucose Urine WBC (Auto) Salicylates Acetaminophen 05/28/21 05/28/21 05/28/21 10:05 10:05 10:05 WBC RBC Hgb Hct MCH MCHC RDW Plt Count Lymph % (Auto) Gordon % (Auto) Gordon # (Auto) Seg Neutrophils % Seg Neuts % (Manual) Lymphocytes % (Manual) Seg Neutrophils # Seg Neutrophils # Man Lymphocytes # (Manual) PT INR Heparin Anti-Xa Level ABG pH POC ABG pCO2 POC ABG pO2 ABG pO2 ABG HCO3 ABG O2 Saturation ABG Base Excess ABG Hemoglobin ABG Oxyhemoglobin ABG Potassium ABG Glucose Oxyhemoglobin Carboxyhemoglobin Sodium 149 H Potassium Chloride 119.9 H Carbon Dioxide 18 L BUN Creatinine Glucose 103 H POC Glucose Lactic Acid 2.10 H* Calcium Phosphorus Magnesium Total Bilirubin Direct Bilirubin AST Total Creatine Kinase C-Reactive Protein 34.80 H NT-Pro-B Natriuret Pep Total Protein Albumin Triglycerides Arterial Blood Glucose Urine WBC (Auto) Salicylates Acetaminophen 05/29/21 05/29/21 05/29/21 03:00 05:02 05:02 WBC 13.0 H RBC Hgb Hct MCH MCHC RDW 15.4 H Plt Count Lymph % (Auto) Gordon % (Auto) Gordon # (Auto) Seg Neutrophils % Seg Neuts % (Manual) Lymphocytes % (Manual) Seg Neutrophils # Seg Neutrophils # Man Lymphocytes # (Manual) PT INR Heparin Anti-Xa Level ABG pH POC ABG pCO2 POC ABG pO2 ABG pO2 138.1 H ABG HCO3 ABG O2 Saturation ABG Base Excess -3.6 L ABG Hemoglobin 12.8 L ABG Oxyhemoglobin ABG Potassium ABG Glucose Oxyhemoglobin Carboxyhemoglobin Sodium 150 H Potassium Chloride 119.8 H Carbon Dioxide 18 L BUN Creatinine Glucose 109 H POC Glucose Lactic Acid Calcium Phosphorus 2.20 L Magnesium 1.50 L Total Bilirubin Direct Bilirubin AST Total Creatine Kinase C-Reactive Protein NT-Pro-B Natriuret Pep Total Protein Albumin Triglycerides Arterial Blood Glucose Urine WBC (Auto) Salicylates Acetaminophen 05/29/21 05/29/21 05/30/21 17:00 23:37 04:29 WBC RBC Hgb 10.8 L Hct 33.4 L MCH MCHC RDW 15.7 H Plt Count Lymph % (Auto) Gordon % (Auto) Gordon # (Auto) Seg Neutrophils % Seg Neuts % (Manual) Lymphocytes % (Manual) Seg Neutrophils # Seg Neutrophils # Man Lymphocytes # (Manual) PT INR Heparin Anti-Xa Level ABG pH POC ABG pCO2 POC ABG pO2 ABG pO2 ABG HCO3 ABG O2 Saturation ABG Base Excess ABG Hemoglobin ABG Oxyhemoglobin ABG Potassium ABG Glucose Oxyhemoglobin Carboxyhemoglobin Sodium Potassium Chloride Carbon Dioxide BUN Creatinine Glucose POC Glucose 114 H 122 H Lactic Acid Calcium Phosphorus Magnesium Total Bilirubin Direct Bilirubin AST Total Creatine Kinase C-Reactive Protein NT-Pro-B Natriuret Pep Total Protein Albumin Triglycerides Arterial Blood Glucose Urine WBC (Auto) Salicylates Acetaminophen 05/30/21 05/30/21 05/31/21 04:29 23:36 04:00 WBC 11.2 H RBC Hgb 10.9 L Hct 34.3 L MCH MCHC RDW 15.4 H Plt Count Lymph % (Auto) Gordon % (Auto) Gordon # (Auto) Seg Neutrophils % Seg Neuts % (Manual) Lymphocytes % (Manual) Seg Neutrophils # Seg Neutrophils # Man Lymphocytes # (Manual) PT INR Heparin Anti-Xa Level ABG pH POC ABG pCO2 POC ABG pO2 ABG pO2 ABG HCO3 ABG O2 Saturation ABG Base Excess ABG Hemoglobin ABG Oxyhemoglobin ABG Potassium ABG Glucose Oxyhemoglobin Carboxyhemoglobin Sodium Potassium 3.2 L Chloride 112.4 H Carbon Dioxide 21 L BUN Creatinine 0.7 L Glucose 128 H POC Glucose 120 H Lactic Acid Calcium Phosphorus Magnesium Total Bilirubin Direct Bilirubin AST Total Creatine Kinase C-Reactive Protein NT-Pro-B Natriuret Pep Total Protein Albumin Triglycerides Arterial Blood Glucose Urine WBC (Auto) Salicylates Acetaminophen 05/31/21 05/31/21 05/31/21 04:00 11:50 16:16 WBC RBC Hgb Hct MCH MCHC RDW Plt Count Lymph % (Auto) Gordon % (Auto) Gordon # (Auto) Seg Neutrophils % Seg Neuts % (Manual) Lymphocytes % (Manual) Seg Neutrophils # Seg Neutrophils # Man Lymphocytes # (Manual) PT INR Heparin Anti-Xa Level ABG pH POC ABG pCO2 POC ABG pO2 ABG pO2 ABG HCO3 ABG O2 Saturation ABG Base Excess ABG Hemoglobin ABG Oxyhemoglobin ABG Potassium ABG Glucose Oxyhemoglobin Carboxyhemoglobin Sodium 148 H Potassium Chloride 114.8 H Carbon Dioxide BUN Creatinine Glucose 151 H POC Glucose 123 H 107 H Lactic Acid Calcium Phosphorus Magnesium Total Bilirubin Direct Bilirubin AST Total Creatine Kinase C-Reactive Protein NT-Pro-B Natriuret Pep Total Protein Albumin Triglycerides Arterial Blood Glucose Urine WBC (Auto) Salicylates Acetaminophen 06/01/21 06/01/21 06/01/21 02:55 04:10 04:10 WBC 16.5 H RBC Hgb Hct MCH MCHC RDW 16.0 H Plt Count Lymph % (Auto) Gordon % (Auto) Gordon # (Auto) Seg Neutrophils % Seg Neuts % (Manual) Lymphocytes % (Manual) Seg Neutrophils # Seg Neutrophils # Man Lymphocytes # (Manual) PT INR Heparin Anti-Xa Level ABG pH 7.334 L POC ABG pCO2 POC ABG pO2 ABG pO2 ABG HCO3 26.1 H ABG O2 Saturation ABG Base Excess ABG Hemoglobin 12.6 L ABG Oxyhemoglobin ABG Potassium ABG Glucose Oxyhemoglobin 93.1 L Carboxyhemoglobin Sodium 148 H Potassium 3.4 L Chloride 108.8 H Carbon Dioxide BUN Creatinine Glucose 113 H POC Glucose Lactic Acid Calcium Phosphorus Magnesium Total Bilirubin Direct Bilirubin AST Total Creatine Kinase C-Reactive Protein NT-Pro-B Natriuret Pep Total Protein Albumin Triglycerides Arterial Blood Glucose Urine WBC (Auto) Salicylates Acetaminophen 06/01/21 06/01/21 06/02/21 12:46 15:30 05:42 WBC RBC Hgb Hct MCH MCHC RDW Plt Count Lymph % (Auto) Gordon % (Auto) Gordon # (Auto) Seg Neutrophils % Seg Neuts % (Manual) Lymphocytes % (Manual) Seg Neutrophils # Seg Neutrophils # Man Lymphocytes # (Manual) PT INR Heparin Anti-Xa Level ABG pH POC ABG pCO2 POC ABG pO2 ABG pO2 114.5 H 141.2 H ABG HCO3 29.6 H 30.6 H ABG O2 Saturation ABG Base Excess 4.5 H 4.1 H ABG Hemoglobin 11.8 L 12.0 L ABG Oxyhemoglobin ABG Potassium ABG Glucose Oxyhemoglobin Carboxyhemoglobin Sodium Potassium Chloride Carbon Dioxide BUN Creatinine Glucose POC Glucose 119 H Lactic Acid Calcium Phosphorus Magnesium Total Bilirubin Direct Bilirubin AST Total Creatine Kinase C-Reactive Protein NT-Pro-B Natriuret Pep Total Protein Albumin Triglycerides Arterial Blood Glucose Urine WBC (Auto) Salicylates Acetaminophen 06/02/21 06/02/21 06/02/21 07:41 07:41 07:41 WBC 17.4 H RBC Hgb 11.1 L Hct 34.3 L MCH MCHC RDW 15.9 H Plt Count Lymph % (Auto) Gordon % (Auto) Gordon # (Auto) Seg Neutrophils % Seg Neuts % (Manual) Lymphocytes % (Manual) Seg Neutrophils # Seg Neutrophils # Man Lymphocytes # (Manual) PT INR Heparin Anti-Xa Level ABG pH POC ABG pCO2 POC ABG pO2 ABG pO2 ABG HCO3 ABG O2 Saturation ABG Base Excess ABG Hemoglobin ABG Oxyhemoglobin ABG Potassium ABG Glucose Oxyhemoglobin Carboxyhemoglobin Sodium 150 H Potassium Chloride 111.8 H Carbon Dioxide BUN Creatinine Glucose POC Glucose Lactic Acid Calcium Phosphorus Magnesium Total Bilirubin 3.30 H Direct Bilirubin 2.4 H AST 48 H Total Creatine Kinase C-Reactive Protein NT-Pro-B Natriuret Pep Total Protein 6.1 L Albumin 2.1 L Triglycerides Arterial Blood Glucose Urine WBC (Auto) Salicylates Acetaminophen 06/02/21 06/02/21 06/03/21 20:00 23:30 08:29 WBC 12.2 H RBC Hgb 11.7 L Hct MCH 27 L MCHC 31 L RDW 15.4 H Plt Count Lymph % (Auto) Gordon % (Auto) Gordon # (Auto) Seg Neutrophils % Seg Neuts % (Manual) Lymphocytes % (Manual) Seg Neutrophils # Seg Neutrophils # Man Lymphocytes # (Manual) PT INR Heparin Anti-Xa Level ABG pH POC ABG pCO2 POC ABG pO2 ABG pO2 ABG HCO3 ABG O2 Saturation ABG Base Excess ABG Hemoglobin ABG Oxyhemoglobin ABG Potassium ABG Glucose Oxyhemoglobin Carboxyhemoglobin Sodium Potassium Chloride 111.1 H Carbon Dioxide BUN Creatinine 0.7 L Glucose 105 H POC Glucose 112 H Lactic Acid Calcium 8.3 L Phosphorus Magnesium Total Bilirubin 2.90 H Direct Bilirubin AST 53 H Total Creatine Kinase C-Reactive Protein NT-Pro-B Natriuret Pep Total Protein 6.2 L Albumin 1.8 L Triglycerides Arterial Blood Glucose Urine WBC (Auto) Salicylates Acetaminophen 06/03/21 06/03/21 06/04/21 Unknown Unknown 04:00 WBC RBC Hgb 10.2 L Hct 31.9 L D MCH MCHC RDW Plt Count Lymph % (Auto) Gordon % (Auto) Gordon # (Auto) Seg Neutrophils % Seg Neuts % (Manual) Lymphocytes % (Manual) Seg Neutrophils # Seg Neutrophils # Man Lymphocytes # (Manual) PT 16.7 H INR 1.22 H Heparin Anti-Xa Level ABG pH POC ABG pCO2 51.5 H POC ABG pO2 61.7 L ABG pO2 ABG HCO3 ABG O2 Saturation ABG Base Excess ABG Hemoglobin ABG Oxyhemoglobin 90.9 L ABG Potassium ABG Glucose Oxyhemoglobin Carboxyhemoglobin 1.6 H Sodium Potassium Chloride Carbon Dioxide BUN Creatinine Glucose POC Glucose Lactic Acid Calcium Phosphorus Magnesium Total Bilirubin Direct Bilirubin AST Total Creatine Kinase C-Reactive Protein NT-Pro-B Natriuret Pep Total Protein Albumin Triglycerides Arterial Blood Glucose Urine WBC (Auto) Salicylates Acetaminophen 06/04/21 06/04/21 06/04/21 04:10 04:10 04:10 WBC 11.7 H RBC Hgb 11.2 L Hct MCH MCHC 31 L RDW 15.8 H Plt Count 447 H Lymph % (Auto) Gordon % (Auto) Gordon # (Auto) Seg Neutrophils % Seg Neuts % (Manual) Lymphocytes % (Manual) Seg Neutrophils # Seg Neutrophils # Man Lymphocytes # (Manual) PT 15.8 H INR 1.14 H Heparin Anti-Xa Level ABG pH POC ABG pCO2 POC ABG pO2 ABG pO2 ABG HCO3 ABG O2 Saturation ABG Base Excess ABG Hemoglobin ABG Oxyhemoglobin ABG Potassium ABG Glucose Oxyhemoglobin Carboxyhemoglobin Sodium 146 H Potassium Chloride 109.4 H Carbon Dioxide BUN Creatinine 0.6 L Glucose 122 H POC Glucose Lactic Acid Calcium Phosphorus Magnesium Total Bilirubin Direct Bilirubin AST Total Creatine Kinase C-Reactive Protein NT-Pro-B Natriuret Pep Total Protein Albumin Triglycerides 161 H Arterial Blood Glucose Urine WBC (Auto) Salicylates Acetaminophen 06/04/21 06/05/21 06/05/21 05:16 04:00 04:00 WBC RBC Hgb 11.3 L Hct 34.9 L MCH MCHC RDW 16.0 H Plt Count 515 H Lymph % (Auto) Gordon % (Auto) Gordon # (Auto) Seg Neutrophils % Seg Neuts % (Manual) Lymphocytes % (Manual) Seg Neutrophils # Seg Neutrophils # Man Lymphocytes # (Manual) PT INR Heparin Anti-Xa Level ABG pH POC ABG pCO2 POC ABG pO2 ABG pO2 ABG HCO3 ABG O2 Saturation ABG Base Excess ABG Hemoglobin ABG Oxyhemoglobin ABG Potassium ABG Glucose Oxyhemoglobin Carboxyhemoglobin Sodium Potassium 3.5 L Chloride Carbon Dioxide BUN 7 L Creatinine 0.6 L Glucose 131 H POC Glucose 107 H Lactic Acid Calcium Phosphorus Magnesium Total Bilirubin Direct Bilirubin AST Total Creatine Kinase C-Reactive Protein NT-Pro-B Natriuret Pep Total Protein Albumin Triglycerides Arterial Blood Glucose Urine WBC (Auto) Salicylates Acetaminophen 06/05/21 06/05/21 06/05/21 04:00 05:32 11:20 WBC RBC Hgb Hct MCH MCHC RDW Plt Count Lymph % (Auto) Gordon % (Auto) Gordon # (Auto) Seg Neutrophils % Seg Neuts % (Manual) Lymphocytes % (Manual) Seg Neutrophils # Seg Neutrophils # Man Lymphocytes # (Manual) PT INR Heparin Anti-Xa Level < 0.10 L 0.21 L ABG pH POC ABG pCO2 POC ABG pO2 ABG pO2 ABG HCO3 ABG O2 Saturation ABG Base Excess ABG Hemoglobin ABG Oxyhemoglobin ABG Potassium ABG Glucose Oxyhemoglobin Carboxyhemoglobin Sodium Potassium Chloride Carbon Dioxide BUN Creatinine Glucose POC Glucose 123 H Lactic Acid Calcium Phosphorus Magnesium Total Bilirubin Direct Bilirubin AST Total Creatine Kinase C-Reactive Protein NT-Pro-B Natriuret Pep Total Protein Albumin Triglycerides Arterial Blood Glucose Urine WBC (Auto) Salicylates Acetaminophen 06/05/21 06/05/21 06/06/21 12:15 17:12 02:02 WBC RBC Hgb Hct MCH MCHC RDW Plt Count Lymph % (Auto) Gordon % (Auto) Gordon # (Auto) Seg Neutrophils % Seg Neuts % (Manual) Lymphocytes % (Manual) Seg Neutrophils # Seg Neutrophils # Man Lymphocytes # (Manual) PT INR Heparin Anti-Xa Level ABG pH POC ABG pCO2 POC ABG pO2 ABG pO2 ABG HCO3 ABG O2 Saturation ABG Base Excess ABG Hemoglobin ABG Oxyhemoglobin ABG Potassium ABG Glucose Oxyhemoglobin Carboxyhemoglobin Sodium Potassium Chloride Carbon Dioxide BUN Creatinine Glucose POC Glucose 120 H 119 H 130 H Lactic Acid Calcium Phosphorus Magnesium Total Bilirubin Direct Bilirubin AST Total Creatine Kinase C-Reactive Protein NT-Pro-B Natriuret Pep Total Protein Albumin Triglycerides Arterial Blood Glucose Urine WBC (Auto) Salicylates Acetaminophen 06/06/21 06/06/21 06/06/21 04:00 04:00 10:00 WBC RBC Hgb 10.7 L Hct 33.6 L MCH MCHC RDW 16.2 H Plt Count 537 H Lymph % (Auto) Gordon % (Auto) Gordon # (Auto) Seg Neutrophils % Seg Neuts % (Manual) Lymphocytes % (Manual) Seg Neutrophils # Seg Neutrophils # Man Lymphocytes # (Manual) PT INR Heparin Anti-Xa Level 0.14 L ABG pH POC ABG pCO2 POC ABG pO2 ABG pO2 ABG HCO3 ABG O2 Saturation ABG Base Excess ABG Hemoglobin ABG Oxyhemoglobin ABG Potassium ABG Glucose Oxyhemoglobin Carboxyhemoglobin Sodium 153 H D Potassium 3.4 L Chloride 115.1 H Carbon Dioxide BUN 6 L Creatinine 0.5 L Glucose 110 H POC Glucose Lactic Acid Calcium 7.7 L Phosphorus Magnesium 1.40 L Total Bilirubin Direct Bilirubin AST Total Creatine Kinase C-Reactive Protein NT-Pro-B Natriuret Pep Total Protein Albumin Triglycerides Arterial Blood Glucose Urine WBC (Auto) Salicylates Acetaminophen 06/06/21 06/06/21 06/06/21 11:31 17:45 23:04 WBC RBC Hgb Hct MCH MCHC RDW Plt Count Lymph % (Auto) Gordon % (Auto) Gordon # (Auto) Seg Neutrophils % Seg Neuts % (Manual) Lymphocytes % (Manual) Seg Neutrophils # Seg Neutrophils # Man Lymphocytes # (Manual) PT INR Heparin Anti-Xa Level 0.11 L ABG pH POC ABG pCO2 POC ABG pO2 ABG pO2 ABG HCO3 ABG O2 Saturation ABG Base Excess ABG Hemoglobin ABG Oxyhemoglobin ABG Potassium ABG Glucose Oxyhemoglobin Carboxyhemoglobin Sodium Potassium Chloride Carbon Dioxide BUN Creatinine Glucose POC Glucose 112 H 113 H Lactic Acid Calcium Phosphorus Magnesium Total Bilirubin Direct Bilirubin AST Total Creatine Kinase C-Reactive Protein NT-Pro-B Natriuret Pep Total Protein Albumin Triglycerides Arterial Blood Glucose Urine WBC (Auto) Salicylates Acetaminophen 06/07/21 06/07/21 06/07/21 05:27 Unknown Unknown WBC RBC 3.38 L Hgb 9.8 L Hct 29.4 L MCH MCHC RDW 16.2 H Plt Count 473 H Lymph % (Auto) Gordon % (Auto) Gordon # (Auto) Seg Neutrophils % Seg Neuts % (Manual) Lymphocytes % (Manual) Seg Neutrophils # Seg Neutrophils # Man Lymphocytes # (Manual) PT INR Heparin Anti-Xa Level ABG pH POC ABG pCO2 POC ABG pO2 ABG pO2 ABG HCO3 ABG O2 Saturation ABG Base Excess ABG Hemoglobin ABG Oxyhemoglobin ABG Potassium ABG Glucose Oxyhemoglobin Carboxyhemoglobin Sodium Potassium Chloride 107.4 H Carbon Dioxide BUN 8 L Creatinine 0.6 L Glucose 123 H POC Glucose 111 H Lactic Acid Calcium Phosphorus 2.30 L Magnesium Total Bilirubin Direct Bilirubin AST Total Creatine Kinase C-Reactive Protein NT-Pro-B Natriuret Pep Total Protein Albumin Triglycerides Arterial Blood Glucose Urine WBC (Auto) Salicylates Acetaminophen Allied health notes reviewed: nursing
--- NOTE | 2021-06-07 10:41 | Progress Note ---
<RISSA DAHL - Last Filed: 06/07/21 16:25> Assessment and Plan Assessment and plan: This is a 40-year-old male with known history of HFrEF, methamphetamine dependence, and nicotine dependence admitted for drug overdose and acute metabolic encephalopathy. Patient went into respiratory failure and was intubated requiring ventilatory support s/p trach and PEG. Hospital Course to date: 05/25/2021: Worsening interstitial infiltrates. unclear if this is a developing pneumonia from aspiration/volume overload. Empiric abx coverage. ECHO with bubble study ordered. Placed on iv abx. kidney function improving. 05/26/2021: Tachycardic on levo gtt, advised RN to titrate down as long as MAP > 65. HR improved on my follow up encounter. PCCM titrating vent down. Renal function improving....Cr now 1.3. No indication for SPUDDER at this time per nephro. 05/27/2021: Extubated yesterday however in respiratory distress, re-intubated. Patient has severe systolic heart failure. Cardiology consulted for severe systolic heart failure. Will need to discuss optimal strategy regarding diuresis. 05/28: Patient remains on the vent. Febrile overnight, no longer on IV abx, leukocytosis improved, will panculture patient for now hold off on IV Abx. D/W CCM plan to wean sedation, depends on patient's mental status possible extubation today. Patient with low EF 20 to 25%, IVF D/nickolas. FWF for hypernatrenia, repeat lab in the am. 05/29- With increased agitation and tachycardia, maxed out on precedex and fentanyl gtt. Patient appears to be in withdrawal, Ativan added. Remains febrile, off pressors this am, leukocytosis improved. Continue to f/u on culture data. Hypernatremia this am, on D5w per nephro, electrolyte repleted, repeat labs in the am 05/30: Patient very aggresive this am maxed on sedation, X1 dose of Geodeon ordered. Now on low dose Levophed, patient still with low grade fevers this am. Hypotension is probably r/t sedation. Recent cultures with NGTD, UA negative. Continue to monitor for now. Na improved, IVF off this and K repleted, repeat labs in the am. 05/31: Patient was extubated today, IV fluid discontinued, given Lasix per cardiology, increasing free water flush. Weaned off Levophed. Patient noted to be lethargic several hours post Precedex infusion discontinuation. Patient extubated to BiPAP after given racemic epinephrine. Patient remains lethargic and off of BiPAP will consider CT head in the a.m. 06/01: Patient remained on BiPAP overnight, given agitation as needed Haldol/Ativan and Benadryl given while patient remained maxed on Precedex. Given increased work of breathing and tachypnea patient was electively reintubated. Free water flushes/tube feeding/p.o. medications to restart upon c onfirmation of DHT. Lasix stopped per cardiology recommendations. CT head ordered. 06/02: Started on midodrine 3 times daily per cardiology as patient has soft blood pressures and required Levophed overnight. Upper extremity with PICC noted to have significant swelling and possible discoloration around insertion site. Ordered RN to remove PICC and use peripheral IVs as patient does not have any medications requiring central access at this time. Hypernatremia worsened however patient did not receive multiple doses of free water flush while on continuous BiPAP. [facility] made vent changes. Surgery consulted. 06/03: Patient noted to have an acute DVT in right upper extremity and started on heparin drip. data collection technician noted possible foreign object retained and vascular surgery was consulted. Obtain CT of upper extremity. Surgery was consulted for trach/PEG. Patient remains on max doses of fentanyl, propofol and Precedex. Versed added. Started on Unasyn. MRI brain ordered. 06/04: Patient received a trach/PEG today, remains on propofol, Versed, fentanyl. Heparin drip off and tube feeding off for surgery. 06/05: Tracheal aspirate grew Enterobacter which is sensitive to ampicillin which the patient was still on. Slight hypokalemia noted reduce repleted. Patient remains on Precedex, propofol and Versed for sedation. Bilateral soft restraints in place. [facility] will hold off weaning trials as patient is still not adequate sedated. Heparin drip resumed. 06/06: Started on Seroquel twice daily in efforts to wean off sedation. Hypernatremia and hyperchloremia noted and free water flush increased, potassium and magnesium repleted. 06/07: Back on sedation overnight due to increase agitation. Plan to wean off propofol, continue daily PST. No longer of pressors, BB and lasix resumed to prevent worsening pulmonary edema/worse pulmonary status. AC was also switched to PO Elquis for DVT. Possible LTAC placement, case management to arrange. Assessment and Plan #Acute hypoxic respiratory failure #Bilateral Pneumonia #Possible Aspiration - Intially Intubated in the ED on 05/23 for airway protection - Extubated and reintubated on 05/27 for respiratory distress - Extubated on 05/31, was reintubated on 06/01 - 06/04 s/p Trach and PEG by Gen Surgery - Vent Setting:A/C-30%,6,20,350 - [facility] consulted, appreciate recommendations - Continue Nebs per CCM - VAP bundle addressed - Aspiration precaution HOB above 30 - Daily SBT - PRN ABG and CXR per CCM - Continue SPO2 monitoring for SPO2 goal above 92% - Plan for possible LTAC placement- Case management to arrange #HFrEF #Cardiomegaly - Cardiology on consult, appreciated recommendations - 05/25/2021: Echo- EF 20 to 25%. Severe global hypokinesis of left ventricle. Left ventricle is moderately dilated. Doppler flow suggests impaired LV relaxation. Moderate mitral regurgitation. No pericardial effusion - 08/04/2020: Cardiac cath- Angiographically normal coronary arteries. This is indicative of a nonischemic cardiomyopathy. Mildly elevated biventricular filling pressures with normal cardiac index - 08/02/2020: Echo- EF 18%,Severe global LV hypokinesis. Normal LV diastolic function. LA mildly dilated. Moderate mitral regurgitation with an eccentric MR jet(s),No previous echocardiogram for comparison. - Patient is off pressors - BP normalized, midodrine has been held - BB and Lasix resumed - Continue blood pressure monitor per protocol - Maintain MAP above 65 #Acute Toxic Metabolic Encephalopathy #Overdose by Ingestion #H/o Polysubstance Abuse - amphetamines in tox screen - Back on sedation ovenight due to increase agitation - Plan to wean off propofol, continue Dex and fentanyl - On Seroquel - Continue PRN Ativan added - Titrate sedation for RASS goal of 0 to -1 - Prn analgesia for CPOT greater than 3 - Maintenance of sleep-wake cycle #Acute Kidney Injury due to Acute Tubular Necrosis #Hypokalemia #Hypernatremia-improved - Cr: 3.5 on 03/24, baseline 0.9. suspect dehydration vs toxic exposure vs rhabdo - Renal function improved with IV hydration - Nephrology on consult, appreciated recommendation - Strict intake and output - Daily weight - Avoid nephrotoxic medications; Renally dose medications - Monitor and replace electrolytes as needed - Trend BMP #Sepsis POA #Sinusitis #Bilateral Pneumonia #Lactic Acidosis - febrile, elevated lactic, source likely pulmonary - COVID PCR neg - UA is negative. Blood culture & Urine culture NGTD - 06/02 sputum culture + enterobacter - Continue IV Abx-Unasyn - Continue to F/U on B.cult - Daily CBC monitor - Consider ID consult if with persistent fever or/and if leukocytosis reoccur #Acute Right Upper Extremity DVT #C/f Possible Retained foreign object in right upper extremity - Noted on right upper extremity Doppler - C/f Possible Retained foreign object in right upper extremity - Vascular Surgery was consulted - Bedside ultrasound by Vascular revealed possible fibrin sheath - CT of Right upper extremity shows no retained object - On Heparin drip- switch to PO Eliquis - #GI/DVT Prophylaxis - Continue PPI- pepcid - Switched AC to Eliquis - SCDs to bilateral lower extremities while in bed The high probability of a clinically significant, sudden or life threatening deterioration of the [multiple] system(s) required my full and direct attention, intervention and personal management. The aggregate critical care time was [60] minutes. This time is in addition to time spent performing reported procedures but includes the following: [x] Data Review and interpretation [x] Patient assessment and monitoring of vital signs [x] Documentation [x] Medication orders and management Disposition Plan: ICU Total Time Spent with Patient (Minutes): 60 History Interval history: Patient seen and examined at the bedside. Remains on the vent. Back on sedation from overnight due to increase agitation, RASS 0 to -1 this am, following simple commands. Hospitalist Physical - Constitutional Vitals: Temp Pulse Resp BP Pulse Ox 99.3 F 68 23 98/53 98 06/07/21 08:00 06/07/21 10:00 06/07/21 10:00 06/07/21 10:00 06/07/21 10:00 General appearance: Present: no acute distress, obese, other (On the vent) - EENT Eyes: Present: PERRL - Neck Neck: Present: normal ROM - Respiratory Respiratory effort: normal Respiratory: bilateral: rhonchi - Cardiovascular Rhythm: regular Heart Sounds: Present: S1 & S2 - Extremities Extremities: no ischemia, pulses intact, pulses symmetrical Extremity abnormal: edema - Peripheral Assessment Generalized Edema Type: Non-pitting Edema Degree: 1+ Capillary Refill: < 3 seconds Skin Temperature: Warm Peripheral Pulses: within normal limits - Abdominal General gastrointestinal: soft, non-distended, normal bowel sounds - Integumentary Integumentary: Present: warm, dry - Psychiatric Psychiatric: appropriate mood/affect, cooperative, other (On sedation) - Neurologic Neurologic: moves all extremities - Allied Health Allied health notes reviewed: nursing HEART Score - HEART Score Troponin: Troponin T < 0.010 ng/mL (0.00-0.029) 05/23/21 09:38 Results - Labs CBC & Chem 7: 06/07/21 Unknown 06/07/21 Unknown Labs: Laboratory Last Values WBC 8.8 K/mm3 (4.5-11.0) 06/07/21 Unknown RBC 3.38 M/mm3 (3.65-5.03) L 06/07/21 Unknown Hgb 9.8 gm/dl (11.8-15.2) L 06/07/21 Unknown Hct 29.4 % (35.5-45.6) L 06/07/21 Unknown MCV 87 fl (84-94) 06/07/21 Unknown MCH 29 pg (28-32) 06/07/21 Unknown MCHC 33 % (32-34) 06/07/21 Unknown RDW 16.2 % (13.2-15.2) H 06/07/21 Unknown Plt Count 473 K/mm3 (140-440) H 06/07/21 Unknown Lymph % (Auto) 11.2 % (13.4-35.0) L 05/28/21 10:05 [place] % (Auto) 8.6 % (0.0-7.3) H 05/28/21 10:05 Eos % (Auto) 0.8 % (0.0-4.3) 05/28/21 10:05 Baso % (Auto) 0.5 % (0.0-1.8) 05/28/21 10:05 Lymph # (Auto) 1.3 K/mm3 (1.2-5.4) 05/28/21 10:05 [place] # (Auto) 1.0 K/mm3 (0.0-0.8) H 05/28/21 10:05 Eos # (Auto) 0.1 K/mm3 (0.0-0.4) 05/28/21 10:05 Baso # (Auto) 0.1 K/mm3 (0.0-0.1) 05/28/21 10:05 Add Manual Diff Complete 05/27/21 03:18 Total Counted 100 05/27/21 03:18 Seg Neutrophils % 78.9 % (40.0-70.0) H 05/28/21 10:05 Seg Neuts % (Manual) 92.0 % (40.0-70.0) H 05/27/21 03:18 Band Neutrophils % 0 % 05/27/21 03:18 Lymphocytes % (Manual) 5.0 % (13.4-35.0) L 05/27/21 03:18 Reactive Lymphs % (Man) 0 % 05/27/21 03:18 Monocytes % (Manual) 3.0 % (0.0-7.3) 05/27/21 03:18 Eosinophils % (Manual) 0 % (0.0-4.3) 05/27/21 03:18 Basophils % (Manual) 0 % (0.0-1.8) 05/27/21 03:18 Metamyelocytes % 0 % 05/27/21 03:18 Myelocytes % 0 % 05/27/21 03:18 Promyelocytes % 0 % 05/27/21 03:18 Blast Cells % 0 % 05/27/21 03:18 Nucleated RBC % Not Reportable 05/27/21 03:18 Seg Neutrophils # 9.0 K/mm3 (1.8-7.7) H 05/28/21 10:05 Seg Neutrophils # Man 19.8 K/mm3 (1.8-7.7) H 05/27/21 03:18 Band Neutrophils # 0.0 K/mm3 05/27/21 03:18 Lymphocytes # (Manual) 1.1 K/mm3 (1.2-5.4) L 05/27/21 03:18 Abs React Lymphs (Man) 0.0 K/mm3 05/27/21 03:18 Monocytes # (Manual) 0.6 K/mm3 (0.0-0.8) 05/27/21 03:18 Eosinophils # (Manual) 0.0 K/mm3 (0.0-0.4) 05/27/21 03:18 Basophils # (Manual) 0.0 K/mm3 (0.0-0.1) 05/27/21 03:18 Metamyelocytes # 0.0 K/mm3 05/27/21 03:18 Myelocytes # 0.0 K/mm3 05/27/21 03:18 Promyelocytes # 0.0 K/mm3 05/27/21 03:18 Blast Cells # 0.0 K/mm3 05/27/21 03:18 WBC Morphology Not Reportable 05/27/21 03:18 Hypersegmented Neuts Not Reportable 05/27/21 03:18 Hyposegmented Neuts Not Reportable 05/27/21 03:18 Hypogranular Neuts Not Reportable 05/27/21 03:18 Smudge Cells Not Reportable 05/27/21 03:18 Toxic Granulation Not Reportable 05/27/21 03:18 Toxic Vacuolation Not Reportable 05/27/21 03:18 Dohle Bodies Not Reportable 05/27/21 03:18 Pelger-Huet Anomaly Not Reportable 05/27/21 03:18 Glenn Rods Not Reportable 05/27/21 03:18 Platelet Estimate Consistent w auto 05/27/21 03:18 Clumped Platelets Not Reportable 05/27/21 03:18 Plt Clumps, EDTA Not Reportable 05/27/21 03:18 Large Platelets Not Reportable 05/27/21 03:18 Giant Platelets Not Reportable 05/27/21 03:18 Platelet Satelliting Not Reportable 05/27/21 03:18 Plt Morphology Comment Not Reportable 05/27/21 03:18 RBC Morphology Normal 05/27/21 03:18 Dimorphic RBCs Not Reportable 05/27/21 03:18 Polychromasia Not Reportable 05/27/21 03:18 Hypochromasia Not Reportable 05/27/21 03:18 Poikilocytosis Not Reportable 05/27/21 03:18 Anisocytosis Not Reportable 05/27/21 03:18 Microcytosis Not Reportable 05/27/21 03:18 Macrocytosis Not Reportable 05/27/21 03:18 Spherocytes Not Reportable 05/27/21 03:18 Pappenheimer Bodies Not Reportable 05/27/21 03:18 Sickle Cells Not Reportable 05/27/21 03:18 Target Cells Not Reportable 05/27/21 03:18 Tear Drop Cells Not Reportable 05/27/21 03:18 Ovalocytes Not Reportable 05/27/21 03:18 Helmet Cells Not Reportable 05/27/21 03:18 [place] Bodies Not Reportable 05/27/21 03:18 [place] Rings Not Reportable 05/27/21 03:18 [place] Cells Not Reportable 05/27/21 03:18 Bite Cells Not Reportable 05/27/21 03:18 Crenated Cell Not Reportable 05/27/21 03:18 Elliptocytes Not Reportable 05/27/21 03:18 Acanthocytes (Spur) Not Reportable 05/27/21 03:18 Rouleaux Not Reportable 05/27/21 03:18 Hemoglobin C Crystals Not Reportable 05/27/21 03:18 Schistocytes Not Reportable 05/27/21 03:18 Malaria parasites Not Reportable 05/27/21 03:18 Frandy Bodies Not Reportable 05/27/21 03:18 Hem Pathologist Commnt No 05/27/21 03:18 PT 15.8 Sec. (12.2-14.9) H 06/04/21 04:10 INR 1.14 (0.87-1.13) H 06/04/21 04:10 APTT 36.1 Sec. (24.2-36.6) 06/03/21 Unknown Heparin Anti-Xa Level 0.34 U.I./ml (0.3-0.7) 06/07/21 03:00 ABG pH 7.406 (7.320-7.450) 06/04/21 04:00 POC ABG pCO2 51.5 mmHg (32.0-48.0) H 06/04/21 04:00 ABG pCO2 54.4 mm Hg 06/02/21 05:42 POC ABG pO2 61.7 mmHg (83-108) L 06/04/21 04:00 ABG pO2 141.2 mm Hg (80.0-90.0) H 06/02/21 05:42 POC ABG HCO3 31.6 06/04/21 04:00 ABG HCO3 30.6 mmol/L (20.0-26.0) H 06/02/21 05:42 ABG O2 Saturation 92.7 (0-100) 06/04/21 04:00 ABG O2 Content 16.6 (0.0-44) 06/02/21 05:42 POC ABG Base Excess 5.7 06/04/21 04:00 ABG Base Excess 4.1 mmol/L (-2.0-3.0) H 06/02/21 05:42 ABG Hemoglobin 12.7 (12.0-17.5) 06/04/21 04:00 ABG Oxyhemoglobin 90.9 (94-98) L 06/04/21 04:00 ABG Carboxyhemoglobin 1.5 % (0.0-5.0) 06/02/21 05:42 ABG Methemoglobin 0.3 (0.0-1.5) 06/04/21 04:00 ABG Sodium 137.9 mmol/L (136.0-145.0) 05/24/21 03:44 ABG Potassium 5.6 mmol/L (3.40-4.50) H 05/24/21 03:44 ABG Chloride 105.0 mmol/L (98-107) 05/24/21 03:44 ABG Glucose 53 mg/dL (65-95) L 05/24/21 03:44 Oxyhemoglobin 96.7 % (95.0-99.0) 06/02/21 05:42 Carboxyhemoglobin 1.6 (0.5-1.5) H 06/04/21 04:00 FiO2 50 % 06/02/21 05:42 FiO2 % 35.0 06/04/21 04:00 Sodium 143 mmol/L (137-145) D 06/07/21 Unknown Potassium 3.6 mmol/L (3.6-5.0) 06/07/21 Unknown Chloride 107.4 mmol/L (98-107) H 06/07/21 Unknown Carbon Dioxide 28 mmol/L (22-30) 06/07/21 Unknown Anion Gap 11 mmol/L 06/07/21 Unknown BUN 8 mg/dL (9-20) L 06/07/21 Unknown Creatinine 0.6 mg/dL (0.8-1.3) L 06/07/21 Unknown Estimated GFR > 60 ml/min 06/07/21 Unknown BUN/Creatinine Ratio 13 % 06/07/21 Unknown Glucose 123 mg/dL (75-100) H 06/07/21 Unknown POC Glucose 111 mg/dL (70-105) H 06/07/21 05:27 Lactic Acid 2.10 mmol/L (0.7-2.0) H* 05/28/21 10:05 Calcium 8.4 mg/dL (8.4-10.2) 06/07/21 Unknown Phosphorus 2.30 mg/dL (2.5-4.5) L 06/07/21 Unknown Magnesium 1.70 mg/dL (1.7-2.3) 06/07/21 Unknown Total Bilirubin 2.90 mg/dL (0.1-1.2) H 06/02/21 20:00 Direct Bilirubin 2.4 mg/dL (0-0.2) H 06/02/21 07:41 Indirect Bilirubin 0.9 mg/dL 06/02/21 07:41 AST 53 units/L (5-40) H 06/02/21 20:00 ALT 30 units/L (7-56) 06/02/21 20:00 Alkaline Phosphatase 115 units/L (35-129) 06/02/21 20:00 Total Creatine Kinase 556 units/L (55-170) H 05/24/21 09:35 Troponin T < 0.010 ng/mL (0.00-0.029) 05/23/21 09:38 C-Reactive Protein 34.80 mg/dL (0.00-1.30) H 05/28/21 10:05 NT-Pro-B Natriuret Pep 6058 pg/mL (0-450) H 05/23/21 09:38 Total Protein 6.2 g/dL (6.3-8.2) L 06/02/21 20:00 Albumin 1.8 g/dL (3.9-5) L 06/02/21 20:00 Albumin/Globulin Ratio 0.4 % 06/02/21 20:00 Triglycerides 142 mg/dL (2-149) 06/07/21 Unknown Procalcitonin 12.51 ng/mL (<0.15) 05/28/21 10:05 Arterial Blood Glucose 53 mg/dL (65-95) L 05/24/21 03:44 Arterial Blood Ionized Calcium 4.6 mg/dL (4.6-5.3) 05/24/21 03:44 Urine Color Sherri (Yellow) 05/28/21 12:20 Urine Turbidity Clear (Clear) 05/28/21 12:20 Urine pH 6.0 (5.0-7.0) 05/28/21 12:20 Ur Specific Joaquin 1.017 (1.003-1.030) 05/28/21 12:20 Urine Protein 30 mg/dl mg/dL (Negative) 05/28/21 12:20 Urine Glucose (UA) Neg mg/dL (Negative) 05/28/21 12:20 Urine Ketones Neg mg/dL (Negative) 05/28/21 12:20 Urine Blood Mod (Negative) 05/28/21 12:20 Urine Nitrite Neg (Negative) 05/28/21 12:20 Urine Bilirubin Mod (Negative) 05/28/21 12:20 Urine Ictotest Positive (Negative) 05/28/21 12:20 Urine Urobilinogen 4.0 mg/dL (<2.0) 05/28/21 12:20 Ur Leukocyte Esterase Neg (Negative) 05/28/21 12:20 Urine WBC (Auto) 3.0 /HPF (0.0-6.0) 05/28/21 12:20 Urine RBC (Auto) 4.0 /HPF (0.0-6.0) 05/28/21 12:20 U Epithel Cells (Auto) < 1.0 /HPF (0-13.0) 05/28/21 12:20 Urine Bacteria (Auto) 1+ /HPF (Negative) 05/28/21 12:20 Urine Mucus Few /HPF 05/28/21 12:20 Urine Yeast (Budding) 1+ /HPF 05/24/21 Unknown Salicylates < 0.3 mg/dL (2.8-20.0) L 05/23/21 09:38 Urine Opiates Screen Negative 05/23/21 09:41 Urine Methadone Screen Negative 05/23/21 09:41 Acetaminophen 5.0 ug/mL (10.0-30.0) L 05/23/21 09:38 Ur Barbiturates Screen Negative 05/23/21 09:41 Ur Phencyclidine Scrn Negative 05/23/21 09:41 Ur Amphetamines Screen Positive 05/23/21 09:41 U Benzodiazepines Scrn Negative 05/23/21 09:41 Urine Cocaine Screen Negative 05/23/21 09:41 U Marijuana (THC) Screen Negative 05/23/21 09:41 Drugs of Abuse Note Disclamer 05/23/21 09:41 Coronavirus (PCR) Negative (Negative) 05/26/21 08:14 Hepatitis A IgM Ab Non-reactive (NonReactive) 05/27/21 16:00 Hep Bs Antigen Non-reactive (Negative) 05/27/21 16:00 Hep B Core IgM Ab Non-reactive (NonReactive) 05/27/21 16:00 Hepatitis C Antibody Non-reactive (NonReactive) 05/27/21 16:00 Fajardo/IV: Voiding Method Indwelling Catheter Active Medications - Current Medications Current Medications: Generic Name Dose Route Start Last Admin Trade Name Freq PRN Reason Stop Dose Admin Acetaminophen 650 mg 05/23/21 11:43 05/31/21 03:22 Acetaminophen 650 Mg Rect Supp IA 650 mg Q6H PRN Administration Pain MILD(1-3)/Fever >100.5/EPSTEIN Lipase/Protease/Amylase 1 each 05/29/21 08:45 Lipase 10,500/Protease 25,000/Amylase 43,750 (Units) Dr Cap FEEDTUBE PRN PRN For Clogged Feeding Tube Dextrose 0 ml 05/31/21 10:47 Dextrose 10% *Hypoglycemia IV PRN PRN Hypoglycemia Famotidine 40 mg 06/02/21 22:00 06/06/21 22:31 Famotidine 20 Mg Tab FEEDTUBE 40 mg QHS MARK Administration Fentanyl 50 mcg 06/01/21 12:29 Fentanyl 100 Mcg/2 Ml Inj IV Q10MIN PRN ANALGESIA Haloperidol Lactate 5 mg 05/30/21 12:18 06/01/21 09:27 Haloperidol Lactate 5 Mg/1 Ml Inj IV 5 mg Q6H PRN Administration Agitation Heparin Sodium (Porcine) 4,100 unit 06/03/21 15:02 Heparin 10,000 Units/10 Ml Vial 40 unit/kg (4100 unit) IV Q6H PRN Anti-Xa Assay < 0.1 units/ml Hydrophilic Ointment 1 applic 06/01/21 12:30 Lip Therapy Vaseline TP Q2HR PRN Dry Lips Dexmedetomidine HCl 400 mcg/ 104 mls @ 5.307 mls/hr 05/24/21 05:00 06/07/21 07:29 Sodium Chloride IV 1 mcg/kg/hr TITRATE MARK 26.535 mls/hr Administration Protocol 0.2 MCG/KG/HR Fentanyl Citrate 2,000 mcg in 100 mls @ 5.103 mls/hr 06/01/21 13:00 06/07/21 09:04 Fentanyl Drip Premix IV 1 mcg/kg/hr TITR MARK 5.103 mls/hr Titration Protocol 1 MCG/KG/HR Propofol 1,000 mg in 100 mls @ 3.062 mls/hr 06/01/21 12:10 06/07/21 10:06 Diprivan 10 Mg/Ml IV 0 mcg/kg/min TITR MARK 0 mls/hr Titration Protocol 5 MCG/KG/MIN Ampicillin Sodium/Sulbactam Sodium 3 gm in 100 mls @ 200 mls/hr 06/03/21 11:00 06/07/21 05:35 Unasyn/Ns 3 Gm/100 Ml IV 06/10/21 05:29 200 mls/hr Q6H MARK Administration Protocol Midazolam HCl 100 mg/ Sodium 100 mls @ 1 mls/hr 06/03/21 11:00 06/06/21 18:10 Chloride IV 0 mg/hr TITR MARK 0 mls/hr Titration Protocol 1 MG/HR Heparin Sodium/Sodium Chloride 25,000 unit in 500 mls @ 30 mls/hr 06/03/21 16:00 06/07/21 07:57 Heparin/ 0.45% Nacl-25,000 Unit/500 Ml IV 2,200 units/hr TITR MARK 44 mls/hr Administration Protocol 1,500 UNITS/HR Magnesium Sulfate 2 gm in 50 mls @ 25 mls/hr 06/07/21 09:00 06/07/21 08:59 Magnesium Sulfate 2gm/50ml IV 06/07/21 12:00 25 mls/hr ONCE@0900 MARK Administration Potassium Phosphate 15 mmol/ 255 mls @ 125 mls/hr 06/07/21 09:30 06/07/21 09:57 Sodium Chloride IV 06/07/21 12:30 125 mls/hr ONCE@0930 MARK Administration Lorazepam 2 mg 05/31/21 11:00 06/07/21 02:00 Lorazepam 2 Mg/Ml Vial IV 2 mg Q4H PRN Administration Agitation Midazolam HCl 2 mg 06/03/21 10:06 Midazolam 2 Mg/2 Ml Inj IV Q10MIN PRN Sedation Midodrine 5 mg 06/02/21 12:00 06/07/21 07:28 Midodrine 5 Mg Tab PO 5 mg TID@0800,1200,1600 MARK Administration Multi-Ingred Cream/Lotion/Oil/Oint 1 applic 06/01/21 12:30 Mineral Oil/Petrolatum, White Ophth Oint 3.5 Gm OU Q4HR PRN Dry Eye(s) Ondansetron HCl 4 mg 05/23/21 11:43 Ondansetron 4 Mg/2 Ml Inj IV Q8H PRN Nausea And Vomiting Quetiapine Fumarate 50 mg 06/06/21 13:00 06/07/21 09:19 Quetiapine 25 Mg Tab PO 50 mg BID MARK Administration Senna/Docusate Sodium 1 tab 06/01/21 22:00 06/07/21 10:00 Sennosides/Docusate Sodium 8.6/50 Mg Tab FEEDTUBE 1 tab BID MARK Administration Simple Syrup 15 ml 05/29/21 08:45 Simple Syrup 15 Ml FEEDTUBE PRN PRN Hypoglycemia Simple Syrup 30 ml 05/29/21 08:45 Simple Syrup 15 Ml FEEDTUBE PRN PRN Hypoglycemia Sodium Bicarbonate 325 mg 05/29/21 08:45 Sodium Bicarbonate 325 Mg Tab FEEDTUBE PRN PRN For Clogged Feeding Tube Sodium Chloride 10 ml 05/23/21 22:00 06/07/21 09:19 Sodium Chloride 0.9% 10 Ml Flush Syringe IV 10 ml BID MARK Administration Sodium Chloride 10 ml 05/23/21 11:43 Sodium Chloride 0.9% 10 Ml Flush Syringe IV PRN PRN LINE FLUSH Sodium Chloride 10 ml 05/31/21 09:50 06/01/21 12:32 Sodium Chloride 0.9% 50 Ml Ivpb IV 10 ml PRN PRN Administration FLUSH Vitamin B Complex/Folic Acid 1 each 05/30/21 10:00 06/07/21 09:19 Folbee Plus Cz (Folic Acid/Vit Bcomp&C/Cu/Znox) PO 1 each QDAY MARK Administration Nutrition/Malnutrition Assess - Dietary Evaluation Nutrition/Malnutrition Findings: Nutrition Notes Start: 05/28/21 12:16 Freq: Status: Active Protocol: Document 05/31/21 15:28 GREGG (Rec: 05/31/21 15:51 GREGG [id number]) Nutrition Notes Initial or Follow up Brief Note Current Diet TF-Vital HP @ 70 ml/hr (since D 05/31). Height 6 ft Weight 102.058 kg Trilla Body Weight (kg) 80.90 BMI 30.5 Weight change and time frame No body weight change in 2 days reported. Subjective/Other Information RD consult for routine F/u on TF tolerance. Pt extubated from mechanical ventilation, now on Bi-PaP+ tolerating well. TF continues as prescribed. Percent of energy/protein needs met: Prescribed Vital HP @ 70 ml/hr provides for energy/protein needs (1,655 Kcal/145 g) during LOS, 70% Kcal; 89% AA. #1 Nutrition Diagnosis Inadequate oral intake Diagnosis Progress(for reassessment Continues documentation) Is patient on ventilator? Yes Is Patient Ambulatory and/or Out of Bed No REE-([facility]-confined to bed) [phone] Calculation Used for Recommendations 65-70% energy needs Additional Notes Energy needs: 0950-6538 kcal/ day Pro needs 2g/kg IBW: 162g/day Fluid needs 1ml/kcal Nutrition Intervention Nutrition Support: Continue Vital HP @ 70 ml/hr. Flush: 170 ml water Q 4 hr, or as per MD. Kcal 1,655 Protein (gm) 145 Carbohydrates (gm) 185 Fat (gm) 38 Fluid (mL) 1,384 Fiber (gm) 0 % RDI: 70% Kcal; 89% AA. Goal #1 Provide at least 75% of energy /protein needs through Enteral Feeding during LOS. Goal #2 Maintain body weight within +/ -3% of admission body weight during LOS. Follow-Up By: 06/07/21 Additional Comments Continue monitoring TF tolerance and BM. <MAVIS CARVALHO - Last Filed: 06/08/21 10:18> Assessment and Plan Assessment and plan: I saw and evaluated the patient. Discussed with the nurse practitioner and agree with their findings and plan as documented in this note. Hospitalist Physical - Constitutional Vitals: Temp Pulse Resp BP Pulse Ox 98.8 F 100 H 19 123/92 100 06/08/21 08:00 06/08/21 09:02 06/08/21 08:30 06/08/21 09:02 06/08/21 08:37 HEART Score - HEART Score Troponin: Troponin T < 0.010 ng/mL (0.00-0.029) 05/23/21 09:38 Results - Labs CBC & Chem 7: 06/08/21 04:42 06/08/21 04:42 Labs: Laboratory Last Values WBC 8.7 K/mm3 (4.5-11.0) 06/08/21 04:42 RBC 3.62 M/mm3 (3.65-5.03) L 06/08/21 04:42 Hgb 10.2 gm/dl (11.8-15.2) L 06/08/21 04:42 Hct 31.9 % (35.5-45.6) L 06/08/21 04:42 MCV 88 fl (84-94) 06/08/21 04:42 MCH 28 pg (28-32) 06/08/21 04:42 MCHC 32 % (32-34) 06/08/21 04:42 RDW 16.5 % (13.2-15.2) H 06/08/21 04:42 Plt Count 502 K/mm3 (140-440) H 06/08/21 04:42 Lymph % (Auto) 11.2 % (13.4-35.0) L 05/28/21 10:05 [place] % (Auto) 8.6 % (0.0-7.3) H 05/28/21 10:05 Eos % (Auto) 0.8 % (0.0-4.3) 05/28/21 10:05 Baso % (Auto) 0.5 % (0.0-1.8) 05/28/21 10:05 Lymph # (Auto) 1.3 K/mm3 (1.2-5.4) 05/28/21 10:05 Estill # (Auto) 1.0 K/mm3 (0.0-0.8) H 05/28/21 10:05 Eos # (Auto) 0.1 K/mm3 (0.0-0.4) 05/28/21 10:05 Baso # (Auto) 0.1 K/mm3 (0.0-0.1) 05/28/21 10:05 Add Manual Diff Complete 05/27/21 03:18 Total Counted 100 05/27/21 03:18 Seg Neutrophils % 78.9 % (40.0-70.0) H 05/28/21 10:05 Seg Neuts % (Manual) 92.0 % (40.0-70.0) H 05/27/21 03:18 Band Neutrophils % 0 % 05/27/21 03:18 Lymphocytes % (Manual) 5.0 % (13.4-35.0) L 05/27/21 03:18 Reactive Lymphs % (Man) 0 % 05/27/21 03:18 Monocytes % (Manual) 3.0 % (0.0-7.3) 05/27/21 03:18 Eosinophils % (Manual) 0 % (0.0-4.3) 05/27/21 03:18 Basophils % (Manual) 0 % (0.0-1.8) 05/27/21 03:18 Metamyelocytes % 0 % 05/27/21 03:18 Myelocytes % 0 % 05/27/21 03:18 Promyelocytes % 0 % 05/27/21 03:18 Blast Cells % 0 % 05/27/21 03:18 Nucleated RBC % Not Reportable 05/27/21 03:18 Seg Neutrophils # 9.0 K/mm3 (1.8-7.7) H 05/28/21 10:05 Seg Neutrophils # Man 19.8 K/mm3 (1.8-7.7) H 05/27/21 03:18 Band Neutrophils # 0.0 K/mm3 05/27/21 03:18 Lymphocytes # (Manual) 1.1 K/mm3 (1.2-5.4) L 05/27/21 03:18 Abs React Lymphs (Man) 0.0 K/mm3 05/27/21 03:18 Monocytes # (Manual) 0.6 K/mm3 (0.0-0.8) 05/27/21 03:18 Eosinophils # (Manual) 0.0 K/mm3 (0.0-0.4) 05/27/21 03:18 Basophils # (Manual) 0.0 K/mm3 (0.0-0.1) 05/27/21 03:18 Metamyelocytes # 0.0 K/mm3 05/27/21 03:18 Myelocytes # 0.0 K/mm3 05/27/21 03:18 Promyelocytes # 0.0 K/mm3 05/27/21 03:18 Blast Cells # 0.0 K/mm3 05/27/21 03:18 WBC Morphology Not Reportable 05/27/21 03:18 Hypersegmented Neuts Not Reportable 05/27/21 03:18 Hyposegmented Neuts Not Reportable 05/27/21 03:18 Hypogranular Neuts Not Reportable 05/27/21 03:18 Smudge Cells Not Reportable 05/27/21 03:18 Toxic Granulation Not Reportable 05/27/21 03:18 Toxic Vacuolation Not Reportable 05/27/21 03:18 Dohle Bodies Not Reportable 05/27/21 03:18 Pelger-Huet Anomaly Not Reportable 05/27/21 03:18 Glenn Rods Not Reportable 05/27/21 03:18 Platelet Estimate Consistent w auto 05/27/21 03:18 Clumped Platelets Not Reportable 05/27/21 03:18 Plt Clumps, EDTA Not Reportable 05/27/21 03:18 Large Platelets Not Reportable 05/27/21 03:18 Giant Platelets Not Reportable 05/27/21 03:18 Platelet Satelliting Not Reportable 05/27/21 03:18 Plt Morphology Comment Not Reportable 05/27/21 03:18 RBC Morphology Normal 05/27/21 03:18 Dimorphic RBCs Not Reportable 05/27/21 03:18 Polychromasia Not Reportable 05/27/21 03:18 Hypochromasia Not Reportable 05/27/21 03:18 Poikilocytosis Not Reportable 05/27/21 03:18 Anisocytosis Not Reportable 05/27/21 03:18 Microcytosis Not Reportable 05/27/21 03:18 Macrocytosis Not Reportable 05/27/21 03:18 Spherocytes Not Reportable 05/27/21 03:18 Pappenheimer Bodies Not Reportable 05/27/21 03:18 Sickle Cells Not Reportable 05/27/21 03:18 Target Cells Not Reportable 05/27/21 03:18 Tear Drop Cells Not Reportable 05/27/21 03:18 Ovalocytes Not Reportable 05/27/21 03:18 Helmet Cells Not Reportable 05/27/21 03:18 [place] Bodies Not Reportable 05/27/21 03:18 [place] Rings Not Reportable 05/27/21 03:18 Giorgio Cells Not Reportable 05/27/21 03:18 Bite Cells Not Reportable 05/27/21 03:18 Crenated Cell Not Reportable 05/27/21 03:18 Elliptocytes Not Reportable 05/27/21 03:18 Acanthocytes (Spur) Not Reportable 05/27/21 03:18 Rouleaux Not Reportable 05/27/21 03:18 Hemoglobin C Crystals Not Reportable 05/27/21 03:18 Schistocytes Not Reportable 05/27/21 03:18 Malaria parasites Not Reportable 05/27/21 03:18 Frandy Bodies Not Reportable 05/27/21 03:18 Hem Pathologist Commnt No 05/27/21 03:18 PT 14.2 Sec. (12.2-14.9) 06/07/21 10:50 INR 0.99 (0.87-1.13) 06/07/21 10:50 APTT 36.1 Sec. (24.2-36.6) 06/03/21 Unknown Heparin Anti-Xa Level 0.34 U.I./ml (0.3-0.7) 06/07/21 10:50 ABG pH 7.406 (7.320-7.450) 06/04/21 04:00 POC ABG pCO2 51.5 mmHg (32.0-48.0) H 06/04/21 04:00 ABG pCO2 54.4 mm Hg 06/02/21 05:42 POC ABG pO2 61.7 mmHg (83-108) L 06/04/21 04:00 ABG pO2 141.2 mm Hg (80.0-90.0) H 06/02/21 05:42 POC ABG HCO3 31.6 06/04/21 04:00 ABG HCO3 30.6 mmol/L (20.0-26.0) H 06/02/21 05:42 ABG O2 Saturation 92.7 (0-100) 06/04/21 04:00 ABG O2 Content 16.6 (0.0-44) 06/02/21 05:42 POC ABG Base Excess 5.7 06/04/21 04:00 ABG Base Excess 4.1 mmol/L (-2.0-3.0) H 06/02/21 05:42 ABG Hemoglobin 12.7 (12.0-17.5) 06/04/21 04:00 ABG Oxyhemoglobin 90.9 (94-98) L 06/04/21 04:00 ABG Carboxyhemoglobin 1.5 % (0.0-5.0) 06/02/21 05:42 ABG Methemoglobin 0.3 (0.0-1.5) 06/04/21 04:00 ABG Sodium 137.9 mmol/L (136.0-145.0) 05/24/21 03:44 ABG Potassium 5.6 mmol/L (3.40-4.50) H 05/24/21 03:44 ABG Chloride 105.0 mmol/L (98-107) 05/24/21 03:44 ABG Glucose 53 mg/dL (65-95) L 05/24/21 03:44 Oxyhemoglobin 96.7 % (95.0-99.0) 06/02/21 05:42 Carboxyhemoglobin 1.6 (0.5-1.5) H 06/04/21 04:00 FiO2 50 % 06/02/21 05:42 FiO2 % 35.0 06/04/21 04:00 Sodium 143 mmol/L (137-145) 06/08/21 04:42 Potassium 3.7 mmol/L (3.6-5.0) 06/08/21 04:42 Chloride 109.9 mmol/L (98-107) H 06/08/21 04:42 Carbon Dioxide 26 mmol/L (22-30) 06/08/21 04:42 Anion Gap 11 mmol/L 06/08/21 04:42 BUN 11 mg/dL (9-20) 06/08/21 04:42 Creatinine 0.5 mg/dL (0.8-1.3) L 06/08/21 04:42 Estimated GFR > 60 ml/min 06/08/21 04:42 BUN/Creatinine Ratio 22 % 06/08/21 04:42 Glucose 108 mg/dL (75-100) H 06/08/21 04:42 POC Glucose 113 mg/dL (70-105) H 06/08/21 05:15 Lactic Acid 2.10 mmol/L (0.7-2.0) H* 05/28/21 10:05 Calcium 8.2 mg/dL (8.4-10.2) L 06/08/21 04:42 Phosphorus 2.50 mg/dL (2.5-4.5) 06/08/21 04:42 Magnesium 1.60 mg/dL (1.7-2.3) L 06/08/21 04:42 Total Bilirubin 2.90 mg/dL (0.1-1.2) H 06/02/21 20:00 Direct Bilirubin 2.4 mg/dL (0-0.2) H 06/02/21 07:41 Indirect Bilirubin 0.9 mg/dL 06/02/21 07:41 AST 53 units/L (5-40) H 06/02/21 20:00 ALT 30 units/L (7-56) 06/02/21 20:00 Alkaline Phosphatase 115 units/L (35-129) 06/02/21 20:00 Total Creatine Kinase 556 units/L (55-170) H 05/24/21 09:35 Troponin T < 0.010 ng/mL (0.00-0.029) 05/23/21 09:38 C-Reactive Protein 34.80 mg/dL (0.00-1.30) H 05/28/21 10:05 NT-Pro-B Natriuret Pep 6058 pg/mL (0-450) H 05/23/21 09:38 Total Protein 6.2 g/dL (6.3-8.2) L 06/02/21 20:00 Albumin 1.8 g/dL (3.9-5) L 06/02/21 20:00 Albumin/Globulin Ratio 0.4 % 06/02/21 20:00 Triglycerides 142 mg/dL (2-149) 06/07/21 Unknown Procalcitonin 12.51 ng/mL (<0.15) 05/28/21 10:05 Arterial Blood Glucose 53 mg/dL (65-95) L 05/24/21 03:44 Arterial Blood Ionized Calcium 4.6 mg/dL (4.6-5.3) 05/24/21 03:44 Urine Color Sherri (Yellow) 05/28/21 12:20 Urine Turbidity Clear (Clear) 05/28/21 12:20 Urine pH 6.0 (5.0-7.0) 05/28/21 12:20 Ur Specific Joaquin 1.017 (1.003-1.030) 05/28/21 12:20 Urine Protein 30 mg/dl mg/dL (Negative) 05/28/21 12:20 Urine Glucose (UA) Neg mg/dL (Negative) 05/28/21 12:20 Urine Ketones Neg mg/dL (Negative) 05/28/21 12:20 Urine Blood Mod (Negative) 05/28/21 12:20 Urine Nitrite Neg (Negative) 05/28/21 12:20 Urine Bilirubin Mod (Negative) 05/28/21 12:20 Urine Ictotest Positive (Negative) 05/28/21 12:20 Urine Urobilinogen 4.0 mg/dL (<2.0) 05/28/21 12:20 Ur Leukocyte Esterase Neg (Negative) 05/28/21 12:20 Urine WBC (Auto) 3.0 /HPF (0.0-6.0) 05/28/21 12:20 Urine RBC (Auto) 4.0 /HPF (0.0-6.0) 05/28/21 12:20 U Epithel Cells (Auto) < 1.0 /HPF (0-13.0) 05/28/21 12:20 Urine Bacteria (Auto) 1+ /HPF (Negative) 05/28/21 12:20 Urine Mucus Few /HPF 05/28/21 12:20 Urine Yeast (Budding) 1+ /HPF 05/24/21 Unknown Salicylates < 0.3 mg/dL (2.8-20.0) L 05/23/21 09:38 Urine Opiates Screen Negative 05/23/21 09:41 Urine Methadone Screen Negative 05/23/21 09:41 Acetaminophen 5.0 ug/mL (10.0-30.0) L 05/23/21 09:38 Ur Barbiturates Screen Negative 05/23/21 09:41 Ur Phencyclidine Scrn Negative 05/23/21 09:41 Ur Amphetamines Screen Positive 05/23/21 09:41 U Benzodiazepines Scrn Negative 05/23/21 09:41 Urine Cocaine Screen Negative 05/23/21 09:41 U Marijuana (THC) Screen Negative 05/23/21 09:41 Drugs of Abuse Note Disclamer 05/23/21 09:41 Coronavirus (PCR) Negative (Negative) 05/26/21 08:14 Hepatitis A IgM Ab Non-reactive (NonReactive) 05/27/21 16:00 Hep Bs Antigen Non-reactive (Negative) 05/27/21 16:00 Hep B Core IgM Ab Non-reactive (NonReactive) 05/27/21 16:00 Hepatitis C Antibody Non-reactive (NonReactive) 05/27/21 16:00 Fajardo/IV: Voiding Method Indwelling Catheter Active Medications - Current Medications Current Medications: Generic Name Dose Route Start Last Admin Trade Name Freq PRN Reason Stop Dose Admin Acetaminophen 650 mg 05/23/21 11:43 05/31/21 03:22 Acetaminophen 650 Mg Rect Supp IA 650 mg Q6H PRN Administration Pain MILD(1-3)/Fever >100.5/EPSTEIN Lipase/Protease/Amylase 1 each 05/29/21 08:45 Lipase 10,500/Protease 25,000/Amylase 43,750 (Units) Dr Mitchell FEEDTUBE PRN PRN For Clogged Feeding Tube Apixaban 10 mg 06/07/21 15:00 06/08/21 09:03 Apixaban 5 Mg Tab PO 06/13/21 22:01 10 mg Q12HR MARK Administration Protocol Apixaban 5 mg 06/14/21 10:00 Apixaban 5 Mg Tab PO Q12HR MARK Protocol Carvedilol 6.25 mg 06/07/21 12:00 06/08/21 09:02 Carvedilol 6.25 Mg Tab FEEDTUBE 6.25 mg BID MARK Administration Dextrose 0 ml 05/31/21 10:47 Dextrose 10% *Hypoglycemia IV PRN PRN Hypoglycemia Famotidine 40 mg 06/02/21 22:00 06/07/21 22:30 Famotidine 20 Mg Tab FEEDTUBE 40 mg QHS MARK Administration Fentanyl 50 mcg 06/01/21 12:29 Fentanyl 100 Mcg/2 Ml Inj IV Q10MIN PRN ANALGESIA Furosemide 20 mg 06/07/21 12:00 06/08/21 09:03 Furosemide 20 Mg Tab FEEDTUBE 20 mg BID MARK Administration Haloperidol Lactate 5 mg 05/30/21 12:18 06/01/21 09:27 Haloperidol Lactate 5 Mg/1 Ml Inj IV 5 mg Q6H PRN Administration Agitation Hydrophilic Ointment 1 applic 06/01/21 12:30 Lip Therapy Vaseline TP Q2HR PRN Dry Lips Dexmedetomidine HCl 400 mcg/ 104 mls @ 5.307 mls/hr 05/24/21 05:00 06/08/21 06:15 Sodium Chloride IV 1.2 mcg/kg/hr TITRATE MARK 31.842 mls/hr Administration Protocol 0.2 MCG/KG/HR Fentanyl Citrate 2,000 mcg in 100 mls @ 5.103 mls/hr 06/01/21 13:00 06/08/21 04:38 Fentanyl Drip Premix IV 1 mcg/kg/hr TITR MARK 5.103 mls/hr Administration Protocol 1 MCG/KG/HR Ampicillin Sodium/Sulbactam Sodium 3 gm in 100 mls @ 200 mls/hr 06/03/21 11:00 06/08/21 04:37 Unasyn/Ns 3 Gm/100 Ml IV 06/10/21 05:29 200 mls/hr Q6H MARK Administration Protocol Magnesium Sulfate 4 gm in 100 mls @ 25 mls/hr 06/08/21 10:00 06/08/21 09:09 Magnesium Sulfate 4gm/100ml IV 06/08/21 13:59 25 mls/hr ONCE ONE Administration Lorazepam 2 mg 05/31/21 11:00 06/08/21 09:02 Lorazepam 2 Mg/Ml Vial IV 2 mg Q4H PRN Administration Agitation Midodrine 5 mg 06/02/21 12:00 06/08/21 09:01 Midodrine 5 Mg Tab PO 5 mg TID@0800,1200,1600 MARK Administration Multi-Ingred Cream/Lotion/Oil/Oint 1 applic 06/01/21 12:30 Mineral Oil/Petrolatum, White Ophth Oint 3.5 Gm OU Q4HR PRN Dry Eye(s) Ondansetron HCl 4 mg 05/23/21 11:43 Ondansetron 4 Mg/2 Ml Inj IV Q8H PRN Nausea And Vomiting Quetiapine Fumarate 75 mg 06/07/21 22:00 06/08/21 09:03 Quetiapine 25 Mg Tab PO 75 mg BID MARK Administration Senna/Docusate Sodium 1 tab 06/01/21 22:00 06/08/21 09:04 Sennosides/Docusate Sodium 8.6/50 Mg Tab FEEDTUBE 1 tab BID MARK Administration Simple Syrup 15 ml 05/29/21 08:45 Simple Syrup 15 Ml FEEDTUBE PRN PRN Hypoglycemia Simple Syrup 30 ml 05/29/21 08:45 Simple Syrup 15 Ml FEEDTUBE PRN PRN Hypoglycemia Sodium Bicarbonate 325 mg 05/29/21 08:45 Sodium Bicarbonate 325 Mg Tab FEEDTUBE PRN PRN For Clogged Feeding Tube Sodium Chloride 10 ml 05/23/21 22:00 06/08/21 09:04 Sodium Chloride 0.9% 10 Ml Flush Syringe IV 10 ml BID MARK Administration Sodium Chloride 10 ml 05/23/21 11:43 Sodium Chloride 0.9% 10 Ml Flush Syringe IV PRN PRN LINE FLUSH Sodium Chloride 10 ml 05/31/21 09:50 06/01/21 12:32 Sodium Chloride 0.9% 50 Ml Ivpb IV 10 ml PRN PRN Administration FLUSH Vitamin B Complex/Folic Acid 1 each 05/30/21 10:00 06/08/21 09:03 Folbee Plus Cz (Folic Acid/Vit Bcomp&C/Cu/Znox) PO 1 each QDAY MARK Administration Nutrition/Malnutrition Assess - Dietary Evaluation Nutrition/Malnutrition Findings: Nutrition Notes Start: 05/28/21 12:16 Freq: Status: Active Protocol: Document 06/07/21 15:07 YURI (Rec: 06/07/21 15:17 [facility] [id number]) Nutrition Notes Initial or Follow up Reassessment Current Diagnosis Heart Failure,Respiratory Failure Other Pertinent Diagnosis Acute encephalopathy, Overdose , Methamphetamine dependence Current Diet TF - Vital HP at 70ml/hr Labs/Tests Phos 2.3 Pertinent Medications Lasix, 15mmol KPhos x 1 dose, Vit B complex/Folic acid Height 6 ft Weight 102.058 kg Trilla Body Weight (kg) 80.90 BMI 30.5 Weight Status Obese Subjective/Other Information Pt remains on vent support. Per RN, pt tolerating TF at goal rate and currently receiving 200ml water flush q4h. PEG and trach placed on 06/04. Percent of energy/protein needs met: 71% energy 91% pro Burn Absent Trauma Absent #1 Nutrition Diagnosis Inadequate oral intake Diagnosis Progress(for reassessment Continues documentation) Is patient on ventilator? Yes Is Patient Ambulatory and/or Out of Bed No REE-(Gunter-St. Jeor-confined to bed) 0024.912 Calculation Used for Recommendations 65-70% energy needs Additional Notes Energy needs: 0797-9047 kcal/ day Pro needs 2g/kg IBW: 162g/day Fluid needs 1ml/kcal Nutrition Intervention Nutrition Support: Continue Vital HP at 70 ml/hr. Continue 200ml water flush q4h until hypernatremia resolves; then provide 50ml water flush q4h. Kcal 1,680 Protein (gm) 147 Carbohydrates (gm) 188 Fat (gm) 39 Fluid (mL) 1,404 Fiber (gm) 0 Goal #1 TF tolerance Goal #2 TF to meet 65-70% energy and at least 75% pro needs Follow-Up By: 06/11/21 Additional Comments F/U: Vent status, Na lab/water flush
[2021-06-07] MEDS ORDERED: MAGNESIUM CITRATE 300 ML ORAL LIQD PO ONE ×2 (12:00→17:00)
--- NOTE | 2021-06-07 12:25 | Progress Note ---
Assessment and Plan Patient is a 40-year-old male with a past medical history of HFrEF (EF 15%) and methamphetamine dependence who was brought to the ED after being found unresponsive on 05/13/2021. Acute hypoxic respiratory failure-pulmonology following Drug overdose Acute on chronic HFrEF Sepsis Bilateral pneumonia DVT BRYNN-Nephrology following Rhabdomyolysis Hypernatremia Echo 05/25/2021-EF 20 to 25%. Severe global hypokinesis of left ventricle. Left ventricle is moderately dilated. Doppler flow suggests impaired LV relaxation. Moderate mitral regurgitation. No pericardial effusion Cardiac cath 08/04/2020-Angiographically normal coronary arteries. This is indicative of a nonischemic cardiomyopathy. Mildly elevated biventricular filling pressures with normal cardiac index TTE, complete 08/02/20:LVEF is 18%,Severe global LV hypokinesis. Normal LV diastolic function. LA mildly dilated. Moderate mitral regurgitation with an eccentric MR jet(s),No previous echocardiogram for comparison. Outpatient medications: Coreg 6.25 mg p.o. twice daily, Lasix 40 mg p.o. daily, lisinopril 5 mg p.o. daily Plan: Continue to hold RAMYA and ARB due low BP Recommend holding beta-woo due to patient soft BP Continue midodrine 5 mg p.o. 3 times daily due to low BPs Patient seen in conjunction with Dr. Meyers who agrees with this plan of care - Patient Problems (1) Acute on chronic HFrEF (heart failure with reduced ejection fraction) Current Visit: Yes Status: Acute (2) PNA (pneumonia) Current Visit: Yes Status: Acute (3) Acute encephalopathy Current Visit: Yes Status: Acute (4) Acute respiratory failure Current Visit: Yes Status: Acute Qualifiers: Respiratory failure complication: hypoxia Qualified Code(s): J96.01 - Acute respiratory failure with hypoxia (5) Overdose by ingestion Current Visit: Yes Status: Acute Subjective Date of service: 06/07/21 Principal diagnosis: Overdose Interval history: Patient s/p trach and PEG. Awake and off sedation Sinus 70s on monitor Objective Vital Signs Temp Pulse Pulse Resp BP Pulse Ox Pulse Ox 06/07/21 12:21 100 06/07/21 11:00 129 H 16 117/78 100 06/07/21 10:31 118 H 27 H 106/77 100 06/07/21 10:00 68 23 98/53 98 06/07/21 09:30 68 21 99/58 99 06/07/21 09:22 67 100/58 99 06/07/21 09:00 67 20 100/58 99 06/07/21 08:30 68 24 97/57 99 06/07/21 08:00 99.3 F 69 69 25 H 94/55 99 06/07/21 07:30 75 20 96/55 99 06/07/21 07:00 69 26 H 91/52 98 06/07/21 06:30 70 27 H 92/53 98 06/07/21 06:00 74 24 93/55 98 06/07/21 05:30 75 26 H 97/55 99 06/07/21 05:00 75 28 H 98/56 99 06/07/21 04:30 72 29 H 94/55 98 06/07/21 04:00 99.5 F 74 79 17 94/55 98 06/07/21 03:30 76 29 H 95/56 99 06/07/21 03:00 86 30 H 107/58 98 06/07/21 02:30 88 31 H 144/75 97 06/07/21 02:00 134 H 23 114/67 100 06/07/21 01:30 106 H 22 114/67 100 06/07/21 01:00 92 H 30 H 102/60 99 06/07/21 00:30 99 H 21 91/61 100 06/07/21 00:00 81 79 17 98/57 98 06/06/21 23:40 99.6 F 06/06/21 23:30 80 19 100/54 99 06/06/21 23:06 77 24 98/54 98 06/06/21 23:00 78 24 98/54 96 06/06/21 22:30 86 22 115/44 97 06/06/21 22:00 116 H 20 167/67 99 06/06/21 21:30 115 H 25 H 167/67 98 06/06/21 21:00 134 H 36 H 117/65 100 06/06/21 20:30 110 H 18 92/50 99 06/06/21 20:00 75 79 17 92/50 98 06/06/21 19:30 100 F H 77 25 H 94/52 99 06/06/21 19:00 73 26 H 96/51 98 06/06/21 18:30 78 22 102/49 98 06/06/21 18:00 68 24 83/50 97 06/06/21 17:30 70 19 84/48 97 06/06/21 17:00 76 25 H 93/46 94 06/06/21 16:30 85 24 98/51 96 06/06/21 16:00 128 H 90 18 139/68 100 06/06/21 15:30 119 H 25 H 141/100 98 06/06/21 15:00 125 H 14 138/75 100 06/06/21 14:30 122 H 38 H 148/80 100 06/06/21 14:00 126 H 19 146/92 100 06/06/21 13:30 121 H 26 H 134/75 100 06/06/21 13:00 116 H 27 H 131/64 100 06/06/21 12:30 112 H 19 104/50 100 - Physical Examination General: No Apparent Distress HEENT: Positive: Normocephaly Neck: Positive: neck supple, trachea midline. Negative: JVD/HJR Cardiac: Positive: Reg Rate and Rhythm Lungs: Positive: Ventilated Respirations Neuro: Positive: Grossly Intact Abdomen: Positive: Soft Skin: Negative: Rash Extremities: Present: warm. Absent: edema - Labs and Meds Lipids 06/07/21 Range/Units Unknown Triglycerides 142 (2-149) mg/dL CBC 06/07/21 Range/Units Unknown WBC 8.8 (4.5-11.0) K/mm3 RBC 3.38 L (3.65-5.03) M/mm3 Hgb 9.8 L (11.8-15.2) gm/dl Hct 29.4 L (35.5-45.6) % Plt Count 473 H (140-440) K/mm3 Comprehensive Metabolic Panel 06/07/21 Range/Units Unknown Sodium 143 D (137-145) mmol/L Potassium 3.6 (3.6-5.0) mmol/L Chloride 107.4 H (98-107) mmol/L Carbon Dioxide 28 (22-30) mmol/L BUN 8 L (9-20) mg/dL Creatinine 0.6 L (0.8-1.3) mg/dL Glucose 123 H (75-100) mg/dL Calcium 8.4 (8.4-10.2) mg/dL - Imaging and Cardiology EKG: report reviewed, image reviewed Echo: report reviewed Cardiac cath: report reviewed - Telemetry EKG Rhythm: Sinus Rhythm - EKG Sinus rhythms and dysrhythmias: sinus rhythm, sinus tachycardia Ventricular dysrhythmias: ventricular premature com Repolarization changes or abnormalities: nonspecific abnormality, ST segment, and/or T wave - Allied health notes Allied health notes reviewed: nursing
[2021-06-07 12:57] LABS: INR 0.99 (0.87-1.13)
[2021-06-07] MEDS: carvediloL 6.25 MG TAB FEEDTUBE SCH ×2 (13:12→21:06)
[2021-06-07] MEDS: FUROSEMIDE 20 MG TAB FEEDTUBE SCH ×2 (13:12→21:06)
[2021-06-07] MEDS: APIXABAN 5 MG TAB PO SCH ×2 (15:02→21:09)
[2021-06-07] MEDS: FAMOTIDINE 20 MG TAB FEEDTUBE SCH (22:30)
[2021-06-08] MEDS: FREE WATER PO SCH ×6 (02:10→21:07)
[2021-06-08] MEDS: AMPICILLIN/SULBACTA 3GM/100ML 3 GM/100 ML BAG IV SCH ×4 (04:37→23:24)
[2021-06-08] MEDS: fentaNYL DRIP Premix 2,000 MCG/100 ML BAG IV SCH (04:38)
[2021-06-08 05:59] LABS: Hematocrit 31.9 % (35.5-45.6); Hemoglobin 10.2 gm/dl (11.8-15.2); Mean Corpuscular HGB Conc 32 % (32-34); Mean Corpuscular Volume 88 fl (84-94); Platelet Count 502 K/mm3 (140-440); Red Blood Count 3.62 M/mm3 (3.65-5.03); Red Cell Distribution Width 16.5 % (13.2-15.2)
[2021-06-08 06:13] LABS: Blood Urea Nitrogen 11 mg/dL (9-20); Calcium 8.2 mg/dL (8.4-10.2); Hemolysis Index 6
[2021-06-08 06:14] LABS: BUN/Creatinine Ratio 22
--- NOTE | 2021-06-08 06:32 | XRay Report ---
CHEST 1 VIEW INDICATION / CLINICAL INFORMATION: follow up respiratory failure. COMPARISON: 06/07/2021 FINDINGS: SUPPORT DEVICES: Stable, satisfactory device positioning. HEART / MEDIASTINUM: Stable cardiomegaly. LUNGS / PLEURA: Bibasilar pulmonary opacities appear slightly less prominent. Upper lung bryant remai n clear. No pneumothorax. ADDITIONAL FINDINGS: No significant additional findings. IMPRESSION: 1. Slight improvement in appearance of chest radiograph. Signer Name: Fara Pemberton MD Signed: 06/08/2021 6:28 AM Workstation Name: [id number]
[2021-06-08] MEDS: MIDODRINE 5 MG TAB PO SCH (09:01)
[2021-06-08] MEDS: LORazepam 2 MG/ML VIAL IV PRN ×2 (09:02→13:42)
[2021-06-08] MEDS: carvediloL 6.25 MG TAB FEEDTUBE SCH ×2 (09:02→21:06)
[2021-06-08] MEDS: QUEtiapine 25 MG TAB PO SCH ×2 (09:03→21:07)
[2021-06-08] MEDS: FOLBEE PLUS CZ (FOLIC ACID/VIT BCOMP&C/CU/ZNOX) PO SCH (09:03)
[2021-06-08] MEDS: APIXABAN 5 MG TAB PO SCH ×2 (09:03→21:07)
[2021-06-08] MEDS: FUROSEMIDE 20 MG TAB FEEDTUBE SCH ×2 (09:03→21:07)
[2021-06-08] MEDS: SENNOSIDES/DOCUSATE SODIUM 8.6/50 MG TAB FEEDTUBE SCH ×2 (09:04→21:07)
[2021-06-08] MEDS ORDERED: MAGNESIUM SULFATE 4 GM/100 ML BAG IV ONE (10:00)
--- NOTE | 2021-06-08 11:10 | Progress Note ---
Assessment and Plan 40 y/o male with suspected overdose and metabolic acidosis 06/08/21: Today will turn off fent and see if patient can maintain off this. If so, RT will start PSV trials while on precedex. CM still working on placement. Tolerated low dose BB and lasix therapy. Stopping midodrine today and will reassess blood pressure tomorrow. If stable off midodrine, will consider increasing lasix to 40 BID. Continue ICU care. 06/07/21: Continue BID seroquel. Reviewed I/O. Positive daily for several days. No issues with hypoxemia but as we wean vent settings and remove afterload reducers, worried about worsening pullm status. Will ask cards about scheduled diuretic therapy. Continue to wean as tolerated. Placement. 06/06/21: Will start BID Seroquel today. Wean Diprovan off. Once off all sedation, will attempt PSV trials. Placement. 06/05/21: Gain control of sedation and mental state. Feed per peg tube. Anticoagulation for DVT. Abx. Placement. 06/04/21: Trach and peg today. Wean sedation as tolerated once trached. once off all sedation can try PSV trials if patient will remain calm enough. Anticoagulation for DVT. MRI and head CT were negative. COntinue abx therapy. Guarded prognosis. 06/03/21: Surgery has seen and will schedule for trach and peg soon. IR consulted given acute DVT in upper ext and possible retained products. Will obtain CT of chest. Given mental status and no real answer with negative head CT, will obtain MRI. Will start empiric unasyn given secretions, odor and white count. Only on minimal vent settings. Await sputum culture. LFT's better. WIll place central line in groin. GUarded prognosis. 06/02/21: recheck LFT's. Consult surgery for trach and peg. Feed patient. Reviewed abdominal US from 05/27, unremarkable but if LFT's worse, may need to repeat or even consider CT of abdomen pelvis. 06/01/21: Reintubated today. Sedated. Spoke with mother over the phone. Given this is the third intubation in less than 10 days, will consult surgery for trach and peg. 05/31/21: Extubated and had some upper airway noise. RT gave racemic epi. Increased work of breathing but no desats so will try bipap therapy. If fails will be reintubated and trached. Keep NPO for now. Will need to change BB to IV while on bipap therapy. 05/28/21: Extubate again today once patient is more awake. Continue precedex to help with agitation. Will need swallow eval once extubated. Cards is seeing, await any new recs. spoke with them this morning and his cardiomyopathy and systolic heart failure are chronic with normal coronaries on a cath last year sometime in the [place] [facility]. 05/27/21: Get patient to ICU as soon as possible to achieve adequate sedation and mental state control to insure successful extubation. AGree with Precedex 05/26/21: Attempt extubation today once all sedation is off. 05/25/21: follow up echo. Spoke with RT about ABG. States will be in system within the hour. Still pressors but on Precedex, Versed and Fent. needs to be COVID tested. BNP was >6k. Unable to diurese right now given pressor requirements but need to follow up echo. need to get patient upstairs as soon as possible. Spoke with charge nurse and they are working on this. 1. CXR shows cardiomegaly with some bibasilar changes. Could be fluid. Suggest swabbing for COVID. Check BNP and obtain 2D echo given heart size. 2. Minimal sedation to assess mental status 3. Wean pressors for MAPS >60 4. Follow up renal recs 5. No ABG prior to intubation. Echo should be a bubble study given degree of hypoxemia seen on ABG CCT 31 minutes. Subjective Date of service: 06/08/21 Principal diagnosis: Overdose Interval history: No acute events. Only got one dose of PRN meds overnight. Seroquel was increased to 75 BID yesterday. Objective Vital Signs - 12hr 06/07/21 06/08/21 06/08/21 23:30 00:00 00:30 Temperature Pulse Rate 69 71 101 H Pulse Rate [ 65 From Monitor] Respiratory 19 18 17 Rate Blood Pressure 101/60 104/64 104/64 O2 Sat by Pulse 100 100 100 Oximetry O2 Sat by Pulse Oximetry [ Assessment] 06/08/21 06/08/21 06/08/21 00:51 01:00 01:30 Temperature Pulse Rate 99 H 117 H 110 H Pulse Rate [ From Monitor] Respiratory 22 18 Rate Blood Pressure 112/42 134/81 120/78 O2 Sat by Pulse 100 100 100 Oximetry O2 Sat by Pulse Oximetry [ Assessment] 06/08/21 06/08/21 06/08/21 02:00 02:30 03:00 Temperature Pulse Rate 88 85 92 H Pulse Rate [ From Monitor] Respiratory 11 L 10 L 9 L Rate Blood Pressure 112/64 103/56 103/56 O2 Sat by Pulse 100 100 100 Oximetry O2 Sat by Pulse Oximetry [ Assessment] 06/08/21 06/08/21 06/08/21 03:30 04:00 04:17 Temperature 98.2 F Pulse Rate 79 72 75 Pulse Rate [ 73 From Monitor] Respiratory 16 14 Rate Blood Pressure 102/58 106/64 106/64 O2 Sat by Pulse 100 100 100 Oximetry O2 Sat by Pulse Oximetry [ Assessment] 06/08/21 06/08/21 06/08/21 04:30 04:38 05:00 Temperature Pulse Rate 72 69 Pulse Rate [ From Monitor] Respiratory 13 18 Rate Blood Pressure 100/61 100/56 O2 Sat by Pulse 100 99 Oximetry O2 Sat by Pulse 100 Oximetry [ Assessment] 06/08/21 06/08/21 06/08/21 05:30 06:00 06:30 Temperature Pulse Rate 78 73 72 Pulse Rate [ From Monitor] Respiratory 13 15 16 Rate Blood Pressure 95/59 99/56 98/55 O2 Sat by Pulse 99 98 98 Oximetry O2 Sat by Pulse Oximetry [ Assessment] 06/08/21 06/08/21 06/08/21 07:00 07:30 08:00 Temperature 98.8 F Pulse Rate 110 H 70 98 H Pulse Rate [ From Monitor] Respiratory 20 16 9 L Rate Blood Pressure 98/55 108/64 102/72 O2 Sat by Pulse 100 98 100 Oximetry O2 Sat by Pulse Oximetry [ Assessment] 06/08/21 06/08/21 06/08/21 08:30 08:35 08:37 Temperature Pulse Rate 112 H 61 Pulse Rate [ From Monitor] Respiratory 19 Rate Blood Pressure 111/48 111/48 O2 Sat by Pulse 100 100 Oximetry O2 Sat by Pulse 100 Oximetry [ Assessment] 06/08/21 09:02 Temperature Pulse Rate 100 H Pulse Rate [ From Monitor] Respiratory Rate Blood Pressure 123/92 O2 Sat by Pulse Oximetry O2 Sat by Pulse Oximetry [ Assessment] Constitutional: other (Arousable to verbal stimulation) ENT: oropharynx moist, other (Orally intubated) Ascultation: Bilateral: rhonchi Cardiovascular: regular rate and rhythm (With episodes of tachycardia) Gastrointestinal: normoactive bowel sounds, soft, non-tender CBC and BMP: 06/08/21 04:42 06/08/21 04:42 ABG, PT/INR, D-dimer: ABG ABG pH 7.406 (7.320-7.450) 06/04/21 04:00 POC ABG pCO2 51.5 mmHg (32.0-48.0) H 06/04/21 04:00 ABG pCO2 54.4 mm Hg 06/02/21 05:42 POC ABG pO2 61.7 mmHg (83-108) L 06/04/21 04:00 ABG pO2 141.2 mm Hg (80.0-90.0) H 06/02/21 05:42 POC ABG HCO3 31.6 06/04/21 04:00 ABG O2 Saturation 92.7 (0-100) 06/04/21 04:00 PT/INR, D-dimer PT 14.2 Sec. (12.2-14.9) 06/07/21 10:50 INR 0.99 (0.87-1.13) 06/07/21 10:50 Abnormal lab findings: Abnormal Labs 05/23/21 05/23/21 05/23/21 05:55 09:38 09:38 WBC RBC 5.09 H Hgb Hct 46.2 H MCH MCHC RDW Plt Count Lymph % (Auto) [place] % (Auto) [place] # (Auto) Seg Neutrophils % Seg Neuts % (Manual) Lymphocytes % (Manual) Seg Neutrophils # Seg Neutrophils # Man Lymphocytes # (Manual) PT INR Heparin Anti-Xa Level ABG pH 7.265 L POC ABG pCO2 POC ABG pO2 ABG pO2 ABG HCO3 ABG O2 Saturation 94.6 L ABG Base Excess -4.5 L ABG Hemoglobin ABG Oxyhemoglobin ABG Potassium ABG Glucose Oxyhemoglobin 92.3 L Carboxyhemoglobin Sodium Potassium Chloride Carbon Dioxide 20 L BUN Creatinine Glucose 147 H POC Glucose Lactic Acid Calcium Phosphorus Magnesium Total Bilirubin Direct Bilirubin AST Total Creatine Kinase C-Reactive Protein NT-Pro-B Natriuret Pep Total Protein Albumin 3.6 L Triglycerides Arterial Blood Glucose Urine WBC (Auto) Salicylates Acetaminophen 05/23/21 05/23/21 05/23/21 09:38 09:38 09:38 WBC RBC Hgb Hct MCH MCHC RDW Plt Count Lymph % (Auto) [place] % (Auto) [place] # (Auto) Seg Neutrophils % Seg Neuts % (Manual) Lymphocytes % (Manual) Seg Neutrophils # Seg Neutrophils # Man Lymphocytes # (Manual) PT INR Heparin Anti-Xa Level ABG pH POC ABG pCO2 POC ABG pO2 ABG pO2 ABG HCO3 ABG O2 Saturation ABG Base Excess ABG Hemoglobin ABG Oxyhemoglobin ABG Potassium ABG Glucose Oxyhemoglobin Carboxyhemoglobin Sodium Potassium Chloride Carbon Dioxide BUN Creatinine Glucose POC Glucose Lactic Acid Calcium Phosphorus Magnesium Total Bilirubin Direct Bilirubin AST Total Creatine Kinase C-Reactive Protein NT-Pro-B Natriuret Pep 6058 H Total Protein Albumin Triglycerides Arterial Blood Glucose Urine WBC (Auto) Salicylates < 0.3 L Acetaminophen 5.0 L 05/23/21 05/23/21 05/24/21 12:49 Unknown 03:44 WBC RBC Hgb Hct MCH MCHC RDW Plt Count Lymph % (Auto) [place] % (Auto) [place] # (Auto) Seg Neutrophils % Seg Neuts % (Manual) Lymphocytes % (Manual) Seg Neutrophils # Seg Neutrophils # Man Lymphocytes # (Manual) PT INR Heparin Anti-Xa Level ABG pH 7.208 L 7.241 L POC ABG pCO2 POC ABG pO2 ABG pO2 52.2 L ABG HCO3 ABG O2 Saturation 93.5 L 83.7 L ABG Base Excess -6.7 L -3.7 L ABG Hemoglobin ABG Oxyhemoglobin ABG Potassium 5.6 H ABG Glucose 53 L Oxyhemoglobin 91.1 L 81.1 L Carboxyhemoglobin Sodium Potassium Chloride Carbon Dioxide BUN Creatinine Glucose POC Glucose Lactic Acid Calcium Phosphorus Magnesium Total Bilirubin Direct Bilirubin AST Total Creatine Kinase C-Reactive Protein NT-Pro-B Natriuret Pep Total Protein Albumin Triglycerides Arterial Blood Glucose 53 L Urine WBC (Auto) Salicylates Acetaminophen 05/24/21 05/24/21 05/24/21 05:14 05:14 09:35 WBC 23.3 H RBC 5.23 H Hgb Hct 47.3 H MCH MCHC RDW 15.3 H Plt Count Lymph % (Auto) [place] % (Auto) [place] # (Auto) Seg Neutrophils % Seg Neuts % (Manual) 12.0 L Lymphocytes % (Manual) 3.0 L Seg Neutrophils # Seg Neutrophils # Man Lymphocytes # (Manual) 0.7 L PT INR Heparin Anti-Xa Level ABG pH POC ABG pCO2 POC ABG pO2 ABG pO2 ABG HCO3 ABG O2 Saturation ABG Base Excess ABG Hemoglobin ABG Oxyhemoglobin ABG Potassium ABG Glucose Oxyhemoglobin Carboxyhemoglobin Sodium Potassium 6.3 H* D Chloride 107.3 H Carbon Dioxide 20 L BUN 33 H Creatinine 3.5 H D Glucose 56 L POC Glucose Lactic Acid Calcium Phosphorus Magnesium Total Bilirubin 1.90 H Direct Bilirubin AST Total Creatine Kinase 556 H C-Reactive Protein NT-Pro-B Natriuret Pep Total Protein 4.9 L D Albumin 2.8 L Triglycerides Arterial Blood Glucose Urine WBC (Auto) Salicylates Acetaminophen 05/24/21 05/24/21 05/25/21 19:45 Unknown 04:23 WBC 20.1 H RBC Hgb Hct MCH MCHC 31 L RDW 15.5 H Plt Count Lymph % (Auto) [place] % (Auto) [place] # (Auto) Seg Neutrophils % Seg Neuts % (Manual) 94.0 H Lymphocytes % (Manual) 5.0 L Seg Neutrophils # Seg Neutrophils # Man 18.9 H Lymphocytes # (Manual) 1.0 L PT INR Heparin Anti-Xa Level ABG pH POC ABG pCO2 POC ABG pO2 ABG pO2 ABG HCO3 ABG O2 Saturation ABG Base Excess ABG Hemoglobin ABG Oxyhemoglobin ABG Potassium ABG Glucose Oxyhemoglobin Carboxyhemoglobin Sodium Potassium 5.7 H Chloride 108.9 H Carbon Dioxide 21 L BUN 36 H Creatinine 2.6 H Glucose 108 H POC Glucose Lactic Acid Calcium Phosphorus Magnesium Total Bilirubin Direct Bilirubin AST Total Creatine Kinase C-Reactive Protein NT-Pro-B Natriuret Pep Total Protein Albumin Triglycerides Arterial Blood Glucose Urine WBC (Auto) 78.0 H Salicylates Acetaminophen 05/25/21 05/25/21 05/25/21 04:23 09:14 11:46 WBC RBC Hgb Hct MCH MCHC RDW Plt Count Lymph % (Auto) [place] % (Auto) [place] # (Auto) Seg Neutrophils % Seg Neuts % (Manual) Lymphocytes % (Manual) Seg Neutrophils # Seg Neutrophils # Man Lymphocytes # (Manual) PT INR Heparin Anti-Xa Level ABG pH POC ABG pCO2 POC ABG pO2 ABG pO2 ABG HCO3 ABG O2 Saturation ABG Base Excess ABG Hemoglobin ABG Oxyhemoglobin ABG Potassium ABG Glucose Oxyhemoglobin Carboxyhemoglobin Sodium Potassium Chloride 111.4 H Carbon Dioxide 18 L BUN 33 H Creatinine 1.9 H Glucose 121 H POC Glucose Lactic Acid 2.40 H* 2.60 H* Calcium Phosphorus Magnesium Total Bilirubin Direct Bilirubin AST Total Creatine Kinase C-Reactive Protein NT-Pro-B Natriuret Pep Total Protein Albumin Triglycerides Arterial Blood Glucose Urine WBC (Auto) Salicylates Acetaminophen 05/25/21 05/26/21 05/26/21 18:00 03:16 05:55 WBC 22.0 H RBC Hgb Hct MCH MCHC RDW 15.3 H Plt Count Lymph % (Auto) [place] % (Auto) [place] # (Auto) Seg Neutrophils % Seg Neuts % (Manual) 96.0 H Lymphocytes % (Manual) 2.0 L Seg Neutrophils # Seg Neutrophils # Man 21.1 H Lymphocytes # (Manual) 0.4 L PT INR Heparin Anti-Xa Level ABG pH POC ABG pCO2 POC ABG pO2 ABG pO2 208.2 H ABG HCO3 ABG O2 Saturation 99.3 H ABG Base Excess -2.7 L -2.6 L ABG Hemoglobin 13.7 L 13.0 L ABG Oxyhemoglobin ABG Potassium ABG Glucose Oxyhemoglobin 94.8 L Carboxyhemoglobin Sodium Potassium Chloride Carbon Dioxide BUN Creatinine Glucose POC Glucose Lactic Acid Calcium Phosphorus Magnesium Total Bilirubin Direct Bilirubin AST Total Creatine Kinase C-Reactive Protein NT-Pro-B Natriuret Pep Total Protein Albumin Triglycerides Arterial Blood Glucose Urine WBC (Auto) Salicylates Acetaminophen 05/26/21 05/27/21 05/27/21 05:55 03:18 03:18 WBC 21.5 H RBC Hgb Hct MCH MCHC RDW 15.5 H Plt Count Lymph % (Auto) [place] % (Auto) [place] # (Auto) Seg Neutrophils % Seg Neuts % (Manual) 92.0 H Lymphocytes % (Manual) 5.0 L Seg Neutrophils # Seg Neutrophils # Man 19.8 H Lymphocytes # (Manual) 1.1 L PT INR Heparin Anti-Xa Level ABG pH POC ABG pCO2 POC ABG pO2 ABG pO2 ABG HCO3 ABG O2 Saturation ABG Base Excess ABG Hemoglobin ABG Oxyhemoglobin ABG Potassium ABG Glucose Oxyhemoglobin Carboxyhemoglobin Sodium 148 H Potassium Chloride 111.3 H 113.8 H Carbon Dioxide 21 L 20 L BUN 23 H Creatinine Glucose 102 H 103 H POC Glucose Lactic Acid Calcium 8.3 L Phosphorus Magnesium Total Bilirubin 7.80 H Direct Bilirubin AST 112 H Total Creatine Kinase C-Reactive Protein NT-Pro-B Natriuret Pep Total Protein 5.2 L Albumin 2.9 L Triglycerides Arterial Blood Glucose Urine WBC (Auto) Salicylates Acetaminophen 05/27/21 05/28/21 05/28/21 03:18 05:55 10:05 WBC 11.4 H RBC Hgb Hct MCH MCHC RDW 15.5 H Plt Count Lymph % (Auto) 11.2 L [place] % (Auto) 8.6 H [place] # (Auto) 1.0 H Seg Neutrophils % 78.9 H Seg Neuts % (Manual) Lymphocytes % (Manual) Seg Neutrophils # 9.0 H Seg Neutrophils # Man Lymphocytes # (Manual) PT INR Heparin Anti-Xa Level ABG pH POC ABG pCO2 POC ABG pO2 ABG pO2 104.7 H ABG HCO3 ABG O2 Saturation ABG Base Excess -3.1 L ABG Hemoglobin 13.2 L ABG Oxyhemoglobin ABG Potassium ABG Glucose Oxyhemoglobin Carboxyhemoglobin Sodium Potassium Chloride Carbon Dioxide BUN Creatinine Glucose POC Glucose Lactic Acid Calcium Phosphorus Magnesium Total Bilirubin 7.90 H Direct Bilirubin 6.0 H AST 114 H Total Creatine Kinase C-Reactive Protein NT-Pro-B Natriuret Pep Total Protein 5.2 L Albumin 2.8 L Triglycerides Arterial Blood Glucose Urine WBC (Auto) Salicylates Acetaminophen 05/28/21 05/28/21 05/28/21 10:05 10:05 10:05 WBC RBC Hgb Hct MCH MCHC RDW Plt Count Lymph % (Auto) [place] % (Auto) [place] # (Auto) Seg Neutrophils % Seg Neuts % (Manual) Lymphocytes % (Manual) Seg Neutrophils # Seg Neutrophils # Man Lymphocytes # (Manual) PT INR Heparin Anti-Xa Level ABG pH POC ABG pCO2 POC ABG pO2 ABG pO2 ABG HCO3 ABG O2 Saturation ABG Base Excess ABG Hemoglobin ABG Oxyhemoglobin ABG Potassium ABG Glucose Oxyhemoglobin Carboxyhemoglobin Sodium 149 H Potassium Chloride 119.9 H Carbon Dioxide 18 L BUN Creatinine Glucose 103 H POC Glucose Lactic Acid 2.10 H* Calcium Phosphorus Magnesium Total Bilirubin Direct Bilirubin AST Total Creatine Kinase C-Reactive Protein 34.80 H NT-Pro-B Natriuret Pep Total Protein Albumin Triglycerides Arterial Blood Glucose Urine WBC (Auto) Salicylates Acetaminophen 05/29/21 05/29/21 05/29/21 03:00 05:02 05:02 WBC 13.0 H RBC Hgb Hct MCH MCHC RDW 15.4 H Plt Count Lymph % (Auto) [place] % (Auto) [place] # (Auto) Seg Neutrophils % Seg Neuts % (Manual) Lymphocytes % (Manual) Seg Neutrophils # Seg Neutrophils # Man Lymphocytes # (Manual) PT INR Heparin Anti-Xa Level ABG pH POC ABG pCO2 POC ABG pO2 ABG pO2 138.1 H ABG HCO3 ABG O2 Saturation ABG Base Excess -3.6 L ABG Hemoglobin 12.8 L ABG Oxyhemoglobin ABG Potassium ABG Glucose Oxyhemoglobin Carboxyhemoglobin Sodium 150 H Potassium Chloride 119.8 H Carbon Dioxide 18 L BUN Creatinine Glucose 109 H POC Glucose Lactic Acid Calcium Phosphorus 2.20 L Magnesium 1.50 L Total Bilirubin Direct Bilirubin AST Total Creatine Kinase C-Reactive Protein NT-Pro-B Natriuret Pep Total Protein Albumin Triglycerides Arterial Blood Glucose Urine WBC (Auto) Salicylates Acetaminophen 05/29/21 05/29/21 05/30/21 17:00 23:37 04:29 WBC RBC Hgb 10.8 L Hct 33.4 L MCH MCHC RDW 15.7 H Plt Count Lymph % (Auto) [place] % (Auto) [place] # (Auto) Seg Neutrophils % Seg Neuts % (Manual) Lymphocytes % (Manual) Seg Neutrophils # Seg Neutrophils # Man Lymphocytes # (Manual) PT INR Heparin Anti-Xa Level ABG pH POC ABG pCO2 POC ABG pO2 ABG pO2 ABG HCO3 ABG O2 Saturation ABG Base Excess ABG Hemoglobin ABG Oxyhemoglobin ABG Potassium ABG Glucose Oxyhemoglobin Carboxyhemoglobin Sodium Potassium Chloride Carbon Dioxide BUN Creatinine Glucose POC Glucose 114 H 122 H Lactic Acid Calcium Phosphorus Magnesium Total Bilirubin Direct Bilirubin AST Total Creatine Kinase C-Reactive Protein NT-Pro-B Natriuret Pep Total Protein Albumin Triglycerides Arterial Blood Glucose Urine WBC (Auto) Salicylates Acetaminophen 05/30/21 05/30/21 05/31/21 04:29 23:36 04:00 WBC 11.2 H RBC Hgb 10.9 L Hct 34.3 L MCH MCHC RDW 15.4 H Plt Count Lymph % (Auto) [place] % (Auto) [place] # (Auto) Seg Neutrophils % Seg Neuts % (Manual) Lymphocytes % (Manual) Seg Neutrophils # Seg Neutrophils # Man Lymphocytes # (Manual) PT INR Heparin Anti-Xa Level ABG pH POC ABG pCO2 POC ABG pO2 ABG pO2 ABG HCO3 ABG O2 Saturation ABG Base Excess ABG Hemoglobin ABG Oxyhemoglobin ABG Potassium ABG Glucose Oxyhemoglobin Carboxyhemoglobin Sodium Potassium 3.2 L Chloride 112.4 H Carbon Dioxide 21 L BUN Creatinine 0.7 L Glucose 128 H POC Glucose 120 H Lactic Acid Calcium Phosphorus Magnesium Total Bilirubin Direct Bilirubin AST Total Creatine Kinase C-Reactive Protein NT-Pro-B Natriuret Pep Total Protein Albumin Triglycerides Arterial Blood Glucose Urine WBC (Auto) Salicylates Acetaminophen 05/31/21 05/31/21 05/31/21 04:00 11:50 16:16 WBC RBC Hgb Hct MCH MCHC RDW Plt Count Lymph % (Auto) [place] % (Auto) [place] # (Auto) Seg Neutrophils % Seg Neuts % (Manual) Lymphocytes % (Manual) Seg Neutrophils # Seg Neutrophils # Man Lymphocytes # (Manual) PT INR Heparin Anti-Xa Level ABG pH POC ABG pCO2 POC ABG pO2 ABG pO2 ABG HCO3 ABG O2 Saturation ABG Base Excess ABG Hemoglobin ABG Oxyhemoglobin ABG Potassium ABG Glucose Oxyhemoglobin Carboxyhemoglobin Sodium 148 H Potassium Chloride 114.8 H Carbon Dioxide BUN Creatinine Glucose 151 H POC Glucose 123 H 107 H Lactic Acid Calcium Phosphorus Magnesium Total Bilirubin Direct Bilirubin AST Total Creatine Kinase C-Reactive Protein NT-Pro-B Natriuret Pep Total Protein Albumin Triglycerides Arterial Blood Glucose Urine WBC (Auto) Salicylates Acetaminophen 06/01/21 06/01/21 06/01/21 02:55 04:10 04:10 WBC 16.5 H RBC Hgb Hct MCH MCHC RDW 16.0 H Plt Count Lymph % (Auto) [place] % (Auto) [place] # (Auto) Seg Neutrophils % Seg Neuts % (Manual) Lymphocytes % (Manual) Seg Neutrophils # Seg Neutrophils # Man Lymphocytes # (Manual) PT INR Heparin Anti-Xa Level ABG pH 7.334 L POC ABG pCO2 POC ABG pO2 ABG pO2 ABG HCO3 26.1 H ABG O2 Saturation ABG Base Excess ABG Hemoglobin 12.6 L ABG Oxyhemoglobin ABG Potassium ABG Glucose Oxyhemoglobin 93.1 L Carboxyhemoglobin Sodium 148 H Potassium 3.4 L Chloride 108.8 H Carbon Dioxide BUN Creatinine Glucose 113 H POC Glucose Lactic Acid Calcium Phosphorus Magnesium Total Bilirubin Direct Bilirubin AST Total Creatine Kinase C-Reactive Protein NT-Pro-B Natriuret Pep Total Protein Albumin Triglycerides Arterial Blood Glucose Urine WBC (Auto) Salicylates Acetaminophen 06/01/21 06/01/21 06/02/21 12:46 15:30 05:42 WBC RBC Hgb Hct MCH MCHC RDW Plt Count Lymph % (Auto) [place] % (Auto) [place] # (Auto) Seg Neutrophils % Seg Neuts % (Manual) Lymphocytes % (Manual) Seg Neutrophils # Seg Neutrophils # Man Lymphocytes # (Manual) PT INR Heparin Anti-Xa Level ABG pH POC ABG pCO2 POC ABG pO2 ABG pO2 114.5 H 141.2 H ABG HCO3 29.6 H 30.6 H ABG O2 Saturation ABG Base Excess 4.5 H 4.1 H ABG Hemoglobin 11.8 L 12.0 L ABG Oxyhemoglobin ABG Potassium ABG Glucose Oxyhemoglobin Carboxyhemoglobin Sodium Potassium Chloride Carbon Dioxide BUN Creatinine Glucose POC Glucose 119 H Lactic Acid Calcium Phosphorus Magnesium Total Bilirubin Direct Bilirubin AST Total Creatine Kinase C-Reactive Protein NT-Pro-B Natriuret Pep Total Protein Albumin Triglycerides Arterial Blood Glucose Urine WBC (Auto) Salicylates Acetaminophen 06/02/21 06/02/21 06/02/21 07:41 07:41 07:41 WBC 17.4 H RBC Hgb 11.1 L Hct 34.3 L MCH MCHC RDW 15.9 H Plt Count Lymph % (Auto) [place] % (Auto) [place] # (Auto) Seg Neutrophils % Seg Neuts % (Manual) Lymphocytes % (Manual) Seg Neutrophils # Seg Neutrophils # Man Lymphocytes # (Manual) PT INR Heparin Anti-Xa Level ABG pH POC ABG pCO2 POC ABG pO2 ABG pO2 ABG HCO3 ABG O2 Saturation ABG Base Excess ABG Hemoglobin ABG Oxyhemoglobin ABG Potassium ABG Glucose Oxyhemoglobin Carboxyhemoglobin Sodium 150 H Potassium Chloride 111.8 H Carbon Dioxide BUN Creatinine Glucose POC Glucose Lactic Acid Calcium Phosphorus Magnesium Total Bilirubin 3.30 H Direct Bilirubin 2.4 H AST 48 H Total Creatine Kinase C-Reactive Protein NT-Pro-B Natriuret Pep Total Protein 6.1 L Albumin 2.1 L Triglycerides Arterial Blood Glucose Urine WBC (Auto) Salicylates Acetaminophen 06/02/21 06/02/21 06/03/21 20:00 23:30 08:29 WBC 12.2 H RBC Hgb 11.7 L Hct MCH 27 L MCHC 31 L RDW 15.4 H Plt Count Lymph % (Auto) [place] % (Auto) [place] # (Auto) Seg Neutrophils % Seg Neuts % (Manual) Lymphocytes % (Manual) Seg Neutrophils # Seg Neutrophils # Man Lymphocytes # (Manual) PT INR Heparin Anti-Xa Level ABG pH POC ABG pCO2 POC ABG pO2 ABG pO2 ABG HCO3 ABG O2 Saturation ABG Base Excess ABG Hemoglobin ABG Oxyhemoglobin ABG Potassium ABG Glucose Oxyhemoglobin Carboxyhemoglobin Sodium Potassium Chloride 111.1 H Carbon Dioxide BUN Creatinine 0.7 L Glucose 105 H POC Glucose 112 H Lactic Acid Calcium 8.3 L Phosphorus Magnesium Total Bilirubin 2.90 H Direct Bilirubin AST 53 H Total Creatine Kinase C-Reactive Protein NT-Pro-B Natriuret Pep Total Protein 6.2 L Albumin 1.8 L Triglycerides Arterial Blood Glucose Urine WBC (Auto) Salicylates Acetaminophen 06/03/21 06/03/21 06/04/21 Unknown Unknown 04:00 WBC RBC Hgb 10.2 L Hct 31.9 L D MCH MCHC RDW Plt Count Lymph % (Auto) [place] % (Auto) [place] # (Auto) Seg Neutrophils % Seg Neuts % (Manual) Lymphocytes % (Manual) Seg Neutrophils # Seg Neutrophils # Man Lymphocytes # (Manual) PT 16.7 H INR 1.22 H Heparin Anti-Xa Level ABG pH POC ABG pCO2 51.5 H POC ABG pO2 61.7 L ABG pO2 ABG HCO3 ABG O2 Saturation ABG Base Excess ABG Hemoglobin ABG Oxyhemoglobin 90.9 L ABG Potassium ABG Glucose Oxyhemoglobin Carboxyhemoglobin 1.6 H Sodium Potassium Chloride Carbon Dioxide BUN Creatinine Glucose POC Glucose Lactic Acid Calcium Phosphorus Magnesium Total Bilirubin Direct Bilirubin AST Total Creatine Kinase C-Reactive Protein NT-Pro-B Natriuret Pep Total Protein Albumin Triglycerides Arterial Blood Glucose Urine WBC (Auto) Salicylates Acetaminophen 06/04/21 06/04/21 06/04/21 04:10 04:10 04:10 WBC 11.7 H RBC Hgb 11.2 L Hct MCH MCHC 31 L RDW 15.8 H Plt Count 447 H Lymph % (Auto) [place] % (Auto) [place] # (Auto) Seg Neutrophils % Seg Neuts % (Manual) Lymphocytes % (Manual) Seg Neutrophils # Seg Neutrophils # Man Lymphocytes # (Manual) PT 15.8 H INR 1.14 H Heparin Anti-Xa Level ABG pH POC ABG pCO2 POC ABG pO2 ABG pO2 ABG HCO3 ABG O2 Saturation ABG Base Excess ABG Hemoglobin ABG Oxyhemoglobin ABG Potassium ABG Glucose Oxyhemoglobin Carboxyhemoglobin Sodium 146 H Potassium Chloride 109.4 H Carbon Dioxide BUN Creatinine 0.6 L Glucose 122 H POC Glucose Lactic Acid Calcium Phosphorus Magnesium Total Bilirubin Direct Bilirubin AST Total Creatine Kinase C-Reactive Protein NT-Pro-B Natriuret Pep Total Protein Albumin Triglycerides 161 H Arterial Blood Glucose Urine WBC (Auto) Salicylates Acetaminophen 06/04/21 06/05/21 06/05/21 05:16 04:00 04:00 WBC RBC Hgb 11.3 L Hct 34.9 L MCH MCHC RDW 16.0 H Plt Count 515 H Lymph % (Auto) [place] % (Auto) [place] # (Auto) Seg Neutrophils % Seg Neuts % (Manual) Lymphocytes % (Manual) Seg Neutrophils # Seg Neutrophils # Man Lymphocytes # (Manual) PT INR Heparin Anti-Xa Level ABG pH POC ABG pCO2 POC ABG pO2 ABG pO2 ABG HCO3 ABG O2 Saturation ABG Base Excess ABG Hemoglobin ABG Oxyhemoglobin ABG Potassium ABG Glucose Oxyhemoglobin Carboxyhemoglobin Sodium Potassium 3.5 L Chloride Carbon Dioxide BUN 7 L Creatinine 0.6 L Glucose 131 H POC Glucose 107 H Lactic Acid Calcium Phosphorus Magnesium Total Bilirubin Direct Bilirubin AST Total Creatine Kinase C-Reactive Protein NT-Pro-B Natriuret Pep Total Protein Albumin Triglycerides Arterial Blood Glucose Urine WBC (Auto) Salicylates Acetaminophen 06/05/21 06/05/21 06/05/21 04:00 05:32 11:20 WBC RBC Hgb Hct MCH MCHC RDW Plt Count Lymph % (Auto) [place] % (Auto) [place] # (Auto) Seg Neutrophils % Seg Neuts % (Manual) Lymphocytes % (Manual) Seg Neutrophils # Seg Neutrophils # Man Lymphocytes # (Manual) PT INR Heparin Anti-Xa Level < 0.10 L 0.21 L ABG pH POC ABG pCO2 POC ABG pO2 ABG pO2 ABG HCO3 ABG O2 Saturation ABG Base Excess ABG Hemoglobin ABG Oxyhemoglobin ABG Potassium ABG Glucose Oxyhemoglobin Carboxyhemoglobin Sodium Potassium Chloride Carbon Dioxide BUN Creatinine Glucose POC Glucose 123 H Lactic Acid Calcium Phosphorus Magnesium Total Bilirubin Direct Bilirubin AST Total Creatine Kinase C-Reactive Protein NT-Pro-B Natriuret Pep Total Protein Albumin Triglycerides Arterial Blood Glucose Urine WBC (Auto) Salicylates Acetaminophen 06/05/21 06/05/21 06/06/21 12:15 17:12 02:02 WBC RBC Hgb Hct MCH MCHC RDW Plt Count Lymph % (Auto) [place] % (Auto) [place] # (Auto) Seg Neutrophils % Seg Neuts % (Manual) Lymphocytes % (Manual) Seg Neutrophils # Seg Neutrophils # Man Lymphocytes # (Manual) PT INR Heparin Anti-Xa Level ABG pH POC ABG pCO2 POC ABG pO2 ABG pO2 ABG HCO3 ABG O2 Saturation ABG Base Excess ABG Hemoglobin ABG Oxyhemoglobin ABG Potassium ABG Glucose Oxyhemoglobin Carboxyhemoglobin Sodium Potassium Chloride Carbon Dioxide BUN Creatinine Glucose POC Glucose 120 H 119 H 130 H Lactic Acid Calcium Phosphorus Magnesium Total Bilirubin Direct Bilirubin AST Total Creatine Kinase C-Reactive Protein NT-Pro-B Natriuret Pep Total Protein Albumin Triglycerides Arterial Blood Glucose Urine WBC (Auto) Salicylates Acetaminophen 06/06/21 06/06/21 06/06/21 04:00 04:00 10:00 WBC RBC Hgb 10.7 L Hct 33.6 L MCH MCHC RDW 16.2 H Plt Count 537 H Lymph % (Auto) [place] % (Auto) [place] # (Auto) Seg Neutrophils % Seg Neuts % (Manual) Lymphocytes % (Manual) Seg Neutrophils # Seg Neutrophils # Man Lymphocytes # (Manual) PT INR Heparin Anti-Xa Level 0.14 L ABG pH POC ABG pCO2 POC ABG pO2 ABG pO2 ABG HCO3 ABG O2 Saturation ABG Base Excess ABG Hemoglobin ABG Oxyhemoglobin ABG Potassium ABG Glucose Oxyhemoglobin Carboxyhemoglobin Sodium 153 H D Potassium 3.4 L Chloride 115.1 H Carbon Dioxide BUN 6 L Creatinine 0.5 L Glucose 110 H POC Glucose Lactic Acid Calcium 7.7 L Phosphorus Magnesium 1.40 L Total Bilirubin Direct Bilirubin AST Total Creatine Kinase C-Reactive Protein NT-Pro-B Natriuret Pep Total Protein Albumin Triglycerides Arterial Blood Glucose Urine WBC (Auto) Salicylates Acetaminophen 0106/06/21 06/06/21 11:31 17:45 23:04 WBC RBC Hgb Hct MCH MCHC RDW Plt Count Lymph % (Auto) [place] % (Auto) [place] # (Auto) Seg Neutrophils % Seg Neuts % (Manual) Lymphocytes % (Manual) Seg Neutrophils # Seg Neutrophils # Man Lymphocytes # (Manual) PT INR Heparin Anti-Xa Level 0.11 L ABG pH POC ABG pCO2 POC ABG pO2 ABG pO2 ABG HCO3 ABG O2 Saturation ABG Base Excess ABG Hemoglobin ABG Oxyhemoglobin ABG Potassium ABG Glucose Oxyhemoglobin Carboxyhemoglobin Sodium Potassium Chloride Carbon Dioxide BUN Creatinine Glucose POC Glucose 112 H 113 H Lactic Acid Calcium Phosphorus Magnesium Total Bilirubin Direct Bilirubin AST Total Creatine Kinase C-Reactive Protein NT-Pro-B Natriuret Pep Total Protein Albumin Triglycerides Arterial Blood Glucose Urine WBC (Auto) Salicylates Acetaminophen 06/07/21 06/07/21 06/07/21 05:27 11:03 18:06 WBC RBC Hgb Hct MCH MCHC RDW Plt Count Lymph % (Auto) [place] % (Auto) [place] # (Auto) Seg Neutrophils % Seg Neuts % (Manual) Lymphocytes % (Manual) Seg Neutrophils # Seg Neutrophils # Man Lymphocytes # (Manual) PT INR Heparin Anti-Xa Level ABG pH POC ABG pCO2 POC ABG pO2 ABG pO2 ABG HCO3 ABG O2 Saturation ABG Base Excess ABG Hemoglobin ABG Oxyhemoglobin ABG Potassium ABG Glucose Oxyhemoglobin Carboxyhemoglobin Sodium Potassium Chloride Carbon Dioxide BUN Creatinine Glucose POC Glucose 111 H 142 H 114 H Lactic Acid Calcium Phosphorus Magnesium Total Bilirubin Direct Bilirubin AST Total Creatine Kinase C-Reactive Protein NT-Pro-B Natriuret Pep Total Protein Albumin Triglycerides Arterial Blood Glucose Urine WBC (Auto) Salicylates Acetaminophen 06/07/21 06/07/21 06/08/21 Unknown Unknown 00:49 WBC RBC 3.38 L Hgb 9.8 L Hct 29.4 L MCH MCHC RDW 16.2 H Plt Count 473 H Lymph % (Auto) [place] % (Auto) [place] # (Auto) Seg Neutrophils % Seg Neuts % (Manual) Lymphocytes % (Manual) Seg Neutrophils # Seg Neutrophils # Man Lymphocytes # (Manual) PT INR Heparin Anti-Xa Level ABG pH POC ABG pCO2 POC ABG pO2 ABG pO2 ABG HCO3 ABG O2 Saturation ABG Base Excess ABG Hemoglobin ABG Oxyhemoglobin ABG Potassium ABG Glucose Oxyhemoglobin Carboxyhemoglobin Sodium Potassium Chloride 107.4 H Carbon Dioxide BUN 8 L Creatinine 0.6 L Glucose 123 H POC Glucose 125 H Lactic Acid Calcium Phosphorus 2.30 L Magnesium Total Bilirubin Direct Bilirubin AST Total Creatine Kinase C-Reactive Protein NT-Pro-B Natriuret Pep Total Protein Albumin Triglycerides Arterial Blood Glucose Urine WBC (Auto) Salicylates Acetaminophen 06/08/21 06/08/21 06/08/21 04:42 04:42 05:15 WBC RBC 3.62 L Hgb 10.2 L Hct 31.9 L MCH MCHC RDW 16.5 H Plt Count 502 H Lymph % (Auto) [place] % (Auto) [place] # (Auto) Seg Neutrophils % Seg Neuts % (Manual) Lymphocytes % (Manual) Seg Neutrophils # Seg Neutrophils # Man Lymphocytes # (Manual) PT INR Heparin Anti-Xa Level ABG pH POC ABG pCO2 POC ABG pO2 ABG pO2 ABG HCO3 ABG O2 Saturation ABG Base Excess ABG Hemoglobin ABG Oxyhemoglobin ABG Potassium ABG Glucose Oxyhemoglobin Carboxyhemoglobin Sodium Potassium Chloride 109.9 H Carbon Dioxide BUN Creatinine 0.5 L Glucose 108 H POC Glucose 113 H Lactic Acid Calcium 8.2 L Phosphorus Magnesium 1.60 L Total Bilirubin Direct Bilirubin AST Total Creatine Kinase C-Reactive Protein NT-Pro-B Natriuret Pep Total Protein Albumin Triglycerides Arterial Blood Glucose Urine WBC (Auto) Salicylates Acetaminophen Allied health notes reviewed: nursing
--- NOTE | 2021-06-08 11:38 | Progress Note ---
<RISSA DAHL - Last Filed: 06/08/21 17:44> Assessment and Plan Assessment and plan: This is a 40-year-old male with known history of HFrEF, methamphetamine dependence, and nicotine dependence admitted for drug overdose and acute metabolic encephalopathy. Patient went into respiratory failure and was intubated requiring ventilatory support s/p trach and PEG. Hospital Course to date: 05/25/2021: Worsening interstitial infiltrates. unclear if this is a developing pneumonia from aspiration/volume overload. Empiric abx coverage. ECHO with bubble study ordered. Placed on iv abx. kidney function improving. 05/26/2021: Tachycardic on levo gtt, advised RN to titrate down as long as MAP > 65. HR improved on my follow up encounter. PCCM titrating vent down. Renal function improving....Cr now 1.3. No indication for WIRE STRANDER at this time per nephro. 05/27/2021: Extubated yesterday however in respiratory distress, re-intubated. Patient has severe systolic heart failure. Cardiology consulted for severe systolic heart failure. Will need to discuss optimal strategy regarding diuresis. 05/28: Patient remains on the vent. Febrile overnight, no longer on IV abx, leukocytosis improved, will panculture patient for now hold off on IV Abx. D/W CCM plan to wean sedation, depends on patient's mental status possible extubation today. Patient with low EF 20 to 25%, IVF D/nickolas. [facility]WF for hypernatrenia, repeat lab in the am. 05/29- With increased agitation and tachycardia, maxed out on precedex and fentanyl gtt. Patient appears to be in withdrawal, Ativan added. Remains febrile, off pressors this am, leukocytosis improved. Continue to f/u on culture data. Hypernatremia this am, on D5w per nephro, electrolyte repleted, repeat labs in the am 05/30: Patient very aggresive this am maxed on sedation, X1 dose of Geodeon ordered. Now on low dose Levophed, patient still with low grade fevers this am. Hypotension is probably r/t sedation. Recent cultures with NGTD, UA negative. Continue to monitor for now. Na improved, IVF off this and K repleted, repeat labs in the am. 05/31: Patient was extubated today, IV fluid discontinued, given Lasix per cardiology, increasing free water flush. Weaned off Levophed. Patient noted to be lethargic several hours post Precedex infusion discontinuation. Patient extubated to BiPAP after given racemic epinephrine. Patient remains lethargic and off of BiPAP will consider CT head in the a.m. 06/01: Patient remained on BiPAP overnight, given agitation as needed Haldol/Ativan and Benadryl given while patient remained maxed on Precedex. Given increased work of breathing and tachypnea patient was electively reintubated. Free water flushes/tube feeding/p.o. medications to restart upon c onfirmation of DHT. Lasix stopped per cardiology recommendations. CT head ordered. 06/02: Started on midodrine 3 times daily per cardiology as patient has soft blood pressures and required Levophed overnight. Upper extremity with PICC noted to have significant swelling and possible discoloration around insertion site. Ordered RN to remove PICC and use peripheral IVs as patient does not have any medications requiring central access at this time. Hypernatremia worsened however patient did not receive multiple doses of free water flush while on continuous BiPAP. [facility] made vent changes. Surgery consulted. 06/03: Patient noted to have an acute DVT in right upper extremity and started on heparin drip. is technician noted possible foreign object retained and vascular surgery was consulted. Obtain CT of upper extremity. Surgery was consulted for trach/PEG. Patient remains on max doses of fentanyl, propofol and Precedex. Versed added. Started on Unasyn. MRI brain ordered. 06/04: Patient received a trach/PEG today, remains on propofol, Versed, fentanyl. Heparin drip off and tube feeding off for surgery. 06/05: Tracheal aspirate grew Enterobacter which is sensitive to ampicillin which the patient was still on. Slight hypokalemia noted reduce repleted. Patient remains on Precedex, propofol and Versed for sedation. Bilateral soft restraints in place. [facility] will hold off weaning trials as patient is still not adequate sedated. Heparin drip resumed. 06/06: Started on Seroquel twice daily in efforts to wean off sedation. Hypernatremia and hyperchloremia noted and free water flush increased, potassium and magnesium repleted. 06/07: Back on sedation overnight due to increase agitation. Plan to wean off propofol, continue daily PST. No longer of pressors, BB and lasix resumed to prevent worsening pulmonary edema/worse pulmonary status. AC was also switched to PO Elquis for DVT. Possible LTAC placement, case management to arrange. 06/08: Patient is more alert today, following simple commands. Remains on fentanyl and precedes gtt. Plan is to wean off fentanyl today for possible PST. Case management to arrange placement. Assessment and Plan #Acute hypoxic respiratory failure #Bilateral Pneumonia #Possible Aspiration - Intially Intubated in the ED on 05/23 for airway protection - Extubated and reintubated on 05/27 for respiratory distress - Extubated on 05/31, was reintubated on 06/01 - 06/04 s/p Trach and PEG by Gen Surgery - Vent Setting:A/C-30%,6,20,350 - [facility] consulted, appreciate recommendations - Continue Nebs per CCM - VAP bundle addressed - Aspiration precaution HOB above 30 - Daily SBT as tolerated - PRN ABG and CXR per CCM - Continue SPO2 monitoring for SPO2 goal above 92% - Plan for possible LTAC placement- Case management to arrange #HFrEF #Cardiomegaly - Cardiology on consult, appreciated recommendations - 05/25/2021: Echo- EF 20 to 25%. Severe global hypokinesis of left ventricle. Left ventricle is moderately dilated. Doppler flow suggests impaired LV relaxation. Moderate mitral regurgitation. No pericardial effusion - 08/04/2020: Cardiac cath- Angiographically normal coronary arteries. This is indicative of a nonischemic cardiomyopathy. Mildly elevated biventricular filling pressures with normal cardiac index - 08/02/2020: Echo- EF 18%,Severe global LV hypokinesis. Normal LV diastolic function. LA mildly dilated. Moderate mitral regurgitation with an eccentric MR jet(s),No previous echocardiogram for comparison. - Patient is off pressors - BP normalized, midodrine has been held - BB and Lasix resumed - Continue blood pressure monitor per protocol - Maintain MAP above 65 #Acute Toxic Metabolic Encephalopathy #Overdose by Ingestion #H/o Polysubstance Abuse - amphetamines in tox screen - remains on fentanyl and precedex gtts - On Seroquel - Plan to wean off fentanyl gtt - Continue PRN Ativan and Haldol - Titrate sedation for RASS goal of 0 to -1 - Prn analgesia for CPOT greater than 3 - Maintenance of sleep-wake cycle #Acute Kidney Injury due to Acute Tubular Necrosis #Hypokalemia #Hypernatremia-improved - Cr: 3.5 on 03/24, baseline 0.9. suspect dehydration vs toxic exposure vs rhabdo - Renal function improved with IV hydration - Nephrology on consult, appreciated recommendation - Strict intake and output - Daily weight - Avoid nephrotoxic medications; Renally dose medications - Monitor and replace electrolytes as needed - Trend BMP #Sepsis POA #Sinusitis #Bilateral Pneumonia #Lactic Acidosis - febrile, elevated lactic, source likely pulmonary - COVID PCR neg - UA is negative. Blood culture & Urine culture NGTD - 06/02 sputum culture + enterobacter - Continue IV Abx-Unasyn - Continue to F/U on B.cult - Daily CBC monitor - Consider ID consult if with persistent fever or/and if leukocytosis reoccur #Acute Right Upper Extremity DVT #C/f Possible Retained foreign object in right upper extremity - Noted on right upper extremity Doppler - C/f Possible Retained foreign object in right upper extremity - Vascular Surgery was consulted - Bedside ultrasound by Vascular revealed possible fibrin sheath - CT of Right upper extremity shows no retained object - On Heparin drip- switch to PO Eliquis - #GI/DVT Prophylaxis - Continue PPI- pepcid - Switched AC to Eliquis - SCDs to bilateral lower extremities while in bed The high probability of a clinically significant, sudden or life threatening deterioration of the [multiple] system(s) required my full and direct attention, intervention and personal management. The aggregate critical care time was [60] minutes. This time is in addition to time spent performing reported procedures but includes the following: [x] Data Review and interpretation [x] Patient assessment and monitoring of vital signs [x] Documentation [x] Medication orders and management Disposition Plan: ICU Total Time Spent with Patient (Minutes): 60 History Interval history: Patient seen and examined at the bedside. Remains on the vent, more alert this am following simple commands. Still on precedex and fentanyl gtt. INDERJIT overnight Hospitalist Physical - Constitutional Vitals: Temp Pulse Resp BP Pulse Ox 98.8 F 72 21 116/66 100 06/08/21 08:00 06/08/21 11:00 06/08/21 11:00 06/08/21 11:00 06/08/21 11:00 General appearance: Present: no acute distress, obese - EENT Eyes: Present: PERRL ENT: hearing intact - Neck Neck: Present: normal ROM - Respiratory Respiratory effort: normal Respiratory: bilateral: rhonchi - Cardiovascular Rhythm: regular Heart Sounds: Present: S1 & S2 - Extremities Extremities: no ischemia, pulses intact, pulses symmetrical Extremity abnormal: edema - Peripheral Assessment Generalized Edema Type: Non-pitting Edema Degree: 2+ Capillary Refill: < 3 seconds Skin Temperature: Warm Peripheral Pulses: within normal limits - Abdominal General gastrointestinal: soft, non-distended, normal bowel sounds - Integumentary Integumentary: Present: warm, dry - Psychiatric Psychiatric: cooperative - Neurologic Neurologic: moves all extremities, other (More alert today, follwoing simple commands.) - Allied Health Allied health notes reviewed: nursing, case management HEART Score - HEART Score Troponin: Troponin T < 0.010 ng/mL (0.00-0.029) 05/23/21 09:38 Results - Labs CBC & Chem 7: 06/08/21 04:42 06/08/21 04:42 Labs: Laboratory Last Values WBC 8.7 K/mm3 (4.5-11.0) 06/08/21 04:42 RBC 3.62 M/mm3 (3.65-5.03) L 06/08/21 04:42 Hgb 10.2 gm/dl (11.8-15.2) L 06/08/21 04:42 Hct 31.9 % (35.5-45.6) L 06/08/21 04:42 MCV 88 fl (84-94) 06/08/21 04:42 MCH 28 pg (28-32) 06/08/21 04:42 MCHC 32 % (32-34) 06/08/21 04:42 RDW 16.5 % (13.2-15.2) H 06/08/21 04:42 Plt Count 502 K/mm3 (140-440) H 06/08/21 04:42 Lymph % (Auto) 11.2 % (13.4-35.0) L 05/28/21 10:05 Morrison % (Auto) 8.6 % (0.0-7.3) H 05/28/21 10:05 Eos % (Auto) 0.8 % (0.0-4.3) 05/28/21 10:05 Baso % (Auto) 0.5 % (0.0-1.8) 05/28/21 10:05 Lymph # (Auto) 1.3 K/mm3 (1.2-5.4) 05/28/21 10:05 Morrison # (Auto) 1.0 K/mm3 (0.0-0.8) H 05/28/21 10:05 Eos # (Auto) 0.1 K/mm3 (0.0-0.4) 05/28/21 10:05 Baso # (Auto) 0.1 K/mm3 (0.0-0.1) 05/28/21 10:05 Add Manual Diff Complete 05/27/21 03:18 Total Counted 100 05/27/21 03:18 Seg Neutrophils % 78.9 % (40.0-70.0) H 05/28/21 10:05 Seg Neuts % (Manual) 92.0 % (40.0-70.0) H 05/27/21 03:18 Band Neutrophils % 0 % 05/27/21 03:18 Lymphocytes % (Manual) 5.0 % (13.4-35.0) L 05/27/21 03:18 Reactive Lymphs % (Man) 0 % 05/27/21 03:18 Monocytes % (Manual) 3.0 % (0.0-7.3) 05/27/21 03:18 Eosinophils % (Manual) 0 % (0.0-4.3) 05/27/21 03:18 Basophils % (Manual) 0 % (0.0-1.8) 05/27/21 03:18 Metamyelocytes % 0 % 05/27/21 03:18 Myelocytes % 0 % 05/27/21 03:18 Promyelocytes % 0 % 05/27/21 03:18 Blast Cells % 0 % 05/27/21 03:18 Nucleated RBC % Not Reportable 05/27/21 03:18 Seg Neutrophils # 9.0 K/mm3 (1.8-7.7) H 05/28/21 10:05 Seg Neutrophils # Man 19.8 K/mm3 (1.8-7.7) H 05/27/21 03:18 Band Neutrophils # 0.0 K/mm3 05/27/21 03:18 Lymphocytes # (Manual) 1.1 K/mm3 (1.2-5.4) L 05/27/21 03:18 Abs React Lymphs (Man) 0.0 K/mm3 05/27/21 03:18 Monocytes # (Manual) 0.6 K/mm3 (0.0-0.8) 05/27/21 03:18 Eosinophils # (Manual) 0.0 K/mm3 (0.0-0.4) 05/27/21 03:18 Basophils # (Manual) 0.0 K/mm3 (0.0-0.1) 05/27/21 03:18 Metamyelocytes # 0.0 K/mm3 05/27/21 03:18 Myelocytes # 0.0 K/mm3 05/27/21 03:18 Promyelocytes # 0.0 K/mm3 05/27/21 03:18 Blast Cells # 0.0 K/mm3 05/27/21 03:18 WBC Morphology Not Reportable 05/27/21 03:18 Hypersegmented Neuts Not Reportable 05/27/21 03:18 Hyposegmented Neuts Not Reportable 05/27/21 03:18 Hypogranular Neuts Not Reportable 05/27/21 03:18 Smudge Cells Not Reportable 05/27/21 03:18 Toxic Granulation Not Reportable 05/27/21 03:18 Toxic Vacuolation Not Reportable 05/27/21 03:18 Dohle Bodies Not Reportable 05/27/21 03:18 Pelger-Huet Anomaly Not Reportable 05/27/21 03:18 Glenn Rods Not Reportable 05/27/21 03:18 Platelet Estimate Consistent w auto 05/27/21 03:18 Clumped Platelets Not Reportable 05/27/21 03:18 Plt Clumps, EDTA Not Reportable 05/27/21 03:18 Large Platelets Not Reportable 05/27/21 03:18 Giant Platelets Not Reportable 05/27/21 03:18 Platelet Satelliting Not Reportable 05/27/21 03:18 Plt Morphology Comment Not Reportable 05/27/21 03:18 RBC Morphology Normal 05/27/21 03:18 Dimorphic RBCs Not Reportable 05/27/21 03:18 Polychromasia Not Reportable 05/27/21 03:18 Hypochromasia Not Reportable 05/27/21 03:18 Poikilocytosis Not Reportable 05/27/21 03:18 Anisocytosis Not Reportable 05/27/21 03:18 Microcytosis Not Reportable 05/27/21 03:18 Macrocytosis Not Reportable 05/27/21 03:18 Spherocytes Not Reportable 05/27/21 03:18 Pappenheimer Bodies Not Reportable 05/27/21 03:18 Sickle Cells Not Reportable 05/27/21 03:18 Target Cells Not Reportable 05/27/21 03:18 Tear Drop Cells Not Reportable 05/27/21 03:18 Ovalocytes Not Reportable 05/27/21 03:18 Helmet Cells Not Reportable 05/27/21 03:18 [place] Bodies Not Reportable 05/27/21 03:18 [place] Rings Not Reportable 05/27/21 03:18 Giorgio Cells Not Reportable 05/27/21 03:18 Bite Cells Not Reportable 05/27/21 03:18 Crenated Cell Not Reportable 05/27/21 03:18 Elliptocytes Not Reportable 05/27/21 03:18 Acanthocytes (Spur) Not Reportable 05/27/21 03:18 Rouleaux Not Reportable 05/27/21 03:18 Hemoglobin C Crystals Not Reportable 05/27/21 03:18 Schistocytes Not Reportable 05/27/21 03:18 Malaria parasites Not Reportable 05/27/21 03:18 Frandy Bodies Not Reportable 05/27/21 03:18 Hem Pathologist Commnt No 05/27/21 03:18 PT 14.2 Sec. (12.2-14.9) 06/07/21 10:50 INR 0.99 (0.87-1.13) 06/07/21 10:50 APTT 36.1 Sec. (24.2-36.6) 06/03/21 Unknown Heparin Anti-Xa Level 0.34 U.I./ml (0.3-0.7) 06/07/21 10:50 ABG pH 7.406 (7.320-7.450) 06/04/21 04:00 POC ABG pCO2 51.5 mmHg (32.0-48.0) H 06/04/21 04:00 ABG pCO2 54.4 mm Hg 06/02/21 05:42 POC ABG pO2 61.7 mmHg (83-108) L 06/04/21 04:00 ABG pO2 141.2 mm Hg (80.0-90.0) H 06/02/21 05:42 POC ABG HCO3 31.6 06/04/21 04:00 ABG HCO3 30.6 mmol/L (20.0-26.0) H 06/02/21 05:42 ABG O2 Saturation 92.7 (0-100) 06/04/21 04:00 ABG O2 Content 16.6 (0.0-44) 06/02/21 05:42 POC ABG Base Excess 5.7 06/04/21 04:00 ABG Base Excess 4.1 mmol/L (-2.0-3.0) H 06/02/21 05:42 ABG Hemoglobin 12.7 (12.0-17.5) 06/04/21 04:00 ABG Oxyhemoglobin 90.9 (94-98) L 06/04/21 04:00 ABG Carboxyhemoglobin 1.5 % (0.0-5.0) 06/02/21 05:42 ABG Methemoglobin 0.3 (0.0-1.5) 06/04/21 04:00 ABG Sodium 137.9 mmol/L (136.0-145.0) 05/24/21 03:44 ABG Potassium 5.6 mmol/L (3.40-4.50) H 05/24/21 03:44 ABG Chloride 105.0 mmol/L (98-107) 05/24/21 03:44 ABG Glucose 53 mg/dL (65-95) L 05/24/21 03:44 Oxyhemoglobin 96.7 % (95.0-99.0) 06/02/21 05:42 Carboxyhemoglobin 1.6 (0.5-1.5) H 06/04/21 04:00 FiO2 50 % 06/02/21 05:42 FiO2 % 35.0 06/04/21 04:00 Sodium 143 mmol/L (137-145) 06/08/21 04:42 Potassium 3.7 mmol/L (3.6-5.0) 06/08/21 04:42 Chloride 109.9 mmol/L (98-107) H 06/08/21 04:42 Carbon Dioxide 26 mmol/L (22-30) 06/08/21 04:42 Anion Gap 11 mmol/L 06/08/21 04:42 BUN 11 mg/dL (9-20) 06/08/21 04:42 Creatinine 0.5 mg/dL (0.8-1.3) L 06/08/21 04:42 Estimated GFR > 60 ml/min 06/08/21 04:42 BUN/Creatinine Ratio 22 % 06/08/21 04:42 Glucose 108 mg/dL (75-100) H 06/08/21 04:42 POC Glucose 113 mg/dL (70-105) H 06/08/21 05:15 Lactic Acid 2.10 mmol/L (0.7-2.0) H* 05/28/21 10:05 Calcium 8.2 mg/dL (8.4-10.2) L 06/08/21 04:42 Phosphorus 2.50 mg/dL (2.5-4.5) 06/08/21 04:42 Magnesium 1.60 mg/dL (1.7-2.3) L 06/08/21 04:42 Total Bilirubin 2.90 mg/dL (0.1-1.2) H 06/02/21 20:00 Direct Bilirubin 2.4 mg/dL (0-0.2) H 06/02/21 07:41 Indirect Bilirubin 0.9 mg/dL 06/02/21 07:41 AST 53 units/L (5-40) H 06/02/21 20:00 ALT 30 units/L (7-56) 06/02/21 20:00 Alkaline Phosphatase 115 units/L (35-129) 06/02/21 20:00 Total Creatine Kinase 556 units/L (55-170) H 05/24/21 09:35 Troponin T < 0.010 ng/mL (0.00-0.029) 05/23/21 09:38 C-Reactive Protein 34.80 mg/dL (0.00-1.30) H 05/28/21 10:05 NT-Pro-B Natriuret Pep 6058 pg/mL (0-450) H 05/23/21 09:38 Total Protein 6.2 g/dL (6.3-8.2) L 06/02/21 20:00 Albumin 1.8 g/dL (3.9-5) L 06/02/21 20:00 Albumin/Globulin Ratio 0.4 % 06/02/21 20:00 Triglycerides 142 mg/dL (2-149) 06/07/21 Unknown Procalcitonin 12.51 ng/mL (<0.15) 05/28/21 10:05 Arterial Blood Glucose 53 mg/dL (65-95) L 05/24/21 03:44 Arterial Blood Ionized Calcium 4.6 mg/dL (4.6-5.3) 05/24/21 03:44 Urine Color Sherri (Yellow) 05/28/21 12:20 Urine Turbidity Clear (Clear) 05/28/21 12:20 Urine pH 6.0 (5.0-7.0) 05/28/21 12:20 Ur Specific [place] 1.017 (1.003-1.030) 05/28/21 12:20 Urine Protein 30 mg/dl mg/dL (Negative) 05/28/21 12:20 Urine Glucose (UA) Neg mg/dL (Negative) 05/28/21 12:20 Urine Ketones Neg mg/dL (Negative) 05/28/21 12:20 Urine Blood Mod (Negative) 05/28/21 12:20 Urine Nitrite Neg (Negative) 05/28/21 12:20 Urine Bilirubin Mod (Negative) 05/28/21 12:20 Urine Ictotest Positive (Negative) 05/28/21 12:20 Urine Urobilinogen 4.0 mg/dL (<2.0) 05/28/21 12:20 Ur Leukocyte Esterase Neg (Negative) 05/28/21 12:20 Urine WBC (Auto) 3.0 /HPF (0.0-6.0) 05/28/21 12:20 Urine RBC (Auto) 4.0 /HPF (0.0-6.0) 05/28/21 12:20 U Epithel Cells (Auto) < 1.0 /HPF (0-13.0) 05/28/21 12:20 Urine Bacteria (Auto) 1+ /HPF (Negative) 05/28/21 12:20 Urine Mucus Few /HPF 05/28/21 12:20 Urine Yeast (Budding) 1+ /HPF 05/24/21 Unknown Salicylates < 0.3 mg/dL (2.8-20.0) L 05/23/21 09:38 Urine Opiates Screen Negative 05/23/21 09:41 Urine Methadone Screen Negative 05/23/21 09:41 Acetaminophen 5.0 ug/mL (10.0-30.0) L 05/23/21 09:38 Ur Barbiturates Screen Negative 05/23/21 09:41 Ur Phencyclidine Scrn Negative 05/23/21 09:41 Ur Amphetamines Screen Positive 05/23/21 09:41 U Benzodiazepines Scrn Negative 05/23/21 09:41 Urine Cocaine Screen Negative 05/23/21 09:41 U Marijuana (THC) Screen Negative 05/23/21 09:41 Drugs of Abuse Note Disclamer 05/23/21 09:41 Coronavirus (PCR) Negative (Negative) 05/26/21 08:14 Hepatitis A IgM Ab Non-reactive (NonReactive) 05/27/21 16:00 Hep Bs Antigen Non-reactive (Negative) 05/27/21 16:00 Hep B Core IgM Ab Non-reactive (NonReactive) 05/27/21 16:00 Hepatitis C Antibody Non-reactive (NonReactive) 05/27/21 16:00 F[place]ardo/IV: Voiding Method Indwelling Catheter Active Medications - Current Medications Current Medications: Generic Name Dose Route Start Last Admin Trade Name Freq PRN Reason Stop Dose Admin Acetaminophen 650 mg 05/23/21 11:43 05/31/21 03:22 Acetaminophen 650 Mg Rect Supp PA 650 mg Q6H PRN Administration Pain MILD(1-3)/Fever >100.5/EPSTEIN Lipase/Protease/Amylase 1 each 05/29/21 08:45 Lipase 10,500/Protease 25,000/Amylase 43,750 (Units) Dr Mitchell FEEDTUBE PRN PRN For Clogged Feeding Tube Apixaban 10 mg 06/07/21 15:00 06/08/21 09:03 Apixaban 5 Mg Tab PO 06/13/21 22:01 10 mg Q12HR MARK Administration Protocol Apixaban 5 mg 06/14/21 10:00 Apixaban 5 Mg Tab PO Q12HR MARK Protocol Carvedilol 6.25 mg 06/07/21 12:00 06/08/21 09:02 Carvedilol 6.25 Mg Tab FEEDTUBE 6.25 mg BID MARK Administration Dextrose 0 ml 05/31/21 10:47 Dextrose 10% *Hypoglycemia IV PRN PRN Hypoglycemia Famotidine 40 mg 06/02/21 22:00 06/07/21 22:30 Famotidine 20 Mg Tab FEEDTUBE 40 mg QHS MARK Administration Fentanyl 50 mcg 06/01/21 12:29 Fentanyl 100 Mcg/2 Ml Inj IV Q10MIN PRN ANALGESIA Furosemide 20 mg 06/07/21 12:00 06/08/21 09:03 Furosemide 20 Mg Tab FEEDTUBE 20 mg BID MRAK Administration Haloperidol Lactate 5 mg 05/30/21 12:18 06/01/21 09:27 Haloperidol Lactate 5 Mg/1 Ml Inj IV 5 mg Q6H PRN Administration Agitation Hydrophilic Ointment 1 applic 06/01/21 12:30 Lip Therapy Vaseline TP Q2HR PRN Dry Lips Dexmedetomidine HCl 400 mcg/ 104 mls @ 5.307 mls/hr 05/24/21 05:00 06/08/21 06:15 Sodium Chloride IV 1.2 mcg/kg/hr TITRATE MARK 31.842 mls/hr Administration Protocol 0.2 MCG/KG/HR Fentanyl Citrate 2,000 mcg in 100 mls @ 5.103 mls/hr 06/01/21 13:00 06/08/21 11:24 Fentanyl Drip Premix IV 0 mcg/kg/hr TITR MARK 0 mls/hr Titration Protocol 1 MCG/KG/HR Ampicillin Sodium/Sulbactam Sodium 3 gm in 100 mls @ 200 mls/hr 06/03/21 11:00 06/08/21 04:37 Unasyn/Ns 3 Gm/100 Ml IV 06/10/21 05:29 200 mls/hr Q6H MARK Administration Protocol Magnesium Sulfate 4 gm in 100 mls @ 25 mls/hr 06/08/21 10:00 06/08/21 09:09 Magnesium Sulfate 4gm/100ml IV 06/08/21 13:59 25 mls/hr ONCE ONE Administration Lorazepam 2 mg 05/31/21 11:00 06/08/21 09:02 Lorazepam 2 Mg/Ml Vial IV 2 mg Q4H PRN Administration Agitation Multi-Ingred Cream/Lotion/Oil/Oint 1 applic 06/01/21 12:30 Mineral Oil/Petrolatum, White Ophth Oint 3.5 Gm OU Q4HR PRN Dry Eye(s) Ondansetron HCl 4 mg 05/23/21 11:43 Ondansetron 4 Mg/2 Ml Inj IV Q8H PRN Nausea And Vomiting Quetiapine Fumarate 75 mg 06/07/21 22:00 06/08/21 09:03 Quetiapine 25 Mg Tab PO 75 mg BID MARK Administration Senna/Docusate Sodium 1 tab 06/01/21 22:00 06/08/21 09:04 Sennosides/Docusate Sodium 8.6/50 Mg Tab FEEDTUBE 1 tab BID MARK Administration Simple Syrup 15 ml 05/29/21 08:45 Simple Syrup 15 Ml FEEDTUBE PRN PRN Hypoglycemia Simple Syrup 30 ml 05/29/21 08:45 Simple Syrup 15 Ml FEEDTUBE PRN PRN Hypoglycemia Sodium Bicarbonate 325 mg 05/29/21 08:45 Sodium Bicarbonate 325 Mg Tab FEEDTUBE PRN PRN For Clogged Feeding Tube Sodium Chloride 10 ml 05/23/21 22:00 06/08/21 09:04 Sodium Chloride 0.9% 10 Ml Flush Syringe IV 10 ml BID AMRK Administration Sodium Chloride 10 ml 05/23/21 11:43 Sodium Chloride 0.9% 10 Ml Flush Syringe IV PRN PRN LINE FLUSH Sodium Chloride 10 ml 05/31/21 09:50 06/01/21 12:32 Sodium Chloride 0.9% 50 Ml Ivpb IV 10 ml PRN PRN Administration FLUSH Vitamin B Complex/Folic Acid 1 each 05/30/21 10:00 06/08/21 09:03 Folbee Plus Cz (Folic Acid/Vit Bcomp&C/Cu/Znox) PO 1 each QDAY MARK Administration Nutrition/Malnutrition Assess - Dietary Evaluation Nutrition/Malnutrition Findings: Nutrition Notes Start: 05/28/21 12:1 6 Freq: Status: Active Protocol: Document 06/07/21 15:07 YURI (Rec: 06/07/21 15:17 YURI [id number]) Nutrition Notes Initial or Follow up Reassessment Current Diagnosis Heart Failure,Respiratory Failure Other Pertinent Diagnosis Acute encephalopathy, Overdose , Methamphetamine dependence Current Diet TF - Vital HP at 70ml/hr Labs/Tests Phos 2.3 Pertinent Medications Lasix, 15mmol KPhos x 1 dose, Vit B complex/Folic acid Height 6 ft Weight 102.058 kg [place] Body Weight (kg) 80.90 BMI 30.5 Weight Status Obese Subjective/Other Information Pt remains on vent support. Per RN, pt tolerating TF at goal rate and currently receiving 200ml water flush q4h. PEG and trach placed on 06/04. Percent of energy/protein needs met: 71% energy 91% pro Burn Absent Trauma Absent #1 Nutrition Diagnosis Inadequate oral intake Diagnosis Progress(for reassessment Continues documentation) Is patient on ventilator? Yes Is Patient Ambulatory and/or Out of Bed No REE-([place] Jeor-confined to bed) [phone] Calculation Used for Recommendations 65-70% energy needs Additional Notes Energy needs: 0147-3135 kcal/ day Pro needs 2g/kg IBW: 162g/day Fluid needs 1ml/kcal Nutrition Intervention Nutrition Support: Continue Vital HP at 70 ml/hr. Continue 200ml water flush q4h until hypernatremia resolves; then provide 50ml water flush q4h. Kcal 1,680 Protein (gm) 147 Carbohydrates (gm) 188 Fat (gm) 39 Fluid (mL) 1,404 Fiber (gm) 0 Goal #1 TF tolerance Goal #2 TF to meet 65-70% energy and at least 75% pro needs Follow-Up By: 06/11/21 Additional Comments F/U: Vent status, Na lab/water flush <LUZ LEE - Last Filed: 06/08/21 18:24> Assessment and Plan Assessment and plan: I saw and evaluated the patient. I agree with the findings and the plan of care as documented in the Nurse Practitioner's~note, with the following corrections and additions. Hospitalist Physical - Constitutional Vitals: Temp Pulse Resp BP Pulse Ox 99 F 76 20 113/73 100 06/08/21 16:00 06/08/21 16:08 06/08/21 16:08 06/08/21 16:03 06/08/21 16:08 HEART Score - HEART Score Troponin: Troponin T < 0.010 ng/mL (0.00-0.029) 05/23/21 09:38 Results - Labs CBC & Chem 7: 06/08/21 04:42 06/08/21 04:42 Labs: Laboratory Last Values WBC 8.7 K/mm3 (4.5-11.0) 06/08/21 04:42 RBC 3.62 M/mm3 (3.65-5.03) L 06/08/21 04:42 Hgb 10.2 gm/dl (11.8-15.2) L 06/08/21 04:42 Hct 31.9 % (35.5-45.6) L 06/08/21 04:42 MCV 88 fl (84-94) 06/08/21 04:42 MCH 28 pg (28-32) 06/08/21 04:42 MCHC 32 % (32-34) 06/08/21 04:42 RDW 16.5 % (13.2-15.2) H 06/08/21 04:42 Plt Count 502 K/mm3 (140-440) H 06/08/21 04:42 Lymph % (Auto) 11.2 % (13.4-35.0) L 05/28/21 10:05 Morrison % (Auto) 8.6 % (0.0-7.3) H 05/28/21 10:05 Eos % (Auto) 0.8 % (0.0-4.3) 05/28/21 10:05 Baso % (Auto) 0.5 % (0.0-1.8) 05/28/21 10:05 Lymph # (Auto) 1.3 K/mm3 (1.2-5.4) 05/28/21 10:05 Morrison # (Auto) 1.0 K/mm3 (0.0-0.8) H 05/28/21 10:05 Eos # (Auto) 0.1 K/mm3 (0.0-0.4) 05/28/21 10:05 Baso # (Auto) 0.1 K/mm3 (0.0-0.1) 05/28/21 10:05 Add Manual Diff Complete 05/27/21 03:18 Total Counted 100 05/27/21 03:18 Seg Neutrophils % 78.9 % (40.0-70.0) H 05/28/21 10:05 Seg Neuts % (Manual) 92.0 % (40.0-70.0) H 05/27/21 03:18 Band Neutrophils % 0 % 05/27/21 03:18 Lymphocytes % (Manual) 5.0 % (13.4-35.0) L 05/27/21 03:18 Reactive Lymphs % (Man) 0 % 05/27/21 03:18 Monocytes % (Manual) 3.0 % (0.0-7.3) 05/27/21 03:18 Eosinophils % (Manual) 0 % (0.0-4.3) 05/27/21 03:18 Basophils % (Manual) 0 % (0.0-1.8) 05/27/21 03:18 Metamyelocytes % 0 % 05/27/21 03:18 Myelocytes % 0 % 05/27/21 03:18 Promyelocytes % 0 % 05/27/21 03:18 Blast Cells % 0 % 05/27/21 03:18 Nucleated RBC % Not Reportable 05/27/21 03:18 Seg Neutrophils # 9.0 K/mm3 (1.8-7.7) H 05/28/21 10:05 Seg Neutrophils # Man 19.8 K/mm3 (1.8-7.7) H 05/27/21 03:18 Band Neutrophils # 0.0 K/mm3 05/27/21 03:18 Lymphocytes # (Manual) 1.1 K/mm3 (1.2-5.4) L 05/27/21 03:18 Abs React Lymphs (Man) 0.0 K/mm3 05/27/21 03:18 Monocytes # (Manual) 0.6 K/mm3 (0.0-0.8) 05/27/21 03:18 Eosinophils # (Manual) 0.0 K/mm3 (0.0-0.4) 05/27/21 03:18 Basophils # (Manual) 0.0 K/mm3 (0.0-0.1) 05/27/21 03:18 Metamyelocytes # 0.0 K/mm3 05/27/21 03:18 Myelocytes # 0.0 K/mm3 05/27/21 03:18 Promyelocytes # 0.0 K/mm3 05/27/21 03:18 Blast Cells # 0.0 K/mm3 05/27/21 03:18 WBC Morphology Not Reportable 05/27/21 03:18 Hypersegmented Neuts Not Reportable 05/27/21 03:18 Hyposegmented Neuts Not Reportable 05/27/21 03:18 Hypogranular Neuts Not Reportable 05/27/21 03:18 Smudge Cells Not Reportable 05/27/21 03:18 Toxic Granulation Not Reportable 05/27/21 03:18 Toxic Vacuolation Not Reportable 05/27/21 03:18 Dohle Bodies Not Reportable 05/27/21 03:18 Pelger-Huet Anomaly Not Reportable 05/27/21 03:18 Glenn Rods Not Reportable 05/27/21 03:18 Platelet Estimate Consistent w auto 05/27/21 03:18 Clumped Platelets Not Reportable 05/27/21 03:18 Plt Clumps, EDTA Not Reportable 05/27/21 03:18 Large Platelets Not Reportable 05/27/21 03:18 Giant Platelets Not Reportable 05/27/21 03:18 Platelet Satelliting Not Reportable 05/27/21 03:18 Plt Morphology Comment Not Reportable 05/27/21 03:18 RBC Morphology Normal 05/27/21 03:18 Dimorphic RBCs Not Reportable 05/27/21 03:18 Polychromasia Not Reportable 05/27/21 03:18 Hypochromasia Not Reportable 05/27/21 03:18 Poikilocytosis Not Reportable 05/27/21 03:18 Anisocytosis Not Reportable 05/27/21 03:18 Microcytosis Not Reportable 05/27/21 03:18 Macrocytosis Not Reportable 05/27/21 03:18 Spherocytes Not Reportable 05/27/21 03:18 Pappenheimer Bodies Not Reportable 05/27/21 03:18 Sickle Cells Not Reportable 05/27/21 03:18 Target Cells Not Reportable 05/27/21 03:18 Tear Drop Cells Not Reportable 05/27/21 03:18 Ovalocytes Not Reportable 05/27/21 03:18 Helmet Cells Not Reportable 05/27/21 03:18 [place] Bodies Not Reportable 05/27/21 03:18 [place] Rings Not Reportable 05/27/21 03:18 [place] Cells Not Reportable 05/27/21 03:18 Bite Cells Not Reportable 05/27/21 03:18 Crenated Cell Not Reportable 05/27/21 03:18 Elliptocytes Not Reportable 05/27/21 03:18 Acanthocytes (Spur) Not Reportable 05/27/21 03:18 Rouleaux Not Reportable 05/27/21 03:18 Hemoglobin C Crystals Not Reportable 05/27/21 03:18 Schistocytes Not Reportable 05/27/21 03:18 Malaria parasites Not Reportable 05/27/21 03:18 Frandy Bodies Not Reportable 05/27/21 03:18 Hem Pathologist Commnt No 05/27/21 03:18 PT 14.2 Sec. (12.2-14.9) 06/07/21 10:50 INR 0.99 (0.87-1.13) 06/07/21 10:50 APTT 36.1 Sec. (24.2-36.6) 06/03/21 Unknown Heparin Anti-Xa Level 0.34 U.I./ml (0.3-0.7) 06/07/21 10:50 ABG pH 7.406 (7.320-7.450) 06/04/21 04:00 POC ABG pCO2 51.5 mmHg (32.0-48.0) H 06/04/21 04:00 ABG pCO2 54.4 mm Hg 06/02/21 05:42 POC ABG pO2 61.7 mmHg (83-108) L 06/04/21 04:00 ABG pO2 141.2 mm Hg (80.0-90.0) H 06/02/21 05:42 POC ABG HCO3 31.6 06/04/21 04:00 ABG HCO3 30.6 mmol/L (20.0-26.0) H 06/02/21 05:42 ABG O2 Saturation 92.7 (0-100) 06/04/21 04:00 ABG O2 Content 16.6 (0.0-44) 06/02/21 05:42 POC ABG Base Excess 5.7 06/04/21 04:00 ABG Base Excess 4.1 mmol/L (-2.0-3.0) H 06/02/21 05:42 ABG Hemoglobin 12.7 (12.0-17.5) 06/04/21 04:00 ABG Oxyhemoglobin 90.9 (94-98) L 06/04/21 04:00 ABG Carboxyhemoglobin 1.5 % (0.0-5.0) 06/02/21 05:42 ABG Methemoglobin 0.3 (0.0-1.5) 06/04/21 04:00 ABG Sodium 137.9 mmol/L (136.0-145.0) 05/24/21 03:44 ABG Potassium 5.6 mmol/L (3.40-4.50) H 05/24/21 03:44 ABG Chloride 105.0 mmol/L (98-107) 05/24/21 03:44 ABG Glucose 53 mg/dL (65-95) L 05/24/21 03:44 Oxyhemoglobin 96.7 % (95.0-99.0) 06/02/21 05:42 Carboxyhemoglobin 1.6 (0.5-1.5) H 06/04/21 04:00 FiO2 50 % 06/02/21 05:42 FiO2 % 35.0 06/04/21 04:00 Sodium 143 mmol/L (137-145) 06/08/21 04:42 Potassium 3.7 mmol/L (3.6-5.0) 06/08/21 04:42 Chloride 109.9 mmol/L (98-107) H 06/08/21 04:42 Carbon Dioxide 26 mmol/L (22-30) 06/08/21 04:42 Anion Gap 11 mmol/L 06/08/21 04:42 BUN 11 mg/dL (9-20) 06/08/21 04:42 Creatinine 0.5 mg/dL (0.8-1.3) L 06/08/21 04:42 Estimated GFR > 60 ml/min 06/08/21 04:42 BUN/Creatinine Ratio 22 % 06/08/21 04:42 Glucose 108 mg/dL (75-100) H 06/08/21 04:42 POC Glucose 118 mg/dL (70-105) H 06/08/21 17:58 Lactic Acid 2.10 mmol/L (0.7-2.0) H* 05/28/21 10:05 Calcium 8.2 mg/dL (8.4-10.2) L 06/08/21 04:42 Phosphorus 2.50 mg/dL (2.5-4.5) 06/08/21 04:42 Magnesium 1.60 mg/dL (1.7-2.3) L 06/08/21 04:42 Total Bilirubin 2.90 mg/dL (0.1-1.2) H 06/02/21 20:00 Direct Bilirubin 2.4 mg/dL (0-0.2) H 06/02/21 07:41 Indirect Bilirubin 0.9 mg/dL 06/02/21 07:41 AST 53 units/L (5-40) H 06/02/21 20:00 ALT 30 units/L (7-56) 06/02/21 20:00 Alkaline Phosphatase 115 units/L (35-129) 06/02/21 20:00 Total Creatine Kinase 556 units/L (55-170) H 05/24/21 09:35 Troponin T < 0.010 ng/mL (0.00-0.029) 05/23/21 09:38 C-Reactive Protein 34.80 mg/dL (0.00-1.30) H 05/28/21 10:05 NT-Pro-B Natriuret Pep 6058 pg/mL (0-450) H 05/23/21 09:38 Total Protein 6.2 g/dL (6.3-8.2) L 06/02/21 20:00 Albumin 1.8 g/dL (3.9-5) L 06/02/21 20:00 Albumin/Globulin Ratio 0.4 % 06/02/21 20:00 Triglycerides 142 mg/dL (2-149) 06/07/21 Unknown Procalcitonin 0.25 ng/mL (<0.15) 06/08/21 04:42 Arterial Blood Glucose 53 mg/dL (65-95) L 05/24/21 03:44 Arterial Blood Ionized Calcium 4.6 mg/dL (4.6-5.3) 05/24/21 03:44 Urine Color Sherri (Yellow) 05/28/21 12:20 Urine Turbidity Clear (Clear) 05/28/21 12:20 Urine pH 6.0 (5.0-7.0) 05/28/21 12:20 Ur Specific [place] 1.017 (1.003-1.030) 05/28/21 12:20 Urine Protein 30 mg/dl mg/dL (Negative) 05/28/21 12:20 Urine Glucose (UA) Neg mg/dL (Negative) 05/28/21 12:20 Urine Ketones Neg mg/dL (Negative) 05/28/21 12:20 Urine Blood Mod (Negative) 05/28/21 12:20 Urine Nitrite Neg (Negative) 05/28/21 12:20 Urine Bilirubin Mod (Negative) 05/28/21 12:20 Urine Ictotest Positive (Negative) 05/28/21 12:20 Urine Urobilinogen 4.0 mg/dL (<2.0) 05/28/21 12:20 Ur Leukocyte Esterase Neg (Negative) 05/28/21 12:20 Urine WBC (Auto) 3.0 /HPF (0.0-6.0) 05/28/21 12:20 Urine RBC (Auto) 4.0 /HPF (0.0-6.0) 05/28/21 12:20 U Epithel Cells (Auto) < 1.0 /HPF (0-13.0) 05/28/21 12:20 Urine Bacteria (Auto) 1+ /HPF (Negative) 05/28/21 12:20 Urine Mucus Few /HPF 05/28/21 12:20 Urine Yeast (Budding) 1+ /HPF 05/24/21 Unknown Salicylates < 0.3 mg/dL (2.8-20.0) L 05/23/21 09:38 Urine Opiates Screen Negative 05/23/21 09:41 Urine Methadone Screen Negative 05/23/21 09:41 Acetaminophen 5.0 ug/mL (10.0-30.0) L 05/23/21 09:38 Ur Barbiturates Screen Negative 05/23/21 09:41 Ur Phencyclidine Scrn Negative 05/23/21 09:41 Ur Amphetamines Screen Positive 05/23/21 09:41 U Benzodiazepines Scrn Negative 05/23/21 09:41 Urine Cocaine Screen Negative 05/23/21 09:41 U Marijuana (THC) Screen Negative 05/23/21 09:41 Drugs of Abuse Note Disclamer 05/23/21 09:41 Coronavirus (PCR) Negative (Negative) 05/26/21 08:14 Hepatitis A IgM Ab Non-reactive (NonReactive) 05/27/21 16:00 Hep Bs Antigen Non-reactive (Negative) 05/27/21 16:00 Hep B Core IgM Ab Non-reactive (NonReactive) 05/27/21 16:00 Hepatitis C Antibody Non-reactive (NonReactive) 05/27/21 16:00 [place]/IV: Voiding Method Indwelling Catheter Active Medications - Current Medications Current Medications: Generic Name Dose Route Start Last Admin Trade Name Freq PRN Reason Stop Dose Admin Acetaminophen 650 mg 05/23/21 11:43 05/31/21 03:22 Acetaminophen 650 Mg Rect Supp PA 650 mg Q6H PRN Administration Pain MILD(1-3)/Fever >100.5/EPSTEIN Lipase/Protease/Amylase 1 each 05/29/21 08:45 Lipase 10,500/Protease 25,000/Amylase 43,750 (Units) Dr Cap FEEDTUBE PRN PRN For Clogged Feeding Tube Apixaban 10 mg 06/07/21 15:00 06/08/21 09:03 Apixaban 5 Mg Tab PO 06/13/21 22:01 10 mg Q12HR MARK Administration Protocol Apixaban 5 mg 06/14/21 10:00 Apixaban 5 Mg Tab PO Q12HR MARK Protocol Carvedilol 6.25 mg 06/07/21 12:00 06/08/21 09:02 Carvedilol 6.25 Mg Tab FEEDTUBE 6.25 mg BID MARK Administration Dextrose 0 ml 05/31/21 10:47 Dextrose 10% *Hypoglycemia IV PRN PRN Hypoglycemia Famotidine 40 mg 06/02/21 22:00 06/07/21 22:30 Famotidine 20 Mg Tab FEEDTUBE 40 mg QHS MARK Administration Fentanyl 50 mcg 06/01/21 12:29 Fentanyl 100 Mcg/2 Ml Inj IV Q10MIN PRN ANALGESIA Furosemide 20 mg 06/07/21 12:00 06/08/21 09:03 Furosemide 20 Mg Tab FEEDTUBE 20 mg BID MARK Administration Haloperidol Lactate 5 mg 05/30/21 12:18 06/08/21 13:46 Haloperidol Lactate 5 Mg/1 Ml Inj IV 5 mg Q6H PRN Administration Agitation Hydrophilic Ointment 1 applic 06/01/21 12:30 Lip Therapy Vaseline TP Q2HR PRN Dry Lips Dexmedetomidine HCl 400 mcg/ 104 mls @ 5.307 mls/hr 05/24/21 05:00 06/08/21 15:48 Sodium Chloride IV 1.2 mcg/kg/hr TITRATE MARK 31.842 mls/hr Administration Protocol 0.2 MCG/KG/HR Fentanyl Citrate 2,000 mcg in 100 mls @ 5.103 mls/hr 06/01/21 13:00 06/08/21 11:24 Fentanyl Drip Premix IV 0 mcg/kg/hr TITR MARK 0 mls/hr Titration Protocol 1 MCG/KG/HR Ampicillin Sodium/Sulbactam Sodium 3 gm in 100 mls @ 200 mls/hr 06/03/21 11:00 06/08/21 11:50 Unasyn/Ns 3 Gm/100 Ml IV 06/10/21 05:29 Infused Q6H MARK Infusion Protocol Lorazepam 2 mg 05/31/21 11:00 06/08/21 13:42 Lorazepam 2 Mg/Ml Vial IV 2 mg Q4H PRN Administration Agitation Multi-Ingred Cream/Lotion/Oil/Oint 1 applic 06/01/21 12:30 Mineral Oil/Petrolatum, White Ophth Oint 3.5 Gm OU Q4HR PRN Dry Eye(s) Ondansetron HCl 4 mg 05/23/21 11:43 Ondansetron 4 Mg/2 Ml Inj IV Q8H PRN Nausea And Vomiting Quetiapine Fumarate 75 mg 06/07/21 22:00 06/08/21 09:03 Quetiapine 25 Mg Tab PO 75 mg BID MARK Administration Senna/Docusate Sodium 1 tab 06/01/21 22:00 06/08/21 09:04 Sennosides/Docusate Sodium 8.6/50 Mg Tab FEEDTUBE 1 tab BID MARK Administration Simple Syrup 15 ml 05/29/21 08:45 Simple Syrup 15 Ml FEEDTUBE PRN PRN Hypoglycemia Simple Syrup 30 ml 05/29/21 08:45 Simple Syrup 15 Ml FEEDTUBE PRN PRN Hypoglycemia Sodium Bicarbonate 325 mg 05/29/21 08:45 Sodium Bicarbonate 325 Mg Tab FEEDTUBE PRN PRN For Clogged Feeding Tube Sodium Chloride 10 ml 05/23/21 22:00 06/08/21 09:04 Sodium Chloride 0.9% 10 Ml Flush Syringe IV 10 ml BID MARK Administration Sodium Chloride 10 ml 05/23/21 11:43 Sodium Chloride 0.9% 10 Ml Flush Syringe IV PRN PRN LINE FLUSH Sodium Chloride 10 ml 05/31/21 09:50 06/01/21 12:32 Sodium Chloride 0.9% 50 Ml Ivpb IV 10 ml PRN PRN Administration FLUSH Vitamin B Complex/Folic Acid 1 each 05/30/21 10:00 06/08/21 09:03 Folbee Plus Cz (Folic Acid/Vit Bcomp&C/Cu/Znox) PO 1 each QDAY MARK Administration Nutrition/Malnutrition Assess - Dietary Evaluation Nutrition/Malnutrition Findings: Nutrition Notes Start: 05/28/21 12:16 Freq: Status: Active Protocol: Document 06/07/21 15:07 YURI (Rec: 06/07/21 15:17 YURI [id number]) Nutrition Notes Initial or Follow up Reassessment Current Diagnosis Heart Failure,Respiratory Failure Other Pertinent Diagnosis Acute encephalopathy, Overdose , Methamphetamine dependence Current Diet TF - Vital HP at 70ml/hr Labs/Tests Phos 2.3 Pertinent Medications Lasix, 15mmol KPhos x 1 dose, Vit B complex/Folic acid Height 6 ft Weight 102.058 kg [place] Body Weight (kg) 80.90 BMI 30.5 Weight Status Obese Subjective/Other Information Pt remains on vent support. Per RN, pt tolerating TF at goal rate and currently receiving 200ml water flush q4h. PEG and trach placed on 06/04. Percent of energy/protein needs met: 71% energy 91% pro Burn Absent Trauma Absent #1 Nutrition Diagnosis Inadequate oral intake Diagnosis Progress(for reassessment Continues documentation) Is patient on ventilator? Yes Is Patient Ambulatory and/or Out of Bed No REE-([facility]-confined to bed) [phone] Calculation Used for Recommendations 65-70% energy needs Additional Notes Energy needs: 2231-2259 kcal/ day Pro needs 2g/kg IBW: 162g/day Fluid needs 1ml/kcal Nutrition Intervention Nutrition Support: Continue Vital HP at 70 ml/hr. Continue 200ml water flush q4h until hypernatremia resolves; then provide 50ml water flush q4h. Kcal 1,680 Protein (gm) 147 Carbohydrates (gm) 188 Fat (gm) 39 Fluid (mL) 1,404 Fiber (gm) 0 Goal #1 TF tolerance Goal #2 TF to meet 65-70% energy and at least 75% pro needs Follow-Up By: 06/11/21 Additional Comments F/U: Vent status, Na lab/water flush
--- NOTE | 2021-06-08 12:31 | Progress Note ---
Assessment and Plan Patient is a 40-year-old male with a past medical history of HFrEF (EF 15%) and methamphetamine dependence who was brought to the ED after being found unresponsive on 05/13/2021. Acute hypoxic respiratory failure-pulmonology following Drug overdose Acute on chronic HFrEF Sepsis Bilateral pneumonia DVT BRYNN-Nephrology following Rhabdomyolysis Hypernatremia Echo 05/25/2021-EF 20 to 25%. Severe global hypokinesis of left ventricle. Left ventricle is moderately dilated. Doppler flow suggests impaired LV relaxation. Moderate mitral regurgitation. No pericardial effusion Cardiac cath 08/04/2020-Angiographically normal coronary arteries. This is indicative of a nonischemic cardiomyopathy. Mildly elevated biventricular filling pressures with normal cardiac index TTE, complete 08/02/20:LVEF is 18%,Severe global LV hypokinesis. Normal LV diastolic function. LA mildly dilated. Moderate mitral regurgitation with an eccentric MR jet(s),No previous echocardiogram for comparison. Outpatient medications: Coreg 6.25 mg p.o. twice daily, Lasix 40 mg p.o. daily, lisinopril 5 mg p.o. daily Plan: Continue to hold RAMYA and ARB due low BP Agree with resuming Coreg 6.25 mg p.o. twice daily, initiating Lasix 20 mg p.o. p.o., and stopping midodrine 5 mg p.o. 3 times daily If patient tolerates changes may increase Lasix to 40 p.o. twice daily Patient seen in conjunction with Dr. Meyers who agrees with this plan of care - Patient Problems (1) Acute on chronic HFrEF (heart failure with reduced ejection fraction) Current Visit: Yes Status: Acute (2) PNA (pneumonia) Current Visit: Yes Status: Acute (3) Acute encephalopathy Current Visit: Yes Status: Acute (4) Acute respiratory failure Current Visit: Yes Status: Acute Qualifiers: Respiratory failure complication: hypoxia Qualified Code(s): J96.01 - Acute respiratory failure with hypoxia (5) Overdose by ingestion Current Visit: Yes Status: Acute Subjective Date of service: 06/08/21 Principal diagnosis: Overdose Interval history: Patient s/p trach and PEG. Awake and off sedation Sinus 80s on monitor Objective Vital Signs Temp Pulse Pulse Resp BP Pulse Ox Pulse Ox 06/08/21 12:12 94 H 102/71 100 06/08/21 11:00 72 21 116/66 100 06/08/21 10:30 82 15 119/70 100 06/08/21 10:00 77 18 120/69 100 06/08/21 09:30 78 23 111/71 100 06/08/21 09:02 100 H 123/92 06/08/21 09:00 103 H 12 111/48 100 06/08/21 08:37 100 06/08/21 08:35 61 111/48 100 06/08/21 08:30 112 H 19 111/48 100 06/08/21 08:00 98.8 F 98 H 9 L 102/72 100 06/08/21 07:30 70 16 108/64 98 06/08/21 07:00 110 H 20 98/55 100 06/08/21 06:30 72 16 98/55 98 06/08/21 06:00 73 15 99/56 98 06/08/21 05:30 78 13 95/59 99 06/08/21 05:00 69 18 100/56 99 06/08/21 04:38 100 06/08/21 04:30 72 13 100/61 100 06/08/21 04:17 75 106/64 100 06/08/21 04:00 98.2 F 72 73 14 106/64 100 06/08/21 03:30 79 16 102/58 100 06/08/21 03:00 92 H 9 L 103/56 100 06/08/21 02:30 85 10 L 103/56 100 06/08/21 02:00 88 11 L 112/64 100 06/08/21 01:30 110 H 18 120/78 100 06/08/21 01:00 117 H 22 134/81 100 06/08/21 00:51 99 H 112/42 100 06/08/21 00:30 101 H 17 104/64 100 06/08/21 00:00 71 65 18 104/64 100 06/07/21 23:30 69 19 101/60 100 06/07/21 23:00 73 21 104/60 99 06/07/21 22:30 104 H 23 108/73 100 06/07/21 22:00 116 H 12 134/96 06/07/21 21:30 111 H 21 134/90 100 06/07/21 21:06 123 H 131/85 06/07/21 21:00 121 H 35 H 107/54 100 06/07/21 20:30 72 18 107/54 99 06/07/21 20:25 72 107/54 99 06/07/21 20:00 98.2 F 73 75 21 107/54 98 06/07/21 19:30 74 18 103/55 97 06/07/21 19:00 79 17 101/52 97 06/07/21 18:30 78 20 103/53 98 06/07/21 18:00 77 19 113/67 99 06/07/21 17:30 77 17 107/71 99 06/07/21 17:00 78 18 103/73 100 06/07/21 16:30 83 27 H 107/75 98 06/07/21 16:27 86 110/65 98 06/07/21 16:00 98.8 F 83 82 23 110/65 98 06/07/21 15:30 88 21 112/68 97 06/07/21 15:00 105 H 28 H 103/76 99 06/07/21 14:30 108 H 22 105/78 98 06/07/21 14:00 127 H 23 104/83 99 06/07/21 13:30 128 H 43 H 104/83 100 06/07/21 13:12 126 H 109/85 06/07/21 13:00 133 H 23 109/85 100 06/07/21 12:30 131 H 37 H 125/86 100 - Physical Examination General: No Apparent Distress HEENT: Positive: Normocephaly Neck: Positive: neck supple, trachea midline. Negative: JVD/HJR Cardiac: Positive: Reg Rate and Rhythm Lungs: Positive: Ventilated Respirations Neuro: Positive: Grossly Intact Abdomen: Positive: Soft Skin: Negative: Rash Extremities: Present: warm. Absent: edema - Labs and Meds Coagulation 06/07/21 Range/Units 10:50 PT 14.2 (12.2-14.9) Sec. INR 0.99 (0.87-1.13) CBC 06/08/21 Range/Units 04:42 WBC 8.7 (4.5-11.0) K/mm3 RBC 3.62 L (3.65-5.03) M/mm3 Hgb 10.2 L (11.8-15.2) gm/dl Hct 31.9 L (35.5-45.6) % Plt Count 502 H (140-440) K/mm3 Comprehensive Metabolic Panel 06/08/21 Range/Units 04:42 Sodium 143 (137-145) mmol/L Potassium 3.7 (3.6-5.0) mmol/L Chloride 109.9 H (98-107) mmol/L Carbon Dioxide 26 (22-30) mmol/L BUN 11 (9-20) mg/dL Creatinine 0.5 L (0.8-1.3) mg/dL Glucose 108 H (75-100) mg/dL Calcium 8.2 L (8.4-10.2) mg/dL - Imaging and Cardiology EKG: report reviewed, image reviewed Echo: report reviewed Cardiac cath: report reviewed - Telemetry EKG Rhythm: Sinus Rhythm - EKG Sinus rhythms and dysrhythmias: sinus rhythm, sinus tachycardia Ventricular dysrhythmias: ventricular premature com Repolarization changes or abnormalities: nonspecific abnormality, ST segment, and/or T wave - Allied health notes Allied health notes reviewed: nursing
[2021-06-08] MEDS: HALOPERIDOL LACTATE 5 MG/1 ML INJ IV PRN (13:46)
[2021-06-08] MEDS: FAMOTIDINE 20 MG TAB FEEDTUBE SCH (21:07)
[2021-06-09] MEDS: LORazepam 2 MG/ML VIAL IV PRN ×2 (00:28→16:32)
[2021-06-09] MEDS: FREE WATER PO SCH ×6 (03:42→21:45)
[2021-06-09 05:48] LABS: Hematocrit 32.9 % (35.5-45.6); Hemoglobin 10.3 gm/dl (11.8-15.2); Mean Corpuscular HGB Conc 31 % (32-34); Mean Corpuscular Volume 86 fl (84-94); Platelet Count 533 K/mm3 (140-440); Red Blood Count 3.81 M/mm3 (3.65-5.03); Red Cell Distribution Width 15.9 % (13.2-15.2)
[2021-06-09 06:04] LABS: Blood Urea Nitrogen 13 mg/dL (9-20); Calcium 8.1 mg/dL (8.4-10.2); Hemolysis Index 0
[2021-06-09 06:05] LABS: BUN/Creatinine Ratio 22
[2021-06-09] MEDS ORDERED: POTASSIUM CHLORIDE 20 MEQ PACKET FEEDTUBE SCH (09:00)
[2021-06-09] MEDS ORDERED: MAGNESIUM SULFATE 2 GM/50 ML BAG IV SCH (09:00)
[2021-06-09] MEDS: SENNOSIDES/DOCUSATE SODIUM 8.6/50 MG TAB FEEDTUBE SCH ×2 (10:21→21:46)
[2021-06-09] MEDS: AMPICILLIN/SULBACTA 3GM/100ML 3 GM/100 ML BAG IV SCH ×4 (10:21→23:41)
[2021-06-09] MEDS: APIXABAN 5 MG TAB PO SCH ×2 (10:21→21:45)
[2021-06-09] MEDS: QUEtiapine 25 MG TAB PO SCH ×2 (10:21→21:46)
[2021-06-09] MEDS: carvediloL 6.25 MG TAB FEEDTUBE SCH ×2 (10:21→21:45)
[2021-06-09] MEDS: FUROSEMIDE 20 MG TAB FEEDTUBE SCH ×2 (10:21→21:45)
[2021-06-09] MEDS: FOLBEE PLUS CZ (FOLIC ACID/VIT BCOMP&C/CU/ZNOX) PO SCH (10:30)
--- NOTE | 2021-06-09 11:47 | Progress Note ---
Assessment and Plan 40 y/o male with suspected overdose and metabolic acidosis 06/09/21: Will attempt some PSV trials today. Given marginal BP's will keep las ix at current dose if ok with Cards. Discuss with CM about placement. Guarded prognosis. 06/08/21: Today will turn off fent and see if patient can maintain off this. If so, RT will start PSV trials while on precedex. CM still working on placement. Tolerated low dose BB and lasix therapy. Stopping midodrine today and will reassess blood pressure tomorrow. If stable off midodrine, will consider increasing lasix to 40 BID. Continue ICU care. 06/07/21: Continue BID seroquel. Reviewed I/O. Positive daily for several days. No issues with hypoxemia but as we wean vent settings and remove af terload reducers, worried about worsening pullm status. Will ask cards about scheduled diuretic therapy. Continue to wean as tolerated. Placement. 06/06/21: Will start BID Seroquel today. Wean Diprovan off. Once off all sedation, will attempt PSV trials. Placement. 06/05/21: Gain control of sedation and mental state. Feed per peg tube. Anticoagulation for DVT. Abx. Placement. 06/04/21: Trach and peg today. Wean sedation as tolerated once trached. once off all sedation can try PSV trials if patient will remain calm enough. Anticoagulation for DVT. MRI and head CT were negative. COntinue abx therapy. Guarded prognosis. 06/03/21: Surgery has seen and will schedule for trach and peg soon. IR consulted given acute DVT in upper ext and possible retained products. Will obtain CT of chest. Given mental status and no real answer with negative head CT, will obtain MRI. Will start empiric unasyn given secretions, odor and white count. Only on minimal vent settings. Await sputum culture. LFT's better. WIll place central line in groin. GUarded prognosis. 06/02/21: recheck LFT's. Consult surgery for trach and peg. Feed patient. Reviewed abdominal US from 05/27, unremarkable but if LFT's worse, may need to repeat or even consider CT of abdomen pelvis. 06/01/21: Reintubated today. Sedated. Spoke with mother over the phone. Given this is the third intubation in less than 10 days, will consult surgery for trach and peg. 05/31/21: Extubated and had some upper airway noise. RT gave racemic epi. Increased work of breathing but no desats so will try bipap therapy. If fails will be reintubated and trached. Keep NPO for now. Will need to change BB to IV while on bipap therapy. 05/28/21: Extubate again today once patient is more awake. Continue precedex to help with agitation. Will need swallow eval once extubated. Cards is seeing, await any new recs. spoke with them this morning and his cardiomyopathy and systolic heart failure are chronic with normal coronaries on a cath last year sometime in the [facility]. 05/27/21: Get patient to ICU as soon as possible to achieve adequate sedation and mental state control to insure successful extubation. AGree with Precedex 05/26/21: Attempt extubation today once all sedation is off. 05/25/21: follow up echo. Spoke with RT about ABG. States will be in system within the hour. Still pressors but on Precedex, Versed and Fent. needs to be COVID tested. BNP was >6k. Unable to diurese right now given pressor requirements but need to follow up echo. need to get patient upstairs as soon as possible. Spoke with charge nurse and they are working on this. 1. CXR shows cardiomegaly with some bibasilar changes. Could be fluid. Suggest swabbing for COVID. Check BNP and obtain 2D echo given heart size. 2. Minimal sedation to assess mental status 3. Wean pressors for MAPS >60 4. Follow up renal recs 5. No ABG prior to intubation. Echo should be a bubble study given degree of hypoxemia seen on ABG CCT 31 minutes. Subjective Date of service: 06/09/21 Principal diagnosis: Overdose Interval history: Off fent. Only on Precedex 1. BP and heart rate stable. Objective Vital Signs - 12hr 06/09/21 06/09/21 06/09/21 00:00 00:04 00:30 Temperature 98.4 F Pulse Rate 69 78 84 Pulse Rate [ 70 From Monitor] Respiratory 14 19 24 Rate Blood Pressure 105/63 116/73 116/73 O2 Sat by Pulse 100 99 99 Oximetry O2 Sat by Pulse Oximetry [ Assessment] 06/09/21 06/09/21 06/09/21 01:00 01:30 02:00 Temperature Pulse Rate 70 68 70 Pulse Rate [ From Monitor] Respiratory 25 H 28 H 21 Rate Blood Pressure 114/61 114/61 111/62 O2 Sat by Pulse 99 100 100 Oximetry O2 Sat by Pulse Oximetry [ Assessment] 06/09/21 06/09/21 06/09/21 02:30 03:00 03:30 Temperature Pulse Rate 67 68 72 Pulse Rate [ From Monitor] Respiratory 30 H 27 H 23 Rate Blood Pressure 115/66 113/67 110/68 O2 Sat by Pulse 100 100 100 Oximetry O2 Sat by Pulse Oximetry [ Assessment] 06/09/21 06/09/21 06/09/21 04:00 04:18 04:30 Temperature Pulse Rate 72 75 Pulse Rate [ 70 From Monitor] Respiratory 29 H 17 Rate Blood Pressure 108/63 109/60 O2 Sat by Pulse 99 100 Oximetry O2 Sat by Pulse 100 Oximetry [ Assessment] 06/09/21 06/09/21 06/09/21 05:00 05:30 06:00 Temperature Pulse Rate 82 85 89 Pulse Rate [ From Monitor] Respiratory 17 18 17 Rate Blood Pressure 107/62 107/62 101/72 O2 Sat by Pulse 98 100 100 Oximetry O2 Sat by Pulse Oximetry [ Assessment] 06/09/21 06/09/21 06/09/21 06:30 07:00 07:30 Temperature Pulse Rate 86 72 72 Pulse Rate [ From Monitor] Respiratory 30 H 18 27 H Rate Blood Pressure 103/59 113/73 113/73 O2 Sat by Pulse 100 100 99 Oximetry O2 Sat by Pulse Oximetry [ Assessment] 06/09/21 06/09/21 06/09/21 07:34 07:38 08:00 Temperature Pulse Rate 67 71 Pulse Rate [ From Monitor] Respiratory 28 H Rate Blood Pressure 109/65 109/65 O2 Sat by Pulse 98 98 Oximetry O2 Sat by Pulse 98 Oximetry [ Assessment] 06/09/21 06/09/21 06/09/21 08:30 09:00 09:30 Temperature Pulse Rate 84 95 H Pulse Rate [ From Monitor] Respiratory 17 17 20 Rate Blood Pressure 118/61 113/59 110/68 O2 Sat by Pulse 100 100 98 Oximetry O2 Sat by Pulse Oximetry [ Assessment] 06/09/21 06/09/21 06/09/21 10:00 10:21 10:30 Temperature Pulse Rate 104 H 74 75 Pulse Rate [ From Monitor] Respiratory 16 20 Rate Blood Pressure 114/77 121/73 121/73 O2 Sat by Pulse 100 Oximetry O2 Sat by Pulse Oximetry [ Assessment] Constitutional: other (Arousable to verbal stimulation) ENT: oropharynx moist, other (Orally intubated) Ascultation: Bilateral: rhonchi Cardiovascular: regular rate and rhythm (With episodes of tachycardia) Gastrointestinal: normoactive bowel sounds, soft, non-tender CBC and BMP: 06/09/21 05:10 06/09/21 05:10 ABG, PT/INR, D-dimer: ABG ABG pH 7.406 (7.320-7.450) 06/04/21 04:00 POC ABG pCO2 51.5 mmHg (32.0-48.0) H 06/04/21 04:00 ABG pCO2 54.4 mm Hg 06/02/21 05:42 POC ABG pO2 61.7 mmHg (83-108) L 06/04/21 04:00 ABG pO2 141.2 mm Hg (80.0-90.0) H 06/02/21 05:42 POC ABG HCO3 31.6 06/04/21 04:00 ABG O2 Saturation 92.7 (0-100) 06/04/21 04:00 PT/INR, D-dimer PT 14.2 Sec. (12.2-14.9) 06/07/21 10:50 INR 0.99 (0.87-1.13) 06/07/21 10:50 Abnormal lab findings: Abnormal Labs 05/23/21 05/23/21 05/23/21 05:55 09:38 09:38 WBC RBC 5.09 H Hgb Hct 46.2 H MCH MCHC RDW Plt Count Lymph % (Auto) Terrell % (Auto) Terrell # (Auto) Seg Neutrophils % Seg Neuts % (Manual) Lymphocytes % (Manual) Seg Neutrophils # Seg Neutrophils # Man Lymphocytes # (Manual) PT INR Heparin Anti-Xa Level ABG pH 7.265 L POC ABG pCO2 POC ABG pO2 ABG pO2 ABG HCO3 ABG O2 Saturation 94.6 L ABG Base Excess -4.5 L ABG Hemoglobin ABG Oxyhemoglobin ABG Potassium ABG Glucose Oxyhemoglobin 92.3 L Carboxyhemoglobin Sodium Potassium Chloride Carbon Dioxide 20 L BUN Creatinine Glucose 147 H POC Glucose Lactic Acid Calcium Phosphorus Magnesium Total Bilirubin Direct Bilirubin AST Total Creatine Kinase C-Reactive Protein NT-Pro-B Natriuret Pep Total Protein Albumin 3.6 L Triglycerides Arterial Blood Glucose Urine WBC (Auto) Salicylates Acetaminophen 05/23/21 05/23/21 05/23/21 09:38 09:38 09:38 WBC RBC Hgb Hct MCH MCHC RDW Plt Count Lymph % (Auto) Terrell % (Auto) Terrell # (Auto) Seg Neutrophils % Seg Neuts % (Manual) Lymphocytes % (Manual) Seg Neutrophils # Seg Neutrophils # Man Lymphocytes # (Manual) PT INR Heparin Anti-Xa Level ABG pH POC ABG pCO2 POC ABG pO2 ABG pO2 ABG HCO3 ABG O2 Saturation ABG Base Excess ABG Hemoglobin ABG Oxyhemoglobin ABG Potassium ABG Glucose Oxyhemoglobin Carboxyhemoglobin Sodium Potassium Chloride Carbon Dioxide BUN Creatinine Glucose POC Glucose Lactic Acid Calcium Phosphorus Magnesium Total Bilirubin Direct Bilirubin AST Total Creatine Kinase C-Reactive Protein NT-Pro-B Natriuret Pep 6058 H Total Protein Albumin Triglycerides Arterial Blood Glucose Urine WBC (Auto) Salicylates < 0.3 L Acetaminophen 5.0 L 05/23/21 05/23/21 05/24/21 12:49 Unknown 03:44 WBC RBC Hgb Hct MCH MCHC RDW Plt Count Lymph % (Auto) Terrell % (Auto) Terrell # (Auto) Seg Neutrophils % Seg Neuts % (Manual) Lymphocytes % (Manual) Seg Neutrophils # Seg Neutrophils # Man Lymphocytes # (Manual) PT INR Heparin Anti-Xa Level ABG pH 7.208 L 7.241 L POC ABG pCO2 POC ABG pO2 ABG pO2 52.2 L ABG HCO3 ABG O2 Saturation 93.5 L 83.7 L ABG Base Excess -6.7 L -3.7 L ABG Hemoglobin ABG Oxyhemoglobin ABG Potassium 5.6 H ABG Glucose 53 L Oxyhemoglobin 91.1 L 81.1 L Carboxyhemoglobin Sodium Potassium Chloride Carbon Dioxide BUN Creatinine Glucose POC Glucose Lactic Acid Calcium Phosphorus Magnesium Total Bilirubin Direct Bilirubin AST Total Creatine Kinase C-Reactive Protein NT-Pro-B Natriuret Pep Total Protein Albumin Triglycerides Arterial Blood Glucose 53 L Urine WBC (Auto) Salicylates Acetaminophen 05/24/21 05/24/21 05/24/21 05:14 05:14 09:35 WBC 23.3 H RBC 5.23 H Hgb Hct 47.3 H MCH MCHC RDW 15.3 H Plt Count Lymph % (Auto) Terrell % (Auto) Terrell # (Auto) Seg Neutrophils % Seg Neuts % (Manual) 12.0 L Lymphocytes % (Manual) 3.0 L Seg Neutrophils # Seg Neutrophils # Man Lymphocytes # (Manual) 0.7 L PT INR Heparin Anti-Xa Level ABG pH POC ABG pCO2 POC ABG pO2 ABG pO2 ABG HCO3 ABG O2 Saturation ABG Base Excess ABG Hemoglobin ABG Oxyhemoglobin ABG Potassium ABG Glucose Oxyhemoglobin Carboxyhemoglobin Sodium Potassium 6.3 H* D Chloride 107.3 H Carbon Dioxide 20 L BUN 33 H Creatinine 3.5 H D Glucose 56 L POC Glucose Lactic Acid Calcium Phosphorus Magnesium Total Bilirubin 1.90 H Direct Bilirubin AST Total Creatine Kinase 556 H C-Reactive Protein NT-Pro-B Natriuret Pep Total Protein 4.9 L D Albumin 2.8 L Triglycerides Arterial Blood Glucose Urine WBC (Auto) Salicylates Acetaminophen 05/24/21 05/24/21 05/25/21 19:45 Unknown 04:23 WBC 20.1 H RBC Hgb Hct MCH MCHC 31 L RDW 15.5 H Plt Count Lymph % (Auto) Terrell % (Auto) Terrell # (Auto) Seg Neutrophils % Seg Neuts % (Manual) 94.0 H Lymphocytes % (Manual) 5.0 L Seg Neutrophils # Seg Neutrophils # Man 18.9 H Lymphocytes # (Manual) 1.0 L PT INR Heparin Anti-Xa Level ABG pH POC ABG pCO2 POC ABG pO2 ABG pO2 ABG HCO3 ABG O2 Saturation ABG Base Excess ABG Hemoglobin ABG Oxyhemoglobin ABG Potassium ABG Glucose Oxyhemoglobin Carboxyhemoglobin Sodium Potassium 5.7 H Chloride 108.9 H Carbon Dioxide 21 L BUN 36 H Creatinine 2.6 H Glucose 108 H POC Glucose Lactic Acid Calcium Phosphorus Magnesium Total Bilirubin Direct Bilirubin AST Total Creatine Kinase C-Reactive Protein NT-Pro-B Natriuret Pep Total Protein Albumin Triglycerides Arterial Blood Glucose Urine WBC (Auto) 78.0 H Salicylates Acetaminophen 05/25/21 05/25/21 05/25/21 04:23 09:14 11:46 WBC RBC Hgb Hct MCH MCHC RDW Plt Count Lymph % (Auto) Terrell % (Auto) Terrell # (Auto) Seg Neutrophils % Seg Neuts % (Manual) Lymphocytes % (Manual) Seg Neutrophils # Seg Neutrophils # Man Lymphocytes # (Manual) PT INR Heparin Anti-Xa Level ABG pH POC ABG pCO2 POC ABG pO2 ABG pO2 ABG HCO3 ABG O2 Saturation ABG Base Excess ABG Hemoglobin ABG Oxyhemoglobin ABG Potassium ABG Glucose Oxyhemoglobin Carboxyhemoglobin Sodium Potassium Chloride 111.4 H Carbon Dioxide 18 L BUN 33 H Creatinine 1.9 H Glucose 121 H POC Glucose Lactic Acid 2.40 H* 2.60 H* Calcium Phosphorus Magnesium Total Bilirubin Direct Bilirubin AST Total Creatine Kinase C-Reactive Protein NT-Pro-B Natriuret Pep Total Protein Albumin Triglycerides Arterial Blood Glucose Urine WBC (Auto) Salicylates Acetaminophen 05/25/21 05/26/21 05/26/21 18:00 03:16 05:55 WBC 22.0 H RBC Hgb Hct MCH MCHC RDW 15.3 H Plt Count Lymph % (Auto) Terrell % (Auto) Terrell # (Auto) Seg Neutrophils % Seg Neuts % (Manual) 96.0 H Lymphocytes % (Manual) 2.0 L Seg Neutrophils # Seg Neutrophils # Man 21.1 H Lymphocytes # (Manual) 0.4 L PT INR Heparin Anti-Xa Level ABG pH POC ABG pCO2 POC ABG pO2 ABG pO2 208.2 H ABG HCO3 ABG O2 Saturation 99.3 H ABG Base Excess -2.7 L -2.6 L ABG Hemoglobin 13.7 L 13.0 L ABG Oxyhemoglobin ABG Potassium ABG Glucose Oxyhemoglobin 94.8 L Carboxyhemoglobin Sodium Potassium Chloride Carbon Dioxide BUN Creatinine Glucose POC Glucose Lactic Acid Calcium Phosphorus Magnesium Total Bilirubin Direct Bilirubin AST Total Creatine Kinase C-Reactive Protein NT-Pro-B Natriuret Pep Total Protein Albumin Triglycerides Arterial Blood Glucose Urine WBC (Auto) Salicylates Acetaminophen 05/26/21 05/27/21 05/27/21 05:55 03:18 03:18 WBC 21.5 H RBC Hgb Hct MCH MCHC RDW 15.5 H Plt Count Lymph % (Auto) Terrell % (Auto) Terrell # (Auto) Seg Neutrophils % Seg Neuts % (Manual) 92.0 H Lymphocytes % (Manual) 5.0 L Seg Neutrophils # Seg Neutrophils # Man 19.8 H Lymphocytes # (Manual) 1.1 L PT INR Heparin Anti-Xa Level ABG pH POC ABG pCO2 POC ABG pO2 ABG pO2 ABG HCO3 ABG O2 Saturation ABG Base Excess ABG Hemoglobin ABG Oxyhemoglobin ABG Potassium ABG Glucose Oxyhemoglobin Carboxyhemoglobin Sodium 148 H Potassium Chloride 111.3 H 113.8 H Carbon Dioxide 21 L 20 L BUN 23 H Creatinine Glucose 102 H 103 H POC Glucose Lactic Acid Calcium 8.3 L Phosphorus Magnesium Total Bilirubin 7.80 H Direct Bilirubin AST 112 H Total Creatine Kinase C-Reactive Protein NT-Pro-B Natriuret Pep Total Protein 5.2 L Albumin 2.9 L Triglycerides Arterial Blood Glucose Urine WBC (Auto) Salicylates Acetaminophen 05/27/21 05/28/21 05/28/21 03:18 05:55 10:05 WBC 11.4 H RBC Hgb Hct MCH MCHC RDW 15.5 H Plt Count Lymph % (Auto) 11.2 L Terrell % (Auto) 8.6 H Terrell # (Auto) 1.0 H Seg Neutrophils % 78.9 H Seg Neuts % (Manual) Lymphocytes % (Manual) Seg Neutrophils # 9.0 H Seg Neutrophils # Man Lymphocytes # (Manual) PT INR Heparin Anti-Xa Level ABG pH POC ABG pCO2 POC ABG pO2 ABG pO2 104.7 H ABG HCO3 ABG O2 Saturation ABG Base Excess -3.1 L ABG Hemoglobin 13.2 L ABG Oxyhemoglobin ABG Potassium ABG Glucose Oxyhemoglobin Carboxyhemoglobin Sodium Potassium Chloride Carbon Dioxide BUN Creatinine Glucose POC Glucose Lactic Acid Calcium Phosphorus Magnesium Total Bilirubin 7.90 H Direct Bilirubin 6.0 H AST 114 H Total Creatine Kinase C-Reactive Protein NT-Pro-B Natriuret Pep Total Protein 5.2 L Albumin 2.8 L Triglycerides Arterial Blood Glucose Urine WBC (Auto) Salicylates Acetaminophen 05/28/21 05/28/21 05/28/21 10:05 10:05 10:05 WBC RBC Hgb Hct MCH MCHC RDW Plt Count Lymph % (Auto) Terrell % (Auto) Terrell # (Auto) Seg Neutrophils % Seg Neuts % (Manual) Lymphocytes % (Manual) Seg Neutrophils # Seg Neutrophils # Man Lymphocytes # (Manual) PT INR Heparin Anti-Xa Level ABG pH POC ABG pCO2 POC ABG pO2 ABG pO2 ABG HCO3 ABG O2 Saturation ABG Base Excess ABG Hemoglobin ABG Oxyhemoglobin ABG Potassium ABG Glucose Oxyhemoglobin Carboxyhemoglobin Sodium 149 H Potassium Chloride 119.9 H Carbon Dioxide 18 L BUN Creatinine Glucose 103 H POC Glucose Lactic Acid 2.10 H* Calcium Phosphorus Magnesium Total Bilirubin Direct Bilirubin AST Total Creatine Kinase C-Reactive Protein 34.80 H NT-Pro-B Natriuret Pep Total Protein Albumin Triglycerides Arterial Blood Glucose Urine WBC (Auto) Salicylates Acetaminophen 05/29/21 05/29/21 05/29/21 03:00 05:02 05:02 WBC 13.0 H RBC Hgb Hct MCH MCHC RDW 15.4 H Plt Count Lymph % (Auto) Terrell % (Auto) Terrell # (Auto) Seg Neutrophils % Seg Neuts % (Manual) Lymphocytes % (Manual) Seg Neutrophils # Seg Neutrophils # Man Lymphocytes # (Manual) PT INR Heparin Anti-Xa Level ABG pH POC ABG pCO2 POC ABG pO2 ABG pO2 138.1 H ABG HCO3 ABG O2 Saturation ABG Base Excess -3.6 L ABG Hemoglobin 12.8 L ABG Oxyhemoglobin ABG Potassium ABG Glucose Oxyhemoglobin Carboxyhemoglobin Sodium 150 H Potassium Chloride 119.8 H Carbon Dioxide 18 L BUN Creatinine Glucose 109 H POC Glucose Lactic Acid Calcium Phosphorus 2.20 L Magnesium 1.50 L Total Bilirubin Direct Bilirubin AST Total Creatine Kinase C-Reactive Protein NT-Pro-B Natriuret Pep Total Protein Albumin Triglycerides Arterial Blood Glucose Urine WBC (Auto) Salicylates Acetaminophen 05/29/21 05/29/21 05/30/21 17:00 23:37 04:29 WBC RBC Hgb 10.8 L Hct 33.4 L MCH MCHC RDW 15.7 H Plt Count Lymph % (Auto) Terrell % (Auto) Terrell # (Auto) Seg Neutrophils % Seg Neuts % (Manual) Lymphocytes % (Manual) Seg Neutrophils # Seg Neutrophils # Man Lymphocytes # (Manual) PT INR Heparin Anti-Xa Level ABG pH POC ABG pCO2 POC ABG pO2 ABG pO2 ABG HCO3 ABG O2 Saturation ABG Base Excess ABG Hemoglobin ABG Oxyhemoglobin ABG Potassium ABG Glucose Oxyhemoglobin Carboxyhemoglobin Sodium Potassium Chloride Carbon Dioxide BUN Creatinine Glucose POC Glucose 114 H 122 H Lactic Acid Calcium Phosphorus Magnesium Total Bilirubin Direct Bilirubin AST Total Creatine Kinase C-Reactive Protein NT-Pro-B Natriuret Pep Total Protein Albumin Triglycerides Arterial Blood Glucose Urine WBC (Auto) Salicylates Acetaminophen 05/30/21 05/30/21 05/31/21 04:29 23:36 04:00 WBC 11.2 H RBC Hgb 10.9 L Hct 34.3 L MCH MCHC RDW 15.4 H Plt Count Lymph % (Auto) Terrell % (Auto) Terrell # (Auto) Seg Neutrophils % Seg Neuts % (Manual) Lymphocytes % (Manual) Seg Neutrophils # Seg Neutrophils # Man Lymphocytes # (Manual) PT INR Heparin Anti-Xa Level ABG pH POC ABG pCO2 POC ABG pO2 ABG pO2 ABG HCO3 ABG O2 Saturation ABG Base Excess ABG Hemoglobin ABG Oxyhemoglobin ABG Potassium ABG Glucose Oxyhemoglobin Carboxyhemoglobin Sodium Potassium 3.2 L Chloride 112.4 H Carbon Dioxide 21 L BUN Creatinine 0.7 L Glucose 128 H POC Glucose 120 H Lactic Acid Calcium Phosphorus Magnesium Total Bilirubin Direct Bilirubin AST Total Creatine Kinase C-Reactive Protein NT-Pro-B Natriuret Pep Total Protein Albumin Triglycerides Arterial Blood Glucose Urine WBC (Auto) Salicylates Acetaminophen 05/31/21 05/31/21 05/31/21 04:00 11:50 16:16 WBC RBC Hgb Hct MCH MCHC RDW Plt Count Lymph % (Auto) Terrell % (Auto) Terrell # (Auto) Seg Neutrophils % Seg Neuts % (Manual) Lymphocytes % (Manual) Seg Neutrophils # Seg Neutrophils # Man Lymphocytes # (Manual) PT INR Heparin Anti-Xa Level ABG pH POC ABG pCO2 POC ABG pO2 ABG pO2 ABG HCO3 ABG O2 Saturation ABG Base Excess ABG Hemoglobin ABG Oxyhemoglobin ABG Potassium ABG Glucose Oxyhemoglobin Carboxyhemoglobin Sodium 148 H Potassium Chloride 114.8 H Carbon Dioxide BUN Creatinine Glucose 151 H POC Glucose 123 H 107 H Lactic Acid Calcium Phosphorus Magnesium Total Bilirubin Direct Bilirubin AST Total Creatine Kinase C-Reactive Protein NT-Pro-B Natriuret Pep Total Protein Albumin Triglycerides Arterial Blood Glucose Urine WBC (Auto) Salicylates Acetaminophen 06/01/21 06/01/21 06/01/21 02:55 04:10 04:10 WBC 16.5 H RBC Hgb Hct MCH MCHC RDW 16.0 H Plt Count Lymph % (Auto) Terrell % (Auto) Terrell # (Auto) Seg Neutrophils % Seg Neuts % (Manual) Lymphocytes % (Manual) Seg Neutrophils # Seg Neutrophils # Man Lymphocytes # (Manual) PT INR Heparin Anti-Xa Level ABG pH 7.334 L POC ABG pCO2 POC ABG pO2 ABG pO2 ABG HCO3 26.1 H ABG O2 Saturation ABG Base Excess ABG Hemoglobin 12.6 L ABG Oxyhemoglobin ABG Potassium ABG Glucose Oxyhemoglobin 93.1 L Carboxyhemoglobin Sodium 148 H Potassium 3.4 L Chloride 108.8 H Carbon Dioxide BUN Creatinine Glucose 113 H POC Glucose Lactic Acid Calcium Phosphorus Magnesium Total Bilirubin Direct Bilirubin AST Total Creatine Kinase C-Reactive Protein NT-Pro-B Natriuret Pep Total Protein Albumin Triglycerides Arterial Blood Glucose Urine WBC (Auto) Salicylates Acetaminophen 06/01/21 06/01/21 06/02/21 12:46 15:30 05:42 WBC RBC Hgb Hct MCH MCHC RDW Plt Count Lymph % (Auto) Terrell % (Auto) Terrell # (Auto) Seg Neutrophils % Seg Neuts % (Manual) Lymphocytes % (Manual) Seg Neutrophils # Seg Neutrophils # Man Lymphocytes # (Manual) PT INR Heparin Anti-Xa Level ABG pH POC ABG pCO2 POC ABG pO2 ABG pO2 114.5 H 141.2 H ABG HCO3 29.6 H 30.6 H ABG O2 Saturation ABG Base Excess 4.5 H 4.1 H ABG Hemoglobin 11.8 L 12.0 L ABG Oxyhemoglobin ABG Potassium ABG Glucose Oxyhemoglobin Carboxyhemoglobin Sodium Potassium Chloride Carbon Dioxide BUN Creatinine Glucose POC Glucose 119 H Lactic Acid Calcium Phosphorus Magnesium Total Bilirubin Direct Bilirubin AST Total Creatine Kinase C-Reactive Protein NT-Pro-B Natriuret Pep Total Protein Albumin Triglycerides Arterial Blood Glucose Urine WBC (Auto) Salicylates Acetaminophen 06/02/21 06/02/21 06/02/21 07:41 07:41 07:41 WBC 17.4 H RBC Hgb 11.1 L Hct 34.3 L MCH MCHC RDW 15.9 H Plt Count Lymph % (Auto) Terrell % (Auto) Terrell # (Auto) Seg Neutrophils % Seg Neuts % (Manual) Lymphocytes % (Manual) Seg Neutrophils # Seg Neutrophils # Man Lymphocytes # (Manual) PT INR Heparin Anti-Xa Level ABG pH POC ABG pCO2 POC ABG pO2 ABG pO2 ABG HCO3 ABG O2 Saturation ABG Base Excess ABG Hemoglobin ABG Oxyhemoglobin ABG Potassium ABG Glucose Oxyhemoglobin Carboxyhemoglobin Sodium 150 H Potassium Chloride 111.8 H Carbon Dioxide BUN Creatinine Glucose POC Glucose Lactic Acid Calcium Phosphorus Magnesium Total Bilirubin 3.30 H Direct Bilirubin 2.4 H AST 48 H Total Creatine Kinase C-Reactive Protein NT-Pro-B Natriuret Pep Total Protein 6.1 L Albumin 2.1 L Triglycerides Arterial Blood Glucose Urine WBC (Auto) Salicylates Acetaminophen 06/02/21 06/02/21 06/03/21 20:00 23:30 08:29 WBC 12.2 H RBC Hgb 11.7 L Hct MCH 27 L MCHC 31 L RDW 15.4 H Plt Count Lymph % (Auto) Terrell % (Auto) Terrell # (Auto) Seg Neutrophils % Seg Neuts % (Manual) Lymphocytes % (Manual) Seg Neutrophils # Seg Neutrophils # Man Lymphocytes # (Manual) PT INR Heparin Anti-Xa Level ABG pH POC ABG pCO2 POC ABG pO2 ABG pO2 ABG HCO3 ABG O2 Saturation ABG Base Excess ABG Hemoglobin ABG Oxyhemoglobin ABG Potassium ABG Glucose Oxyhemoglobin Carboxyhemoglobin Sodium Potassium Chloride 111.1 H Carbon Dioxide BUN Creatinine 0.7 L Glucose 105 H POC Glucose 112 H Lactic Acid Calcium 8.3 L Phosphorus Magnesium Total Bilirubin 2.90 H Direct Bilirubin AST 53 H Total Creatine Kinase C-Reactive Protein NT-Pro-B Natriuret Pep Total Protein 6.2 L Albumin 1.8 L Triglycerides Arterial Blood Glucose Urine WBC (Auto) Salicylates Acetaminophen 06/03/21 06/03/21 06/04/21 Unknown Unknown 04:00 WBC RBC Hgb 10.2 L Hct 31.9 L D MCH MCHC RDW Plt Count Lymph % (Auto) Terrell % (Auto) Terrell # (Auto) Seg Neutrophils % Seg Neuts % (Manual) Lymphocytes % (Manual) Seg Neutrophils # Seg Neutrophils # Man Lymphocytes # (Manual) PT 16.7 H INR 1.22 H Heparin Anti-Xa Level ABG pH POC ABG pCO2 51.5 H POC ABG pO2 61.7 L ABG pO2 ABG HCO3 ABG O2 Saturation ABG Base Excess ABG Hemoglobin ABG Oxyhemoglobin 90.9 L ABG Potassium ABG Glucose Oxyhemoglobin Carboxyhemoglobin 1.6 H Sodium Potassium Chloride Carbon Dioxide BUN Creatinine Glucose POC Glucose Lactic Acid Calcium Phosphorus Magnesium Total Bilirubin Direct Bilirubin AST Total Creatine Kinase C-Reactive Protein NT-Pro-B Natriuret Pep Total Protein Albumin Triglycerides Arterial Blood Glucose Urine WBC (Auto) Salicylates Acetaminophen 06/04/21 06/04/21 06/04/21 04:10 04:10 04:10 WBC 11.7 H RBC Hgb 11.2 L Hct MCH MCHC 31 L RDW 15.8 H Plt Count 447 H Lymph % (Auto) Terrell % (Auto) Terrell # (Auto) Seg Neutrophils % Seg Neuts % (Manual) Lymphocytes % (Manual) Seg Neutrophils # Seg Neutrophils # Man Lymphocytes # (Manual) PT 15.8 H INR 1.14 H Heparin Anti-Xa Level ABG pH POC ABG pCO2 POC ABG pO2 ABG pO2 ABG HCO3 ABG O2 Saturation ABG Base Excess ABG Hemoglobin ABG Oxyhemoglobin ABG Potassium ABG Glucose Oxyhemoglobin Carboxyhemoglobin Sodium 146 H Potassium Chloride 109.4 H Carbon Dioxide BUN Creatinine 0.6 L Glucose 122 H POC Glucose Lactic Acid Calcium Phosphorus Magnesium Total Bilirubin Direct Bilirubin AST Total Creatine Kinase C-Reactive Protein NT-Pro-B Natriuret Pep Total Protein Albumin Triglycerides 161 H Arterial Blood Glucose Urine WBC (Auto) Salicylates Acetaminophen 06/04/21 06/05/21 06/05/21 05:16 04:00 04:00 WBC RBC Hgb 11.3 L Hct 34.9 L MCH MCHC RDW 16.0 H Plt Count 515 H Lymph % (Auto) Terrell % (Auto) Terrell # (Auto) Seg Neutrophils % Seg Neuts % (Manual) Lymphocytes % (Manual) Seg Neutrophils # Seg Neutrophils # Man Lymphocytes # (Manual) PT INR Heparin Anti-Xa Level ABG pH POC ABG pCO2 POC ABG pO2 ABG pO2 ABG HCO3 ABG O2 Saturation ABG Base Excess ABG Hemoglobin ABG Oxyhemoglobin ABG Potassium ABG Glucose Oxyhemoglobin Carboxyhemoglobin Sodium Potassium 3.5 L Chloride Carbon Dioxide BUN 7 L Creatinine 0.6 L Glucose 131 H POC Glucose 107 H Lactic Acid Calcium Phosphorus Magnesium Total Bilirubin Direct Bilirubin AST Total Creatine Kinase C-Reactive Protein NT-Pro-B Natriuret Pep Total Protein Albumin Triglycerides Arterial Blood Glucose Urine WBC (Auto) Salicylates Acetaminophen 06/05/21 06/05/21 06/05/21 04:00 05:32 11:20 WBC RBC Hgb Hct MCH MCHC RDW Plt Count Lymph % (Auto) Terrell % (Auto) Terrell # (Auto) Seg Neutrophils % Seg Neuts % (Manual) Lymphocytes % (Manual) Seg Neutrophils # Seg Neutrophils # Man Lymphocytes # (Manual) PT INR Heparin Anti-Xa Level < 0.10 L 0.21 L ABG pH POC ABG pCO2 POC ABG pO2 ABG pO2 ABG HCO3 ABG O2 Saturation ABG Base Excess ABG Hemoglobin ABG Oxyhemoglobin ABG Potassium ABG Glucose Oxyhemoglobin Carboxyhemoglobin Sodium Potassium Chloride Carbon Dioxide BUN Creatinine Glucose POC Glucose 123 H Lactic Acid Calcium Phosphorus Magnesium Total Bilirubin Direct Bilirubin AST Total Creatine Kinase C-Reactive Protein NT-Pro-B Natriuret Pep Total Protein Albumin Triglycerides Arterial Blood Glucose Urine WBC (Auto) Salicylates Acetaminophen 06/05/21 06/05/21 06/06/21 12:15 17:12 02:02 WBC RBC Hgb Hct MCH MCHC RDW Plt Count Lymph % (Auto) Terrell % (Auto) Terrell # (Auto) Seg Neutrophils % Seg Neuts % (Manual) Lymphocytes % (Manual) Seg Neutrophils # Seg Neutrophils # Man Lymphocytes # (Manual) PT INR Heparin Anti-Xa Level ABG pH POC ABG pCO2 POC ABG pO2 ABG pO2 ABG HCO3 ABG O2 Saturation ABG Base Excess ABG Hemoglobin ABG Oxyhemoglobin ABG Potassium ABG Glucose Oxyhemoglobin Carboxyhemoglobin Sodium Potassium Chloride Carbon Dioxide BUN Creatinine Glucose POC Glucose 120 H 119 H 130 H Lactic Acid Calcium Phosphorus Magnesium Total Bilirubin Direct Bilirubin AST Total Creatine Kinase C-Reactive Protein NT-Pro-B Natriuret Pep Total Protein Albumin Triglycerides Arterial Blood Glucose Urine WBC (Auto) Salicylates Acetaminophen 06/06/21 06/06/21 06/06/21 04:00 04:00 10:00 WBC RBC Hgb 10.7 L Hct 33.6 L MCH MCHC RDW 16.2 H Plt Count 537 H Lymph % (Auto) Terrell % (Auto) Terrell # (Auto) Seg Neutrophils % Seg Neuts % (Manual) Lymphocytes % (Manual) Seg Neutrophils # Seg Neutrophils # Man Lymphocytes # (Manual) PT INR Heparin Anti-Xa Level 0.14 L ABG pH POC ABG pCO2 POC ABG pO2 ABG pO2 ABG HCO3 ABG O2 Saturation ABG Base Excess ABG Hemoglobin ABG Oxyhemoglobin ABG Potassium ABG Glucose Oxyhemoglobin Carboxyhemoglobin Sodium 153 H D Potassium 3.4 L Chloride 115.1 H Carbon Dioxide BUN 6 L Creatinine 0.5 L Glucose 110 H POC Glucose Lactic Acid Calcium 7.7 L Phosphorus Magnesium 1.40 L Total Bilirubin Direct Bilirubin AST Total Creatine Kinase C-Reactive Protein NT-Pro-B Natriuret Pep Total Protein Albumin Triglycerides Arterial Blood Glucose Urine WBC (Auto) Salicylates Acetaminophen 06/06/21 06/06/21 06/06/21 11:31 17:45 23:04 WBC RBC Hgb Hct MCH MCHC RDW Plt Count Lymph % (Auto) Terrell % (Auto) Terrell # (Auto) Seg Neutrophils % Seg Neuts % (Manual) Lymphocytes % (Manual) Seg Neutrophils # Seg Neutrophils # Man Lymphocytes # (Manual) PT INR Heparin Anti-Xa Level 0.11 L ABG pH POC ABG pCO2 POC ABG pO2 ABG pO2 ABG HCO3 ABG O2 Saturation ABG Base Excess ABG Hemoglobin ABG Oxyhemoglobin ABG Potassium ABG Glucose Oxyhemoglobin Carboxyhemoglobin Sodium Potassium Chloride Carbon Dioxide BUN Creatinine Glucose POC Glucose 112 H 113 H Lactic Acid Calcium Phosphorus Magnesium Total Bilirubin Direct Bilirubin AST Total Creatine Kinase C-Reactive Protein NT-Pro-B Natriuret Pep Total Protein Albumin Triglycerides Arterial Blood Glucose Urine WBC (Auto) Salicylates Acetaminophen 06/07/21 06/07/21 06/07/21 05:27 11:03 18:06 WBC RBC Hgb Hct MCH MCHC RDW Plt Count Lymph % (Auto) Terrell % (Auto) Terrell # (Auto) Seg Neutrophils % Seg Neuts % (Manual) Lymphocytes % (Manual) Seg Neutrophils # Seg Neutrophils # Man Lymphocytes # (Manual) PT INR Heparin Anti-Xa Level ABG pH POC ABG pCO2 POC ABG pO2 ABG pO2 ABG HCO3 ABG O2 Saturation ABG Base Excess ABG Hemoglobin ABG Oxyhemoglobin ABG Potassium ABG Glucose Oxyhemoglobin Carboxyhemoglobin Sodium Potassium Chloride Carbon Dioxide BUN Creatinine Glucose POC Glucose 111 H 142 H 114 H Lactic Acid Calcium Phosphorus Magnesium Total Bilirubin Direct Bilirubin AST Total Creatine Kinase C-Reactive Protein NT-Pro-B Natriuret Pep Total Protein Albumin Triglycerides Arterial Blood Glucose Urine WBC (Auto) Salicylates Acetaminophen 06/07/21 06/07/21 06/08/21 Unknown Unknown 00:49 WBC RBC 3.38 L Hgb 9.8 L Hct 29.4 L MCH MCHC RDW 16.2 H Plt Count 473 H Lymph % (Auto) Terrell % (Auto) Terrell # (Auto) Seg Neutrophils % Seg Neuts % (Manual) Lymphocytes % (Manual) Seg Neutrophils # Seg Neutrophils # Man Lymphocytes # (Manual) PT INR Heparin Anti-Xa Level ABG pH POC ABG pCO2 POC ABG pO2 ABG pO2 ABG HCO3 ABG O2 Saturation ABG Base Excess ABG Hemoglobin ABG Oxyhemoglobin ABG Potassium ABG Glucose Oxyhemoglobin Carboxyhemoglobin Sodium Potassium Chloride 107.4 H Carbon Dioxide BUN 8 L Creatinine 0.6 L Glucose 123 H POC Glucose 125 H Lactic Acid Calcium Phosphorus 2.30 L Magnesium Total Bilirubin Direct Bilirubin AST Total Creatine Kinase C-Reactive Protein NT-Pro-B Natriuret Pep Total Protein Albumin Triglycerides Arterial Blood Glucose Urine WBC (Auto) Salicylates Acetaminophen 06/08/21 06/08/21 06/08/21 04:42 04:42 05:15 WBC RBC 3.62 L Hgb 10.2 L Hct 31.9 L MCH MCHC RDW 16.5 H Plt Count 502 H Lymph % (Auto) Terrell % (Auto) Terrell # (Auto) Seg Neutrophils % Seg Neuts % (Manual) Lymphocytes % (Manual) Seg Neutrophils # Seg Neutrophils # Man Lymphocytes # (Manual) PT INR Heparin Anti-Xa Level ABG pH POC ABG pCO2 POC ABG pO2 ABG pO2 ABG HCO3 ABG O2 Saturation ABG Base Excess ABG Hemoglobin ABG Oxyhemoglobin ABG Potassium ABG Glucose Oxyhemoglobin Carboxyhemoglobin Sodium Potassium Chloride 109.9 H Carbon Dioxide BUN Creatinine 0.5 L Glucose 108 H POC Glucose 113 H Lactic Acid Calcium 8.2 L Phosphorus Magnesium 1.60 L Total Bilirubin Direct Bilirubin AST Total Creatine Kinase C-Reactive Protein NT-Pro-B Natriuret Pep Total Protein Albumin Triglycerides Arterial Blood Glucose Urine WBC (Auto) Salicylates Acetaminophen 06/08/21 06/08/21 06/08/21 12:02 17:58 23:51 WBC RBC Hgb Hct MCH MCHC RDW Plt Count Lymph % (Auto) Terrell % (Auto) Terrell # (Auto) Seg Neutrophils % Seg Neuts % (Manual) Lymphocytes % (Manual) Seg Neutrophils # Seg Neutrophils # Man Lymphocytes # (Manual) PT INR Heparin Anti-Xa Level ABG pH POC ABG pCO2 POC ABG pO2 ABG pO2 ABG HCO3 ABG O2 Saturation ABG Base Excess ABG Hemoglobin ABG Oxyhemoglobin ABG Potassium ABG Glucose Oxyhemoglobin Carboxyhemoglobin Sodium Potassium Chloride Carbon Dioxide BUN Creatinine Glucose POC Glucose 127 H 118 H 121 H Lactic Acid Calcium Phosphorus Magnesium Total Bilirubin Direct Bilirubin AST Total Creatine Kinase C-Reactive Protein NT-Pro-B Natriuret Pep Total Protein Albumin Triglycerides Arterial Blood Glucose Urine WBC (Auto) Salicylates Acetaminophen 06/09/21 06/09/21 06/09/21 05:10 05:10 05:38 WBC RBC Hgb 10.3 L Hct 32.9 L MCH 27 L MCHC 31 L RDW 15.9 H Plt Count 533 H Lymph % (Auto) Terrell % (Auto) Terrell # (Auto) Seg Neutrophils % Seg Neuts % (Manual) Lymphocytes % (Manual) Seg Neutrophils # Seg Neutrophils # Man Lymphocytes # (Manual) PT INR Heparin Anti-Xa Level ABG pH POC ABG pCO2 POC ABG pO2 ABG pO2 ABG HCO3 ABG O2 Saturation ABG Base Excess ABG Hemoglobin ABG Oxyhemoglobin ABG Potassium ABG Glucose Oxyhemoglobin Carboxyhemoglobin Sodium Potassium 3.3 L Chloride 107.9 H Carbon Dioxide BUN Creatinine 0.6 L Glucose 157 H POC Glucose 149 H Lactic Acid Calcium 8.1 L Phosphorus Magnesium Total Bilirubin Direct Bilirubin AST Total Creatine Kinase C-Reactive Protein NT-Pro-B Natriuret Pep Total Protein Albumin Triglycerides Arterial Blood Glucose Urine WBC (Auto) Salicylates Acetaminophen Allied health notes reviewed: nursing
[2021-06-09] MEDS: HALOPERIDOL LACTATE 5 MG/1 ML INJ IV PRN (16:32)
--- NOTE | 2021-06-09 16:36 | Progress Note ---
Assessment and Plan Patient is a 40-year-old male with a past medical history of HFrEF (EF 15%) and methamphetamine dependence who was brought to the ED after being found unresponsive on 05/13/2021. Acute hypoxic respiratory failure-pulmonology following Drug overdose Acute on chronic HFrEF Sepsis Bilateral pneumonia DVT BRYNN-Nephrology following Rhabdomyolysis Hypernatremia Echo 05/25/2021-EF 20 to 25%. Severe global hypokinesis of left ventricle. Left ventricle is moderately dilated. Doppler flow suggests impaired LV relaxation. Moderate mitral regurgitation. No pericardial effusion Cardiac cath 08/04/2020-Angiographically normal coronary arteries. This is indicative of a nonischemic cardiomyopathy. Mildly elevated biventricular filling pressures with normal cardiac index TTE, complete 08/02/20:LVEF is 18%,Severe global LV hypokinesis. Normal LV diastolic function. LA mildly dilated. Moderate mitral regurgitation with an eccentric MR jet(s),No previous echocardiogram for comparison. Outpatient medications: Coreg 6.25 mg p.o. twice daily, Lasix 40 mg p.o. daily, lisinopril 5 mg p.o. daily Plan: Continue to hold RAMYA and ARB due low BP Continue Coreg 6.25 mg p.o. twice daily Agree with continuing Lasix 20 mg p.o. Patient seen in conjunction with Dr. Meyers who agrees with this plan of care - Patient Problems (1) Acute on chronic HFrEF (heart failure with reduced ejection fraction) Current Visit: Yes Status: Acute (2) PNA (pneumonia) Current Visit: Yes Status: Acute (3) Acute encephalopathy Current Visit: Yes Status: Acute (4) Acute respiratory failure Current Visit: Yes Status: Acute Qualifiers: Respiratory failure complication: hypoxia Qualified Code(s): J96.01 - Acute respiratory failure with hypoxia (5) Overdose by ingestion Current Visit: Yes Status: Acute Subjective Date of service: 06/09/21 Principal diagnosis: Overdose Interval history: Patient s/p trach and PEG. Awake and off sedation Sinus 80s on monitor Objective Vital Signs Temp Pulse Pulse Resp BP Pulse Ox Pulse Ox 06/09/21 14:00 88 29 H 93/43 100 06/09/21 13:53 98.9 F 06/09/21 13:30 96 H 21 136/60 06/09/21 13:00 106 H 18 108/63 06/09/21 12:30 90 17 106/64 06/09/21 12:04 84 84 25 H 100 06/09/21 12:00 88 19 97/60 100 06/09/21 11:30 72 17 97/60 100 06/09/21 11:00 76 26 H 104/67 97 06/09/21 10:30 75 20 121/73 100 06/09/21 10:21 74 121/73 06/09/21 10:00 104 H 16 114/77 06/09/21 09:30 20 110/68 98 06/09/21 09:00 95 H 17 113/59 100 06/09/21 08:30 84 17 118/61 100 06/09/21 08:16 85 85 25 H 99 06/09/21 08:00 71 28 H 109/65 98 06/09/21 07:38 98 06/09/21 07:34 67 109/65 98 06/09/21 07:30 72 27 H 113/73 99 06/09/21 07:00 72 18 113/73 100 06/09/21 06:30 86 30 H 103/59 100 06/09/21 06:00 89 17 101/72 100 06/09/21 05:30 85 18 107/62 100 06/09/21 05:00 82 17 107/62 98 06/09/21 04:30 75 17 109/60 100 06/09/21 04:18 100 06/09/21 04:00 72 70 29 H 108/63 99 06/09/21 03:30 72 23 110/68 100 06/09/21 03:00 68 27 H 113/67 100 06/09/21 02:30 67 30 H 115/66 100 06/09/21 02:00 70 21 111/62 100 06/09/21 01:30 68 28 H 114/61 100 06/09/21 01:00 70 25 H 114/61 99 06/09/21 00:30 84 24 116/73 99 06/09/21 00:04 78 19 116/73 99 06/09/21 00:00 98.4 F 69 70 14 105/63 100 06/08/21 23:30 69 19 117/70 100 06/08/21 23:00 70 19 109/69 98 06/08/21 22:30 69 23 115/71 99 06/08/21 22:00 70 23 116/75 99 06/08/21 21:30 71 32 H 117/69 99 06/08/21 21:06 75 120/76 06/08/21 21:00 71 26 H 115/73 100 06/08/21 20:42 75 120/76 100 06/08/21 20:30 80 15 118/72 100 06/08/21 20:00 99.2 F 79 70 20 116/68 100 06/08/21 19:30 80 31 H 116/68 99 06/08/21 19:00 82 31 H 140/96 06/08/21 18:30 97 H 31 H 140/96 100 06/08/21 18:00 87 21 112/63 98 06/08/21 17:30 74 26 H 112/63 100 06/08/21 17:00 74 28 H 115/69 100 - Physical Examination General: No Apparent Distress HEENT: Positive: Normocephaly Neck: Positive: neck supple, trachea midline. Negative: JVD/HJR Cardiac: Positive: Reg Rate and Rhythm Lungs: Positive: Ventilated Respirations Neuro: Positive: Grossly Intact Abdomen: Positive: Soft Skin: Negative: Rash Extremities: Present: warm. Absent: edema - Labs and Meds CBC 06/09/21 Range/Units 05:10 WBC 8.9 (4.5-11.0) K/mm3 RBC 3.81 (3.65-5.03) M/mm3 Hgb 10.3 L (11.8-15.2) gm/dl Hct 32.9 L (35.5-45.6) % Plt Count 533 H (140-440) K/mm3 Comprehensive Metabolic Panel 06/09/21 Range/Units 05:10 Sodium 142 (137-145) mmol/L Potassium 3.3 L (3.6-5.0) mmol/L Chloride 107.9 H (98-107) mmol/L Carbon Dioxide 27 (22-30) mmol/L BUN 13 (9-20) mg/dL Creatinine 0.6 L (0.8-1.3) mg/dL Glucose 157 H (75-100) mg/dL Calcium 8.1 L (8.4-10.2) mg/dL - Imaging and Cardiology EKG: report reviewed, image reviewed Echo: report reviewed Cardiac cath: report reviewed - Telemetry EKG Rhythm: Sinus Rhythm - EKG Sinus rhythms and dysrhythmias: sinus rhythm, sinus tachycardia Ventricular dysrhythmias: ventricular premature com Repolarization changes or abnormalities: nonspecific abnormality, ST segment, and/or T wave - Allied health notes Allied health notes reviewed: nursing
--- NOTE | 2021-06-09 18:02 | Progress Note ---
<RISSA DAHL - Last Filed: 06/09/21 17:55> Assessment and Plan Assessment and plan: This is a 40-year-old male with known history of HFrEF, methamphetamine dependence, and nicotine dependence admitted for drug overdose and acute metabolic encephalopathy. Patient went into respiratory failure and was intubated requiring ventilatory support s/p trach and PEG. Hospital Course to date: 05/25/2021: Worsening interstitial infiltrates. unclear if this is a developing pneumonia from aspiration/volume overload. Empiric abx coverage. ECHO with bubble study ordered. Placed on iv abx. kidney function improving. 05/26/2021: Tachycardic on levo gtt, advised RN to titrate down as long as MAP > 65. HR improved on my follow up encounter. PCCM titrating vent down. Renal function improving....Cr now 1.3. No indication for CLOTH CALENDER at this time per nephro. 05/27/2021: Extubated yesterday however in respiratory distress, re-intubated. Patient has severe systolic heart failure. Cardiology consulted for severe systolic heart failure. Will need to discuss optimal strategy regarding diuresis. 05/28: Patient remains on the vent. Febrile overnight, no longer on IV abx, leukocytosis improved, will panculture patient for now hold off on IV Abx. D/W CCM plan to wean sedation, depends on patient's mental status possible extubation today. Patient with low EF 20 to 25%, IVF D/nickolas. FWF for hypernatrenia, repeat lab in the am. 05/29- With increased agitation and tachycardia, maxed out on precedex and fentanyl gtt. Patient appears to be in withdrawal, Ativan added. Remains febrile, off pressors this am, leukocytosis improved. Continue to f/u on culture data. Hypernatremia this am, on D5w per nephro, electrolyte repleted, repeat labs in the am 05/30: Patient very aggresive this am maxed on sedation, X1 dose of Geodeon ordered. Now on low dose Levophed, patient still with low grade fevers this am. Hypotension is probably r/t sedation. Recent cultures with NGTD, UA negative. Continue to monitor for now. Na improved, IVF off this and K repleted, repeat labs in the am. 05/31: Patient was extubated today, IV fluid discontinued, given Lasix per cardiology, increasing free water flush. Weaned off Levophed. Patient noted to be lethargic several hours post Precedex infusion discontinuation. Patient extubated to BiPAP after given racemic epinephrine. Patient remains lethargic and off of BiPAP will consider CT head in the a.m. 06/01: Patient remained on BiPAP overnight, given agitation as needed Haldol/Ativan and Benadryl given while patient remained maxed on Precedex. Given increased work of breathing and tachypnea patient was electively reintubated. Free water flushes/tube feeding/p.o. medications to restart upon c onfirmation of DHT. Lasix stopped per cardiology recommendations. CT head ordered. 06/02: Started on midodrine 3 times daily per cardiology as patient has soft blood pressures and required Levophed overnight. Upper extremity with PICC noted to have significant swelling and possible discoloration around insertion site. Ordered RN to remove PICC and use peripheral IVs as patient does not have any medications requiring central access at this time. Hypernatremia worsened however patient did not receive multiple doses of free water flush while on continuous BiPAP. [facility] made vent changes. Surgery consulted. 06/03: Patient noted to have an acute DVT in right upper extremity and started on heparin drip. technical cable jointer noted possible foreign object retained and vascular surgery was consulted. Obtain CT of upper extremity. Surgery was consulted for trach/PEG. Patient remains on max doses of fentanyl, propofol and Precedex. Versed added. Started on Unasyn. MRI brain ordered. 06/04: Patient received a trach/PEG today, remains on propofol, Versed, fentanyl. Heparin drip off and tube feeding off for surgery. 06/05: Tracheal aspirate grew Enterobacter which is sensitive to ampicillin which the patient was still on. Slight hypokalemia noted reduce repleted. Patient remains on Precedex, propofol and Versed for sedation. Bilateral soft restraints in place. [facility] will hold off weaning trials as patient is still not adequate sedated. Heparin drip resumed. 06/06: Started on Seroquel twice daily in efforts to wean off sedation. Hypernatremia and hyperchloremia noted and free water flush increased, potassium and magnesium repleted. 06/07: Back on sedation overnight due to increase agitation. Plan to wean off propofol, continue daily PST. No longer of pressors, BB and lasix resumed to prevent worsening pulmonary edema/worse pulmonary status. AC was also switched to PO Elquis for DVT. Possible LTAC placement, case management to arrange. 06/08: Patient is more alert today, following simple commands. Remains on fentanyl and precedes gtt. Plan is to wean off fentanyl today for possible PST. Case management to arrange placement. 06/09: Patient has been off fentanyl gtt, still on precedex gtt. Tolerating PST today, plan to continue PST as long patient can tolerate it today. Okay to rest patient on the vent overnight. Electrolytes repleted, repeat labs in the am. Case management to arrange possible placement. Assessment and Plan #Acute hypoxic respiratory failure #Bilateral Pneumonia #Possible Aspiration - Intially Intubated in the ED on 05/23 for airway protection - Extubated and reintubated on 05/27 for respiratory distress - Extubated on 05/31, was reintubated on 06/01 - 06/04 s/p Trach and PEG by Gen Surgery - Vent Setting:PS-30%,6 PS-10 - Okay to rest patient on the vent overnight - CCM consulted, appreciate recommendations - Continue Nebs per CCM - VAP bundle addressed - Aspiration precaution HOB above 30 - Daily SBT as tolerated - PRN ABG and CXR per CCM - Continue SPO2 monitoring for SPO2 goal above 92% - Plan for possible LTAC placement- Case management to arrange #HFrEF #Cardiomegaly - Cardiology on consult, appreciated recommendations - 05/25/2021: Echo- EF 20 to 25%. Severe global hypokinesis of left ventricle. Left ventricle is moderately dilated. Doppler flow suggests impaired LV relaxation. Moderate mitral regurgitation. No pericardial effusion - 08/04/2020: Cardiac cath- Angiographically normal coronary arteries. This is indicative of a nonischemic cardiomyopathy. Mildly elevated biventricular filling pressures with normal cardiac index - 08/02/2020: Echo- EF 18%,Severe global LV hypokinesis. Normal LV diastolic function. LA mildly dilated. Moderate mitral regurgitation with an eccentric MR jet(s),No previous echocardiogram for comparison. - Patient is off pressors - BP normalized, midodrine has been held - BB and Lasix resumed - Continue blood pressure monitor per protocol - Maintain MAP above 65 #Acute Toxic Metabolic Encephalopathy #Overdose by Ingestion #H/o Polysubstance Abuse - amphetamines in tox screen - remains on precedex gtt - On Seroquel - Continue PRN Ativan and Haldol fro agitation - Titrate sedation for RASS goal of 0 to -1 - Prn analgesia for CPOT greater than 3 - Maintenance of sleep-wake cycle #Acute Kidney Injury due to Acute Tubular Necrosis #Hypokalemia #Hypernatremia-improved - Cr: 3.5 on 03/24, baseline 0.9. suspect dehydration vs toxic exposure vs rhabdo - Renal function improved with IV hydration - Nephrology on consult, appreciated recommendation - Strict intake and output - Daily weight - Avoid nephrotoxic medications; Renally dose medications - Monitor and replace electrolytes as needed - Trend BMP #Sepsis POA #Sinusitis #Bilateral Pneumonia #Lactic Acidosis - febrile, elevated lactic, source likely pulmonary - COVID PCR neg - UA is negative. Blood culture & Urine culture NGTD - 06/02 sputum culture + enterobacter - Continue IV Abx-Unasyn - Continue to F/U on B.cult - Daily CBC monitor - Consider ID consult if with persistent fever or/and if leukocytosis reoccur #Acute Right Upper Extremity DVT #C/f Possible Retained foreign object in right upper extremity - Noted on right upper extremity Doppler - C/f Possible Retained foreign object in right upper extremity - Vascular Surgery was consulted - Bedside ultrasound by Vascular revealed possible fibrin sheath - CT of Right upper extremity shows no retained object - On Heparin drip- switch to PO Eliquis - #GI/DVT Prophylaxis - Continue PPI- pepcid - Switched AC to Eliquis - SCDs to bilateral lower extremities while in bed The high probability of a clinically significant, sudden or life threatening deterioration of the [multiple] system(s) required my full and direct attention, intervention and personal management. The aggregate critical care time was [60] minutes. This time is in addition to time spent performing reported procedures but includes the following: [x] Data Review and interpretation [x] Patient assessment and monitoring of vital signs [x] Documentation [x] Medication orders and management Disposition Plan: ICU Total Time Spent with Patient (Minutes): 60 History Interval history: Patient seen and examined at the bedside. Remains on the vent, awake and alert, still with periods of agitation requiring PRN IV Ativan. Remains on precedex gtt. INDERJIT overnight Hospitalist Physical - Constitutional Vitals: Temp Pulse Resp BP Pulse Ox 98.9 F 95 H 29 H 148/83 97 06/09/21 13:53 06/09/21 17:00 06/09/21 17:00 06/09/21 17:00 06/09/21 17:00 General appearance: Present: no acute distress, obese - EENT Eyes: Present: PERRL, EOM intact ENT: hearing intact - Neck Neck: Present: normal ROM - Respiratory Respiratory effort: normal Respiratory: bilateral: rhonchi - Cardiovascular Rhythm: regular Heart Sounds: Present: S1 & S2 - Extremities Extremities: no ischemia, pulses intact, pulses symmetrical Extremity abnormal: edema - Peripheral Assessment Generalized Edema Type: Pitting Edema Degree: 2+ Capillary Refill: < 3 seconds Skin Temperature: Warm Peripheral Pulses: within normal limits - Abdominal General gastrointestinal: soft, non-distended, normal bowel sounds - Integumentary Integumentary: Present: warm, dry - Psychiatric Psychiatric: cooperative, other (With periods of agitation) - Neurologic Neurologic: moves all extremities - Allied Health Allied health notes reviewed: nursing, case management HEART Score - HEART Score Troponin: Troponin T < 0.010 ng/mL (0.00-0.029) 05/23/21 09:38 Results - Labs CBC & Chem 7: 06/09/21 05:10 06/09/21 05:10 Labs: Laboratory Last Values WBC 8.9 K/mm3 (4.5-11.0) 06/09/21 05:10 RBC 3.81 M/mm3 (3.65-5.03) 06/09/21 05:10 Hgb 10.3 gm/dl (11.8-15.2) L 06/09/21 05:10 Hct 32.9 % (35.5-45.6) L 06/09/21 05:10 MCV 86 fl (84-94) 06/09/21 05:10 MCH 27 pg (28-32) L 06/09/21 05:10 MCHC 31 % (32-34) L 06/09/21 05:10 RDW 15.9 % (13.2-15.2) H 06/09/21 05:10 Plt Count 533 K/mm3 (140-440) H 06/09/21 05:10 Lymph % (Auto) 11.2 % (13.4-35.0) L 05/28/21 10:05 Dawson % (Auto) 8.6 % (0.0-7.3) H 05/28/21 10:05 Eos % (Auto) 0.8 % (0.0-4.3) 05/28/21 10:05 Baso % (Auto) 0.5 % (0.0-1.8) 05/28/21 10:05 Lymph # (Auto) 1.3 K/mm3 (1.2-5.4) 05/28/21 10:05 Dawson # (Auto) 1.0 K/mm3 (0.0-0.8) H 05/28/21 10:05 Eos # (Auto) 0.1 K/mm3 (0.0-0.4) 05/28/21 10:05 Baso # (Auto) 0.1 K/mm3 (0.0-0.1) 05/28/21 10:05 Add Manual Diff Complete 05/27/21 03:18 Total Counted 100 05/27/21 03:18 Seg Neutrophils % 78.9 % (40.0-70.0) H 05/28/21 10:05 Seg Neuts % (Manual) 92.0 % (40.0-70.0) H 05/27/21 03:18 Band Neutrophils % 0 % 05/27/21 03:18 Lymphocytes % (Manual) 5.0 % (13.4-35.0) L 05/27/21 03:18 Reactive Lymphs % (Man) 0 % 05/27/21 03:18 Monocytes % (Manual) 3.0 % (0.0-7.3) 05/27/21 03:18 Eosinophils % (Manual) 0 % (0.0-4.3) 05/27/21 03:18 Basophils % (Manual) 0 % (0.0-1.8) 05/27/21 03:18 Metamyelocytes % 0 % 05/27/21 03:18 Myelocytes % 0 % 05/27/21 03:18 Promyelocytes % 0 % 05/27/21 03:18 Blast Cells % 0 % 05/27/21 03:18 Nucleated RBC % Not Reportable 05/27/21 03:18 Seg Neutrophils # 9.0 K/mm3 (1.8-7.7) H 05/28/21 10:05 Seg Neutrophils # Man 19.8 K/mm3 (1.8-7.7) H 05/27/21 03:18 Band Neutrophils # 0.0 K/mm3 05/27/21 03:18 Lymphocytes # (Manual) 1.1 K/mm3 (1.2-5.4) L 05/27/21 03:18 Abs React Lymphs (Man) 0.0 K/mm3 05/27/21 03:18 Monocytes # (Manual) 0.6 K/mm3 (0.0-0.8) 05/27/21 03:18 Eosinophils # (Manual) 0.0 K/mm3 (0.0-0.4) 05/27/21 03:18 Basophils # (Manual) 0.0 K/mm3 (0.0-0.1) 05/27/21 03:18 Metamyelocytes # 0.0 K/mm3 05/27/21 03:18 Myelocytes # 0.0 K/mm3 05/27/21 03:18 Promyelocytes # 0.0 K/mm3 05/27/21 03:18 Blast Cells # 0.0 K/mm3 05/27/21 03:18 WBC Morphology Not Reportable 05/27/21 03:18 Hypersegmented Neuts Not Reportable 05/27/21 03:18 Hyposegmented Neuts Not Reportable 05/27/21 03:18 Hypogranular Neuts Not Reportable 05/27/21 03:18 Smudge Cells Not Reportable 05/27/21 03:18 Toxic Granulation Not Reportable 05/27/21 03:18 Toxic Vacuolation Not Reportable 05/27/21 03:18 Dohle Bodies Not Reportable 05/27/21 03:18 Pelger-Huet Anomaly Not Reportable 05/27/21 03:18 Glenn Rods Not Reportable 05/27/21 03:18 Platelet Estimate Consistent w auto 05/27/21 03:18 Clumped Platelets Not Reportable 05/27/21 03:18 Plt Clumps, EDTA Not Reportable 05/27/21 03:18 Large Platelets Not Reportable 05/27/21 03:18 Giant Platelets Not Reportable 05/27/21 03:18 Platelet Satelliting Not Reportable 05/27/21 03:18 Plt Morphology Comment Not Reportable 05/27/21 03:18 RBC Morphology Normal 05/27/21 03:18 Dimorphic RBCs Not Reportable 05/27/21 03:18 Polychromasia Not Reportable 05/27/21 03:18 Hypochromasia Not Reportable 05/27/21 03:18 Poikilocytosis Not Reportable 05/27/21 03:18 Anisocytosis Not Reportable 05/27/21 03:18 Microcytosis Not Reportable 05/27/21 03:18 Macrocytosis Not Reportable 05/27/21 03:18 Spherocytes Not Reportable 05/27/21 03:18 Pappenheimer Bodies Not Reportable 05/27/21 03:18 Sickle Cells Not Reportable 05/27/21 03:18 Target Cells Not Reportable 05/27/21 03:18 Tear Drop Cells Not Reportable 05/27/21 03:18 Ovalocytes Not Reportable 05/27/21 03:18 Helmet Cells Not Reportable 05/27/21 03:18 Maravilla-Dunmore Bodies Not Reportable 05/27/21 03:18 [place] Rings Not Reportable 05/27/21 03:18 [place] Cells Not Reportable 05/27/21 03:18 Bite Cells Not Reportable 05/27/21 03:18 Crenated Cell Not Reportable 05/27/21 03:18 Elliptocytes Not Reportable 05/27/21 03:18 Acanthocytes (Spur) Not Reportable 05/27/21 03:18 Rouleaux Not Reportable 05/27/21 03:18 Hemoglobin C Crystals Not Reportable 05/27/21 03:18 Schistocytes Not Reportable 05/27/21 03:18 Malaria parasites Not Reportable 05/27/21 03:18 Frandy Bodies Not Reportable 05/27/21 03:18 Hem Pathologist Commnt No 05/27/21 03:18 PT 14.2 Sec. (12.2-14.9) 06/07/21 10:50 INR 0.99 (0.87-1.13) 06/07/21 10:50 APTT 36.1 Sec. (24.2-36.6) 06/03/21 Unknown Heparin Anti-Xa Level 0.34 U.I./ml (0.3-0.7) 06/07/21 10:50 ABG pH 7.406 (7.320-7.450) 06/04/21 04:00 POC ABG pCO2 51.5 mmHg (32.0-48.0) H 06/04/21 04:00 ABG pCO2 54.4 mm Hg 06/02/21 05:42 POC ABG pO2 61.7 mmHg (83-108) L 06/04/21 04:00 ABG pO2 141.2 mm Hg (80.0-90.0) H 06/02/21 05:42 POC ABG HCO3 31.6 06/04/21 04:00 ABG HCO3 30.6 mmol/L (20.0-26.0) H 06/02/21 05:42 ABG O2 Saturation 92.7 (0-100) 06/04/21 04:00 ABG O2 Content 16.6 (0.0-44) 06/02/21 05:42 POC ABG Base Excess 5.7 06/04/21 04:00 ABG Base Excess 4.1 mmol/L (-2.0-3.0) H 06/02/21 05:42 ABG Hemoglobin 12.7 (12.0-17.5) 06/04/21 04:00 ABG Oxyhemoglobin 90.9 (94-98) L 06/04/21 04:00 ABG Carboxyhemoglobin 1.5 % (0.0-5.0) 06/02/21 05:42 ABG Methemoglobin 0.3 (0.0-1.5) 06/04/21 04:00 ABG Sodium 137.9 mmol/L (136.0-145.0) 05/24/21 03:44 ABG Potassium 5.6 mmol/L (3.40-4.50) H 05/24/21 03:44 ABG Chloride 105.0 mmol/L (98-107) 05/24/21 03:44 ABG Glucose 53 mg/dL (65-95) L 05/24/21 03:44 Oxyhemoglobin 96.7 % (95.0-99.0) 06/02/21 05:42 Carboxyhemoglobin 1.6 (0.5-1.5) H 06/04/21 04:00 FiO2 50 % 06/02/21 05:42 FiO2 % 35.0 06/04/21 04:00 Sodium 142 mmol/L (137-145) 06/09/21 05:10 Potassium 3.3 mmol/L (3.6-5.0) L 06/09/21 05:10 Chloride 107.9 mmol/L (98-107) H 06/09/21 05:10 Carbon Dioxide 27 mmol/L (22-30) 06/09/21 05:10 Anion Gap 10 mmol/L 06/09/21 05:10 BUN 13 mg/dL (9-20) 06/09/21 05:10 Creatinine 0.6 mg/dL (0.8-1.3) L 06/09/21 05:10 Estimated GFR > 60 ml/min 06/09/21 05:10 BUN/Creatinine Ratio 22 % 06/09/21 05:10 Glucose 157 mg/dL (75-100) H 06/09/21 05:10 POC Glucose 134 mg/dL (70-105) H 06/09/21 11:49 Lactic Acid 2.10 mmol/L (0.7-2.0) H* 05/28/21 10:05 Calcium 8.1 mg/dL (8.4-10.2) L 06/09/21 05:10 Phosphorus 3.00 mg/dL (2.5-4.5) 06/09/21 05:10 Magnesium 1.70 mg/dL (1.7-2.3) 06/09/21 05:10 Total Bilirubin 2.90 mg/dL (0.1-1.2) H 06/02/21 20:00 Direct Bilirubin 2.4 mg/dL (0-0.2) H 06/02/21 07:41 Indirect Bilirubin 0.9 mg/dL 06/02/21 07:41 AST 53 units/L (5-40) H 06/02/21 20:00 ALT 30 units/L (7-56) 06/02/21 20:00 Alkaline Phosphatase 115 units/L (35-129) 06/02/21 20:00 Total Creatine Kinase 556 units/L (55-170) H 05/24/21 09:35 Troponin T < 0.010 ng/mL (0.00-0.029) 05/23/21 09:38 C-Reactive Protein 34.80 mg/dL (0.00-1.30) H 05/28/21 10:05 NT-Pro-B Natriuret Pep 6058 pg/mL (0-450) H 05/23/21 09:38 Total Protein 6.2 g/dL (6.3-8.2) L 06/02/21 20:00 Albumin 1.8 g/dL (3.9-5) L 06/02/21 20:00 Albumin/Globulin Ratio 0.4 % 06/02/21 20:00 Triglycerides 142 mg/dL (2-149) 06/07/21 Unknown Procalcitonin 0.25 ng/mL (<0.15) 06/08/21 04:42 Arterial Blood Glucose 53 mg/dL (65-95) L 05/24/21 03:44 Arterial Blood Ionized Calcium 4.6 mg/dL (4.6-5.3) 05/24/21 03:44 Urine Color Sherri (Yellow) 05/28/21 12:20 Urine Turbidity Clear (Clear) 05/28/21 12:20 Urine pH 6.0 (5.0-7.0) 05/28/21 12:20 Ur Specific [place] 1.017 (1.003-1.030) 05/28/21 12:20 Urine Protein 30 mg/dl mg/dL (Negative) 05/28/21 12:20 Urine Glucose (UA) Neg mg/dL (Negative) 05/28/21 12:20 Urine Ketones Neg mg/dL (Negative) 05/28/21 12:20 Urine Blood Mod (Negative) 05/28/21 12:20 Urine Nitrite Neg (Negative) 05/28/21 12:20 Urine Bilirubin Mod (Negative) 05/28/21 12:20 Urine Ictotest Positive (Negative) 05/28/21 12:20 Urine Urobilinogen 4.0 mg/dL (<2.0) 05/28/21 12:20 Ur Leukocyte Esterase Neg (Negative) 05/28/21 12:20 Urine WBC (Auto) 3.0 /HPF (0.0-6.0) 05/28/21 12:20 Urine RBC (Auto) 4.0 /HPF (0.0-6.0) 05/28/21 12:20 U Epithel Cells (Auto) < 1.0 /HPF (0-13.0) 05/28/21 12:20 Urine Bacteria (Auto) 1+ /HPF (Negative) 05/28/21 12:20 Urine Mucus Few /HPF 05/28/21 12:20 Urine Yeast (Budding) 1+ /HPF 05/24/21 Unknown Salicylates < 0.3 mg/dL (2.8-20.0) L 05/23/21 09:38 Urine Opiates Screen Negative 05/23/21 09:41 Urine Methadone Screen Negative 05/23/21 09:41 Acetaminophen 5.0 ug/mL (10.0-30.0) L 05/23/21 09:38 Ur Barbiturates Screen Negative 05/23/21 09:41 Ur Phencyclidine Scrn Negative 05/23/21 09:41 Ur Amphetamines Screen Positive 05/23/21 09:41 U Benzodiazepines Scrn Negative 05/23/21 09:41 Urine Cocaine Screen Negative 05/23/21 09:41 U Marijuana (THC) Screen Negative 05/23/21 09:41 Drugs of Abuse Note Disclamer 05/23/21 09:41 Coronavirus (PCR) Negative (Negative) 05/26/21 08:14 Hepatitis A IgM Ab Non-reactive (NonReactive) 05/27/21 16:00 Hep Bs Antigen Non-reactive (Negative) 05/27/21 16:00 Hep B Core IgM Ab Non-reactive (NonReactive) 05/27/21 16:00 Hepatitis C Antibody Non-reactive (NonReactive) 05/27/21 16:00 Fajardo/IV: Voiding Method Indwelling Catheter Active Medications - Current Medications Current Medications: Generic Name Dose Route Start Last Admin Trade Name Freq PRN Reason Stop Dose Admin Acetaminophen 650 mg 05/23/21 11:43 05/31/21 03:22 Acetaminophen 650 Mg Rect Supp NE 650 mg Q6H PRN Administration Pain MILD(1-3)/Fever >100.5/EPSTEIN Lipase/Protease/Amylase 1 each 05/29/21 08:45 Lipase 10,500/Protease 25,000/Amylase 43,750 (Units) Dr Mitchell FEEDTUBE PRN PRN For Clogged Feeding Tube Apixaban 10 mg 06/07/21 15:00 06/09/21 10:21 Apixaban 5 Mg Tab PO 06/13/21 22:01 10 mg Q12HR MARK Administration Protocol Apixaban 5 mg 06/14/21 10:00 Apixaban 5 Mg Tab PO Q12HR MARK Protocol Carvedilol 6.25 mg 06/07/21 12:00 06/09/21 10:21 Carvedilol 6.25 Mg Tab FEEDTUBE 6.25 mg BID MARK Administration Dextrose 0 ml 05/31/21 10:47 Dextrose 10% *Hypoglycemia IV PRN PRN Hypoglycemia Famotidine 40 mg 06/02/21 22:00 06/08/21 21:07 Famotidine 20 Mg Tab FEEDTUBE 40 mg QHS MARK Administration Fentanyl 50 mcg 06/01/21 12:29 Fentanyl 100 Mcg/2 Ml Inj IV Q10MIN PRN ANALGESIA Furosemide 20 mg 06/07/21 12:00 06/09/21 10:21 Furosemide 20 Mg Tab FEEDTUBE 20 mg BID MARK Administration Haloperidol Lactate 5 mg 05/30/21 12:18 06/09/21 16:32 Haloperidol Lactate 5 Mg/1 Ml Inj IV 5 mg Q6H PRN Administration Agitation Hydrophilic Ointment 1 applic 06/01/21 12:30 Lip Therapy Vaseline TP Q2HR PRN Dry Lips Dexmedetomidine HCl 400 mcg/ 104 mls @ 5.307 mls/hr 05/24/21 05:00 06/09/21 13:58 Sodium Chloride IV 1 mcg/kg/hr TITRATE MARK 26.535 mls/hr Administration Protocol 0.2 MCG/KG/HR Fentanyl Citrate 2,000 mcg in 100 mls @ 5.103 mls/hr 06/01/21 13:00 06/08/21 11:24 Fentanyl Drip Premix IV 0 mcg/kg/hr TITR MARK 0 mls/hr Titration Protocol 1 MCG/KG/HR Ampicillin Sodium/Sulbactam Sodium 3 gm in 100 mls @ 200 mls/hr 06/03/21 11:00 06/09/21 10:55 Unasyn/Ns 3 Gm/100 Ml IV 06/10/21 05:29 Infused Q6H MARK Infusion Protocol Lorazepam 2 mg 05/31/21 11:00 06/09/21 16:32 Lorazepam 2 Mg/Ml Vial IV 2 mg Q4H PRN Administration Agitation Multi-Ingred Cream/Lotion/Oil/Oint 1 applic 06/01/21 12:30 Mineral Oil/Petrolatum, White Ophth Oint 3.5 Gm OU Q4HR PRN Dry Eye(s) Ondansetron HCl 4 mg 05/23/21 11:43 Ondansetron 4 Mg/2 Ml Inj IV Q8H PRN Nausea And Vomiting Quetiapine Fumarate 75 mg 06/07/21 22:00 06/09/21 10:21 Quetiapine 25 Mg Tab PO 75 mg BID MARK Administration Senna/Docusate Sodium 1 tab 06/01/21 22:00 06/09/21 10:21 Sennosides/Docusate Sodium 8.6/50 Mg Tab FEEDTUBE 1 tab BID MARK Administration Simple Syrup 15 ml 05/29/21 08:45 Simple Syrup 15 Ml FEEDTUBE PRN PRN Hypoglycemia Simple Syrup 30 ml 05/29/21 08:45 Simple Syrup 15 Ml FEEDTUBE PRN PRN Hypoglycemia Sodium Bicarbonate 325 mg 05/29/21 08:45 Sodium Bicarbonate 325 Mg Tab FEEDTUBE PRN PRN For Clogged Feeding Tube Sodium Chloride 10 ml 05/23/21 22:00 06/09/21 10:22 Sodium Chloride 0.9% 10 Ml Flush Syringe IV 10 ml BID MARK Administration Sodium Chloride 10 ml 05/23/21 11:43 Sodium Chloride 0.9% 10 Ml Flush Syringe IV PRN PRN LINE FLUSH Sodium Chloride 10 ml 05/31/21 09:50 06/01/21 12:32 Sodium Chloride 0.9% 50 Ml Ivpb IV 10 ml PRN PRN Administration FLUSH Vitamin B Complex/Folic Acid 1 each 05/30/21 10:00 06/09/21 10:30 Folbee Plus Cz (Folic Acid/Vit Bcomp&C/Cu/Znox) PO 1 each QDAY MARK Administration Nutrition/Malnutrition Assess - Dietary Evaluation Nutrition/Malnutrition Findings: Nutrition Notes Start: 05/28/21 12:16 Freq: Status: Active Protocol: Document 06/07/21 15:07 YURI (Rec: 06/07/21 15:17 YURI [id number]) Nutrition Notes Initial or Follow up Reassessment Current Diagnosis Heart Failure,Respiratory Failure Other Pertinent Diagnosis Acute encephalopathy, Overdose , Methamphetamine dependence Current Diet TF - Vital HP at 70ml/hr Labs/Tests Phos 2.3 Pertinent Medications Lasix, 15mmol KPhos x 1 dose, Vit B complex/Folic acid Height 6 ft Weight 102.058 kg [place] Body Weight (kg) 80.90 BMI 30.5 Weight Status Obese Subjective/Other Information Pt remains on vent support. Per RN, pt tolerating TF at goal rate and currently receiving 200ml water flush q4h. PEG and trach placed on 06/04. Percent of energy/protein needs met: 71% energy 91% pro Burn Absent Trauma Absent #1 Nutrition Diagnosis Inadequate oral intake Diagnosis Progress(for reassessment Continues documentation) Is patient on ventilator? Yes Is Patient Ambulatory and/or Out of Bed No REE-([place]. Jeor-confined to bed) [phone] Calculation Used for Recommendations 65-70% energy needs Additional Notes Energy needs: [id number] kcal/ day Pro needs 2g/kg IBW: 162g/day Fluid needs 1ml/kcal Nutrition Intervention Nutrition Support: Continue Vital HP at 70 ml/hr. Continue 200ml water flush q4h until hypernatremia resolves; then provide 50ml water flush q4h. Kcal 1,680 Protein (gm) 147 Carbohydrates (gm) 188 Fat (gm) 39 Fluid (mL) 1,404 Fiber (gm) 0 Goal #1 TF tolerance Goal #2 TF to meet 65-70% energy and at least 75% pro needs Follow-Up By: 06/11/21 Additional Comments F/U: Vent status, Na lab/water flush <LUZ LEE - Last Filed: 06/10/21 07:25> Assessment and Plan Assessment and plan: I saw and evaluated the patient. I agree with the findings and the plan of care as documented in the Nurse Practitioner's~note, with the following corrections and additions. Hospitalist Physical - Constitutional Vitals: Temp Pulse Resp BP Pulse Ox 98.3 F 64 24 116/68 99 06/10/21 04:00 06/10/21 06:00 06/10/21 06:00 06/10/21 06:00 06/10/21 06:12 HEART Score - HEART Score Troponin: Troponin T < 0.010 ng/mL (0.00-0.029) 05/23/21 09:38 Results - Labs CBC & Chem 7: 06/10/21 05:53 06/10/21 05:53 Labs: Laboratory Last Values WBC 10.8 K/mm3 (4.5-11.0) 06/10/21 05:53 RBC 3.68 M/mm3 (3.65-5.03) 06/10/21 05:53 Hgb 10.3 gm/dl (11.8-15.2) L 06/10/21 05:53 Hct 31.7 % (35.5-45.6) L 06/10/21 05:53 MCV 86 fl (84-94) 06/10/21 05:53 MCH 28 pg (28-32) 06/10/21 05:53 MCHC 32 % (32-34) 06/10/21 05:53 RDW 16.5 % (13.2-15.2) H 06/10/21 05:53 Plt Count 527 K/mm3 (140-440) H 06/10/21 05:53 Lymph % (Auto) 11.2 % (13.4-35.0) L 05/28/21 10:05 Dawson % (Auto) 8.6 % (0.0-7.3) H 05/28/21 10:05 Eos % (Auto) 0.8 % (0.0-4.3) 05/28/21 10:05 Baso % (Auto) 0.5 % (0.0-1.8) 05/28/21 10:05 Lymph # (Auto) 1.3 K/mm3 (1.2-5.4) 05/28/21 10:05 Dawson # (Auto) 1.0 K/mm3 (0.0-0.8) H 05/28/21 10:05 Eos # (Auto) 0.1 K/mm3 (0.0-0.4) 05/28/21 10:05 Baso # (Auto) 0.1 K/mm3 (0.0-0.1) 05/28/21 10:05 Add Manual Diff Complete 05/27/21 03:18 Total Counted 100 05/27/21 03:18 Seg Neutrophils % 78.9 % (40.0-70.0) H 05/28/21 10:05 Seg Neuts % (Manual) 92.0 % (40.0-70.0) H 05/27/21 03:18 Band Neutrophils % 0 % 05/27/21 03:18 Lymphocytes % (Manual) 5.0 % (13.4-35.0) L 05/27/21 03:18 Reactive Lymphs % (Man) 0 % 05/27/21 03:18 Monocytes % (Manual) 3.0 % (0.0-7.3) 05/27/21 03:18 Eosinophils % (Manual) 0 % (0.0-4.3) 05/27/21 03:18 Basophils % (Manual) 0 % (0.0-1.8) 05/27/21 03:18 Metamyelocytes % 0 % 05/27/21 03:18 Myelocytes % 0 % 05/27/21 03:18 Promyelocytes % 0 % 05/27/21 03:18 Blast Cells % 0 % 05/27/21 03:18 Nucleated RBC % Not Reportable 05/27/21 03:18 Seg Neutrophils # 9.0 K/mm3 (1.8-7.7) H 05/28/21 10:05 Seg Neutrophils # Man 19.8 K/mm3 (1.8-7.7) H 05/27/21 03:18 Band Neutrophils # 0.0 K/mm3 05/27/21 03:18 Lymphocytes # (Manual) 1.1 K/mm3 (1.2-5.4) L 05/27/21 03:18 Abs React Lymphs (Man) 0.0 K/mm3 05/27/21 03:18 Monocytes # (Manual) 0.6 K/mm3 (0.0-0.8) 05/27/21 03:18 Eosinophils # (Manual) 0.0 K/mm3 (0.0-0.4) 05/27/21 03:18 Basophils # (Manual) 0.0 K/mm3 (0.0-0.1) 05/27/21 03:18 Metamyelocytes # 0.0 K/mm3 05/27/21 03:18 Myelocytes # 0.0 K/mm3 05/27/21 03:18 Promyelocytes # 0.0 K/mm3 05/27/21 03:18 Blast Cells # 0.0 K/mm3 05/27/21 03:18 WBC Morphology Not Reportable 05/27/21 03:18 Hypersegmented Neuts Not Reportable 05/27/21 03:18 Hyposegmented Neuts Not Reportable 05/27/21 03:18 Hypogranular Neuts Not Reportable 05/27/21 03:18 Smudge Cells Not Reportable 05/27/21 03:18 Toxic Granulation Not Reportable 05/27/21 03:18 Toxic Vacuolation Not Reportable 05/27/21 03:18 Dohle Bodies Not Reportable 05/27/21 03:18 Pelger-Huet Anomaly Not Reportable 05/27/21 03:18 Glenn Rods Not Reportable 05/27/21 03:18 Platelet Estimate Consistent w auto 05/27/21 03:18 Clumped Platelets Not Reportable 05/27/21 03:18 Plt Clumps, EDTA Not Reportable 05/27/21 03:18 Large Platelets Not Reportable 05/27/21 03:18 Giant Platelets Not Reportable 05/27/21 03:18 Platelet Satelliting Not Reportable 05/27/21 03:18 Plt Morphology Comment Not Reportable 05/27/21 03:18 RBC Morphology Normal 05/27/21 03:18 Dimorphic RBCs Not Reportable 05/27/21 03:18 Polychromasia Not Reportable 05/27/21 03:18 Hypochromasia Not Reportable 05/27/21 03:18 Poikilocytosis Not Reportable 05/27/21 03:18 Anisocytosis Not Reportable 05/27/21 03:18 Microcytosis Not Reportable 05/27/21 03:18 Macrocytosis Not Reportable 05/27/21 03:18 Spherocytes Not Reportable 05/27/21 03:18 Pappenheimer Bodies Not Reportable 05/27/21 03:18 Sickle Cells Not Reportable 05/27/21 03:18 Target Cells Not Reportable 05/27/21 03:18 Tear Drop Cells Not Reportable 05/27/21 03:18 Ovalocytes Not Reportable 05/27/21 03:18 Helmet Cells Not Reportable 05/27/21 03:18 Maravilla-Dunmore Bodies Not Reportable 05/27/21 03:18 Corral Rings Not Reportable 05/27/21 03:18 Giorgio Cells Not Reportable 05/27/21 03:18 Bite Cells Not Reportable 05/27/21 03:18 Crenated Cell Not Reportable 05/27/21 03:18 Elliptocytes Not Reportable 05/27/21 03:18 Acanthocytes (Spur) Not Reportable 05/27/21 03:18 Rouleaux Not Reportable 05/27/21 03:18 Hemoglobin C Crystals Not Reportable 05/27/21 03:18 Schistocytes Not Reportable 05/27/21 03:18 Malaria parasites Not Reportable 05/27/21 03:18 Frandy Bodies Not Reportable 05/27/21 03:18 Hem Pathologist Commnt No 05/27/21 03:18 PT 14.2 Sec. (12.2-14.9) 06/07/21 10:50 INR 0.99 (0.87-1.13) 06/07/21 10:50 APTT 36.1 Sec. (24.2-36.6) 06/03/21 Unknown Heparin Anti-Xa Level 0.34 U.I./ml (0.3-0.7) 06/07/21 10:50 ABG pH 7.406 (7.320-7.450) 06/04/21 04:00 POC ABG pCO2 51.5 mmHg (32.0-48.0) H 06/04/21 04:00 ABG pCO2 54.4 mm Hg 06/02/21 05:42 POC ABG pO2 61.7 mmHg (83-108) L 06/04/21 04:00 ABG pO2 141.2 mm Hg (80.0-90.0) H 06/02/21 05:42 POC ABG HCO3 31.6 06/04/21 04:00 ABG HCO3 30.6 mmol/L (20.0-26.0) H 06/02/21 05:42 ABG O2 Saturation 92.7 (0-100) 06/04/21 04:00 ABG O2 Content 16.6 (0.0-44) 06/02/21 05:42 POC ABG Base Excess 5.7 06/04/21 04:00 ABG Base Excess 4.1 mmol/L (-2.0-3.0) H 06/02/21 05:42 ABG Hemoglobin 12.7 (12.0-17.5) 06/04/21 04:00 ABG Oxyhemoglobin 90.9 (94-98) L 06/04/21 04:00 ABG Carboxyhemoglobin 1.5 % (0.0-5.0) 06/02/21 05:42 ABG Methemoglobin 0.3 (0.0-1.5) 06/04/21 04:00 ABG Sodium 137.9 mmol/L (136.0-145.0) 05/24/21 03:44 ABG Potassium 5.6 mmol/L (3.40-4.50) H 05/24/21 03:44 ABG Chloride 105.0 mmol/L (98-107) 05/24/21 03:44 ABG Glucose 53 mg/dL (65-95) L 05/24/21 03:44 Oxyhemoglobin 96.7 % (95.0-99.0) 06/02/21 05:42 Carboxyhemoglobin 1.6 (0.5-1.5) H 06/04/21 04:00 FiO2 50 % 06/02/21 05:42 FiO2 % 35.0 06/04/21 04:00 Sodium 142 mmol/L (137-145) 06/10/21 05:53 Potassium 3.9 mmol/L (3.6-5.0) 06/10/21 05:53 Chloride 106.8 mmol/L (98-107) 06/10/21 05:53 Carbon Dioxide 28 mmol/L (22-30) 06/10/21 05:53 Anion Gap 11 mmol/L 06/10/21 05:53 BUN 13 mg/dL (9-20) 06/10/21 05:53 Creatinine 0.6 mg/dL (0.8-1.3) L 06/10/21 05:53 Creatinine 0.6 mg/dL (0.8-1.3) L 06/10/21 05:53 Estimated GFR > 60 ml/min 06/10/21 05:53 Estimated GFR > 60 ml/min 06/10/21 05:53 BUN/Creatinine Ratio 22 % 06/10/21 05:53 Glucose 128 mg/dL (75-100) H 06/10/21 05:53 POC Glucose 120 mg/dL (70-105) H 06/10/21 06:25 Lactic Acid 2.10 mmol/L (0.7-2.0) H* 05/28/21 10:05 Calcium 8.9 mg/dL (8.4-10.2) 06/10/21 05:53 Phosphorus 3.90 mg/dL (2.5-4.5) D 06/10/21 05:53 Magnesium 1.80 mg/dL (1.7-2.3) 06/10/21 05:53 Total Bilirubin 2.90 mg/dL (0.1-1.2) H 06/02/21 20:00 Direct Bilirubin 2.4 mg/dL (0-0.2) H 06/02/21 07:41 Indirect Bilirubin 0.9 mg/dL 06/02/21 07:41 AST 53 units/L (5-40) H 06/02/21 20:00 ALT 30 units/L (7-56) 06/02/21 20:00 Alkaline Phosphatase 115 units/L (35-129) 06/02/21 20:00 Total Creatine Kinase 556 units/L (55-170) H 05/24/21 09:35 Troponin T < 0.010 ng/mL (0.00-0.029) 05/23/21 09:38 C-Reactive Protein 34.80 mg/dL (0.00-1.30) H 05/28/21 10:05 NT-Pro-B Natriuret Pep 6058 pg/mL (0-450) H 05/23/21 09:38 Total Protein 6.2 g/dL (6.3-8.2) L 06/02/21 20:00 Albumin 1.8 g/dL (3.9-5) L 06/02/21 20:00 Albumin/Globulin Ratio 0.4 % 06/02/21 20:00 Triglycerides 142 mg/dL (2-149) 06/07/21 Unknown Procalcitonin 0.25 ng/mL (<0.15) 06/08/21 04:42 Arterial Blood Glucose 53 mg/dL (65-95) L 05/24/21 03:44 Arterial Blood Ionized Calcium 4.6 mg/dL (4.6-5.3) 05/24/21 03:44 Urine Color Sherri (Yellow) 05/28/21 12:20 Urine Turbidity Clear (Clear) 05/28/21 12:20 Urine pH 6.0 (5.0-7.0) 05/28/21 12:20 Ur Specific [place] 1.017 (1.003-1.030) 05/28/21 12:20 Urine Protein 30 mg/dl mg/dL (Negative) 05/28/21 12:20 Urine Glucose (UA) Neg mg/dL (Negative) 05/28/21 12:20 Urine Ketones Neg mg/dL (Negative) 05/28/21 12:20 Urine Blood Mod (Negative) 05/28/21 12:20 Urine Nitrite Neg (Negative) 05/28/21 12:20 Urine Bilirubin Mod (Negative) 05/28/21 12:20 Urine Ictotest Positive (Negative) 05/28/21 12:20 Urine Urobilinogen 4.0 mg/dL (<2.0) 05/28/21 12:20 Ur Leukocyte Esterase Neg (Negative) 05/28/21 12:20 Urine WBC (Auto) 3.0 /HPF (0.0-6.0) 05/28/21 12:20 Urine RBC (Auto) 4.0 /HPF (0.0-6.0) 05/28/21 12:20 U Epithel Cells (Auto) < 1.0 /HPF (0-13.0) 05/28/21 12:20 Urine Bacteria (Auto) 1+ /HPF (Negative) 05/28/21 12:20 Urine Mucus Few /HPF 05/28/21 12:20 Urine Yeast (Budding) 1+ /HPF 05/24/21 Unknown Salicylates < 0.3 mg/dL (2.8-20.0) L 05/23/21 09:38 Urine Opiates Screen Negative 05/23/21 09:41 Urine Methadone Screen Negative 05/23/21 09:41 Acetaminophen 5.0 ug/mL (10.0-30.0) L 05/23/21 09:38 Ur Barbiturates Screen Negative 05/23/21 09:41 Ur Phencyclidine Scrn Negative 05/23/21 09:41 Ur Amphetamines Screen Positive 05/23/21 09:41 U Benzodiazepines Scrn Negative 05/23/21 09:41 Urine Cocaine Screen Negative 05/23/21 09:41 U Marijuana (THC) Screen Negative 05/23/21 09:41 Drugs of Abuse Note Disclamer 05/23/21 09:41 Coronavirus (PCR) Negative (Negative) 05/26/21 08:14 Hepatitis A IgM Ab Non-reactive (NonReactive) 05/27/21 16:00 Hep Bs Antigen Non-reactive (Negative) 05/27/21 16:00 Hep B Core IgM Ab Non-reactive (NonReactive) 05/27/21 16:00 Hepatitis C Antibody Non-reactive (NonReactive) 05/27/21 16:00 [place]ardo/IV: Voiding Method Indwelling Catheter Active Medications - Current Medications Current Medications: Generic Name Dose Route Start Last Admin Trade Name Freq PRN Reason Stop Dose Admin Acetaminophen 650 mg 05/23/21 11:43 05/31/21 03:22 Acetaminophen 650 Mg Rect Supp NE 650 mg Q6H PRN Administration Pain MILD(1-3)/Fever >100.5/EPSTEIN Lipase/Protease/Amylase 1 each 05/29/21 08:45 Lipase 10,500/Protease 25,000/Amylase 43,750 (Units) Dr Mitchell FEEDTUBE PRN PRN For Clogged Feeding Tube Apixaban 10 mg 06/07/21 15:00 06/09/21 21:45 Apixaban 5 Mg Tab PO 06/13/21 22:01 10 mg Q12HR MARK Administration Protocol Apixaban 5 mg 06/14/21 10:00 Apixaban 5 Mg Tab PO Q12HR MARK Protocol Carvedilol 6.25 mg 06/07/21 12:00 06/09/21 21:45 Carvedilol 6.25 Mg Tab FEEDTUBE 6.25 mg BID MARK Administration Dextrose 0 ml 05/31/21 10:47 Dextrose 10% *Hypoglycemia IV PRN PRN Hypoglycemia Famotidine 40 mg 06/02/21 22:00 06/09/21 21:46 Famotidine 20 Mg Tab FEEDTUBE 40 mg QHS MARK Administration Fentanyl 50 mcg 06/01/21 12:29 Fentanyl 100 Mcg/2 Ml Inj IV Q10MIN PRN ANALGESIA Furosemide 20 mg 06/07/21 12:00 06/09/21 21:45 Furosemide 20 Mg Tab FEEDTUBE 20 mg BID MARK Administration Haloperidol Lactate 5 mg 05/30/21 12:18 06/09/21 16:32 Haloperidol Lactate 5 Mg/1 Ml Inj IV 5 mg Q6H PRN Administration Agitation Hydrophilic Ointment 1 applic 06/01/21 12:30 Lip Therapy Vaseline TP Q2HR PRN Dry Lips Dexmedetomidine HCl 400 mcg/ 104 mls @ 5.307 mls/hr 05/24/21 05:00 06/10/21 01:00 Sodium Chloride IV 1.2 mcg/kg/hr TITRATE MARK 31.842 mls/hr Administration Protocol 0.2 MCG/KG/HR Fentanyl Citrate 2,000 mcg in 100 mls @ 5.103 mls/hr 06/01/21 13:00 06/08/21 11:24 Fentanyl Drip Premix IV 0 mcg/kg/hr TITR MARK 0 mls/hr Titration Protocol 1 MCG/KG/HR Lorazepam 2 mg 05/31/21 11:00 06/09/21 16:32 Lorazepam 2 Mg/Ml Vial IV 2 mg Q4H PRN Administration Agitation Multi-Ingred Cream/Lotion/Oil/Oint 1 applic 06/01/21 12:30 Mineral Oil/Petrolatum, White Ophth Oint 3.5 Gm OU Q4HR PRN Dry Eye(s) Ondansetron HCl 4 mg 05/23/21 11:43 Ondansetron 4 Mg/2 Ml Inj IV Q8H PRN Nausea And Vomiting Quetiapine Fumarate 75 mg 06/07/21 22:00 06/09/21 21:46 Quetiapine 25 Mg Tab PO 75 mg BID MARK Administration Senna/Docusate Sodium 1 tab 06/01/21 22:00 06/09/21 21:46 Sennosides/Docusate Sodium 8.6/50 Mg Tab FEEDTUBE 1 tab BID MARK Administration Simple Syrup 15 ml 05/29/21 08:45 Simple Syrup 15 Ml FEEDTUBE PRN PRN Hypoglycemia Simple Syrup 30 ml 05/29/21 08:45 Simple Syrup 15 Ml FEEDTUBE PRN PRN Hypoglycemia Sodium Bicarbonate 325 mg 05/29/21 08:45 Sodium Bicarbonate 325 Mg Tab FEEDTUBE PRN PRN For Clogged Feeding Tube Sodium Chloride 10 ml 05/23/21 22:00 06/09/21 21:46 Sodium Chloride 0.9% 10 Ml Flush Syringe IV 10 ml BID MARK Administration Sodium Chloride 10 ml 05/23/21 11:43 Sodium Chloride 0.9% 10 Ml Flush Syringe IV PRN PRN LINE FLUSH Sodium Chloride 10 ml 05/31/21 09:50 06/01/21 12:32 Sodium Chloride 0.9% 50 Ml Ivpb IV 10 ml PRN PRN Administration FLUSH Vitamin B Complex/Folic Acid 1 each 05/30/21 10:00 06/09/21 10:30 Folbee Plus Cz (Folic Acid/Vit Bcomp&C/Cu/Znox) PO 1 each QDAY MARK Administration Nutrition/Malnutrition Assess - Dietary Evaluation Nutrition/Malnutrition Findings: Nutrition Notes Start: 05/28/21 12:16 Freq: Status: Active Protocol: Document 06/07/21 15:07 YURI (Rec: 06/07/21 15:17 [email or web address] [id number]) Nutrition Notes Initial or Follow up Reassessment Current Diagnosis Heart Failure,Respiratory Failure Other Pertinent Diagnosis Acute encephalopathy, Overdose , Methamphetamine dependence Current Diet TF - Vital HP at 70ml/hr Labs/Tests Phos 2.3 Pertinent Medications Lasix, 15mmol KPhos x 1 dose, Vit B complex/Folic acid Height 6 ft Weight 102.058 kg [place] Body Weight (kg) 80.90 BMI 30.5 Weight Status Obese Subjective/Other Information Pt remains on vent support. Per RN, pt tolerating TF at goal rate and currently receiving 200ml water flush q4h. PEG and trach placed on 06/04. Percent of energy/protein needs met: 71% energy 91% pro Burn Absent Trauma Absent #1 Nutrition Diagnosis Inadequate oral intake Diagnosis Progress(for reassessment Continues documentation) Is patient on ventilator? Yes Is Patient Ambulatory and/or Out of Bed No REE-([facility]-confined to bed) [phone] Calculation Used for Recommendations 65-70% energy needs Additional Notes Energy needs: 3951-4797 kcal/ day Pro needs 2g/kg IBW: 162g/day Fluid needs 1ml/kcal Nutrition Intervention Nutrition Support: Continue Vital HP at 70 ml/hr. Continue 200ml water flush q4h until hypernatremia resolves; then provide 50ml water flush q4h. Kcal 1,680 Protein (gm) 147 Carbohydrates (gm) 188 Fat (gm) 39 Fluid (mL) 1,404 Fiber (gm) 0 Goal #1 TF tolerance Goal #2 TF to meet 65-70% energy and at least 75% pro needs Follow-Up By: 06/11/21 Additional Comments F/U: Vent status, Na lab/water flush
[2021-06-09] MEDS: FAMOTIDINE 20 MG TAB FEEDTUBE SCH (21:46)
[2021-06-10] MEDS: FREE WATER PO SCH ×4 (01:22→14:37)
[2021-06-10] MEDS: AMPICILLIN/SULBACTA 3GM/100ML 3 GM/100 ML BAG IV SCH (05:09)
[2021-06-10 06:26] LABS: Hematocrit 31.7 % (35.5-45.6); Hemoglobin 10.3 gm/dl (11.8-15.2); Mean Corpuscular HGB Conc 32 % (32-34); Mean Corpuscular Volume 86 fl (84-94); Platelet Count 527 K/mm3 (140-440); Red Blood Count 3.68 M/mm3 (3.65-5.03); Red Cell Distribution Width 16.5 % (13.2-15.2)
[2021-06-10 06:48] LABS: Blood Urea Nitrogen 13 mg/dL (9-20); Calcium 8.9 mg/dL (8.4-10.2); Hemolysis Index 2
[2021-06-10 07:01] LABS: BUN/Creatinine Ratio 22
[2021-06-10] MEDS: FUROSEMIDE 20 MG TAB FEEDTUBE SCH (10:28)
[2021-06-10] MEDS: SENNOSIDES/DOCUSATE SODIUM 8.6/50 MG TAB FEEDTUBE SCH (10:28)
[2021-06-10] MEDS: carvediloL 6.25 MG TAB FEEDTUBE SCH (10:28)
[2021-06-10] MEDS: FOLBEE PLUS CZ (FOLIC ACID/VIT BCOMP&C/CU/ZNOX) PO SCH (10:28)
[2021-06-10] MEDS: QUEtiapine 25 MG TAB PO SCH (10:28)
[2021-06-10] MEDS: APIXABAN 5 MG TAB PO SCH (10:28)
--- NOTE | 2021-06-10 10:54 | Progress Note ---
Assessment and Plan 40 y/o male with suspected overdose and metabolic acidosis 06/10/21: No objection to transfer to LTACH today. Continue PSV trials as jose d ated. Guarded Prognosis but more promising given improvement in mental status. 06/09/21: Will attempt some PSV trials today. Given marginal BP's will keep lasix at current dose if ok with Cards. Discuss with CM about placement. Guarded prognosis. 06/08/21: Today will turn off fent and see if patient can maintain off this. If so, RT will start PSV trials while on precedex. CM still working on placement. Tolerated low dose BB and lasix therapy. Stopping midodrine today and will reassess blood pressure tomorrow. If stable off midodrine, will consider increasing lasix to 40 BID. Continue ICU care. 06/07/21: Continue BID seroquel. Reviewed I/O. Positive daily for several days. No issues with hypoxemia but as we wean vent settings and remove afterload reducers, worried about worsening pullm status. Will ask cards about scheduled diuretic therapy. Continue to wean as tolerated. Placement. 06/06/21: Will start BID Seroquel today. Wean Diprovan off. Once off all sedation, will attempt PSV trials. Placement. 06/05/21: Gain control of sedation and mental state. Feed per peg tube. Anticoagulation for DVT. Abx. Placement. 06/04/21: Trach and peg today. Wean sedation as tolerated once trached. once off all sedation can try PSV trials if patient will remain calm enough. Anticoagulation for DVT. MRI and head CT were negative. COntinue abx therapy. Guarded prognosis. 06/03/21: Surgery has seen and will schedule for trach and peg soon. IR consulted given acute DVT in upper ext and possible retained products. Will obtain CT of chest. Given mental status and no real answer with negative head CT, will obtain MRI. Will start empiric unasyn given secretions, odor and white count. Only on minimal vent settings. Await sputum culture. LFT's better. WIll place central line in groin. GUarded prognosis. 06/02/21: recheck LFT's. Consult surgery for trach and peg. Feed patient. Reviewed abdominal US from 05/27, unremarkable but if LFT's worse, may need to repeat or even consider CT of abdomen pelvis. 06/01/21: Reintubated today. Sedated. Spoke with mother over the phone. Given this is the third intubation in less than 10 days, will consult surgery for trach and peg. 05/31/21: Extubated and had some upper airway noise. RT gave racemic epi. I ncreased work of breathing but no desats so will try bipap therapy. If fails will be reintubated and trached. Keep NPO for now. Will need to change BB to IV while on bipap therapy. 05/28/21: Extubate again today once patient is more awake. Continue precedex to help with agitation. Will need swallow eval once extubated. Cards is seeing, await any new recs. spoke with them this morning and his cardiomyopathy and systolic heart failure are chronic with normal coronaries on a cath last year s omet[facility] in the [facility]. 05/27/21: Get patient to ICU as soon as possible to achieve adequate sedation and mental state control to insure successful extubation. AGree with Precedex 05/26/21: Attempt extubation today once all sedation is off. 05/25/21: follow up echo. Spoke with RT about ABG. States will be in system within the hour. Still pressors but on Precedex, Versed and Fent. needs to be COVID tested. BNP was >6k. Unable to diurese right now given pressor requirements but need to follow up echo. need to get patient upstairs as soon as possible. Spoke with charge nurse and they are working on this. 1. CXR shows cardiomegaly with some bibasilar changes. Could be fluid. Suggest swabbing for COVID. Check BNP and obtain 2D echo given heart size. 2. Minimal sedation to assess mental status 3. Wean pressors for MAPS >60 4. Follow up renal recs 5. No ABG prior to intubation. Echo should be a bubble study given degree of hypoxemia seen on ABG CCT 31 minutes. Subjective Date of service: 06/10/21 Principal diagnosis: Overdose Interval history: Awake and alert. Following some commands. Per CM has an LTACH bed Objective Vital Signs - 12hr 06/09/21 06/09/21 06/09/21 23:00 23:30 23:51 Temperature Pulse Rate 71 73 66 Pulse Rate [ From Monitor] Respiratory 25 H 19 Rate Blood Pressure 112/61 116/55 116/55 O2 Sat by Pulse 95 96 96 Oximetry O2 Sat by Pulse Oximetry [ Assessment] 06/10/21 06/10/21 06/10/21 00:00 00:30 01:00 Temperature 98.1 F Pulse Rate 71 70 70 Pulse Rate [ 96 H From Monitor] Respiratory 24 25 H 21 Rate Blood Pressure 112/60 113/62 109/61 O2 Sat by Pulse 96 96 96 Oximetry O2 Sat by Pulse Oximetry [ Assessment] 06/10/21 06/10/21 06/10/21 01:30 02:00 02:30 Temperature Pulse Rate 77 72 69 Pulse Rate [ From Monitor] Respiratory 23 30 H 21 Rate Blood Pressure 115/61 112/57 109/59 O2 Sat by Pulse 98 97 97 Oximetry O2 Sat by Pulse Oximetry [ Assessment] 06/10/21 06/10/21 06/10/21 03:00 03:30 04:00 Temperature 98.3 F Pulse Rate 68 66 65 Pulse Rate [ 96 H From Monitor] Respiratory 31 H 30 H 24 Rate Blood Pressure 115/62 111/62 109/63 O2 Sat by Pulse 96 97 98 Oximetry O2 Sat by Pulse Oximetry [ Assessment] 06/10/21 06/10/21 06/10/21 04:30 04:39 04:44 Temperature Pulse Rate 79 76 Pulse Rate [ From Monitor] Respiratory 18 Rate Blood Pressure 110/77 110/77 O2 Sat by Pulse 99 98 Oximetry O2 Sat by Pulse 100 Oximetry [ Assessment] 06/10/21 06/10/21 06/10/21 05:00 05:30 06:00 Temperature Pulse Rate 74 61 64 Pulse Rate [ From Monitor] Respiratory 27 H 17 24 Rate Blood Pressure 118/70 115/66 116/68 O2 Sat by Pulse 97 96 97 Oximetry O2 Sat by Pulse Oximetry [ Assessment] 06/10/21 06/10/21 06/10/21 06:12 08:00 09:12 Temperature 98.7 F Pulse Rate Pulse Rate [ From Monitor] Respiratory Rate Blood Pressure O2 Sat by Pulse 99 99 Oximetry O2 Sat by Pulse Oximetry [ Assessment] 06/10/21 06/10/21 10:28 10:37 Temperature Pulse Rate 91 H 81 Pulse Rate [ From Monitor] Respiratory Rate Blood Pressure 107/65 120/80 O2 Sat by Pulse 100 Oximetry O2 Sat by Pulse Oximetry [ Assessment] Constitutional: other (Arousable to verbal stimulation) ENT: oropharynx moist, other (Orally intubated) Ascultation: Bilateral: rhonchi Cardiovascular: regular rate and rhythm (With episodes of tachycardia) Gastrointestinal: normoactive bowel sounds, soft, non-tender CBC and BMP: 06/10/21 05:53 06/10/21 05:53 ABG, PT/INR, D-dimer: ABG ABG pH 7.406 (7.320-7.450) 06/04/21 04:00 POC ABG pCO2 51.5 mmHg (32.0-48.0) H 06/04/21 04:00 ABG pCO2 54.4 mm Hg 06/02/21 05:42 POC ABG pO2 61.7 mmHg (83-108) L 06/04/21 04:00 ABG pO2 141.2 mm Hg (80.0-90.0) H 06/02/21 05:42 POC ABG HCO3 31.6 06/04/21 04:00 ABG O2 Saturation 92.7 (0-100) 06/04/21 04:00 PT/INR, D-dimer PT 14.2 Sec. (12.2-14.9) 06/07/21 10:50 INR 0.99 (0.87-1.13) 06/07/21 10:50 Abnormal lab findings: Abnormal Labs 05/23/21 05/23/21 05/23/21 05:55 09:38 09:38 WBC RBC 5.09 H Hgb Hct 46.2 H MCH MCHC RDW Plt Count Lymph % (Auto) [place] % (Auto) [place] # (Auto) Seg Neutrophils % Seg Neuts % (Manual) Lymphocytes % (Manual) Seg Neutrophils # Seg Neutrophils # Man Lymphocytes # (Manual) PT INR Heparin Anti-Xa Level ABG pH 7.265 L POC ABG pCO2 POC ABG pO2 ABG pO2 ABG HCO3 ABG O2 Saturation 94.6 L ABG Base Excess -4.5 L ABG Hemoglobin ABG Oxyhemoglobin ABG Potassium ABG Glucose Oxyhemoglobin 92.3 L Carboxyhemoglobin Sodium Potassium Chloride Carbon Dioxide 20 L BUN Creatinine Glucose 147 H POC Glucose Lactic Acid Calcium Phosphorus Magnesium Total Bilirubin Direct Bilirubin AST Total Creatine Kinase C-Reactive Protein NT-Pro-B Natriuret Pep Total Protein Albumin 3.6 L Triglycerides Arterial Blood Glucose Urine WBC (Auto) Salicylates Acetaminophen 05/23/21 05/23/21 05/23/21 09:38 09:38 09:38 WBC RBC Hgb Hct MCH MCHC RDW Plt Count Lymph % (Auto) [place] % (Auto) [place] # (Auto) Seg Neutrophils % Seg Neuts % (Manual) Lymphocytes % (Manual) Seg Neutrophils # Seg Neutrophils # Man Lymphocytes # (Manual) PT INR Heparin Anti-Xa Level ABG pH POC ABG pCO2 POC ABG pO2 ABG pO2 ABG HCO3 ABG O2 Saturation ABG Base Excess ABG Hemoglobin ABG Oxyhemoglobin ABG Potassium ABG Glucose Oxyhemoglobin Carboxyhemoglobin Sodium Potassium Chloride Carbon Dioxide BUN Creatinine Glucose POC Glucose Lactic Acid Calcium Phosphorus Magnesium Total Bilirubin Direct Bilirubin AST Total Creatine Kinase C-Reactive Protein NT-Pro-B Natriuret Pep 6058 H Total Protein Albumin Triglycerides Arterial Blood Glucose Urine WBC (Auto) Salicylates < 0.3 L Acetaminophen 5.0 L 05/23/21 05/23/21 05/24/21 12:49 Unknown 03:44 WBC RBC Hgb Hct MCH MCHC RDW Plt Count Lymph % (Auto) [place] % (Auto) [place] # (Auto) Seg Neutrophils % Seg Neuts % (Manual) Lymphocytes % (Manual) Seg Neutrophils # Seg Neutrophils # Man Lymphocytes # (Manual) PT INR Heparin Anti-Xa Level ABG pH 7.208 L 7.241 L POC ABG pCO2 POC ABG pO2 ABG pO2 52.2 L ABG HCO3 ABG O2 Saturation 93.5 L 83.7 L ABG Base Excess -6.7 L -3.7 L ABG Hemoglobin ABG Oxyhemoglobin ABG Potassium 5.6 H ABG Glucose 53 L Oxyhemoglobin 91.1 L 81.1 L Carboxyhemoglobin Sodium Potassium Chloride Carbon Dioxide BUN Creatinine Glucose POC Glucose Lactic Acid Calcium Phosphorus Magnesium Total Bilirubin Direct Bilirubin AST Total Creatine Kinase C-Reactive Protein NT-Pro-B Natriuret Pep Total Protein Albumin Triglycerides Arterial Blood Glucose 53 L Urine WBC (Auto) Salicylates Acetaminophen 05/24/21 05/24/21 05/24/21 05:14 05:14 09:35 WBC 23.3 H RBC 5.23 H Hgb Hct 47.3 H MCH MCHC RDW 15.3 H Plt Count Lymph % (Auto) [place] % (Auto) [place] # (Auto) Seg Neutrophils % Seg Neuts % (Manual) 12.0 L Lymphocytes % (Manual) 3.0 L Seg Neutrophils # Seg Neutrophils # Man Lymphocytes # (Manual) 0.7 L PT INR Heparin Anti-Xa Level ABG pH POC ABG pCO2 POC ABG pO2 ABG pO2 ABG HCO3 ABG O2 Saturation ABG Base Excess ABG Hemoglobin ABG Oxyhemoglobin ABG Potassium ABG Glucose Oxyhemoglobin Carboxyhemoglobin Sodium Potassium 6.3 H* D Chloride 107.3 H Carbon Dioxide 20 L BUN 33 H Creatinine 3.5 H D Glucose 56 L POC Glucose Lactic Acid Calcium Phosphorus Magnesium Total Bilirubin 1.90 H Direct Bilirubin AST Total Creatine Kinase 556 H C-Reactive Protein NT-Pro-B Natriuret Pep Total Protein 4.9 L D Albumin 2.8 L Triglycerides Arterial Blood Glucose Urine WBC (Auto) Salicylates Acetaminophen 05/24/21 05/24/21 05/25/21 19:45 Unknown 04:23 WBC 20.1 H RBC Hgb Hct MCH MCHC 31 L RDW 15.5 H Plt Count Lymph % (Auto) [place] % (Auto) [place] # (Auto) Seg Neutrophils % Seg Neuts % (Manual) 94.0 H Lymphocytes % (Manual) 5.0 L Seg Neutrophils # Seg Neutrophils # Man 18.9 H Lymphocytes # (Manual) 1.0 L PT INR Heparin Anti-Xa Level ABG pH POC ABG pCO2 POC ABG pO2 ABG pO2 ABG HCO3 ABG O2 Saturation ABG Base Excess ABG Hemoglobin ABG Oxyhemoglobin ABG Potassium ABG Glucose Oxyhemoglobin Carboxyhemoglobin Sodium Potassium 5.7 H Chloride 108.9 H Carbon Dioxide 21 L BUN 36 H Creatinine 2.6 H Glucose 108 H POC Glucose Lactic Acid Calcium Phosphorus Magnesium Total Bilirubin Direct Bilirubin AST Total Creatine Kinase C-Reactive Protein NT-Pro-B Natriuret Pep Total Protein Albumin Triglycerides Arterial Blood Glucose Urine WBC (Auto) 78.0 H Salicylates Acetaminophen 05/25/21 05/25/21 05/25/21 04:23 09:14 11:46 WBC RBC Hgb Hct MCH MCHC RDW Plt Count Lymph % (Auto) [place] % (Auto) [place] # (Auto) Seg Neutrophils % Seg Neuts % (Manual) Lymphocytes % (Manual) Seg Neutrophils # Seg Neutrophils # Man Lymphocytes # (Manual) PT INR Heparin Anti-Xa Level ABG pH POC ABG pCO2 POC ABG pO2 ABG pO2 ABG HCO3 ABG O2 Saturation ABG Base Excess ABG Hemoglobin ABG Oxyhemoglobin ABG Potassium ABG Glucose Oxyhemoglobin Carboxyhemoglobin Sodium Potassium Chloride 111.4 H Carbon Dioxide 18 L BUN 33 H Creatinine 1.9 H Glucose 121 H POC Glucose Lactic Acid 2.40 H* 2.60 H* Calcium Phosphorus Magnesium Total Bilirubin Direct Bilirubin AST Total Creatine Kinase C-Reactive Protein NT-Pro-B Natriuret Pep Total Protein Albumin Triglycerides Arterial Blood Glucose Urine WBC (Auto) Salicylates Acetaminophen 05/25/21 05/26/21 05/26/21 18:00 03:16 05:55 WBC 22.0 H RBC Hgb Hct MCH MCHC RDW 15.3 H Plt Count Lymph % (Auto) [place] % (Auto) [place] # (Auto) Seg Neutrophils % Seg Neuts % (Manual) 96.0 H Lymphocytes % (Manual) 2.0 L Seg Neutrophils # Seg Neutrophils # Man 21.1 H Lymphocytes # (Manual) 0.4 L PT INR Heparin Anti-Xa Level ABG pH POC ABG pCO2 POC ABG pO2 ABG pO2 208.2 H ABG HCO3 ABG O2 Saturation 99.3 H ABG Base Excess -2.7 L -2.6 L ABG Hemoglobin 13.7 L 13.0 L ABG Oxyhemoglobin ABG Potassium ABG Glucose Oxyhemoglobin 94.8 L Carboxyhemoglobin Sodium Potassium Chloride Carbon Dioxide BUN Creatinine Glucose POC Glucose Lactic Acid Calcium Phosphorus Magnesium Total Bilirubin Direct Bilirubin AST Total Creatine Kinase C-Reactive Protein NT-Pro-B Natriuret Pep Total Protein Albumin Triglycerides Arterial Blood Glucose Urine WBC (Auto) Salicylates Acetaminophen 05/26/21 05/27/21 05/27/21 05:55 03:18 03:18 WBC 21.5 H RBC Hgb Hct MCH MCHC RDW 15.5 H Plt Count Lymph % (Auto) [place] % (Auto) [place] # (Auto) Seg Neutrophils % Seg Neuts % (Manual) 92.0 H Lymphocytes % (Manual) 5.0 L Seg Neutrophils # Seg Neutrophils # Man 19.8 H Lymphocytes # (Manual) 1.1 L PT INR Heparin Anti-Xa Level ABG pH POC ABG pCO2 POC ABG pO2 ABG pO2 ABG HCO3 ABG O2 Saturation ABG Base Excess ABG Hemoglobin ABG Oxyhemoglobin ABG Potassium ABG Glucose Oxyhemoglobin Carboxyhemoglobin Sodium 148 H Potassium Chloride 111.3 H 113.8 H Carbon Dioxide 21 L 20 L BUN 23 H Creatinine Glucose 102 H 103 H POC Glucose Lactic Acid Calcium 8.3 L Phosphorus Magnesium Total Bilirubin 7.80 H Direct Bilirubin AST 112 H Total Creatine Kinase C-Reactive Protein NT-Pro-B Natriuret Pep Total Protein 5.2 L Albumin 2.9 L Triglycerides Arterial Blood Glucose Urine WBC (Auto) Salicylates Acetaminophen 05/27/21 05/28/21 05/28/21 03:18 05:55 10:05 WBC 11.4 H RBC Hgb Hct MCH MCHC RDW 15.5 H Plt Count Lymph % (Auto) 11.2 L [place] % (Auto) 8.6 H [place] # (Auto) 1.0 H Seg Neutrophils % 78.9 H Seg Neuts % (Manual) Lymphocytes % (Manual) Seg Neutrophils # 9.0 H Seg Neutrophils # Man Lymphocytes # (Manual) PT INR Heparin Anti-Xa Level ABG pH POC ABG pCO2 POC ABG pO2 ABG pO2 104.7 H ABG HCO3 ABG O2 Saturation ABG Base Excess -3.1 L ABG Hemoglobin 13.2 L ABG Oxyhemoglobin ABG Potassium ABG Glucose Oxyhemoglobin Carboxyhemoglobin Sodium Potassium Chloride Carbon Dioxide BUN Creatinine Glucose POC Glucose Lactic Acid Calcium Phosphorus Magnesium Total Bilirubin 7.90 H Direct Bilirubin 6.0 H AST 114 H Total Creatine Kinase C-Reactive Protein NT-Pro-B Natriuret Pep Total Protein 5.2 L Albumin 2.8 L Triglycerides Arterial Blood Glucose Urine WBC (Auto) Salicylates Acetaminophen 05/28/21 05/28/21 05/28/21 10:05 10:05 10:05 WBC RBC Hgb Hct MCH MCHC RDW Plt Count Lymph % (Auto) [place] % (Auto) [place] # (Auto) Seg Neutrophils % Seg Neuts % (Manual) Lymphocytes % (Manual) Seg Neutrophils # Seg Neutrophils # Man Lymphocytes # (Manual) PT INR Heparin Anti-Xa Level ABG pH POC ABG pCO2 POC ABG pO2 ABG pO2 ABG HCO3 ABG O2 Saturation ABG Base Excess ABG Hemoglobin ABG Oxyhemoglobin ABG Potassium ABG Glucose Oxyhemoglobin Carboxyhemoglobin Sodium 149 H Potassium Chloride 119.9 H Carbon Dioxide 18 L BUN Creatinine Glucose 103 H POC Glucose Lactic Acid 2.10 H* Calcium Phosphorus Magnesium Total Bilirubin Direct Bilirubin AST Total Creatine Kinase C-Reactive Protein 34.80 H NT-Pro-B Natriuret Pep Total Protein Albumin Triglycerides Arterial Blood Glucose Urine WBC (Auto) Salicylates Acetaminophen 05/29/21 05/29/21 05/29/21 03:00 05:02 05:02 WBC 13.0 H RBC Hgb Hct MCH MCHC RDW 15.4 H Plt Count Lymph % (Auto) [place] % (Auto) [place] # (Auto) Seg Neutrophils % Seg Neuts % (Manual) Lymphocytes % (Manual) Seg Neutrophils # Seg Neutrophils # Man Lymphocytes # (Manual) PT INR Heparin Anti-Xa Level ABG pH POC ABG pCO2 POC ABG pO2 ABG pO2 138.1 H ABG HCO3 ABG O2 Saturation ABG Base Excess -3.6 L ABG Hemoglobin 12.8 L ABG Oxyhemoglobin ABG Potassium ABG Glucose Oxyhemoglobin Carboxyhemoglobin Sodium 150 H Potassium Chloride 119.8 H Carbon Dioxide 18 L BUN Creatinine Glucose 109 H POC Glucose Lactic Acid Calcium Phosphorus 2.20 L Magnesium 1.50 L Total Bilirubin Direct Bilirubin AST Total Creatine Kinase C-Reactive Protein NT-Pro-B Natriuret Pep Total Protein Albumin Triglycerides Arterial Blood Glucose Urine WBC (Auto) Salicylates Acetaminophen 05/29/21 05/29/21 05/30/21 17:00 23:37 04:29 WBC RBC Hgb 10.8 L Hct 33.4 L MCH MCHC RDW 15.7 H Plt Count Lymph % (Auto) [place] % (Auto) [place] # (Auto) Seg Neutrophils % Seg Neuts % (Manual) Lymphocytes % (Manual) Seg Neutrophils # Seg Neutrophils # Man Lymphocytes # (Manual) PT INR Heparin Anti-Xa Level ABG pH POC ABG pCO2 POC ABG pO2 ABG pO2 ABG HCO3 ABG O2 Saturation ABG Base Excess ABG Hemoglobin ABG Oxyhemoglobin ABG Potassium ABG Glucose Oxyhemoglobin Carboxyhemoglobin Sodium Potassium Chloride Carbon Dioxide BUN Creatinine Glucose POC Glucose 114 H 122 H Lactic Acid Calcium Phosphorus Magnesium Total Bilirubin Direct Bilirubin AST Total Creatine Kinase C-Reactive Protein NT-Pro-B Natriuret Pep Total Protein Albumin Triglycerides Arterial Blood Glucose Urine WBC (Auto) Salicylates Acetaminophen 05/30/21 05/30/21 05/31/21 04:29 23:36 04:00 WBC 11.2 H RBC Hgb 10.9 L Hct 34.3 L MCH MCHC RDW 15.4 H Plt Count Lymph % (Auto) [place] % (Auto) [place] # (Auto) Seg Neutrophils % Seg Neuts % (Manual) Lymphocytes % (Manual) Seg Neutrophils # Seg Neutrophils # Man Lymphocytes # (Manual) PT INR Heparin Anti-Xa Level ABG pH POC ABG pCO2 POC ABG pO2 ABG pO2 ABG HCO3 ABG O2 Saturation ABG Base Excess ABG Hemoglobin ABG Oxyhemoglobin ABG Potassium ABG Glucose Oxyhemoglobin Carboxyhemoglobin Sodium Potassium 3.2 L Chloride 112.4 H Carbon Dioxide 21 L BUN Creatinine 0.7 L Glucose 128 H POC Glucose 120 H Lactic Acid Calcium Phosphorus Magnesium Total Bilirubin Direct Bilirubin AST Total Creatine Kinase C-Reactive Protein NT-Pro-B Natriuret Pep Total Protein Albumin Triglycerides Arterial Blood Glucose Urine WBC (Auto) Salicylates Acetaminophen 05/31/21 05/31/21 05/31/21 04:00 11:50 16:16 WBC RBC Hgb Hct MCH MCHC RDW Plt Count Lymph % (Auto) [place] % (Auto) [place] # (Auto) Seg Neutrophils % Seg Neuts % (Manual) Lymphocytes % (Manual) Seg Neutrophils # Seg Neutrophils # Man Lymphocytes # (Manual) PT INR Heparin Anti-Xa Level ABG pH POC ABG pCO2 POC ABG pO2 ABG pO2 ABG HCO3 ABG O2 Saturation ABG Base Excess ABG Hemoglobin ABG Oxyhemoglobin ABG Potassium ABG Glucose Oxyhemoglobin Carboxyhemoglobin Sodium 148 H Potassium Chloride 114.8 H Carbon Dioxide BUN Creatinine Glucose 151 H POC Glucose 123 H 107 H Lactic Acid Calcium Phosphorus Magnesium Total Bilirubin Direct Bilirubin AST Total Creatine Kinase C-Reactive Protein NT-Pro-B Natriuret Pep Total Protein Albumin Triglycerides Arterial Blood Glucose Urine WBC (Auto) Salicylates Acetaminophen 06/01/21 06/01/21 06/01/21 02:55 04:10 04:10 WBC 16.5 H RBC Hgb Hct MCH MCHC RDW 16.0 H Plt Count Lymph % (Auto) [place] % (Auto) [place] # (Auto) Seg Neutrophils % Seg Neuts % (Manual) Lymphocytes % (Manual) Seg Neutrophils # Seg Neutrophils # Man Lymphocytes # (Manual) PT INR Heparin Anti-Xa Level ABG pH 7.334 L POC ABG pCO2 POC ABG pO2 ABG pO2 ABG HCO3 26.1 H ABG O2 Saturation ABG Base Excess ABG Hemoglobin 12.6 L ABG Oxyhemoglobin ABG Potassium ABG Glucose Oxyhemoglobin 93.1 L Carboxyhemoglobin Sodium 148 H Potassium 3.4 L Chloride 108.8 H Carbon Dioxide BUN Creatinine Glucose 113 H POC Glucose Lactic Acid Calcium Phosphorus Magnesium Total Bilirubin Direct Bilirubin AST Total Creatine Kinase C-Reactive Protein NT-Pro-B Natriuret Pep Total Protein Albumin Triglycerides Arterial Blood Glucose Urine WBC (Auto) Salicylates Acetaminophen 06/01/21 06/01/21 06/02/21 12:46 15:30 05:42 WBC RBC Hgb Hct MCH MCHC RDW Plt Count Lymph % (Auto) [place] % (Auto) [place] # (Auto) Seg Neutrophils % Seg Neuts % (Manual) Lymphocytes % (Manual) Seg Neutrophils # Seg Neutrophils # Man Lymphocytes # (Manual) PT INR Heparin Anti-Xa Level ABG pH POC ABG pCO2 POC ABG pO2 ABG pO2 114.5 H 141.2 H ABG HCO3 29.6 H 30.6 H ABG O2 Saturation ABG Base Excess 4.5 H 4.1 H ABG Hemoglobin 11.8 L 12.0 L ABG Oxyhemoglobin ABG Potassium ABG Glucose Oxyhemoglobin Carboxyhemoglobin Sodium Potassium Chloride Carbon Dioxide BUN Creatinine Glucose POC Glucose 119 H Lactic Acid Calcium Phosphorus Magnesium Total Bilirubin Direct Bilirubin AST Total Creatine Kinase C-Reactive Protein NT-Pro-B Natriuret Pep Total Protein Albumin Triglycerides Arterial Blood Glucose Urine WBC (Auto) Salicylates Acetaminophen 06/02/21 06/02/21 06/02/21 07:41 07:41 07:41 WBC 17.4 H RBC Hgb 11.1 L Hct 34.3 L MCH MCHC RDW 15.9 H Plt Count Lymph % (Auto) [place] % (Auto) [place] # (Auto) Seg Neutrophils % Seg Neuts % (Manual) Lymphocytes % (Manual) Seg Neutrophils # Seg Neutrophils # Man Lymphocytes # (Manual) PT INR Heparin Anti-Xa Level ABG pH POC ABG pCO2 POC ABG pO2 ABG pO2 ABG HCO3 ABG O2 Saturation ABG Base Excess ABG Hemoglobin ABG Oxyhemoglobin ABG Potassium ABG Glucose Oxyhemoglobin Carboxyhemoglobin Sodium 150 H Potassium Chloride 111.8 H Carbon Dioxide BUN Creatinine Glucose POC Glucose Lactic Acid Calcium Phosphorus Magnesium Total Bilirubin 3.30 H Direct Bilirubin 2.4 H AST 48 H Total Creatine Kinase C-Reactive Protein NT-Pro-B Natriuret Pep Total Protein 6.1 L Albumin 2.1 L Triglycerides Arterial Blood Glucose Urine WBC (Auto) Salicylates Acetaminophen 06/02/21 06/02/21 06/03/21 20:00 23:30 08:29 WBC 12.2 H RBC Hgb 11.7 L Hct MCH 27 L MCHC 31 L RDW 15.4 H Plt Count Lymph % (Auto) [place] % (Auto) [place] # (Auto) Seg Neutrophils % Seg Neuts % (Manual) Lymphocytes % (Manual) Seg Neutrophils # Seg Neutrophils # Man Lymphocytes # (Manual) PT INR Heparin Anti-Xa Level ABG pH POC ABG pCO2 POC ABG pO2 ABG pO2 ABG HCO3 ABG O2 Saturation ABG Base Excess ABG Hemoglobin ABG Oxyhemoglobin ABG Potassium ABG Glucose Oxyhemoglobin Carboxyhemoglobin Sodium Potassium Chloride 111.1 H Carbon Dioxide BUN Creatinine 0.7 L Glucose 105 H POC Glucose 112 H Lactic Acid Calcium 8.3 L Phosphorus Magnesium Total Bilirubin 2.90 H Direct Bilirubin AST 53 H Total Creatine Kinase C-Reactive Protein NT-Pro-B Natriuret Pep Total Protein 6.2 L Albumin 1.8 L Triglycerides Arterial Blood Glucose Urine WBC (Auto) Salicylates Acetaminophen 06/03/21 06/03/21 06/04/21 Unknown Unknown 04:00 WBC RBC Hgb 10.2 L Hct 31.9 L D MCH MCHC RDW Plt Count Lymph % (Auto) [place] % (Auto) [place] # (Auto) Seg Neutrophils % Seg Neuts % (Manual) Lymphocytes % (Manual) Seg Neutrophils # Seg Neutrophils # Man Lymphocytes # (Manual) PT 16.7 H INR 1.22 H Heparin Anti-Xa Level ABG pH POC ABG pCO2 51.5 H POC ABG pO2 61.7 L ABG pO2 ABG HCO3 ABG O2 Saturation ABG Base Excess ABG Hemoglobin ABG Oxyhemoglobin 90.9 L ABG Potassium ABG Glucose Oxyhemoglobin Carboxyhemoglobin 1.6 H Sodium Potassium Chloride Carbon Dioxide BUN Creatinine Glucose POC Glucose Lactic Acid Calcium Phosphorus Magnesium Total Bilirubin Direct Bilirubin AST Total Creatine Kinase C-Reactive Protein NT-Pro-B Natriuret Pep Total Protein Albumin Triglycerides Arterial Blood Glucose Urine WBC (Auto) Salicylates Acetaminophen 06/04/21 06/04/21 06/04/21 04:10 04:10 04:10 WBC 11.7 H RBC Hgb 11.2 L Hct MCH MCHC 31 L RDW 15.8 H Plt Count 447 H Lymph % (Auto) [place] % (Auto) [place] # (Auto) Seg Neutrophils % Seg Neuts % (Manual) Lymphocytes % (Manual) Seg Neutrophils # Seg Neutrophils # Man Lymphocytes # (Manual) PT 15.8 H INR 1.14 H Heparin Anti-Xa Level ABG pH POC ABG pCO2 POC ABG pO2 ABG pO2 ABG HCO3 ABG O2 Saturation ABG Base Excess ABG Hemoglobin ABG Oxyhemoglobin ABG Potassium ABG Glucose Oxyhemoglobin Carboxyhemoglobin Sodium 146 H Potassium Chloride 109.4 H Carbon Dioxide BUN Creatinine 0.6 L Glucose 122 H POC Glucose Lactic Acid Calcium Phosphorus Magnesium Total Bilirubin Direct Bilirubin AST Total Creatine Kinase C-Reactive Protein NT-Pro-B Natriuret Pep Total Protein Albumin Triglycerides 161 H Arterial Blood Glucose Urine WBC (Auto) Salicylates Acetaminophen 06/04/21 06/05/21 06/05/21 05:16 04:00 04:00 WBC RBC Hgb 11.3 L Hct 34.9 L MCH MCHC RDW 16.0 H Plt Count 515 H Lymph % (Auto) [place] % (Auto) [place] # (Auto) Seg Neutrophils % Seg Neuts % (Manual) Lymphocytes % (Manual) Seg Neutrophils # Seg Neutrophils # Man Lymphocytes # (Manual) PT INR Heparin Anti-Xa Level ABG pH POC ABG pCO2 POC ABG pO2 ABG pO2 ABG HCO3 ABG O2 Saturation ABG Base Excess ABG Hemoglobin ABG Oxyhemoglobin ABG Potassium ABG Glucose Oxyhemoglobin Carboxyhemoglobin Sodium Potassium 3.5 L Chloride Carbon Dioxide BUN 7 L Creatinine 0.6 L Glucose 131 H POC Glucose 107 H Lactic Acid Calcium Phosphorus Magnesium Total Bilirubin Direct Bilirubin AST Total Creatine Kinase C-Reactive Protein NT-Pro-B Natriuret Pep Total Protein Albumin Triglycerides Arterial Blood Glucose Urine WBC (Auto) Salicylates Acetaminophen 06/05/21 06/05/21 06/05/21 04:00 05:32 11:20 WBC RBC Hgb Hct MCH MCHC RDW Plt Count Lymph % (Auto) [place] % (Auto) [place] # (Auto) Seg Neutrophils % Seg Neuts % (Manual) Lymphocytes % (Manual) Seg Neutrophils # Seg Neutrophils # Man Lymphocytes # (Manual) PT INR Heparin Anti-Xa Level < 0.10 L 0.21 L ABG pH POC ABG pCO2 POC ABG pO2 ABG pO2 ABG HCO3 ABG O2 Saturation ABG Base Excess ABG Hemoglobin ABG Oxyhemoglobin ABG Potassium ABG Glucose Oxyhemoglobin Carboxyhemoglobin Sodium Potassium Chloride Carbon Dioxide BUN Creatinine Glucose POC Glucose 123 H Lactic Acid Calcium Phosphorus Magnesium Total Bilirubin Direct Bilirubin AST Total Creatine Kinase C-Reactive Protein NT-Pro-B Natriuret Pep Total Protein Albumin Triglycerides Arterial Blood Glucose Urine WBC (Auto) Salicylates Acetaminophen 06/05/21 06/05/21 06/06/21 12:15 17:12 02:02 WBC RBC Hgb Hct MCH MCHC RDW Plt Count Lymph % (Auto) [place] % (Auto) [place] # (Auto) Seg Neutrophils % Seg Neuts % (Manual) Lymphocytes % (Manual) Seg Neutrophils # Seg Neutrophils # Man Lymphocytes # (Manual) PT INR Heparin Anti-Xa Level ABG pH POC ABG pCO2 POC ABG pO2 ABG pO2 ABG HCO3 ABG O2 Saturation ABG Base Excess ABG Hemoglobin ABG Oxyhemoglobin ABG Potassium ABG Glucose Oxyhemoglobin Carboxyhemoglobin Sodium Potassium Chloride Carbon Dioxide BUN Creatinine Glucose POC Glucose 120 H 119 H 130 H Lactic Acid Calcium Phosphorus Magnesium Total Bilirubin Direct Bilirubin AST Total Creatine Kinase C-Reactive Protein NT-Pro-B Natriuret Pep Total Protein Albumin Triglycerides Arterial Blood Glucose Urine WBC (Auto) Salicylates Acetaminophen 06/06/21 06/06/21 06/06/21 04:00 04:00 10:00 WBC RBC Hgb 10.7 L Hct 33.6 L MCH MCHC RDW 16.2 H Plt Count 537 H Lymph % (Auto) [place] % (Auto) [place] # (Auto) Seg Neutrophils % Seg Neuts % (Manual) Lymphocytes % (Manual) Seg Neutrophils # Seg Neutrophils # Man Lymphocytes # (Manual) PT INR Heparin Anti-Xa Level 0.14 L ABG pH POC ABG pCO2 POC ABG pO2 ABG pO2 ABG HCO3 ABG O2 Saturation ABG Base Excess ABG Hemoglobin ABG Oxyhemoglobin ABG Potassium ABG Glucose Oxyhemoglobin Carboxyhemoglobin Sodium 153 H D Potassium 3.4 L Chloride 115.1 H Carbon Dioxide BUN 6 L Creatinine 0.5 L Glucose 110 H POC Glucose Lactic Acid Calcium 7.7 L Phosphorus Magnesium 1.40 L Total Bilirubin Direct Bilirubin AST Total Creatine Kinase C-Reactive Protein NT-Pro-B Natriuret Pep Total Protein Albumin Triglycerides Arterial Blood Glucose Urine WBC (Auto) Salicylates Acetaminophen 06/06/21 06/06/21 06/06/21 11:31 17:45 23:04 WBC RBC Hgb Hct MCH MCHC RDW Plt Count Lymph % (Auto) [place] % (Auto) [place] # (Auto) Seg Neutrophils % Seg Neuts % (Manual) Lymphocytes % (Manual) Seg Neutrophils # Seg Neutrophils # Man Lymphocytes # (Manual) PT INR Heparin Anti-Xa Level 0.11 L ABG pH POC ABG pCO2 POC ABG pO2 ABG pO2 ABG HCO3 ABG O2 Saturation ABG Base Excess ABG Hemoglobin ABG Oxyhemoglobin ABG Potassium ABG Glucose Oxyhemoglobin Carboxyhemoglobin Sodium Potassium Chloride Carbon Dioxide BUN Creatinine Glucose POC Glucose 112 H 113 H Lactic Acid Calcium Phosphorus Magnesium Total Bilirubin Direct Bilirubin AST Total Creatine Kinase C-Reactive Protein NT-Pro-B Natriuret Pep Total Protein Albumin Triglycerides Arterial Blood Glucose Urine WBC (Auto) Salicylates Acetaminophen 06/07/21 06/07/21 06/07/21 05:27 11:03 18:06 WBC RBC Hgb Hct MCH MCHC RDW Plt Count Lymph % (Auto) [place] % (Auto) [place] # (Auto) Seg Neutrophils % Seg Neuts % (Manual) Lymphocytes % (Manual) Seg Neutrophils # Seg Neutrophils # Man Lymphocytes # (Manual) PT INR Heparin Anti-Xa Level ABG pH POC ABG pCO2 POC ABG pO2 ABG pO2 ABG HCO3 ABG O2 Saturation ABG Base Excess ABG Hemoglobin ABG Oxyhemoglobin ABG Potassium ABG Glucose Oxyhemoglobin Carboxyhemoglobin Sodium Potassium Chloride Carbon Dioxide BUN Creatinine Glucose POC Glucose 111 H 142 H 114 H Lactic Acid Calcium Phosphorus Magnesium Total Bilirubin Direct Bilirubin AST Total Creatine Kinase C-Reactive Protein NT-Pro-B Natriuret Pep Total Protein Albumin Triglycerides Arterial Blood Glucose Urine WBC (Auto) Salicylates Acetaminophen 06/07/21 06/07/21 06/08/21 Unknown Unknown 00:49 WBC RBC 3.38 L Hgb 9.8 L Hct 29.4 L MCH MCHC RDW 16.2 H Plt Count 473 H Lymph % (Auto) [place] % (Auto) [place] # (Auto) Seg Neutrophils % Seg Neuts % (Manual) Lymphocytes % (Manual) Seg Neutrophils # Seg Neutrophils # Man Lymphocytes # (Manual) PT INR Heparin Anti-Xa Level ABG pH POC ABG pCO2 POC ABG pO2 ABG pO2 ABG HCO3 ABG O2 Saturation ABG Base Excess ABG Hemoglobin ABG Oxyhemoglobin ABG Potassium ABG Glucose Oxyhemoglobin Carboxyhemoglobin Sodium Potassium Chloride 107.4 H Carbon Dioxide BUN 8 L Creatinine 0.6 L Glucose 123 H POC Glucose 125 H Lactic Acid Calcium Phosphorus 2.30 L Magnesium Total Bilirubin Direct Bilirubin AST Total Creatine Kinase C-Reactive Protein NT-Pro-B Natriuret Pep Total Protein Albumin Triglycerides Arterial Blood Glucose Urine WBC (Auto) Salicylates Acetaminophen 06/08/21 06/08/21 06/08/21 04:42 04:42 05:15 WBC RBC 3.62 L Hgb 10.2 L Hct 31.9 L MCH MCHC RDW 16.5 H Plt Count 502 H Lymph % (Auto) [place] % (Auto) [place] # (Auto) Seg Neutrophils % Seg Neuts % (Manual) Lymphocytes % (Manual) Seg Neutrophils # Seg Neutrophils # Man Lymphocytes # (Manual) PT INR Heparin Anti-Xa Level ABG pH POC ABG pCO2 POC ABG pO2 ABG pO2 ABG HCO3 ABG O2 Saturation ABG Base Excess ABG Hemoglobin ABG Oxyhemoglobin ABG Potassium ABG Glucose Oxyhemoglobin Carboxyhemoglobin Sodium Potassium Chloride 109.9 H Carbon Dioxide BUN Creatinine 0.5 L Glucose 108 H POC Glucose 113 H Lactic Acid Calcium 8.2 L Phosphorus Magnesium 1.60 L Total Bilirubin Direct Bilirubin AST Total Creatine Kinase C-Reactive Protein NT-Pro-B Natriuret Pep Total Protein Albumin Triglycerides Arterial Blood Glucose Urine WBC (Auto) Salicylates Acetaminophen 06/08/21 06/08/21 06/08/21 12:02 17:58 23:51 WBC RBC Hgb Hct MCH MCHC RDW Plt Count Lymph % (Auto) [place] % (Auto) [place] # (Auto) Seg Neutrophils % Seg Neuts % (Manual) Lymphocytes % (Manual) Seg Neutrophils # Seg Neutrophils # Man Lymphocytes # (Manual) PT INR Heparin Anti-Xa Level ABG pH POC ABG pCO2 POC ABG pO2 ABG pO2 ABG HCO3 ABG O2 Saturation ABG Base Excess ABG Hemoglobin ABG Oxyhemoglobin ABG Potassium ABG Glucose Oxyhemoglobin Carboxyhemoglobin Sodium Potassium Chloride Carbon Dioxide BUN Creatinine Glucose POC Glucose 127 H 118 H 121 H Lactic Acid Calcium Phosphorus Magnesium Total Bilirubin Direct Bilirubin AST Total Creatine Kinase C-Reactive Protein NT-Pro-B Natriuret Pep Total Protein Albumin Triglycerides Arterial Blood Glucose Urine WBC (Auto) Salicylates Acetaminophen 06/09/21 06/09/21 06/09/21 05:10 05:10 05:38 WBC RBC Hgb 10.3 L Hct 32.9 L MCH 27 L MCHC 31 L RDW 15.9 H Plt Count 533 H Lymph % (Auto) [place] % (Auto) [place] # (Auto) Seg Neutrophils % Seg Neuts % (Manual) Lymphocytes % (Manual) Seg Neutrophils # Seg Neutrophils # Man Lymphocytes # (Manual) PT INR Heparin Anti-Xa Level ABG pH POC ABG pCO2 POC ABG pO2 ABG pO2 ABG HCO3 ABG O2 Saturation ABG Base Excess ABG Hemoglobin ABG Oxyhemoglobin ABG Potassium ABG Glucose Oxyhemoglobin Carboxyhemoglobin Sodium Potassium 3.3 L Chloride 107.9 H Carbon Dioxide BUN Creatinine 0.6 L Glucose 157 H POC Glucose 149 H Lactic Acid Calcium 8.1 L Phosphorus Magnesium Total Bilirubin Direct Bilirubin AST Total Creatine Kinase C-Reactive Protein NT-Pro-B Natriuret Pep Total Protein Albumin Triglycerides Arterial Blood Glucose Urine WBC (Auto) Salicylates Acetaminophen 06/09/21 06/10/21 06/10/21 11:49 00:25 05:53 WBC RBC Hgb Hct MCH MCHC RDW Plt Count Lymph % (Auto) [place] % (Auto) [place] # (Auto) Seg Neutrophils % Seg Neuts % (Manual) Lymphocytes % (Manual) Seg Neutrophils # Seg Neutrophils # Man Lymphocytes # (Manual) PT INR Heparin Anti-Xa Level ABG pH POC ABG pCO2 POC ABG pO2 ABG pO2 ABG HCO3 ABG O2 Saturation ABG Base Excess ABG Hemoglobin ABG Oxyhemoglobin ABG Potassium ABG Glucose Oxyhemoglobin Carboxyhemoglobin Sodium Potassium Chloride Carbon Dioxide BUN Creatinine 0.6 L Glucose POC Glucose 134 H 124 H Lactic Acid Calcium Phosphorus Magnesium Total Bilirubin Direct Bilirubin AST Total Creatine Kinase C-Reactive Protein NT-Pro-B Natriuret Pep Total Protein Albumin Triglycerides Arterial Blood Glucose Urine WBC (Auto) Salicylates Acetaminophen 06/10/21 06/10/21 06/10/21 05:53 05:53 06:25 WBC RBC Hgb 10.3 L Hct 31.7 L MCH MCHC RDW 16.5 H Plt Count 527 H Lymph % (Auto) [place] % (Auto) [place] # (Auto) Seg Neutrophils % Seg Neuts % (Manual) Lymphocytes % (Manual) Seg Neutrophils # Seg Neutrophils # Man Lymphocytes # (Manual) PT INR Heparin Anti-Xa Level ABG pH POC ABG pCO2 POC ABG pO2 ABG pO2 ABG HCO3 ABG O2 Saturation ABG Base Excess ABG Hemoglobin ABG Oxyhemoglobin ABG Potassium ABG Glucose Oxyhemoglobin Carboxyhemoglobin Sodium Potassium Chloride Carbon Dioxide BUN Creatinine 0.6 L Glucose 128 H POC Glucose 120 H Lactic Acid Calcium Phosphorus Magnesium Total Bilirubin Direct Bilirubin AST Total Creatine Kinase C-Reactive Protein NT-Pro-B Natriuret Pep Total Protein Albumin Triglycerides Arterial Blood Glucose Urine WBC (Auto) Salicylates Acetaminophen Allied health notes reviewed: nursing
--- NOTE | 2021-06-10 14:51 | Progress Note ---
Assessment and Plan Patient is a 40-year-old male with a past medical history of HFrEF (EF 15%) and methamphetamine dependence who was brought to the ED after being found unresponsive on 05/13/2021. Acute hypoxic respiratory failure-pulmonology following Drug overdose Acute on chronic HFrEF Sepsis Bilateral pneumonia DVT BRYNN-Nephrology following Rhabdomyolysis Hypernatremia Echo 05/25/2021-EF 20 to 25%. Severe global hypokinesis of left ventricle. Left ventricle is moderately dilated. Doppler flow suggests impaired LV relaxation. Moderate mitral regurgitation. No pericardial effusion Cardiac cath 08/04/2020-Angiographically normal coronary arteries. This is indicative of a nonischemic cardiomyopathy. Mildly elevated biventricular filling pressures with normal cardiac index TTE, complete 08/02/20:LVEF is 18%,Severe global LV hypokinesis. Normal LV diastolic function. LA mildly dilated. Moderate mitral regurgitation with an eccentric MR jet(s),No previous echocardiogram for comparison. Outpatient medications: Coreg 6.25 mg p.o. twice daily, Lasix 40 mg p.o. daily, lisinopril 5 mg p.o. daily Plan: PEr deiscussion with taff patient for LTACH this afternoon Continue Coreg 6.25 mg p.o. twice daily Agree with continuing Lasix 20 mg p.o. Will see as needed Patient seen in conjunction with Dr. Meyers who agrees with this plan of care - Patient Problems (1) Acute on chronic HFrEF (heart failure with reduced ejection fraction) Current Visit: Yes Status: Acute (2) PNA (pneumonia) Current Visit: Yes Status: Acute (3) Acute encephalopathy Current Visit: Yes Status: Acute (4) Acute respiratory failure Current Visit: Yes Status: Acute Qualifiers: Respiratory failure complication: hypoxia Qualified Code(s): J96.01 - Acute respiratory failure with hypoxia (5) Overdose by ingestion Current Visit: Yes Status: Acute Subjective Date of service: 06/10/21 Principal diagnosis: Overdose Interval history: Patient s/p trach and PEG. Awake and family at bedside Sinus 60s on monitor Objective Vital Signs Temp Pulse Pulse Resp BP Pulse Ox Pulse Ox 06/10/21 14:30 80 21 128/76 06/10/21 14:00 81 23 113/76 99 06/10/21 13:30 94 H 24 107/75 96 06/10/21 13:00 84 15 112/62 100 06/10/21 12:48 90 112/62 99 06/10/21 12:30 73 22 107/66 96 06/10/21 12:00 99.9 F H 77 76 26 H 114/58 96 06/10/21 11:30 70 18 109/58 97 06/10/21 11:00 64 22 113/62 97 06/10/21 10:37 81 120/80 100 06/10/21 10:30 78 35 H 120/80 100 06/10/21 10:28 91 H 107/65 06/10/21 10:00 73 20 107/65 99 06/10/21 09:30 73 22 109/66 99 06/10/21 09:12 99 06/10/21 09:00 70 22 118/73 99 06/10/21 08:30 61 26 H 109/66 100 06/10/21 08:00 98.7 F 69 69 29 H 113/69 96 06/10/21 07:30 58 L 28 H 116/71 100 06/10/21 07:00 58 L 20 113/72 99 06/10/21 06:30 62 28 H 117/68 97 06/10/21 06:12 99 06/10/21 06:00 64 24 116/68 97 06/10/21 05:30 61 17 115/66 96 06/10/21 05:00 74 27 H 118/70 97 06/10/21 04:44 100 06/10/21 04:39 76 110/77 98 06/10/21 04:30 79 18 110/77 99 06/10/21 04:00 98.3 F 65 96 H 24 109/63 98 06/10/21 03:30 66 30 H 111/62 97 06/10/21 03:00 68 31 H 115/62 96 06/10/21 02:30 69 21 109/59 97 06/10/21 02:00 72 30 H 112/57 97 06/10/21 01:30 77 23 115/61 98 06/10/21 01:00 70 21 109/61 96 06/10/21 00:30 70 25 H 113/62 96 06/10/21 00:00 98.1 F 71 96 H 24 112/60 96 06/09/21 23:51 66 116/55 96 06/09/21 23:30 73 19 116/55 96 06/09/21 23:00 71 25 H 112/61 95 06/09/21 22:30 75 32 H 159/91 93 06/09/21 22:00 79 27 H 118/66 96 06/09/21 21:45 84 117/68 06/09/21 21:30 79 36 H 115/69 98 06/09/21 21:00 79 22 115/69 100 06/09/21 20:30 83 33 H 117/68 98 06/09/21 20:10 84 117/68 98 06/09/21 20:00 99.4 F 78 96 H 25 H 117/68 97 06/09/21 19:30 82 28 H 151/59 95 06/09/21 19:00 111 H 52 H 159/91 100 06/09/21 18:30 120 H 26 H 153/93 100 06/09/21 18:22 99.9 F H 06/09/21 18:00 117 H 32 H 141/78 100 06/09/21 17:30 97 H 33 H 101/77 100 06/09/21 17:00 95 H 29 H 148/83 97 06/09/21 16:46 96 H 34 H 99 06/09/21 16:30 119 H 45 H 131/65 98 06/09/21 16:10 102 H 06/09/21 16:00 99.9 F H 119 H 13 131/65 99 100 06/09/21 15:30 90 29 H 115/58 100 06/09/21 15:00 112/65 99 - Physical Examination General: No Apparent Distress HEENT: Positive: Normocephaly Neck: Positive: neck supple, trachea midline. Negative: JVD/HJR Cardiac: Positive: Reg Rate and Rhythm Lungs: Positive: Decreased Breath Sounds Neuro: Positive: Grossly Intact Abdomen: Positive: Soft Skin: Negative: Rash Extremities: Present: warm. Absent: edema - Labs and Meds CBC 06/10/21 Range/Units 05:53 WBC 10.8 (4.5-11.0) K/mm3 RBC 3.68 (3.65-5.03) M/mm3 Hgb 10.3 L (11.8-15.2) gm/dl Hct 31.7 L (35.5-45.6) % Plt Count 527 H (140-440) K/mm3 Comprehensive Metabolic Panel 06/10/21 06/10/21 Range/Units 05:53 05:53 Sodium 142 (137-145) mmol/L Potassium 3.9 (3.6-5.0) mmol/L Chloride 106.8 (98-107) mmol/L Carbon Dioxide 28 (22-30) mmol/L BUN 13 (9-20) mg/dL Creatinine 0.6 L 0.6 L (0.8-1.3) mg/dL Glucose 128 H (75-100) mg/dL Calcium 8.9 (8.4-10.2) mg/dL - Imaging and Cardiology EKG: report reviewed, image reviewed Echo: report reviewed Cardiac cath: report reviewed - Telemetry EKG Rhythm: Sinus Rhythm - EKG Sinus rhythms and dysrhythmias: sinus rhythm Ventricular dysrhythmias: ventricular premature com Repolarization changes or abnormalities: nonspecific abnormality, ST segment, and/or T wave - Allied health notes Allied health notes reviewed: nursing
[2021-06-10] MEDS: LORazepam 2 MG/ML VIAL IV PRN (15:51)
--- NOTE | 2021-06-10 15:51 | Discharge Summary ---
Providers - Providers Date of Admission: 05/23/21 11:44 Date of discharge: 06/10/21 Attending physician: LUZ LEE MD 05/23/21 11:44 Consult to Physician [CONS] Routine Comment: Consulting Provider: SRINIVASA NEIL Physician Instructions: Reason For Exam: respiratory failure/Overdose 05/23/21 13:53 Consult to Mental Health [CONS] Routine Reason For Exam: Suicide attempt 05/24/21 09:22 Consult to Physician [CONS] Routine Comment: Consulting Provider: DESI MACDONALD Physician Instructions: Reason For Exam: acute kidney injury 05/27/21 13:03 Consult to Physician [CONS] Urgent Comment: Consulting Provider: RACHAEL HURTADO Physician Instructions: Reason For Exam: New onset Heart Failure? Tachycardia 05/29/21 08:45 Consult to Dietitian/Nutrition [CONS] Routine Physician Instructions: Assess nutrtn needs, initiate, modify, manage TF Reason For Exam: Reason for Consult: Write/Manage Tube Feeding Reason for Consult: Write/Manage Tube Feeding 05/30/21 13:25 Consult to PICC Line RN [CONS] Urgent Reason For Exam: On pressors Type Line:: PICC 06/03/21 08:00 Consult to Physician [CONS] Routine Comment: mariella shanks/ marleen Consulting Provider: NANCY GRIFFIN Physician Instructions: Reason For Exam: trach/peg 06/03/21 11:37 Consult to Physician [CONS] Routine Comment: Consulting Provider: TANIKA SUÁREZ Physician Instructions: Reason For Exam: foreign object/dvt in RUE, s/p picc 06/08/21 12:12 Physical Therapy Evaluation and Treat [CONS] Routine Comment: Reason For Exam: Conditioning Primary care physician: SALON COORDINATOR Hospitalization Reason for admission: Acute Hypoxic Respiratory Failure Condition: Stable Hospital course: This is a 40-year-old male with known history of HFrEF, methamphetamine dependence, and nicotine dependence admitted for drug overdose and acute metabolic encephalopathy. Patient went into respiratory failure and was intubated requiring ventilatory support s/p trach and PEG. Hospital Course to date: 05/25/2021: Worsening interstitial infiltrates. unclear if this is a developing pneumonia from aspiration/volume overload. Empiric abx coverage. ECHO with bubble study ordered. Placed on iv abx. kidney function improving. 05/26/2021: Tachycardic on levo gtt, advised RN to titrate down as long as MAP > 65. HR improved on my follow up encounter. PCCM titrating vent down. Renal function improving....Cr now 1.3. No indication for RECONCILIATION ANALYST at this time per nephro. 05/27/2021: Extubated yesterday however in respiratory distress, re-intubated. Patient has severe systolic heart failure. Cardiology consulted for severe systolic heart failure. Will need to discuss optimal strategy regarding diures is. 05/28: Patient remains on the vent. Febrile overnight, no longer on IV abx, leukocytosis improved, will panculture patient for now hold off on IV Abx. D/W CCM plan to wean sedation, depends on patient's mental status possible extubation today. Patient with low EF 20 to 25%, IVF D/nickolas. FWF for hypernatrenia, repeat lab in the am. 05/29- With increased agitation and tachycardia, maxed out on precedex and fentanyl gtt. Patient appears to be in withdrawal, Ativan added. Remains febrile, off pressors this am, leukocytosis improved. Continue to f/u on culture data. Hypernatremia this am, on D5w per nephro, electrolyte repleted, repeat labs in the am 05/30: Patient very aggresive this am maxed on sedation, X1 dose of Geodeon ordered. Now on low dose Levophed, patient still with low grade fevers this am. Hypotension is probably r/t sedation. Recent cultures with NGTD, UA negative. Continue to monitor for now. Na improved, IVF off this and K repleted, repeat labs in the am. 05/31: Patient was extubated today, IV fluid discontinued, given Lasix per cardiology, increasing free water flush. Weaned off Levophed. Patient noted to be lethargic several hours post Precedex infusion discontinuation. Patient extubated to BiPAP after given racemic epinephrine. Patient remains lethargic and off of BiPAP will consider CT head in the a.m. 06/01: Patient remained on BiPAP overnight, given agitation as needed Haldol/Ativan and Benadryl given while patient remained maxed on Precedex. Given increased work of breathing and tachypnea patient was electively reintubated. Free water flushes/tube feeding/p.o. medications to restart upon confirmation of DHT. Lasix stopped per cardiology recommendations. CT head ordered. 06/02: Started on midodrine 3 times daily per cardiology as patient has soft blood pressures and required Levophed overnight. Upper extremity with PICC noted to have significant swelling and possible discoloration around insertion site. Ordered RN to remove PICC and use peripheral IVs as patient does not have any medications requiring central access at this time. Hypernatremia worsened however patient did not receive multiple doses of free water flush while on continuous BiPAP. [facility] made vent changes. Surgery consulted. 06/03: Patient noted to have an acute DVT in right upper extremity and started on heparin drip. pest control service technician noted possible foreign object retained and vascular surgery was consulted. Obtain CT of upper extremity. Surgery was consulted for trach/PEG. Patient remains on max doses of fentanyl, propofol and Precedex. Versed added. Started on Unasyn. MRI brain ordered. 06/04: Patient received a trach/PEG today, remains on propofol, Versed, fentanyl. Heparin drip off and tube feeding off for surgery. 06/05: Tracheal aspirate grew Enterobacter which is sensitive to ampicillin which the patient was still on. Slight hypokalemia noted reduce repleted. Patient remains on Precedex, propofol and Versed for sedation. Bilateral soft restraints in place. [facility] will hold off weaning trials as patient is still not adequate sedated. Heparin drip resumed. 06/06: Started on Seroquel twice daily in efforts to wean off sedation. Hypernatremia and hyperchloremia noted and free water flush increased, potassium and magnesium repleted. 06/07: Back on sedation overnight due to increase agitation. Plan to wean off propofol, continue daily PST. No longer of pressors, BB and lasix resumed to prevent worsening pulmonary edema/worse pulmonary status. AC was also switched to PO Elquis for DVT. Possible LTAC placement, case management to arrange. 06/08: Patient is more alert today, following simple commands. Remains on fentanyl and precedes gtt. Plan is to wean off fentanyl today for possible PST. Case management to arrange placement. 22: Patient has been off fentanyl gtt, still on precedex gtt. Tolerating PST today, plan to continue PST as long patient can tolerate it today. Okay to rest patient on the vent overnight. Electrolytes repleted, repeat labs in the am. Case management to arrange possible placement. Assessment and Plan #Acute hypoxic respiratory failure #Bilateral Pneumonia #Possible Aspiration - Intially Intubated in the ED on 05/23 for airway protection - Extubated and reintubated on 05/27 for respiratory distress - Extubated on 05/31, was reintubated on 06/01 - 06/04 s/p Trach and PEG by Gen Surgery - Vent Setting:PS-30%,6 PS-10 - Okay to rest patient on the vent overnight - CCM consulted, appreciate recommendations - Continue Nebs per CCM - VAP bundle addressed - Aspiration precaution HOB above 30 - Daily SBT as tolerated - PRN ABG and CXR per CCM - Continue SPO2 monitoring for SPO2 goal above 92% - Plan for possible LTAC placement- Case management to arrange #HFrEF #Cardiomegaly - Cardiology on consult, appreciated recommendations - 05/25/2021: Echo- EF 20 to 25%. Severe global hypokinesis of left ventricle. Left ventricle is moderately dilated. Doppler flow suggests impaired LV relaxation. Moderate mitral regurgitation. No pericardial effusion - 08/04/2020: Cardiac cath- Angiographically normal coronary arteries. This is indicative of a nonischemic cardiomyopathy. Mildly elevated biventricular filling pressures with normal cardiac index - 08/02/2020: Echo- EF 18%,Severe global LV hypokinesis. Normal LV diastolic function. LA mildly dilated. Moderate mitral regurgitation with an eccentric MR jet(s),No previous echocardiogram for comparison. - Patient is off pressors - BP normalized, midodrine has been held - BB and Lasix resumed - Continue blood pressure monitor per protocol - Maintain MAP above 65 #Acute Toxic Metabolic Encephalopathy #Overdose by Ingestion #H/o Polysubstance Abuse - amphetamines in tox screen - remains on precedex gtt - On Seroquel - Continue PRN Ativan and Haldol fro agitation - Titrate sedation for RASS goal of 0 to -1 - Prn analgesia for CPOT greater than 3 - Maintenance of sleep-wake cycle #Acute Kidney Injury due to Acute Tubular Necrosis #Hypokalemia #Hypernatremia-improved - Cr: 3.5 on 03/24, baseline 0.9. suspect dehydration vs toxic exposure vs rhabdo - Renal function improved with IV hydration - Nephrology on consult, appreciated recommendation - Strict intake and output - Daily weight - Avoid nephrotoxic medications; Renally dose medications - Monitor and replace electrolytes as needed - Trend BMP #Sepsis POA #Sinusitis #Bilateral Pneumonia #Lactic Acidosis - febrile, elevated lactic, source likely pulmonary - COVID PCR neg - UA is negative. Blood culture & Urine culture NGTD - 06/02 sputum culture + enterobacter - Continue IV Abx-Unasyn - Continue to F/U on B.cult - Daily CBC monitor - Consider ID consult if with persistent fever or/and if leukocytosis reoccur #Acute Right Upper Extremity DVT #C/f Possible Retained foreign object in right upper extremity - Noted on right upper extremity Doppler - C/f Possible Retained foreign object in right upper extremity - Vascular Surgery was consulted - Bedside ultrasound by Vascular revealed possible fibrin sheath - CT of Right upper extremity shows no retained object - On Heparin drip- switch to PO Eliquis - #GI/DVT Prophylaxis - Continue PPI- pepcid - Switched AC to Eliquis - SCDs to bilateral lower extremities while in bed Disposition: [facility] Final Discharge Diagnosis (Prints w/discharge instructions): Acute Hypoxic Respiratory Failure Time spent for discharge: 35 Core Measure Documentation - Palliative Care Palliative Care/ Comfort Measures: Not Applicable - Core Measures Any of the following diagnoses?: DVT/PE - VTE Discharge Requirements Deep Vein Thrombosis/Pulmonary Embolism Present on Admission: No Has pt received <5 days of overlap therapy or INR<2.0: Yes (Now on Eliquis) Anticoagulant overlap therapy prescribed at discharge: No Contraindication No Overlap Therapy order at DC: Not Indicated Exam - Constitutional Vitals: Temp Pulse Resp BP Pulse Ox 99.9 F H 82 14 120/34 94 06/10/21 12:00 06/10/21 15:30 06/10/21 15:30 06/10/21 15:30 06/10/21 15:30 General appearance: Present: no acute distress, well-nourished, obese - EENT Eyes: Present: PERRL, EOM intact ENT: hearing intact - Neck Neck: Present: normal ROM - Respiratory Respiratory effort: normal Respiratory: bilateral: rhonchi - Cardiovascular Rhythm: regular Heart Sounds: Present: S1 & S2 - Extremities Extremities: no ischemia, pulses intact, pulses symmetrical Extremity abnormal: edema - Peripheral Assessment Generalized Edema Type: Non-pitting Edema Degree: 2+ Capillary Refill: < 3 seconds Skin Temperature: Warm Peripheral Pulses: within normal limits - Abdominal General gastrointestinal: Present: soft, non-distended, normal bowel sounds Male genitourinary: Present: normal - Rectal Rectal Exam: deferred - Integumentary Integumentary: Present: warm, dry - Musculoskeletal Musculoskeletal: generalized weakness - Psychiatric Psychiatric: appropriate mood/affect, cooperative - Neurologic Neurologic: CNII-XII intact, moves all extremities - Allied Health Allied health notes reviewed: nursing, case management Plan Activity: advance as tolerated Diet: other (Has a PEGtube in place, TF order per LTAC facility) Wound: open to air Follow up with: PRIMARY CARE, [Primary Care Provider] - 3-5 Days
[2021-06-10 16:44] VITALS: BP 129/57
[2021-06-14] MEDS ORDERED: APIXABAN 5 MG TAB PO SCH (10:00)
== END 2021-06-10 16:58 | DRG 4 ==
LOC: ED 09:14 → CC1 11:44
PROVIDERS: ADMIT Internal Medicine; ATTEND Internal Medicine
PROC: 5A1955Z Respiratory Ventilation, Greater than 96 Consecutive Hours (ICD-10-PCS; 2021-05-23)
PROC: 0BH17EZ Insertion of Endotracheal Airway into Trachea, Via Natural or Artificial Opening (ICD-10-PCS; 2021-05-23)
PROC: 4A033R1 Measurement of Arterial Saturation, Peripheral, Percutaneous Approach (ICD-10-PCS; 2021-05-24)
PROC: 02HV33Z Insertion of Infusion Device into Superior Vena Cava, Percutaneous Approach (ICD-10-PCS; 2021-05-30)
PROC: 5A09357 Assistance with Respiratory Ventilation, Less than 24 Consecutive Hours, Continuous Positive Airway Pressure (ICD-10-PCS; 2021-05-31)
PROC: 06HY33Z Insertion of Infusion Device into Lower Vein, Percutaneous Approach (ICD-10-PCS; 2021-06-03)
PROC: 0DH63UZ Insertion of Feeding Device into Stomach, Percutaneous Approach (ICD-10-PCS; principal; 2021-06-04)
PROC: 0B113F4 Bypass Trachea to Cutaneous with Tracheostomy Device, Percutaneous Approach (ICD-10-PCS; 2021-06-04)
PROC: 0BJ08ZZ Inspection of Tracheobronchial Tree, Via Natural or Artificial Opening Endoscopic (ICD-10-PCS; 2021-06-04)
DX: A41.9 Sepsis, unspecified organism (principal); J96.01 Acute respiratory failure with hypoxia; G92.8 Other toxic encephalopathy; N17.0 Acute kidney failure with tubular necrosis; J81.0 Acute pulmonary edema; I50.23 Acute on chronic systolic (congestive) heart failure; J69.0 Pneumonitis due to inhalation of food and vomit; M62.82 Rhabdomyolysis; E87.0 Hyperosmolality and hypernatremia; I82.621 Acute embolism and thrombosis of deep veins of right upper extremity; T43.621A Poisoning by amphetamines, accidental (unintentional), initial encounter; E87.5 Hyperkalemia; Y92.89 Other specified places as the place of occurrence of the external cause; F17.200 Nicotine dependence, unspecified, uncomplicated; Z82.49 Family history of ischemic heart disease and other diseases of the circulatory system; E87.6 Hypokalemia; Z20.822 Contact with and (suspected) exposure to COVID-19; E83.42 Hypomagnesemia
CPT/HCPCS: 36415; 36600; 70450; 70551; 71045; 74018; 76705; 80048; 80053; 80074; 80076; 80307; 80320; 81001; 82140; 82550; 82565; 82803; 82805; 82962; 83735; 83880; 84100; 84145; 84478; 84484; 85007; 85014; 85018; 85025; 85027; 85049; 85520; 85610; 85730; 86140; 87040; 87070; 87076; 87086; 87186; 87205; 93005; 93010; 93306; 94002; 94003; 94640; 94660; G0378; J2354; J3490; J7120; J7121; J7510; J9280; Q0162; Q9967; C8929; G0480; J0295; J0330; J0610; J0692; J1170; J1200; J1630; J1644; J1650; J1815; J1940; J2060; J2250; J2310; J2704; J3010; J3370; J3475; J3480; J3486; J7030; J7040; J7050; J7070; P9047; U0003